=== PATIENT | male | born 1940 | race African-American/Black ===

== ENCOUNTER 2020-03-10 05:10 | Inpatient (IN) | payer MEDICARE, OTHER ==
[2020-03-10] VITALS (15 sets, daily range): BP systolic 96–161; BP diastolic 67–95
[~2020-03-10] VITALS: Ht 177.8 cm; Wt 61.7 kg
--- NOTE | 2020-03-10 05:25 | Emergency Room Report ---
History of Present Illness General Chief Complaint: Dyspnea/Respdistress Source: Patient, Medical Record, EMS (Raimundo Jimenez MD) Present Illness HPI This is an 79-year-old male from senior care. He has a history of high blood pressure COPD. He presents with respiratory distress and shortness of breath. Onset today. He was positive for COVID on March 05, 2020. Symptoms worsened tonight. He said he could not breathe. Per EMS, he was 90% on room air. They put him on oxygen and brought him here. Patient has no fever chills but no nausea no vomiting. Cough is not productive in nature. No chest pain. 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 ASSISTANT: Yes COVID-19 Screening: Positive COVID-19 COVID-19 Testing Source: snf (Raimundo Jimenez MD) Patient History Past Medical History: see triage record, old chart reviewed, HTN, COPD, pneumonia, CVA/TIA Past Surgical History: other Pertinent Family History: none Social History: Denies: smoking Immunizations: other Reviewed Nursing Documentation: PMH: Agreed; PSxH: Agreed (Raimundo Jimenez MD) Review of Systems Eye: Denies: eye pain, blurred vision ENT: Denies: ear pain, nose congestion, throat swelling Respiratory: Reports: cough, shortness of breath Cardiovascular: Denies: chest pain, palpitations Gastrointestinal: Denies: abdominal pain, diarrhea, nausea, vomiting Musculoskeletal: Denies: back pain, joint pain Skin: Denies: rash Neurological: Denies: headache, numbness Endocrine: Denies: increased thirst, increased urine Hematologic/Lymphatic: Denies: easy bruising All Other Systems: negative except mentioned in HPI (Raimundo Jimenez MD) Physical Exam Vital Signs Date Time Temp Pulse Resp B/P (MAP) Pulse Ox O2 Delivery O2 Flow Rate FiO2 03/10/20 05:07 97.0 88 22 143/95 (111) 99 Non-Rebreather Vitals with hypoxia Sp02 EP Interpretation: reviewed, abnormal General Appearance: alert, mild distress, Chronically Ill Head: normocephalic, atraumatic Eyes: bilateral eye PERRL, bilateral eye EOMI ENT: hearing grossly normal, normal pharynx Neck: full range of motion, supple, no meningismus Respiratory: chest non-tender, respiratory distress, decreased breath sounds, rhonchi Cardiovascular #1: regular rate, rhythm, no murmur Gastrointestinal: normal bowel sounds, non tender, no mass, no organomegaly, no bruit, non-distended Musculoskeletal: back normal, normal range of motion Neurologic: alert, grossly normal Psychiatric: mood/affect normal Skin: no rash Lymphatic: normal inspection (Raimundo Jimenez MD) Procedures Critical Care Time Critical Care Time Critical care is mandated in this patient who presented with respiratory failure from covered pneumonia. Patient require my urgent intervention to attenuate the risks of the metabolic collapse which may lead to cardiovascular collapse and . Critical care time is 35 minutes excluding any reportable procedure. Critical care time included evaluation, multiple reevaluation, looking at old charts, interpreting laboratory and diagnostic data, discussing case with patient and family and consultants, and charting. (Raimundo Jimenez MD) Medical Decision Making Diagnostic Impression: Primary Impression: Pneumonia due to COVID-19 virus Additional Impression: Respiratory failure with hypoxia Qualified Codes: J96.21 - Acute and chronic respiratory failure with hypoxia ER Course Patient presents with respiratory distress. He is positive for COVID on March 05. He is currently on azithromycin at the senior care. I gave him Lovenox and steroid here also. Patient will be admitted for further work-up. Prognosis poor because of his age and multiple medical problems. Patient will be admitted under service of Dr. Saul. (Raimundo Jimenez MD) ER Course Patient was endorsed to me by Dr. Jimenez. Patient was noted to have COVID pneumonia as well as chronic respiratory failure. Continue to be somewhat tachypneic and despite this his CO2 was somewhat elevated. Coronavirus testing was positive and patient was in a negative pressure room he was started on BiPAP. Dr. Torres Saul was contacted for inpatient management Labs Test 03/10/20 05:45 03/10/20 06:50 White Blood Count 4.1 K/UL (4.8-10.8) Red Blood Count 4.21 M/UL (4.70-6.10) Hemoglobin 12.2 G/DL (14.2-18.0) Hematocrit 37.5 % (42.0-52.0) Mean Corpuscular Volume 89 FL (80-99) Mean Corpuscular Hemoglobin 29.0 PG (27.0-31.0) Mean Corpuscular Hemoglobin Concent 32.6 G/DL (32.0-36.0) Red Cell Distribution Width 12.9 % (11.6-14.8) Platelet Count 140 K/UL (150-450) Mean Platelet Volume 4.9 FL (6.5-10.1) Neutrophils (%) (Auto) 60.1 % (45.0-75.0) Lymphocytes (%) (Auto) 26.1 % (20.0-45.0) Monocytes (%) (Auto) 11.9 % (1.0-10.0) Eosinophils (%) (Auto) 0.5 % (0.0-3.0) Basophils (%) (Auto) 1.4 % (0.0-2.0) Prothrombin Time 11.3 SEC (9.30-11.50) Prothromb Time International Ratio 1.0 (0.9-1.1) Activated Partial Thromboplast Time 22 SEC (23-33) D-Dimer 0.37 mg/L FEU (0.00-0.49) Sodium Level 139 MMOL/L (136-145) Potassium Level 4.1 MMOL/L (3.5-5.1) Chloride Level 100 MMOL/L (98-107) Carbon Dioxide Level 32 MMOL/L (21-32) Anion Gap 7 mmol/L (5-15) Blood Urea Nitrogen 19 mg/dL (7-18) Creatinine 0.9 MG/DL (0.55-1.30) Estimat Glomerular Filtration Rate > 60 mL/min (>60) Glucose Level 120 MG/DL (74-106) Lactic Acid Level 1.30 mmol/L (0.4-2.0) Calcium Level 8.8 MG/DL (8.5-10.1) Ferritin 335 NG/ML (8-388) Total Bilirubin 0.4 MG/DL (0.2-1.0) Aspartate Amino Transf (AST/SGOT) 47 U/L (15-37) Alanine Aminotransferase (ALT/SGPT) 30 U/L (12-78) Alkaline Phosphatase 66 U/L (46-116) Lactate Dehydrogenase 364 U/L (81-234) Total Creatine Kinase 274 U/L (26-308) Creatine Kinase MB 6.3 NG/ML (0.0-3.6) Creatine Kinase MB Relative Index 2.2 Troponin I 0.011 ng/mL (0.000-0.056) C-Reactive Protein, Quantitative 11.6 mg/dL (0.00-0.90) Pro-B-Type Natriuretic Peptide 61 pg/mL (0-125) Total Protein 7.3 G/DL (6.4-8.2) Albumin 3.0 G/DL (3.4-5.0) Globulin 4.3 g/dL Albumin/Globulin Ratio 0.7 (1.0-2.7) Lipase 111 U/L (73-393) Arterial Blood pH 7.303 (7.350-7.450) Arterial Blood Partial Pressure CO2 68.2 mmHg (35.0-45.0) Arterial Blood Partial Pressure O2 227.2 mmHg (75.0-100.0) Arterial Blood HCO3 33.0 mmol/L (22.0-26.0) Arterial Blood Oxygen Saturation 99.1 % (95-100) Arterial Blood Base Excess 4.9 (-2-2) Chadwick Test Positive (Ellis Prieto MD) EKG Diagnostic Results Rate: normal Rhythm: NSR ST Segments: other - NSST changes (Raimundo Jimenez MD) Rhythm Strip Diag. Results EP Interpretation: yes Rate: 100 Rhythm: NSR, no PVC's, no ectopy (Raimundo Jimenez MD) Last Vital Signs Date Time Temp Pulse Resp B/P (MAP) Pulse Ox O2 Delivery O2 Flow Rate FiO2 03/10/20 05:07 97.0 88 22 143/95 (111) 99 Non-Rebreather Status: improved (Raimundo Jimenez MD) Status: improved (Ellis Prieto MD) Disposition: ADMITTED INPATIENT Condition: Serious Raimundo Jimenez MD Mar 10, 2020 05:25 Ellis Prieto MD Mar 10, 2020 07:25
[2020-03-10] MEDS ORDERED: cefTRIAXone 1 GM in NS 55 ML IVPB ONE (05:30)
[2020-03-10] MEDS ORDERED: dexAMETHasone 10mg/ml Inj IV ONE (05:30)
[2020-03-10] MEDS ORDERED: Enoxaparin 100mg Inj SUBQ ONE (05:30)
[2020-03-10] MEDS ORDERED: Azithromycin 500 MG in NS 275 ML IV ONE (05:30)
[2020-03-10] MEDS ORDERED: MELATONIN3 MG ORAL (05:57)
[2020-03-10] MEDS ORDERED: PREDNISONE20 MG ORAL (05:57)
[2020-03-10] MEDS ORDERED: ELIQUIS2.5 MG PO (05:57)
[2020-03-10] MEDS ORDERED: DOCUSATE SODIU100 MG ORAL (05:57)
[2020-03-10] MEDS ORDERED: BISACODYL5 MG ORAL (05:57)
[2020-03-10] MEDS ORDERED: FAMOTIDINE20 MG ORAL (05:57)
[2020-03-10] MEDS ORDERED: ACETAMINOPHEN325 M1 ORAL (05:57)
[2020-03-10] MEDS ORDERED: FLOMAX0.4 MG ORAL (05:57)
[2020-03-10] MEDS ORDERED: BACLOFEN10 MG ORAL (05:57)
[2020-03-10] MEDS ORDERED: GABAPENTIN400 MG ORAL (05:57)
[2020-03-10 06:05] LABS: BASOPHILS % (AUTO) 1.4 % (0.0-2.0); EOSINOPHILS % (AUTO) 0.5 % (0.0-3.0); HEMATOCRIT 37.5 % (42.0-52.0); HEMOGLOBIN 12.2 G/DL (14.2-18.0); LYMPHOCYTES % (AUTO) 26.1 % (20.0-45.0); MEAN CORPUSCULAR VOLUME 89 FL (80-99); MONOCYTES % (AUTO) 11.9 % (1.0-10.0); NEUTROPHILS % (AUTO) 60.1 % (45.0-75.0); PLATELET COUNT 140 K/UL (150-450); RED BLOOD COUNT 4.21 M/UL (4.70-6.10); RED CELL DISTRIBUTION WIDTH 12.9 % (11.6-14.8); WHITE BLOOD COUNT 4.1 K/UL (4.8-10.8)
[2020-03-10 06:23] LABS: ANION GAP 7 mmol/L (5-15); BLOOD UREA NITROGEN 19 mg/dL (7-18); CALCIUM 8.8 MG/DL (8.5-10.1); CARBON DIOXIDE 32 MMOL/L (21-32); CHLORIDE 100 MMOL/L (98-107); CREATININE 0.9 MG/DL (0.55-1.30); POTASSIUM 4.1 MMOL/L (3.5-5.1); SODIUM 139 MMOL/L (136-145)
[2020-03-10 06:38] LABS: ALANINE AMINOTRANSFERASE 30 U/L (12-78); ALBUMIN/GLOBULIN RATIO 0.7 (1.0-2.7); ALKALINE PHOSPHATASE 66 U/L (46-116); ASPARTATE AMINO TRANSFERASE 47 U/L (15-37); BILIRUBIN,TOTAL 0.4 MG/DL (0.2-1.0); CKMB 6.3 NG/ML (0.0-3.6); CREATINE KINASE 274 U/L (26-308); FERRITIN 335 NG/ML (8-388); LACTATE DEHYDROGENASE 364 U/L (81-234)
[2020-03-10] MEDS ORDERED: Albuterol/Ipratropium 3ml neb HHN PRN (07:30)
[2020-03-10] MEDS ORDERED: Promethazine/Codeine 5ml UD ORAL PRN (07:30)
--- NOTE | 2020-03-10 09:56 | Diagnostic Imaging Report ---
Indication: Shortness of breath Technique: One view of the chest Comparison: none Findings: The lungs are hyperinflated. There is likely bullous change at the left lung base and possibly the right lung base. Lower lobe hyperinflation results in some volume loss of the right upper lobe. There may be infiltrate in the right upper lobe. The costophrenic angles are blunted. The heart size is normal. The aorta is tortuous and ectatic Impression: Possible right upper lobe infiltrate COPD changes Bilateral costophrenic angle blunting. Likely related to the hyperinflation but small effusions also possible.
--- NOTE | 2020-03-10 11:25 | Consultation ---
History of Present Illness General Date patient seen: Mar 10, 2020 Chief Complaint: Dyspnea/Respdistress Present Illness HPI 79-year-old male with history of high blood pressure, COPD, CVA intermediate resident presented to ER with CC of respiratory distress and shortness of sagrario th for one day. He said he could not breathe. Per EMS, he was 90% on room air. They put him on oxygen and brought him here. Patient has no fever chills but no nausea no vomiting. Cough is not productive in nature. Allergies: Coded Allergies: PENICILLINS (Verified Allergy, Unknown, 03/10/20) PHENYTOIN (Verified Allergy, Unknown, 03/10/20) Medication History Scheduled Baclofen* (Baclofen*), 5 MG ORAL THREE TIMES A DAY, (Reported) Bisacodyl* (Dulcolax*), 5 MG ORAL DAILY, (Reported) Docusate Sodium* (Docusate Sodium*), 200 MG ORAL DAILY, (Reported) Famotidine* (Pepcid 20mg tablet*), 40 MG ORAL DAILY, (Reported) Gabapentin* (Gabapentin*), 300 MG ORAL THREE TIMES A DAY, (Reported) Prednisone* (Prednisone*), 20 MG ORAL DAILY, (Reported) Tamsulosin HCl (Flomax), 0.4 MG ORAL DAILY, (Reported) Scheduled PRN Acetaminophen* (Acetaminophen 325MG Tablet*), 325 MG ORAL Q4H PRN for , (Reported) Melatonin (Melatonin), 3 MG ORAL BEDTIME PRN for Insomnia, (Reported) Miscellaneous Medications Apixaban (Eliquis), 2.5 MG PO, (Reported) Patient History Healthcare decision maker Resuscitation status Advanced Directive on File Past Medical/Surgical History Past Medical/Surgical History: (1) History of CVA (cerebrovascular accident) (2) COPD (chronic obstructive pulmonary disease) (3) HTN (hypertension) Review of Systems Respiratory: Reports: cough, shortness of breath All Other Systems: negative except mentioned in HPI Physical Exam General Appearance: WD/WN Lines, tubes and drains: peripheral HEENT: normocephalic, atraumatic Neck: non-tender, normal alignment Respiratory/Chest: chest wall non-tender, lungs clear Cardiovascular/Chest: normal peripheral pulses, normal rate Abdomen: normal bowel sounds, non tender Genitourinary/Rectal: normal genital exam Extremities: normal range of motion Skin Exam: normal pigmentation Neurologic: color consultant II-XII grossly normal Last 24 Hour Vital Signs Date Time Temp Pulse Resp B/P (MAP) Pulse Ox O2 Delivery O2 Flow Rate FiO2 03/10/20 09:17 88 22 125/77 100 Bi-pap 15.0 35 03/10/20 08:45 15.0 35 03/10/20 08:15 87 40 122/70 70 Venturi Mask 15.0 03/10/20 07:09 96 33 100 28 03/10/20 06:40 97.0 94 22 119/67 100 Non-Rebreather 15.0 03/10/20 05:59 97.0 102 22 143/95 99 Non-Rebreather 03/10/20 05:59 102 22 Non-Rebreather 15.0 03/10/20 05:07 97.0 88 22 143/95 (111) 99 Non-Rebreather Intake and Output 03/09/20 03/10/20 19:00 07:00 Intake Total 55 ml Balance 55 ml Intake IV Total 55 ml Laboratory Tests Test 03/10/20 05:45 03/10/20 06:50 White Blood Count 4.1 K/UL (4.8-10.8) L Red Blood Count 4.21 M/UL (4.70-6.10) L Hemoglobin 12.2 G/DL (14.2-18.0) L Hematocrit 37.5 % (42.0-52.0) L Mean Corpuscular Volume 89 FL (80-99) Mean Corpuscular Hemoglobin 29.0 PG (27.0-31.0) Mean Corpuscular Hemoglobin Concent 32.6 G/DL (32.0-36.0) Red Cell Distribution Width 12.9 % (11.6-14.8) Platelet Count 140 K/UL (150-450) L Mean Platelet Volume 4.9 FL (6.5-10.1) L Neutrophils (%) (Auto) 60.1 % (45.0-75.0) Lymphocytes (%) (Auto) 26.1 % (20.0-45.0) Monocytes (%) (Auto) 11.9 % (1.0-10.0) H Eosinophils (%) (Auto) 0.5 % (0.0-3.0) Basophils (%) (Auto) 1.4 % (0.0-2.0) Prothrombin Time 11.3 SEC (9.30-11.50) Prothromb Time International Ratio 1.0 (0.9-1.1) Activated Partial Thromboplast Time 22 SEC (23-33) L D-Dimer 0.37 mg/L FEU (0.00-0.49) Sodium Level 139 MMOL/L (136-145) Potassium Level 4.1 MMOL/L (3.5-5.1) Chloride Level 100 MMOL/L (98-107) Carbon Dioxide Level 32 MMOL/L (21-32) Anion Gap 7 mmol/L (5-15) Blood Urea Nitrogen 19 mg/dL (7-18) H Creatinine 0.9 MG/DL (0.55-1.30) Estimat Glomerular Filtration Rate > 60 mL/min (>60) Glucose Level 120 MG/DL (74-106) H Lactic Acid Level 1.30 mmol/L (0.4-2.0) Calcium Level 8.8 MG/DL (8.5-10.1) Ferritin 335 NG/ML (8-388) Total Bilirubin 0.4 MG/DL (0.2-1.0) Aspartate Amino Transf (AST/SGOT) 47 U/L (15-37) H Alanine Aminotransferase (ALT/SGPT) 30 U/L (12-78) Alkaline Phosphatase 66 U/L (46-116) Lactate Dehydrogenase 364 U/L (81-234) H Total Creatine Kinase 274 U/L (26-308) Creatine Kinase MB 6.3 NG/ML (0.0-3.6) H Creatine Kinase MB Relative Index 2.2 Troponin I 0.011 ng/mL (0.000-0.056) C-Reactive Protein, Quantitative 11.6 mg/dL (0.00-0.90) H Pro-B-Type Natriuretic Peptide 61 pg/mL (0-125) Total Protein 7.3 G/DL (6.4-8.2) Albumin 3.0 G/DL (3.4-5.0) L Globulin 4.3 g/dL Albumin/Globulin Ratio 0.7 (1.0-2.7) L Lipase 111 U/L (73-393) Arterial Blood pH 7.303 (7.350-7.450) Arterial Blood Partial Pressure CO2 68.2 mmHg (35.0-45.0) *H Arterial Blood Partial Pressure O2 227.2 mmHg (75.0-100.0) H Arterial Blood HCO3 33.0 mmol/L (22.0-26.0) H Arterial Blood Oxygen Saturation 99.1 % (95-100) Arterial Blood Base Excess 4.9 (-2-2) H Chadwick Test Positive Microbiology Date/Time Source Procedure Growth Status 03/10/20 06:10 Rectum Received 03/10/20 05:20 Nasopharynx SARS-CoV-2 RdRp Gene Assay - Final Complete Height (Feet): 5 Height (Inches): 10.00 Weight (Pounds): 220 Medications Current Medications Medications (Trade) Dose Ordered Sig/Armand Route PRN Reason Start Time Stop Time Status Last Admin Dose Admin Acetaminophen (Tylenol) 650 mg Q4H PRN ORAL FEVER 03/10/20 07:30 04/09/20 07:29 Albuterol/ Ipratropium (Albuterol/ Ipratropium) 3 ml EVERY 4 HOURS PRN HHN Shortness of Breath 03/10/20 07:30 03/15/20 07:29 03/10/20 08:46 Azithromycin 250 mg/Dextrose 275 ml @ 275 mls/hr Q24HRS IV 03/11/20 06:00 03/16/20 05:59 Ceftriaxone Sodium 1 gm/ Dextrose 55 ml @ 110 mls/hr Q24H IVPB 03/11/20 05:00 03/18/20 04:59 Dextrose (Dextrose 50%) 25 ml Q30M PRN IV Hypoglycemia 03/10/20 07:30 06/08/20 07:29 Dextrose (Dextrose 50%) 50 ml Q30M PRN IV Hypoglycemia 03/10/20 07:30 06/08/20 07:29 Gabapentin (Neurontin) 300 mg THREE TIMES A DAY ORAL 03/10/20 09:00 04/09/20 08:59 Heparin Sodium (Porcine) (Heparin 5000 units/ml) 5,000 units EVERY 12 HOURS SUBQ 03/10/20 21:00 04/24/20 20:59 Ondansetron HCl (Zofran) 4 mg Q6H PRN IVP Nausea & Vomiting 03/10/20 07:30 04/09/20 07:29 Polyethylene Glycol (Miralax) 17 gm DAILYPRN PRN ORAL Constipation 03/10/20 07:30 04/09/20 07:29 Promethazine HCl/ Codeine (Phenergan with Codeine) 5 ml EVERY 6 HOURS PRN ORAL cough 03/10/20 07:30 04/09/20 07:29 Assessment/Plan Problem List: (1) Pneumonia due to COVID-19 virus ICD Codes: U07.1 - COVID-19; J12.89 - Other viral pneumonia SNOMED: 421404027, 908920842 (2) COPD (chronic obstructive pulmonary disease) ICD Codes: J44.9 - Chronic obstructive pulmonary disease, unspecified SNOMED: 74033311 (3) HTN (hypertension) ICD Codes: I10 - Essential (primary) hypertension SNOMED: 33196322 (4) History of CVA (cerebrovascular accident) ICD Codes: Z86.73 - Personal history of transient ischemic attack (TIA), and cerebral infarction without residual deficits SNOMED: 652202402 Assessment/Plan: respiratory treatment titrate fio2 to sat of 92% check sputum iv abx Decadron respiratory isolation Sayra Fay MD Mar 10, 2020 11:25
[2020-03-10 11:59] LABS: APPEARANCE,URINE CLEAR; BILIRUBIN, URINE NEGATIVE (NEGATIVE); GLUCOSE, URINE (UA) NEGATIVE (NEGATIVE); KETONES,URINE 3+ (NEGATIVE); LEUKOCYTE ESTERASE ,URINE NEGATIVE (NEGATIVE); NITRITE,URINE NEGATIVE (NEGATIVE); PH,URINE 6.5 (4.5-8.0); PROTEIN,URINE 2+ (NEGATIVE); UROBILINOGEN,URINE 4 MG/DL (0.0-1.0)
[2020-03-10 12:02] LABS: COLOR,URINE YELLOW
--- NOTE | 2020-03-10 15:22 | Consultation ---
History of Present Illness General Date patient seen: Mar 10, 2020 Chief Complaint: Dyspnea/Respdistress Present Illness HPI 79 y/o M with hx of HTN, COPD, CVA/TIA, [place] resident presented to ED on 03/10/20 with 1 days of SOB and non productive cough. 90% at RA per EMS. Denied f/c, n/v, chest pain Allergies: Coded Allergies: PENICILLINS (Verified Allergy, Unknown, 03/10/20) PHENYTOIN (Verified Allergy, Unknown, 03/10/20) Medication History Scheduled Baclofen* (Baclofen*), 5 MG ORAL THREE TIMES A DAY, (Reported) Bisacodyl* (Dulcolax*), 5 MG ORAL DAILY, (Reported) Docusate Sodium* (Docusate Sodium*), 200 MG ORAL DAILY, (Reported) Famotidine* (Pepcid 20mg tablet*), 40 MG ORAL DAILY, (Reported) Gabapentin* (Gabapentin*), 300 MG ORAL THREE TIMES A DAY, (Reported) Prednisone* (Prednisone*), 20 MG ORAL DAILY, (Reported) Tamsulosin HCl (Flomax), 0.4 MG ORAL DAILY, (Reported) Scheduled PRN Acetaminophen* (Acetaminophen 325MG Tablet*), 325 MG ORAL Q4H PRN for , (Reported) Melatonin (Melatonin), 3 MG ORAL BEDTIME PRN for Insomnia, (Reported) Miscellaneous Medications Apixaban (Eliquis), 2.5 MG PO, (Reported) Patient History Healthcare decision maker Resuscitation status Advanced Directive on File Patient History Narrative Pmhx: as above Shx:Denies: smoking Fhx: non contributory Review of Systems All Other Systems: negative except mentioned in HPI ROS Narrative General Appearance: WD/WN Lines, tubes and drains: peripheral HEENT: normocephalic, atraumatic Neck: non-tender, normal alignment Respiratory/Chest: chest wall non-tender, lungs clear Cardiovascular/Chest: normal peripheral pulses, normal rate Abdomen: normal bowel sounds, non tender Extremities: normal range of motion Skin Exam: normal pigmentation Physical Exam Last 24 Hour Vital Signs Date Time Temp Pulse Resp B/P (MAP) Pulse Ox O2 Delivery O2 Flow Rate FiO2 03/10/20 11:27 97.6 81 22 136/82 98 Bi-pap 15.0 35 03/10/20 10:45 90 28 99 Bi-Pap 28 95 28 100 03/10/20 09:17 88 22 125/77 100 Bi-pap 15.0 35 03/10/20 08:45 15.0 35 03/10/20 08:15 87 40 122/70 70 Venturi Mask 15.0 03/10/20 07:09 96 33 100 28 03/10/20 06:40 97.0 94 22 119/67 100 Non-Rebreather 15.0 03/10/20 05:59 97.0 102 22 143/95 99 Non-Rebreather 03/10/20 05:59 102 22 Non-Rebreather 15.0 03/10/20 05:07 97.0 88 22 143/95 (111) 99 Non-Rebreather Intake and Output 03/09/20 03/10/20 19:00 07:00 Intake Total 55 ml Balance 55 ml Intake IV Total 55 ml Laboratory Tests Test 03/10/20 05:45 03/10/20 06:50 03/10/20 11:40 White Blood Count 4.1 K/UL (4.8-10.8) L Red Blood Count 4.21 M/UL (4.70-6.10) L Hemoglobin 12.2 G/DL (14.2-18.0) L Hematocrit 37.5 % (42.0-52.0) L Mean Corpuscular Volume 89 FL (80-99) Mean Corpuscular Hemoglobin 29.0 PG (27.0-31.0) Mean Corpuscular Hemoglobin Concent 32.6 G/DL (32.0-36.0) Red Cell Distribution Width 12.9 % (11.6-14.8) Platelet Count 140 K/UL (150-450) L Mean Platelet Volume 4.9 FL (6.5-10.1) L Neutrophils (%) (Auto) 60.1 % (45.0-75.0) Lymphocytes (%) (Auto) 26.1 % (20.0-45.0) Monocytes (%) (Auto) 11.9 % (1.0-10.0) H Eosinophils (%) (Auto) 0.5 % (0.0-3.0) Basophils (%) (Auto) 1.4 % (0.0-2.0) Prothrombin Time 11.3 SEC (9.30-11.50) Prothromb Time International Ratio 1.0 (0.9-1.1) Activated Partial Thromboplast Time 22 SEC (23-33) L D-Dimer 0.37 mg/L FEU (0.00-0.49) Sodium Level 139 MMOL/L (136-145) Potassium Level 4.1 MMOL/L (3.5-5.1) Chloride Level 100 MMOL/L (98-107) Carbon Dioxide Level 32 MMOL/L (21-32) Anion Gap 7 mmol/L (5-15) Blood Urea Nitrogen 19 mg/dL (7-18) H Creatinine 0.9 MG/DL (0.55-1.30) Estimat Glomerular Filtration Rate > 60 mL/min (>60) Glucose Level 120 MG/DL (74-106) H Lactic Acid Level 1.30 mmol/L (0.4-2.0) Calcium Level 8.8 MG/DL (8.5-10.1) Ferritin 335 NG/ML (8-388) Total Bilirubin 0.4 MG/DL (0.2-1.0) Aspartate Amino Transf (AST/SGOT) 47 U/L (15-37) H Alanine Aminotransferase (ALT/SGPT) 30 U/L (12-78) Alkaline Phosphatase 66 U/L (46-116) Lactate Dehydrogenase 364 U/L (81-234) H Total Creatine Kinase 274 U/L (26-308) Creatine Kinase MB 6.3 NG/ML (0.0-3.6) H Creatine Kinase MB Relative Index 2.2 Troponin I 0.011 ng/mL (0.000-0.056) C-Reactive Protein, Quantitative 11.6 mg/dL (0.00-0.90) H Pro-B-Type Natriuretic Peptide 61 pg/mL (0-125) Total Protein 7.3 G/DL (6.4-8.2) Albumin 3.0 G/DL (3.4-5.0) L Globulin 4.3 g/dL Albumin/Globulin Ratio 0.7 (1.0-2.7) L Lipase 111 U/L (73-393) Arterial Blood pH 7.303 (7.350-7.450) Arterial Blood Partial Pressure CO2 68.2 mmHg (35.0-45.0) *H Arterial Blood Partial Pressure O2 227.2 mmHg (75.0-100.0) H Arterial Blood HCO3 33.0 mmol/L (22.0-26.0) H Arterial Blood Oxygen Saturation 99.1 % (95-100) Arterial Blood Base Excess 4.9 (-2-2) H Chadwick Test Positive Urine Color Yellow Urine Appearance Clear Urine pH 6.5 (4.5-8.0) Urine Specific Elbert 1.005 (1.005-1.035) Urine Protein 2+ (NEGATIVE) H Urine Glucose (UA) Negative (NEGATIVE) Urine Ketones 3+ (NEGATIVE) H Urine Blood 4+ (NEGATIVE) H Urine Nitrite Negative (NEGATIVE) Urine Bilirubin Negative (NEGATIVE) Urine Urobilinogen 4 MG/DL (0.0-1.0) H Urine Leukocyte Esterase Negative (NEGATIVE) Urine RBC 2-4 /HPF (0 - 0) H Urine WBC 0 /HPF (0 - 0) Urine Squamous Epithelial Cells None /LPF (NONE/OCC) Urine Bacteria None /HPF (NONE) Microbiology Date/Time Source Procedure Growth Status 03/10/20 06:10 Rectum Received 03/10/20 05:20 Nasopharynx SARS-CoV-2 RdRp Gene Assay - Final Complete Height (Feet): 5 Height (Inches): 10.00 Weight (Pounds): 220 Medications Current Medications Medications (Trade) Dose Ordered Sig/Armand Route PRN Reason Start Time Stop Time Status Last Admin Dose Admin Acetaminophen (Tylenol) 650 mg Q4H PRN ORAL FEVER 03/10/20 07:30 04/09/20 07:29 Albuterol/ Ipratropium (Albuterol/ Ipratropium) 3 ml EVERY 4 HOURS PRN HHN Shortness of Breath 03/10/20 07:30 03/15/20 07:29 03/10/20 08:46 Azithromycin 250 mg/Dextrose 275 ml @ 275 mls/hr Q24HRS IV 03/11/20 06:00 03/16/20 05:59 Ceftriaxone Sodium 1 gm/ Dextrose 55 ml @ 110 mls/hr Q24H IVPB 03/11/20 05:00 03/18/20 04:59 Dextrose (Dextrose 50%) 25 ml Q30M PRN IV Hypoglycemia 03/10/20 07:30 06/08/20 07:29 Dextrose (Dextrose 50%) 50 ml Q30M PRN IV Hypoglycemia 03/10/20 07:30 06/08/20 07:29 Gabapentin (Neurontin) 300 mg THREE TIMES A DAY ORAL 03/10/20 09:00 04/09/20 08:59 Heparin Sodium (Porcine) (Heparin 5000 units/ml) 5,000 units EVERY 12 HOURS SUBQ 03/10/20 21:00 04/24/20 20:59 Ondansetron HCl (Zofran) 4 mg Q6H PRN IVP Nausea & Vomiting 03/10/20 07:30 04/09/20 07:29 Polyethylene Glycol (Miralax) 17 gm DAILYPRN PRN ORAL Constipation 03/10/20 07:30 04/09/20 07:29 Promethazine HCl/ Codeine (Phenergan with Codeine) 5 ml EVERY 6 HOURS PRN ORAL cough 03/10/20 07:30 04/09/20 07:29 Assessment/Plan Assessment/Plan: Abx: Ceftriaxone 03/10- Azithromycin 03/10- Assessment: COVID19 pneumonia Acute hypoxic/hypercapnic resp failure- sp VM> bipap -03/10 CXR: Possible right upper lobe infiltrate. COPD changes. Bilateral costophrenic angle blunting. Likely related to the hyperinflation but small effusions also possible. rapid COVID PCR + Afebrile Pancytopenia -u/a neg Mild AST elevation HTN COPD CVA/TIA [place] resident ([facility]) Plan: -Continue Ceftriaxone and Azithromycin #1/5 -Decadron #1/10 -Start Remdesivir- explained risks and benefits; patient agreed. -f/u cx -Monitor CBC/CMP, temperatures -COVID19 isolation Thank you for this consultation. Will continue to follow along with you. Discussed with Laurence Swartz M.D. Mar 10, 2020 15:22
--- NOTE | 2020-03-10 17:40 | Cardiology Report ---
APPROVED REPORT EKG Measurement Heart [id number] <Conclusion> Normal sinus rhythm Right atrial enlargement Left axis deviation Pulmonary disease pattern Septal infarct, age undetermined Abnormal ECG
[2020-03-10] MEDS: Heparin 5000 units/ml inj SUBQ SCH (21:08)
[2020-03-10] MEDS ORDERED: Remdesivir Fact Sheet MISC SCH (21:30)
[2020-03-10] MEDS ORDERED: Loading Dose:Remdesivir 200mg/NS 210ml IV SCH ×2 (22:00)
[2020-03-11] VITALS (14 sets, daily range): BP systolic 97–141; BP diastolic 68–97
[2020-03-11] MEDS: cefTRIAXone 1 GM in D5W 55 ML IVPB SCH (05:43)
[2020-03-11] MEDS ORDERED: Azithromycin 250 MG in D5W 275 ML IV SCH (06:00)
[2020-03-11 06:04] LABS: HEMATOCRIT 41.5 % (42.0-52.0); HEMOGLOBIN 13.5 G/DL (14.2-18.0); MEAN CORPUSCULAR VOLUME 89 FL (80-99); PLATELET COUNT 186 K/UL (150-450); RED BLOOD COUNT 4.66 M/UL (4.70-6.10); RED CELL DISTRIBUTION WIDTH 12.5 % (11.6-14.8); WHITE BLOOD COUNT 3.4 K/UL (4.8-10.8)
[2020-03-11 06:40] LABS: ALANINE AMINOTRANSFERASE 43 U/L (12-78); ALBUMIN 3.2 G/DL (3.4-5.0); ALBUMIN/GLOBULIN RATIO 0.9 (1.0-2.7); ALKALINE PHOSPHATASE 68 U/L (46-116); ANION GAP 8 mmol/L (5-15); ASPARTATE AMINO TRANSFERASE 74 U/L (15-37); BILIRUBIN,TOTAL 0.4 MG/DL (0.2-1.0); BLOOD UREA NITROGEN 19 mg/dL (7-18); CALCIUM 9.3 MG/DL (8.5-10.1); CARBON DIOXIDE 33 MMOL/L (21-32); CHLORIDE 100 MMOL/L (98-107); CREATININE 0.8 MG/DL (0.55-1.30); PHOSPHORUS 3.4 MG/DL (2.5-4.9); POTASSIUM 4.2 MMOL/L (3.5-5.1); SODIUM 141 MMOL/L (136-145)
--- NOTE | 2020-03-11 08:25 | Pulmonolgy Critical Care Note ---
Critical Care - Asmt/Plan Problems: (1) Respiratory failure with hypoxia (2) Pneumonia due to COVID-19 virus (3) COPD (chronic obstructive pulmonary disease) (4) Seizure disorder (5) Major depression (6) Hx of prostatic malignancy (7) HTN (hypertension) (8) History of CVA (cerebrovascular accident) Respiratory: monitor respiratory rate, adjust FIO2, CXR Cardiac: continue pressors, continue to monitor HR/BP, other - echo to assess right heart pressure, Renal: F/U I&O, keep IV fluid, check electrolytes Infectious Disease: check cultures, continue antibiotics Gastrointestinal: hold feedings Endocrine: monitor blood sugar Hematologic: monitor H/H, transfuse if hgb<8.5 Neurologic: PRN Ativan, keep patient comfortable Affect: PRN ativan Disposition: keep in ICU Notes Reviewed: unit control worker, cardio Discussed with: nurses, consultants, transplant case managerrecruiter account manager - Objective Last 24 Hour Vital Signs Date Time Temp Pulse Resp B/P (MAP) Pulse Ox O2 Delivery O2 Flow Rate FiO2 03/11/20 04:00 Bi-pap 03/11/20 04:00 15.0 35 03/11/20 04:00 80 27 102/72 (82) 95 03/11/20 03:30 77 33 98 70 03/11/20 03:15 81 03/11/20 03:00 79 29 141/76 (97) 100 03/11/20 02:00 77 23 111/77 (88) 100 03/11/20 01:00 78 31 127/92 (104) 99 03/11/20 00:00 97.7 81 26 119/69 (86) 100 03/11/20 00:00 15.0 35 03/11/20 00:00 Bi-pap 03/10/20 23:22 81 03/10/20 23:00 81 27 99 70 03/10/20 23:00 83 25 96/77 (83) 67 03/10/20 22:45 77 24 112/80 (91) 78 03/10/20 22:30 87 23 106/82 (90) 03/10/20 22:19 Bi-Pap 03/10/20 22:15 92 30 106/82 (90) 99 03/10/20 22:10 88 03/10/20 22:09 98.5 90 30 109/81 99 Bi-pap 03/10/20 22:02 97.8 87 27 138/80 (99) 85 03/10/20 21:00 97.8 90 33 110/86 99 Bi-pap 13.0 35 03/10/20 19:12 91 40 99 35 03/10/20 19:00 97.5 88 28 129/84 98 Bi-pap 15.0 28 03/10/20 17:30 88 27 152/76 98 Bi-pap 15.0 28 03/10/20 15:30 97.1 95 27 161/71 96 Bi-pap 15.0 28 03/10/20 14:44 92 27 98 28 03/10/20 13:30 98.0 86 22 149/79 95 Bi-pap 15.0 35 03/10/20 11:27 97.6 81 22 136/82 98 Bi-pap 15.0 35 03/10/20 10:45 90 28 99 Bi-Pap 28 95 28 100 03/10/20 09:17 88 22 125/77 100 Bi-pap 15.0 35 03/10/20 08:45 15.0 35 Status: awake Condition: critical, grave HEENT: atraumatic, normocephalic Neck: full ROM Lungs: rales, rhonchi Heart: HR/BP stable Abdomen: soft, non-tender Extremities: no C/C/E Decubiti: location Micro: Microbiology Date/Time Source Procedure Growth Status 03/10/20 06:10 Rectum Received 03/10/20 05:20 Nasopharynx SARS-CoV-2 RdRp Gene Assay - Final Complete Critical Care - Subjective Condition: critical EKG Rhythm: Sinus Rhythm FI02: 35 Vent Support Breath Rate: 14 Vent Support Mode: BiLevel Sputum Amount: None I&O: Intake and Output 03/10/20 03/11/20 19:00 07:00 Intake Total 275 ml 235 ml Output Total 300 ml Balance 275 ml -65 ml Intake IV Total 275 ml 235 ml Output Urine Total 300 ml # Bowel Movements 3 CXR: Laboratory Tests Test 03/10/20 11:40 03/11/20 05:24 Urine Color Yellow Urine Appearance Clear Urine pH 6.5 (4.5-8.0) Urine Specific [place] 1.005 (1.005-1.035) Urine Protein 2+ (NEGATIVE) H Urine Glucose (UA) Negative (NEGATIVE) Urine Ketones 3+ (NEGATIVE) H Urine Blood 4+ (NEGATIVE) H Urine Nitrite Negative (NEGATIVE) Urine Bilirubin Negative (NEGATIVE) Urine Urobilinogen 4 MG/DL (0.0-1.0) H Urine Leukocyte Esterase Negative (NEGATIVE) Urine RBC 2-4 /HPF (0 - 0) H Urine WBC 0 /HPF (0 - 0) Urine Squamous Epithelial Cells None /LPF (NONE/OCC) Urine Bacteria None /HPF (NONE) White Blood Count 3.4 K/UL (4.8-10.8) L Red Blood Count 4.66 M/UL (4.70-6.10) L Hemoglobin 13.5 G/DL (14.2-18.0) L Hematocrit 41.5 % (42.0-52.0) L Mean Corpuscular Volume 89 FL (80-99) Mean Corpuscular Hemoglobin 29.0 PG (27.0-31.0) Mean Corpuscular Hemoglobin Concent 32.6 G/DL (32.0-36.0) Red Cell Distribution Width 12.5 % (11.6-14.8) Platelet Count 186 K/UL (150-450) Mean Platelet Volume 6.6 FL (6.5-10.1) Neutrophils (%) (Auto) % (45.0-75.0) Lymphocytes (%) (Auto) % (20.0-45.0) Monocytes (%) (Auto) % (1.0-10.0) Eosinophils (%) (Auto) % (0.0-3.0) Basophils (%) (Auto) % (0.0-2.0) Neutrophils % (Manual) Pending Lymphocytes % (Manual) Pending Platelet Estimate Pending Platelet Morphology Pending Erythrocyte Sedimentation Rate 79 MM/HR (0-20) H Fibrinogen 680 mg/dL (200-400) H D-Dimer Pending Sodium Level 141 MMOL/L (136-145) Potassium Level 4.2 MMOL/L (3.5-5.1) Chloride Level 100 MMOL/L (98-107) Carbon Dioxide Level 33 MMOL/L (21-32) H Anion Gap 8 mmol/L (5-15) Blood Urea Nitrogen 19 mg/dL (7-18) H Creatinine 0.8 MG/DL (0.55-1.30) Estimat Glomerular Filtration Rate > 60 mL/min (>60) Glucose Level 94 MG/DL (74-106) Calcium Level 9.3 MG/DL (8.5-10.1) Phosphorus Level 3.4 MG/DL (2.5-4.9) Magnesium Level 2.2 MG/DL (1.8-2.4) Ferritin 425 NG/ML (8-388) H Total Bilirubin 0.4 MG/DL (0.2-1.0) Direct Bilirubin 0.1 MG/DL (0.0-0.3) Aspartate Amino Transf (AST/SGOT) 74 U/L (15-37) H Alanine Aminotransferase (ALT/SGPT) 43 U/L (12-78) Alkaline Phosphatase 68 U/L (46-116) Lactate Dehydrogenase 466 U/L (81-234) H C-Reactive Protein, Quantitative 7.7 mg/dL (0.00-0.90) H Total Protein 6.8 G/DL (6.4-8.2) Albumin 3.2 G/DL (3.4-5.0) L Globulin 3.6 g/dL Albumin/Globulin Ratio 0.9 (1.0-2.7) L Labs: Laboratory Tests Test 03/10/20 11:40 03/11/20 05:24 Urine Color Yellow Urine Appearance Clear Urine pH 6.5 (4.5-8.0) Urine Specific [place] 1.005 (1.005-1.035) Urine Protein 2+ (NEGATIVE) H Urine Glucose (UA) Negative (NEGATIVE) Urine Ketones 3+ (NEGATIVE) H Urine Blood 4+ (NEGATIVE) H Urine Nitrite Negative (NEGATIVE) Urine Bilirubin Negative (NEGATIVE) Urine Urobilinogen 4 MG/DL (0.0-1.0) H Urine Leukocyte Esterase Negative (NEGATIVE) Urine RBC 2-4 /HPF (0 - 0) H Urine WBC 0 /HPF (0 - 0) Urine Squamous Epithelial Cells None /LPF (NONE/OCC) Urine Bacteria None /HPF (NONE) White Blood Count 3.4 K/UL (4.8-10.8) L Red Blood Count 4.66 M/UL (4.70-6.10) L Hemoglobin 13.5 G/DL (14.2-18.0) L Hematocrit 41.5 % (42.0-52.0) L Mean Corpuscular Volume 89 FL (80-99) Mean Corpuscular Hemoglobin 29.0 PG (27.0-31.0) Mean Corpuscular Hemoglobin Concent 32.6 G/DL (32.0-36.0) Red Cell Distribution Width 12.5 % (11.6-14.8) Platelet Count 186 K/UL (150-450) Mean Platelet Volume 6.6 FL (6.5-10.1) Neutrophils (%) (Auto) % (45.0-75.0) Lymphocytes (%) (Auto) % (20.0-45.0) Monocytes (%) (Auto) % (1.0-10.0) Eosinophils (%) (Auto) % (0.0-3.0) Basophils (%) (Auto) % (0.0-2.0) Neutrophils % (Manual) Pending Lymphocytes % (Manual) Pending Platelet Estimate Pending Platelet Morphology Pending Erythrocyte Sedimentation Rate 79 MM/HR (0-20) H Fibrinogen 680 mg/dL (200-400) H D-Dimer Pending Sodium Level 141 MMOL/L (136-145) Potassium Level 4.2 MMOL/L (3.5-5.1) Chloride Level 100 MMOL/L (98-107) Carbon Dioxide Level 33 MMOL/L (21-32) H Anion Gap 8 mmol/L (5-15) Blood Urea Nitrogen 19 mg/dL (7-18) H Creatinine 0.8 MG/DL (0.55-1.30) Estimat Glomerular Filtration Rate > 60 mL/min (>60) Glucose Level 94 MG/DL (74-106) Calcium Level 9.3 MG/DL (8.5-10.1) Phosphorus Level 3.4 MG/DL (2.5-4.9) Magnesium Level 2.2 MG/DL (1.8-2.4) Ferritin 425 NG/ML (8-388) H Total Bilirubin 0.4 MG/DL (0.2-1.0) Direct Bilirubin 0.1 MG/DL (0.0-0.3) Aspartate Amino Transf (AST/SGOT) 74 U/L (15-37) H Alanine Aminotransferase (ALT/SGPT) 43 U/L (12-78) Alkaline Phosphatase 68 U/L (46-116) Lactate Dehydrogenase 466 U/L (81-234) H C-Reactive Protein, Quantitative 7.7 mg/dL (0.00-0.90) H Total Protein 6.8 G/DL (6.4-8.2) Albumin 3.2 G/DL (3.4-5.0) L Globulin 3.6 g/dL Albumin/Globulin Ratio 0.9 (1.0-2.7) L Sayra Fay MD Mar 11, 2020 08:25
[2020-03-11] MEDS: Azithromycin 250 MG in D5W 275 ML IV SCH ×2 (09:07→09:11)
--- NOTE | 2020-03-11 09:12 | Consultation ---
History of Present Illness General Chief Complaint: Dyspnea/Respdistress Present Illness HPI 79-year-old male with history of high blood pressure, COPD, CVA alf resident presented to ER with CC of respiratory distress and shortness of breath for one day. He said he could not breathe. Per EMS, he was 90% on room air. CXR showed right upper lobe infiltrate. Patient is currently on BiPAP in ICU Allergies: Coded Allergies: PENICILLINS (Verified Allergy, Unknown, 03/10/20) PHENYTOIN (Verified Allergy, Unknown, 03/10/20) Medication History Scheduled Baclofen* (Baclofen*), 5 MG ORAL THREE TIMES A DAY, (Reported) Bisacodyl* (Dulcolax*), 5 MG ORAL DAILY, (Reported) Docusate Sodium* (Docusate Sodium*), 200 MG ORAL DAILY, (Reported) Famotidine* (Pepcid 20mg tablet*), 40 MG ORAL DAILY, (Reported) Gabapentin* (Gabapentin*), 300 MG ORAL THREE TIMES A DAY, (Reported) Prednisone* (Prednisone*), 20 MG ORAL DAILY, (Reported) Tamsulosin HCl (Flomax), 0.4 MG ORAL DAILY, (Reported) Scheduled PRN Acetaminophen* (Acetaminophen 325MG Tablet*), 325 MG ORAL Q4H PRN for , (Reported) Melatonin (Melatonin), 3 MG ORAL BEDTIME PRN for Insomnia, (Reported) Miscellaneous Medications Apixaban (Eliquis), 2.5 MG PO, (Reported) Patient History Healthcare decision maker Resuscitation status Advanced Directive on File Review of Systems Constitutional: Reports: no symptoms Eye: Reports: no symptoms ENT: Reports: no symptoms Respiratory: Reports: shortness of breath Cardiovascular: Reports: no symptoms Gastrointestinal: Reports: no symptoms Genitourinary: Reports: no symptoms Musculoskeletal: Reports: no symptoms Skin: Reports: no symptoms Psychiatric: Reports: no symptoms Neurological: Reports: no symptoms Endocrine: Reports: no symptoms Hematologic/Lymphatic: Reports: no symptoms Physical Exam General Appearance: lethargic, mild distress Lines, tubes and drains: peripheral HEENT: normocephalic, atraumatic Neck: non-tender, normal alignment, supple, normal inspection Respiratory/Chest: chest wall non-tender, accessory muscle use, crackles/rales, rhonchi - bilaterally Cardiovascular/Chest: normal peripheral pulses, normal rate, regular rhythm Abdomen: normal bowel sounds, non tender, soft, no organomegaly Extremities: normal range of motion, non-tender Skin Exam: normal pigmentation, warm/dry, cyanotic Neurologic: remedial masseur II-XII grossly normal, no motor/sensory deficits Last 24 Hour Vital Signs Date Time Temp Pulse Resp B/P (MAP) Pulse Ox O2 Delivery O2 Flow Rate FiO2 03/11/20 04:00 Bi-pap 03/11/20 04:00 15.0 35 03/11/20 04:00 80 27 102/72 (82) 95 03/11/20 03:30 77 33 98 70 03/11/20 03:15 81 03/11/20 03:00 79 29 141/76 (97) 100 03/11/20 02:00 77 23 111/77 (88) 100 03/11/20 01:00 78 31 127/92 (104) 99 03/11/20 00:00 97.7 81 26 119/69 (86) 100 03/11/20 00:00 15.0 35 03/11/20 00:00 Bi-pap 03/10/20 23:22 81 03/10/20 23:00 81 27 99 70 03/10/20 23:00 83 25 96/77 (83) 67 03/10/20 22:45 77 24 112/80 (91) 78 03/10/20 22:30 87 23 106/82 (90) 03/10/20 22:19 Bi-Pap 03/10/20 22:15 92 30 106/82 (90) 99 03/10/20 22:10 88 03/10/20 22:09 98.5 90 30 109/81 99 Bi-pap 03/10/20 22:02 97.8 87 27 138/80 (99) 85 03/10/20 21:00 97.8 90 33 110/86 99 Bi-pap 13.0 35 03/10/20 19:12 91 40 99 35 03/10/20 19:00 97.5 88 28 129/84 98 Bi-pap 15.0 28 03/10/20 17:30 88 27 152/76 98 Bi-pap 15.0 28 03/10/20 15:30 97.1 95 27 161/71 96 Bi-pap 15.0 28 03/10/20 14:44 92 27 98 28 03/10/20 13:30 98.0 86 22 149/79 95 Bi-pap 15.0 35 03/10/20 11:27 97.6 81 22 136/82 98 Bi-pap 15.0 35 03/10/20 10:45 90 28 99 Bi-Pap 28 95 28 100 03/10/20 09:17 88 22 125/77 100 Bi-pap 15.0 35 Intake and Output 03/10/20 03/11/20 19:00 07:00 Intake Total 275 ml 235 ml Output Total 300 ml Balance 275 ml -65 ml Intake IV Total 275 ml 235 ml Output Urine Total 300 ml # Bowel Movements 3 Laboratory Tests Test 03/10/20 11:40 03/11/20 05:24 Urine Color Yellow Urine Appearance Clear Urine pH 6.5 (4.5-8.0) Urine Specific [place] 1.005 (1.005-1.035) Urine Protein 2+ (NEGATIVE) H Urine Glucose (UA) Negative (NEGATIVE) Urine Ketones 3+ (NEGATIVE) H Urine Blood 4+ (NEGATIVE) H Urine Nitrite Negative (NEGATIVE) Urine Bilirubin Negative (NEGATIVE) Urine Urobilinogen 4 MG/DL (0.0-1.0) H Urine Leukocyte Esterase Negative (NEGATIVE) Urine RBC 2-4 /HPF (0 - 0) H Urine WBC 0 /HPF (0 - 0) Urine Squamous Epithelial Cells None /LPF (NONE/OCC) Urine Bacteria None /HPF (NONE) White Blood Count 3.4 K/UL (4.8-10.8) L Red Blood Count 4.66 M/UL (4.70-6.10) L Hemoglobin 13.5 G/DL (14.2-18.0) L Hematocrit 41.5 % (42.0-52.0) L Mean Corpuscular Volume 89 FL (80-99) Mean Corpuscular Hemoglobin 29.0 PG (27.0-31.0) Mean Corpuscular Hemoglobin Concent 32.6 G/DL (32.0-36.0) Red Cell Distribution Width 12.5 % (11.6-14.8) Platelet Count 186 K/UL (150-450) Mean Platelet Volume 6.6 FL (6.5-10.1) Neutrophils (%) (Auto) % (45.0-75.0) Lymphocytes (%) (Auto) % (20.0-45.0) Monocytes (%) (Auto) % (1.0-10.0) Eosinophils (%) (Auto) % (0.0-3.0) Basophils (%) (Auto) % (0.0-2.0) Differential Total Cells Counted 100 Neutrophils % (Manual) 57 % (45-75) Lymphocytes % (Manual) 20 % (20-45) Monocytes % (Manual) 23 % (1-10) H Eosinophils % (Manual) 0 % (0-3) Basophils % (Manual) 0 % (0-2) Band Neutrophils 0 % (0-8) Platelet Estimate Adequate Platelet Morphology Normal Erythrocyte Sedimentation Rate 79 MM/HR (0-20) H Fibrinogen 680 mg/dL (200-400) H D-Dimer Pending Sodium Level 141 MMOL/L (136-145) Potassium Level 4.2 MMOL/L (3.5-5.1) Chloride Level 100 MMOL/L (98-107) Carbon Dioxide Level 33 MMOL/L (21-32) H Anion Gap 8 mmol/L (5-15) Blood Urea Nitrogen 19 mg/dL (7-18) H Creatinine 0.8 MG/DL (0.55-1.30) Estimat Glomerular Filtration Rate > 60 mL/min (>60) Glucose Level 94 MG/DL (74-106) Calcium Level 9.3 MG/DL (8.5-10.1) Phosphorus Level 3.4 MG/DL (2.5-4.9) Magnesium Level 2.2 MG/DL (1.8-2.4) Ferritin 425 NG/ML (8-388) H Total Bilirubin 0.4 MG/DL (0.2-1.0) Direct Bilirubin 0.1 MG/DL (0.0-0.3) Aspartate Amino Transf (AST/SGOT) 74 U/L (15-37) H Alanine Aminotransferase (ALT/SGPT) 43 U/L (12-78) Alkaline Phosphatase 68 U/L (46-116) Lactate Dehydrogenase 466 U/L (81-234) H C-Reactive Protein, Quantitative 7.7 mg/dL (0.00-0.90) H Total Protein 6.8 G/DL (6.4-8.2) Albumin 3.2 G/DL (3.4-5.0) L Globulin 3.6 g/dL Albumin/Globulin Ratio 0.9 (1.0-2.7) L Height (Feet): 5 Height (Inches): 10.00 Weight (Pounds): 143 Medications Current Medications Medications (Trade) Dose Ordered Sig/Armand Route PRN Reason Start Time Stop Time Status Last Admin Dose Admin Acetaminophen (Tylenol) 650 mg Q4H PRN ORAL FEVER 03/10/20 07:30 04/09/20 07:29 Albuterol/ Ipratropium (Albuterol/ Ipratropium) 3 ml EVERY 4 HOURS PRN HHN Shortness of Breath 03/10/20 07:30 03/15/20 07:29 03/10/20 08:46 Azithromycin 250 mg/Dextrose 275 ml @ 275 mls/hr Q24HRS IV 03/11/20 09:00 03/16/20 08:59 Ceftriaxone Sodium 1 gm/ Dextrose 55 ml @ 110 mls/hr Q24H IVPB 03/11/20 05:00 03/18/20 04:59 03/11/20 05:43 Dexamethasone (Decadron) 6 mg DAILY ORAL 03/11/20 09:00 03/20/20 09:01 Dextrose (Dextrose 50%) 25 ml Q30M PRN IV Hypoglycemia 03/10/20 07:30 06/08/20 07:29 Dextrose (Dextrose 50%) 50 ml Q30M PRN IV Hypoglycemia 03/10/20 07:30 06/08/20 07:29 Gabapentin (Neurontin) 300 mg THREE TIMES A DAY ORAL 03/10/20 09:00 04/09/20 08:59 Heparin Sodium (Porcine) (Heparin 5000 units/ml) 5,000 units EVERY 12 HOURS SUBQ 03/10/20 21:00 04/24/20 20:59 03/10/20 21:08 Ondansetron HCl (Zofran) 4 mg Q6H PRN IVP Nausea & Vomiting 03/10/20 07:30 04/09/20 07:29 Polyethylene Glycol (Miralax) 17 gm DAILYPRN PRN ORAL Constipation 03/10/20 07:30 04/09/20 07:29 Promethazine HCl/ Codeine (Phenergan with Codeine) 5 ml EVERY 6 HOURS PRN ORAL cough 03/10/20 07:30 04/09/20 07:29 Remdesivir 100 mg/ Sodium Chloride 250 ml @ 250 mls/hr Q24H IV 03/11/20 22:00 03/14/20 22:59 Assessment/Plan Assessment/Plan: ASSESSMENT: COVID 19 PNA Respiratory Failure Pancytopenia Hypertension COPD TIA/CVA Seizures PLAN: Continue pulmonary toilet/Bipap Serial CXR Remdesivir per ID Echocardiogram to evaluate LV function Hold blood pressure medications Lalo Lindsey MD Mar 11, 2020 09:12
[2020-03-11] MEDS: Heparin 5000 units/ml inj SUBQ SCH ×2 (09:15→21:50)
[2020-03-11] MEDS ORDERED: ACETAMINOPHEN325 M1 ORAL (14:16)
[2020-03-11] MEDS ORDERED: MULTIVITAMINS1 EA13 ORAL (15:03)
[2020-03-11] MEDS ORDERED: AZITHROMYCIN500 M1 IVPB (15:03)
[2020-03-11] MEDS ORDERED: LIDODERM700 M1 TOPIC (15:03)
[2020-03-11] MEDS ORDERED: ARTIFICIAL TEAR15 ML BOTH EYES (15:03)
[2020-03-11] MEDS ORDERED: DUONEB 0.5-3(2.53 ML HHN (15:03)
[2020-03-11] MEDS ORDERED: PERIDEX15 ML MM (15:04)
[2020-03-11] MEDS ORDERED: ACETAMINOPHEN-1 EAC1 ORAL (15:04)
[2020-03-11] MEDS ORDERED: NORCO 10-325 T1 EACH ORAL (15:04)
[2020-03-11] MEDS ORDERED: NARCAN4 MG NS (15:04)
--- NOTE | 2020-03-11 15:36 | Diagnostic Imaging Report ---
Indication: Dyspnea Technique: One view of the chest Comparison: 03/10/2020 Findings: Lungs are hyperinflated. Bilateral costophrenic angle blunting is likely related to such, although small effusions are also possible. Right upper lobe infiltrate and more equivocal hazy left upper lobe parenchymal disease appear slightly increased Impression: Suspect slight worsening of bilateral upper lobe right greater than left infiltrates, over one day
--- NOTE | 2020-03-11 17:33 | Infectious Diseases Prog Note ---
Assessment/Plan Assessment: COVID19 pneumonia Acute hypoxic/hypercapnic resp failure- sp VM> bipap -03/11 CXR: Suspect slight worsening of bilateral upper lobe right greater than left infiltrates, over one day -03/10 CXR: Possible right upper lobe infiltrate. COPD changes. Bilateral costophrenic angle blunting. Likely related to the hyperinflation but small effusions also possible. rapid COVID PCR + Afebrile Pancytopenia -u/a neg Mild AST elevation HTN COPD CVA/TIA PA resident ([facility]) Plan: -Continue Ceftriaxone and Azithromycin #2/ -Decadron #2/ -Continue Remdesivir #2/- explained risks and benefits; patient agreed. -f/u cx -Monitor CBC/CMP, temperatures -COVID19 isolation Thank you for this consultation. Will continue to follow along with you. Discussed with RN. Subjective Allergies: Coded Allergies: PENICILLINS (Verified Allergy, Unknown, 03/10/20) PHENYTOIN (Verified Allergy, Unknown, 03/10/20) Objective Last 24 Hour Vital Signs Date Time Temp Pulse Resp B/P (MAP) Pulse Ox O2 Delivery O2 Flow Rate FiO2 03/11/20 16:00 98.0 96 24 138/97 (111) 98 03/11/20 16:00 Bi-pap 03/11/20 16:00 96 03/11/20 16:00 15.0 35 03/11/20 14:45 100 41 98 50 03/11/20 12:00 85 36 137/96 (110) 98 03/11/20 12:00 100 03/11/20 12:00 Bi-pap 03/11/20 12:00 15.0 35 03/11/20 11:00 92 38 99 60 03/11/20 08:00 15.0 35 03/11/20 08:00 97.6 85 26 113/76 (88) 95 03/11/20 08:00 Bi-pap 03/11/20 08:00 88 03/11/20 06:45 83 44 100 70 03/11/20 04:00 Bi-pap 03/11/20 04:00 15.0 35 03/11/20 04:00 80 27 102/72 (82) 95 03/11/20 03:30 77 33 98 70 03/11/20 03:15 81 03/11/20 03:00 79 29 141/76 (97) 100 03/11/20 02:00 77 23 111/77 (88) 100 03/11/20 01:00 78 31 127/92 (104) 99 03/11/20 00:00 97.7 81 26 119/69 (86) 100 03/11/20 00:00 15.0 35 03/11/20 00:00 Bi-pap 03/10/20 23:22 81 03/10/20 23:00 81 27 99 70 03/10/20 23:00 83 25 96/77 (83) 67 03/10/20 22:45 77 24 112/80 (91) 78 03/10/20 22:30 87 23 106/82 (90) 03/10/20 22:19 Bi-Pap 03/10/20 22:15 92 30 106/82 (90) 99 03/10/20 22:10 88 03/10/20 22:09 98.5 90 30 109/81 99 Bi-pap 03/10/20 22:02 97.8 87 27 138/80 (99) 85 03/10/20 21:00 97.8 90 33 110/86 99 Bi-pap 13.0 35 03/10/20 19:12 91 40 99 35 03/10/20 19:00 97.5 88 28 129/84 98 Bi-pap 15.0 28 03/10/20 17:30 88 27 152/76 98 Bi-pap 15.0 28 Height (Feet): 5 Height (Inches): 10.00 Weight (Pounds): 143 General Appearance: WD/WN Lines, tubes and drains: peripheral HEENT: normocephalic, atraumatic Neck: non-tender, normal alignment Respiratory/Chest: chest wall non-tender, lungs clear Cardiovascular/Chest: normal peripheral pulses, normal rate Abdomen: normal bowel sounds, non tender Extremities: normal range of motion Skin Exam: normal pigmentation Microbiology Date/Time Source Procedure Growth Status 03/10/20 06:10 Rectum Received 03/10/20 05:20 Nasopharynx SARS-CoV-2 RdRp Gene Assay - Final Complete Laboratory Tests Test 03/11/20 05:24 White Blood Count 3.4 K/UL (4.8-10.8) L Red Blood Count 4.66 M/UL (4.70-6.10) L Hemoglobin 13.5 G/DL (14.2-18.0) L Hematocrit 41.5 % (42.0-52.0) L Mean Corpuscular Volume 89 FL (80-99) Mean Corpuscular Hemoglobin 29.0 PG (27.0-31.0) Mean Corpuscular Hemoglobin Concent 32.6 G/DL (32.0-36.0) Red Cell Distribution Width 12.5 % (11.6-14.8) Platelet Count 186 K/UL (150-450) Mean Platelet Volume 6.6 FL (6.5-10.1) Neutrophils (%) (Auto) % (45.0-75.0) Lymphocytes (%) (Auto) % (20.0-45.0) Monocytes (%) (Auto) % (1.0-10.0) Eosinophils (%) (Auto) % (0.0-3.0) Basophils (%) (Auto) % (0.0-2.0) Differential Total Cells Counted 100 Neutrophils % (Manual) 57 % (45-75) Lymphocytes % (Manual) 20 % (20-45) Monocytes % (Manual) 23 % (1-10) H Eosinophils % (Manual) 0 % (0-3) Basophils % (Manual) 0 % (0-2) Band Neutrophils 0 % (0-8) Platelet Estimate Adequate Platelet Morphology Normal Erythrocyte Sedimentation Rate 79 MM/HR (0-20) H Fibrinogen 680 mg/dL (200-400) H D-Dimer 0.19 mg/L FEU (0.00-0.49) Sodium Level 141 MMOL/L (136-145) Potassium Level 4.2 MMOL/L (3.5-5.1) Chloride Level 100 MMOL/L (98-107) Carbon Dioxide Level 33 MMOL/L (21-32) H Anion Gap 8 mmol/L (5-15) Blood Urea Nitrogen 19 mg/dL (7-18) H Creatinine 0.8 MG/DL (0.55-1.30) Estimat Glomerular Filtration Rate > 60 mL/min (>60) Glucose Level 94 MG/DL (74-106) Calcium Level 9.3 MG/DL (8.5-10.1) Phosphorus Level 3.4 MG/DL (2.5-4.9) Magnesium Level 2.2 MG/DL (1.8-2.4) Ferritin 425 NG/ML (8-388) H Total Bilirubin 0.4 MG/DL (0.2-1.0) Direct Bilirubin 0.1 MG/DL (0.0-0.3) Aspartate Amino Transf (AST/SGOT) 74 U/L (15-37) H Alanine Aminotransferase (ALT/SGPT) 43 U/L (12-78) Alkaline Phosphatase 68 U/L (46-116) Lactate Dehydrogenase 466 U/L (81-234) H C-Reactive Protein, Quantitative 7.7 mg/dL (0.00-0.90) H Total Protein 6.8 G/DL (6.4-8.2) Albumin 3.2 G/DL (3.4-5.0) L Globulin 3.6 g/dL Albumin/Globulin Ratio 0.9 (1.0-2.7) L Current Medications Medications (Trade) Dose Ordered Sig/Armand Route PRN Reason Start Time Stop Time Status Last Admin Dose Admin Acetaminophen (Tylenol) 650 mg Q4H PRN ORAL FEVER 03/10/20 07:30 04/09/20 07:29 Albuterol/ Ipratropium (Albuterol/ Ipratropium) 3 ml EVERY 4 HOURS PRN HHN Shortness of Breath 03/10/20 07:30 03/15/20 07:29 03/10/20 08:46 Azithromycin 250 mg/Dextrose 275 ml @ 275 mls/hr Q24HRS IV 03/11/20 09:00 03/16/20 08:59 03/11/20 09:11 Ceftriaxone Sodium 1 gm/ Dextrose 55 ml @ 110 mls/hr Q24H IVPB 03/11/20 05:00 03/18/20 04:59 03/11/20 05:43 Dexamethasone (Decadron) 6 mg DAILY ORAL 03/11/20 09:00 03/20/20 09:01 Dextrose (Dextrose 50%) 25 ml Q30M PRN IV Hypoglycemia 03/10/20 07:30 06/08/20 07:29 Dextrose (Dextrose 50%) 50 ml Q30M PRN IV Hypoglycemia 03/10/20 07:30 06/08/20 07:29 Gabapentin (Neurontin) 300 mg THREE TIMES A DAY ORAL 03/10/20 09:00 04/09/20 08:59 Heparin Sodium (Porcine) (Heparin 5000 units/ml) 5,000 units EVERY 12 HOURS SUBQ 03/10/20 21:00 04/24/20 20:59 03/11/20 09:15 Lorazepam (Ativan 2mg/ml 1ml) 1 mg Q4H PRN IV For Anxiety 03/11/20 16:30 03/18/20 16:29 Ondansetron HCl (Zofran) 4 mg Q6H PRN IVP Nausea & Vomiting 03/10/20 07:30 04/09/20 07:29 03/11/20 12:42 Polyethylene Glycol (Miralax) 17 gm DAILYPRN PRN ORAL Constipation 03/10/20 07:30 04/09/20 07:29 Remdesivir 100 mg/ Sodium Chloride 250 ml @ 250 mls/hr Q24H IV 03/11/20 22:00 03/14/20 22:59 Laurence Lackey M.D. Mar 11, 2020 17:33
--- NOTE | 2020-03-11 18:23 | History & Physical ---
History and Physical History & Physicial Dictated for Int Med-Dr Saul no. [id number]. ICU Pablo Hickman MD Mar 11, 2020 18:23
--- NOTE | 2020-03-11 19:00 | History and Physical Report ---
DATE OF ADMISSION: 03/10/2020 CHIEF COMPLAINT: The patient is an 79-year-old male who presents with a chief complaint of shortness of breath. HISTORY OF PRESENT ILLNESS: The patient is a resident of [facility]. According to staff at [facility], the patient tested COVID-19 positive on March 05, 2020. The patient was started on azithromycin. The patient began to experience increasing shortness of breath on March 10, 2020. The patient was transferred to [facility] for evaluation. The patient was found to have oxygen saturation of 90% on room air. The patient was admitted with COVID-19 positive, pneumonia, and hypoxia. REVIEW OF SYSTEMS: Unable to assess secondary to the patient's mental status. PAST MEDICAL HISTORY: Significant for: 1. Hypertension. 2. Congestive heart failure. 3. Chronic obstructive pulmonary disease. 4. History of prostate cancer. 5. Anemia. 6. Cerebrovascular disease, status post cerebrovascular accident. 7. Peripheral vascular disease. 8. Gastroesophageal reflux disease. 9. Major depression. 10. Seizure disorder. 11. COVID-19 positive, diagnosed on March 05, 2020. PAST SURGICAL HISTORY: The patient denies. CURRENT MEDICATIONS: 1. Tylenol 650 mg p.o. q.4h. p.r.n. 2. Apixaban 2.5 mg p.o. twice daily. 3. Azithromycin 500 mg p.o. daily. 4. Baclofen 5 mg p.o. q.12h. p.r.n. 5. Docusate 100 mg p.o. daily. 6. Famotidine 40 mg p.o. at bedtime. 7. Gabapentin 300 mg p.o. q.8h. 8. DuoNeb nebulized q.6h. p.r.n. 9. Melatonin 3 mg p.o. at bedtime. 10. Multivitamin 1 tablet p.o. daily. 11. Naloxone p.r.n. 12. [place] 10/325 mg 1 tablet p.o. q.4h. p.r.n. 13. Prednisone 20 mg p.o. daily. 14. Flomax 0.4 mg p.o. daily. 15. Tylenol with codeine 1 tablet p.o. q.6h. p.r.n. ALLERGIES: Penicillin and phenytoin. SOCIAL HISTORY: The patient is a . The patient denies tobacco or alcohol use. PHYSICAL EXAMINATION: VITAL SIGNS: Temperature 97.0, respirations 22, pulse 88, blood pressure 143/95, oxygen saturation 99% on 100% nonrebreather. GENERAL: The patient is a well-developed, well-nourished male, thin appearing, in no apparent distress. The patient is currently on BiPAP. HEENT: Eyes, pupils equal and responsive to light and accommodation. Extraocular movements are intact. NECK: Supple without lymphadenopathy. CHEST: Diffuse crackles on bilateral bases with expiratory wheezes, otherwise without rhonchi. CARDIOVASCULAR: Tachycardic, regular rhythm. S1-S2 are normal without murmurs, rubs, or gallops. ABDOMEN: Soft, nontender, and nondistended. Positive bowel sounds. No evidence of hepatosplenomegaly. Currently no rebound or guarding noted. EXTREMITIES: Negative for clubbing, cyanosis, or edema. RECTAL/GENITAL: Not performed. NEUROLOGIC: Cranial nerves II through XII are grossly intact without focal deficits. Motor strength is 5/5 bilaterally. A chest x-ray was reported as bilateral upper lobe infiltrates. LABORATORY STUDIES: WBC 4.1, hemoglobin 12.2, hematocrit 37.5, platelets 140,000. Sodium 139, potassium 4.1, chloride 100, CO2 32, BUN 19, creatinine 0.9, glucose 120. Troponin is 0.011. Total CK 274. LDH elevated at 364. Urinalysis showed 2+ protein, 3+ ketones, 4+ blood, 2-4 rbc's. ASSESSMENT: This is an 79-year-old male. 1. Respiratory failure. 2. COVID-19 positive. 3. Bilateral pneumonia. 4. Hypertension. 5. Congestive heart failure. 6. Chronic obstructive pulmonary disease. 7. History of prostate cancer. 8. Anemia. 9. Cerebrovascular disease, status post cerebrovascular accident. 10. Peripheral vascular disease. 11. Gastroesophageal reflux disease. 12. Major depression. 13. Seizure disorder. TREATMENT: 1. COVID-19 positive/pneumonia. An infectious disease consultation has been obtained with Dr. Lackey. A pulmonary consultation has been obtained with Dr. Sayra Fay. The patient is currently receiving Decadron. The patient has been started on ceftriaxone intravenously. The patient has also been started on remdesivir. We will follow recommendation of Pulmonary and Infectious Disease. 2. Congestive heart failure. Cardiology consultation has been obtained with . Follow recommendations of . 3. History of prostate cancer. 4. Chronic obstructive pulmonary disease. As above, a pulmonary consultation has been obtained with Dr. Sayra Fay. 5. Anemia. 6. Cerebrovascular disease, status post cerebrovascular accident. Continue apixaban as above. 7. Peripheral vascular disease. 8. Gastroesophageal reflux disease. The patient has been placed on Protonix. 9. Major depression. 10. Seizure disorder. Pablo Hickman M.D. DR: LOVELY JOB#: [id number] CC:
[2020-03-11] MEDS: LORazepam Inj 2mg/ml 1ml IV PRN (21:49)
[2020-03-11] MEDS: Maintenance Dose:Remdesivir 100mg/NS 230ml x 4 Doses IV SCH ×2 (21:54)
[2020-03-12] VITALS (12 sets, daily range): BP systolic 94–135; BP diastolic 57–89
[2020-03-12 05:40] LABS: HEMATOCRIT 40.4 % (42.0-52.0); MEAN CORPUSCULAR VOLUME 89 FL (80-99); PLATELET COUNT 206 K/UL (150-450); RED BLOOD COUNT 4.53 M/UL (4.70-6.10); RED CELL DISTRIBUTION WIDTH 12.9 % (11.6-14.8); WHITE BLOOD COUNT 2.9 K/UL (4.8-10.8)
[2020-03-12 06:01] LABS: ALANINE AMINOTRANSFERASE 46 U/L (12-78); ALBUMIN 2.9 G/DL (3.4-5.0); ALBUMIN/GLOBULIN RATIO 0.7 (1.0-2.7); ALKALINE PHOSPHATASE 65 U/L (46-116); ANION GAP 1 mmol/L (5-15); ASPARTATE AMINO TRANSFERASE 78 U/L (15-37); BILIRUBIN,DIRECT 0.1 MG/DL (0.0-0.3); BILIRUBIN,TOTAL 0.4 MG/DL (0.2-1.0); BLOOD UREA NITROGEN 23 mg/dL (7-18); CALCIUM 8.8 MG/DL (8.5-10.1); CARBON DIOXIDE 37 MMOL/L (21-32); CHLORIDE 102 MMOL/L (98-107); CREATININE 0.7 MG/DL (0.55-1.30); POTASSIUM 4.2 MMOL/L (3.5-5.1); SODIUM 140 MMOL/L (136-145)
[2020-03-12 06:02] LABS: PHOSPHORUS 3.2 MG/DL (2.5-4.9)
[2020-03-12] MEDS: cefTRIAXone 1 GM in D5W 55 ML IVPB SCH (06:04)
[2020-03-12] MEDS: Heparin 5000 units/ml inj SUBQ SCH ×2 (09:47→21:16)
--- NOTE | 2020-03-12 10:10 | Infectious Diseases Prog Note ---
Assessment/Plan Assessment: COVID19 pneumonia Acute hypoxic/hypercapnic resp failure- sp VM> bipap -03/11 CXR: Suspect slight worsening of bilateral upper lobe right greater than left infiltrates, over one day -03/10 CXR: Possible right upper lobe infiltrate. COPD changes. Bilateral costophrenic angle blunting. Likely related to the hyperinflation but small effusions also possible. rapid COVID PCR + Afebrile Pancytopenia -u/a neg Mild AST elevation HTN COPD CVA/[place]IA [place] ([facility]) Plan: -Continue Ceftriaxone and Azithromycin #/ -Decadron #/ -Continue Remdesivir #/- explained risks and benefits; patient agreed. -f/u cx -Monitor CBC/CMP, temperatures -COVID19 isolation Thank you for this consultation. Will continue to follow along with you. Discussed with RN. Subjective Allergies: Coded Allergies: PENICILLINS (Verified Allergy, Unknown, 03/10/20) PHENYTOIN (Verified Allergy, Unknown, 03/10/20) Afebrile Mild Leukopenia On BiPAP 50% O2 Objective Last 24 Hour Vital Signs Date Time Temp Pulse Resp B/P (MAP) Pulse Ox O2 Delivery O2 Flow Rate FiO2 03/12/20 08:00 Bi-pap 03/12/20 08:00 15.0 50 03/12/20 08:00 97.8 81 16 109/88 (95) 100 03/12/20 06:44 85 29 100 50 03/12/20 06:33 98.7 89 20 115/75 (88) 99 03/12/20 05:00 84 30 110/78 (89) 99 03/12/20 04:00 15.0 50 03/12/20 04:00 82 03/12/20 04:00 Bi-pap 03/12/20 04:00 98.8 86 32 111/79 (90) 99 03/12/20 03:48 89 31 109/75 (86) 99 03/12/20 03:30 82 33 100 50 03/12/20 03:00 83 28 94/73 (80) 100 03/12/20 02:00 85 27 101/76 (84) 100 03/12/20 01:00 88 32 106/79 (88) 99 03/12/20 00:00 15.0 50 03/12/20 00:00 Bi-pap 03/12/20 00:00 86 03/12/20 00:00 98.8 89 29 123/76 (92) 99 03/11/20 23:30 87 29 98 50 03/11/20 23:00 91 29 102/68 (79) 100 03/11/20 22:19 93 30 115/84 98 03/11/20 22:00 95 18 118/72 (87) 100 03/11/20 21:49 93 30 115/84 98 03/11/20 21:38 90 33 122/88 (99) 99 03/11/20 21:00 91 31 97/70 (79) 98 03/11/20 20:00 91 03/11/20 20:00 93 30 115/84 (94) 98 03/11/20 20:00 Bi-pap 03/11/20 20:00 15.0 35 03/11/20 19:30 92 39 98 50 03/11/20 19:00 98.4 93 36 112/72 (85) 98 03/11/20 16:00 98.0 96 24 138/97 (111) 98 03/11/20 16:00 Bi-pap 03/11/20 16:00 96 03/11/20 16:00 15.0 35 03/11/20 14:45 100 41 98 50 03/11/20 12:00 85 36 137/96 (110) 98 03/11/20 12:00 100 03/11/20 12:00 Bi-pap 03/11/20 12:00 15.0 35 03/11/20 11:00 92 38 99 60 Height (Feet): 5 Height (Inches): 10.00 Weight (Pounds): 143 GENERAL: BIPAP awake and talking HEENT: NCAT, MMM, EOMI LUNGS: Equal rise and fall of chest B/L ABDOMEN: Soft, nondistended EXTREMITIES: No cyanosis, clubbing, or edema. Microbiology Date/Time Source Procedure Growth Status 03/10/20 06:10 Rectum VRE Culture - Final NO VANCOMYCIN RESISTANT ENTEROCOCCUS ... Complete 03/10/20 06:10 Rectum - Final NO CARBAPENEM-RESISTANT ENTEROBACTERI... Complete 03/10/20 06:10 Nasal Nares MRSA Culture - Final NO METHICILLIN RESISTANT STAPH AUREUS... Complete 03/10/20 05:50 Blood Blood Culture - Preliminary NO GROWTH AFTER 24 HOURS Resulted 03/10/20 05:35 Blood Blood Culture - Preliminary NO GROWTH AFTER 24 HOURS Resulted 03/10/20 05:20 Nasopharynx SARS-CoV-2 RdRp Gene Assay - Final Complete Laboratory Tests Test 03/12/20 05:00 White Blood Count 2.9 K/UL (4.8-10.8) L Red Blood Count 4.53 M/UL (4.70-6.10) L Hemoglobin 13.0 G/DL (14.2-18.0) L Hematocrit 40.4 % (42.0-52.0) L Mean Corpuscular Volume 89 FL (80-99) Mean Corpuscular Hemoglobin 28.7 PG (27.0-31.0) Mean Corpuscular Hemoglobin Concent 32.1 G/DL (32.0-36.0) Red Cell Distribution Width 12.9 % (11.6-14.8) Platelet Count 206 K/UL (150-450) Mean Platelet Volume 5.7 FL (6.5-10.1) L Neutrophils (%) (Auto) % (45.0-75.0) Lymphocytes (%) (Auto) % (20.0-45.0) Monocytes (%) (Auto) % (1.0-10.0) Eosinophils (%) (Auto) % (0.0-3.0) Basophils (%) (Auto) % (0.0-2.0) Differential Total Cells Counted 100 Neutrophils % (Manual) 77 % (45-75) H Lymphocytes % (Manual) 14 % (20-45) L Monocytes % (Manual) 9 % (1-10) Eosinophils % (Manual) 0 % (0-3) Basophils % (Manual) 0 % (0-2) Band Neutrophils 0 % (0-8) Platelet Estimate Adequate Platelet Morphology Normal Red Blood Cell Morphology Normal Erythrocyte Sedimentation Rate 61 MM/HR (0-20) H Sodium Level 140 MMOL/L (136-145) Potassium Level 4.2 MMOL/L (3.5-5.1) Chloride Level 102 MMOL/L (98-107) Carbon Dioxide Level 37 MMOL/L (21-32) H Anion Gap 1 mmol/L (5-15) L Blood Urea Nitrogen 23 mg/dL (7-18) H Creatinine 0.7 MG/DL (0.55-1.30) Estimat Glomerular Filtration Rate > 60 mL/min (>60) Glucose Level 112 MG/DL (74-106) H Calcium Level 8.8 MG/DL (8.5-10.1) Phosphorus Level 3.2 MG/DL (2.5-4.9) Magnesium Level 2.2 MG/DL (1.8-2.4) Total Bilirubin 0.4 MG/DL (0.2-1.0) Direct Bilirubin 0.1 MG/DL (0.0-0.3) Aspartate Amino Transf (AST/SGOT) 78 U/L (15-37) H Alanine Aminotransferase (ALT/SGPT) 46 U/L (12-78) Alkaline Phosphatase 65 U/L (46-116) C-Reactive Protein, Quantitative 6.3 mg/dL (0.00-0.90) H Total Protein 7.3 G/DL (6.4-8.2) Albumin 2.9 G/DL (3.4-5.0) L Globulin 4.4 g/dL Albumin/Globulin Ratio 0.7 (1.0-2.7) L Current Medications Medications (Trade) Dose Ordered Sig/Armand Route PRN Reason Start Time Stop Time Status Last Admin Dose Admin Acetaminophen (Tylenol) 650 mg Q4H PRN ORAL FEVER 03/10/20 07:30 04/09/20 07:29 Albuterol/ Ipratropium (Combivent Respimat) 1 puff Q4H PRN INH Shortness of Breath 03/11/20 20:00 04/10/20 19:59 Azithromycin 250 mg/Dextrose 275 ml @ 275 mls/hr Q24HRS IV 03/11/20 09:00 03/16/20 08:59 03/11/20 09:11 Ceftriaxone Sodium 1 gm/ Dextrose 55 ml @ 110 mls/hr Q24H IVPB 03/11/20 05:00 03/18/20 04:59 03/12/20 06:04 Dexamethasone Sodium Phosphate (Decadron 4mg/ml vial) 6 mg DAILY IVP 03/11/20 17:30 03/20/20 18:00 03/12/20 09:45 Dextrose (Dextrose 50%) 25 ml Q30M PRN IV Hypoglycemia 03/10/20 07:30 06/08/20 07:29 Dextrose (Dextrose 50%) 50 ml Q30M PRN IV Hypoglycemia 03/10/20 07:30 06/08/20 07:29 Gabapentin (Neurontin) 300 mg THREE TIMES A DAY ORAL 03/10/20 09:00 04/09/20 08:59 03/12/20 09:44 Heparin Sodium (Porcine) (Heparin 5000 units/ml) 5,000 units EVERY 12 HOURS SUBQ 03/10/20 21:00 04/24/20 20:59 03/12/20 09:47 Lorazepam (Ativan 2mg/ml 1ml) 1 mg Q4H PRN IV For Anxiety 03/11/20 16:30 03/18/20 16:29 03/11/20 21:49 Ondansetron HCl (Zofran) 4 mg Q6H PRN IVP Nausea & Vomiting 03/10/20 07:30 04/09/20 07:29 03/11/20 12:42 Polyethylene Glycol (Miralax) 17 gm DAILYPRN PRN ORAL Constipation 03/10/20 07:30 04/09/20 07:29 Remdesivir 100 mg/ Sodium Chloride 250 ml @ 250 mls/hr Q24H IV 03/11/20 22:00 03/14/20 22:59 03/11/20 21:54 Lalo Hewitt MD Mar 12, 2020 10:10
--- NOTE | 2020-03-12 10:34 | Pulmonolgy Critical Care Note ---
Critical Care - Asmt/Plan Problems: (1) Respiratory failure with hypoxia (2) Pneumonia due to COVID-19 virus (3) COPD (chronic obstructive pulmonary disease) (4) Seizure disorder (5) Hx of prostatic malignancy (6) Major depression (7) HTN (hypertension) (8) History of CVA (cerebrovascular accident) Respiratory: monitor respiratory rate, adjust FIO2 Cardiac: continue pressors, stop pressors Renal: F/U I&O, keep IV fluid, check electrolytes Infectious Disease: check cultures Gastrointestinal: continue feedings/current rate Endocrine: monitor blood sugar Hematologic: monitor H/H, transfuse if hgb<8.5 Neurologic: PRN Ativan, keep patient comfortable Affect: PRN ativan Prophylaxis: Protonix Time Spent (Minutes): 40 Notes Reviewed: cardio, renal Discussed with: nurses, consultants, 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0 50 03/12/20 00:00 Bi-pap 03/12/20 00:00 86 03/12/20 00:00 98.8 89 29 123/76 (92) 99 03/11/20 23:30 87 29 98 50 03/11/20 23:00 91 29 102/68 (79) 100 03/11/20 22:19 93 30 115/84 98 03/11/20 22:00 95 18 118/72 (87) 100 03/11/20 21:49 93 30 115/84 98 03/11/20 21:38 90 33 122/88 (99) 99 03/11/20 21:00 91 31 97/70 (79) 98 03/11/20 20:00 91 03/11/20 20:00 93 30 115/84 (94) 98 03/11/20 20:00 Bi-pap 03/11/20 20:00 15.0 35 03/11/20 19:30 92 39 98 50 03/11/20 19:00 98.4 93 36 112/72 (85) 98 03/11/20 16:00 98.0 96 24 138/97 (111) 98 03/11/20 16:00 Bi-pap 03/11/20 16:00 96 03/11/20 16:00 15.0 35 03/11/20 14:45 100 41 98 50 03/11/20 12:00 85 36 137/96 (110) 98 03/11/20 12:00 100 03/11/20 12:00 Bi-pap 03/11/20 12:00 15.0 35 03/11/20 11:00 92 38 99 60 Status: awake Condition: critical HEENT: normocephalic Neck: full ROM Lungs: chest wall tender Heart: HR/BP stable Abdomen: soft, feeding tube Extremities: edema Micro: Microbiology Date/Time Source Procedure Growth Status 03/10/20 06:10 Rectum VRE Culture - Final NO VANCOMYCIN RESISTANT ENTEROCOCCUS ... Complete 03/10/20 06:10 Rectum - Final NO CARBAPENEM-RESISTANT ENTEROBACTERI... Complete 03/10/20 06:10 Nasal Nares MRSA Culture - Final NO METHICILLIN RESISTANT STAPH AUREUS... Complete 03/10/20 05:50 Blood Blood Culture - Preliminary NO GROWTH AFTER 24 HOURS Resulted 03/10/20 05:35 Blood Blood Culture - Preliminary NO GROWTH AFTER 24 HOURS Resulted 03/10/20 05:20 Nasopharynx SARS-CoV-2 RdRp Gene Assay - Final Complete Critical Care - Subjective ROS Limited/Unobtainable: Yes Condition: critical EKG Rhythm: Sinus Rhythm FI02: 50 Vent Support Breath Rate: 14 Vent Support Mode: BiLevel Sputum Amount: None I&O: Intake and Output 03/11/20 03/12/20 19:00 07:00 Intake Total 250 ml Output Total 400 ml 600 ml Balance -400 ml -350 ml Intake IV Total 250 ml Output Urine Total 400 ml 600 ml # Bowel Movements 3 3 CXR: RUL infiltrate the same Labs: Laboratory Tests Test 03/12/20 05:00 White Blood Count 2.9 K/UL (4.8-10.8) L Red Blood Count 4.53 M/UL (4.70-6.10) L Hemoglobin 13.0 G/DL (14.2-18.0) L Hematocrit 40.4 % (42.0-52.0) L Mean Corpuscular Volume 89 FL (80-99) Mean Corpuscular Hemoglobin 28.7 PG (27.0-31.0) Mean Corpuscular Hemoglobin Concent 32.1 G/DL (32.0-36.0) Red Cell Distribution Width 12.9 % (11.6-14.8) Platelet Count 206 K/UL (150-450) Mean Platelet Volume 5.7 FL (6.5-10.1) L Neutrophils (%) (Auto) % (45.0-75.0) Lymphocytes (%) (Auto) % (20.0-45.0) Monocytes (%) (Auto) % (1.0-10.0) Eosinophils (%) (Auto) % (0.0-3.0) Basophils (%) (Auto) % (0.0-2.0) Differential Total Cells Counted 100 Neutrophils % (Manual) 77 % (45-75) H Lymphocytes % (Manual) 14 % (20-45) L Monocytes % (Manual) 9 % (1-10) Eosinophils % (Manual) 0 % (0-3) Basophils % (Manual) 0 % (0-2) Band Neutrophils 0 % (0-8) Platelet Estimate Adequate Platelet Morphology Normal Red Blood Cell Morphology Normal Erythrocyte Sedimentation Rate 61 MM/HR (0-20) H Sodium Level 140 MMOL/L (136-145) Potassium Level 4.2 MMOL/L (3.5-5.1) Chloride Level 102 MMOL/L (98-107) Carbon Dioxide Level 37 MMOL/L (21-32) H Anion Gap 1 mmol/L (5-15) L Blood Urea Nitrogen 23 mg/dL (7-18) H Creatinine 0.7 MG/DL (0.55-1.30) Estimat Glomerular Filtration Rate > 60 mL/min (>60) Glucose Level 112 MG/DL (74-106) H Calcium Level 8.8 MG/DL (8.5-10.1) Phosphorus Level 3.2 MG/DL (2.5-4.9) Magnesium Level 2.2 MG/DL (1.8-2.4) Total Bilirubin 0.4 MG/DL (0.2-1.0) Direct Bilirubin 0.1 MG/DL (0.0-0.3) Aspartate Amino Transf (AST/SGOT) 78 U/L (15-37) H Alanine Aminotransferase (ALT/SGPT) 46 U/L (12-78) Alkaline Phosphatase 65 U/L (46-116) C-Reactive Protein, Quantitative 6.3 mg/dL (0.00-0.90) H Total Protein 7.3 G/DL (6.4-8.2) Albumin 2.9 G/DL (3.4-5.0) L Globulin 4.4 g/dL Albumin/Globulin Ratio 0.7 (1.0-2.7) L Sayra Fay MD Mar 12, 2020 10:33
--- NOTE | 2020-03-12 14:43 | Diagnostic Imaging Report ---
Indication: Dyspnea Technique: One view of the chest Comparison: 03/11/2020 Findings: Again demonstrated is consolidation in the right upper lobe, appearing unchanged. There appears to be improvement of previously demonstrated left upper lobe parenchymal disease. Lungs remain hyperinflated. The right costophrenic angle remains blunted. Impression: Improved now largely resolved left upper lobe parenchymal consolidation. Stable right upper lobe infiltrate
--- NOTE | 2020-03-12 17:24 | Internal Med Progress Note ---
Subjective Date of Service: Mar 12, 2020 Physician Name Pablo Hickman Attending Physician Torres Saul MD Current Medications Medications (Trade) Dose Ordered Sig/Armand Route PRN Reason Start Time Stop Time Status Last Admin Dose Admin Acetaminophen (Tylenol) 650 mg Q4H PRN ORAL FEVER 03/10/20 07:30 04/09/20 07:29 Albuterol/ Ipratropium (Combivent Respimat) 1 puff Q4H PRN INH Shortness of Breath 03/11/20 20:00 04/10/20 19:59 Azithromycin 250 mg/Dextrose 275 ml @ 275 mls/hr Q24HRS IV 03/11/20 09:00 03/16/20 08:59 03/11/20 09:11 Ceftriaxone Sodium 1 gm/ Dextrose 55 ml @ 110 mls/hr Q24H IVPB 03/11/20 05:00 03/18/20 04:59 03/12/20 06:04 Dexamethasone Sodium Phosphate (Decadron 4mg/ml vial) 6 mg DAILY IVP 03/11/20 17:30 03/20/20 18:00 03/12/20 09:45 Dextrose (Dextrose 50%) 25 ml Q30M PRN IV Hypoglycemia 03/10/20 07:30 06/08/20 07:29 Dextrose (Dextrose 50%) 50 ml Q30M PRN IV Hypoglycemia 03/10/20 07:30 06/08/20 07:29 Gabapentin (Neurontin) 300 mg THREE TIMES A DAY ORAL 03/10/20 09:00 04/09/20 08:59 03/12/20 09:44 Heparin Sodium (Porcine) (Heparin 5000 units/ml) 5,000 units EVERY 12 HOURS SUBQ 03/10/20 21:00 04/24/20 20:59 03/12/20 09:47 Lorazepam (Ativan 2mg/ml 1ml) 1 mg Q4H PRN IV For Anxiety 03/11/20 16:30 03/18/20 16:29 03/11/20 21:49 Ondansetron HCl (Zofran) 4 mg Q6H PRN IVP Nausea & Vomiting 03/10/20 07:30 04/09/20 07:29 03/11/20 12:42 Polyethylene Glycol (Miralax) 17 gm DAILYPRN PRN ORAL Constipation 03/10/20 07:30 04/09/20 07:29 Remdesivir 100 mg/ Sodium Chloride 250 ml @ 250 mls/hr Q24H IV 03/11/20 22:00 03/14/20 22:59 03/11/20 21:54 Allergies: Coded Allergies: PENICILLINS (Verified Allergy, Unknown, 03/10/20) PHENYTOIN (Verified Allergy, Unknown, 03/10/20) ROS Limited/Unobtainable: Yes Subjective 79 YO M admitted with shortness of breath. Now COVID 19 pneumonia. Cover for In Med-Dr Saul. Step down unit Objective Last Vital Signs Date Time Temp Pulse Resp B/P (MAP) Pulse Ox O2 Delivery O2 Flow Rate FiO2 03/12/20 16:00 Nasal Cannula 3.0 03/12/20 15:04 83 24 94 03/12/20 08:00 50 03/12/20 08:00 97.8 109/88 (95) Laboratory Tests Test 03/12/20 05:00 03/12/20 13:25 White Blood Count 2.9 K/UL (4.8-10.8) L Red Blood Count 4.53 M/UL (4.70-6.10) L Hemoglobin 13.0 G/DL (14.2-18.0) L Hematocrit 40.4 % (42.0-52.0) L Mean Corpuscular Volume 89 FL (80-99) Mean Corpuscular Hemoglobin 28.7 PG (27.0-31.0) Mean Corpuscular Hemoglobin Concent 32.1 G/DL (32.0-36.0) Red Cell Distribution Width 12.9 % (11.6-14.8) Platelet Count 206 K/UL (150-450) Mean Platelet Volume 5.7 FL (6.5-10.1) L Neutrophils (%) (Auto) % (45.0-75.0) Lymphocytes (%) (Auto) % (20.0-45.0) Monocytes (%) (Auto) % (1.0-10.0) Eosinophils (%) (Auto) % (0.0-3.0) Basophils (%) (Auto) % (0.0-2.0) Differential Total Cells Counted 100 Neutrophils % (Manual) 77 % (45-75) H Lymphocytes % (Manual) 14 % (20-45) L Monocytes % (Manual) 9 % (1-10) Eosinophils % (Manual) 0 % (0-3) Basophils % (Manual) 0 % (0-2) Band Neutrophils 0 % (0-8) Platelet Estimate Adequate Platelet Morphology Normal Red Blood Cell Morphology Normal Erythrocyte Sedimentation Rate 61 MM/HR (0-20) H Sodium Level 140 MMOL/L (136-145) Potassium Level 4.2 MMOL/L (3.5-5.1) Chloride Level 102 MMOL/L (98-107) Carbon Dioxide Level 37 MMOL/L (21-32) H Anion Gap 1 mmol/L (5-15) L Blood Urea Nitrogen 23 mg/dL (7-18) H Creatinine 0.7 MG/DL (0.55-1.30) Estimat Glomerular Filtration Rate > 60 mL/min (>60) Glucose Level 112 MG/DL (74-106) H Calcium Level 8.8 MG/DL (8.5-10.1) Phosphorus Level 3.2 MG/DL (2.5-4.9) Magnesium Level 2.2 MG/DL (1.8-2.4) Total Bilirubin 0.4 MG/DL (0.2-1.0) Direct Bilirubin 0.1 MG/DL (0.0-0.3) Aspartate Amino Transf (AST/SGOT) 78 U/L (15-37) H Alanine Aminotransferase (ALT/SGPT) 46 U/L (12-78) Alkaline Phosphatase 65 U/L (46-116) C-Reactive Protein, Quantitative 6.3 mg/dL (0.00-0.90) H Total Protein 7.3 G/DL (6.4-8.2) Albumin 2.9 G/DL (3.4-5.0) L Globulin 4.4 g/dL Albumin/Globulin Ratio 0.7 (1.0-2.7) L Arterial Blood pH 7.432 (7.350-7.450) Arterial Blood Partial Pressure CO2 56.2 mmHg (35.0-45.0) *H Arterial Blood Partial Pressure O2 59.8 mmHg (75.0-100.0) L Arterial Blood HCO3 30.2 mmol/L (22.0-26.0) H Arterial Blood Oxygen Saturation 98.6 % (95-100) Arterial Blood Base Excess 4.9 (-2-2) H Chadwick Test Positive Microbiology Date/Time Source Procedure Growth Status 03/10/20 06:10 Rectum VRE Culture - Final NO VANCOMYCIN RESISTANT ENTEROCOCCUS ... Complete 03/10/20 06:10 Rectum - Final NO CARBAPENEM-RESISTANT ENTEROBACTERI... Complete 03/10/20 06:10 Nasal Nares MRSA Culture - Final NO METHICILLIN RESISTANT STAPH AUREUS... Complete 03/10/20 05:50 Blood Blood Culture - Preliminary NO GROWTH AFTER 24 HOURS Resulted 03/10/20 05:35 Blood Blood Culture - Preliminary NO GROWTH AFTER 24 HOURS Resulted 03/10/20 05:20 Nasopharynx SARS-CoV-2 RdRp Gene Assay - Final Complete Intake and Output 03/11/20 03/12/20 19:00 07:00 Intake Total 250 ml Output Total 400 ml 600 ml Balance -400 ml -350 ml Intake IV Total 250 ml Output Urine Total 400 ml 600 ml # Bowel Movements 3 3 Objective PHYSICAL EXAMINATION: GENERAL: The patient is a well-developed, well-nourished male, thin appearing, in no apparent distress. HEENT: Eyes, pupils equal and responsive to light and accommodation. Extraocular movements are intact. NECK: Supple without lymphadenopathy. CHEST: BIPAP; Diffuse crackles on bilateral bases with expiratory wheezes, otherwise without rhonchi. CARDIOVASCULAR: Tachycardic, regular rhythm. S1-S2 are normal without murmurs, rubs, or gallops. ABDOMEN: Soft, nontender, and nondistended. Positive bowel sounds. No evidence of hepatosplenomegaly. Currently no rebound or guarding noted. EXTREMITIES: Negative for clubbing, cyanosis, or edema. RECTAL/GENITAL: Not performed. NEUROLOGIC: Cranial nerves II through XII are grossly intact without focal deficits. Motor strength is 5/5 bilaterally. Assessment/Plan Assessment/Plan ASSESSMENT: This is an 79-year-old male. 1. Respiratory failure. 2. COVID-19 positive. 3. Bilateral pneumonia. 4. Hypertension. 5. Congestive heart failure. 6. Chronic obstructive pulmonary disease. 7. History of prostate cancer. 8. Anemia. 9. Cerebrovascular disease, status post cerebrovascular accident. 10. Peripheral vascular disease. 11. Gastroesophageal reflux disease. 12. Major depression. 13. Seizure disorder. TREATMENT: 1. COVID-19 positive/pneumonia. An infectious disease consultation has been obtained with Dr. Lackey. A pulmonary consultation has been obtained with Dr. Sayra Fay. The patient is currently receiving Decadron. ABX=ceftriaxone and azithromycin. The patient has also been started on remdesivir. We will follow recommendation of Pulmonary and Infectious Disease. 2. Congestive heart failure. Cardiology consultation has been obtained with Dr. Chaudhry 3. History of prostate cancer. 4. Chronic obstructive pulmonary disease. As above, a pulmonary consultation has been obtained with Dr. Sayra Fay. 5. Anemia. 6. Cerebrovascular disease, status post cerebrovascular accident. Continue apixaban as above. 7. Peripheral vascular disease. 8. Gastroesophageal reflux disease. The patient has been placed on Protonix. 9. Major depression. 10. Seizure disorder. Pablo Hickman MD Mar 12, 2020 17:24
[2020-03-12] MEDS: Maintenance Dose:Remdesivir 100mg/NS 230ml x 4 Doses IV SCH ×2 (21:16)
[2020-03-13] VITALS: BP 104/86
[2020-03-13] MEDS: LORazepam Inj 2mg/ml 1ml IV PRN (03:33)
[2020-03-13 04:00] VITALS: BP 122/78
[2020-03-13] MEDS: cefTRIAXone 1 GM in D5W 55 ML IVPB SCH (04:26)
[2020-03-13 06:45] LABS: BASOPHILS % (AUTO) 2.1 % (0.0-2.0); HEMATOCRIT 48.7 % (42.0-52.0); HEMOGLOBIN 15.5 G/DL (14.2-18.0); LYMPHOCYTES % (AUTO) 11.4 % (20.0-45.0); MEAN CORPUSCULAR VOLUME 89 FL (80-99); MONOCYTES % (AUTO) 16.2 % (1.0-10.0); NEUTROPHILS % (AUTO) 70.3 % (45.0-75.0); PLATELET COUNT 259 K/UL (150-450); RED BLOOD COUNT 5.47 M/UL (4.70-6.10); RED CELL DISTRIBUTION WIDTH 12.5 % (11.6-14.8); WHITE BLOOD COUNT 5.3 K/UL (4.8-10.8)
[2020-03-13 07:05] LABS: ALANINE AMINOTRANSFERASE 54 U/L (12-78); ALBUMIN 3.3 G/DL (3.4-5.0); ALBUMIN/GLOBULIN RATIO 0.9 (1.0-2.7); ALKALINE PHOSPHATASE 69 U/L (46-116); ANION GAP 5 mmol/L (5-15); ASPARTATE AMINO TRANSFERASE 76 U/L (15-37); BILIRUBIN,DIRECT 0.1 MG/DL (0.0-0.3); BILIRUBIN,TOTAL 0.5 MG/DL (0.2-1.0); BLOOD UREA NITROGEN 25 mg/dL (7-18); CALCIUM 9.1 MG/DL (8.5-10.1); CARBON DIOXIDE 36 MMOL/L (21-32); CHLORIDE 102 MMOL/L (98-107); CREATININE 0.8 MG/DL (0.55-1.30); POTASSIUM 3.8 MMOL/L (3.5-5.1); SODIUM 143 MMOL/L (136-145)
[2020-03-13 07:16] LABS: PHOSPHORUS 2.1 MG/DL (2.5-4.9)
[2020-03-13 08:00] VITALS: BP 152/89
[2020-03-13] MEDS: Heparin 5000 units/ml inj SUBQ SCH ×2 (09:13→20:58)
[2020-03-13] MEDS: Azithromycin 250 MG in D5W 275 ML IV SCH (09:14)
--- NOTE | 2020-03-13 09:44 | Cardiology Report ---
APPROVED REPORT EXAM: Two-dimensional and M-mode echocardiogram with Doppler and color Doppler. INDICATION Left ventricular function M-Mode DIMENSIONS IVSd0.9 (0.7-1.1cm)Left Atrium (MM)3.3 (1.6-4.0cm) LVDd3.9 (3.5-5.6cm)Aortic Root2.6 (2.0-3.7cm) PWd1.0 (0.7-1.1cm)Aortic Cusp Exc.2.0 (1.5-2.0cm) IVSs1.4 cmEPSS1.0 (>1.0cm) LVDs2.5 (2.5-4.0cm) PWs1.3 cm <Conclusion> Technically difficult and limited study due to poor acoustic windows. All images obtained from subcostal view. Study quality precludes accurate assessment of regional wall motion. Normal left ventricular chamber size, systolic function and wall motion. Left ventricular ejection fraction estimated to be 60 %. No evidence of left ventricular hypertrophy. No evidence of pericardial effusion. All other cardiac chamber sizes are within normal limits. Mild focal aortic valve sclerosis with adequate cusp excursion. Thickened mitral valve leaflets with normal excursion. Mitral annulus and aortic root calcification. Pulmonic valve not visualized. Normal tricuspid valve structure. IVC dilated at 2.2 cm with physiological collapse. A color flow and spectral Doppler study was performed and revealed: No aortic regurgitation. No mitral regurgitation. Mitral diastolic velocities suggest mild left ventricular diastolic dysfunction (Grade I). No tricuspid regurgitation. No pulmonic regurgitation present.
--- NOTE | 2020-03-13 09:49 | Infectious Diseases Prog Note ---
Assessment/Plan Assessment: COVID19 pneumonia Acute hypoxic/hypercapnic resp failure- sp VM> bipap -03/11 CXR: Suspect slight worsening of bilateral upper lobe right greater than left infiltrates, over one day -03/10 CXR: Possible right upper lobe infiltrate. COPD changes. Bilateral costophrenic angle blunting. Likely related to the hyperinflation but small effusions also possible. rapid COVID PCR + Afebrile Pancytopenia -u/a neg Mild AST elevation HTN COPD CVA/[facility]) Plan: -Continue Ceftriaxone and Azithromycin #4/ -Decadron #/ -Continue Remdesivir #4/- explained risks and benefits; patient agreed. -f/u cx -Monitor CBC/CMP, temperatures -COVID19 isolation Thank you for this consultation. Will continue to follow along with you. Discussed with RN. Subjective Allergies: Coded Allergies: PENICILLINS (Verified Allergy, Unknown, 03/10/20) PHENYTOIN (Verified Allergy, Unknown, 03/10/20) Afebrile No Leukocytosis On NC 3L Objective Last 24 Hour Vital Signs Date Time Temp Pulse Resp B/P (MAP) Pulse Ox O2 Delivery O2 Flow Rate FiO2 03/13/20 08:00 98.2 76 20 152/89 (110) 94 03/13/20 05:55 80 30 98 50 03/13/20 04:03 72 22 122/78 93 03/13/20 04:00 97.8 85 22 122/78 (93) 95 03/13/20 04:00 93 03/13/20 03:33 88 22 140/88 94 03/13/20 00:00 84 03/13/20 00:00 97.9 74 22 104/86 (92) 96 03/13/20 00:00 Nasal Cannula 3.0 03/12/20 20:00 86 03/12/20 20:00 97.7 86 23 113/81 (92) 94 03/12/20 20:00 Nasal Cannula 3.0 03/12/20 19:30 78 98 32 03/12/20 16:00 88 03/12/20 16:00 Nasal Cannula 3.0 03/12/20 16:00 98.4 97 18 135/89 (104) 94 03/12/20 15:04 83 24 94 03/12/20 12:00 81 03/12/20 12:00 Nasal Cannula 3.0 03/12/20 12:00 98.1 75 19 105/57 (73) 100 03/12/20 10:55 85 25 91 Height (Feet): 5 Height (Inches): 10.00 Weight (Pounds): 143 GENERAL: On NC, awake and talking HEENT: NCAT, MMM, EOMI LUNGS: Equal rise and fall of chest B/L ABDOMEN: Soft, nondistended EXTREMITIES: No cyanosis, clubbing, or edema. Laboratory Tests Test 03/12/20 13:25 03/13/20 05:50 Arterial Blood pH 7.432 (7.350-7.450) Arterial Blood Partial Pressure CO2 56.2 mmHg (35.0-45.0) *H Arterial Blood Partial Pressure O2 59.8 mmHg (75.0-100.0) L Arterial Blood HCO3 30.2 mmol/L (22.0-26.0) H Arterial Blood Oxygen Saturation 98.6 % (95-100) Arterial Blood Base Excess 4.9 (-2-2) H Chadwick Test Positive White Blood Count 5.3 K/UL (4.8-10.8) # Red Blood Count 5.47 M/UL (4.70-6.10) Hemoglobin 15.5 G/DL (14.2-18.0) Hematocrit 48.7 % (42.0-52.0) Mean Corpuscular Volume 89 FL (80-99) Mean Corpuscular Hemoglobin 28.4 PG (27.0-31.0) Mean Corpuscular Hemoglobin Concent 31.9 G/DL (32.0-36.0) L Red Cell Distribution Width 12.5 % (11.6-14.8) Platelet Count 259 K/UL (150-450) Mean Platelet Volume 5.8 FL (6.5-10.1) L Neutrophils (%) (Auto) 70.3 % (45.0-75.0) Lymphocytes (%) (Auto) 11.4 % (20.0-45.0) L Monocytes (%) (Auto) 16.2 % (1.0-10.0) H Eosinophils (%) (Auto) 0.0 % (0.0-3.0) Basophils (%) (Auto) 2.1 % (0.0-2.0) H Erythrocyte Sedimentation Rate 47 MM/HR (0-20) H Sodium Level 143 MMOL/L (136-145) Potassium Level 3.8 MMOL/L (3.5-5.1) Chloride Level 102 MMOL/L (98-107) Carbon Dioxide Level 36 MMOL/L (21-32) H Anion Gap 5 mmol/L (5-15) Blood Urea Nitrogen 25 mg/dL (7-18) H Creatinine 0.8 MG/DL (0.55-1.30) Estimat Glomerular Filtration Rate > 60 mL/min (>60) Glucose Level 114 MG/DL (74-106) H Calcium Level 9.1 MG/DL (8.5-10.1) Phosphorus Level 2.1 MG/DL (2.5-4.9) L Magnesium Level 2.3 MG/DL (1.8-2.4) Total Bilirubin 0.5 MG/DL (0.2-1.0) Direct Bilirubin 0.1 MG/DL (0.0-0.3) Aspartate Amino Transf (AST/SGOT) 76 U/L (15-37) H Alanine Aminotransferase (ALT/SGPT) 54 U/L (12-78) Alkaline Phosphatase 69 U/L (46-116) C-Reactive Protein, Quantitative 4.4 mg/dL (0.00-0.90) H Total Protein 7.0 G/DL (6.4-8.2) Albumin 3.3 G/DL (3.4-5.0) L Globulin 3.7 g/dL Albumin/Globulin Ratio 0.9 (1.0-2.7) L Current Medications Medications (Trade) Dose Ordered Sig/Armand Route PRN Reason Start Time Stop Time Status Last Admin Dose Admin Acetaminophen (Tylenol) 650 mg Q4H PRN ORAL FEVER 03/10/20 07:30 04/09/20 07:29 Albuterol/ Ipratropium (Combivent Respimat) 1 puff Q4H PRN INH Shortness of Breath 03/11/20 20:00 04/10/20 19:59 03/12/20 18:27 Azithromycin 250 mg/Dextrose 275 ml @ 275 mls/hr Q24HRS IV 03/11/20 09:00 03/16/20 08:59 03/13/20 09:14 Ceftriaxone Sodium 1 gm/ Dextrose 55 ml @ 110 mls/hr Q24H IVPB 03/11/20 05:00 03/18/20 04:59 03/13/20 04:26 Dexamethasone Sodium Phosphate (Decadron 4mg/ml vial) 6 mg DAILY IVP 03/11/20 17:30 03/20/20 18:00 03/13/20 09:13 Dextrose (Dextrose 50%) 25 ml Q30M PRN IV Hypoglycemia 03/10/20 07:30 06/08/20 07:29 Dextrose (Dextrose 50%) 50 ml Q30M PRN IV Hypoglycemia 03/10/20 07:30 06/08/20 07:29 Gabapentin (Neurontin) 300 mg THREE TIMES A DAY ORAL 03/10/20 09:00 04/09/20 08:59 03/13/20 09:13 Heparin Sodium (Porcine) (Heparin 5000 units/ml) 5,000 units EVERY 12 HOURS SUBQ 03/10/20 21:00 04/24/20 20:59 03/13/20 09:13 Lorazepam (Ativan 2mg/ml 1ml) 1 mg Q4H PRN IV For Anxiety 03/11/20 16:30 03/18/20 16:29 03/13/20 03:33 Ondansetron HCl (Zofran) 4 mg Q6H PRN IVP Nausea & Vomiting 03/10/20 07:30 04/09/20 07:29 03/11/20 12:42 Polyethylene Glycol (Miralax) 17 gm DAILYPRN PRN ORAL Constipation 03/10/20 07:30 04/09/20 07:29 Remdesivir 100 mg/ Sodium Chloride 250 ml @ 250 mls/hr Q24H IV 03/11/20 22:00 03/14/20 22:59 03/12/20 21:16 Lalo Hewitt MD Mar 13, 2020 09:49
--- NOTE | 2020-03-13 11:13 | Pulmonology Progress Note ---
Subjective ROS Limited/Unobtainable: Yes Allergies: Coded Allergies: PENICILLINS (Verified Allergy, Unknown, 03/10/20) PHENYTOIN (Verified Allergy, Unknown, 03/10/20) Objective Last 24 Hour Vital Signs Date Time Temp Pulse Resp B/P (MAP) Pulse Ox O2 Delivery O2 Flow Rate FiO2 03/13/20 08:13 92 03/13/20 08:00 98.2 76 20 152/89 (110) 94 03/13/20 05:55 80 30 98 50 03/13/20 04:03 72 22 122/78 93 03/13/20 04:00 97.8 85 22 122/78 (93) 95 03/13/20 04:00 93 03/13/20 03:33 88 22 140/88 94 03/13/20 00:00 84 03/13/20 00:00 97.9 74 22 104/86 (92) 96 03/13/20 00:00 Nasal Cannula 3.0 03/12/20 20:00 86 03/12/20 20:00 97.7 86 23 113/81 (92) 94 03/12/20 20:00 Nasal Cannula 3.0 03/12/20 19:30 78 98 32 03/12/20 16:00 88 03/12/20 16:00 Nasal Cannula 3.0 03/12/20 16:00 98.4 97 18 135/89 (104) 94 03/12/20 15:04 83 24 94 03/12/20 12:00 81 03/12/20 12:00 Nasal Cannula 3.0 03/12/20 12:00 98.1 75 19 105/57 (73) 100 Intake and Output 03/12/20 03/13/20 18:59 06:59 Intake Total 305.0 ml Output Total 300 ml Balance 5.0 ml Intake IV Total 305.0 ml Output Urine Total 300 ml # Bowel Movements 2 General Appearance: WD/WN HEENT: normocephalic, atraumatic Respiratory: chest wall non-tender, lungs clear Cardiovascular: normal peripheral pulses, normal rate Abdomen: normal bowel sounds, soft, non tender Genitourinary: normal external genitalia Extremities: no cyanosis Skin: no rash 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 Musculoskeletal: normal muscle bulk Laboratory Tests 03/12/20 13:25: Arterial Blood pH 7.432, Arterial Blood Partial Pressure CO2 56.2*H, Arterial Blood Partial Pressure O2 59.8L, Arterial Blood HCO3 30.2H, Arterial Blood Oxygen Saturation 98.6, Arterial Blood Base Excess 4.9H, Chadwick Test Positive 03/13/20 05:50: White Blood Count 5.3#, Red Blood Count 5.47, Hemoglobin 15.5, Hematocrit 48.7, Mean Corpuscular Volume 89, Mean Corpuscular Hemoglobin 28.4, Mean Corpuscular Hemoglobin Concent 31.9L, Red Cell Distribution Width 12.5, Platelet Count 259, Mean Platelet Volume 5.8L, Neutrophils (%) (Auto) 70.3, Lymphocytes (%) (Auto) 11.4L, Monocytes (%) (Auto) 16.2H, Eosinophils (%) (Auto) 0.0, Basophils (%) (Auto) 2.1H, Erythrocyte Sedimentation Rate 47H, Sodium Level 143, Potassium Level 3.8, Chloride Level 102, Carbon Dioxide Level 36H, Anion Gap 5, Blood Urea Nitrogen 25H, Creatinine 0.8, Estimat Glomerular Filtration Rate > 60, Glucose Level 114H, Calcium Level 9.1, Phosphorus Level 2.1L, Magnesium Level 2.3, Total Bilirubin 0.5, Direct Bilirubin 0.1, Aspartate Amino Transf (AST/SGOT) 76H, Alanine Aminotransferase (ALT/SGPT) 54, Alkaline Phosphatase 69, C-Reactive Protein, Quantitative 4.4H, Total Protein 7.0, Albumin 3.3L, Globulin 3.7, Albumin/Globulin Ratio 0.9L Current Medications Medications (Trade) Dose Ordered Sig/Armand Route PRN Reason Start Time Stop Time Status Last Admin Dose Admin Acetaminophen (Tylenol) 650 mg Q4H PRN ORAL FEVER 03/10/20 07:30 04/09/20 07:29 Albuterol/ Ipratropium (Combivent Respimat) 1 puff Q4H PRN INH Shortness of Breath 03/11/20 20:00 04/10/20 19:59 03/12/20 18:27 Azithromycin 250 mg/Dextrose 275 ml @ 275 mls/hr Q24HRS IV 03/11/20 09:00 03/16/20 08:59 03/13/20 09:14 Ceftriaxone Sodium 1 gm/ Dextrose 55 ml @ 110 mls/hr Q24H IVPB 03/11/20 05:00 03/18/20 04:59 03/13/20 04:26 Dexamethasone Sodium Phosphate (Decadron 4mg/ml vial) 6 mg DAILY IVP 03/11/20 17:30 03/20/20 18:00 03/13/20 09:13 Dextrose (Dextrose 50%) 25 ml Q30M PRN IV Hypoglycemia 03/10/20 07:30 06/08/20 07:29 Dextrose (Dextrose 50%) 50 ml Q30M PRN IV Hypoglycemia 03/10/20 07:30 06/08/20 07:29 Gabapentin (Neurontin) 300 mg THREE TIMES A DAY ORAL 03/10/20 09:00 04/09/20 08:59 03/13/20 09:13 Heparin Sodium (Porcine) (Heparin 5000 units/ml) 5,000 units EVERY 12 HOURS SUBQ 03/10/20 21:00 04/24/20 20:59 03/13/20 09:13 Lorazepam (Ativan 2mg/ml 1ml) 1 mg Q4H PRN IV For Anxiety 03/11/20 16:30 03/18/20 16:29 03/13/20 03:33 Ondansetron HCl (Zofran) 4 mg Q6H PRN IVP Nausea & Vomiting 03/10/20 07:30 04/09/20 07:29 03/11/20 12:42 Polyethylene Glycol (Miralax) 17 gm DAILYPRN PRN ORAL Constipation 03/10/20 07:30 04/09/20 07:29 Remdesivir 100 mg/ Sodium Chloride 250 ml @ 250 mls/hr Q24H IV 03/11/20 22:00 03/14/20 22:59 03/12/20 21:16 Assessment/Plan Problems: (1) Pneumonia due to COVID-19 virus (2) COPD (chronic obstructive pulmonary disease) (3) HTN (hypertension) (4) History of CVA (cerebrovascular accident) Assessment/Plan on nasal cannula improving respiratory treatment titrate fio2 to sat of 92% check sputum iv abx Decadron respiratory isolation Sayra Fay MD Mar 13, 2020 11:13
[2020-03-13 11:45] VITALS: BP 146/71
[2020-03-13] MEDS: Miralax 17gm pkt ORAL PRN (14:54)
--- NOTE | 2020-03-13 15:18 | Internal Med Progress Note ---
Subjective Physician Name Torres Saul Attending Physician Torres Saul MD Current Medications Medications (Trade) Dose Ordered Sig/Armand Route PRN Reason Start Time Stop Time Status Last Admin Dose Admin Acetaminophen (Tylenol) 650 mg Q4H PRN ORAL FEVER 03/10/20 07:30 04/09/20 07:29 Albuterol/ Ipratropium (Combivent Respimat) 1 puff Q4H PRN INH Shortness of Breath 03/11/20 20:00 04/10/20 19:59 03/12/20 18:27 Azithromycin 250 mg/Dextrose 275 ml @ 275 mls/hr Q24HRS IV 03/11/20 09:00 03/16/20 08:59 03/13/20 09:14 Ceftriaxone Sodium 1 gm/ Dextrose 55 ml @ 110 mls/hr Q24H IVPB 03/11/20 05:00 03/18/20 04:59 03/13/20 04:26 Dexamethasone Sodium Phosphate (Decadron 4mg/ml vial) 6 mg DAILY IVP 03/11/20 17:30 03/20/20 18:00 03/13/20 09:13 Dextrose (Dextrose 50%) 25 ml Q30M PRN IV Hypoglycemia 03/10/20 07:30 06/08/20 07:29 Dextrose (Dextrose 50%) 50 ml Q30M PRN IV Hypoglycemia 03/10/20 07:30 06/08/20 07:29 Gabapentin (Neurontin) 300 mg THREE TIMES A DAY ORAL 03/10/20 09:00 04/09/20 08:59 03/13/20 12:01 Heparin Sodium (Porcine) (Heparin 5000 units/ml) 5,000 units EVERY 12 HOURS SUBQ 03/10/20 21:00 04/24/20 20:59 03/13/20 09:13 Lorazepam (Ativan 2mg/ml 1ml) 1 mg Q4H PRN IV For Anxiety 03/11/20 16:30 03/18/20 16:29 03/13/20 03:33 Ondansetron HCl (Zofran) 4 mg Q6H PRN IVP Nausea & Vomiting 03/10/20 07:30 04/09/20 07:29 03/11/20 12:42 Polyethylene Glycol (Miralax) 17 gm DAILYPRN PRN ORAL Constipation 03/10/20 07:30 04/09/20 07:29 03/13/20 14:54 Remdesivir 100 mg/ Sodium Chloride 250 ml @ 250 mls/hr Q24H IV 03/11/20 22:00 03/14/20 22:59 03/12/20 21:16 Allergies: Coded Allergies: PENICILLINS (Verified Allergy, Unknown, 03/10/20) PHENYTOIN (Verified Allergy, Unknown, 03/10/20) Subjective awake, responsive, oxygen via nasal cannula, refused BiPAP. Objective Last Vital Signs Date Time Temp Pulse Resp B/P (MAP) Pulse Ox O2 Delivery O2 Flow Rate FiO2 03/13/20 11:49 88 03/13/20 11:45 96.7 22 146/71 (96) 93 03/13/20 09:00 Nasal Cannula 3.0 03/13/20 05:55 50 Laboratory Tests Test 03/13/20 05:50 White Blood Count 5.3 K/UL (4.8-10.8) # Red Blood Count 5.47 M/UL (4.70-6.10) Hemoglobin 15.5 G/DL (14.2-18.0) Hematocrit 48.7 % (42.0-52.0) Mean Corpuscular Volume 89 FL (80-99) Mean Corpuscular Hemoglobin 28.4 PG (27.0-31.0) Mean Corpuscular Hemoglobin Concent 31.9 G/DL (32.0-36.0) L Red Cell Distribution Width 12.5 % (11.6-14.8) Platelet Count 259 K/UL (150-450) Mean Platelet Volume 5.8 FL (6.5-10.1) L Neutrophils (%) (Auto) 70.3 % (45.0-75.0) Lymphocytes (%) (Auto) 11.4 % (20.0-45.0) L Monocytes (%) (Auto) 16.2 % (1.0-10.0) H Eosinophils (%) (Auto) 0.0 % (0.0-3.0) Basophils (%) (Auto) 2.1 % (0.0-2.0) H Erythrocyte Sedimentation Rate 47 MM/HR (0-20) H Sodium Level 143 MMOL/L (136-145) Potassium Level 3.8 MMOL/L (3.5-5.1) Chloride Level 102 MMOL/L (98-107) Carbon Dioxide Level 36 MMOL/L (21-32) H Anion Gap 5 mmol/L (5-15) Blood Urea Nitrogen 25 mg/dL (7-18) H Creatinine 0.8 MG/DL (0.55-1.30) Estimat Glomerular Filtration Rate > 60 mL/min (>60) Glucose Level 114 MG/DL (74-106) H Calcium Level 9.1 MG/DL (8.5-10.1) Phosphorus Level 2.1 MG/DL (2.5-4.9) L Magnesium Level 2.3 MG/DL (1.8-2.4) Total Bilirubin 0.5 MG/DL (0.2-1.0) Direct Bilirubin 0.1 MG/DL (0.0-0.3) Aspartate Amino Transf (AST/SGOT) 76 U/L (15-37) H Alanine Aminotransferase (ALT/SGPT) 54 U/L (12-78) Alkaline Phosphatase 69 U/L (46-116) C-Reactive Protein, Quantitative 4.4 mg/dL (0.00-0.90) H Total Protein 7.0 G/DL (6.4-8.2) Albumin 3.3 G/DL (3.4-5.0) L Globulin 3.7 g/dL Albumin/Globulin Ratio 0.9 (1.0-2.7) L Intake and Output 03/12/20 03/13/20 19:00 07:00 Intake Total 305.0 ml Output Total 300 ml Balance 5.0 ml Intake IV Total 305.0 ml Output Urine Total 300 ml # Bowel Movements 2 Objective General: No acute distress, awake HEENT: NCAT, sclera anicteric, PERRL, EOMI. Neck: Supple, no significant jugular venous distention, Lungs: decreased at bases, no Wheeze or Rales. Heart: Regular rate and rhythm, normal S1/S2, no murmurs. Abdomen: soft, nontender, nondistended. Normoactive bowel sounds. Extremities: No Cyanosis , clubbing or edema. Neuro: Able to move all extremities Skin: warm, no rasht Assessment/Plan Assessment/Plan ASSESSMENT: This is an 79-year-old male. 1. acute hypoxemic/hypercapnic Respiratory failure. 2. COVID-19 pneumonia. 3. Bilateral pneumonia. 4. Hypertension. 5. Congestive heart failure. 6. Chronic obstructive pulmonary disease. 7. History of prostate cancer. 8. Anemia. 9. Cerebrovascular disease, status post cerebrovascular accident. 10. Peripheral vascular disease. 11. Gastroesophageal reflux disease. 12. Major depression. 13. Seizure disorder. 14. pancytopenia. TREATMENT: 1. COVID-19 positive/pneumonia. An infectious disease consultation has been obtained with Dr. Lackey. A pulmonary consultation has been obtained with Dr. Sayra Fay. The patient is currently receiving -Decadron IV Day 09/26. -ABX=ceftriaxone and azithromycin. -Remdesivir Day 09/21 2. Congestive heart failure. Cardiology consultation has been obtained with Dr. Chaudhry 3. History of prostate cancer. 4. Chronic obstructive pulmonary disease. As above, a pulmonary consultation has been obtained with Dr. Sayra Fay. 5. Anemia. 6. Cerebrovascular disease, status post cerebrovascular accident. Continue apixaban as above. 7. Peripheral vascular disease. 8. Gastroesophageal reflux disease. The patient has been placed on Protonix. 9. Major depression. 10. Seizure disorder. CODE STATUS: full code DVT prophylaxis: Heparin subcu. Torres Saul MD Mar 13, 2020 15:18
[2020-03-13 16:00] VITALS: BP 131/61
[2020-03-13 20:00] VITALS: BP 117/79
[2020-03-13] MEDS: Maintenance Dose:Remdesivir 100mg/NS 230ml x 4 Doses IV SCH ×2 (22:36)
[2020-03-14] VITALS: BP 135/96
[2020-03-14 04:00] VITALS: BP 150/73
[2020-03-14] MEDS: cefTRIAXone 1 GM in D5W 55 ML IVPB SCH (05:05)
--- NOTE | 2020-03-14 07:12 | Infectious Diseases Prog Note ---
Assessment/Plan Assessment: COVID19 pneumonia Acute hypoxic/hypercapnic resp failure- sp VM> bipap -03/11 CXR: Suspect slight worsening of bilateral upper lobe right greater than left infiltrates, over one day -03/10 CXR: Possible right upper lobe infiltrate. COPD changes. Bilateral costophrenic angle blunting. Likely related to the hyperinflation but small effusions also possible. rapid COVID PCR + Afebrile Pancytopenia -u/a neg Mild AST elevation HTN COPD CVA/TIA CT resident ([facility]) Plan: -Continue Ceftriaxone and Azithromycin #/ -Decadron #/ -Continue Remdesivir #/- explained risks and benefits; patient agreed. -f/u cx -Monitor CBC/CMP, temperatures -COVID19 isolation Thank you for this consultation. Will continue to follow along with you. Subjective Allergies: Coded Allergies: PENICILLINS (Verified Allergy, Unknown, 03/10/20) PHENYTOIN (Verified Allergy, Unknown, 03/10/20) AF 3L NC NAD Says he on O2 at home too Wants to go home, says breathing is better Objective Last 24 Hour Vital Signs Date Time Temp Pulse Resp B/P (MAP) Pulse Ox O2 Delivery O2 Flow Rate FiO2 03/14/20 04:00 96.8 75 20 150/73 (98) 100 03/14/20 04:00 79 03/14/20 00:00 96.3 86 27 135/96 (109) 93 03/14/20 00:00 84 03/13/20 21:00 Nasal Cannula 3.0 03/13/20 20:00 98.7 96 28 117/79 (92) 94 03/13/20 20:00 88 03/13/20 16:29 96 03/13/20 16:00 98.7 71 21 131/61 (84) 94 03/13/20 11:49 88 03/13/20 11:45 96.7 89 22 146/71 (96) 93 03/13/20 09:00 Nasal Cannula 3.0 03/13/20 08:13 92 03/13/20 08:00 98.2 76 20 152/89 (110) 94 Height (Feet): 5 Height (Inches): 10.00 Weight (Pounds): 143 Gen: NAD in bed HEENT: NCAT, EOMI, PERRL Pulm: BL chest rise Abd: Soft, NTND Ext: No c/c/e Neuro: Awake Current Medications Medications (Trade) Dose Ordered Sig/Armand Route PRN Reason Start Time Stop Time Status Last Admin Dose Admin Acetaminophen (Tylenol) 650 mg Q4H PRN ORAL FEVER 03/10/20 07:30 04/09/20 07:29 Albuterol/ Ipratropium (Combivent Respimat) 1 puff Q4H PRN INH Shortness of Breath 03/11/20 20:00 04/10/20 19:59 03/14/20 05:04 Azithromycin 250 mg/Dextrose 275 ml @ 275 mls/hr Q24HRS IV 03/11/20 09:00 03/16/20 08:59 03/13/20 09:14 Ceftriaxone Sodium 1 gm/ Dextrose 55 ml @ 110 mls/hr Q24H IVPB 03/11/20 05:00 03/18/20 04:59 03/14/20 05:05 Dexamethasone Sodium Phosphate (Decadron 4mg/ml vial) 6 mg DAILY IVP 03/11/20 17:30 03/20/20 18:00 03/13/20 09:13 Dextrose (Dextrose 50%) 25 ml Q30M PRN IV Hypoglycemia 03/10/20 07:30 06/08/20 07:29 Dextrose (Dextrose 50%) 50 ml Q30M PRN IV Hypoglycemia 03/10/20 07:30 06/08/20 07:29 Gabapentin (Neurontin) 300 mg THREE TIMES A DAY ORAL 03/10/20 09:00 04/09/20 08:59 03/13/20 17:25 Heparin Sodium (Porcine) (Heparin 5000 units/ml) 5,000 units EVERY 12 HOURS SUBQ 03/10/20 21:00 04/24/20 20:59 03/13/20 20:58 Lorazepam (Ativan 2mg/ml 1ml) 1 mg Q4H PRN IV For Anxiety 03/11/20 16:30 03/18/20 16:29 03/13/20 03:33 Ondansetron HCl (Zofran) 4 mg Q6H PRN IVP Nausea & Vomiting 03/10/20 07:30 04/09/20 07:29 03/11/20 12:42 Polyethylene Glycol (Miralax) 17 gm DAILYPRN PRN ORAL Constipation 03/10/20 07:30 04/09/20 07:29 03/13/20 14:54 Remdesivir 100 mg/ Sodium Chloride 250 ml @ 250 mls/hr Q24H IV 03/11/20 22:00 03/14/20 22:59 03/13/20 22:36 Jenni Rankin M.D. Mar 14, 2020 07:12
--- NOTE | 2020-03-14 07:58 | Pulmonology Progress Note ---
Subjective ROS Limited/Unobtainable: Yes Allergies: Coded Allergies: PENICILLINS (Verified Allergy, Unknown, 03/10/20) PHENYTOIN (Verified Allergy, Unknown, 03/10/20) Subjective afebrile, no leucocytosis on O2 3L via NC no signs of resp distress Objective Last 24 Hour Vital Signs Date Time Temp Pulse Resp B/P (MAP) Pulse Ox O2 Delivery O2 Flow Rate FiO2 03/14/20 04:00 96.8 75 20 150/73 (98) 100 03/14/20 04:00 79 03/14/20 00:00 96.3 86 27 135/96 (109) 93 03/14/20 00:00 84 03/13/20 21:00 Nasal Cannula 3.0 03/13/20 20:00 98.7 96 28 117/79 (92) 94 03/13/20 20:00 88 03/13/20 16:29 96 03/13/20 16:00 98.7 71 21 131/61 (84) 94 03/13/20 11:49 88 03/13/20 11:45 96.7 89 22 146/71 (96) 93 03/13/20 09:00 Nasal Cannula 3.0 03/13/20 08:13 92 03/13/20 08:00 98.2 76 20 152/89 (110) 94 Intake and Output 03/13/20 03/14/20 19:00 07:00 Intake Total 275 ml Balance 275 ml Intake IV Total 275 ml # Voids 4 General Appearance: WD/WN, other - elderly AA male bedridden in NAD HEENT: normocephalic, atraumatic Respiratory: chest wall non-tender, lungs clear Cardiovascular: normal peripheral pulses, normal rate - SR on tele Abdomen: normal bowel sounds, soft, non tender Genitourinary: normal external genitalia Extremities: no edema Skin: no rash Neurologic: abnormal gait, alert Musculoskeletal: atrophy - BLE Current Medications Medications (Trade) Dose Ordered Sig/Armand Route PRN Reason Start Time Stop Time Status Last Admin Dose Admin Acetaminophen (Tylenol) 650 mg Q4H PRN ORAL FEVER 03/10/20 07:30 04/09/20 07:29 Albuterol/ Ipratropium (Combivent Respimat) 1 puff Q4H PRN INH Shortness of Breath 03/11/20 20:00 04/10/20 19:59 03/14/20 05:04 Azithromycin 250 mg/Dextrose 275 ml @ 275 mls/hr Q24HRS IV 03/11/20 09:00 03/16/20 08:59 03/13/20 09:14 Ceftriaxone Sodium 1 gm/ Dextrose 55 ml @ 110 mls/hr Q24H IVPB 03/11/20 05:00 03/18/20 04:59 03/14/20 05:05 Dexamethasone Sodium Phosphate (Decadron 4mg/ml vial) 6 mg DAILY IVP 03/11/20 17:30 03/20/20 18:00 03/13/20 09:13 Dextrose (Dextrose 50%) 25 ml Q30M PRN IV Hypoglycemia 03/10/20 07:30 06/08/20 07:29 Dextrose (Dextrose 50%) 50 ml Q30M PRN IV Hypoglycemia 03/10/20 07:30 06/08/20 07:29 Gabapentin (Neurontin) 300 mg THREE TIMES A DAY ORAL 03/10/20 09:00 04/09/20 08:59 03/13/20 17:25 Heparin Sodium (Porcine) (Heparin 5000 units/ml) 5,000 units EVERY 12 HOURS SUBQ 03/10/20 21:00 04/24/20 20:59 03/13/20 20:58 Lorazepam (Ativan 2mg/ml 1ml) 1 mg Q4H PRN IV For Anxiety 03/11/20 16:30 03/18/20 16:29 03/13/20 03:33 Ondansetron HCl (Zofran) 4 mg Q6H PRN IVP Nausea & Vomiting 03/10/20 07:30 04/09/20 07:29 03/11/20 12:42 Polyethylene Glycol (Miralax) 17 gm DAILYPRN PRN ORAL Constipation 03/10/20 07:30 04/09/20 07:29 03/13/20 14:54 Remdesivir 100 mg/ Sodium Chloride 250 ml @ 250 mls/hr Q24H IV 03/11/20 22:00 03/14/20 22:59 03/13/20 22:36 Assessment/Plan Assessment/Plan ASSESSMENT COVID-19 pneumonia Acute hypoxemic hypercapnic respiratory failure secondary to COVID infection, requiring NRM and BiPAP-resolved COPD Hypertension History of CVA PLAN OF CARE tele isolation O2 titrate to keep sat above 92% MDI Combivent prn continue Remdesivir and steroid empiric abx for superimposed pneumonia fup CXR ->with improvement fup with inflammatory markers DVT prophylaxis BCX NGTD rapid COVID 19 03/10 + Echo with pEF supportive care case discussed and evaluated by supervising physician Prabha Dewitt NP Mar 14, 2020 07:58
[2020-03-14 08:00] VITALS: BP 121/90
[2020-03-14] MEDS: Heparin 5000 units/ml inj SUBQ SCH ×2 (08:40→21:06)
[2020-03-14] MEDS: Azithromycin 250 MG in D5W 275 ML IV SCH (08:53)
[2020-03-14 10:08] LABS: EOSINOPHILS % (AUTO) 0.3 % (0.0-3.0); HEMATOCRIT 42.9 % (42.0-52.0); HEMOGLOBIN 13.9 G/DL (14.2-18.0); LYMPHOCYTES % (AUTO) 12.1 % (20.0-45.0); MEAN CORPUSCULAR VOLUME 89 FL (80-99); MONOCYTES % (AUTO) 13.3 % (1.0-10.0); NEUTROPHILS % (AUTO) 73.3 % (45.0-75.0); PLATELET COUNT 267 K/UL (150-450); RED BLOOD COUNT 4.83 M/UL (4.70-6.10); RED CELL DISTRIBUTION WIDTH 12.6 % (11.6-14.8)
[2020-03-14 10:26] LABS: ALANINE AMINOTRANSFERASE 48 U/L (12-78); ALBUMIN 2.9 G/DL (3.4-5.0); ALBUMIN/GLOBULIN RATIO 0.9 (1.0-2.7); ALKALINE PHOSPHATASE 57 U/L (46-116); ANION GAP 0 mmol/L (5-15); ASPARTATE AMINO TRANSFERASE 49 U/L (15-37); BILIRUBIN,DIRECT < 0.1 MG/DL (0.0-0.3); BILIRUBIN,TOTAL 0.3 MG/DL (0.2-1.0); BLOOD UREA NITROGEN 24 mg/dL (7-18); CALCIUM 8.6 MG/DL (8.5-10.1); CARBON DIOXIDE 38 MMOL/L (21-32); CHLORIDE 103 MMOL/L (98-107); CREATININE 0.8 MG/DL (0.55-1.30); POTASSIUM 3.7 MMOL/L (3.5-5.1); SODIUM 141 MMOL/L (136-145)
--- NOTE | 2020-03-14 11:29 | Internal Med Progress Note ---
Subjective Date of Service: Mar 14, 2020 Physician Name Hickman,Pablo Attending Physician Torres Saul MD Current Medications Medications (Trade) Dose Ordered Sig/Armand Route PRN Reason Start Time Stop Time Status Last Admin Dose Admin Acetaminophen (Tylenol) 650 mg Q4H PRN ORAL FEVER 03/10/20 07:30 04/09/20 07:29 Albuterol/ Ipratropium (Combivent Respimat) 1 puff Q4H PRN INH Shortness of Breath 03/11/20 20:00 04/10/20 19:59 03/14/20 05:04 Azithromycin 250 mg/Dextrose 275 ml @ 275 mls/hr Q24HRS IV 03/11/20 09:00 03/16/20 08:59 03/14/20 08:53 Ceftriaxone Sodium 1 gm/ Dextrose 55 ml @ 110 mls/hr Q24H IVPB 03/11/20 05:00 03/18/20 04:59 03/14/20 05:05 Dexamethasone Sodium Phosphate (Decadron 4mg/ml vial) 6 mg DAILY IVP 03/11/20 17:30 03/20/20 18:00 03/14/20 08:39 Dextrose (Dextrose 50%) 25 ml Q30M PRN IV Hypoglycemia 03/10/20 07:30 06/08/20 07:29 Dextrose (Dextrose 50%) 50 ml Q30M PRN IV Hypoglycemia 03/10/20 07:30 06/08/20 07:29 Gabapentin (Neurontin) 300 mg THREE TIMES A DAY ORAL 03/10/20 09:00 04/09/20 08:59 03/14/20 08:37 Heparin Sodium (Porcine) (Heparin 5000 units/ml) 5,000 units EVERY 12 HOURS SUBQ 03/10/20 21:00 04/24/20 20:59 03/14/20 08:40 Lorazepam (Ativan 2mg/ml 1ml) 1 mg Q4H PRN IV For Anxiety 03/11/20 16:30 03/18/20 16:29 03/13/20 03:33 Ondansetron HCl (Zofran) 4 mg Q6H PRN IVP Nausea & Vomiting 03/10/20 07:30 04/09/20 07:29 03/11/20 12:42 Polyethylene Glycol (Miralax) 17 gm DAILYPRN PRN ORAL Constipation 03/10/20 07:30 04/09/20 07:29 03/13/20 14:54 Remdesivir 100 mg/ Sodium Chloride 250 ml @ 250 mls/hr Q24H IV 03/11/20 22:00 03/14/20 22:59 03/13/20 22:36 Allergies: Coded Allergies: PENICILLINS (Verified Allergy, Unknown, 03/10/20) PHENYTOIN (Verified Allergy, Unknown, 03/10/20) ROS Limited/Unobtainable: Yes Subjective 79 YO M admitted with shortness of breath. Now COVID 19 pneumonia. Cover for Int Med-Dr Saul. Objective Last Vital Signs Date Time Temp Pulse Resp B/P (MAP) Pulse Ox O2 Delivery O2 Flow Rate FiO2 03/14/20 09:00 Nasal Cannula 3.0 03/14/20 08:00 97.6 80 22 121/90 (100) 96 03/13/20 05:55 50 Laboratory Tests Test 03/14/20 09:50 White Blood Count 5.0 K/UL (4.8-10.8) Red Blood Count 4.83 M/UL (4.70-6.10) Hemoglobin 13.9 G/DL (14.2-18.0) L Hematocrit 42.9 % (42.0-52.0) Mean Corpuscular Volume 89 FL (80-99) Mean Corpuscular Hemoglobin 28.8 PG (27.0-31.0) Mean Corpuscular Hemoglobin Concent 32.5 G/DL (32.0-36.0) Red Cell Distribution Width 12.6 % (11.6-14.8) Platelet Count 267 K/UL (150-450) Mean Platelet Volume 5.2 FL (6.5-10.1) L Neutrophils (%) (Auto) 73.3 % (45.0-75.0) Lymphocytes (%) (Auto) 12.1 % (20.0-45.0) L Monocytes (%) (Auto) 13.3 % (1.0-10.0) H Eosinophils (%) (Auto) 0.3 % (0.0-3.0) Basophils (%) (Auto) 1.0 % (0.0-2.0) Sodium Level 141 MMOL/L (136-145) Potassium Level 3.7 MMOL/L (3.5-5.1) Chloride Level 103 MMOL/L (98-107) Carbon Dioxide Level 38 MMOL/L (21-32) H Anion Gap 0 mmol/L (5-15) L Blood Urea Nitrogen 24 mg/dL (7-18) H Creatinine 0.8 MG/DL (0.55-1.30) Estimat Glomerular Filtration Rate > 60 mL/min (>60) Glucose Level 194 MG/DL (74-106) H Calcium Level 8.6 MG/DL (8.5-10.1) Total Bilirubin 0.3 MG/DL (0.2-1.0) Direct Bilirubin < 0.1 MG/DL (0.0-0.3) Aspartate Amino Transf (AST/SGOT) 49 U/L (15-37) H Alanine Aminotransferase (ALT/SGPT) 48 U/L (12-78) Alkaline Phosphatase 57 U/L (46-116) Total Protein 6.0 G/DL (6.4-8.2) L Albumin 2.9 G/DL (3.4-5.0) L Globulin 3.1 g/dL Albumin/Globulin Ratio 0.9 (1.0-2.7) L Intake and Output 03/13/20 03/14/20 19:00 07:00 Intake Total 275 ml Balance 275 ml Intake IV Total 275 ml # Voids 4 Objective PHYSICAL EXAMINATION: GENERAL: The patient is a well-developed, well-nourished male, thin appearing, in no apparent distress. HEENT: Eyes, pupils equal and responsive to light and accommodation. Extraocular movements are intact. NECK: Supple without lymphadenopathy. CHEST: BIPAP; Diffuse crackles on bilateral bases with expiratory wheezes, otherwise without rhonchi. CARDIOVASCULAR: Tachycardic, regular rhythm. S1-S2 are normal without murmurs, rubs, or gallops. ABDOMEN: Soft, nontender, and nondistended. Positive bowel sounds. No evidence of hepatosplenomegaly. Currently no rebound or guarding noted. EXTREMITIES: Negative for clubbing, cyanosis, or edema. RECTAL/GENITAL: Not performed. NEUROLOGIC: Cranial nerves II through XII are grossly intact without focal deficits. Motor strength is 5/5 bilaterally. Assessment/Plan Assessment/Plan ASSESSMENT: This is an 79-year-old male. 1. Respiratory failure. 2. COVID-19 positive. 3. Bilateral pneumonia. 4. Hypertension. 5. Congestive heart failure. 6. Chronic obstructive pulmonary disease. 7. History of prostate cancer. 8. Anemia. 9. Cerebrovascular disease, status post cerebrovascular accident. 10. Peripheral vascular disease. 11. Gastroesophageal reflux disease. 12. Major depression. 13. Seizure disorder. TREATMENT: 1. COVID-19 positive/pneumonia. Infectious disease=Dr. Lackey. Pulmonary/critical care= Dr. Sayra Fay. The patient is currently receiving: -Decadron IV Day 10/26. -ABX=ceftriaxone and azithromycin. -Remdesivir Day 10/21 2. Congestive heart failure. Cardiology consultation has been obtained with Dr. Chaudhry 3. History of prostate cancer. 4. Chronic obstructive pulmonary disease. As above, a pulmonary consultation has been obtained with Dr. Sayra Fay. 5. Anemia. 6. Cerebrovascular disease, status post cerebrovascular accident. Continue apixaban as above. 7. Peripheral vascular disease. 8. Gastroesophageal reflux disease. The patient has been placed on Protonix. 9. Major depression. 10. Seizure disorder. 11. CODE STATUS: full code 12. DVT prophylaxis: Heparin subcu. Pablo Hickman MD Mar 14, 2020 11:29
[2020-03-14 12:00] VITALS: BP 120/88
[2020-03-14 16:00] VITALS: BP 110/65
[2020-03-14] MEDS ORDERED: NS 275ml ONE (18:44)
[2020-03-14 20:00] VITALS: BP 110/71
[2020-03-14] MEDS: Maintenance Dose:Remdesivir 100mg/NS 230ml x 4 Doses IV SCH ×2 (22:02)
[2020-03-15] VITALS: BP 123/80
[2020-03-15 04:00] VITALS: BP 111/67
[2020-03-15] MEDS: cefTRIAXone 1 GM in D5W 55 ML IVPB SCH (05:10)
[2020-03-15 07:13] LABS: EOSINOPHILS % (AUTO) 0.2 % (0.0-3.0); HEMOGLOBIN 13.9 G/DL (14.2-18.0); MEAN CORPUSCULAR VOLUME 89 FL (80-99); MONOCYTES % (AUTO) 14.3 % (1.0-10.0); NEUTROPHILS % (AUTO) 65.5 % (45.0-75.0); PLATELET COUNT 311 K/UL (150-450); RED BLOOD COUNT 4.83 M/UL (4.70-6.10); RED CELL DISTRIBUTION WIDTH 12.6 % (11.6-14.8); WHITE BLOOD COUNT 5.4 K/UL (4.8-10.8)
[2020-03-15 07:51] LABS: ANION GAP 6 mmol/L (5-15); BLOOD UREA NITROGEN 23 mg/dL (7-18); CALCIUM 8.7 MG/DL (8.5-10.1); CARBON DIOXIDE 36 MMOL/L (21-32); CHLORIDE 102 MMOL/L (98-107); CREATININE 0.8 MG/DL (0.55-1.30); FERRITIN 227 NG/ML (8-388); POTASSIUM 3.8 MMOL/L (3.5-5.1); SODIUM 144 MMOL/L (136-145)
[2020-03-15 08:00] VITALS: BP 100/76
[2020-03-15] MEDS: Azithromycin 250 MG in D5W 275 ML IV SCH (09:02)
[2020-03-15] MEDS: Heparin 5000 units/ml inj SUBQ SCH ×2 (09:03→20:50)
--- NOTE | 2020-03-15 11:07 | Pulmonology Progress Note ---
Subjective ROS Limited/Unobtainable: Yes Allergies: Coded Allergies: PENICILLINS (Verified Allergy, Unknown, 03/10/20) PHENYTOIN (Verified Allergy, Unknown, 03/10/20) Subjective afebrile, no leucocytosis on O2 3L via NC no signs of resp distress CRP down to normal this am Objective Last 24 Hour Vital Signs Date Time Temp Pulse Resp B/P (MAP) Pulse Ox O2 Delivery O2 Flow Rate FiO2 03/15/20 09:00 Nasal Cannula 4.0 03/15/20 08:12 98.1 03/15/20 08:00 98.1 90 20 100/76 (84) 96 03/15/20 08:00 73 03/15/20 04:00 97.9 72 22 111/67 (82) 98 03/15/20 04:00 73 03/15/20 00:00 97.9 76 24 123/80 (94) 96 03/15/20 00:00 69 03/14/20 21:00 Nasal Cannula 3.0 03/14/20 20:00 70 03/14/20 20:00 97.5 75 28 110/71 (84) 96 03/14/20 16:00 77 03/14/20 16:00 97.4 79 22 110/65 (80) 95 03/14/20 12:00 97.4 79 22 120/88 (99) 100 03/14/20 12:00 77 Intake and Output 03/14/20 03/15/20 19:00 07:00 Intake Total 800 ml Output Total 600 ml Balance 200 ml Intake Oral 800 ml Output Urine Total 600 ml # Voids 3 General Appearance: WD/WN, other - elderly AA male bedridden in NAD HEENT: normocephalic, atraumatic Respiratory: chest wall non-tender, lungs clear Cardiovascular: normal peripheral pulses, normal rate - SR on tele Abdomen: normal bowel sounds, soft, non tender Genitourinary: normal external genitalia Extremities: no edema Skin: no rash Neurologic: abnormal gait, alert Musculoskeletal: atrophy - BLE Laboratory Tests 03/15/20 06:01: White Blood Count 5.4, Red Blood Count 4.83, Hemoglobin 13.9L, Hematocrit 43.0, Mean Corpuscular Volume 89, Mean Corpuscular Hemoglobin 28.8, Mean Corpuscular Hemoglobin Concent 32.4, Red Cell Distribution Width 12.6, Platelet Count 311, Mean Platelet Volume 4.9L, Neutrophils (%) (Auto) 65.5, Lymphocytes (%) (Auto) 19.0L, Monocytes (%) (Auto) 14.3H, Eosinophils (%) (Auto) 0.2, Basophils (%) (Auto) 1.0, Sodium Level 144, Potassium Level 3.8, Chloride Level 102, Carbon Dioxide Level 36H, Anion Gap 6, Blood Urea Nitrogen 23H, Creatinine 0.8, Estimat Glomerular Filtration Rate > 60, Glucose Level 111H, Calcium Level 8.7, Ferritin 227, C-Reactive Protein, Quantitative 0.9 Current Medications Medications (Trade) Dose Ordered Sig/Ramand Route PRN Reason Start Time Stop Time Status Last Admin Dose Admin Acetaminophen (Tylenol) 650 mg Q4H PRN ORAL FEVER 03/10/20 07:30 04/09/20 07:29 03/15/20 07:42 Albuterol/ Ipratropium (Combivent Respimat) 1 puff Q4H PRN INH Shortness of Breath 03/11/20 20:00 04/10/20 19:59 03/14/20 05:04 Azithromycin 250 mg/Dextrose 275 ml @ 275 mls/hr Q24HRS IV 03/11/20 09:00 03/16/20 08:59 03/15/20 09:02 Ceftriaxone Sodium 1 gm/ Dextrose 55 ml @ 110 mls/hr Q24H IVPB 03/11/20 05:00 03/18/20 04:59 03/15/20 05:10 Dexamethasone Sodium Phosphate (Decadron 4mg/ml vial) 6 mg DAILY IVP 03/11/20 17:30 03/20/20 18:00 03/15/20 09:04 Dextrose (Dextrose 50%) 25 ml Q30M PRN IV Hypoglycemia 03/10/20 07:30 06/08/20 07:29 Dextrose (Dextrose 50%) 50 ml Q30M PRN IV Hypoglycemia 03/10/20 07:30 06/08/20 07:29 Gabapentin (Neurontin) 300 mg THREE TIMES A DAY ORAL 03/10/20 09:00 04/09/20 08:59 03/15/20 09:04 Heparin Sodium (Porcine) (Heparin 5000 units/ml) 5,000 units EVERY 12 HOURS SUBQ 03/10/20 21:00 04/24/20 20:59 03/15/20 09:03 Lorazepam (Ativan 2mg/ml 1ml) 1 mg Q4H PRN IV For Anxiety 03/11/20 16:30 03/18/20 16:29 03/13/20 03:33 Ondansetron HCl (Zofran) 4 mg Q6H PRN IVP Nausea & Vomiting 03/10/20 07:30 04/09/20 07:29 03/11/20 12:42 Polyethylene Glycol (Miralax) 17 gm DAILYPRN PRN ORAL Constipation 03/10/20 07:30 04/09/20 07:29 03/13/20 14:54 Assessment/Plan Assessment/Plan ASSESSMENT COVID-19 pneumonia Acute hypoxemic hypercapnic respiratory failure secondary to COVID infection, requiring NRM and BiPAP-resolved COPD Hypertension History of CVA PLAN OF CARE tele isolation O2 titrate to keep sat above 92% MDI Combivent prn continue steroid, Remdesivivr completed 03/14 empiric abx for superimposed pneumonia fup CXR ->with improvement get CXR in am fup with inflammatory markers, CRP down to normal this am DVT prophylaxis BCX NGTD rapid COVID 19 03/10 + Echo with pEF supportive care case discussed and evaluated by supervising physician Prabha Dewitt NP Mar 15, 2020 11:07
[2020-03-15 12:00] VITALS: BP 106/79
--- NOTE | 2020-03-15 12:46 | Internal Med Progress Note ---
Subjective Date of Service: Mar 15, 2020 Physician Name MarylouPablo Attending Physician Torres Saul MD Current Medications Medications (Trade) Dose Ordered Sig/Armand Route PRN Reason Start Time Stop Time Status Last Admin Dose Admin Acetaminophen (Tylenol) 650 mg Q4H PRN ORAL FEVER 03/10/20 07:30 04/09/20 07:29 03/15/20 07:42 Albuterol/ Ipratropium (Combivent Respimat) 1 puff Q4H PRN INH Shortness of Breath 03/11/20 20:00 04/10/20 19:59 03/14/20 05:04 Azithromycin 250 mg/Dextrose 275 ml @ 275 mls/hr Q24HRS IV 03/11/20 09:00 03/16/20 08:59 03/15/20 09:02 Ceftriaxone Sodium 1 gm/ Dextrose 55 ml @ 110 mls/hr Q24H IVPB 03/11/20 05:00 03/18/20 04:59 03/15/20 05:10 Dexamethasone Sodium Phosphate (Decadron 4mg/ml vial) 6 mg DAILY IVP 03/11/20 17:30 03/20/20 18:00 03/15/20 09:04 Dextrose (Dextrose 50%) 25 ml Q30M PRN IV Hypoglycemia 03/10/20 07:30 06/08/20 07:29 Dextrose (Dextrose 50%) 50 ml Q30M PRN IV Hypoglycemia 03/10/20 07:30 06/08/20 07:29 Gabapentin (Neurontin) 300 mg THREE TIMES A DAY ORAL 03/10/20 09:00 04/09/20 08:59 03/15/20 09:04 Heparin Sodium (Porcine) (Heparin 5000 units/ml) 5,000 units EVERY 12 HOURS SUBQ 03/10/20 21:00 04/24/20 20:59 03/15/20 09:03 Lorazepam (Ativan 2mg/ml 1ml) 1 mg Q4H PRN IV For Anxiety 03/11/20 16:30 03/18/20 16:29 03/13/20 03:33 Ondansetron HCl (Zofran) 4 mg Q6H PRN IVP Nausea & Vomiting 03/10/20 07:30 04/09/20 07:29 03/11/20 12:42 Polyethylene Glycol (Miralax) 17 gm DAILYPRN PRN ORAL Constipation 03/10/20 07:30 04/09/20 07:29 03/13/20 14:54 Allergies: Coded Allergies: PENICILLINS (Verified Allergy, Unknown, 03/10/20) PHENYTOIN (Verified Allergy, Unknown, 03/10/20) ROS Limited/Unobtainable: Yes Subjective 79 YO M admitted with shortness of breath. Now COVID 19 pneumonia. Cover for Int Med-Dr Saul. Objective Last Vital Signs Date Time Temp Pulse Resp B/P (MAP) Pulse Ox O2 Delivery O2 Flow Rate FiO2 03/15/20 09:00 Nasal Cannula 4.0 03/15/20 08:12 98.1 03/15/20 08:00 90 20 100/76 (84) 96 03/13/20 05:55 50 Laboratory Tests Test 03/15/20 06:01 White Blood Count 5.4 K/UL (4.8-10.8) Red Blood Count 4.83 M/UL (4.70-6.10) Hemoglobin 13.9 G/DL (14.2-18.0) L Hematocrit 43.0 % (42.0-52.0) Mean Corpuscular Volume 89 FL (80-99) Mean Corpuscular Hemoglobin 28.8 PG (27.0-31.0) Mean Corpuscular Hemoglobin Concent 32.4 G/DL (32.0-36.0) Red Cell Distribution Width 12.6 % (11.6-14.8) Platelet Count 311 K/UL (150-450) Mean Platelet Volume 4.9 FL (6.5-10.1) L Neutrophils (%) (Auto) 65.5 % (45.0-75.0) Lymphocytes (%) (Auto) 19.0 % (20.0-45.0) L Monocytes (%) (Auto) 14.3 % (1.0-10.0) H Eosinophils (%) (Auto) 0.2 % (0.0-3.0) Basophils (%) (Auto) 1.0 % (0.0-2.0) Sodium Level 144 MMOL/L (136-145) Potassium Level 3.8 MMOL/L (3.5-5.1) Chloride Level 102 MMOL/L (98-107) Carbon Dioxide Level 36 MMOL/L (21-32) H Anion Gap 6 mmol/L (5-15) Blood Urea Nitrogen 23 mg/dL (7-18) H Creatinine 0.8 MG/DL (0.55-1.30) Estimat Glomerular Filtration Rate > 60 mL/min (>60) Glucose Level 111 MG/DL (74-106) H Calcium Level 8.7 MG/DL (8.5-10.1) Ferritin 227 NG/ML (8-388) C-Reactive Protein, Quantitative 0.9 mg/dL (0.00-0.90) Intake and Output 03/14/20 03/15/20 19:00 07:00 Intake Total 800 ml Output Total 600 ml Balance 200 ml Intake Oral 800 ml Output Urine Total 600 ml # Voids 3 Objective PHYSICAL EXAMINATION: GENERAL: The patient is a well-developed, well-nourished male, thin appearing, in no apparent distress. HEENT: Eyes, pupils equal and responsive to light and accommodation. Extraocular movements are intact. NECK: Supple without lymphadenopathy. CHEST: BIPAP; Diffuse crackles on bilateral bases with expiratory wheezes, otherwise without rhonchi. CARDIOVASCULAR: Tachycardic, regular rhythm. S1-S2 are normal without murmurs, rubs, or gallops. ABDOMEN: Soft, nontender, and nondistended. Positive bowel sounds. No evidence of hepatosplenomegaly. Currently no rebound or guarding noted. EXTREMITIES: Negative for clubbing, cyanosis, or edema. RECTAL/GENITAL: Not performed. NEUROLOGIC: Cranial nerves II through XII are grossly intact without focal deficits. Motor strength is 5/5 bilaterally. Assessment/Plan Assessment/Plan ASSESSMENT: This is an 79-year-old male. 1. Respiratory failure. 2. COVID-19 positive. 3. Bilateral pneumonia. 4. Hypertension. 5. Congestive heart failure. 6. Chronic obstructive pulmonary disease. 7. History of prostate cancer. 8. Anemia. 9. Cerebrovascular disease, status post cerebrovascular accident. 10. Peripheral vascular disease. 11. Gastroesophageal reflux disease. 12. Major depression. 13. Seizure disorder. TREATMENT: 1. COVID-19 positive/pneumonia. Infectious disease=Dr. Lackey. Pulmonary/critical care= Dr. Sayra Fay. The patient is currently receiving: -Decadron IV Day 11/26. -ABX=ceftriaxone and azithromycin. -S/P Remdesivir 2. Congestive heart failure. Cardiology consultation has been obtained with Dr. Chaudhry 3. History of prostate cancer. 4. Chronic obstructive pulmonary disease. As above, a pulmonary consultation has been obtained with Dr. Sayra Fay. 5. Anemia. 6. Cerebrovascular disease, status post cerebrovascular accident. Continue apixaban as above. 7. Peripheral vascular disease. 8. Gastroesophageal reflux disease. The patient has been placed on Protonix. 9. Major depression. 10. Seizure disorder. 11. CODE STATUS: full code 12. DVT prophylaxis: Heparin subcu. Pablo Hickman MD Mar 15, 2020 12:46
[2020-03-15] MEDS: Miralax 17gm pkt ORAL PRN (13:12)
[2020-03-15 16:00] VITALS: BP 103/70
[2020-03-15 20:00] VITALS: BP 115/74
[2020-03-15] MEDS: LORazepam Inj 2mg/ml 1ml IV PRN (20:49)
[2020-03-15] MEDS ORDERED: NS 275ml ONE ×2 (21:19→21:22)
[2020-03-15] MEDS ORDERED: 1/2 NS 1000ml IV ONE (21:19)
[2020-03-15] MEDS ORDERED: Tubing IV Secondary IV ONE (21:19)
[2020-03-16] VITALS: BP 114/68
[2020-03-16 04:00] VITALS: BP 115/76
[2020-03-16] MEDS: cefTRIAXone 1 GM in D5W 55 ML IVPB SCH (05:00)
[2020-03-16] MEDS: LORazepam Inj 2mg/ml 1ml IV PRN ×2 (05:43→20:31)
[2020-03-16 07:26] LABS: BASOPHILS % (AUTO) 0.9 % (0.0-2.0); EOSINOPHILS % (AUTO) 0.3 % (0.0-3.0); HEMATOCRIT 43.1 % (42.0-52.0); HEMOGLOBIN 14.1 G/DL (14.2-18.0); LYMPHOCYTES % (AUTO) 14.2 % (20.0-45.0); MEAN CORPUSCULAR VOLUME 89 FL (80-99); MONOCYTES % (AUTO) 10.9 % (1.0-10.0); NEUTROPHILS % (AUTO) 73.7 % (45.0-75.0); PLATELET COUNT 331 K/UL (150-450); RED BLOOD COUNT 4.85 M/UL (4.70-6.10); RED CELL DISTRIBUTION WIDTH 12.5 % (11.6-14.8); WHITE BLOOD COUNT 7.6 K/UL (4.8-10.8)
[2020-03-16 07:29] LABS: ANION GAP 2 mmol/L (5-15); BLOOD UREA NITROGEN 22 mg/dL (7-18); CALCIUM 8.7 MG/DL (8.5-10.1); CARBON DIOXIDE 37 MMOL/L (21-32); CHLORIDE 104 MMOL/L (98-107); CREATININE 0.7 MG/DL (0.55-1.30); POTASSIUM 3.8 MMOL/L (3.5-5.1); SODIUM 143 MMOL/L (136-145)
[2020-03-16 08:00] VITALS: BP 131/61
[2020-03-16] MEDS: Heparin 5000 units/ml inj SUBQ SCH ×2 (09:09→20:12)
--- NOTE | 2020-03-16 09:52 | Infectious Diseases Prog Note ---
Assessment/Plan Assessment: COVID19 pneumonia Acute hypoxic/hypercapnic resp failure- sp VM> bipap -03/11 CXR: Suspect slight worsening of bilateral upper lobe right greater than left infiltrates, over one day -03/10 CXR: Possible right upper lobe infiltrate. COPD changes. Bilateral costophrenic angle blunting. Likely related to the hyperinflation but small effusions also possible. rapid COVID PCR + Afebrile Pancytopenia -u/a neg Mild AST elevation HTN COPD CVA/TIA [place] resident ([facility]) Plan: -Continue Ceftriaxone #7/7 -Decadron #7/10 - 03/14/20 SP Remdesivir #5 and Azithromycin #5 -Monitor CBC/CMP, temperatures -COVID19 isolation Thank you for this consultation. Will continue to follow along with you. Subjective Allergies: Coded Allergies: PENICILLINS (Verified Allergy, Unknown, 03/10/20) PHENYTOIN (Verified Allergy, Unknown, 03/10/20) Afebrile No Leukocytosis On NC 4L Objective Last 24 Hour Vital Signs Date Time Temp Pulse Resp B/P (MAP) Pulse Ox O2 Delivery O2 Flow Rate FiO2 03/16/20 08:00 85 03/16/20 08:00 97.8 61 19 131/61 (84) 97 03/16/20 06:22 79 20 140/76 96 03/16/20 05:43 85 20 145/75 96 03/16/20 04:00 78 03/16/20 04:00 98.2 75 20 115/76 (89) 99 03/16/20 00:00 73 03/16/20 00:00 97.7 75 20 114/68 (83) 99 03/15/20 21:19 73 20 115/74 98 03/15/20 21:00 Nasal Cannula 4.0 03/15/20 20:49 73 20 115/74 98 03/15/20 20:00 97.7 73 20 115/74 (88) 98 03/15/20 20:00 73 03/15/20 18:41 97.9 03/15/20 16:00 97.9 76 20 103/70 (81) 96 03/15/20 16:00 74 03/15/20 12:00 70 03/15/20 12:00 98.2 74 20 106/79 (88) 96 Height (Feet): 5 Height (Inches): 10.00 Weight (Pounds): 143 GENERAL: On NC 4L , awake and talking HEENT: NCAT, MMM, EOMI LUNGS: Equal rise and fall of chest B/L ABDOMEN: Soft, nondistended Laboratory Tests Test 03/16/20 06:40 White Blood Count 7.6 K/UL (4.8-10.8) Red Blood Count 4.85 M/UL (4.70-6.10) Hemoglobin 14.1 G/DL (14.2-18.0) L Hematocrit 43.1 % (42.0-52.0) Mean Corpuscular Volume 89 FL (80-99) Mean Corpuscular Hemoglobin 29.0 PG (27.0-31.0) Mean Corpuscular Hemoglobin Concent 32.7 G/DL (32.0-36.0) Red Cell Distribution Width 12.5 % (11.6-14.8) Platelet Count 331 K/UL (150-450) Mean Platelet Volume 5.0 FL (6.5-10.1) L Neutrophils (%) (Auto) 73.7 % (45.0-75.0) Lymphocytes (%) (Auto) 14.2 % (20.0-45.0) L Monocytes (%) (Auto) 10.9 % (1.0-10.0) H Eosinophils (%) (Auto) 0.3 % (0.0-3.0) Basophils (%) (Auto) 0.9 % (0.0-2.0) Sodium Level 143 MMOL/L (136-145) Potassium Level 3.8 MMOL/L (3.5-5.1) Chloride Level 104 MMOL/L (98-107) Carbon Dioxide Level 37 MMOL/L (21-32) H Anion Gap 2 mmol/L (5-15) L Blood Urea Nitrogen 22 mg/dL (7-18) H Creatinine 0.7 MG/DL (0.55-1.30) Estimat Glomerular Filtration Rate > 60 mL/min (>60) Glucose Level 108 MG/DL (74-106) H Calcium Level 8.7 MG/DL (8.5-10.1) Current Medications Medications (Trade) Dose Ordered Sig/Armand Route PRN Reason Start Time Stop Time Status Last Admin Dose Admin Acetaminophen (Tylenol) 650 mg Q4H PRN ORAL FEVER 03/10/20 07:30 04/09/20 07:29 03/15/20 18:18 Albuterol/ Ipratropium (Combivent Respimat) 1 puff Q4H PRN INH Shortness of Breath 03/11/20 20:00 04/10/20 19:59 03/14/20 05:04 Ceftriaxone Sodium 1 gm/ Dextrose 55 ml @ 110 mls/hr Q24H IVPB 03/11/20 05:00 03/18/20 04:59 03/16/20 05:00 Dexamethasone Sodium Phosphate (Decadron 4mg/ml vial) 6 mg DAILY IVP 03/11/20 17:30 03/20/20 18:00 03/16/20 08:56 Dextrose (Dextrose 50%) 25 ml Q30M PRN IV Hypoglycemia 03/10/20 07:30 06/08/20 07:29 Dextrose (Dextrose 50%) 50 ml Q30M PRN IV Hypoglycemia 03/10/20 07:30 06/08/20 07:29 Gabapentin (Neurontin) 300 mg THREE TIMES A DAY ORAL 03/10/20 09:00 04/09/20 08:59 03/16/20 08:56 Heparin Sodium (Porcine) (Heparin 5000 units/ml) 5,000 units EVERY 12 HOURS SUBQ 03/10/20 21:00 04/24/20 20:59 03/16/20 09:09 Lorazepam (Ativan 2mg/ml 1ml) 1 mg Q4H PRN IV For Anxiety 03/11/20 16:30 03/18/20 16:29 03/16/20 05:43 Ondansetron HCl (Zofran) 4 mg Q6H PRN IVP Nausea & Vomiting 03/10/20 07:30 04/09/20 07:29 03/11/20 12:42 Polyethylene Glycol (Miralax) 17 gm DAILYPRN PRN ORAL Constipation 03/10/20 07:30 04/09/20 07:29 03/15/20 13:12 Lalo Hewitt MD Mar 16, 2020 09:52
--- NOTE | 2020-03-16 11:06 | Pulmonology Progress Note ---
Subjective ROS Limited/Unobtainable: No Constitutional: Reports: no symptoms HEENT: Repors: no symptoms Allergies: Coded Allergies: PENICILLINS (Verified Allergy, Unknown, 03/10/20) PHENYTOIN (Verified Allergy, Unknown, 03/10/20) Objective Last 24 Hour Vital Signs Date Time Temp Pulse Resp B/P (MAP) Pulse Ox O2 Delivery O2 Flow Rate FiO2 03/16/20 09:00 Nasal Cannula 4.0 03/16/20 08:00 85 03/16/20 08:00 97.8 61 19 131/61 (84) 97 03/16/20 06:22 79 20 140/76 96 03/16/20 05:43 85 20 145/75 96 03/16/20 04:00 78 03/16/20 04:00 98.2 75 20 115/76 (89) 99 03/16/20 00:00 73 03/16/20 00:00 97.7 75 20 114/68 (83) 99 03/15/20 21:19 73 20 115/74 98 03/15/20 21:00 Nasal Cannula 4.0 03/15/20 20:49 73 20 115/74 98 03/15/20 20:00 97.7 73 20 115/74 (88) 98 03/15/20 20:00 73 03/15/20 18:41 97.9 03/15/20 16:00 97.9 76 20 103/70 (81) 96 03/15/20 16:00 74 03/15/20 12:00 70 03/15/20 12:00 98.2 74 20 106/79 (88) 96 Intake and Output 03/15/20 03/16/20 18:59 06:59 Intake Total 450 ml Output Total 600 ml 600 ml Balance -150 ml -600 ml Intake Oral 450 ml Output Urine Total 600 ml 600 ml General Appearance: WD/WN, other - elderly AA male bedridden in NAD HEENT: normocephalic, atraumatic Respiratory: chest wall non-tender, lungs clear Cardiovascular: normal peripheral pulses, normal rate - SR on tele Abdomen: normal bowel sounds, soft, non tender Genitourinary: normal external genitalia Extremities: no edema Skin: no rash Neurologic: abnormal gait, alert Musculoskeletal: atrophy - BLE Laboratory Tests 03/16/20 06:40: White Blood Count 7.6, Red Blood Count 4.85, Hemoglobin 14.1L, Hematocrit 43.1, Mean Corpuscular Volume 89, Mean Corpuscular Hemoglobin 29.0, Mean Corpuscular Hemoglobin Concent 32.7, Red Cell Distribution Width 12.5, Platelet Count 331, Mean Platelet Volume 5.0L, Neutrophils (%) (Auto) 73.7, Lymphocytes (%) (Auto) 14.2L, Monocytes (%) (Auto) 10.9H, Eosinophils (%) (Auto) 0.3, Basophils (%) (Auto) 0.9, Sodium Level 143, Potassium Level 3.8, Chloride Level 104, Carbon Dioxide Level 37H, Anion Gap 2L, Blood Urea Nitrogen 22H, Creatinine 0.7, Estimat Glomerular Filtration Rate > 60, Glucose Level 108H, Calcium Level 8.7 Current Medications Medications (Trade) Dose Ordered Sig/Armand Route PRN Reason Start Time Stop Time Status Last Admin Dose Admin Acetaminophen (Tylenol) 650 mg Q4H PRN ORAL FEVER 03/10/20 07:30 04/09/20 07:29 03/15/20 18:18 Albuterol/ Ipratropium (Combivent Respimat) 1 puff Q4H PRN INH Shortness of Breath 03/11/20 20:00 04/10/20 19:59 03/14/20 05:04 Ceftriaxone Sodium 1 gm/ Dextrose 55 ml @ 110 mls/hr Q24H IVPB 03/11/20 05:00 03/18/20 04:59 03/16/20 05:00 Dexamethasone Sodium Phosphate (Decadron 4mg/ml vial) 6 mg DAILY IVP 03/11/20 17:30 03/20/20 18:00 03/16/20 08:56 Dextrose (Dextrose 50%) 25 ml Q30M PRN IV Hypoglycemia 03/10/20 07:30 06/08/20 07:29 Dextrose (Dextrose 50%) 50 ml Q30M PRN IV Hypoglycemia 03/10/20 07:30 06/08/20 07:29 Gabapentin (Neurontin) 300 mg THREE TIMES A DAY ORAL 03/10/20 09:00 04/09/20 08:59 03/16/20 08:56 Heparin Sodium (Porcine) (Heparin 5000 units/ml) 5,000 units EVERY 12 HOURS SUBQ 03/10/20 21:00 11/6/20 20:59 03/16/20 09:09 Lorazepam (Ativan 2mg/ml 1ml) 1 mg Q4H PRN IV For Anxiety 03/11/20 16:30 03/18/20 16:29 03/16/20 05:43 Ondansetron HCl (Zofran) 4 mg Q6H PRN IVP Nausea & Vomiting 03/10/20 07:30 04/09/20 07:29 03/11/20 12:42 Polyethylene Glycol (Miralax) 17 gm DAILYPRN PRN ORAL Constipation 03/10/20 07:30 04/09/20 07:29 03/15/20 13:12 Assessment/Plan Problems: (1) Pneumonia due to COVID-19 virus (2) COPD (chronic obstructive pulmonary disease) (3) HTN (hypertension) (4) History of CVA (cerebrovascular accident) Assessment/Plan not eating well swallow study and calorie count on nasal cannula improving respiratory treatment titrate fio2 to sat of 92% check sputum iv abx Decadron respiratory isolation Sayra aFy MD Mar 16, 2020 11:06
[2020-03-16 12:00] VITALS: BP 113/74
[2020-03-16] MEDS ORDERED: Varibar Pudding 230ml MC PRN (14:00)
[2020-03-16] MEDS ORDERED: Varibar Nectar 240ml MC PRN (14:00)
[2020-03-16] MEDS ORDERED: Varibar Honey 250ml MC PRN (14:00)
[2020-03-16] MEDS ORDERED: Varibar Thin Liquid powder 148gm MC PRN (14:00)
--- NOTE | 2020-03-16 14:09 | Diagnostic Imaging Report ---
Indication: Shortness of breath Technique: One view of the chest Comparison: 03/12/2020 Findings: Right upper lobe infiltrate, bilateral hyperinflation, right costophrenic angle blunting is unchanged. The heart size is normal. Impression: Unchanged, over 4 days, findings as above.
[2020-03-16 16:00] VITALS: BP 112/74
--- NOTE | 2020-03-16 18:48 | Internal Med Progress Note ---
Subjective Date of Service: Mar 16, 2020 Physician Name MarylouPablo Attending Physician Torres Saul MD Current Medications Medications (Trade) Dose Ordered Sig/Armand Route PRN Reason Start Time Stop Time Status Last Admin Dose Admin Acetaminophen (Tylenol) 650 mg Q4H PRN ORAL FEVER 03/10/20 07:30 04/09/20 07:29 03/16/20 16:08 Albuterol/ Ipratropium (Combivent Respimat) 1 puff Q4H PRN INH Shortness of Breath 03/11/20 20:00 04/10/20 19:59 03/14/20 05:04 Barium Sulfate (Varibar Honey) 250 ml NOW PRN MC RAD 03/16/20 14:00 03/19/20 13:54 Barium Sulfate (Varibar Peever) 240 ml NOW PRN MC RAD 03/16/20 14:00 03/19/20 13:54 Barium Sulfate (Varibar Pudding) 230 ml NOW PRN MC RAD 03/16/20 14:00 03/19/20 13:54 Barium Sulfate (Varibar Thin Liquid powder) 148 gm NOW PRN MC RAD 03/16/20 14:00 03/19/20 13:54 Ceftriaxone Sodium 1 gm/ Dextrose 55 ml @ 110 mls/hr Q24H IVPB 03/11/20 05:00 03/18/20 04:59 03/16/20 05:00 Dexamethasone Sodium Phosphate (Decadron 4mg/ml vial) 6 mg DAILY IVP 03/11/20 17:30 03/20/20 18:00 03/16/20 08:56 Dextrose (Dextrose 50%) 25 ml Q30M PRN IV Hypoglycemia 03/10/20 07:30 06/08/20 07:29 Dextrose (Dextrose 50%) 50 ml Q30M PRN IV Hypoglycemia 03/10/20 07:30 06/08/20 07:29 Gabapentin (Neurontin) 300 mg THREE TIMES A DAY ORAL 03/10/20 09:00 04/09/20 08:59 03/16/20 18:02 Heparin Sodium (Porcine) (Heparin 5000 units/ml) 5,000 units EVERY 12 HOURS SUBQ 03/10/20 21:00 04/24/20 20:59 03/16/20 09:09 Lorazepam (Ativan 2mg/ml 1ml) 1 mg Q4H PRN IV For Anxiety 03/11/20 16:30 03/18/20 16:29 03/16/20 05:43 Ondansetron HCl (Zofran) 4 mg Q6H PRN IVP Nausea & Vomiting 03/10/20 07:30 04/09/20 07:29 03/11/20 12:42 Polyethylene Glycol (Miralax) 17 gm DAILYPRN PRN ORAL Constipation 03/10/20 07:30 04/09/20 07:29 03/15/20 13:12 Allergies: Coded Allergies: PENICILLINS (Verified Allergy, Unknown, 03/10/20) PHENYTOIN (Verified Allergy, Unknown, 03/10/20) ROS Limited/Unobtainable: Yes Subjective 79 YO M admitted with shortness of breath. Now COVID 19 pneumonia. Cover for Int Med-Dr Saul. Poor PO intake. Objective Last Vital Signs Date Time Temp Pulse Resp B/P (MAP) Pulse Ox O2 Delivery O2 Flow Rate FiO2 03/16/20 16:00 83 03/16/20 16:00 96.8 19 112/74 (87) 98 03/16/20 09:00 Nasal Cannula 4.0 03/13/20 05:55 50 Laboratory Tests Test 03/16/20 06:40 White Blood Count 7.6 K/UL (4.8-10.8) Red Blood Count 4.85 M/UL (4.70-6.10) Hemoglobin 14.1 G/DL (14.2-18.0) L Hematocrit 43.1 % (42.0-52.0) Mean Corpuscular Volume 89 FL (80-99) Mean Corpuscular Hemoglobin 29.0 PG (27.0-31.0) Mean Corpuscular Hemoglobin Concent 32.7 G/DL (32.0-36.0) Red Cell Distribution Width 12.5 % (11.6-14.8) Platelet Count 331 K/UL (150-450) Mean Platelet Volume 5.0 FL (6.5-10.1) L Neutrophils (%) (Auto) 73.7 % (45.0-75.0) Lymphocytes (%) (Auto) 14.2 % (20.0-45.0) L Monocytes (%) (Auto) 10.9 % (1.0-10.0) H Eosinophils (%) (Auto) 0.3 % (0.0-3.0) Basophils (%) (Auto) 0.9 % (0.0-2.0) Sodium Level 143 MMOL/L (136-145) Potassium Level 3.8 MMOL/L (3.5-5.1) Chloride Level 104 MMOL/L (98-107) Carbon Dioxide Level 37 MMOL/L (21-32) H Anion Gap 2 mmol/L (5-15) L Blood Urea Nitrogen 22 mg/dL (7-18) H Creatinine 0.7 MG/DL (0.55-1.30) Estimat Glomerular Filtration Rate > 60 mL/min (>60) Glucose Level 108 MG/DL (74-106) H Calcium Level 8.7 MG/DL (8.5-10.1) Intake and Output 03/15/20 03/16/20 19:00 07:00 Intake Total 450 ml Output Total 600 ml 600 ml Balance -150 ml -600 ml Intake Oral 450 ml Output Urine Total 600 ml 600 ml Objective PHYSICAL EXAMINATION: GENERAL: The patient is a well-developed, well-nourished male, thin appearing, in no apparent distress. HEENT: Eyes, pupils equal and responsive to light and accommodation. Extraocular movements are intact. NECK: Supple without lymphadenopathy. CHEST: BIPAP; Diffuse crackles on bilateral bases with expiratory wheezes, otherwise without rhonchi. CARDIOVASCULAR: Tachycardic, regular rhythm. S1-S2 are normal without murmurs, rubs, or gallops. ABDOMEN: Soft, nontender, and nondistended. Positive bowel sounds. No evidence of hepatosplenomegaly. Currently no rebound or guarding noted. EXTREMITIES: Negative for clubbing, cyanosis, or edema. RECTAL/GENITAL: Not performed. NEUROLOGIC: Cranial nerves II through XII are grossly intact without focal deficits. Motor strength is 5/5 bilaterally. Assessment/Plan Assessment/Plan ASSESSMENT: This is an 79-year-old male. 1. Respiratory failure. 2. COVID-19 positive. 3. Bilateral pneumonia. 4. Hypertension. 5. Congestive heart failure. 6. Chronic obstructive pulmonary disease. 7. History of prostate cancer. 8. Anemia. 9. Cerebrovascular disease, status post cerebrovascular accident. 10. Peripheral vascular disease. 11. Gastroesophageal reflux disease. 12. Major depression. 13. Seizure disorder. TREATMENT: 1. COVID-19 positive/pneumonia. Infectious disease=Dr. Lackey. Pulmonary/critical care= Dr. Sayra Fay. The patient is currently receiving: -Decadron IV Day 11/26. -ABX=ceftriaxone and azithromycin. -S/P Remdesivir 2. Congestive heart failure. Cardiology consultation has been obtained with Dr. Chaudhry 3. History of prostate cancer. 4. Chronic obstructive pulmonary disease. As above, a pulmonary consultation has been obtained with Dr. Sayra Fay. 5. Anemia. 6. Cerebrovascular disease, status post cerebrovascular accident. Continue apixaban as above. 7. Peripheral vascular disease. 8. Gastroesophageal reflux disease. The patient has been placed on Protonix. 9. Major depression. 10. Seizure disorder. 11. CODE STATUS: full code 12. DVT prophylaxis: Heparin subcu. 13. Await swallow eval and calorie count Pablo Hickman MD Mar 16, 2020 18:48
[2020-03-16 20:00] VITALS: BP 126/67
[2020-03-17] VITALS: BP 119/81
[2020-03-17 04:00] VITALS: BP 115/72
[2020-03-17] MEDS: cefTRIAXone 1 GM in D5W 55 ML IVPB SCH (05:54)
[2020-03-17 07:28] LABS: BASOPHILS % (AUTO) 0.8 % (0.0-2.0); EOSINOPHILS % (AUTO) 0.6 % (0.0-3.0); HEMATOCRIT 43.7 % (42.0-52.0); HEMOGLOBIN 14.2 G/DL (14.2-18.0); LYMPHOCYTES % (AUTO) 17.7 % (20.0-45.0); MEAN CORPUSCULAR VOLUME 88 FL (80-99); MONOCYTES % (AUTO) 11.5 % (1.0-10.0); NEUTROPHILS % (AUTO) 69.4 % (45.0-75.0); PLATELET COUNT 362 K/UL (150-450); RED BLOOD COUNT 4.95 M/UL (4.70-6.10); RED CELL DISTRIBUTION WIDTH 12.1 % (11.6-14.8); WHITE BLOOD COUNT 6.4 K/UL (4.8-10.8)
[2020-03-17 07:40] LABS: ALANINE AMINOTRANSFERASE 36 U/L (12-78); ALBUMIN/GLOBULIN RATIO 0.8 (1.0-2.7); ALKALINE PHOSPHATASE 61 U/L (46-116); ANION GAP 4 mmol/L (5-15); ASPARTATE AMINO TRANSFERASE 22 U/L (15-37); BILIRUBIN,TOTAL 0.5 MG/DL (0.2-1.0); BLOOD UREA NITROGEN 24 mg/dL (7-18); CALCIUM 8.8 MG/DL (8.5-10.1); CARBON DIOXIDE 36 MMOL/L (21-32); CHLORIDE 102 MMOL/L (98-107); CREATININE 0.5 MG/DL (0.55-1.30); PHOSPHORUS 2.4 MG/DL (2.5-4.9); POTASSIUM 3.8 MMOL/L (3.5-5.1); SODIUM 142 MMOL/L (136-145)
[2020-03-17 08:00] VITALS: BP 102/67
[2020-03-17] MEDS: Heparin 5000 units/ml inj SUBQ SCH ×2 (09:08→20:38)
--- NOTE | 2020-03-17 09:57 | Infectious Diseases Prog Note ---
Assessment/Plan Assessment: COVID19 pneumonia Acute hypoxic/hypercapnic resp failure- sp VM> bipap -03/11 CXR: Suspect slight worsening of bilateral upper lobe right greater than left infiltrates, over one day -03/10 CXR: Possible right upper lobe infiltrate. COPD changes. Bilateral costophrenic angle blunting. Likely related to the hyperinflation but small effusions also possible. rapid COVID PCR + Afebrile Pancytopenia -u/a neg Mild AST elevation HTN COPD CVA/TIA [place] resident ([facility]) Plan: -Decadron #8/10 - 03/16/20 SP Ceftriaxone #7 - 03/14/20 SP Remdesivir #5 and Azithromycin #5 -Monitor CBC/CMP, temperatures -COVID19 isolation Thank you for this consultation. Will continue to follow along with you. Subjective Allergies: Coded Allergies: PENICILLINS (Verified Allergy, Unknown, 03/10/20) PHENYTOIN (Verified Allergy, Unknown, 03/10/20) Afebrile No Leukocytosis On NC 4L MISTI Objective Last 24 Hour Vital Signs Date Time Temp Pulse Resp B/P (MAP) Pulse Ox O2 Delivery O2 Flow Rate FiO2 03/17/20 08:00 97.5 83 19 102/67 (79) 97 03/17/20 07:00 83 20 97 Nasal Cannula 4.0 36 03/17/20 07:00 97 Nasal Cannula 4.0 36 03/17/20 04:00 99.1 77 16 115/72 (86) 93 03/17/20 04:00 82 03/17/20 00:00 98.5 77 14 119/81 (94) 95 03/17/20 00:00 79 03/16/20 21:39 68 16 122/64 94 03/16/20 21:00 Nasal Cannula 4.0 03/16/20 20:31 86 18 126/67 95 03/16/20 20:01 95 Nasal Cannula 4.0 36 03/16/20 20:01 79 20 95 Nasal Cannula 4.0 36 03/16/20 20:00 83 03/16/20 20:00 96.7 68 18 126/67 (86) 95 03/16/20 16:00 83 03/16/20 16:00 96.8 72 19 112/74 (87) 98 03/16/20 12:00 86 03/16/20 12:00 98.7 64 20 113/74 (87) 100 Height (Feet): 5 Height (Inches): 10.00 Weight (Pounds): 143 GENERAL: On NC 4L HEENT: NCAT, MMM, EOMI LUNGS: Equal rise and fall of chest B/L ABDOMEN: Soft, nondistended Microbiology Date/Time Source Procedure Growth Status 03/16/20 07:20 Sputum Gram Stain - Final Resulted 03/16/20 07:20 Sputum Sputum Culture Pending Resulted Laboratory Tests Test 03/17/20 05:44 03/17/20 06:13 03/17/20 06:29 White Blood Count 6.4 K/UL (4.8-10.8) Red Blood Count 4.95 M/UL (4.70-6.10) Hemoglobin 14.2 G/DL (14.2-18.0) Hematocrit 43.7 % (42.0-52.0) Mean Corpuscular Volume 88 FL (80-99) Mean Corpuscular Hemoglobin 28.8 PG (27.0-31.0) Mean Corpuscular Hemoglobin Concent 32.6 G/DL (32.0-36.0) Red Cell Distribution Width 12.1 % (11.6-14.8) Platelet Count 362 K/UL (150-450) Mean Platelet Volume 5.2 FL (6.5-10.1) L Neutrophils (%) (Auto) 69.4 % (45.0-75.0) Lymphocytes (%) (Auto) 17.7 % (20.0-45.0) L Monocytes (%) (Auto) 11.5 % (1.0-10.0) H Eosinophils (%) (Auto) 0.6 % (0.0-3.0) Basophils (%) (Auto) 0.8 % (0.0-2.0) Erythrocyte Sedimentation Rate 33 MM/HR (0-20) H Sodium Level 142 MMOL/L (136-145) Potassium Level 3.8 MMOL/L (3.5-5.1) Chloride Level 102 MMOL/L (98-107) Carbon Dioxide Level 36 MMOL/L (21-32) H Anion Gap 4 mmol/L (5-15) L Blood Urea Nitrogen 24 mg/dL (7-18) H Creatinine 0.5 MG/DL (0.55-1.30) L Estimat Glomerular Filtration Rate > 60 mL/min (>60) Glucose Level 93 MG/DL (74-106) Calcium Level 8.8 MG/DL (8.5-10.1) Phosphorus Level 2.4 MG/DL (2.5-4.9) L Magnesium Level 2.3 MG/DL (1.8-2.4) Total Bilirubin 0.5 MG/DL (0.2-1.0) Aspartate Amino Transf (AST/SGOT) 22 U/L (15-37) Alanine Aminotransferase (ALT/SGPT) 36 U/L (12-78) Alkaline Phosphatase 61 U/L (46-116) C-Reactive Protein, Quantitative 1.4 mg/dL (0.00-0.90) H Total Protein 6.8 G/DL (6.4-8.2) Albumin 3.0 G/DL (3.4-5.0) L Globulin 3.8 g/dL Albumin/Globulin Ratio 0.8 (1.0-2.7) L POC Whole Blood Glucose 88 MG/DL (74-106) Pending Current Medications Medications (Trade) Dose Ordered Sig/Armand Route PRN Reason Start Time Stop Time Status Last Admin Dose Admin Acetaminophen (Tylenol) 650 mg Q4H PRN ORAL FEVER 03/10/20 07:30 04/09/20 07:29 03/17/20 01:07 Albuterol/ Ipratropium (Combivent Respimat) 1 puff Q4H PRN INH Shortness of Breath 03/11/20 20:00 04/10/20 19:59 03/14/20 05:04 Barium Sulfate (Varibar Honey) 250 ml NOW PRN RAD 03/16/20 14:00 03/19/20 13:54 Barium Sulfate (Varibar [place]) 240 ml NOW PRN RAD 03/16/20 14:00 03/19/20 13:54 Barium Sulfate (Varibar Pudding) 230 ml NOW PRN RAD 03/16/20 14:00 03/19/20 13:54 Barium Sulfate (Varibar Thin Liquid powder) 148 gm NOW PRN RAD 03/16/20 14:00 03/19/20 13:54 Ceftriaxone Sodium 1 gm/ Dextrose 55 ml @ 110 mls/hr Q24H IVPB 03/11/20 05:00 03/18/20 04:59 03/17/20 05:54 Dexamethasone Sodium Phosphate (Decadron 4mg/ml vial) 6 mg DAILY IVP 03/11/20 17:30 03/20/20 18:00 03/17/20 09:07 Dextrose (Dextrose 50%) 25 ml Q30M PRN IV Hypoglycemia 03/10/20 07:30 06/08/20 07:29 Dextrose (Dextrose 50%) 50 ml Q30M PRN IV Hypoglycemia 03/10/20 07:30 06/08/20 07:29 Gabapentin (Neurontin) 300 mg THREE TIMES A DAY ORAL 03/10/20 09:00 04/09/20 08:59 03/17/20 09:07 Heparin Sodium (Porcine) (Heparin 5000 units/ml) 5,000 units EVERY 12 HOURS SUBQ 03/10/20 21:00 04/24/20 20:59 03/17/20 09:08 Lorazepam (Ativan 2mg/ml 1ml) 1 mg Q4H PRN IV For Anxiety 03/11/20 16:30 03/18/20 16:29 03/16/20 20:31 Ondansetron HCl (Zofran) 4 mg Q6H PRN IVP Nausea & Vomiting 03/10/20 07:30 04/09/20 07:29 03/11/20 12:42 Polyethylene Glycol (Miralax) 17 gm DAILYPRN PRN ORAL Constipation 03/10/20 07:30 04/09/20 07:29 03/15/20 13:12 Lalo Hewitt MD Mar 17, 2020 09:57
--- NOTE | 2020-03-17 10:21 | Diagnostic Imaging Report ---
Indication: Reason For Exam: [id number] Technique: Single AP view of the chest. Comparison: Chest radiograph dated 03/08/2020 Findings: The cardiomediastinal silhouette is unchanged in appearance. Lungs are again noted be hyperinflated, with blunting of the costophrenic angles. Redemonstration of right upper lobe airspace opacity. No new airspace consolidation. No pneumothorax. IMPRESSION: No significant change from prior examination.
[2020-03-17 12:00] VITALS: BP 103/76
--- NOTE | 2020-03-17 13:00 | Pulmonology Progress Note ---
Subjective ROS Limited/Unobtainable: Yes Constitutional: Reports: no symptoms HEENT: Repors: no symptoms Allergies: Coded Allergies: PENICILLINS (Verified Allergy, Unknown, 03/10/20) PHENYTOIN (Verified Allergy, Unknown, 03/10/20) Objective Last 24 Hour Vital Signs Date Time Temp Pulse Resp B/P (MAP) Pulse Ox O2 Delivery O2 Flow Rate FiO2 03/17/20 12:00 98.1 67 18 103/76 (85) 97 03/17/20 09:00 Nasal Cannula 4.0 03/17/20 08:00 97.5 83 19 102/67 (79) 97 03/17/20 07:46 82 03/17/20 07:00 83 20 97 Nasal Cannula 4.0 36 03/17/20 07:00 97 Nasal Cannula 4.0 36 03/17/20 04:00 99.1 77 16 115/72 (86) 93 03/17/20 04:00 82 03/17/20 00:00 98.5 77 14 119/81 (94) 95 03/17/20 00:00 79 03/16/20 21:39 68 16 122/64 94 03/16/20 21:00 Nasal Cannula 4.0 03/16/20 20:31 86 18 126/67 95 03/16/20 20:01 95 Nasal Cannula 4.0 36 03/16/20 20:01 79 20 95 Nasal Cannula 4.0 36 03/16/20 20:00 83 03/16/20 20:00 96.7 68 18 126/67 (86) 95 03/16/20 16:00 83 03/16/20 16:00 96.8 72 19 112/74 (87) 98 Intake and Output 03/16/20 03/17/20 19:00 07:00 Intake Total 240 ml Balance 240 ml Intake Oral 240 ml # Voids 4 General Appearance: WD/WN, other - elderly AA male bedridden in NAD HEENT: normocephalic, atraumatic Respiratory: chest wall non-tender, lungs clear Cardiovascular: normal peripheral pulses, normal rate - SR on tele Abdomen: normal bowel sounds, soft, non tender Genitourinary: normal external genitalia Extremities: no edema Skin: no rash Neurologic: abnormal gait, alert Musculoskeletal: atrophy - BLE Microbiology Date/Time Source Procedure Growth Status 03/16/20 07:20 Sputum Gram Stain - Final Resulted 03/16/20 07:20 Sputum Sputum Culture Pending Resulted Laboratory Tests 03/17/20 05:44: White Blood Count 6.4, Red Blood Count 4.95, Hemoglobin 14.2, Hematocrit 43.7, Mean Corpuscular Volume 88, Mean Corpuscular Hemoglobin 28.8, Mean Corpuscular Hemoglobin Concent 32.6, Red Cell Distribution Width 12.1, Platelet Count 362, Mean Platelet Volume 5.2L, Neutrophils (%) (Auto) 69.4, Lymphocytes (%) (Auto) 17.7L, Monocytes (%) (Auto) 11.5H, Eosinophils (%) (Auto) 0.6, Basophils (%) (Auto) 0.8, Erythrocyte Sedimentation Rate 33H, Sodium Level 142, Potassium Level 3.8, Chloride Level 102, Carbon Dioxide Level 36H, Anion Gap 4L, Blood Urea Nitrogen 24H, Creatinine 0.5L, Estimat Glomerular Filtration Rate > 60, Glucose Level 93, Calcium Level 8.8, Phosphorus Level 2.4L, Magnesium Level 2.3, Total Bilirubin 0.5, Aspartate Amino Transf (AST/SGOT) 22, Alanine Aminotransferase (ALT/SGPT) 36, Alkaline Phosphatase 61, C-Reactive Protein, Quantitative 1.4H, Total Protein 6.8, Albumin 3.0L, Globulin 3.8, Albumin/Globulin Ratio 0.8L 03/17/20 06:13: POC Whole Blood Glucose 88 03/17/20 06:29: POC Whole Blood Glucose [Pending] Current Medications Medications (Trade) Dose Ordered Sig/Armand Route PRN Reason Start Time Stop Time Status Last Admin Dose Admin Acetaminophen (Tylenol) 650 mg Q4H PRN ORAL FEVER 03/10/20 07:30 04/09/20 07:29 03/17/20 01:07 Albuterol/ Ipratropium (Combivent Respimat) 1 puff Q4H PRN INH Shortness of Breath 03/11/20 20:00 04/10/20 19:59 03/14/20 05:04 Barium Sulfate (Varibar [place]) 250 ml NOW PRN MC RAD 03/16/20 14:00 03/19/20 13:54 Barium Sulfate (Varibar [place]) 240 ml NOW PRN MC RAD 03/16/20 14:00 03/19/20 13:54 Barium Sulfate (Varibar Pudding) 230 ml NOW PRN RAD 03/16/20 14:00 03/19/20 13:54 Barium Sulfate (Varibar Thin Liquid powder) 148 gm NOW PRN RAD 03/16/20 14:00 03/19/20 13:54 Dexamethasone Sodium Phosphate (Decadron 4mg/ml vial) 6 mg DAILY IVP 03/11/20 17:30 03/20/20 18:00 03/17/20 09:07 Dextrose (Dextrose 50%) 25 ml Q30M PRN IV Hypoglycemia 03/10/20 07:30 06/08/20 07:29 Dextrose (Dextrose 50%) 50 ml Q30M PRN IV Hypoglycemia 03/10/20 07:30 06/08/20 07:29 Gabapentin (Neurontin) 300 mg THREE TIMES A DAY ORAL 03/10/20 09:00 04/09/20 08:59 03/17/20 09:07 Heparin Sodium (Porcine) (Heparin 5000 units/ml) 5,000 units EVERY 12 HOURS SUBQ 03/10/20 21:00 04/24/20 20:59 03/17/20 09:08 Lorazepam (Ativan 2mg/ml 1ml) 1 mg Q4H PRN IV For Anxiety 03/11/20 16:30 03/18/20 16:29 03/16/20 20:31 Ondansetron HCl (Zofran) 4 mg Q6H PRN IVP Nausea & Vomiting 03/10/20 07:30 04/09/20 07:29 03/11/20 12:42 Polyethylene Glycol (Miralax) 17 gm DAILYPRN PRN ORAL Constipation 03/10/20 07:30 04/09/20 07:29 03/15/20 13:12 Assessment/Plan Problems: (1) Pneumonia due to COVID-19 virus (2) COPD (chronic obstructive pulmonary disease) (3) HTN (hypertension) (4) History of CVA (cerebrovascular accident) Assessment/Plan not eating well swallow study and calorie count on nasal cannula improving respiratory treatment titrate fio2 to sat of 92% check sputum Decadron respiratory isolation Sayra Fay MD Mar 17, 2020 13:00
[2020-03-17 16:00] VITALS: BP 110/77
--- NOTE | 2020-03-17 16:51 | Internal Med Progress Note ---
Subjective Date of Service: Mar 17, 2020 Physician Name Pablo Hickman Attending Physician Torres Saul MD Current Medications Medications (Trade) Dose Ordered Sig/Armand Route PRN Reason Start Time Stop Time Status Last Admin Dose Admin Acetaminophen (Tylenol) 650 mg Q4H PRN ORAL FEVER 03/10/20 07:30 04/09/20 07:29 03/17/20 01:07 Albuterol/ Ipratropium (Combivent Respimat) 1 puff Q4H PRN INH Shortness of Breath 03/11/20 20:00 04/10/20 19:59 03/14/20 05:04 Barium Sulfate (Varibar [place]) 250 ml NOW PRN MC RAD 03/16/20 14:00 03/19/20 13:54 Barium Sulfate (Varibar [place]) 240 ml NOW PRN MC RAD 03/16/20 14:00 03/19/20 13:54 Barium Sulfate (Varibar Pudding) 230 ml NOW PRN RAD 03/16/20 14:00 03/19/20 13:54 Barium Sulfate (Varibar Thin Liquid powder) 148 gm NOW PRN MC RAD 03/16/20 14:00 03/19/20 13:54 Dexamethasone Sodium Phosphate (Decadron 4mg/ml vial) 6 mg DAILY IVP 03/11/20 17:30 03/20/20 18:00 03/17/20 09:07 Dextrose (Dextrose 50%) 25 ml Q30M PRN IV Hypoglycemia 03/10/20 07:30 06/08/20 07:29 Dextrose (Dextrose 50%) 50 ml Q30M PRN IV Hypoglycemia 03/10/20 07:30 06/08/20 07:29 Gabapentin (Neurontin) 300 mg THREE TIMES A DAY ORAL 03/10/20 09:00 04/09/20 08:59 03/17/20 13:13 Heparin Sodium (Porcine) (Heparin 5000 units/ml) 5,000 units EVERY 12 HOURS SUBQ 03/10/20 21:00 04/24/20 20:59 03/17/20 09:08 Lorazepam (Ativan 2mg/ml 1ml) 1 mg Q4H PRN IV For Anxiety 03/11/20 16:30 03/18/20 16:29 03/16/20 20:31 Ondansetron HCl (Zofran) 4 mg Q6H PRN IVP Nausea & Vomiting 03/10/20 07:30 04/09/20 07:29 03/11/20 12:42 Polyethylene Glycol (Miralax) 17 gm DAILYPRN PRN ORAL Constipation 03/10/20 07:30 04/09/20 07:29 03/15/20 13:12 Allergies: Coded Allergies: PENICILLINS (Verified Allergy, Unknown, 03/10/20) PHENYTOIN (Verified Allergy, Unknown, 03/10/20) ROS Limited/Unobtainable: Yes Subjective 79 YO M admitted with shortness of breath. Now COVID 19 pneumonia. Cover for Int Med-Dr Saul. Poor PO intake. Objective Last Vital Signs Date Time Temp Pulse Resp B/P (MAP) Pulse Ox O2 Delivery O2 Flow Rate FiO2 03/17/20 12:00 98.1 67 18 103/76 (85) 97 03/17/20 09:00 Nasal Cannula 4.0 03/17/20 07:00 36 Laboratory Tests Test 03/17/20 05:44 03/17/20 06:13 03/17/20 06:29 White Blood Count 6.4 K/UL (4.8-10.8) Red Blood Count 4.95 M/UL (4.70-6.10) Hemoglobin 14.2 G/DL (14.2-18.0) Hematocrit 43.7 % (42.0-52.0) Mean Corpuscular Volume 88 FL (80-99) Mean Corpuscular Hemoglobin 28.8 PG (27.0-31.0) Mean Corpuscular Hemoglobin Concent 32.6 G/DL (32.0-36.0) Red Cell Distribution Width 12.1 % (11.6-14.8) Platelet Count 362 K/UL (150-450) Mean Platelet Volume 5.2 FL (6.5-10.1) L Neutrophils (%) (Auto) 69.4 % (45.0-75.0) Lymphocytes (%) (Auto) 17.7 % (20.0-45.0) L Monocytes (%) (Auto) 11.5 % (1.0-10.0) H Eosinophils (%) (Auto) 0.6 % (0.0-3.0) Basophils (%) (Auto) 0.8 % (0.0-2.0) Erythrocyte Sedimentation Rate 33 MM/HR (0-20) H Sodium Level 142 MMOL/L (136-145) Potassium Level 3.8 MMOL/L (3.5-5.1) Chloride Level 102 MMOL/L (98-107) Carbon Dioxide Level 36 MMOL/L (21-32) H Anion Gap 4 mmol/L (5-15) L Blood Urea Nitrogen 24 mg/dL (7-18) H Creatinine 0.5 MG/DL (0.55-1.30) L Estimat Glomerular Filtration Rate > 60 mL/min (>60) Glucose Level 93 MG/DL (74-106) Calcium Level 8.8 MG/DL (8.5-10.1) Phosphorus Level 2.4 MG/DL (2.5-4.9) L Magnesium Level 2.3 MG/DL (1.8-2.4) Total Bilirubin 0.5 MG/DL (0.2-1.0) Aspartate Amino Transf (AST/SGOT) 22 U/L (15-37) Alanine Aminotransferase (ALT/SGPT) 36 U/L (12-78) Alkaline Phosphatase 61 U/L (46-116) C-Reactive Protein, Quantitative 1.4 mg/dL (0.00-0.90) H Total Protein 6.8 G/DL (6.4-8.2) Albumin 3.0 G/DL (3.4-5.0) L Globulin 3.8 g/dL Albumin/Globulin Ratio 0.8 (1.0-2.7) L POC Whole Blood Glucose 88 MG/DL (74-106) Pending Microbiology Date/Time Source Procedure Growth Status 03/16/20 07:20 Sputum Gram Stain - Final Resulted 03/16/20 07:20 Sputum Sputum Culture Pending Resulted Intake and Output 03/16/20 03/17/20 19:00 07:00 Intake Total 240 ml Balance 240 ml Intake Oral 240 ml # Voids 4 Objective PHYSICAL EXAMINATION: GENERAL: The patient is a well-developed, well-nourished male, thin appearing, in no apparent distress. HEENT: Eyes, pupils equal and responsive to light and accommodation. Extraocular movements are intact. NECK: Supple without lymphadenopathy. CHEST: Nasal canula; Diffuse crackles on bilateral bases with expiratory wheezes, otherwise without rhonchi. CARDIOVASCULAR: Tachycardic, regular rhythm. S1-S2 are normal without murmurs, rubs, or gallops. ABDOMEN: Soft, nontender, and nondistended. Positive bowel sounds. No evidence of hepatosplenomegaly. Currently no rebound or guarding noted. EXTREMITIES: Negative for clubbing, cyanosis, or edema. RECTAL/GENITAL: Not performed. NEUROLOGIC: Cranial nerves II through XII are grossly intact without focal deficits. Motor strength is 5/5 bilaterally. Assessment/Plan Assessment/Plan ASSESSMENT: This is an 79-year-old male. 1. Respiratory failure. 2. COVID-19 positive. 3. Bilateral pneumonia. 4. Hypertension. 5. Congestive heart failure. 6. Chronic obstructive pulmonary disease. 7. History of prostate cancer. 8. Anemia. 9. Cerebrovascular disease, status post cerebrovascular accident. 10. Peripheral vascular disease. 11. Gastroesophageal reflux disease. 12. Major depression. 13. Seizure disorder. TREATMENT: 1. COVID-19 positive/pneumonia. Infectious disease=Dr. Lackey. Pulmonary/critical care= Dr. Sayra Fay. The patient is currently receiving: -Decadron IV Day 11/26. -ABX=S/P ceftriaxone and azithromycin. -S/P Remdesivir 2. Congestive heart failure. Cardiology consultation has been obtained with Dr. Chaudhry 3. History of prostate cancer. 4. Chronic obstructive pulmonary disease. As above, a pulmonary consultation has been obtained with Dr. Sayra Fay. 5. Anemia. 6. Cerebrovascular disease, status post cerebrovascular accident. Continue apixaban as above. 7. Peripheral vascular disease. 8. Gastroesophageal reflux disease. The patient has been placed on Protonix. 9. Major depression. 10. Seizure disorder. 11. CODE STATUS: full code 12. DVT prophylaxis: Heparin subcu. 13. Await swallow eval and calorie count Pablo Hickman MD Mar 17, 2020 16:51
[2020-03-17 20:00] VITALS: BP 108/78
[2020-03-18] VITALS: BP 134/78
[2020-03-18 04:00] VITALS: BP 104/67
[2020-03-18 08:00] VITALS: BP 119/55
--- NOTE | 2020-03-18 08:52 | Pulmonology Progress Note ---
Subjective ROS Limited/Unobtainable: Yes Constitutional: Reports: no symptoms HEENT: Repors: no symptoms Allergies: Coded Allergies: PENICILLINS (Verified Allergy, Unknown, 03/10/20) PHENYTOIN (Verified Allergy, Unknown, 03/10/20) Objective Last 24 Hour Vital Signs Date Time Temp Pulse Resp B/P (MAP) Pulse Ox O2 Delivery O2 Flow Rate FiO2 03/18/20 08:04 Nasal Cannula 4.0 03/18/20 08:00 72 03/18/20 08:00 96.3 79 18 119/55 (76) 100 03/18/20 04:00 75 03/18/20 04:00 97.7 74 18 104/67 (79) 98 03/18/20 00:00 76 03/18/20 00:00 97.0 75 16 134/78 (96) 99 03/17/20 21:00 Nasal Cannula 4.0 03/17/20 20:00 79 03/17/20 20:00 98.2 83 18 108/78 (88) 97 03/17/20 19:25 85 20 96 Nasal Cannula 4.0 36 03/17/20 19:25 96 Nasal Cannula 4.0 36 03/17/20 16:35 80 03/17/20 16:00 97.5 92 19 110/77 (88) 97 03/17/20 12:00 98.1 67 18 103/76 (85) 97 03/17/20 11:40 79 03/17/20 09:00 Nasal Cannula 4.0 Intake and Output 03/17/20 03/18/20 18:59 06:59 Intake Total 120 ml Output Total 1200 ml 200 ml Balance -1080 ml -200 ml Intake Oral 120 ml Output Urine Total 1200 ml 200 ml # Voids 3 3 General Appearance: WD/WN, other - elderly AA male bedridden in NAD HEENT: normocephalic, atraumatic Respiratory: chest wall non-tender, lungs clear Cardiovascular: normal peripheral pulses, normal rate - SR on tele Abdomen: normal bowel sounds, soft, non tender Genitourinary: normal external genitalia Extremities: no edema Skin: no rash Neurologic: abnormal gait, alert Musculoskeletal: atrophy - BLE Microbiology Date/Time Source Procedure Growth Status 03/16/20 07:20 Sputum Gram Stain - Final Resulted 03/16/20 07:20 Sputum Sputum Culture Pending Resulted Current Medications Medications (Trade) Dose Ordered Sig/Armand Route PRN Reason Start Time Stop Time Status Last Admin Dose Admin Acetaminophen (Tylenol) 650 mg Q4H PRN ORAL FEVER 03/10/20 07:30 04/09/20 07:29 03/17/20 01:07 Albuterol/ Ipratropium (Combivent Respimat) 1 puff Q4H PRN INH Shortness of Breath 03/11/20 20:00 04/10/20 19:59 03/14/20 05:04 Barium Sulfate (Varibar Honey) 250 ml NOW PRN RAD 03/16/20 14:00 03/19/20 13:54 Barium Sulfate (Varibar [place]) 240 ml NOW PRN RAD 03/16/20 14:00 03/19/20 13:54 Barium Sulfate (Varibar Pudding) 230 ml NOW PRN RAD 03/16/20 14:00 03/19/20 13:54 Barium Sulfate (Varibar Thin Liquid powder) 148 gm NOW PRN RAD 03/16/20 14:00 03/19/20 13:54 Dexamethasone Sodium Phosphate (Decadron 4mg/ml vial) 6 mg DAILY IVP 03/11/20 17:30 03/20/20 18:00 03/17/20 09:07 Dextrose (Dextrose 50%) 25 ml Q30M PRN IV Hypoglycemia 03/10/20 07:30 06/08/20 07:29 Dextrose (Dextrose 50%) 50 ml Q30M PRN IV Hypoglycemia 03/10/20 07:30 06/08/20 07:29 Gabapentin (Neurontin) 300 mg THREE TIMES A DAY ORAL 03/10/20 09:00 04/09/20 08:59 03/17/20 17:40 Heparin Sodium (Porcine) (Heparin 5000 units/ml) 5,000 units EVERY 12 HOURS SUBQ 03/10/20 21:00 04/24/20 20:59 03/17/20 20:38 Lorazepam (Ativan 2mg/ml 1ml) 1 mg Q4H PRN IV For Anxiety 03/11/20 16:30 03/18/20 16:29 03/16/20 20:31 Ondansetron HCl (Zofran) 4 mg Q6H PRN IVP Nausea & Vomiting 03/10/20 07:30 04/09/20 07:29 03/11/20 12:42 Polyethylene Glycol (Miralax) 17 gm DAILYPRN PRN ORAL Constipation 03/10/20 07:30 04/09/20 07:29 03/15/20 13:12 Assessment/Plan Problems: (1) Pneumonia due to COVID-19 virus (2) COPD (chronic obstructive pulmonary disease) (3) HTN (hypertension) (4) History of CVA (cerebrovascular accident) Assessment/Plan non-resolving RUL infiltrate on CXR will get CT chest to assess the findings not eating well swallow study and calorie count on nasal cannula improving respiratory treatment titrate fio2 to sat of 92% check sputum Decadron respiratory isolation Sayra Fay MD Mar 18, 2020 08:52
[2020-03-18] MEDS: Heparin 5000 units/ml inj SUBQ SCH ×2 (09:00→21:13)
--- NOTE | 2020-03-18 09:53 | Infectious Diseases Prog Note ---
Assessment/Plan Assessment: COVID19 pneumonia Acute hypoxic/hypercapnic resp failure- sp VM> bipap -03/11 CXR: Suspect slight worsening of bilateral upper lobe right greater than left infiltrates, over one day -03/10 CXR: Possible right upper lobe infiltrate. COPD changes. Bilateral costophrenic angle blunting. Likely related to the hyperinflation but small effusions also possible. rapid COVID PCR + Afebrile Pancytopenia -u/a neg Mild AST elevation HTN COPD CVA/TIA [place] resident ([facility]) Plan: -Decadron #9/10 - 03/16/20 SP Ceftriaxone #7 - 03/14/20 SP Remdesivir #5 and Azithromycin #5 -Monitor CBC/CMP, temperatures -COVID19 isolation Thank you for this consultation. Will continue to follow along with you. Subjective Allergies: Coded Allergies: PENICILLINS (Verified Allergy, Unknown, 03/10/20) PHENYTOIN (Verified Allergy, Unknown, 03/10/20) Afebrile No Leukocytosis Still on NC 4L per patient this is his baseline Objective Last 24 Hour Vital Signs Date Time Temp Pulse Resp B/P (MAP) Pulse Ox O2 Delivery O2 Flow Rate FiO2 03/18/20 09:28 96 Nasal Cannula 4.0 36 03/18/20 09:28 78 16 97 Nasal Cannula 4.0 36 03/18/20 08:04 Nasal Cannula 4.0 03/18/20 08:00 72 03/18/20 08:00 96.3 79 18 119/55 (76) 100 03/18/20 04:00 75 03/18/20 04:00 97.7 74 18 104/67 (79) 98 03/18/20 00:00 76 03/18/20 00:00 97.0 75 16 134/78 (96) 99 03/17/20 21:00 Nasal Cannula 4.0 03/17/20 20:00 79 03/17/20 20:00 98.2 83 18 108/78 (88) 97 03/17/20 19:25 85 20 96 Nasal Cannula 4.0 36 03/17/20 19:25 96 Nasal Cannula 4.0 36 03/17/20 16:35 80 03/17/20 16:00 97.5 92 19 110/77 (88) 97 03/17/20 12:00 98.1 67 18 103/76 (85) 97 03/17/20 11:40 79 Height (Feet): 5 Height (Inches): 10.00 Weight (Pounds): 143 GENERAL: On NC 4L NAD HEENT: NCAT, MMM, EOMI LUNGS: Equal rise and fall of chest B/L ABDOMEN: Soft, nondistended Microbiology Date/Time Source Procedure Growth Status 03/16/20 07:20 Sputum Gram Stain - Final Resulted 03/16/20 07:20 Sputum Sputum Culture Pending Resulted Current Medications Medications (Trade) Dose Ordered Sig/Armand Route PRN Reason Start Time Stop Time Status Last Admin Dose Admin Acetaminophen (Tylenol) 650 mg Q4H PRN ORAL FEVER 03/10/20 07:30 04/09/20 07:29 03/17/20 01:07 Albuterol/ Ipratropium (Combivent Respimat) 1 puff Q4H PRN INH Shortness of Breath 03/11/20 20:00 04/10/20 19:59 03/14/20 05:04 Barium Sulfate (Varibar Honey) 250 ml NOW PRN MC RAD 03/16/20 14:00 03/19/20 13:54 Barium Sulfate (Varibar Mackay) 240 ml NOW PRN MC RAD 03/16/20 14:00 03/19/20 13:54 Barium Sulfate (Varibar Pudding) 230 ml NOW PRN MC RAD 03/16/20 14:00 03/19/20 13:54 Barium Sulfate (Varibar Thin Liquid powder) 148 gm NOW PRN MC RAD 03/16/20 14:00 03/19/20 13:54 Dexamethasone Sodium Phosphate (Decadron 4mg/ml vial) 6 mg DAILY IVP 03/11/20 17:30 03/20/20 18:00 03/18/20 08:56 Dextrose (Dextrose 50%) 25 ml Q30M PRN IV Hypoglycemia 03/10/20 07:30 06/08/20 07:29 Dextrose (Dextrose 50%) 50 ml Q30M PRN IV Hypoglycemia 03/10/20 07:30 06/08/20 07:29 Gabapentin (Neurontin) 300 mg THREE TIMES A DAY ORAL 03/10/20 09:00 04/09/20 08:59 03/18/20 08:56 Heparin Sodium (Porcine) (Heparin 5000 units/ml) 5,000 units EVERY 12 HOURS SUBQ 03/10/20 21:00 04/24/20 20:59 03/18/20 09:00 Lorazepam (Ativan 2mg/ml 1ml) 1 mg Q4H PRN IV For Anxiety 03/11/20 16:30 03/18/20 16:29 03/16/20 20:31 Ondansetron HCl (Zofran) 4 mg Q6H PRN IVP Nausea & Vomiting 03/10/20 07:30 04/09/20 07:29 03/11/20 12:42 Polyethylene Glycol (Miralax) 17 gm DAILYPRN PRN ORAL Constipation 03/10/20 07:30 04/09/20 07:29 03/15/20 13:12 Lalo Hewitt MD Mar 18, 2020 09:52
[2020-03-18 12:00] VITALS: BP 99/68
--- NOTE | 2020-03-18 12:36 | Internal Med Progress Note ---
Subjective Date of Service: Mar 18, 2020 Physician Name Pablo Hickman Attending Physician Torres Saul MD Current Medications Medications (Trade) Dose Ordered Sig/Armand Route PRN Reason Start Time Stop Time Status Last Admin Dose Admin Acetaminophen (Tylenol) 650 mg Q4H PRN ORAL FEVER 03/10/20 07:30 04/09/20 07:29 03/17/20 01:07 Albuterol/ Ipratropium (Combivent Respimat) 1 puff Q4H PRN INH Shortness of Breath 03/11/20 20:00 04/10/20 19:59 03/14/20 05:04 Barium Sulfate (Varibar Honey) 250 ml NOW PRN MC RAD 03/16/20 14:00 03/19/20 13:54 Barium Sulfate (Varibar [place]) 240 ml NOW PRN RAD 03/16/20 14:00 03/19/20 13:54 Barium Sulfate (Varibar Pudding) 230 ml NOW PRN RAD 03/16/20 14:00 03/19/20 13:54 Barium Sulfate (Varibar Thin Liquid powder) 148 gm NOW PRN RAD 03/16/20 14:00 03/19/20 13:54 Dexamethasone Sodium Phosphate (Decadron 4mg/ml vial) 6 mg DAILY IVP 03/11/20 17:30 03/20/20 18:00 03/18/20 08:56 Dextrose (Dextrose 50%) 25 ml Q30M PRN IV Hypoglycemia 03/10/20 07:30 06/08/20 07:29 Dextrose (Dextrose 50%) 50 ml Q30M PRN IV Hypoglycemia 03/10/20 07:30 06/08/20 07:29 Gabapentin (Neurontin) 300 mg THREE TIMES A DAY ORAL 03/10/20 09:00 04/09/20 08:59 03/18/20 08:56 Heparin Sodium (Porcine) (Heparin 5000 units/ml) 5,000 units EVERY 12 HOURS SUBQ 03/10/20 21:00 04/24/20 20:59 03/18/20 09:00 Lorazepam (Ativan 2mg/ml 1ml) 1 mg Q4H PRN IV For Anxiety 03/11/20 16:30 03/18/20 16:29 03/16/20 20:31 Ondansetron HCl (Zofran) 4 mg Q6H PRN IVP Nausea & Vomiting 03/10/20 07:30 04/09/20 07:29 03/11/20 12:42 Polyethylene Glycol (Miralax) 17 gm DAILYPRN PRN ORAL Constipation 03/10/20 07:30 04/09/20 07:29 03/15/20 13:12 Allergies: Coded Allergies: PENICILLINS (Verified Allergy, Unknown, 03/10/20) PHENYTOIN (Verified Allergy, Unknown, 03/10/20) ROS Limited/Unobtainable: Yes Subjective 79 YO M admitted with shortness of breath. Now COVID 19 pneumonia. Cover for Int Med-Dr Saul. Poor PO intake. Objective Last Vital Signs Date Time Temp Pulse Resp B/P (MAP) Pulse Ox O2 Delivery O2 Flow Rate FiO2 03/18/20 09:28 96 Nasal Cannula 4.0 36 03/18/20 09:28 78 16 03/18/20 08:00 96.3 119/55 (76) Microbiology Date/Time Source Procedure Growth Status 03/16/20 07:20 Sputum Gram Stain - Final Resulted 03/16/20 07:20 Sputum Sputum Culture Pending Resulted Intake and Output 03/17/20 03/18/20 19:00 07:00 Intake Total 120 ml Output Total 1200 ml 200 ml Balance -1080 ml -200 ml Intake Oral 120 ml Output Urine Total 1200 ml 200 ml # Voids 3 3 Objective PHYSICAL EXAMINATION: GENERAL: The patient is a well-developed, well-nourished male, thin appearing, in no apparent distress. HEENT: Eyes, pupils equal and responsive to light and accommodation. Extraocular movements are intact. NECK: Supple without lymphadenopathy. CHEST: Nasal canula; Diffuse crackles on bilateral bases with expiratory wheezes, otherwise without rhonchi. CARDIOVASCULAR: Tachycardic, regular rhythm. S1-S2 are normal without murmurs, rubs, or gallops. ABDOMEN: Soft, nontender, and nondistended. Positive bowel sounds. No evidence of hepatosplenomegaly. Currently no rebound or guarding noted. EXTREMITIES: Negative for clubbing, cyanosis, or edema. RECTAL/GENITAL: Not performed. NEUROLOGIC: Cranial nerves II through XII are grossly intact without focal deficits. Motor strength is 5/5 bilaterally. Assessment/Plan Assessment/Plan ASSESSMENT: This is an 79-year-old male. 1. Respiratory failure. 2. COVID-19 positive. 3. Bilateral pneumonia. 4. Hypertension. 5. Congestive heart failure. 6. Chronic obstructive pulmonary disease. 7. History of prostate cancer. 8. Anemia. 9. Cerebrovascular disease, status post cerebrovascular accident. 10. Peripheral vascular disease. 11. Gastroesophageal reflux disease. 12. Major depression. 13. Seizure disorder. TREATMENT: 1. COVID-19 positive/pneumonia. Infectious disease=Dr. Lackey. Pulmonary/critical care= Dr. Sayra Fay. The patient is currently receiving: -Decadron IV -ABX=S/P ceftriaxone and azithromycin. -S/P Remdesivir 2. Congestive heart failure. Cardiology consultation has been obtained with Dr. Chaudhry 3. History of prostate cancer. 4. Chronic obstructive pulmonary disease. As above, a pulmonary consultation has been obtained with Dr. Sayra Fay. 5. Anemia. 6. Cerebrovascular disease, status post cerebrovascular accident. Continue apixaban as above. 7. Peripheral vascular disease. 8. Gastroesophageal reflux disease. The patient has been placed on Protonix. 9. Major depression. 10. Seizure disorder. 11. CODE STATUS: full code 12. DVT prophylaxis: Heparin subcu. 13. Await swallow eval and calorie count Pablo Hickman MD Mar 18, 2020 12:36
[2020-03-18 15:43] LABS: HEMATOCRIT 44.1 % (42.0-52.0); HEMOGLOBIN 13.8 G/DL (14.2-18.0); MEAN CORPUSCULAR VOLUME 94 FL (80-99); PLATELET COUNT 339 K/UL (150-450); RED BLOOD COUNT 4.72 M/UL (4.70-6.10); RED CELL DISTRIBUTION WIDTH 13.2 % (11.6-14.8); WHITE BLOOD COUNT 6.8 K/UL (4.8-10.8)
--- NOTE | 2020-03-18 15:45 | Diagnostic Imaging Report ---
Clinical Indication: Shortness of breath, chest pain, history of Covid pneumonia, history COPD Technique: IV administration nonionic contrast. Spiral acquisition obtained through the chest. Multiplanar reconstructions generated. Total dose length product 236 mGycm. CTDIvol(s) 6, 6, 72, 4 mGy. Dose reduction achieved using automated exposure control Comparison: none Findings: The upper lobes demonstrate centrilobular emphysema and peripheral interstitial emphysema and small bullae. There is some scarring in the right upper lobe. There is posterior left upper lobe volume loss. There is also some scarring in the left lingula. Scarring is also seen in the right lower lobe periphery. Panlobular emphysema is seen in the lower lobes at the lung bases. There is a 5 mm diameter slightly irregular subpleural nodule in the posterior right upper lobe, image 39 series 8. There is a round 4 mm noncalcified nodule in the right lower lobe, image 40 series 8. A peripheral bulla is seen in the right lower lobe. There is an irregular 9 mm opacity in the right costophrenic sulcus. A calcified 7 mm nodule is seen in the left lower lobe. This appears associated with an area of linear scarring. No definite infiltrates. No effusions. Included thyroid is unremarkable. No mediastinal or hilar mass or adenopathy. The heart size is normal. No pericardial effusion. No axillary or chest wall mass or adenopathy. There is mild bilateral gynecomastia. The included upper abdominal anatomy demonstrates cholelithiasis. There is a subcentimeter low-attenuation lesion at the tip of the right hepatic lobe. There is a subcentimeter low-attenuation in the upper pole of the spleen Impression: Evidence of bilateral emphysema and bullous changes, consistent with COPD . Multiple right lower lobe nodules. If there are significant risk for lung carcinoma, short interval 6-12 month follow-up is recommended. Areas of scarring, as described No definite acute infiltrate Evidence of old granulomatous disease on the left. Cholelithiasis Subcentimeter low-attenuation right hepatic and splenic lesions, too small to characterize Incidental finding mild bilateral gynecomastia The CT scanner at [facility] is accredited by the [employer] and the scans are performed using protocols designed to limit radiation exposure to as low as reasonably achievable to attain images of sufficient resolution adequate for diagnostic evaluation.
[2020-03-18 16:00] VITALS: BP 112/80
[2020-03-18 16:15] LABS: ANION GAP -3 mmol/L (5-15); BLOOD UREA NITROGEN 21 mg/dL (7-18); CALCIUM 9.1 MG/DL (8.5-10.1); CARBON DIOXIDE 38 MMOL/L (21-32); CHLORIDE 98 MMOL/L (98-107); CREATININE 0.7 MG/DL (0.55-1.30); POTASSIUM 4.1 MMOL/L (3.5-5.1); SODIUM 133 MMOL/L (136-145)
[2020-03-18 20:00] VITALS: BP 101/63
[2020-03-19] VITALS: BP_SYST 105; BP_SYST 133; BP_DIAS 60; BP_DIAS 76
[2020-03-19 04:00] VITALS: BP 113/73
[2020-03-19 07:19] LABS: BASOPHILS % (AUTO) 3.2 % (0.0-2.0); EOSINOPHILS % (AUTO) 0.3 % (0.0-3.0); HEMOGLOBIN 14.7 G/DL (14.2-18.0); MEAN CORPUSCULAR VOLUME 89 FL (80-99); MONOCYTES % (AUTO) 10.6 % (1.0-10.0); NEUTROPHILS % (AUTO) 72.9 % (45.0-75.0); PLATELET COUNT 303 K/UL (150-450); RED BLOOD COUNT 5.07 M/UL (4.70-6.10); RED CELL DISTRIBUTION WIDTH 12.4 % (11.6-14.8); WHITE BLOOD COUNT 7.6 K/UL (4.8-10.8)
[2020-03-19 07:31] LABS: ANION GAP 3 mmol/L (5-15); BLOOD UREA NITROGEN 21 mg/dL (7-18); CALCIUM 9.3 MG/DL (8.5-10.1); CARBON DIOXIDE 37 MMOL/L (21-32); CHLORIDE 100 MMOL/L (98-107); CREATININE 0.8 MG/DL (0.55-1.30); POTASSIUM 4.4 MMOL/L (3.5-5.1); SODIUM 140 MMOL/L (136-145)
[2020-03-19 08:00] VITALS: BP 115/69
[2020-03-19] MEDS: Heparin 5000 units/ml inj SUBQ SCH (09:19)
--- NOTE | 2020-03-19 09:48 | Infectious Diseases Prog Note ---
Assessment/Plan Assessment: COVID19 pneumonia Acute hypoxic/hypercapnic resp failure- sp VM> bipap -03/11 CXR: Suspect slight worsening of bilateral upper lobe right greater than left infiltrates, over one day -03/10 CXR: Possible right upper lobe infiltrate. COPD changes. Bilateral costophrenic angle blunting. Likely related to the hyperinflation but small effusions also possible. rapid COVID PCR + Afebrile Pancytopenia -u/a neg Mild AST elevation HTN COPD CVA/TIA [place] ([facility]) Plan: -Decadron #10/10 - 03/16/20 SP Ceftriaxone #7 - 03/14/20 SP Remdesivir #5 and Azithromycin #5 -Monitor CBC/CMP, temperatures -COVID19 isolation Thank you for this consultation. Will continue to follow along with you. Subjective Allergies: Coded Allergies: PENICILLINS (Verified Allergy, Unknown, 03/10/20) PHENYTOIN (Verified Allergy, Unknown, 03/10/20) Afebrile No Leukocytosis Still on NC 4L Objective Last 24 Hour Vital Signs Date Time Temp Pulse Resp B/P (MAP) Pulse Ox O2 Delivery O2 Flow Rate FiO2 03/19/20 08:00 97.1 69 20 115/69 (84) 99 03/19/20 04:00 76 03/19/20 04:00 98.8 76 18 113/73 (86) 96 03/19/20 00:00 79 03/19/20 00:00 98.7 76 18 105/60 (75) 98 03/18/20 21:00 Nasal Cannula 4.0 03/18/20 20:04 96 Nasal Cannula 4.0 36 03/18/20 20:03 80 18 96 Nasal Cannula 4.0 36 03/18/20 20:00 98.9 79 18 101/63 (76) 98 03/18/20 20:00 79 03/18/20 16:00 84 03/18/20 16:00 97.1 87 20 112/80 (91) 98 03/18/20 12:00 96.7 75 18 99/68 (78) 100 03/18/20 12:00 76 Height (Feet): 5 Height (Inches): 10.00 Weight (Pounds): 143 GENERAL: NAD HEENT: NCAT, MMM, EOMI LUNGS: Equal rise and fall of chest B/L ABDOMEN: Soft, nondistended Laboratory Tests Test 03/18/20 15:25 03/19/20 05:42 White Blood Count 6.8 K/UL (4.8-10.8) 7.6 K/UL (4.8-10.8) Red Blood Count 4.72 M/UL (4.70-6.10) 5.07 M/UL (4.70-6.10) Hemoglobin 13.8 G/DL (14.2-18.0) L 14.7 G/DL (14.2-18.0) Hematocrit 44.1 % (42.0-52.0) 45.0 % (42.0-52.0) Mean Corpuscular Volume 94 FL (80-99) 89 FL (80-99) Mean Corpuscular Hemoglobin 29.2 PG (27.0-31.0) 28.9 PG (27.0-31.0) Mean Corpuscular Hemoglobin Concent 31.2 G/DL (32.0-36.0) L 32.5 G/DL (32.0-36.0) Red Cell Distribution Width 13.2 % (11.6-14.8) 12.4 % (11.6-14.8) Platelet Count 339 K/UL (150-450) 303 K/UL (150-450) Mean Platelet Volume 5.5 FL (6.5-10.1) L 5.4 FL (6.5-10.1) L Neutrophils (%) (Auto) % (45.0-75.0) 72.9 % (45.0-75.0) Lymphocytes (%) (Auto) % (20.0-45.0) 13.0 % (20.0-45.0) L Monocytes (%) (Auto) % (1.0-10.0) 10.6 % (1.0-10.0) H Eosinophils (%) (Auto) % (0.0-3.0) 0.3 % (0.0-3.0) Basophils (%) (Auto) % (0.0-2.0) 3.2 % (0.0-2.0) H Differential Total Cells Counted 100 Neutrophils % (Manual) 86 % (45-75) H Lymphocytes % (Manual) 4 % (20-45) L Monocytes % (Manual) 10 % (1-10) Eosinophils % (Manual) 0 % (0-3) Basophils % (Manual) 0 % (0-2) Band Neutrophils 0 % (0-8) Platelet Estimate Adequate Platelet Morphology Normal Hypochromasia 1+ Sodium Level 133 MMOL/L (136-145) L 140 MMOL/L (136-145) Potassium Level 4.1 MMOL/L (3.5-5.1) 4.4 MMOL/L (3.5-5.1) Chloride Level 98 MMOL/L (98-107) 100 MMOL/L (98-107) Carbon Dioxide Level 38 MMOL/L (21-32) H 37 MMOL/L (21-32) H Anion Gap -3 mmol/L (5-15) L 3 mmol/L (5-15) L Blood Urea Nitrogen 21 mg/dL (7-18) H 21 mg/dL (7-18) H Creatinine 0.7 MG/DL (0.55-1.30) 0.8 MG/DL (0.55-1.30) Estimat Glomerular Filtration Rate > 60 mL/min (>60) > 60 mL/min (>60) Glucose Level 192 MG/DL (74-106) #H 95 MG/DL (74-106) Calcium Level 9.1 MG/DL (8.5-10.1) 9.3 MG/DL (8.5-10.1) Current Medications Medications (Trade) Dose Ordered Sig/Armand Route PRN Reason Start Time Stop Time Status Last Admin Dose Admin Acetaminophen (Tylenol) 650 mg Q4H PRN ORAL FEVER 03/10/20 07:30 04/09/20 07:29 03/19/20 02:24 Albuterol/ Ipratropium (Combivent Respimat) 1 puff Q4H PRN INH Shortness of Breath 03/11/20 20:00 04/10/20 19:59 03/14/20 05:04 Barium Sulfate (Varibar [place]) 250 ml NOW PRN RAD 03/16/20 14:00 03/19/20 13:54 Barium Sulfate (Varibar [place]) 240 ml NOW PRN RAD 03/16/20 14:00 03/19/20 13:54 Barium Sulfate (Varibar Pud[place]) 230 ml NOW PRN RAD 03/16/20 14:00 03/19/20 13:54 Barium Sulfate (Varibar Thin Liquid powder) 148 gm NOW PRN RAD 03/16/20 14:00 03/19/20 13:54 Dexamethasone Sodium Phosphate (Decadron 4mg/ml vial) 6 mg DAILY IVP 03/11/20 17:30 03/20/20 18:00 03/19/20 09:18 Dextrose (Dextrose 50%) 25 ml Q30M PRN IV Hypoglycemia 03/10/20 07:30 06/08/20 07:29 Dextrose (Dextrose 50%) 50 ml Q30M PRN IV Hypoglycemia 03/10/20 07:30 06/08/20 07:29 Gabapentin (Neurontin) 300 mg THREE TIMES A DAY ORAL 03/10/20 09:00 04/09/20 08:59 03/19/20 09:18 Heparin Sodium (Porcine) (Heparin 5000 units/ml) 5,000 units EVERY 12 HOURS SUBQ 03/10/20 21:00 04/24/20 20:59 03/19/20 09:19 Ondansetron HCl (Zofran) 4 mg Q6H PRN IVP Nausea & Vomiting 03/10/20 07:30 04/09/20 07:29 03/11/20 12:42 Polyethylene Glycol (Miralax) 17 gm DAILYPRN PRN ORAL Constipation 03/10/20 07:30 04/09/20 07:29 03/15/20 13:12 Temazepam (RestoriL) 7.5 mg HSPRN PRN ORAL Insomnia 03/18/20 20:15 03/25/20 20:14 03/18/20 21:12 Lalo Hewitt MD Mar 19, 2020 09:48
--- NOTE | 2020-03-19 10:51 | Pulmonology Progress Note ---
Subjective ROS Limited/Unobtainable: Yes Constitutional: Reports: no symptoms HEENT: Repors: no symptoms Allergies: Coded Allergies: PENICILLINS (Verified Allergy, Unknown, 03/10/20) PHENYTOIN (Verified Allergy, Unknown, 03/10/20) Objective Last 24 Hour Vital Signs Date Time Temp Pulse Resp B/P (MAP) Pulse Ox O2 Delivery O2 Flow Rate FiO2 03/19/20 08:00 97.1 69 20 115/69 (84) 99 03/19/20 07:55 77 03/19/20 04:00 76 03/19/20 04:00 98.8 76 18 113/73 (86) 96 03/19/20 00:00 79 03/19/20 00:00 98.7 76 18 105/60 (75) 98 03/18/20 21:00 Nasal Cannula 4.0 03/18/20 20:04 96 Nasal Cannula 4.0 36 03/18/20 20:03 80 18 96 Nasal Cannula 4.0 36 03/18/20 20:00 98.9 79 18 101/63 (76) 98 03/18/20 20:00 79 03/18/20 16:00 84 03/18/20 16:00 97.1 87 20 112/80 (91) 98 03/18/20 12:00 96.7 75 18 99/68 (78) 100 03/18/20 12:00 76 Intake and Output 03/18/20 03/19/20 19:00 07:00 Intake Total 470 ml Output Total 200 ml 0 ml Balance 270 ml 0 ml Intake Oral 470 ml Output Urine Total 200 ml 0 ml # Voids 1 # Bowel Movements 1 General Appearance: WD/WN, other - elderly AA male bedridden in NAD HEENT: normocephalic, atraumatic Respiratory: chest wall non-tender, lungs clear Cardiovascular: normal peripheral pulses, normal rate - SR on tele Abdomen: normal bowel sounds, soft, non tender Genitourinary: normal external genitalia Extremities: no edema Skin: no rash Neurologic: abnormal gait, alert Musculoskeletal: atrophy - BLE Laboratory Tests 03/18/20 15:25: White Blood Count 6.8, Red Blood Count 4.72, Hemoglobin 13.8L, Hematocrit 44.1, Mean Corpuscular Volume 94, Mean Corpuscular Hemoglobin 29.2, Mean Corpuscular Hemoglobin Concent 31.2L, Red Cell Distribution Width 13.2, Platelet Count 339, Mean Platelet Volume 5.5L, Neutrophils (%) (Auto) , Lymphocytes (%) (Auto) , Monocytes (%) (Auto) , Eosinophils (%) (Auto) , Basophils (%) (Auto) , Differential Total Cells Counted 100, Neutrophils % (Manual) 86H, Lymphocytes % (Manual) 4L, Monocytes % (Manual) 10, Eosinophils % (Manual) 0, Basophils % (Manual) 0, Band Neutrophils 0, Platelet Estimate Adequate, Platelet Morphology Normal, Hypochromasia 1+, Sodium Level 133L, Potassium Level 4.1, Chloride Level 98, Carbon Dioxide Level 38H, Anion Gap -3L, Blood Urea Nitrogen 21H, Creatinine 0.7, Estimat Glomerular Filtration Rate > 60, Glucose Level 192#H, Calcium Level 9.1 03/19/20 05:42: White Blood Count 7.6, Red Blood Count 5.07, Hemoglobin 14.7, Hematocrit 45.0, Mean Corpuscular Volume 89, Mean Corpuscular Hemoglobin 28.9, Mean Corpuscular Hemoglobin Concent 32.5, Red Cell Distribution Width 12.4, Platelet Count 303, Mean Platelet Volume 5.4L, Neutrophils (%) (Auto) 72.9, Lymphocytes (%) (Auto) 13.0L, Monocytes (%) (Auto) 10.6H, Eosinophils (%) (Auto) 0.3, Basophils (%) (Auto) 3.2H, Sodium Level 140, Potassium Level 4.4, Chloride Level 100, Carbon Dioxide Level 37H, Anion Gap 3L, Blood Urea Nitrogen 21H, Creatinine 0.8, Estimat Glomerular Filtration Rate > 60, Glucose Level 95, Calcium Level 9.3 Current Medications Medications (Trade) Dose Ordered Sig/[place] Route PRN Reason Start Time Stop Time Status Last Admin Dose Admin Acetaminophen (Tylenol) 650 mg Q4H PRN ORAL FEVER 03/10/20 07:30 04/09/20 07:29 03/19/20 02:24 Albuterol/ Ipratropium (Combivent Respimat) 1 puff Q4H PRN INH Shortness of Breath 03/11/20 20:00 04/10/20 19:59 03/14/20 05:04 Barium Sulfate (Varibar Honey) 250 ml NOW PRN MC RAD 03/16/20 14:00 03/19/20 13:54 Barium Sulfate (Varibar [place]) 240 ml NOW PRN RAD 03/16/20 14:00 03/19/20 13:54 Barium Sulfate (Varibar [place]ud[place]) 230 ml NOW PRN RAD 03/16/20 14:00 03/19/20 13:54 Barium Sulfate (Varibar Thin Liquid powder) 148 gm NOW PRN RAD 03/16/20 14:00 03/19/20 13:54 Dexamethasone Sodium Phosphate (Decadron 4mg/ml vial) 6 mg DAILY IVP 03/11/20 17:30 03/20/20 18:00 03/19/20 09:18 Dextrose (Dextrose 50%) 25 ml Q30M PRN IV Hypoglycemia 03/10/20 07:30 06/08/20 07:29 Dextrose (Dextrose 50%) 50 ml Q30M PRN IV Hypoglycemia 03/10/20 07:30 06/08/20 07:29 Gabapentin (Neurontin) 300 mg THREE TIMES A DAY ORAL 03/10/20 09:00 04/09/20 08:59 03/19/20 09:18 Heparin Sodium (Porcine) (Heparin 5000 units/ml) 5,000 units EVERY 12 HOURS SUBQ 03/10/20 21:00 04/24/20 20:59 03/19/20 09:19 Ondansetron HCl (Zofran) 4 mg Q6H PRN IVP Nausea & Vomiting 03/10/20 07:30 04/09/20 07:29 03/11/20 12:42 Polyethylene Glycol (Miralax) 17 gm DAILYPRN PRN ORAL Constipation 03/10/20 07:30 04/09/20 07:29 03/15/20 13:12 Temazepam (RestoriL) 7.5 mg HSPRN PRN ORAL Insomnia 03/18/20 20:15 03/25/20 20:14 03/18/20 21:12 Assessment/Plan Problems: (1) Pneumonia due to COVID-19 virus (2) Multiple pulmonary nodules (3) COPD (chronic obstructive pulmonary disease) (4) HTN (hypertension) (5) History of CVA (cerebrovascular accident) Assessment/Plan CT scan showed multiple right lower lobe infiltrate, Need repeat CT scan in 3-6 month on nasal cannula improving respiratory treatment titrate fio2 to sat of 92% check sputum respiratory isolation Sayra Fay MD Mar 19, 2020 10:51
[2020-03-19 12:00] VITALS: BP 94/59
[2020-03-19 16:00] VITALS: BP 101/63
--- NOTE | 2020-03-19 17:24 | Internal Med Progress Note ---
Subjective Date of Service: Mar 19, 2020 Physician Name Pablo Hickman Attending Physician Torres Saul MD Allergies: Coded Allergies: PENICILLINS (Verified Allergy, Unknown, 03/10/20) PHENYTOIN (Verified Allergy, Unknown, 03/10/20) ROS Limited/Unobtainable: Yes Subjective 79 YO M admitted with shortness of breath. Now COVID 19 pneumonia. Cover for Int Med-Dr Saul. Poor PO intake. Objective Last Vital Signs Date Time Temp Pulse Resp B/P (MAP) Pulse Ox O2 Delivery O2 Flow Rate FiO2 03/19/20 16:00 98.3 86 20 101/63 (76) 97 03/19/20 09:00 Nasal Cannula 4.0 03/19/20 07:00 36 Laboratory Tests Test 03/19/20 05:42 White Blood Count 7.6 K/UL (4.8-10.8) Red Blood Count 5.07 M/UL (4.70-6.10) Hemoglobin 14.7 G/DL (14.2-18.0) Hematocrit 45.0 % (42.0-52.0) Mean Corpuscular Volume 89 FL (80-99) Mean Corpuscular Hemoglobin 28.9 PG (27.0-31.0) Mean Corpuscular Hemoglobin Concent 32.5 G/DL (32.0-36.0) Red Cell Distribution Width 12.4 % (11.6-14.8) Platelet Count 303 K/UL (150-450) Mean Platelet Volume 5.4 FL (6.5-10.1) L Neutrophils (%) (Auto) 72.9 % (45.0-75.0) Lymphocytes (%) (Auto) 13.0 % (20.0-45.0) L Monocytes (%) (Auto) 10.6 % (1.0-10.0) H Eosinophils (%) (Auto) 0.3 % (0.0-3.0) Basophils (%) (Auto) 3.2 % (0.0-2.0) H Sodium Level 140 MMOL/L (136-145) Potassium Level 4.4 MMOL/L (3.5-5.1) Chloride Level 100 MMOL/L (98-107) Carbon Dioxide Level 37 MMOL/L (21-32) H Anion Gap 3 mmol/L (5-15) L Blood Urea Nitrogen 21 mg/dL (7-18) H Creatinine 0.8 MG/DL (0.55-1.30) Estimat Glomerular Filtration Rate > 60 mL/min (>60) Glucose Level 95 MG/DL (74-106) Calcium Level 9.3 MG/DL (8.5-10.1) Intake and Output 03/18/20 03/19/20 19:00 07:00 Intake Total 470 ml Output Total 200 ml 0 ml Balance 270 ml 0 ml Intake Oral 470 ml Output Urine Total 200 ml 0 ml # Voids 1 # Bowel Movements 1 Objective PHYSICAL EXAMINATION: GENERAL: The patient is a well-developed, well-nourished male, thin appearing, in no apparent distress. HEENT: Eyes, pupils equal and responsive to light and accommodation. Extraocular movements are intact. NECK: Supple without lymphadenopathy. CHEST: Nasal canula; Diffuse crackles on bilateral bases with expiratory wheezes, otherwise without rhonchi. CARDIOVASCULAR: Tachycardic, regular rhythm. S1-S2 are normal without murmurs, rubs, or gallops. ABDOMEN: Soft, nontender, and nondistended. Positive bowel sounds. No evidence of hepatosplenomegaly. Currently no rebound or guarding noted. EXTREMITIES: Negative for clubbing, cyanosis, or edema. RECTAL/GENITAL: Not performed. NEUROLOGIC: Cranial nerves II through XII are grossly intact without focal deficits. Motor strength is 5/5 bilaterally. Assessment/Plan Assessment/Plan ASSESSMENT: This is an 79-year-old male. 1. Respiratory failure. 2. COVID-19 positive. 3. Bilateral pneumonia. 4. Hypertension. 5. Congestive heart failure. 6. Chronic obstructive pulmonary disease. 7. History of prostate cancer. 8. Anemia. 9. Cerebrovascular disease, status post cerebrovascular accident. 10. Peripheral vascular disease. 11. Gastroesophageal reflux disease. 12. Major depression. 13. Seizure disorder. TREATMENT: 1. COVID-19 positive/pneumonia. Infectious disease=Dr. Lackey. Pulmonary/critical care= Dr. Sayra Fay. The patient is currently receiving: -Decadron IV -ABX=S/P ceftriaxone and azithromycin. -S/P Remdesivir 2. Congestive heart failure. Cardiology consultation has been obtained with Dr. Chaudhry 3. History of prostate cancer. 4. Chronic obstructive pulmonary disease. As above, a pulmonary consultation has been obtained with Dr. Sayra Fay. 5. Anemia. 6. Cerebrovascular disease, status post cerebrovascular accident. Continue apixaban as above. 7. Peripheral vascular disease. 8. Gastroesophageal reflux disease. The patient has been placed on Protonix. 9. Major depression. 10. Seizure disorder. 11. CODE STATUS: full code 12. DVT prophylaxis: Heparin subcu. 13. Discharge to [facility] today Pablo Hickman MD Mar 19, 2020 17:24
--- NOTE | 2020-03-20 11:58 | Discharge Summary ---
Discharge Summary Discharge Summary _ DATE OF ADMISSION: 03/10/2020 DATE OF DISCHARGE: 03/19/2020 DISCHARGED BY: Dr. Saul REASON FOR ADMISSION: 79 years old male, resident of half-way facility, with past medical history significant for hypertension, COPD, CVA, was sent for evaluation due to respiratory distress and shortness of breath for 1 day. Patient was tested positive for COVID-19 on March 05, 2020. Symptoms worsened over the last day. Patient reported that he was not able to breathe. Pulse oximetry was 90% on room air. Paramedics placed patient on the oxygen and brought him to ED for evaluation No fever or chills. No nausea and vomiting. Upon evaluation patient was hypoxic and required 100% nonrebreathing mask. Laboratory work-up revealed no leukocytosis , WBC 4.1 , hemoglobin 12.2 , hematocrit 37.5 , platelet count 140. D-dimer 0.37 ,ferritin 335, LDH 364 , CRP 11.6. Lactic acid 1.3. Stable electrolytes and renal parameters. Glucose 120. Troponin -0.011, pro BNP 61. Albumin 3.0 ABG revealed respiratory acidosis and hypoxia : pH 7.3 , PCO2 68 , O2 sat was 99% on 100% nonrebreather mask. Urinalysis revealed 2 protein, but no evidence of urinary tract infection. CXR demonstrated COPD changes , possible right upper lobe infiltrate. Bilateral costophrenic angle blunting , likely related to hyperinflation , but small effusion were also possible. Rapid COVID-19 in ED was positive. Patient was placed on the BiPAP. Patient received steroids, 1 L of fluids, Lovenox , empiric antibiotic and admitted for further management. CONSULTANTS: shank faker Dr. Lindsey pulmonary Dr. Fay ID specialist Dr. Hewitt [facility] COURSE: Patient admitted to telemetry floor to isolation room. Supplemental oxygen provided and titrated to keep pulse oximetry above 92%. Pulmonary toilet provided. Combivent via MDI provided as needed. Patient received steroids and remdesivivr along with empiric antibiotics . Patient was followed-up with chest x-ray. Inflammatory markers were followed -up to check for cytokine storm. Prior to discharge CRP down to normal. DVT prophylaxis provided. Blood cultures were negative. Echocardiogram revealed preserved ejection fraction. Patient was hypotensive , and antihypertensive were on hold. Patient undergone CT scan of the chest which revealed multiply right lower lobe nodules. Evidence of bilateral emphysema and bullous changes , consistent with a COPD. Patient will need to repeat CT scan in 3 to 6 months Seizure precaution maintained. No evidence of seizure activity while in the hospital. Bowel regimen instituted. Supportive care provided. As patient clinically improved , he was able to be weaned to oxygen via nasal cannula. Patient clinically stabilized and was ready for transfer to the skilled [facility] facility for continuation of care. FINAL DIAGNOSES: COVID-19 pneumonia Acute hypoxemic hypercapnic respiratory failure secondary to COVID infection ( requiring NRM and BiPAP)- resolved COPD Multiple pulmonary nodules Hypertension Cerebrovascular disease with history of CVA Seizure disorder Peripheral vascular disease History of prostate cancer GERD DISCHARGE MEDICATIONS: See Medication Reconciliation list. DISCHARGE INSTRUCTIONS: Patient was discharged to the half-way facility. Follow up with medical doctor at the facility. I have been assigned to dictate discharge summary for this account. Prabha Dewitt NP Mar 20, 2020 11:58
== END 2020-03-19 17:16 | DRG 177 ==
LOC: EDBD 05:10 → EMR 05:29 → ICU 05:32 → EDBEDREQ 05:54 → CMPBEDREQ 05:55 → EDBEDREQ 06:01 → UNDOADMIN 06:52 → 2E 06:52 → EDBEDREQTM 08:33 → EDBEDREQ 08:33 → EDBEDREQSVC 09:11 → EDBEDREQ 19:13 → 2W 03-12 06:01 → 2E 03-12 22:05
PROC: 5A09457 Assistance with Respiratory Ventilation, 24-96 Consecutive Hours, Continuous Positive Airway Pressure (ICD-10-PCS; principal; 2020-03-10)
DX: U07.1 COVID-19 (principal); J12.89 Other viral pneumonia; J96.02 Acute respiratory failure with hypercapnia; J96.01 Acute respiratory failure with hypoxia; D61.818 Other pancytopenia; Z85.46 Personal history of malignant neoplasm of prostate; I11.0 Hypertensive heart disease with heart failure; I50.9 Heart failure, unspecified; J44.9 Chronic obstructive pulmonary disease, unspecified; I73.9 Peripheral vascular disease, unspecified; K21.9 Gastro-esophageal reflux disease without esophagitis; F32.9 Major depressive disorder, single episode, unspecified; R91.8 Other nonspecific abnormal finding of lung field; Z86.73 Personal history of transient ischemic attack (TIA), and cerebral infarction without residual deficits; R56.9 Unspecified convulsions
CPT/HCPCS: 36415; 71045; 71260; 80048; 80053; 80069; 81003; 82248; 82550; 82553; 82728; 82803; 82962; 83605; 83615; 83690; 83735; 83880; 84100; 84484; 85007; 85025; 85379; 85384; 85610; 85651; 85730; 86140; 87040; 87070; 87081; 87205; 93005; 93306; 94640; 94660; 94664; 96365; 96368; 96372; 96375; 99285; J2405; J3490; J7030; J7620; U0002

== ENCOUNTER 2020-08-03 18:51 | Inpatient (IN) | payer MEDICARE, OTHER ==
[~2020-08-03] VITALS: Ht 185.4 cm; Wt 86.2 kg
[~2020-08-03 18:51] MED LIST: ACETAMINOPHEN-1 EAC1 ORAL; ACETAMINOPHEN325 M1 ORAL; ARTIFICIAL TEAR15 ML BOTH EYES; AZITHROMYCIN500 M1 IVPB; BACLOFEN10 MG ORAL; BISACODYL5 MG ORAL; DOCUSATE SODIU100 MG ORAL; DUONEB 0.5-3(2.53 ML HHN; ELIQUIS2.5 MG PO; FAMOTIDINE20 MG ORAL; FLOMAX0.4 MG ORAL; GABAPENTIN400 MG ORAL; LIDODERM700 M1 TOPIC; MELATONIN3 MG ORAL; MULTIVITAMINS1 EA13 ORAL; NARCAN4 MG NS; NORCO 10-325 T1 EACH ORAL; PERIDEX15 ML MM; PREDNISONE20 MG ORAL
[2020-08-03] MEDS ORDERED: Acetaminophen 650 MG SUPP RECTAL ONE (19:15)
[2020-08-03] MEDS ORDERED: Solu-MEDROL 125mg Inj IVP ONE (19:15)
[2020-08-03] MEDS: Albuterol/Ipratropium 3ml neb HHN SCH ×3 (19:27→19:48)
[2020-08-03 19:31] LABS: HEMOGLOBIN 11.9 G/DL (14.2-18.0); MEAN CORPUSCULAR VOLUME 92 FL (80-99); PLATELET COUNT 267 K/UL (150-450); RED BLOOD COUNT 4.34 M/UL (4.70-6.10); RED CELL DISTRIBUTION WIDTH 14.2 % (11.6-14.8); WHITE BLOOD COUNT 6.3 K/UL (4.8-10.8)
--- NOTE | 2020-08-03 19:35 | NUR ---
RESPIRATORY NOTE: Pt BIBA to ED c/o AMS & SOB. Pt placed on BiPAP 15/5, 100% w/ a Facial mask. Skin intact, no redness/breakdowns noted. Pt is awake/disoriented. B/S vinod. diminished, nonproductive cough. Pt is also getting breathing txs at this time. BiPAP plugged into red outlet, alarms on & audible. BVM at bedside. RN present at bedside. ABG to be drawn post tx. Will continue to monitor pt.
[2020-08-03 19:45] LABS: ANION GAP 4 mmol/L (5-15); BLOOD UREA NITROGEN 18 mg/dL (7-18); CALCIUM 9.2 MG/DL (8.5-10.1); CARBON DIOXIDE 36 MMOL/L (21-32); CHLORIDE 101 MMOL/L (98-107); POTASSIUM 4.4 MMOL/L (3.5-5.1); SODIUM 141 MMOL/L (136-145)
[2020-08-03 19:46] VITALS: BP 100/77
[2020-08-03 19:47] LABS: INR 1.1 (0.9-1.1)
--- NOTE | 2020-08-03 19:54 | NUR ---
ED Nurse Note: Pt sent in from halfway via EMS with low O2 sats/ SOB. Pt does not respond to verbal command and will answer, "No," when asked questions. Blood and urine sample sent to lab.
[2020-08-03 20:06] LABS: APPEARANCE,URINE SLIGHTLY CLOUDY; BILIRUBIN, URINE NEGATIVE (NEGATIVE); GLUCOSE, URINE (UA) NEGATIVE (NEGATIVE); KETONES,URINE NEGATIVE (NEGATIVE); LEUKOCYTE ESTERASE ,URINE 2+ (NEGATIVE); NITRITE,URINE NEGATIVE (NEGATIVE); PH,URINE 6 (4.5-8.0); PROTEIN,URINE 1+ (NEGATIVE); UROBILINOGEN,URINE 1 MG/DL (0.0-1.0)
[2020-08-03 20:16] LABS: ALANINE AMINOTRANSFERASE 34 U/L (12-78); ALBUMIN 3.4 G/DL (3.4-5.0); ALBUMIN/GLOBULIN RATIO 0.8 (1.0-2.7); ALKALINE PHOSPHATASE 68 U/L (46-116); ASPARTATE AMINO TRANSFERASE 22 U/L (15-37); BILIRUBIN,TOTAL 0.8 MG/DL (0.2-1.0); CKMB 1.4 NG/ML (0.0-3.6); CREATINE KINASE 72 U/L (26-308); FERRITIN 34 NG/ML (8-388); LACTATE DEHYDROGENASE 263 U/L (81-234)
[2020-08-03 20:16] LABS: COLOR,URINE YELLOW
--- NOTE | 2020-08-03 21:53 | Emergency Room Report ---
History of Present Illness General Chief Complaint: Altered Mental Status Source: Patient, EMS Present Illness HPI 79-year-old male presents for evaluation. Brought in by EMS from residential facility. Respiratory distress. Fever. Tachypneic and tachycardic. History of COPD. unable to provide any additional history at this time. Reported recently vaccinated for Covid. No other aggravating relieving factors. No other associated symptoms Allergies: Coded Allergies: PENICILLINS (Verified Allergy, Unknown, 03/10/20) PHENYTOIN (Verified Allergy, Unknown, 03/10/20) COVID-19 Screening Contact w/high risk pt: No Experienced COVID-19 symptoms?: Yes COVID-19 Testing performed SECURITY STRATEGIST: No COVID-19 Screening: Negative COVID-19 Patient History Past Medical History: HTN, COPD, seizures Pertinent Family History: none Social History: Denies: smoking, alcohol use, drug use Immunizations: UTD Reviewed Nursing Documentation: PMH: Agreed; PSxH: Agreed Nursing Documentation-PMH Hx Cardiac Problems: Yes Hx Hypertension: Yes Hx COPD: Yes - COPD, ARDS Hx Cancer: Yes Hx Gastrointestinal Problems: Yes Hx Neurological Problems: Yes Hx Seizures: Yes Hx Weakness: Yes Review of Systems All Other Systems: limited Physical Exam Vital Signs Date Time Temp Pulse Resp B/P (MAP) Pulse Ox O2 Delivery O2 Flow Rate FiO2 08/03/20 18:42 102.9 136 20 122/74 (90) 95 Nasal Cannula 2.0 08/03/20 19:28 100 100 Sp02 EP Interpretation: reviewed, normal General Appearance: alert, GCS 15, non-toxic, mild distress Head: normocephalic, atraumatic Eyes: bilateral eye normal inspection, bilateral eye PERRL ENT: hearing grossly normal, normal pharynx, no angioedema, normal voice Neck: full range of motion, supple/symm/no masses Respiratory: chest non-tender, accessory muscle use, speaking full sentences, wheezing Cardiovascular #1: no edema, tachycardia Cardiovascular #2: 2+ carotid (R), 2+ carotid (L), 2+ radial (R), 2+ radial (L), 2+ dorsalis pedis (R), 2+ dorsalis pedis (L) Gastrointestinal: normal bowel sounds, non tender, soft, non-distended, no guarding, no rebound Rectal: deferred Genitourinary: normal inspection, no CVA tenderness Musculoskeletal: back normal, normal range of motion, gait/station normal, non- tender Neurologic: other - nonverbal Psychiatric: other - nonverbal Reflexes: 3+ bicep (R), 3+ bicep (L), 3+ tricep (R), 3+ tricep (L), 3+ knee (R), 3+ knee (L) Skin: other - see nursing notes Lymphatic: no adenopathy Procedures Critical Care Time Critical Care Time i. I feel this is a highly complex case requiring extensive working including EKG/Rhythm strip, Xray/CT/US, Blood/urine lab work, repeat exams while in ED, and administration of strong opiates/narcotics for pain control, admission to hospital or close patient follow up. Total time: 60 min bedside evaluation and treatment excludes procedures (EKG). Reason for critical care: respiratory distress. Possible complications: hypotension, hypertension, WA, shock, arrhythmias, metabolic acidosis, end organ damage, respiratory failure. Interventions: Labs, EKG, chest x-ray, BiPAP, ABG, nebulizer treatments, IV fluids. Antibiotics. Course: Presenting with respiratory distress. Tachypneic. Wheezing. History of COPD. Started on BiPAP with nebulizer treatments. ABG shows no significant hypoxia or hypercapnia. Has UTI. Chest x-ray shows pneumonia. Respiratory status improving on BiPAP. Broad-spectrum antibiotics given. Consultations: nursing staff, EMS, family Performed by: Dr Parks Tolerated well condition = critical j. because of unstable vital signs this patient had a condition that could potentially threaten life or limb. I feel this is a critical patient who required my full attention while patient was considered critical. Total Critical Care Time excluding procedures was greater than 60 minutes Medical Decision Making Diagnostic Impression: Primary Impression: COPD (chronic obstructive pulmonary disease) Qualified Codes: J44.9 - Chronic obstructive pulmonary disease, unspecified Additional Impressions: Pneumonia Qualified Codes: J18.9 - Pneumonia, unspecified organism UTI (urinary tract infection) Qualified Codes: N39.0 - Urinary tract infection, site not specified ER Course Hospital Course 79-year-old male presents with shortness of breath. Differential diagnoses include: Pneumonia, CHF exacerbation, pneumothorax, fluid overload Clinical course Patient placed on stretcher. Patient started on BiPAP. After initial history and physical, I ordered nebulizer treatments. I ordered labs, IV fluids, EKG, chest x-ray, blood cultures, UA. Labs -no leukocytosis., hemoglobin/hematocrit stable, electrolytes okay, EKGtachycardia no acute ischemic changes interpreted by me CXR - R lower lobe infiltrate ABG shows no significant hypercapnia or hypoxia 30 cc/kg fluid bolus. Given broad-spectrum antibiotics. Respiratory status improving on BiPAP Case discussed with Dr. Saul and he agreed to the patient to his service for further care and support I feel this is a highly complex case requiring extensive working including EKG/Rhythm strip, Xray/CT/US, Blood/urine lab work, repeat exams while in ED, and administration of strong opiates/narcotics for pain control, admission to hospital or close patient follow up. Diagnosis - pneumonia COPD, UTI Patient admitted to SDU in critical condition Laboratory Tests Test 08/03/20 18:45 08/03/20 19:08 08/03/20 19:41 08/03/20 19:55 Lactic Acid Level 1.90 mmol/L (0.4-2.0) White Blood Count 6.3 K/UL (4.8-10.8) Red Blood Count 4.34 M/UL (4.70-6.10) L Hemoglobin 11.9 G/DL (14.2-18.0) L Hematocrit 40.0 % (42.0-52.0) L Mean Corpuscular Volume 92 FL (80-99) Mean Corpuscular Hemoglobin 27.4 PG (27.0-31.0) Mean Corpuscular Hemoglobin Concent 29.8 G/DL (32.0-36.0) L Red Cell Distribution Width 14.2 % (11.6-14.8) Platelet Count 267 K/UL (150-450) Mean Platelet Volume 5.7 FL (6.5-10.1) L Neutrophils (%) (Auto) % (45.0-75.0) Lymphocytes (%) (Auto) % (20.0-45.0) Monocytes (%) (Auto) % (1.0-10.0) Eosinophils (%) (Auto) % (0.0-3.0) Basophils (%) (Auto) % (0.0-2.0) Differential Total Cells Counted 100 Neutrophils % (Manual) 84 % (45-75) H Lymphocytes % (Manual) 15 % (20-45) L Monocytes % (Manual) 1 % (1-10) Eosinophils % (Manual) 0 % (0-3) Basophils % (Manual) 0 % (0-2) Band Neutrophils 0 % (0-8) Platelet Estimate Adequate Platelet Morphology Normal Red Blood Cell Morphology Normal Prothrombin Time 12.3 SEC (9.30-11.50) H Prothromb Time International Ratio 1.1 (0.9-1.1) Activated Partial Thromboplast Time 22 SEC (23-33) L D-Dimer 0.36 mg/L FEU (0.00-0.49) Sodium Level 141 MMOL/L (136-145) Potassium Level 4.4 MMOL/L (3.5-5.1) Chloride Level 101 MMOL/L (98-107) Carbon Dioxide Level 36 MMOL/L (21-32) H Anion Gap 4 mmol/L (5-15) L Blood Urea Nitrogen 18 mg/dL (7-18) Creatinine 1.0 MG/DL (0.55-1.30) Estimat Glomerular Filtration Rate > 60 mL/min (>60) Glucose Level 107 MG/DL (74-106) H Calcium Level 9.2 MG/DL (8.5-10.1) Ferritin 34 NG/ML (8-388) Total Bilirubin 0.8 MG/DL (0.2-1.0) Aspartate Amino Transf (AST/SGOT) 22 U/L (15-37) Alanine Aminotransferase (ALT/SGPT) 34 U/L (12-78) Alkaline Phosphatase 68 U/L (46-116) Lactate Dehydrogenase 263 U/L (81-234) H Total Creatine Kinase 72 U/L (26-308) Creatine Kinase MB 1.4 NG/ML (0.0-3.6) Creatine Kinase MB Relative Index 1.9 Troponin I 0.000 ng/mL (0.000-0.056) C-Reactive Protein, Quantitative 6.3 mg/dL (0.00-0.90) H Pro-B-Type Natriuretic Peptide 39 pg/mL (0-125) Total Protein 7.5 G/DL (6.4-8.2) Albumin 3.4 G/DL (3.4-5.0) Globulin 4.1 g/dL Albumin/Globulin Ratio 0.8 (1.0-2.7) L Lipase 73 U/L (73-393) Urine Color Yellow Urine Appearance Slightly cloudy Urine pH 6 (4.5-8.0) Urine Specific [place] 1.010 (1.005-1.035) Urine Protein 1+ (NEGATIVE) H Urine Glucose (UA) Negative (NEGATIVE) Urine Ketones Negative (NEGATIVE) Urine Blood 4+ (NEGATIVE) H Urine Nitrite Negative (NEGATIVE) Urine Bilirubin Negative (NEGATIVE) Urine Urobilinogen 1 MG/DL (0.0-1.0) H Urine Leukocyte Esterase 2+ (NEGATIVE) H Urine RBC 20-30 /HPF (0 - 0) H Urine WBC 15-20 /HPF (0 - 0) H Urine Squamous Epithelial Cells Few /LPF (NONE/OCC) Urine Bacteria Many /HPF (NONE) H Arterial Blood pH 7.398 (7.350-7.450) Arterial Blood Partial Pressure CO2 55.0 mmHg (35.0-45.0) H Arterial Blood Partial Pressure O2 106.8 mmHg (75.0-100.0) H Arterial Blood HCO3 33.2 mmol/L (22.0-26.0) H Arterial Blood Oxygen Saturation 97.7 % (95-100) Arterial Blood Base Excess 6.9 (-2-2) H Chadwick Test Positive EKG Diagnostic Results Troponin ordered: Yes Rate: tachycardiac Rhythm: NSR ST Segments: no acute changes ASA given to the pt in ED: No Rhythm Strip Diag. Results EP Interpretation: yes Rhythm: NSR, no PVC's, no ectopy Chest X-Ray Diagnostic Results Chest X-Ray Diagnostic Results : Chest X-Ray Ordered: Yes # of Views/Limited/Complete: 1 View Indication: Shortness of Breath EP Interpretation: Yes Interpretation: no effusion, no pneumothorax, other - R sided infiltrate Impression: Other - PNA Electronically Signed by: Electronically signed by Butch Parks MD Last Vital Signs Date Time Temp Pulse Resp B/P (MAP) Pulse Ox O2 Delivery O2 Flow Rate FiO2 08/03/20 20:28 50 08/03/20 19:50 130 38 100 Bi-Pap 08/03/20 19:46 103.0 100/77 08/03/20 18:42 2.0 Status: improved Disposition: ADMITTED INPATIENT Condition: Critical Referrals: NOT CHOSEN IPA/,REFERRING (PCP) Butch Parks MD Aug 03, 2020 21:53
[2020-08-03 22:20] VITALS: BP 101/60
--- NOTE | 2020-08-03 23:19 | NUR ---
ED Nurse Note: Pt is answering questions and is oriented to name. Pt is requesting to take bipap mask off, advised pt he is very sick and we cannot take mask off at this time.
[2020-08-03 23:20] VITALS: BP 109/71
--- NOTE | 2020-08-03 23:57 | NUR ---
ED Nurse Note: RT in room to see if pt can tolerate being off bipap.
--- NOTE | 2020-08-04 00:16 | NUR ---
ED Nurse Note: Pt reports he feels like he cannot breathe. Advised pt he is breathing, and he needs to try and relax. Sat pt's bed up higher. Pt's sats are 93% on a venturi mask. Adivsed pt he can go back on bipap if needed. Pt is aao x4.
[2020-08-04 00:18] VITALS: BP 117/84
[2020-08-04] MEDS ORDERED: LORazepam Inj 2mg/ml 1ml IV ONE (01:30)
--- NOTE | 2020-08-04 01:42 | NUR ---
ED Nurse Note: Pt is anxious and reports he needs more oxygen. Advised pt oxygen saturations are within normal limits. Pt repositioned in bed. Pt is AAO x4 at this time.
[2020-08-04 01:45] VITALS: BP 125/71
--- NOTE | 2020-08-04 02:30 | NUR ---
ED Nurse Note: Pt repositioned in bed. No new needs identified at this time.
--- NOTE | 2020-08-04 03:23 | NUR ---
ED Nurse Note: Pt is resting. Responds to verbal command. No new needs identified at this time.
--- NOTE | 2020-08-04 05:19 | NUR ---
ED Nurse Note: Pt woke up, reports he is cold and asked for something for his mouth. Provided warm blankets for pts and swabbed his mouth with lemon swab. No other needs identified at this time.
[2020-08-04 05:20] VITALS: BP 128/76
[2020-08-04] MEDS ORDERED: diclofenac (05:37)
--- NOTE | 2020-08-04 06:02 | NUR ---
ED Nurse Note: Pt reports he had a bowel movement. SNF swabs done and sent to lab, pt cleaned and bed changed.
--- NOTE | 2020-08-04 06:11 | NUR ---
TRANSFER TO FLOOR: Patient transferred to [facility] as ordered, per ED Provider. Report given to ION SMITH. Belongings sent to floor with pt. Belonging inventory filled out.
--- NOTE | 2020-08-04 06:30 | NUR ---
NURSE NOTES: Received received report and patient from Lianna Young. Pt alert x 3, oriented to name, follows commands, afebrile and tachypneic at 25 bpm. On venturi mask at 10 lpm. pt saturating at 92-93%. No other discomforts noted. With right Forearm 22g iv line intact, patent and asymptomatic. with Fc to urine bag draining mera yellow below bladder. Gown and linen were changed. VS WNL. Needs were attended. Patient is watching TV when this RN left. bed rails are up and wheels are locked. Call light within reach. Continue plan of care. Will endorse to AM nurse.
--- NOTE | 2020-08-04 07:05 | NUR ---
NURSE HAND-OFF REPORT: Important Events on Shift: transferred to SDU from ED Patient Status: stable but tachypneic Diet: Pending Orders: n Pending Results/Labs:n Pending MD notification:n Latest Vital Signs: Temperature 97.0 , Pulse 113 , B/P 138 /88 , Respiratory Rate 35 , O2 SAT 94 , Venturi Mask, O2 Flow Rate 10.0 . Vital Sign Comment: n EKG Rhythm: Sinus Tachycardia Rhythm change?: MD Notified?: - MD Response: Latest Castro Fall Score: 35 Fall Risk: Safety Measures: Call light , Bed Alarm , Side Rails , Bed position . Fall Precautions: Report given to ION Smalls. Pt asleep in bed. HOB elevated.
--- NOTE | 2020-08-04 07:20 | NUR ---
NURSE NOTES: Received report from ION SMITH. Patient in bed resting, no active s/s cardiac distress noted at this time, Patient SOB, tachypnea, O2 sat. 93% RR 26, patient using accessory muscle. Patient AOx3 forgetful. ST with HR 110s. Patient on Venturi mask 10L Fio2 40%. Butler catheter draining well to gravity at this time. IV on right FA 22G, asymptomatic, patent, intact. Awaiting for COVID swab result. Bed in lowest position, side rails upx3, call light within reach, bed alarm on, Will continue to monitor.
--- NOTE | 2020-08-04 07:54 | NUR ---
NURSE NOTES: Called Dr. Saul for admission order, awaiting for callback, will continue to follow up.
[2020-08-04] MEDS ORDERED: Albuterol/Ipratropium 3ml neb HHN PRN (09:00)
--- NOTE | 2020-08-04 09:30 | NUR ---
NURSE NOTES: Received admission order from Dr. Saul, order noted, entered, carried out.
[2020-08-04] MEDS: Eliquis 2.5mg tablet ORAL SCH ×2 (09:59→18:39)
--- NOTE | 2020-08-04 10:08 | Cardiac Electrophysiology PN ---
Subjective Subjective [id number] Objective Last 24 Hour Vital Signs Date Time Temp Pulse Resp B/P (MAP) Pulse Ox O2 Delivery O2 Flow Rate FiO2 08/04/20 09:33 Venturi Mask 10.0 08/04/20 06:13 97.0 113 35 138/88 94 Venturi Mask 10.0 40 08/04/20 05:20 96.6 106 27 128/76 96 Venturi Mask 08/04/20 02:07 85 32 115/65 96 08/04/20 01:45 98.6 109 32 125/71 95 Venturi Mask 10.0 45 08/04/20 01:37 109 37 125/71 96 08/04/20 00:18 98.6 109 28 117/84 93 Venturi Mask 10.0 45 08/03/20 23:59 95 10.0 45 08/03/20 23:20 98.6 109 21 109/71 97 Bi-pap 50 08/03/20 23:16 98.6 08/03/20 22:20 115 25 101/60 98 Bi-pap 50 08/03/20 20:28 50 08/03/20 19:50 130 38 100 Bi-Pap 100 08/03/20 19:46 103.0 130 30 100/77 100 Bi-pap 08/03/20 19:46 130 30 Bi-pap 08/03/20 19:40 132 41 100 Bi-Pap 100 08/03/20 19:28 133 37 100 Bi-Pap 100 133 37 100 100 08/03/20 18:42 102.9 136 20 122/74 (90) 95 Nasal Cannula 2.0 Intake and Output 08/03/20 08/04/20 19:00 07:00 Intake Total 3250 ml Output Total 400 ml Balance 2850 ml Intake IV Total 3250 ml Output Urine Total 400 ml Laboratory Tests Test 08/03/20 18:45 08/03/20 19:08 08/03/20 19:41 08/03/20 19:55 Lactic Acid Level 1.90 mmol/L (0.4-2.0) White Blood Count 6.3 K/UL (4.8-10.8) Red Blood Count 4.34 M/UL (4.70-6.10) L Hemoglobin 11.9 G/DL (14.2-18.0) L Hematocrit 40.0 % (42.0-52.0) L Mean Corpuscular Volume 92 FL (80-99) Mean Corpuscular Hemoglobin 27.4 PG (27.0-31.0) Mean Corpuscular Hemoglobin Concent 29.8 G/DL (32.0-36.0) L Red Cell Distribution Width 14.2 % (11.6-14.8) Platelet Count 267 K/UL (150-450) Mean Platelet Volume 5.7 FL (6.5-10.1) L Neutrophils (%) (Auto) % (45.0-75.0) Lymphocytes (%) (Auto) % (20.0-45.0) Monocytes (%) (Auto) % (1.0-10.0) Eosinophils (%) (Auto) % (0.0-3.0) Basophils (%) (Auto) % (0.0-2.0) Differential Total Cells Counted 100 Neutrophils % (Manual) 84 % (45-75) H Lymphocytes % (Manual) 15 % (20-45) L Monocytes % (Manual) 1 % (1-10) Eosinophils % (Manual) 0 % (0-3) Basophils % (Manual) 0 % (0-2) Band Neutrophils 0 % (0-8) Platelet Estimate Adequate Platelet Morphology Normal Red Blood Cell Morphology Normal Prothrombin Time 12.3 SEC (9.30-11.50) H Prothromb Time International Ratio 1.1 (0.9-1.1) Activated Partial Thromboplast Time 22 SEC (23-33) L D-Dimer 0.36 mg/L FEU (0.00-0.49) Sodium Level 141 MMOL/L (136-145) Potassium Level 4.4 MMOL/L (3.5-5.1) Chloride Level 101 MMOL/L (98-107) Carbon Dioxide Level 36 MMOL/L (21-32) H Anion Gap 4 mmol/L (5-15) L Blood Urea Nitrogen 18 mg/dL (7-18) Creatinine 1.0 MG/DL (0.55-1.30) Estimat Glomerular Filtration Rate > 60 mL/min (>60) Glucose Level 107 MG/DL (74-106) H Calcium Level 9.2 MG/DL (8.5-10.1) Ferritin 34 NG/ML (8-388) Total Bilirubin 0.8 MG/DL (0.2-1.0) Aspartate Amino Transf (AST/SGOT) 22 U/L (15-37) Alanine Aminotransferase (ALT/SGPT) 34 U/L (12-78) Alkaline Phosphatase 68 U/L (46-116) Lactate Dehydrogenase 263 U/L (81-234) H Total Creatine Kinase 72 U/L (26-308) Creatine Kinase MB 1.4 NG/ML (0.0-3.6) Creatine Kinase MB Relative Index 1.9 Troponin I 0.000 ng/mL (0.000-0.056) C-Reactive Protein, Quantitative 6.3 mg/dL (0.00-0.90) H Pro-B-Type Natriuretic Peptide 39 pg/mL (0-125) Total Protein 7.5 G/DL (6.4-8.2) Albumin 3.4 G/DL (3.4-5.0) Globulin 4.1 g/dL Albumin/Globulin Ratio 0.8 (1.0-2.7) L Lipase 73 U/L (73-393) Urine Color Yellow Urine Appearance Slightly cloudy Urine pH 6 (4.5-8.0) Urine Specific [place] 1.010 (1.005-1.035) Urine Protein 1+ (NEGATIVE) H Urine Glucose (UA) Negative (NEGATIVE) Urine Ketones Negative (NEGATIVE) Urine Blood 4+ (NEGATIVE) H Urine Nitrite Negative (NEGATIVE) Urine Bilirubin Negative (NEGATIVE) Urine Urobilinogen 1 MG/DL (0.0-1.0) H Urine Leukocyte Esterase 2+ (NEGATIVE) H Urine RBC 20-30 /HPF (0 - 0) H Urine WBC 15-20 /HPF (0 - 0) H Urine Squamous Epithelial Cells Few /LPF (NONE/OCC) Urine Bacteria Many /HPF (NONE) H Arterial Blood pH 7.398 (7.350-7.450) Arterial Blood Partial Pressure CO2 55.0 mmHg (35.0-45.0) H Arterial Blood Partial Pressure O2 106.8 mmHg (75.0-100.0) H Arterial Blood HCO3 33.2 mmol/L (22.0-26.0) H Arterial Blood Oxygen Saturation 97.7 % (95-100) Arterial Blood Base Excess 6.9 (-2-2) H Chadwick Test Positive Test 08/04/20 09:34 Troponin I Pending Microbiology Date/Time Source Procedure Growth Status 08/03/20 19:41 Urine,Clean Catch Urine Culture - Preliminary NO GROWTH Resulted Devyn Magdaleno MD Aug 04, 2020 10:08
--- NOTE | 2020-08-04 10:44 | Consultation ---
DATE OF CONSULTATION: 08/04/2020 CARDIOLOGY CONSULTATION CONSULTING PHYSICIAN: Devyn Magdaleno MD REFERRING PHYSICIAN: Torres Saul MD REASON FOR CONSULTATION: Tachycardia and shortness of breath. HISTORY OF PRESENT ILLNESS: The patient is an 79-year-old gentleman with history of hypertension, congestive heart failure as well as recent COVID in February 2020 who was brought in from assisted facility for respiratory distress, fever, and tachycardia. The patient also has history of COPD, was recently vaccinated for COVID. The patient was tachycardic, heart rate around 130s and currently on 10 liters Venturi mask. REVIEW OF SYSTEMS: Negative other than what was mentioned in history of present illness. PAST MEDICAL HISTORY: As mentioned above. FAMILY HISTORY: Noncontributory. SOCIAL HISTORY: [facility] resident. Does not smoke or drink alcohol. PHYSICAL EXAMINATION: VITAL SIGNS: Show blood pressure of 138/88, pulse 113, respirations 20, temperature 97. HEAD AND NECK: Showed no JVD. LUNGS: Coarse rhonchi. CARDIOVASCULAR: Regular S1 and S2 with no gallop. ABDOMEN: Soft. EXTREMITIES: No pitting edema. LABORATORY DATA: Labs show white count of 6.2, hemoglobin of 11.9, hematocrit 40, and platelet count is 267. Sodium 141, potassium 4.4, BUN of 18, creatinine of 1, and glucose of 107. First troponin is negative. Followup troponin is pending. ASSESSMENT AND PLAN: 1. Shortness of breath. The patient already on IV antibiotic as well as Venturi mask with 10 L oxygen. We will get an echocardiogram to evaluate for ejection fraction and wall motion abnormality. 2. Questionable congestive heart failure. BNP is only 39. 3. History of COVID pneumonia, status post vaccination for COVID. Currently on IV antibiotic for fever, shortness of breath, also on prednisone. 4. Questionable history of atrial fibrillation versus DVT. The patient is on Eliquis 2.5 mg b.i.d. the reason of which is not clear at this time. Thank you very much for allowing me to participate in the care of this patient. Please do not hesitate to contact me if you have any questions regarding my evaluation. The case was discussed with nurse. Sincerely, Devyn Magdaleno M.D. DR: Zi JOB#: [id number] CC:
--- NOTE | 2020-08-04 10:55 | NUR ---
RESPIRATORY NOTE: PT refused ABG at this time. PT claims that an ABG was already done for today but his last ABG was done 08/03/2020 @ 1955 while on BIPAP. PT is now on 10 Lpm venturi mask at 45% FiO2. His current saturation is 96%. He is breathing at an increased rate of 22-25 bpm and is breaths are shallow. PT is purse lip breathing. I explained to the patient that his Dr put in an order for an ABG to be done on venturi mask. Risk and benefits of having the ABG done were explained to PT multiple times but Patient continues to refuse. Will try at a later time. ION Truong aware.
--- NOTE | 2020-08-04 10:59 | NUR ---
NURSE NOTES: Patient refused ABG at this time, made aware MD would like to follow up, patient AOx3-4, refusing, Will monitor and will try again .
[2020-08-04] MEDS ORDERED: Albuterol/Ipratropium 3ml neb HHN SCH (11:00)
[2020-08-04] MEDS ORDERED: Vancomycin 1.25gm Premix q24h IVPB SCH (11:30)
--- NOTE | 2020-08-04 11:35 | NUR ---
CASE MANAGEMENT:REVIEW 79YR OLD MALE BIBA FROM [facility] CC: ALOC AND FEVER SI: COPD. PNA. UTI 103.0 136 30 109/71 95% ON 2L/NC PCO2+55.0 HC03+33.2 IS: PLACED O BIPAP THEN VENTURI MASK 10L/45% 1L NS BOLUS X2 IV SOLUMEDROL TYLENOL LA IV LEVAQUIN ALBUTEROL INH X3 :TO STEP DOWN UNIT DCP: FROM [facility]
[2020-08-04 12:00] VITALS: BP 140/88
--- NOTE | 2020-08-04 12:04 | Consultation ---
Consult Note Consult Note DATE OF CONSULTATION: 08/04/2020 CONSULTING PHYSICIAN: Micha Schneider MD. ATTENDING PHYSICIAN: Dr. Saul REASON FOR CONSULTATION: Hypoxic respiratory failure, history of COPD, pneumonia HISTORY OF PRESENT ILLNESS: This is an 79-year-old male with history of hypertension, COPD, and seizures, who was sent to ED from [facility] for evaluation of respiratory distress, fever, and tachypnea/tachycardia. Patient reports recently being vaccinated for COVID-19 at the facility. Patient reports history of COPD with use of oxygen at his residence. He is on 5 L of oxygen via nasal cannula constantly. Patient was noted to be tachypneic and wheezing in the ED. Patient was started on BiPAP with nebulizer treatments. ABG showed no significant hypoxia or hypercapnia. Patient was also found to have evidence for UTI. Chest x-ray showed right lower lobe infiltrate consistent with pneumonia. Patient was started on broad-spectrum antibiotics and was admitted to the hosp ital for further management. Patient is now seen in SDU. PAST MEDICAL HISTORY: COPD, hypertension, seizures MEDICATIONS: Acetaminophen, apixaban, baclofen, bisacodyl, artificial tears eyedrops, docusate, famotidine, gabapentin, [place], DuoNeb, Lidoderm patch, melatonin, multivitamin, Narcan, prednisone, tamsulosin ALLERGIES: Penicillins, phenytoin FAMILY HISTORY: Unknown PERSONAL/SOCIAL HISTORY: Resident of [facility] REVIEW OF SYSTEMS: Negative except mentioned in HPI PHYSICAL EXAMINATION: VITAL SIGNS: Blood pressure 138/88, heart rate 107, respiratory rate 25, weight 86 kg, height 185 cm. General: Patient laying in bed with mild respiratory distress, patient reports increased work of breathing compared to his baseline HEENT: Head exam reveals that the head is normocephalic, atraumatic without deformity or unusual swelling. Pupils are PERRLA. CHEST AND LUNGS: Accessory muscle use, coarse rhonchi CARDIOVASCULAR: Reveals normal S1, S2 without murmurs, rubs, or clicks. ABDOMEN: Soft with no tenderness or organomegaly. RECTAL: Deferred. MUSCULOSKELETAL: There is no tenderness to palpation. Range of motion is normal. NEUROLOGICAL: Alert and oriented x3 , nonfocal LABORATORY DATA: Laboratory testing shows WBC 4.34, hemoglobin 11.9, hematocrit 40.0. Chemistries show LDH 263, CRP 6.3, troponin 0 Urinalysis shows urine bacteria ABG shows normal pH despite hypercapnia D-dimer 0.36 Assessment/Plan 1. UTI -On empiric antibiotics -Follow-up UCx negative (08/03) 2. Pneumonia -On broad-spectrum antibiotics - CXR concerning for volume loss -> will order CT chest 3. COPD exacerbation -Continue breathing treatment -Continue supplemental oxygen and wean as tolerated -Currently on 10 L Venturi mask -Patient reports chronic use of oxygen 5L NC at his facility 4. Respiratory distress - Continue management as #3 - on steroid - Cardio ordered 2D Echo for questionable CHF 5. History of seizures -Risk of aspiration -Monitor for seizure activity 6. Elevated CRP -D-dimer wnl -His outpatient medications include Eliquis (hx of A fib?) - Continue Eliquis The care for this patient was discussed with my supervising physician. Time spent for this case was approximately 31 minutes. Edwin Beckham Aug 04, 2020 12:04
--- NOTE | 2020-08-04 12:52 | Infectious Diseases Prog Note ---
Assessment/Plan Assessment/Plan Full consult dictated: A) 1) pna, hypoxia, ? covid, ? hcap 2) uti 3) sepsis, fevers 4) pmh noted 5) allergies - pcn P) 1) vancomycin, cefepime and flagyl, patient given steroids 2) f/u on cultures, covid testing, labs, chest x-ray and CT chest 3) covid isolation 4) will f/u 5) thank you Subjective Allergies: Coded Allergies: PENICILLINS (Verified Allergy, Unknown, 03/10/20) PHENYTOIN (Verified Allergy, Unknown, 03/10/20) Objective Last 24 Hour Vital Signs Date Time Temp Pulse Resp B/P (MAP) Pulse Ox O2 Delivery O2 Flow Rate FiO2 08/04/20 12:24 106 08/04/20 09:33 Venturi Mask 10.0 08/04/20 08:51 107 25 95 Venturi Mask 10.0 45 08/04/20 08:51 95 Venturi Mask 10.0 45 08/04/20 06:13 97.0 113 35 138/88 94 Venturi Mask 10.0 40 08/04/20 05:20 96.6 106 27 128/76 96 Venturi Mask 08/04/20 02:07 85 32 115/65 96 08/04/20 01:45 98.6 109 32 125/71 95 Venturi Mask 10.0 45 08/04/20 01:37 109 37 125/71 96 08/04/20 00:18 98.6 109 28 117/84 93 Venturi Mask 10.0 45 08/03/20 23:59 95 10.0 45 08/03/20 23:20 98.6 109 21 109/71 97 Bi-pap 50 08/03/20 23:16 98.6 08/03/20 22:20 115 25 101/60 98 Bi-pap 50 08/03/20 20:28 50 08/03/20 19:50 130 38 100 Bi-Pap 100 08/03/20 19:46 103.0 130 30 100/77 100 Bi-pap 08/03/20 19:46 130 30 Bi-pap 08/03/20 19:40 132 41 100 Bi-Pap 100 08/03/20 19:28 133 37 100 Bi-Pap 100 133 37 100 100 08/03/20 18:42 102.9 136 20 122/74 (90) 95 Nasal Cannula 2.0 Height (Feet): 6 Height (Inches): 1.00 Weight (Pounds): 190 Microbiology Date/Time Source Procedure Growth Status 08/03/20 19:41 Urine,Clean Catch Urine Culture - Preliminary NO GROWTH Resulted Laboratory Tests Test 08/03/20 18:45 08/03/20 19:08 08/03/20 19:41 08/03/20 19:55 Lactic Acid Level 1.90 mmol/L (0.4-2.0) White Blood Count 6.3 K/UL (4.8-10.8) Red Blood Count 4.34 M/UL (4.70-6.10) L Hemoglobin 11.9 G/DL (14.2-18.0) L Hematocrit 40.0 % (42.0-52.0) L Mean Corpuscular Volume 92 FL (80-99) Mean Corpuscular Hemoglobin 27.4 PG (27.0-31.0) Mean Corpuscular Hemoglobin Concent 29.8 G/DL (32.0-36.0) L Red Cell Distribution Width 14.2 % (11.6-14.8) Platelet Count 267 K/UL (150-450) Mean Platelet Volume 5.7 FL (6.5-10.1) L Neutrophils (%) (Auto) % (45.0-75.0) Lymphocytes (%) (Auto) % (20.0-45.0) Monocytes (%) (Auto) % (1.0-10.0) Eosinophils (%) (Auto) % (0.0-3.0) Basophils (%) (Auto) % (0.0-2.0) Differential Total Cells Counted 100 Neutrophils % (Manual) 84 % (45-75) H Lymphocytes % (Manual) 15 % (20-45) L Monocytes % (Manual) 1 % (1-10) Eosinophils % (Manual) 0 % (0-3) Basophils % (Manual) 0 % (0-2) Band Neutrophils 0 % (0-8) Platelet Estimate Adequate Platelet Morphology Normal Red Blood Cell Morphology Normal Prothrombin Time 12.3 SEC (9.30-11.50) H Prothromb Time International Ratio 1.1 (0.9-1.1) Activated Partial Thromboplast Time 22 SEC (23-33) L D-Dimer 0.36 mg/L FEU (0.00-0.49) Sodium Level 141 MMOL/L (136-145) Potassium Level 4.4 MMOL/L (3.5-5.1) Chloride Level 101 MMOL/L (98-107) Carbon Dioxide Level 36 MMOL/L (21-32) H Anion Gap 4 mmol/L (5-15) L Blood Urea Nitrogen 18 mg/dL (7-18) Creatinine 1.0 MG/DL (0.55-1.30) Estimat Glomerular Filtration Rate > 60 mL/min (>60) Glucose Level 107 MG/DL (74-106) H Calcium Level 9.2 MG/DL (8.5-10.1) Ferritin 34 NG/ML (8-388) Total Bilirubin 0.8 MG/DL (0.2-1.0) Aspartate Amino Transf (AST/SGOT) 22 U/L (15-37) Alanine Aminotransferase (ALT/SGPT) 34 U/L (12-78) Alkaline Phosphatase 68 U/L (46-116) Lactate Dehydrogenase 263 U/L (81-234) H Total Creatine Kinase 72 U/L (26-308) Creatine Kinase MB 1.4 NG/ML (0.0-3.6) Creatine Kinase MB Relative Index 1.9 Troponin I 0.000 ng/mL (0.000-0.056) C-Reactive Protein, Quantitative 6.3 mg/dL (0.00-0.90) H Pro-B-Type Natriuretic Peptide 39 pg/mL (0-125) Total Protein 7.5 G/DL (6.4-8.2) Albumin 3.4 G/DL (3.4-5.0) Globulin 4.1 g/dL Albumin/Globulin Ratio 0.8 (1.0-2.7) L Lipase 73 U/L (73-393) Urine Color Yellow Urine Appearance Slightly cloudy Urine pH 6 (4.5-8.0) Urine Specific [place] 1.010 (1.005-1.035) Urine Protein 1+ (NEGATIVE) H Urine Glucose (UA) Negative (NEGATIVE) Urine Ketones Negative (NEGATIVE) Urine Blood 4+ (NEGATIVE) H Urine Nitrite Negative (NEGATIVE) Urine Bilirubin Negative (NEGATIVE) Urine Urobilinogen 1 MG/DL (0.0-1.0) H Urine Leukocyte Esterase 2+ (NEGATIVE) H Urine RBC 20-30 /HPF (0 - 0) H Urine WBC 15-20 /HPF (0 - 0) H Urine Squamous Epithelial Cells Few /LPF (NONE/OCC) Urine Bacteria Many /HPF (NONE) H Arterial Blood pH 7.398 (7.350-7.450) Arterial Blood Partial Pressure CO2 55.0 mmHg (35.0-45.0) H Arterial Blood Partial Pressure O2 106.8 mmHg (75.0-100.0) H Arterial Blood HCO3 33.2 mmol/L (22.0-26.0) H Arterial Blood Oxygen Saturation 97.7 % (95-100) Arterial Blood Base Excess 6.9 (-2-2) H Chadwick Test Positive Test 08/04/20 09:34 Troponin I 0.000 ng/mL (0.000-0.056) Current Medications Medications (Trade) Dose Ordered Sig/Armand Route PRN Reason Start Time Stop Time Status Last Admin Dose Admin Albuterol/ Ipratropium (Combivent Respimat) 1 puff Q4H PRN INH Shortness of Breath 08/04/20 10:00 09/03/20 09:59 Albuterol/ Ipratropium (Combivent Respimat) 1 puff Q8HR INH 08/04/20 09:30 09/03/20 09:29 08/04/20 11:09 Apixaban (Eliquis) 2.5 mg BID ORAL 08/04/20 09:30 11/02/20 09:29 08/04/20 09:59 Cefepime HCl 1 gm/ Dextrose 55 ml @ 110 mls/hr EVERY 12 HOURS IV 08/04/20 21:00 08/11/20 20:59 Gabapentin (Neurontin) 300 mg TID NG 08/05/20 09:00 09/04/20 08:59 Metronidazole 100 ml @ 100 mls/hr Q8HR IVPB 08/04/20 14:00 08/11/20 13:59 Prednisone (predniSONE) 20 mg DAILY ORAL 08/04/20 09:30 09/03/20 09:29 08/04/20 09:59 Vancomycin HCl (Vanco pharmacy to dose) 1 ea DAILY PRN MISC Per rx protocol 08/04/20 09:15 3/18/21 09:14 Vancomycin HCl 1 gm/Sodium Chloride 275 ml @ 183.708 mls/hr Q12HR IVPB 08/05/20 00:00 08/10/20 00:00 Kemar Nichole MD Aug 04, 2020 12:51
[2020-08-04 16:00] VITALS: BP 142/80
--- NOTE | 2020-08-04 16:00 | NUR ---
NURSE NOTES: Bhavani CHURCHILL made aware of patient refused ABG, per Bhavani CHURCHILL, abg tomorrow am. Order noted, entered, carried out.
--- NOTE | 2020-08-04 17:06 | Consultation ---
History of Present Illness General Date patient seen: Aug 04, 2020 Reason for Hospitalization: Altered Mental Status Present Illness HPI This is an 79 year old male presented to [facility] ED from care facility for evaluation of respiratory insufficiency, altered mental status, and noted to have abdominal distention. admitted for care and management. limited history and participate in exam given medical condition at this time. Chart and EMR reviewed. surgery called to evaluate abd distention given limited patient responsiveness. Allergies: Coded Allergies: PENICILLINS (Verified Allergy, Unknown, 03/10/20) PHENYTOIN (Verified Allergy, Unknown, 03/10/20) COVID-19 Screening Contact w/high risk pt: No Experienced COVID-19 symptoms?: Yes Coronavirus symptoms experienc: Shortness of Breath Medication History Scheduled Apixaban (Eliquis*), 2.5 MG PO Q12HR, (Reported) Baclofen* (Baclofen*), 5 MG ORAL Q12HR, (Reported) Bisacodyl* (Dulcolax*), 5 MG ORAL QHS, (Reported) Dextran 70/Hypromellose (Artificial Tears Eye Drops*), 1 DROP BOTH EYES Q8HR, (Reported) Docusate Sodium* (Docusate Sodium*), 100 MG ORAL DAILY, (Reported) Famotidine* (Pepcid 20mg tablet*), 40 MG ORAL DAILY, (Reported) Gabapentin* (Gabapentin*), 300 MG ORAL THREE TIMES A DAY, (Reported) Multivitamin with Minerals (Multivitamins with Minerals), 1 TAB ORAL DAILY, (Reported) [place]-3 Fatty Acids/Fish Oil* (Fish Oil 1,000 Mg Softgel*), 2 CAP ORAL DAILY, (Reported) Prednisone* (Prednisone*), 20 MG ORAL DAILY, (Reported) Tamsulosin HCl (Flomax), 0.4 MG ORAL DAILY, (Reported) Scheduled PRN Acetaminophen* (Acetaminophen 325MG Tablet*), 650 MG ORAL Q4H PRN for TEMP>100F, (Reported) Acetaminophen* (Acetaminophen 325MG Tablet*), 650 MG ORAL Q4H PRN for Mild Pain (Pain Scale 1-3), (Reported) Hydrocodone Bit/Acetaminophen 10-325* ([place] 10-325*), 1 TAB ORAL Q4H PRN for Severe Pain (Pain Scale 7-10), (Reported) Ipratropium/Albuterol Sulfate (DuoNeb 0.5-3(2.5)mg/3ml), 3 ML HHN Q4HR PRN for COPD, (Reported) Naloxone HCl (Narcan), 4 MG NS EVERY 2 MINUTES PRN for UNRESPONSIVE / RR<12, (Re ported) Miscellaneous Medications [ diclofenac], (Reported) Discontinued Medications Acetaminophen With Codeine (T#3) (Tylenol #3 Tab*), 1 TAB ORAL Q4H PRN for Moderate Pain (Pain Scale 4-6), (Reported) Discontinued Reason: Therapy completed Azithromycin (Azithromycin), 500 MG IVPB Q24H, (Reported) Discontinued Reason: Therapy completed Chlorhexidine Gluconate (Peridex), 15 ML MM BID, (Reported) Discontinued Reason: Therapy completed Lidocaine Patch* (Lidoderm Patch*), 1 PATCH TOPIC DAILY, (Reported) Discontinued Reason: Therapy completed Melatonin (Melatonin), 3 MG ORAL BEDTIME, (Reported) Discontinued Reason: Therapy completed Patient History Limited by: age, medical condition History Provided By: Medical Record, PMD Healthcare decision maker Resuscitation status Advanced Directive on File Past Medical/Surgical History Past Medical/Surgical History: (1) Multiple pulmonary nodules (2) UTI (urinary tract infection) (3) Pneumonia (4) Respiratory failure with hypoxia (5) Pneumonia due to COVID-19 virus (6) History of CVA (cerebrovascular accident) (7) COPD (chronic obstructive pulmonary disease) (8) HTN (hypertension) (9) Hx of prostatic malignancy (10) Major depression (11) Seizure disorder Review of Systems Review of Symptoms General ROS: no weight loss or fever Psychological ROS: no depression or mood changes, no memory loss Ophthalmic ROS: no visual changes or eye irritation ENT ROS: no nasal congestion, hearing loss, dizziness Allergy and Immunology ROS: no allergic symptoms or urticaria Hematological and Lymphatic ROS: no swollen glands, unusual bleeding or bruising Endocrine ROS: no polyuria, polydipsia, weight changes, temperature intolerance Respiratory ROS: no cough, shortness of breath, or wheezing Cardiovascular ROS: no chest pain or dyspnea on exertion Gastrointestinal ROS: denies abdominal pain, bright red blood in stool. Musculoskeletal ROS: no myalgias or arthralgias Neurological ROS: no TIA or stroke symptoms Dermatological ROS: no new or changing skin lesions, rashes or pruritis limited given medical condition Physical Exam Physical Exam Sp02 EP Interpretation: reviewed, normal General Appearance: alert, GCS 15, non-toxic, mild distress Head: normocephalic, atraumatic Eyes: bilateral eye normal inspection, bilateral eye PERRL ENT: hearing grossly normal, normal pharynx, no angioedema, normal voice Neck: full range of motion, supple/symm/no masses Respiratory: chest non-tender, accessory muscle use, speaking full sentences, wheezing Cardiovascular #1: no edema, tachycardia Cardiovascular #2: 2+ carotid (R), 2+ carotid (L), 2+ radial (R), 2+ radial (L), 2+ dorsalis pedis (R), 2+ dorsalis pedis (L) Gastrointestinal: normal bowel sounds, non tender, soft, non-distended, no guarding, no rebound Rectal: deferred Genitourinary: normal inspection, no CVA tenderness Musculoskeletal: back normal, normal range of motion, gait/station normal, non- tender Neurologic: other - nonverbal Psychiatric: other - nonverbal Reflexes: 3+ bicep (R), 3+ bicep (L), 3+ tricep (R), 3+ tricep (L), 3+ knee (R), 3+ knee (L) Skin: other - see nursing notes Lymphatic: no adenopathy Last 24 Hour Vital Signs Date Time Temp Pulse Resp B/P (MAP) Pulse Ox O2 Delivery O2 Flow Rate FiO2 08/04/20 16:00 Venturi Mask 08/04/20 12:24 106 08/04/20 12:00 10.0 40 08/04/20 12:00 106 08/04/20 12:00 97.7 89 22 140/88 (105) 90 08/04/20 12:00 Venturi Mask 08/04/20 09:33 Venturi Mask 10.0 08/04/20 08:51 107 25 95 Venturi Mask 10.0 45 08/04/20 08:51 95 Venturi Mask 10.0 45 08/04/20 06:13 97.0 113 35 138/88 94 Venturi Mask 10.0 40 08/04/20 05:20 96.6 106 27 128/76 96 Venturi Mask 08/04/20 02:07 85 32 115/65 96 08/04/20 01:45 98.6 109 32 125/71 95 Venturi Mask 10.0 45 08/04/20 01:37 109 37 125/71 96 08/04/20 00:18 98.6 109 28 117/84 93 Venturi Mask 10.0 45 08/03/20 23:59 95 10.0 45 08/03/20 23:20 98.6 109 21 109/71 97 Bi-pap 50 08/03/20 23:16 98.6 08/03/20 22:20 115 25 101/60 98 Bi-pap 50 08/03/20 20:28 50 08/03/20 19:50 130 38 100 Bi-Pap 100 08/03/20 19:46 103.0 130 30 100/77 100 Bi-pap 08/03/20 19:46 130 30 Bi-pap 08/03/20 19:40 132 41 100 Bi-Pap 100 08/03/20 19:28 133 37 100 Bi-Pap 100 133 37 100 100 08/03/20 18:42 102.9 136 20 122/74 (90) 95 Nasal Cannula 2.0 Intake and Output 08/03/20 08/04/20 19:00 07:00 Intake Total 3250 ml Output Total 400 ml Balance 2850 ml Intake IV Total 3250 ml Output Urine Total 400 ml Laboratory Tests Test 08/03/20 18:45 08/03/20 19:08 08/03/20 19:41 08/03/20 19:55 Lactic Acid Level 1.90 mmol/L (0.4-2.0) White Blood Count 6.3 K/UL (4.8-10.8) Red Blood Count 4.34 M/UL (4.70-6.10) L Hemoglobin 11.9 G/DL (14.2-18.0) L Hematocrit 40.0 % (42.0-52.0) L Mean Corpuscular Volume 92 FL (80-99) Mean Corpuscular Hemoglobin 27.4 PG (27.0-31.0) Mean Corpuscular Hemoglobin Concent 29.8 G/DL (32.0-36.0) L Red Cell Distribution Width 14.2 % (11.6-14.8) Platelet Count 267 K/UL (150-450) Mean Platelet Volume 5.7 FL (6.5-10.1) L Neutrophils (%) (Auto) % (45.0-75.0) Lymphocytes (%) (Auto) % (20.0-45.0) Monocytes (%) (Auto) % (1.0-10.0) Eosinophils (%) (Auto) % (0.0-3.0) Basophils (%) (Auto) % (0.0-2.0) Differential Total Cells Counted 100 Neutrophils % (Manual) 84 % (45-75) H Lymphocytes % (Manual) 15 % (20-45) L Monocytes % (Manual) 1 % (1-10) Eosinophils % (Manual) 0 % (0-3) Basophils % (Manual) 0 % (0-2) Band Neutrophils 0 % (0-8) Platelet Estimate Adequate Platelet Morphology Normal Red Blood Cell Morphology Normal Prothrombin Time 12.3 SEC (9.30-11.50) H Prothromb Time International Ratio 1.1 (0.9-1.1) Activated Partial Thromboplast Time 22 SEC (23-33) L D-Dimer 0.36 mg/L FEU (0.00-0.49) Sodium Level 141 MMOL/L (136-145) Potassium Level 4.4 MMOL/L (3.5-5.1) Chloride Level 101 MMOL/L (98-107) Carbon Dioxide Level 36 MMOL/L (21-32) H Anion Gap 4 mmol/L (5-15) L Blood Urea Nitrogen 18 mg/dL (7-18) Creatinine 1.0 MG/DL (0.55-1.30) Estimat Glomerular Filtration Rate > 60 mL/min (>60) Glucose Level 107 MG/DL (74-106) H Calcium Level 9.2 MG/DL (8.5-10.1) Ferritin 34 NG/ML (8-388) Total Bilirubin 0.8 MG/DL (0.2-1.0) Aspartate Amino Transf (AST/SGOT) 22 U/L (15-37) Alanine Aminotransferase (ALT/SGPT) 34 U/L (12-78) Alkaline Phosphatase 68 U/L (46-116) Lactate Dehydrogenase 263 U/L (81-234) H Total Creatine Kinase 72 U/L (26-308) Creatine Kinase MB 1.4 NG/ML (0.0-3.6) Creatine Kinase MB Relative Index 1.9 Troponin I 0.000 ng/mL (0.000-0.056) C-Reactive Protein, Quantitative 6.3 mg/dL (0.00-0.90) H Pro-B-Type Natriuretic Peptide 39 pg/mL (0-125) Total Protein 7.5 G/DL (6.4-8.2) Albumin 3.4 G/DL (3.4-5.0) Globulin 4.1 g/dL Albumin/Globulin Ratio 0.8 (1.0-2.7) L Lipase 73 U/L (73-393) Urine Color Yellow Urine Appearance Slightly cloudy Urine pH 6 (4.5-8.0) Urine Specific [place] 1.010 (1.005-1.035) Urine Protein 1+ (NEGATIVE) H Urine Glucose (UA) Negative (NEGATIVE) Urine Ketones Negative (NEGATIVE) Urine Blood 4+ (NEGATIVE) H Urine Nitrite Negative (NEGATIVE) Urine Bilirubin Negative (NEGATIVE) Urine Urobilinogen 1 MG/DL (0.0-1.0) H Urine Leukocyte Esterase 2+ (NEGATIVE) H Urine RBC 20-30 /HPF (0 - 0) H Urine WBC 15-20 /HPF (0 - 0) H Urine Squamous Epithelial Cells Few /LPF (NONE/OCC) Urine Bacteria Many /HPF (NONE) H Arterial Blood pH 7.398 (7.350-7.450) Arterial Blood Partial Pressure CO2 55.0 mmHg (35.0-45.0) H Arterial Blood Partial Pressure O2 106.8 mmHg (75.0-100.0) H Arterial Blood HCO3 33.2 mmol/L (22.0-26.0) H Arterial Blood Oxygen Saturation 97.7 % (95-100) Arterial Blood Base Excess 6.9 (-2-2) H Chadwick Test Positive Test 08/04/20 09:34 Troponin I 0.000 ng/mL (0.000-0.056) Microbiology Date/Time Source Procedure Growth Status 08/03/20 19:41 Urine,Clean Catch Urine Culture - Preliminary NO GROWTH Resulted Height (Feet): 6 Height (Inches): 1.00 Weight (Pounds): 190 Medications Current Medications Medications (Trade) Dose Ordered Sig/Armand Route PRN Reason Start Time Stop Time Status Last Admin Dose Admin Albuterol/ Ipratropium (Combivent Respimat) 1 puff Q4H PRN INH Shortness of Breath 08/04/20 10:00 3/18/21 09:59 Albuterol/ Ipratropium (Combivent Respimat) 1 puff Q8HR INH 08/04/20 09:30 09/03/20 09:29 08/04/20 15:22 Apixaban (Eliquis) 2.5 mg BID ORAL 08/04/20 09:30 11/02/20 09:29 08/04/20 09:59 Cefepime HCl 1 gm/ Dextrose 55 ml @ 110 mls/hr EVERY 12 HOURS IV 08/04/20 21:00 08/11/20 20:59 Gabapentin (Neurontin) 300 mg TID NG 08/05/20 09:00 09/04/20 08:59 Metronidazole 100 ml @ 100 mls/hr Q8HR IVPB 08/04/20 14:00 08/11/20 13:59 08/04/20 15:22 Prednisone (predniSONE) 20 mg DAILY ORAL 08/04/20 09:30 09/03/20 09:29 08/04/20 09:59 Vancomycin HCl (Vanco pharmacy to dose) 1 ea DAILY PRN MISC Per rx protocol 08/04/20 09:15 09/03/20 09:14 Vancomycin HCl 1 gm/Sodium Chloride 275 ml @ 183.708 mls/hr Q12HR IVPB 08/05/20 00:00 08/10/20 00:00 Assessment/Plan Problem List: (1) Abdominal distension Assessment & Plan: 79M abdominal distention, respiratory decline, altered mental status. on exam noted abd soft, mild distended, non tender. no n/v/f/c. unlikely aspiration. non tender one exam. pending urine and covid test. no a cute surgical intervention. hold on ct. kub ordered. will follow with exam and recs. keep npo for now. iv fluids. respiratory pulm support. will follow with recs thank you ICD Codes: R14.0 - Abdominal distension (gaseous) SNOMED: 06818025 (2) UTI (urinary tract infection) ICD Codes: N39.0 - Urinary tract infection, site not specified SNOMED: 87844553 Qualifiers: Qualified Codes: N39.0 - Urinary tract infection, site not specified (3) Pneumonia ICD Codes: J18.9 - Pneumonia, unspecified organism SNOMED: 379138019 Qualifiers: Qualified Codes: J18.9 - Pneumonia, unspecified organism (4) Multiple pulmonary nodules ICD Codes: R91.8 - Other nonspecific abnormal finding of lung field SNOMED: 289128565 (5) Respiratory failure with hypoxia ICD Codes: J96.91 - Respiratory failure, unspecified with hypoxia SNOMED: 36860014044159544, 461977429 (6) Pneumonia due to COVID-19 virus ICD Codes: U07.1 - COVID-19; J12.89 - Other viral pneumonia SNOMED: 808751439, 073605174 (7) History of CVA (cerebrovascular accident) ICD Codes: Z86.73 - Personal history of transient ischemic attack (TIA), and cerebral infarction without residual deficits SNOMED: 001307447 (8) COPD (chronic obstructive pulmonary disease) ICD Codes: J44.9 - Chronic obstructive pulmonary disease, unspecified SNOMED: 38079286 Qualifiers: Qualified Codes: J44.9 - Chronic obstructive pulmonary disease, unspecified (9) HTN (hypertension) ICD Codes: I10 - Essential (primary) hypertension SNOMED: 77178926 (10) Hx of prostatic malignancy ICD Codes: Z85.46 - Personal history of malignant neoplasm of prostate SNOMED: 805061609 (11) Major depression ICD Codes: F32.9 - Major depressive disorder, single episode, unspecified SNOMED: 257309721 (12) Seizure disorder ICD Codes: G40.909 - Epilepsy, unspecified, not intractable, without status epilepticus SNOMED: 617542116 Destin Brown Aug 04, 2020 17:06
--- NOTE | 2020-08-04 17:33 | NUR ---
NURSE NOTES: Per Bhavani CHURCHILL, can do CT chest at night or early in the morning, CT department made aware.
--- NOTE | 2020-08-04 17:43 | Cardiology Report ---
APPROVED REPORT EKG Measurement Heart [id number] <Conclusion> Sinus tachycardia with premature atrial complexes Right atrial enlargement Left axis deviation Pulmonary disease pattern Abnormal ECG
[2020-08-04] MEDS ORDERED: FISH OIL 1,0001 EAC1 ORAL (18:09)
--- NOTE | 2020-08-04 18:34 | History & Physical ---
History and Physical History & Physicial Dictated for Int Med-DR Saul no. [id number] Pablo Hickman MD Aug 04, 2020 18:34
--- NOTE | 2020-08-04 18:57 | Diagnostic Imaging Report ---
Indication: Shortness of breath Technique: One view of the chest Comparison: 03/17/2020 Findings: There is pleural fluid on the right, increased from the prior study. Interim development of right basilar infiltrate. Left lung and pleural space remain clear. Impression: Right pleural effusion and right basilar infiltrate
--- NOTE | 2020-08-04 19:00 | NUR ---
NURSE HAND-OFF REPORT: Important Events on Shift: Admitted to [facility] Patient Status: stable/guarded Diet: regular Pending Orders: na Pending Results/Labs:PUI, MRSA, CRE Pending MD notification:NA Latest Vital Signs: Temperature 97.1 , Pulse 106 , B/P 142 /80 , Respiratory Rate 20 , O2 SAT 98 , Venturi Mask, O2 Flow Rate 10.0 . Vital Sign Comment: stable EKG Rhythm: Sinus Tachycardia Rhythm change?: N MD Notified?: - MD Response: Latest Castro Fall Score: 50 Fall Risk: High Risk Safety Measures: Call light Within Reach, Bed Alarm Zone 2, Side Rails Side Rails x2, Bed position Low and Locked. Fall Precautions: Yellow Socks Yellow Gown Door Sign Patient Fall Education Report given to ION Mojica.
--- NOTE | 2020-08-04 19:45 | NUR ---
NURSE NOTES: Received report from RN. Patient found in room to be short of breath on venturi mask at 41%. Patient slow to respond. Patient put on 15L non-rebreather o2 sats increasing to 70%. Patient more awake. RT at bedside and patient was placed on bipap due to decreased 02 stats. the bipap was placed at 20/8 at 100% FIO2 patient saturation now 95%. Order was also placed for stat ABG. RN paged MD to make aware. RN will continue to monitor.
[2020-08-04 20:00] VITALS: BP 106/67
--- NOTE | 2020-08-04 20:36 | NUR ---
NURSE NOTES: RN paged Dr. Schneider in regards to patients ABG after bipap. Awaiting a callback
--- NOTE | 2020-08-04 20:59 | History and Physical Report ---
DATE OF ADMISSION: 08/03/[address] Saul. CHIEF COMPLAINT: The patient is an 79-year-old male who presents with a chief complaint of respiratory distress. HISTORY OF PRESENT ILLNESS: The patient is a resident of [facility]. According to staff at [facility], the patient began to experience shortness of breath yesterday, 08/03/2020. The patient presented to [facility]. The patient was found to be hypoxic. An x-ray revealed right lung opacity consistent with pneumonia. The patient is admitted with respiratory failure and right-sided pneumonia. REVIEW OF SYSTEMS: Unable to assess secondary to the patient's mental status. PAST MEDICAL HISTORY: Significant for: 1. Hypertension. 2. Congestive heart failure. 3. Chronic obstructive pulmonary disease. 4. History of prostate cancer. 5. Anemia. 6. Cerebrovascular disease, status post cerebrovascular accident. 7. Peripheral vascular disease. 8. Gastroesophageal reflux disease. 9. Major depression. 10. Seizure disorder. 11. History of COVID-19 positive, diagnosed on 03/05/2020. PAST SURGICAL HISTORY: The patient denies. CURRENT MEDICATIONS: 1. Tylenol 650 mg p.o. q.4h. p.r.n. 2. Eliquis 2.5 mg p.o. twice daily. 3. Baclofen 10 mg p.o. q.12h. 4. Docusate 100 mg p.o. daily. 5. Famotidine 40 mg p.o. daily. 6. Gabapentin 300 mg p.o. 3 times daily. 7. Everett 10/325 mg 1 tablet p.o. q.6h. p.r.n. 8. DuoNeb nebulized q.4h. p.r.n. 9. Multivitamin 1 tablet p.o. daily. 10. Montrose-3 fatty acid 1000 mg p.o. twice daily. 11. Prednisone 20 mg p.o. daily. 12. Tamsulosin 0.4 mg p.o. daily. ALLERGIES: Penicillin and phenytoin. SOCIAL HISTORY: The patient is a . The patient denies tobacco or alcohol use. PHYSICAL EXAMINATION: VITAL SIGNS: Temperature 102.9 degrees Fahrenheit, pulse 136, respiratory rate 20, blood pressure 122/74, pulse ox 95% on 2 liters nasal cannula. GENERAL: The patient is well-developed, well-nourished male, in moderate respiratory distress. HEENT: Eyes, pupils are equal and responsive to light and accommodation. Extraocular movements are intact. NECK: Supple. No lymphadenopathy. CHEST: Lungs are clear to auscultation bilaterally without wheezes or rales. CARDIOVASCULAR: Regular rhythm and rate. S1-S2 are normal without murmurs, rubs, or gallops. ABDOMEN: Soft, nontender, and nondistended. Positive bowel sounds. No evidence of hepatosplenomegaly. Currently, no rebound or guarding noted. EXTREMITIES: Negative for clubbing, cyanosis, or edema. RECTAL/GENITAL: Not performed. NEUROLOGIC: Cranial nerves II through XII are grossly intact without focal deficits. Motor strength is 5/5 bilaterally. Deep tendon reflexes are 2+ plantar. LABORATORY STUDIES: WBC 6.2, hemoglobin 11.9, hematocrit 40.0, platelets 267,000. Sodium 141, potassium 4.4, chloride 101, CO2 of 36. BUN 18, creatinine 1.0, glucose 107. Troponin 0.0. Chest x-ray revealed right-sided opacity consistent with right-sided pneumonia. ASSESSMENT: This is an 79-year-old male with. 1. Respiratory failure. 2. Right-sided pneumonia. 3. Hypertension. 4. Congestive heart failure. 5. Chronic obstructive pulmonary disease. 6. Anemia. 7. Cerebrovascular disease, status post cerebrovascular accident. 8. Peripheral vascular disease. 9. Gastroesophageal reflux disease. 10. Major depression. 11. Seizure disorder. 12. History of COVID-19 positive in February 2020. 13. Benign prostatic hypertrophy. TREATMENT: 1. Respiratory failure/right-sided pneumonia. A pulmonary consultation has been obtained with Dr. Micha Schneider. The patient has been placed empirically on vancomycin and cefepime. An Infectious Disease consultation has been obtained with . Follow recommendations of Infectious Disease and Pulmonary. 2. Hypertension. The patient is currently hypotensive. 3. Congestive heart failure. 4. Chronic obstructive pulmonary disease. Continue DuoNeb as above. 5. Anemia. 6. Cerebrovascular disease. 7. Peripheral vascular disease. 8. Gastroesophageal reflux disease. Continue famotidine as above. 9. Major depression. Seizure disorder. 10. COVID-19 positive, history in February 2020. 11. Benign prostatic hypertrophy. Continue Flomax as above. Pablo Hickman M.D. DR: ENIO JOB#: [id number] CC:
[2020-08-04] MEDS: Cefepime HCl 1 GM in D5W 55 ML IV SCH (21:00)
[2020-08-04] MEDS ORDERED: LORazepam Inj 2mg/ml 1ml IV PRN (21:30)
[2020-08-05] VITALS (54 sets, daily range): BP systolic 50–142; BP diastolic 41–101
[2020-08-05] MEDS: Vancomycin 1 GM in NS 275 ML IVPB SCH ×3 (00:16→20:35)
--- NOTE | 2020-08-05 00:50 | NUR ---
NURSE NOTES: Patient tolerating Bipap. Patient had to be restrained due to pulling off bipap mask and dropping sats into the 60s. Patient confused at time. This Rn reorients and explains the importance of the bipap. Patient reposition for comfort. RN will continue to monitor.
[2020-08-05 04:29] LABS: HEMATOCRIT 37.2 % (42.0-52.0); MEAN CORPUSCULAR VOLUME 92 FL (80-99); PLATELET COUNT 290 K/UL (150-450); RED BLOOD COUNT 4.02 M/UL (4.70-6.10); WHITE BLOOD COUNT 12.3 K/UL (4.8-10.8)
[2020-08-05 04:53] LABS: ANION GAP 6 mmol/L (5-15); BLOOD UREA NITROGEN 19 mg/dL (7-18); CALCIUM 9.5 MG/DL (8.5-10.1); CARBON DIOXIDE 34 MMOL/L (21-32); CHLORIDE 106 MMOL/L (98-107); CREATININE 0.9 MG/DL (0.55-1.30); PHOSPHORUS 2.4 MG/DL (2.5-4.9); POTASSIUM 3.7 MMOL/L (3.5-5.1); SODIUM 146 MMOL/L (136-145)
--- NOTE | 2020-08-05 07:08 | NUR ---
NURSE HAND-OFF REPORT: Important Events on Shift: Patient Status: Diet: Pending Orders: Pending Results/Labs: Pending MD notification: Latest Vital Signs: Temperature 98.0 , Pulse 105 , B/P 113 /85 , Respiratory Rate 40 , O2 SAT 98 , Venturi Mask, O2 Flow Rate 10.0 . Vital Sign Comment: EKG Rhythm: Sinus Tachycardia Rhythm change?: N MD Notified?: - MD Response: Latest Castro Fall Score: 50 Fall Risk: High Risk Safety Measures: Call light Within Reach, Bed Alarm Zone 2, Side Rails Side Rails x2, Bed position Low and Locked. Fall Precautions: Yellow Socks Yellow Gown Door Sign Patient Fall Education Report given to Darlene Sterling .
--- NOTE | 2020-08-05 07:30 | NUR ---
NURSE HAND-OFF REPORT: RECIEVED PT FROM RN MARCELLUS. PT LOOKS UNCOMFORTABLE ON BIPAP; O2 SATURATION 98%. RT SANDEEP CONTACTED; WILL REASSESS PT. Important Events on Shift: Patient Status: FULL CODE Diet: NPO Pending Orders: Pending Results/Labs: Pending MD notification: SHERRI Latest Vital Signs: Temperature 98.0 , Pulse 105 , B/P 113 /85 , Respiratory Rate 40 , O2 SAT 98 , Venturi Mask, O2 Flow Rate 10.0 . Vital Sign Comment: EKG Rhythm: Sinus Tachycardia Rhythm change?: N MD Notified?: - MD Response: Latest Castro Fall Score: 50 Fall Risk: High Risk Safety Measures: Call light Within Reach, Bed Alarm Zone 2, Side Rails Side Rails x2, Bed position Low and Locked. Fall Precautions: YES Yellow Socks Yellow Gown Door Sign Patient Fall Education .
--- NOTE | 2020-08-05 08:50 | NUR ---
RADIOLOGY DEPT., ABDOMEN X-RAY DONE.-P.DYE
[2020-08-05] MEDS: Cefepime HCl 1 GM in D5W 55 ML IV SCH (09:00)
[2020-08-05] MEDS: Eliquis 2.5mg tablet ORAL SCH (09:00)
[2020-08-05] MEDS: Gabapentin 300 MG/6 ML Soln NG SCH ×3 (09:00→18:00)
--- NOTE | 2020-08-05 09:45 | NUR ---
NURSE NOTES: DR. Schneider notified ABG today ,pco2-66.1 done by RT on BIPAP now 05/02 70% -per recommendation RT O2 saturation 99 %,received on 03/02 70%,patient tachypneic ,will continue to monitor
--- NOTE | 2020-08-05 10:30 | Cardiac Electrophysiology PN ---
Assessment/Plan Assessment/Plan 1. Shortness of breath. The patient already on IV antibiotic as well as BIPAP. Echocardiogram showed EF 50% 2. Questionable congestive heart failure. EF normal and BNP is only 39. 3. History of COVID pneumonia, status post vaccination for COVID. Currently on IV antibiotic and prednisone. 4. Questionable history of atrial fibrillation versus DVT. The patient is on Eliquis 2.5 mg b.i.d. Currently in SR Subjective Subjective On BIPAP 05/02 and in restraints. Confused in SR Objective Last 24 Hour Vital Signs Date Time Temp Pulse Resp B/P (MAP) Pulse Ox O2 Delivery O2 Flow Rate FiO2 08/05/20 08:00 107 08/05/20 08:00 70 08/05/20 08:00 Venturi Mask 08/05/20 08:00 97.9 107 14 120/82 (95) 97 08/05/20 04:00 98.0 40 113/85 (94) 98 08/05/20 04:00 Venturi Mask 08/05/20 04:00 70 08/05/20 04:00 105 08/05/20 03:30 104 36 98 70 08/05/20 00:00 98.3 32 118/81 (93) 98 08/05/20 00:00 70 08/05/20 00:00 Venturi Mask 08/05/20 00:00 108 08/04/20 23:01 109 42 99 70 08/04/20 20:30 113 43 96 70 08/04/20 20:00 97.7 32 106/67 (80) 94 08/04/20 20:00 Venturi Mask 08/04/20 20:00 117 08/04/20 20:00 Bi-Pap 08/04/20 20:00 70 08/04/20 16:00 97.1 98 20 142/80 (100) 98 08/04/20 16:00 10.0 40 08/04/20 16:00 106 08/04/20 16:00 Venturi Mask 08/04/20 12:24 106 08/04/20 12:00 10.0 40 08/04/20 12:00 106 08/04/20 12:00 97.7 89 22 140/88 (105) 90 08/04/20 12:00 Venturi Mask Intake and Output 08/04/20 08/05/20 19:00 07:00 Intake Total 430.000 ml Output Total 850 ml 500 ml Balance -420.000 ml -500 ml Intake Oral 80 ml IV Total 350.000 ml Output Urine Total 850 ml 500 ml # Bowel Movements 3 4 Laboratory Tests Test 08/04/20 20:05 08/05/20 03:25 08/05/20 07:59 Arterial Blood pH 7.288 (7.350-7.450) 7.309 (7.350-7.450) Arterial Blood Partial Pressure CO2 66.0 mmHg (35.0-45.0) *H 66.1 mmHg (35.0-45.0) *H Arterial Blood Partial Pressure O2 75.6 mmHg (75.0-100.0) 86.4 mmHg (75.0-100.0) Arterial Blood HCO3 30.9 mmol/L (22.0-26.0) H 32.5 mmol/L (22.0-26.0) H Arterial Blood Oxygen Saturation 92.9 % (95-100) L 95.1 % (95-100) Arterial Blood Base Excess 2.7 (-2-2) H 4.5 (-2-2) H Chadwick Test Positive Positive White Blood Count 12.3 K/UL (4.8-10.8) #H Red Blood Count 4.02 M/UL (4.70-6.10) L Hemoglobin 11.0 G/DL (14.2-18.0) L Hematocrit 37.2 % (42.0-52.0) L Mean Corpuscular Volume 92 FL (80-99) Mean Corpuscular Hemoglobin 27.4 PG (27.0-31.0) Mean Corpuscular Hemoglobin Concent 29.7 G/DL (32.0-36.0) L Red Cell Distribution Width 14.0 % (11.6-14.8) Platelet Count 290 K/UL (150-450) Mean Platelet Volume 6.2 FL (6.5-10.1) L Neutrophils (%) (Auto) % (45.0-75.0) Lymphocytes (%) (Auto) % (20.0-45.0) Monocytes (%) (Auto) % (1.0-10.0) Eosinophils (%) (Auto) % (0.0-3.0) Basophils (%) (Auto) % (0.0-2.0) Differential Total Cells Counted 100 Neutrophils % (Manual) 86 % (45-75) H Lymphocytes % (Manual) 6 % (20-45) L Monocytes % (Manual) 1 % (1-10) Eosinophils % (Manual) 0 % (0-3) Basophils % (Manual) 0 % (0-2) Band Neutrophils 7 % (0-8) Platelet Estimate Adequate Platelet Morphology Normal Hypochromasia 1+ Sodium Level 146 MMOL/L (136-145) H Potassium Level 3.7 MMOL/L (3.5-5.1) Chloride Level 106 MMOL/L (98-107) Carbon Dioxide Level 34 MMOL/L (21-32) H Anion Gap 6 mmol/L (5-15) Blood Urea Nitrogen 19 mg/dL (7-18) H Creatinine 0.9 MG/DL (0.55-1.30) Estimat Glomerular Filtration Rate > 60 mL/min (>60) Glucose Level 106 MG/DL (74-106) Calcium Level 9.5 MG/DL (8.5-10.1) Phosphorus Level 2.4 MG/DL (2.5-4.9) L Magnesium Level 2.3 MG/DL (1.8-2.4) Troponin I 0.016 ng/mL (0.000-0.056) Pro-B-Type Natriuretic Peptide 555 pg/mL (0-125) H Microbiology Date/Time Source Procedure Growth Status 08/03/20 19:41 Urine,Clean Catch Urine Culture - Preliminary NO GROWTH Resulted Objective HEAD AND NECK: no JVD. LUNGS: Coarse rhonchi. CARDIOVASCULAR: Regular S1 and S2 with no gallop. ABDOMEN: Soft. EXTREMITIES: No pitting edema. Devyn Magdaleno MD Aug 05, 2020 10:30
--- NOTE | 2020-08-05 10:43 | Pulmonology Progress Note ---
Subjective Interval Events: Tachypnic; labored breathing on BiPAP Constitutional: Reports: no symptoms HEENT: Repors: no symptoms Respiratory: Reports: shortness of breath Cardiovascular: Reports: no symptoms Gastrointestinal/Abdominal: Reports: no symptoms Genitourinary: Reports: no symptoms Neurologic: Reports: no symptoms Allergies: Coded Allergies: PENICILLINS (Verified Allergy, Unknown, 03/10/20) PHENYTOIN (Verified Allergy, Unknown, 03/10/20) Objective Last 24 Hour Vital Signs Date Time Temp Pulse Resp B/P (MAP) Pulse Ox O2 Delivery O2 Flow Rate FiO2 08/05/20 08:00 107 08/05/20 08:00 70 08/05/20 08:00 Venturi Mask 08/05/20 08:00 97.9 107 14 120/82 (95) 97 08/05/20 04:00 98.0 40 113/85 (94) 98 08/05/20 04:00 Venturi Mask 08/05/20 04:00 70 08/05/20 04:00 105 08/05/20 03:30 104 36 98 70 08/05/20 00:00 98.3 32 118/81 (93) 98 08/05/20 00:00 70 08/05/20 00:00 Venturi Mask 08/05/20 00:00 108 08/04/20 23:01 109 42 99 70 08/04/20 20:30 113 43 96 70 08/04/20 20:00 97.7 32 106/67 (80) 94 08/04/20 20:00 Venturi Mask 08/04/20 20:00 117 08/04/20 20:00 Bi-Pap 08/04/20 20:00 70 08/04/20 16:00 97.1 98 20 142/80 (100) 98 08/04/20 16:00 10.0 40 08/04/20 16:00 106 08/04/20 16:00 Venturi Mask 08/04/20 12:24 106 08/04/20 12:00 10.0 40 08/04/20 12:00 106 08/04/20 12:00 97.7 89 22 140/88 (105) 90 08/04/20 12:00 Venturi Mask Intake and Output 08/04/20 08/05/20 19:00 07:00 Intake Total 430.000 ml Output Total 850 ml 500 ml Balance -420.000 ml -500 ml Intake Oral 80 ml IV Total 350.000 ml Output Urine Total 850 ml 500 ml # Bowel Movements 3 4 General Appearance: no acute distress HEENT: normocephalic Respiratory: chest wall non-tender, lungs clear Cardiovascular: normal peripheral pulses, normal rate Abdomen: normal bowel sounds Extremities: no cyanosis Microbiology Date/Time Source Procedure Growth Status 08/03/20 19:41 Urine,Clean Catch Urine Culture - Preliminary NO GROWTH Resulted Laboratory Tests 08/04/20 20:05: Arterial Blood pH 7.288L, Arterial Blood Partial Pressure CO2 66.0*H, Arterial Blood Partial Pressure O2 75.6, Arterial Blood HCO3 30.9H, Arterial Blood Oxygen Saturation 92.9L, Arterial Blood Base Excess 2.7H, Chadwick Test Positive 08/05/20 03:25: White Blood Count 12.3#H, Red Blood Count 4.02L, Hemoglobin 11.0L, Hematocrit 37.2L, Mean Corpuscular Volume 92, Mean Corpuscular Hemoglobin 27.4, Mean Corpuscular Hemoglobin Concent 29.7L, Red Cell Distribution Width 14.0, Platelet Count 290, Mean Platelet Volume 6.2L, Neutrophils (%) (Auto) , Lymphocytes (%) (Auto) , Monocytes (%) (Auto) , Eosinophils (%) (Auto) , Basophils (%) (Auto) , Differential Total Cells Counted 100, Neutrophils % (Manual) 86H, Lymphocytes % (Manual) 6L, Monocytes % (Manual) 1, Eosinophils % (Manual) 0, Basophils % (Manual) 0, Band Neutrophils 7, Platelet Estimate Adequate, Platelet Morphology Normal, Hypochromasia 1+, Sodium Level 146H, Potassium Level 3.7, Chloride Level 106, Carbon Dioxide Level 34H, Anion Gap 6, Blood Urea Nitrogen 19H, Creatinine 0.9, Estimat Glomerular Filtration Rate > 60, Glucose Level 106, Calcium Level 9.5, Phosphorus Level 2.4L, Magnesium Level 2.3, Troponin I 0.016, Pro-B-Type Natriuretic Peptide 555H 08/05/20 07:59: Arterial Blood pH 7.309L, Arterial Blood Partial Pressure CO2 66.1*H, Arterial Blood Partial Pressure O2 86.4, Arterial Blood HCO3 32.5H, Arterial Blood Oxygen Saturation 95.1, Arterial Blood Base Excess 4.5H, Chadwick Test Positive Current Medications Medications (Trade) Dose Ordered Sig/Armand Route PRN Reason Start Time Stop Time Status Last Admin Dose Admin Albuterol/ Ipratropium (Combivent Respimat) 1 puff Q4H PRN INH Shortness of Breath 08/04/20 10:00 09/03/20 09:59 Albuterol/ Ipratropium (Combivent Respimat) 1 puff Q8HR INH 08/04/20 09:30 09/03/20 09:29 08/04/20 15:22 Apixaban (Eliquis) 2.5 mg BID ORAL 08/04/20 09:30 11/02/20 09:29 08/05/20 09:00 Cefepime HCl 1 gm/ Dextrose 55 ml @ 110 mls/hr EVERY 12 HOURS IV 08/04/20 21:00 08/11/20 20:59 08/05/20 09:00 Gabapentin (Neurontin) 300 mg TID NG 08/05/20 09:00 09/04/20 08:59 08/05/20 09:00 Lorazepam (Ativan 2mg/ml 1ml) 0.5 mg Q6H PRN IV For Anxiety 08/04/20 21:30 08/11/20 21:29 Metronidazole 100 ml @ 100 mls/hr Q8HR IVPB 08/04/20 14:00 08/11/20 13:59 08/05/20 06:12 Prednisone (predniSONE) 20 mg DAILY ORAL 08/04/20 09:30 09/03/20 09:29 08/05/20 09:00 Vancomycin HCl (Vanco pharmacy to dose) 1 ea DAILY PRN MISC Per rx protocol 08/04/20 09:15 09/03/20 09:14 Vancomycin HCl 1 gm/Sodium Chloride 275 ml @ 183.708 mls/hr Q12HR IVPB 08/05/20 00:00 08/10/20 00:00 08/05/20 09:00 Assessment/Plan Assessment/Plan 1. UTI -On empiric antibiotics -Follow-up UCx negative (08/03) 2. Pneumonia -On broad-spectrum antibiotics - CXR concerning for volume loss -> await CT chest 3. COPD exacerbation -Continue breathing treatment -Continue supplemental oxygen and wean as tolerated -Currently on 10 L Venturi mask; will initiate BiPAP -Patient reports chronic use of oxygen 5L NC at his facility 4. Respiratory distress - Continue management as #3 - on steroidd - Cardio ordered 2D Echo for questionable CHF 5. History of seizures -Risk of aspiration -Monitor for seizure activity 6. Elevated CRP -D-dimer wnl -His outpatient medications include Eliquis (hx of A fib?) - Continue Eliquis 7. Monitor carefully in ICU May need intubation Micha Schneider MD Aug 05, 2020 10:43
--- NOTE | 2020-08-05 10:45 | NUR ---
TRANSFER & HAND OFF NOTE: PT IS IN INCREASING RESPIRATORY DISTRESS; DISCUSSED WITH CHARGE NURSE JOHNSON AND RESPIRATORY THERAPIST SANDEEP. MD POLANCO CONTACTED. MD POLANCO RECOMMENDS PT BE INTUBATED. PT PLACED ON PORTABLE MONITOR AND TRANSFERRED TO ICU. REPORT GIVEN TO ION GAITAN. PT PLACED ON ICU MONITOR, REMAINS ON BIPAP. O2 SAT 98%, RT SANDEEP PREPARING FOR INTUBATION PER MD POLANCO
--- NOTE | 2020-08-05 10:50 | NUR ---
NURSE NOTES: Transferred from [facility]. Patient is bipap. O2 sat 98% on the monitor. Awaiting for intubation.
--- NOTE | 2020-08-05 11:09 | NUR ---
CASE MANAGEMENT:REVIEW 08/05/20 SI: PNA. COPD EXACERBATION. UTI 97.9 107 14 120/82 97% ON VENTURI MASK W/70% FIO2 WBC+12.3 PH-7.3 PCO2+66.1 HCO3+32.5 IS: IV VANCOMYCIN Q12 IV CEFEPIME Q12 IV FLAGYL Q8HRS IV SOLUMEDROL 40MG Q6HRS LOVENOX SQ Q12 DUONEB INH Q8HRS :NOW IN ICU DCP: FROM [facility]
--- NOTE | 2020-08-05 11:15 | NUR ---
NURSE NOTES: Patient is intubated 7.5/23cm at lip line. Ordered Xray. ABG at 1215. Will follow up.
[2020-08-05] MEDS ORDERED: Midazolam 2mg/2ml Inj IVP SCH ×2 (11:30→11:45)
--- NOTE | 2020-08-05 11:35 | Emergency Room Report ---
Physical Exam Called to intubate patient. Patient admitted with right lower lobe pneumonia. Patient on BiPAP but becoming unresponsive and needing more aggressive airway and respiratory management. Last 24 Hour Vital Signs Date Time Temp Pulse Resp B/P (MAP) Pulse Ox O2 Delivery O2 Flow Rate FiO2 08/05/20 08:00 107 08/05/20 08:00 70 08/05/20 08:00 Venturi Mask 08/05/20 08:00 97.9 107 14 120/82 (95) 97 08/05/20 04:00 98.0 40 113/85 (94) 98 08/05/20 04:00 Venturi Mask 08/05/20 04:00 70 08/05/20 04:00 105 08/05/20 03:30 104 36 98 70 08/05/20 00:00 98.3 32 118/81 (93) 98 08/05/20 00:00 70 08/05/20 00:00 Venturi Mask 08/05/20 00:00 108 08/04/20 23:01 109 42 99 70 08/04/20 20:30 113 43 96 70 08/04/20 20:00 97.7 32 106/67 (80) 94 08/04/20 20:00 Venturi Mask 08/04/20 20:00 117 08/04/20 20:00 Bi-Pap 08/04/20 20:00 70 08/04/20 16:00 97.1 98 20 142/80 (100) 98 08/04/20 16:00 10.0 40 08/04/20 16:00 106 08/04/20 16:00 Venturi Mask 08/04/20 12:24 106 08/04/20 12:00 10.0 40 08/04/20 12:00 106 08/04/20 12:00 97.7 89 22 140/88 (105) 90 08/04/20 12:00 Venturi Mask Sp02 EP Interpretation: reviewed, abnormal - As interpreted by me General Appearance: severe distress Eyes: bilateral eye abnormal EOM - eyes deviated to right ENT: moist mucus membranes Neck: supple Respiratory: other - Tachypnea for respiratory drive with decreased tidal volume Cardiovascular #1: tachycardia Gastrointestinal: normal inspection Musculoskeletal: other - Flaccid Neurologic: other - Unresponsive with abnormal gaze Psychiatric: other - Unresponsive Skin: no rash Intubation Intubation : Consent: Emergent Time of Intubation: 11:30 Intubation Method: orotracheal Tube Size (cm): 7.5 - 23 cm gums Medications: Etomidate, Versed Breath Sounds after Intubation: equal Intubation Complications: no complications Post Intubation Xray: Yes Attempts: One Patient Tolerated: Well Complications: None Medical Decision Making Diagnostic Impression: Primary Impression: Respiratory failure Qualified Codes: J96.01 - Acute respiratory failure with hypoxia; J96.02 - Acute respiratory failure with hypercapnia Additional Impression: Right lower lobe pneumonia Qualified Codes: J13 - Pneumonia due to Streptococcus pneumoniae ER Course Called to intubate patient. Patient with right lower lobe pneumonia. Patient on BiPAP. Patient has become unresponsive, hypoxemic and most likely hypercarbic. Patient demonstrates respiratory failure. Please see procedure note of intubation. Of note patient has a right gaze which was not present before. This may be metabolic but of concern. Chest x-ray post intubation with adequate endotracheal tube placement. Patient tolerated the procedure well. Patient is extremely ill at this time. Rhythm Strip Diag. Results EP Interpretation: yes Rhythm: no PVC's, no ectopy, other - Tachycardia Chest X-Ray Diagnostic Results Chest X-Ray Diagnostic Results : Chest X-Ray Ordered: Yes # of Views/Limited/Complete: 1 View Indication: Other EP Interpretation: Yes Interpretation: no pneumothorax, other - Right infiltrate with possible effusion and endotracheal tube 2 cm above the yashira Impression: Other Electronically Signed by: Electronically signed by Lalo Siddiqui MD Last Vital Signs Date Time Temp Pulse Resp B/P (MAP) Pulse Ox O2 Delivery O2 Flow Rate FiO2 08/05/20 08:00 107 08/05/20 08:00 70 08/05/20 08:00 Venturi Mask 08/05/20 08:00 97.9 14 120/82 (95) 97 08/04/20 16:00 10.0 Status: worsened Disposition: ADMITTED INPATIENT Condition: Critical Referrals: NOT CHOSEN IPA/,REFERRING (PCP) Lalo Siddiqui MD Aug 05, 2020 11:35
[2020-08-05] MEDS ORDERED: Etomidate 40mg/20ml Inj IV SCH (11:45)
--- NOTE | 2020-08-05 12:30 | NUR ---
NURSE NOTES: ASSUMED CARE OF PATIENT; REPORT RECEIVED FROM ION GAITAN
--- NOTE | 2020-08-05 12:31 | NUR ---
NURSE NOTES: Report given to ION Lantigua. Endorsed plan of care.
[2020-08-05] MEDS: Solu-MEDROL 40mg Inj IVP SCH ×3 (12:42→23:20)
--- NOTE | 2020-08-05 12:52 | Surgery Progress Note ---
Surgery Progress Note Subjective Additional Comments declined intubated in icu ill appearing leukocytosis kub done Objective Last 24 Hour Vital Signs Date Time Temp Pulse Resp B/P (MAP) Pulse Ox O2 Delivery O2 Flow Rate FiO2 08/05/20 08:00 107 08/05/20 08:00 70 08/05/20 08:00 Venturi Mask 08/05/20 08:00 97.9 107 14 120/82 (95) 97 08/05/20 04:00 98.0 40 113/85 (94) 98 08/05/20 04:00 Venturi Mask 08/05/20 04:00 70 08/05/20 04:00 105 08/05/20 03:30 104 36 98 70 08/05/20 00:00 98.3 32 118/81 (93) 98 08/05/20 00:00 70 08/05/20 00:00 Venturi Mask 08/05/20 00:00 108 08/04/20 23:01 109 42 99 70 08/04/20 20:30 113 43 96 70 08/04/20 20:00 97.7 32 106/67 (80) 94 08/04/20 20:00 Venturi Mask 08/04/20 20:00 117 08/04/20 20:00 Bi-Pap 08/04/20 20:00 70 08/04/20 16:00 97.1 98 20 142/80 (100) 98 08/04/20 16:00 10.0 40 08/04/20 16:00 106 08/04/20 16:00 Venturi Mask I&O Intake and Output 08/04/20 08/05/20 19:00 07:00 Intake Total 430.000 ml Output Total 850 ml 500 ml Balance -420.000 ml -500 ml Intake Oral 80 ml IV Total 350.000 ml Output Urine Total 850 ml 500 ml # Bowel Movements 3 4 Cardiovascular: RSR Respiratory: decreased breath sounds Abdomen: soft, distended, non-tender, decreased bowel sounds Extremities: no edema, no tenderness, no cyanosis Laboratory Tests Test 08/04/20 20:05 08/05/20 03:25 08/05/20 07:59 Arterial Blood pH 7.288 (7.350-7.450) 7.309 (7.350-7.450) Arterial Blood Partial Pressure CO2 66.0 mmHg (35.0-45.0) *H 66.1 mmHg (35.0-45.0) *H Arterial Blood Partial Pressure O2 75.6 mmHg (75.0-100.0) 86.4 mmHg (75.0-100.0) Arterial Blood HCO3 30.9 mmol/L (22.0-26.0) H 32.5 mmol/L (22.0-26.0) H Arterial Blood Oxygen Saturation 92.9 % (95-100) L 95.1 % (95-100) Arterial Blood Base Excess 2.7 (-2-2) H 4.5 (-2-2) H Chadwick Test Positive Positive White Blood Count 12.3 K/UL (4.8-10.8) #H Red Blood Count 4.02 M/UL (4.70-6.10) L Hemoglobin 11.0 G/DL (14.2-18.0) L Hematocrit 37.2 % (42.0-52.0) L Mean Corpuscular Volume 92 FL (80-99) Mean Corpuscular Hemoglobin 27.4 PG (27.0-31.0) Mean Corpuscular Hemoglobin Concent 29.7 G/DL (32.0-36.0) L Red Cell Distribution Width 14.0 % (11.6-14.8) Platelet Count 290 K/UL (150-450) Mean Platelet Volume 6.2 FL (6.5-10.1) L Neutrophils (%) (Auto) % (45.0-75.0) Lymphocytes (%) (Auto) % (20.0-45.0) Monocytes (%) (Auto) % (1.0-10.0) Eosinophils (%) (Auto) % (0.0-3.0) Basophils (%) (Auto) % (0.0-2.0) Differential Total Cells Counted 100 Neutrophils % (Manual) 86 % (45-75) H Lymphocytes % (Manual) 6 % (20-45) L Monocytes % (Manual) 1 % (1-10) Eosinophils % (Manual) 0 % (0-3) Basophils % (Manual) 0 % (0-2) Band Neutrophils 7 % (0-8) Platelet Estimate Adequate Platelet Morphology Normal Hypochromasia 1+ Sodium Level 146 MMOL/L (136-145) H Potassium Level 3.7 MMOL/L (3.5-5.1) Chloride Level 106 MMOL/L (98-107) Carbon Dioxide Level 34 MMOL/L (21-32) H Anion Gap 6 mmol/L (5-15) Blood Urea Nitrogen 19 mg/dL (7-18) H Creatinine 0.9 MG/DL (0.55-1.30) Estimat Glomerular Filtration Rate > 60 mL/min (>60) Glucose Level 106 MG/DL (74-106) Calcium Level 9.5 MG/DL (8.5-10.1) Phosphorus Level 2.4 MG/DL (2.5-4.9) L Magnesium Level 2.3 MG/DL (1.8-2.4) Troponin I 0.016 ng/mL (0.000-0.056) Pro-B-Type Natriuretic Peptide 555 pg/mL (0-125) H Plan Problems: (1) Abdominal distension Assessment & Plan: 79M abdominal distention, respiratory decline, altered mental status. on exam noted abd soft, mild distended, non tender. no n/v/f/c. unlikely aspiration. non tender one exam. pending urine and covid test. no acute surgical intervention. hold on ct. kub ordered. will follow with exam and recs. keep npo for now. iv fluids. respiratory pulm support. will follow with recs thank you decline since admission now intubated ng tube to suction no acute surgical intervention cont abx (2) UTI (urinary tract infection) (3) Pneumonia (4) Multiple pulmonary nodules (5) Respiratory failure with hypoxia (6) Pneumonia due to COVID-19 virus (7) History of CVA (cerebrovascular accident) (8) COPD (chronic obstructive pulmonary disease) (9) HTN (hypertension) (10) Hx of prostatic malignancy (11) Major depression (12) Seizure disorder Destin Brown Aug 05, 2020 12:52
--- NOTE | 2020-08-05 12:53 | Internal Med Progress Note ---
Subjective Date of Service: Aug 05, 2020 Physician Name Pablo Hickman Attending Physician Torres Saul MD Current Medications Medications (Trade) Dose Ordered Sig/Armand Route PRN Reason Start Time Stop Time Status Last Admin Dose Admin Albuterol/ Ipratropium (Combivent Respimat) 1 puff Q4H PRN INH Shortness of Breath 08/04/20 10:00 09/03/20 09:59 Albuterol/ Ipratropium (Combivent Respimat) 1 puff Q8HR INH 08/04/20 09:30 09/03/20 09:29 08/04/20 15:22 Cefepime HCl 1 gm/ Dextrose 55 ml @ 110 mls/hr EVERY 12 HOURS IV 08/04/20 21:00 08/11/20 20:59 08/05/20 09:00 Enoxaparin Sodium (Lovenox) 60 mg EVERY 12 HOURS SUBQ 08/05/20 21:00 11/03/20 20:59 Gabapentin (Neurontin) 300 mg TID NG 08/05/20 09:00 09/04/20 08:59 08/05/20 09:00 Lorazepam (Ativan 2mg/ml 1ml) 0.5 mg Q6H PRN IV For Anxiety 08/04/20 21:30 08/11/20 21:29 Methylprednisolone Sodium Succinate (Solu-MEDROL) 40 mg EVERY 6 HOURS IVP 08/05/20 12:00 11/03/20 11:59 08/05/20 12:42 Metronidazole 100 ml @ 100 mls/hr Q8HR IVPB 08/04/20 14:00 08/11/20 13:59 08/05/20 06:12 Vancomycin HCl (Vanco pharmacy to dose) 1 ea DAILY PRN MISC Per rx protocol 08/04/20 09:15 09/03/20 09:14 Vancomycin HCl 1 gm/Sodium Chloride 275 ml @ 183.708 mls/hr Q12HR IVPB 08/05/20 00:00 08/10/20 00:00 08/05/20 09:00 Allergies: Coded Allergies: PENICILLINS (Verified Allergy, Unknown, 03/10/20) PHENYTOIN (Verified Allergy, Unknown, 03/10/20) ROS Limited/Unobtainable: Yes Subjective 79 YO M admitted with respiratory distress. Now pneumonia. Cover for Int Med- Dr Saul. Transferred to ICU 08/05/20 after worsening respiratory failure requiring intubation Objective Last Vital Signs Date Time Temp Pulse Resp B/P (MAP) Pulse Ox O2 Delivery O2 Flow Rate FiO2 08/05/20 08:00 107 08/05/20 08:00 70 08/05/20 08:00 Venturi Mask 08/05/20 08:00 97.9 14 120/82 (95) 97 08/04/20 16:00 10.0 Laboratory Tests Test 08/04/20 20:05 08/05/20 03:25 08/05/20 07:59 Arterial Blood pH 7.288 (7.350-7.450) 7.309 (7.350-7.450) Arterial Blood Partial Pressure CO2 66.0 mmHg (35.0-45.0) *H 66.1 mmHg (35.0-45.0) *H Arterial Blood Partial Pressure O2 75.6 mmHg (75.0-100.0) 86.4 mmHg (75.0-100.0) Arterial Blood HCO3 30.9 mmol/L (22.0-26.0) H 32.5 mmol/L (22.0-26.0) H Arterial Blood Oxygen Saturation 92.9 % (95-100) L 95.1 % (95-100) Arterial Blood Base Excess 2.7 (-2-2) H 4.5 (-2-2) H Chadwick Test Positive Positive White Blood Count 12.3 K/UL (4.8-10.8) #H Red Blood Count 4.02 M/UL (4.70-6.10) L Hemoglobin 11.0 G/DL (14.2-18.0) L Hematocrit 37.2 % (42.0-52.0) L Mean Corpuscular Volume 92 FL (80-99) Mean Corpuscular Hemoglobin 27.4 PG (27.0-31.0) Mean Corpuscular Hemoglobin Concent 29.7 G/DL (32.0-36.0) L Red Cell Distribution Width 14.0 % (11.6-14.8) Platelet Count 290 K/UL (150-450) Mean Platelet Volume 6.2 FL (6.5-10.1) L Neutrophils (%) (Auto) % (45.0-75.0) Lymphocytes (%) (Auto) % (20.0-45.0) Monocytes (%) (Auto) % (1.0-10.0) Eosinophils (%) (Auto) % (0.0-3.0) Basophils (%) (Auto) % (0.0-2.0) Differential Total Cells Counted 100 Neutrophils % (Manual) 86 % (45-75) H Lymphocytes % (Manual) 6 % (20-45) L Monocytes % (Manual) 1 % (1-10) Eosinophils % (Manual) 0 % (0-3) Basophils % (Manual) 0 % (0-2) Band Neutrophils 7 % (0-8) Platelet Estimate Adequate Platelet Morphology Normal Hypochromasia 1+ Sodium Level 146 MMOL/L (136-145) H Potassium Level 3.7 MMOL/L (3.5-5.1) Chloride Level 106 MMOL/L (98-107) Carbon Dioxide Level 34 MMOL/L (21-32) H Anion Gap 6 mmol/L (5-15) Blood Urea Nitrogen 19 mg/dL (7-18) H Creatinine 0.9 MG/DL (0.55-1.30) Estimat Glomerular Filtration Rate > 60 mL/min (>60) Glucose Level 106 MG/DL (74-106) Calcium Level 9.5 MG/DL (8.5-10.1) Phosphorus Level 2.4 MG/DL (2.5-4.9) L Magnesium Level 2.3 MG/DL (1.8-2.4) Troponin I 0.016 ng/mL (0.000-0.056) Pro-B-Type Natriuretic Peptide 555 pg/mL (0-125) H Microbiology Date/Time Source Procedure Growth Status 08/04/20 05:50 Nasal Nares MRSA Culture - Final Staphylococcus Aureus - Mrsa Complete 08/03/20 19:41 Urine,Clean Catch Urine Culture - Final Mixed Gram Positive Organism Complete Intake and Output 08/04/20 08/05/20 19:00 07:00 Intake Total 430.000 ml Output Total 850 ml 500 ml Balance -420.000 ml -500 ml Intake Oral 80 ml IV Total 350.000 ml Output Urine Total 850 ml 500 ml # Bowel Movements 3 4 Objective PHYSICAL EXAMINATION: GENERAL: The patient is well-developed, well-nourished male, in moderate respiratory distress. HEENT: Eyes, pupils are equal and responsive to light and accommodation. Extraocular movements are intact. NECK: Supple. No lymphadenopathy. CHEST: Mech vent; Lungs are clear to auscultation bilaterally without wheezes or rales. CARDIOVASCULAR: Regular rhythm and rate. S1-S2 are normal without murmurs, rubs, or gallops. ABDOMEN: Soft, nontender, and nondistended. Positive bowel sounds. No evidence of hepatosplenomegaly. Currently, no rebound or guarding noted. EXTREMITIES: Negative for clubbing, cyanosis, or edema. RECTAL/GENITAL: Not performed. NEUROLOGIC: Cranial nerves II through XII are grossly intact without focal deficits. Motor strength is 5/5 bilaterally. Deep tendon reflexes are 2+ plantar. Assessment/Plan Assessment/Plan ASSESSMENT: This is an 79-year-old male with. 1. Respiratory failure-intubated 08/05/20; mech vent 2. Right-sided pneumonia. 3. Hypertension. 4. Congestive heart failure. 5. Chronic obstructive pulmonary disease. 6. Anemia. 7. Cerebrovascular disease, status post cerebrovascular accident. 8. Peripheral vascular disease. 9. Gastroesophageal reflux disease. 10. Major depression. 11. Seizure disorder. 12. History of COVID-19 positive in February 2020. 13. Benign prostatic hypertrophy. TREATMENT: 1. Respiratory failure/right-sided pneumonia. A pulmonary consultation has been obtained with Dr. Micha Schneider. The patient has been placed empirically on vancomycin and cefepime. An Infectious Disease consultation has been obtained with Dr. Urrutia. Follow recommendations of Infectious Disease and Pulmonary. 2. Hypertension. The patient is currently hypotensive. 3. Congestive heart failure. 4. Chronic obstructive pulmonary disease. Continue DuoNeb as above. 5. Anemia. 6. Cerebrovascular disease. 7. Peripheral vascular disease. 8. Gastroesophageal reflux disease. Continue famotidine as above. 9. Major depression. Seizure disorder. 10. COVID-19 positive, history in February 2020. 11. Benign prostatic hypertrophy. Continue Flomax as above. Pablo Hickman MD Aug 05, 2020 12:53
--- NOTE | 2020-08-05 14:21 | Diagnostic Imaging Report ---
Indication: Abdominal pain Technique: Supine view of the abdomen Comparison: none Findings: The rectum is considerably distended with stool. Considerable stool is also seen in the descending colon. The colon is diffusely gas filled, upper limits of normal in caliber. No significant small bowel gas demonstrated. No masses or unusual calcifications. The included lung bases demonstrate bilateral right greater than left pleural effusions. There is a Butler catheter Impression: Distended stool-filled rectum, fecal impaction possible Gas-filled upper limits of normal caliber colon, nonspecific Bilateral right greater than left pleural effusions
--- NOTE | 2020-08-05 15:20 | NUR ---
NURSE NOTES: LAB NOTIFIED PT BLOOD CULTURES POSITIVE FOR GRAM POSITIVE COCCYX IN CLUSTERS
[2020-08-05] MEDS ORDERED: Dyna-Hex 2% Top Sol 2oz TOPIC SCH (15:35)
[2020-08-05] MEDS ORDERED: Lidocaine 1% MPF 10mg/ml 5ml INJ PRN (15:45)
--- NOTE | 2020-08-05 16:07 | Diagnostic Imaging Report ---
Indication: Shortness of breath Technique: One view of the chest Comparison: 08/03/2020 Findings: Interim endotracheal intubation, endotracheal tube tip projecting approximately 2 cm above the yashira. Infiltrate and pleural fluid on the right are unchanged. Left lung is clear. Left costophrenic sulcus is cut off the exam. Impression: Satisfactory endotracheal intubation. Unchanged right basilar infiltrate and right pleural fluid
[2020-08-05] MEDS: fentaNYL 2500mcg/NS 250ml 250 ML IV SCH (16:20)
[2020-08-05] MEDS: Versed 100mg/NS 200ml 200 ML IV PRN (16:20)
--- NOTE | 2020-08-05 16:45 | NUR ---
NURSE NOTES: CENTRAL LINE PLACED 1645 BY MD BLAKE; RIGHT FEMORAL TLC. CL IS PATENT AND INTACT
--- NOTE | 2020-08-05 17:31 | Emergency Room Report ---
History of Present Illness General Chief Complaint: Altered Mental Status Source: Medical Record, PMD Present Illness Allergies: Coded Allergies: PENICILLINS (Verified Allergy, Unknown, 03/10/20) PHENYTOIN (Verified Allergy, Unknown, 03/10/20) COVID-19 Screening Contact w/high risk pt: No Experienced COVID-19 symptoms?: Yes COVID-19 Testing performed ELECTRICIAN UNDERGROUND: No COVID-19 Screening: Negative COVID-19 Nursing Documentation-PMH Past Medical History: No History, Except For Hx Cardiac Problems: Yes Hx Hypertension: Yes Hx COPD: Yes - COPD, ARDS Hx Cancer: Yes Hx Gastrointestinal Problems: Yes Hx Neurological Problems: Yes Hx Seizures: Yes Hx Weakness: Yes Physical Exam Vital Signs Date Time Temp Pulse Resp B/P (MAP) Pulse Ox O2 Delivery O2 Flow Rate FiO2 08/03/20 18:42 102.9 136 20 122/74 (90) 95 Nasal Cannula 2.0 08/03/20 19:28 100 100 Procedures Central Line Central Line : Consent: Emergent Central Line Lumen: triple Maximal Sterile Barrier Tech: yes cap, yes mask, yes sterile gown, yes sterile gloves, yes large sterile sheet, yes hand hygiene, yes chlorhexidine prep No Max Barrier Tech Because: emergency insertion Central Line Postion: femoral (R) US Guided Line?: Yes Vessel visualized with U/S: Right Internal Jugular Ultrasound Findings: Collapsible Vessel, Vessel Patent, Color flow present, Visualize vessel puncture Complications: none Central Line Post Position: sutured, good blood return, position confirmed w/ CXR Attempts: One Patient Tolerated: Well Complications: None Medical Decision Making Diagnostic Impression: Primary Impression: Respiratory failure Last Vital Signs Date Time Temp Pulse Resp B/P (MAP) Pulse Ox O2 Delivery O2 Flow Rate FiO2 08/05/20 16:35 24 141/103 Endotracheal Tube 08/05/20 16:20 10.0 60 08/05/20 16:00 115 96 08/05/20 08:00 97.9 Disposition: ADMITTED INPATIENT Condition: Critical Referrals: NOT CHOSEN IPA/,REFERRING (PCP) David Sarmiento M.D. Aug 05, 2020 17:31
[2020-08-05] MEDS: Norepinephrine 4mg/NS Premix 250 ML IV SCH ×3 (17:45→23:15)
--- NOTE | 2020-08-05 18:08 | Infectious Diseases Prog Note ---
Assessment/Plan Assessment/Plan Full consult dictated: A) 1) pna, hypoxia, ? covid, ? hcap/aspiration pna, vent, respiratory failure 2) uti 3) sepsis, fevers, leukocytosis, shock 4) pmh noted 5) allergies - pcn P) 1) vancomycin, cefepime and flagyl, patient given steroids 2) f/u on cultures, covid testing, labs, chest x-ray and CT chest 3) covid isolation 4) will f/u 5) icu care, vent Subjective Allergies: Coded Allergies: PENICILLINS (Verified Allergy, Unknown, 03/10/20) PHENYTOIN (Verified Allergy, Unknown, 03/10/20) Objective Last 24 Hour Vital Signs Date Time Temp Pulse Resp B/P (MAP) Pulse Ox O2 Delivery O2 Flow Rate FiO2 08/05/20 17:30 118 16 87 08/05/20 17:26 119 16 83/56 (65) 83 08/05/20 17:23 120 16 77/59 (65) 82 08/05/20 17:15 120 16 08/05/20 17:05 24 117/71 Endotracheal Tube 08/05/20 17:05 20 86/65 Endotracheal Tube 08/05/20 17:00 121 16 92/62 (72) 08/05/20 16:50 24 117/71 Endotracheal Tube 08/05/20 16:50 24 117/71 08/05/20 16:45 120 16 08/05/20 16:35 24 141/103 Endotracheal Tube 08/05/20 16:35 20 133/101 Mechanical Ventilator 08/05/20 16:30 120 30 08/05/20 16:20 19 131/78 Venturi Mask 10.0 60 08/05/20 16:20 27 131/78 08/05/20 16:15 117 32 97 08/05/20 16:00 Venturi Mask 08/05/20 16:00 115 19 131/78 (95) 96 08/05/20 16:00 107 08/05/20 16:00 115 19 131/78 (95) 96 08/05/20 15:18 117 16 60 08/05/20 15:00 124 31 117/71 (86) 89 08/05/20 15:00 115 35 133/101 (112) 93 08/05/20 15:00 115 35 133/101 (112) 93 08/05/20 14:25 124 31 117/71 (86) 89 08/05/20 14:25 124 31 117/71 (86) 89 08/05/20 14:00 116 5 86/65 (72) 96 08/05/20 14:00 116 5 86/65 (72) 96 08/05/20 13:00 111 16 93/72 (79) 96 08/05/20 13:00 111 16 93/72 (79) 96 08/05/20 13:00 111 16 93/72 (79) 96 08/05/20 12:07 105 19 96/69 (78) 08/05/20 12:07 105 19 96/69 (78) 08/05/20 12:07 105 19 96/69 (78) 08/05/20 12:00 107 16 81/55 (64) 97 08/05/20 12:00 Venturi Mask 08/05/20 12:00 107 16 81/55 (64) 97 08/05/20 12:00 107 16 81/55 (64) 97 08/05/20 12:00 107 08/05/20 11:26 114 16 60 08/05/20 11:00 109 37 119/76 (90) 97 08/05/20 11:00 109 37 119/76 (90) 97 08/05/20 10:53 106 42 122/76 (91) 99 08/05/20 10:42 127/83 (98) 08/05/20 08:00 107 08/05/20 08:00 70 08/05/20 08:00 Venturi Mask 08/05/20 08:00 97.9 107 14 120/82 (95) 97 08/05/20 07:45 98 Bi-Pap 08/05/20 07:38 107 41 98 70 08/05/20 04:00 98.0 40 113/85 (94) 98 08/05/20 04:00 Venturi Mask 08/05/20 04:00 70 08/05/20 04:00 105 08/05/20 03:30 104 36 98 70 08/05/20 00:00 98.3 32 118/81 (93) 98 08/05/20 00:00 70 08/05/20 00:00 Venturi Mask 08/05/20 00:00 108 08/04/20 23:01 109 42 99 70 08/04/20 20:30 113 43 96 70 08/04/20 20:00 97.7 32 106/67 (80) 94 08/04/20 20:00 Venturi Mask 08/04/20 20:00 117 08/04/20 20:00 Bi-Pap 08/04/20 20:00 70 Height (Feet): 6 Height (Inches): 1.00 Weight (Pounds): 190 Microbiology Date/Time Source Procedure Growth Status 08/04/20 05:50 Nasal Nares MRSA Culture - Final Staphylococcus Aureus - Mrsa Complete 08/03/20 19:41 Urine,Clean Catch Urine Culture - Final Mixed Gram Positive Organism Complete 08/03/20 19:08 Blood Blood Culture - Preliminary Resulted Laboratory Tests Test 08/04/20 20:05 08/05/20 03:25 08/05/20 07:59 08/05/20 15:05 Arterial Blood pH 7.288 (7.350-7.450) 7.309 (7.350-7.450) 7.417 (7.350-7.450) Arterial Blood Partial Pressure CO2 66.0 mmHg (35.0-45.0) *H 66.1 mmHg (35.0-45.0) *H 51.1 mmHg (35.0-45.0) H Arterial Blood Partial Pressure O2 75.6 mmHg (75.0-100.0) 86.4 mmHg (75.0-100.0) 60.9 mmHg (75.0-100.0) L Arterial Blood HCO3 30.9 mmol/L (22.0-26.0) H 32.5 mmol/L (22.0-26.0) H 32.2 mmol/L (22.0-26.0) H Arterial Blood Oxygen Saturation 92.9 % (95-100) L 95.1 % (95-100) 92.0 % (95-100) L Arterial Blood Base Excess 2.7 (-2-2) H 4.5 (-2-2) H 6.6 (-2-2) H Chadwick Test Positive Positive Positive White Blood Count 12.3 K/UL (4.8-10.8) #H Red Blood Count 4.02 M/UL (4.70-6.10) L Hemoglobin 11.0 G/DL (14.2-18.0) L Hematocrit 37.2 % (42.0-52.0) L Mean Corpuscular Volume 92 FL (80-99) Mean Corpuscular Hemoglobin 27.4 PG (27.0-31.0) Mean Corpuscular Hemoglobin Concent 29.7 G/DL (32.0-36.0) L Red Cell Distribution Width 14.0 % (11.6-14.8) Platelet Count 290 K/UL (150-450) Mean Platelet Volume 6.2 FL (6.5-10.1) L Neutrophils (%) (Auto) % (45.0-75.0) Lymphocytes (%) (Auto) % (20.0-45.0) Monocytes (%) (Auto) % (1.0-10.0) Eosinophils (%) (Auto) % (0.0-3.0) Basophils (%) (Auto) % (0.0-2.0) Differential Total Cells Counted 100 Neutrophils % (Manual) 86 % (45-75) H Lymphocytes % (Manual) 6 % (20-45) L Monocytes % (Manual) 1 % (1-10) Eosinophils % (Manual) 0 % (0-3) Basophils % (Manual) 0 % (0-2) Band Neutrophils 7 % (0-8) Platelet Estimate Adequate Platelet Morphology Normal Hypochromasia 1+ Sodium Level 146 MMOL/L (136-145) H Potassium Level 3.7 MMOL/L (3.5-5.1) Chloride Level 106 MMOL/L (98-107) Carbon Dioxide Level 34 MMOL/L (21-32) H Anion Gap 6 mmol/L (5-15) Blood Urea Nitrogen 19 mg/dL (7-18) H Creatinine 0.9 MG/DL (0.55-1.30) Estimat Glomerular Filtration Rate > 60 mL/min (>60) Glucose Level 106 MG/DL (74-106) Calcium Level 9.5 MG/DL (8.5-10.1) Phosphorus Level 2.4 MG/DL (2.5-4.9) L Magnesium Level 2.3 MG/DL (1.8-2.4) Troponin I 0.016 ng/mL (0.000-0.056) Pro-B-Type Natriuretic Peptide 555 pg/mL (0-125) H Current Medications Medications (Trade) Dose Ordered Sig/Armand Route PRN Reason Start Time Stop Time Status Last Admin Dose Admin Albuterol/ Ipratropium (Combivent Respimat) 1 puff Q4H PRN INH Shortness of Breath 08/04/20 10:00 09/03/20 09:59 Albuterol/ Ipratropium (Combivent Respimat) 1 puff Q8HR INH 08/04/20 09:30 09/03/20 09:29 08/04/20 15:22 Cefepime HCl 1 gm/ Dextrose 55 ml @ 110 mls/hr EVERY 12 HOURS IV 08/04/20 21:00 08/11/20 20:59 08/05/20 09:00 Chlorhexidine Gluconate (Maddie-Hex 2%) 1 applic STAT TOPIC 08/05/20 15:35 08/05/20 23:59 Enoxaparin Sodium (Lovenox) 60 mg EVERY 12 HOURS SUBQ 08/05/20 21:00 11/03/20 20:59 Fentanyl Citrate 250 ml @ 1 mls/hr Q24H IV 08/05/20 15:30 08/07/20 15:29 08/05/20 16:20 Gabapentin (Neurontin) 300 mg TID NG 08/05/20 09:00 09/04/20 08:59 08/05/20 09:00 Lidocaine (Xylocaine 1% MPF 5ml) 10 ml ONCE PRN INJ CENTRAL LINE INSERTION 08/05/20 15:45 08/05/20 23:59 Lorazepam (Ativan 2mg/ml 1ml) 0.5 mg Q6H PRN IV For Anxiety 08/04/20 21:30 08/11/20 21:29 Methylprednisolone Sodium Succinate (Solu-MEDROL) 40 mg EVERY 6 HOURS IVP 08/05/20 12:00 11/03/20 11:59 08/05/20 12:42 Metronidazole 100 ml @ 100 mls/hr Q8HR IVPB 08/04/20 14:00 08/11/20 13:59 08/05/20 06:12 Midazolam HCl 200 ml @ 0 mls/hr Q24H PRN IV To Patient Comfort 08/05/20 15:30 08/12/20 15:29 08/05/20 16:20 Norepinephrine Bitartrate 250 ml @ 0 mls/hr Q24H IV 08/05/20 17:45 08/08/20 17:32 Vancomycin HCl (Vanco pharmacy to dose) 1 ea DAILY PRN MISC Per rx protocol 08/04/20 09:15 09/03/20 09:14 Vancomycin HCl 1 gm/Sodium Chloride 275 ml @ 183.708 mls/hr Q12HR IVPB 08/05/20 00:00 08/10/20 00:00 08/05/20 09:00 Kemar Nichole MD Aug 05, 2020 18:08
--- NOTE | 2020-08-05 19:10 | NUR ---
NURSE NOTES: RN received report from Diana. Patient has Levophed infusing at 30mcg/hr to maintain bp. patient also has Versed and Fentanyl infusing for sedation. Patient sedated. Patient is on a mechanical ventilator with the setting of AC 16. Tidal Volume 500. PEEP 5 and FIO2 100%. Patient o2 saturation is 100%. Patient repositioned. RN will continue to monitor.
--- NOTE | 2020-08-05 20:29 | Consultation ---
DATE OF CONSULTATION: 08/05/2020 INFECTIOUS DISEASE CONSULTATION CONSULTING PHYSICIAN: Kemar Nichole MD ATTENDING PHYSICIAN: Torres Saul MD REFERRING PHYSICIAN: Torres Saul MD REASON FOR CONSULTATION: Sepsis shock, gram-positive bacteremia, leukocytosis, fevers, possible pneumonia, respiratory failure, sepsis. REASON FOR ADMISSION: Respiratory insufficiency, respiratory failure, and sepsis. HISTORY OF PRESENT ILLNESS: This is an 79-year-old male who presents to [facility] with respiratory insufficiency. Patient was febrile and tachycardic and had SIRS criteria and was septic. Patient was started on steroids and Vanco, cefepime, and Flagyl. Patient has urinary tract infection. Patient now is in respiratory failure on a vent and will require pressors in septic shock. Patient has a right infiltrate. Infectious Disease consultation requested for antibiotic management. Patient is continued on Vanco, cefepime, and Flagyl. He is allergic to penicillin. Blood cultures with gram-positive organisms. Patient colonized with MRSA. COVID testing is pending. Patient currently is in ICU on vent and requires pressors. Case discussed with ION. YARITZA was noted. Orders were noted. Notes were reviewed. Blood cultures, gram-positive, identification is pending. REVIEW OF SYSTEMS: CONSTITUTIONAL: Patient currently is on a vent. He is in respiratory failure. He will require pressors per nursing staff. He is in the ICU. He came in with fevers. HEAD AND NECK: Orally intubated. CARDIAC: He will get pressors. GASTROINTESTINAL: No nausea, vomiting, or diarrhea. GENITOURINARY: He does have a Butler. PULMONARY: He is on a vent. No significant secretions noted. SKIN: No rash. NEUROLOGIC: No seizures. Generalized fatigue, weakness. Sedated at this time. EXTREMITIES: Cannot be assess. Review of systems is otherwise limited in this patient, but he did come in with shortness of breath and now is in respiratory failure. PAST MEDICAL HISTORY: Patient has a past medical history of hypertension, CHF, COPD, prostate cancer, anemia, CVA, aspiration risk, peripheral vascular disease, GERD, depression, seizure disorder, and history of COVID diagnosed in the past 2019. ALLERGIES: He has allergies to penicillin and phenytoin, unclear what type of allergy is. SOCIAL HISTORY: Negative for smoking, alcohol, or drug abuse. FAMILY HISTORY: Noncontributory. Negative for tuberculosis exposure or cancer. MEDICATIONS: Upon reviewing the MAR, he is on following medications. He is on enoxaparin, norepinephrine, chlorhexidine, methylprednisolone, Vancomycin, cefepime, Flagyl, lorazepam, gabapentin, albuterol treatments. He will require pressors, I believe norepinephrine. Outside medications noted and reconciliated. He was on Tylenol, Eliquis, baclofen, docusate, famotidine, gabapentin, Saxon, DuoNeb, multivitamins, prednisone, and ivf. PHYSICAL EXAMINATION: VITAL SIGNS: Most recent temperature is 97.9, pulse rate 118, respiratory rate 16, saturation 87%, blood pressure 83/56. Patient required pressors. T-max 103. GENERAL: Patient is currently on a vent. He required pressors. HEAD AND NECK: He is orally intubated. Normocephalic. No icterus. HEART: Regular. No gallop or murmur. Tachycardic. ABDOMEN: Soft. Positive bowel sounds. LUNGS: Bilateral rhonchi and rales, mostly on the right. SKIN: No rash or dermatitis. MUSCULOSKELETAL: No effusions. Legs without cellulitis. PERIPHERAL VASCULAR: No gangrene or cyanosis. GENITOURINARY: He has a Butler. Urine is cloudy. LINE SITES: Without phlebitis. NEUROLOGIC: Generalized weakness. Sedated. He does have a new femoral line. LABORATORY DATA: Urinalysis had 15 to 20 white blood cells, many bacteria, positive leukocyte esterase. White count 12.3, hemoglobin 11.0. Creatinine 0.9, sodium 146. LFTs noted. COVID testing is pending. Cultures, MRSA screen is positive. Urine culture with mixed organisms and blood cultures had gram-positive cocci in clusters in both bottles. Followup cultures will be ordered. IMAGING STUDIES: Chest x-ray with right basilar infiltrate and right effusion is noted and reviewed. ASSESSMENT AND PLAN: 1. Patient has gram-positive bacteremia. Patient has sepsis shock. Patient has SIRS criteria, fevers, leukocytosis, tachycardia, low blood pressure consistent with septic shock. Patient could have an aspiration healthcare-acquired pneumonia. Patient has hypoxia, rule out COVID pneumonia. Patient does have history of COVID in the past; however, it has been over 3 months and it is unclear if he has new infection at this time. Patient is at high risk for aspiration healthcare-acquired pneumonia including MRSA pneumonia. He is colonized with MRSA. At this time, I agree with empiric antibiotics Vanco, cefepime, and Flagyl for MRSA gram-negative anaerobic coverage. Continue Vanco, cefepime, and Flagyl to cover pneumonia including aspiration and healthcare-acquired pneumonia especially with history of CVA and also possible community-acquired pneumonia. Check cultures including blood cultures, sputum culture F/u on urine culture. UA is positive, question of complicated UTI. Continue vent support and blood pressure support for sepsis shock and respiratory failure. Continue Vanco, cefepime, and Flagyl for pneumonia, UTI, sepsis shock, sepsis, fevers. Check cultures, laboratories, chest x-ray. Check identification of gram-positive organisms for the gram-positive bacteremia. Also check 2D echo if not ordered. 2. Await COVID testing. Patient is in COVID isolation with history of COVID in the past. 3. Patient is on steroids. 4. If patient has COVID infection or new COVID infection, patient is a poor candidate for remdesivir because of respiratory failure, mechanical ventilation. Probably not very beneficial action in a patient like this. 5. Vent care per Pulmonary Medicine. 6. Blood pressure support. 7. Hypertension. 8. CHF. 9. COPD. 10. Prostate cancer. 11. Anemia. 12. CVA. 13. Aspiration risk. 14. Peripheral vascular disease. 15. GERD. 16. Seizures. 17. Depression. 18. History of COVID infection in February 2020. 19. Continue treatment per primary consultants. 20. Orders were noted and entered. 21. Skin care protocol. 22. Allergies to penicillin and phenytoin. 23. Social history is negative. 24. Family history is noncontributory. 25. MAR is noted. 26. Case was discussed with RN. ADDENDUM: Patient has a new femoral line. He is colonized with MRSA. Kemar Nichole M.D. DR: MEGHAN JOB#: [id number] CC: TOBY
[2020-08-05] MEDS: Cefepime 2gm/D5W 110ml IV SCH ×2 (20:35)
[2020-08-05] MEDS: Enoxaparin 60mg Inj SUBQ SCH (20:36)
--- NOTE | 2020-08-05 21:45 | NUR ---
NURSE NOTES: Patient sedating, resting. Patient repositioned. Levofed titrated down to keep map above 50. Dr. Saul notified of low urine output and sinus tach on the monitor. Gave orders for NS bolus and to start maintenance after @75/hr. RN will continue to monitor.
--- NOTE | 2020-08-05 23:40 | NUR ---
NURSE NOTES: Patient resting. Patient repositioned. Vitals are stable at this time. RN able to titrate Levophed down and Fentanyl and Versed. RN will continue to monitor.
[2020-08-06] VITALS (76 sets, daily range): BP systolic 63–141; BP diastolic 39–83
--- NOTE | 2020-08-06 02:00 | NUR ---
NURSE NOTES: Patient vitals stable at this time. Patient sedated. patient repositioned. Butler draining. RN will continue to monitor.
--- NOTE | 2020-08-06 04:00 | NUR ---
NURSE NOTES: Patient vitals stable. Patient sedated and resting. Bath completed. Patient repositioned. Oral care Completed. RN will continue to monitor.
[2020-08-06 04:36] LABS: MEAN CORPUSCULAR VOLUME 92 FL (80-99); PLATELET COUNT 230 K/UL (150-450); RED BLOOD COUNT 3.25 M/UL (4.70-6.10); RED CELL DISTRIBUTION WIDTH 14.1 % (11.6-14.8); WHITE BLOOD COUNT 11.7 K/UL (4.8-10.8)
[2020-08-06 05:17] LABS: ALANINE AMINOTRANSFERASE 29 U/L (12-78); ALBUMIN 1.9 G/DL (3.4-5.0); ALBUMIN/GLOBULIN RATIO 0.5 (1.0-2.7); ALKALINE PHOSPHATASE 55 U/L (46-116); ANION GAP 6 mmol/L (5-15); ASPARTATE AMINO TRANSFERASE 31 U/L (15-37); BILIRUBIN,TOTAL 0.6 MG/DL (0.2-1.0); BLOOD UREA NITROGEN 20 mg/dL (7-18); CALCIUM 7.9 MG/DL (8.5-10.1); CARBON DIOXIDE 27 MMOL/L (21-32); CHLORIDE 114 MMOL/L (98-107); CREATININE 0.7 MG/DL (0.55-1.30); POTASSIUM 3.9 MMOL/L (3.5-5.1); SODIUM 147 MMOL/L (136-145)
[2020-08-06] MEDS: Solu-MEDROL 40mg Inj IVP SCH ×4 (05:51→23:25)
--- NOTE | 2020-08-06 06:15 | NUR ---
NURSE NOTES: Patient vitals stable. patient sedated. patient was repositioned for comfort. RN will continue to monitor.
[2020-08-06] MEDS: Versed 100mg/NS 200ml 200 ML IV PRN (07:26)
[2020-08-06] MEDS: Vancomycin 1 GM in NS 275 ML IVPB SCH (09:00)
[2020-08-06] MEDS: fentaNYL 2500mcg/NS 250ml 250 ML IV SCH (09:00)
--- NOTE | 2020-08-06 09:14 | NUR ---
RD ASSESSMENT & RECOMMENDATIONS SEE CARE ACTIVITY FOR COMPLETE ASSESSMENT DAILY ESTIMATED NEEDS: Needs based on Critical Care/ 75.7kg abw 22-28 kcals/kg 9229-0558 total kcals 1.2-2 g protein/kg 90-151 g total protein 25-30 mL/kg 7342-9423 total fluid mLs NUTRITION DIAGNOSIS: Swallowing difficulty R/T respiratory failure as evidenced by pt orally intubated, sedated, on pressor support, NPO at this time. CURRENT TF:NPO ENTERAL NUTRITION RECOMMENDATIONS: WHEN HEMODYNAMICALLY STABLE: Vital AF 1.2 @ goal of 60ml/hr x 24 hrs to provide 1440ml, 1728kcal, 108g prot, 1168ml free water * FEED WITH HEMODYNAMIC STABILITY -> Initiate Vital AF 1.2 @ 10ml/hr x 6hrs, advance 10ml q 6-8 hrs as tolerated to goal rate -> HOB over 30 degrees/ water flush 120ml q 4hrs without IVF WITHOUT HEMODYNAMIC STABILITY, rec trophic feeding of Vital AF @10ml/hr to maintain gut integrity (if able to keep HOB > 30 degrees ADDITIONAL RECOMMENDATIONS: 1) Calibrated bedscale wts 2) Monitor hemodynamic stability: NE @ 10mcg 3) Consider IV change to D5: Na trending up, to prevent hypoglycemia 4) Monitor lytes, replete as needed . .
[2020-08-06] MEDS: Gabapentin 300 MG/6 ML Soln NG SCH ×3 (09:40→17:39)
[2020-08-06] MEDS: Enoxaparin 60mg Inj SUBQ SCH ×2 (09:41→21:19)
[2020-08-06] MEDS: Cefepime 2gm/D5W 110ml IV SCH ×4 (09:41→21:18)
--- NOTE | 2020-08-06 10:23 | Cardiac Electrophysiology PN ---
Assessment/Plan Assessment/Plan 1. Respiratory failure. On the Vent and IV antibiotic. On 80% Fio2 Echocardiogram showed EF 50% 2. Questionable congestive heart failure. EF normal and BNP is only 39. 3. History of COVID pneumonia, status post vaccination for COVID. Currently on IV antibiotic and prednisone. 4. Questionable history of atrial fibrillation versus DVT. The patient is on Eliquis 2.5 mg b.i.d. Currently in SR Subjective Subjective Intubated yesterday and transferred to ICU on 80% Fio2 and PEEP 5 Off pressors and on NS 75cc/hr Objective Last 24 Hour Vital Signs Date Time Temp Pulse Resp B/P (MAP) Pulse Ox O2 Delivery O2 Flow Rate FiO2 08/06/20 10:00 77 16 124/74 (91) 97 08/06/20 09:45 78 16 121/74 (90) 97 08/06/20 09:30 78 16 119/73 (88) 97 08/06/20 09:15 79 16 121/74 (90) 97 08/06/20 09:00 16 121/67 08/06/20 09:00 79 16 120/67 (84) 97 08/06/20 08:15 73 16 126/79 (95) 100 08/06/20 08:00 100 08/06/20 08:00 78 08/06/20 08:00 76 16 128/74 (92) 100 08/06/20 07:45 80 16 117/73 (88) 100 08/06/20 07:30 75 16 129/71 (90) 100 08/06/20 07:26 12 109/62 Mechanical Ventilator 100 08/06/20 07:15 74 16 128/70 (89) 100 08/06/20 07:00 75 16 129/75 (93) 100 08/06/20 07:00 75 16 129/75 (93) 100 08/06/20 06:45 75 16 130/71 (90) 100 08/06/20 06:30 77 16 125/77 (93) 100 08/06/20 06:15 83 17 127/68 (87) 100 08/06/20 06:00 85 16 94/55 (68) 97 08/06/20 05:45 84 16 94/59 (71) 97 08/06/20 05:30 84 10 94/55 (68) 99 08/06/20 05:15 80 14 99/59 (72) 100 08/06/20 05:15 80 14 99/59 (72) 100 08/06/20 05:00 78 16 110/63 (79) 100 08/06/20 04:45 78 16 109/67 (81) 100 08/06/20 04:30 77 16 118/69 (85) 100 08/06/20 04:15 81 16 80/51 (61) 100 08/06/20 04:00 Mechanical Ventilator 08/06/20 04:00 100 08/06/20 04:00 86 16 102/63 (76) 100 08/06/20 04:00 86 16 102/63 (76) 100 08/06/20 04:00 78 08/06/20 03:45 86 16 103/65 (78) 100 08/06/20 03:30 91 16 91/62 (72) 97 08/06/20 03:27 89 16 60 08/06/20 03:15 82 16 99/67 (78) 100 08/06/20 03:15 82 16 99/67 (78) 100 08/06/20 03:00 80 16 128/72 (90) 100 08/06/20 02:45 82 14 119/70 (86) 100 08/06/20 02:30 84 16 115/66 (82) 100 08/06/20 02:15 84 16 110/64 (79) 100 08/06/20 02:00 82 16 109/68 (82) 100 08/06/20 01:45 82 16 109/65 (80) 100 08/06/20 01:45 82 16 109/65 (80) 100 08/06/20 01:30 81 16 131/70 (90) 100 08/06/20 01:15 81 16 127/77 (94) 100 08/06/20 01:00 80 21 128/74 (92) 100 08/06/20 00:45 90 26 84/48 (60) 100 08/06/20 00:30 84 24 123/67 (85) 100 08/06/20 00:15 89 9 115/65 (82) 100 08/06/20 00:00 92 10 141/77 (98) 100 08/06/20 00:00 88 08/06/20 00:00 92 10 141/77 (98) 100 08/06/20 00:00 100 08/06/20 00:00 Mechanical Ventilator 08/05/20 23:56 95 17 132/75 (94) 100 08/05/20 23:45 92 17 128/71 (90) 100 08/05/20 23:30 102 18 142/84 (103) 100 08/05/20 23:15 110 16 89/63 (72) 100 08/05/20 23:15 103/67 08/05/20 23:09 104 16 60 08/05/20 23:00 106 16 111/74 (86) 100 08/05/20 22:45 107 16 100 08/05/20 22:30 105 16 113/71 (85) 100 08/05/20 22:15 108 16 103/73 (83) 100 08/05/20 22:00 108 16 102/67 (79) 99 08/05/20 21:58 109 16 102/70 (81) 100 08/05/20 21:50 111 16 95/62 (73) 100 08/05/20 21:45 110 16 100 08/05/20 21:40 109 19 124/78 (93) 100 08/05/20 21:30 112 16 100 08/05/20 21:30 112 16 122/76 (91) 100 08/05/20 21:20 116 16 103/71 (82) 100 08/05/20 21:15 117 16 100 08/05/20 21:10 117 16 104/71 (82) 100 08/05/20 21:00 117 16 105/68 (80) 100 08/05/20 20:50 118 18 140/82 (101) 99 08/05/20 20:49 119 21 120/84 (96) 99 08/05/20 20:45 120 16 97 08/05/20 20:43 63/44 08/05/20 20:40 123 16 63/44 (50) 98 08/05/20 20:30 127 20 127/80 (96) 100 08/05/20 20:20 127 17 114/78 (90) 100 08/05/20 20:15 127 16 100 08/05/20 20:10 124 18 112/78 (89) 100 08/05/20 20:00 Mechanical Ventilator 08/05/20 20:00 100 08/05/20 20:00 130 08/05/20 20:00 128 16 107/80 (89) 100 08/05/20 19:50 128 16 111/77 (88) 99 08/05/20 19:45 128 11 99 08/05/20 19:40 130 16 99/71 (80) 99 08/05/20 19:30 128 12 96/73 (81) 98 08/05/20 19:23 128 16 60 08/05/20 19:20 127 20 96/70 (79) 98 08/05/20 19:15 130 16 97 08/05/20 19:10 128 14 103/72 (82) 97 08/05/20 19:00 129 13 95/77 (83) 97 08/05/20 18:50 130 13 97/75 (82) 97 08/05/20 18:45 130 6 97 08/05/20 18:37 127 12 110/79 (89) 97 08/05/20 18:35 124 9 104/72 (83) 96 08/05/20 18:30 122 5 82/66 (71) 96 08/05/20 18:21 117 18 81/56 (64) 95 08/05/20 18:15 113 18 95 08/05/20 18:13 112 22 71/53 (59) 96 08/05/20 18:11 113 21 69/44 (52) 97 08/05/20 18:05 114 18 122/101 (108) 94 08/05/20 18:00 113 16 50/41 (44) 95 08/05/20 17:45 115 16 93 08/05/20 17:45 68/40 08/05/20 17:33 119 16 68/49 (55) 88 08/05/20 17:30 118 16 87 08/05/20 17:30 118 16 87 08/05/20 17:26 119 16 83/56 (65) 83 08/05/20 17:26 119 16 83/56 (65) 83 08/05/20 17:23 120 16 77/59 (65) 82 08/05/20 17:23 120 16 77/59 (65) 82 08/05/20 17:15 120 16 08/05/20 17:15 120 16 08/05/20 17:05 24 117/71 Endotracheal Tube 08/05/20 17:05 20 86/65 Endotracheal Tube 08/05/20 17:00 121 16 92/62 (72) 08/05/20 17:00 121 16 92/62 (72) 08/05/20 16:50 24 117/71 Endotracheal Tube 08/05/20 16:50 24 117/71 08/05/20 16:45 120 16 08/05/20 16:35 24 141/103 Endotracheal Tube 08/05/20 16:35 20 133/101 Mechanical Ventilator 08/05/20 16:30 120 30 08/05/20 16:20 19 131/78 Venturi Mask 10.0 60 08/05/20 16:20 27 131/78 08/05/20 16:15 117 32 97 08/05/20 16:00 Venturi Mask 08/05/20 16:00 115 19 131/78 (95) 96 08/05/20 16:00 107 08/05/20 16:00 115 19 131/78 (95) 96 08/05/20 15:18 117 16 60 08/05/20 15:00 124 31 117/71 (86) 89 08/05/20 15:00 115 35 133/101 (112) 93 08/05/20 15:00 115 35 133/101 (112) 93 08/05/20 14:25 124 31 117/71 (86) 89 08/05/20 14:25 124 31 117/71 (86) 89 08/05/20 14:00 116 5 86/65 (72) 96 08/05/20 14:00 116 5 86/65 (72) 96 08/05/20 13:00 111 16 93/72 (79) 96 08/05/20 13:00 111 16 93/72 (79) 96 08/05/20 13:00 111 16 93/72 (79) 96 08/05/20 12:07 105 19 96/69 (78) 08/05/20 12:07 105 19 96/69 (78) 08/05/20 12:07 105 19 96/69 (78) 08/05/20 12:00 107 16 81/55 (64) 97 08/05/20 12:00 Venturi Mask 08/05/20 12:00 107 16 81/55 (64) 97 08/05/20 12:00 107 16 81/55 (64) 97 08/05/20 12:00 107 08/05/20 11:26 114 16 60 08/05/20 11:00 109 37 119/76 (90) 97 08/05/20 11:00 109 37 119/76 (90) 97 08/05/20 10:53 106 42 122/76 (91) 99 08/05/20 10:42 127/83 (98) Intake and Output 08/05/20 08/06/20 19:00 07:00 Intake Total 4106.70851 ml 1708.80475 ml Output Total 2080 ml 1160 ml Balance 2026.51932 ml 548.82287 ml Intake Oral 20 ml IV Total 4086.89932 ml 1708.11705 ml Output Urine Total 2080 ml 1160 ml # Bowel Movements 7 3 Laboratory Tests Test 08/05/20 15:05 08/06/20 03:15 08/06/20 08:17 Arterial Blood pH 7.417 (7.350-7.450) 7.294 (7.350-7.450) Arterial Blood Partial Pressure CO2 51.1 mmHg (35.0-45.0) H 56.8 mmHg (35.0-45.0) *H Arterial Blood Partial Pressure O2 60.9 mmHg (75.0-100.0) L 80.9 mmHg (75.0-100.0) Arterial Blood HCO3 32.2 mmol/L (22.0-26.0) H 26.9 mmol/L (22.0-26.0) H Arterial Blood Oxygen Saturation 92.0 % (95-100) L 94.4 % (95-100) L Arterial Blood Base Excess 6.6 (-2-2) H -0.2 (-2-2) Chadwick Test Positive Positive White Blood Count 11.7 K/UL (4.8-10.8) H Red Blood Count 3.25 M/UL (4.70-6.10) L Hemoglobin 9.0 G/DL (14.2-18.0) L Hematocrit 30.0 % (42.0-52.0) L Mean Corpuscular Volume 92 FL (80-99) Mean Corpuscular Hemoglobin 27.7 PG (27.0-31.0) Mean Corpuscular Hemoglobin Concent 30.0 G/DL (32.0-36.0) L Red Cell Distribution Width 14.1 % (11.6-14.8) Platelet Count 230 K/UL (150-450) Mean Platelet Volume 5.9 FL (6.5-10.1) L Neutrophils (%) (Auto) % (45.0-75.0) Lymphocytes (%) (Auto) % (20.0-45.0) Monocytes (%) (Auto) % (1.0-10.0) Eosinophils (%) (Auto) % (0.0-3.0) Basophils (%) (Auto) % (0.0-2.0) Differential Total Cells Counted 100 Neutrophils % (Manual) 92 % (45-75) H Lymphocytes % (Manual) 7 % (20-45) L Monocytes % (Manual) 0 % (1-10) L Eosinophils % (Manual) 0 % (0-3) Basophils % (Manual) 1 % (0-2) Band Neutrophils 0 % (0-8) Nucleated Red Blood Cells 1 /100 WBC Platelet Estimate Adequate Platelet Morphology Normal Hypochromasia 2+ Sodium Level 147 MMOL/L (136-145) H Potassium Level 3.9 MMOL/L (3.5-5.1) Chloride Level 114 MMOL/L (98-107) H Carbon Dioxide Level 27 MMOL/L (21-32) Anion Gap 6 mmol/L (5-15) Blood Urea Nitrogen 20 mg/dL (7-18) H Creatinine 0.7 MG/DL (0.55-1.30) Estimat Glomerular Filtration Rate > 60 mL/min (>60) Glucose Level 110 MG/DL (74-106) H Calcium Level 7.9 MG/DL (8.5-10.1) L Total Bilirubin 0.6 MG/DL (0.2-1.0) Aspartate Amino Transf (AST/SGOT) 31 U/L (15-37) Alanine Aminotransferase (ALT/SGPT) 29 U/L (12-78) Alkaline Phosphatase 55 U/L (46-116) Total Protein 5.5 G/DL (6.4-8.2) L Albumin 1.9 G/DL (3.4-5.0) L Globulin 3.6 g/dL Albumin/Globulin Ratio 0.5 (1.0-2.7) L Microbiology Date/Time Source Procedure Growth Status 08/04/20 05:50 Rectum - Final NO CARBAPENEM-RESISTANT ENTEROBACTERI... Complete 08/04/20 05:50 Rectum VRE Culture - Final NO VANCOMYCIN RESISTANT ENTEROCOCCUS ... Complete 08/04/20 05:50 Nasal Nares MRSA Culture - Final Staphylococcus Aureus - Mrsa Complete 08/03/20 19:41 Urine,Clean Catch Urine Culture - Final Mixed Gram Positive Organism Complete 08/03/20 19:08 Blood Blood Culture - Preliminary Staphylococcus Sp Coag Neg Resulted Objective HEAD AND NECK: Orally intubated LUNGS: Coarse rhonchi. CARDIOVASCULAR: Regular S1 and S2 with no gallop. ABDOMEN: Soft. EXTREMITIES: 1 plus pitting edema. Devyn Magdaleno MD Aug 06, 2020 10:23
--- NOTE | 2020-08-06 10:36 | Consultation ---
Consult Note Consult Note I am asked to evaluate the patient at the request of Dr. Saul for oliguria and fluid and electrolyte management Day 3 of patient's hospitalization here at [facility] Patient is in ICU. Patient is intubated on ventilator. Patient examined discussed with RN. Labs reviewed. PHYSICAL EXAMINATION: VITAL SIGNS: Show blood pressure of 138/88, pulse 113, respirations 20, temperature 97. HEAD AND NECK: Showed no JVD. LUNGS: Coarse rhonchi. CARDIOVASCULAR: Regular S1 and S2 with no gallop. ABDOMEN: Soft. EXTREMITIES: No pitting edema. LABORATORY DATA: Labs show white count of 6.2, hemoglobin of 11.9, hematocrit 40, and platelet count is 267. Sodium 141, potassium 4.4, BUN of 18, creatinine of 1, and glucose of 107. First troponin is negative. Followup troponin is pending. . Assessment/Plan Sepsis, respiratory failure Pneumonia and possible aspiration. Questionable COVID-19 infection UTI Abnormal electrolytes Questionable CHF Anemia Optimize pulmonary status Optimize cardiac status Monitor renal parameters, urine output, electrolytes Change IV to half-normal saline Anemia mansfield Insert NG tube and start feeding Per orders Aashish Burgess MD Aug 06, 2020 10:36
--- NOTE | 2020-08-06 10:43 | Pulmonology Progress Note ---
Subjective ROS Limited/Unobtainable: Yes Interval Events: Intubated 08/05/20 Constitutional: Reports: no symptoms HEENT: Repors: no symptoms Respiratory: Reports: shortness of breath Cardiovascular: Reports: no symptoms Gastrointestinal/Abdominal: Reports: no symptoms Genitourinary: Reports: no symptoms Neurologic: Reports: no symptoms Allergies: Coded Allergies: PENICILLINS (Verified Allergy, Unknown, 03/10/20) PHENYTOIN (Verified Allergy, Unknown, 03/10/20) Objective Last 24 Hour Vital Signs Date Time Temp Pulse Resp B/P (MAP) Pulse Ox O2 Delivery O2 Flow Rate FiO2 08/06/20 10:00 77 16 124/74 (91) 97 08/06/20 09:45 78 16 121/74 (90) 97 08/06/20 09:30 78 16 119/73 (88) 97 08/06/20 09:15 79 16 121/74 (90) 97 08/06/20 09:00 16 121/67 08/06/20 09:00 79 16 120/67 (84) 97 08/06/20 08:15 73 16 126/79 (95) 100 08/06/20 08:00 100 08/06/20 08:00 78 08/06/20 08:00 76 16 128/74 (92) 100 08/06/20 07:45 80 16 117/73 (88) 100 08/06/20 07:30 75 16 129/71 (90) 100 08/06/20 07:26 12 109/62 Mechanical Ventilator 100 08/06/20 07:15 74 16 128/70 (89) 100 08/06/20 07:00 75 16 129/75 (93) 100 08/06/20 07:00 75 16 129/75 (93) 100 08/06/20 06:45 75 16 130/71 (90) 100 08/06/20 06:30 77 16 125/77 (93) 100 08/06/20 06:15 83 17 127/68 (87) 100 08/06/20 06:00 85 16 94/55 (68) 97 08/06/20 05:45 84 16 94/59 (71) 97 08/06/20 05:30 84 10 94/55 (68) 99 08/06/20 05:15 80 14 99/59 (72) 100 08/06/20 05:15 80 14 99/59 (72) 100 08/06/20 05:00 78 16 110/63 (79) 100 08/06/20 04:45 78 16 109/67 (81) 100 08/06/20 04:30 77 16 118/69 (85) 100 08/06/20 04:15 81 16 80/51 (61) 100 08/06/20 04:00 Mechanical Ventilator 08/06/20 04:00 100 08/06/20 04:00 86 16 102/63 (76) 100 08/06/20 04:00 86 16 102/63 (76) 100 08/06/20 04:00 78 08/06/20 03:45 86 16 103/65 (78) 100 08/06/20 03:30 91 16 91/62 (72) 97 08/06/20 03:27 89 16 60 08/06/20 03:15 82 16 99/67 (78) 100 08/06/20 03:15 82 16 99/67 (78) 100 08/06/20 03:00 80 16 128/72 (90) 100 08/06/20 02:45 82 14 119/70 (86) 100 08/06/20 02:30 84 16 115/66 (82) 100 08/06/20 02:15 84 16 110/64 (79) 100 08/06/20 02:00 82 16 109/68 (82) 100 08/06/20 01:45 82 16 109/65 (80) 100 08/06/20 01:45 82 16 109/65 (80) 100 08/06/20 01:30 81 16 131/70 (90) 100 08/06/20 01:15 81 16 127/77 (94) 100 08/06/20 01:00 80 21 128/74 (92) 100 08/06/20 00:45 90 26 84/48 (60) 100 08/06/20 00:30 84 24 123/67 (85) 100 08/06/20 00:15 89 9 115/65 (82) 100 08/06/20 00:00 92 10 141/77 (98) 100 08/06/20 00:00 88 08/06/20 00:00 92 10 141/77 (98) 100 08/06/20 00:00 100 08/06/20 00:00 Mechanical Ventilator 08/05/20 23:56 95 17 132/75 (94) 100 08/05/20 23:45 92 17 128/71 (90) 100 08/05/20 23:30 102 18 142/84 (103) 100 08/05/20 23:15 110 16 89/63 (72) 100 08/05/20 23:15 103/67 08/05/20 23:09 104 16 60 08/05/20 23:00 106 16 111/74 (86) 100 08/05/20 22:45 107 16 100 08/05/20 22:30 105 16 113/71 (85) 100 08/05/20 22:15 108 16 103/73 (83) 100 08/05/20 22:00 108 16 102/67 (79) 99 08/05/20 21:58 109 16 102/70 (81) 100 08/05/20 21:50 111 16 95/62 (73) 100 08/05/20 21:45 110 16 100 08/05/20 21:40 109 19 124/78 (93) 100 08/05/20 21:30 112 16 100 08/05/20 21:30 112 16 122/76 (91) 100 08/05/20 21:20 116 16 103/71 (82) 100 08/05/20 21:15 117 16 100 08/05/20 21:10 117 16 104/71 (82) 100 08/05/20 21:00 117 16 105/68 (80) 100 08/05/20 20:50 118 18 140/82 (101) 99 08/05/20 20:49 119 21 120/84 (96) 99 08/05/20 20:45 120 16 97 08/05/20 20:43 63/44 08/05/20 20:40 123 16 63/44 (50) 98 08/05/20 20:30 127 20 127/80 (96) 100 08/05/20 20:20 127 17 114/78 (90) 100 08/05/20 20:15 127 16 100 08/05/20 20:10 124 18 112/78 (89) 100 08/05/20 20:00 Mechanical Ventilator 08/05/20 20:00 100 08/05/20 20:00 130 08/05/20 20:00 128 16 107/80 (89) 100 08/05/20 19:50 128 16 111/77 (88) 99 08/05/20 19:45 128 11 99 08/05/20 19:40 130 16 99/71 (80) 99 08/05/20 19:30 128 12 96/73 (81) 98 08/05/20 19:23 128 16 60 08/05/20 19:20 127 20 96/70 (79) 98 08/05/20 19:15 130 16 97 08/05/20 19:10 128 14 103/72 (82) 97 08/05/20 19:00 129 13 95/77 (83) 97 08/05/20 18:50 130 13 97/75 (82) 97 08/05/20 18:45 130 6 97 08/05/20 18:37 127 12 110/79 (89) 97 08/05/20 18:35 124 9 104/72 (83) 96 08/05/20 18:30 122 5 82/66 (71) 96 08/05/20 18:21 117 18 81/56 (64) 95 08/05/20 18:15 113 18 95 08/05/20 18:13 112 22 71/53 (59) 96 08/05/20 18:11 113 21 69/44 (52) 97 08/05/20 18:05 114 18 122/101 (108) 94 08/05/20 18:00 113 16 50/41 (44) 95 08/05/20 17:45 115 16 93 08/05/20 17:45 68/40 08/05/20 17:33 119 16 68/49 (55) 88 08/05/20 17:30 118 16 87 08/05/20 17:30 118 16 87 08/05/20 17:26 119 16 83/56 (65) 83 08/05/20 17:26 119 16 83/56 (65) 83 08/05/20 17:23 120 16 77/59 (65) 82 08/05/20 17:23 120 16 77/59 (65) 82 08/05/20 17:15 120 16 08/05/20 17:15 120 16 08/05/20 17:05 24 117/71 Endotracheal Tube 08/05/20 17:05 20 86/65 Endotracheal Tube 08/05/20 17:00 121 16 92/62 (72) 08/05/20 17:00 121 16 92/62 (72) 08/05/20 16:50 24 117/71 Endotracheal Tube 08/05/20 16:50 24 117/71 08/05/20 16:45 120 16 08/05/20 16:35 24 141/103 Endotracheal Tube 08/05/20 16:35 20 133/101 Mechanical Ventilator 08/05/20 16:30 120 30 08/05/20 16:20 19 131/78 Venturi Mask 10.0 60 08/05/20 16:20 27 131/78 08/05/20 16:15 117 32 97 08/05/20 16:00 Venturi Mask 08/05/20 16:00 115 19 131/78 (95) 96 08/05/20 16:00 107 08/05/20 16:00 115 19 131/78 (95) 96 08/05/20 15:18 117 16 60 08/05/20 15:00 124 31 117/71 (86) 89 08/05/20 15:00 115 35 133/101 (112) 93 08/05/20 15:00 115 35 133/101 (112) 93 08/05/20 14:25 124 31 117/71 (86) 89 08/05/20 14:25 124 31 117/71 (86) 89 08/05/20 14:00 116 5 86/65 (72) 96 08/05/20 14:00 116 5 86/65 (72) 96 08/05/20 13:00 111 16 93/72 (79) 96 08/05/20 13:00 111 16 93/72 (79) 96 08/05/20 13:00 111 16 93/72 (79) 96 08/05/20 12:07 105 19 96/69 (78) 08/05/20 12:07 105 19 96/69 (78) 08/05/20 12:07 105 19 96/69 (78) 08/05/20 12:00 107 16 81/55 (64) 97 08/05/20 12:00 Venturi Mask 08/05/20 12:00 107 16 81/55 (64) 97 08/05/20 12:00 107 16 81/55 (64) 97 08/05/20 12:00 107 08/05/20 11:26 114 16 60 08/05/20 11:00 109 37 119/76 (90) 97 08/05/20 11:00 109 37 119/76 (90) 97 08/05/20 10:53 106 42 122/76 (91) 99 Intake and Output 08/05/20 08/06/20 19:00 07:00 Intake Total 4106.33320 ml 1708.60972 ml Output Total 2080 ml 1160 ml Balance 2026.10430 ml 548.88138 ml Intake Oral 20 ml IV Total 4086.14908 ml 1708.92910 ml Output Urine Total 2080 ml 1160 ml # Bowel Movements 7 3 General Appearance: no acute distress HEENT: normocephalic Respiratory: chest wall non-tender, lungs clear Cardiovascular: normal peripheral pulses, normal rate Abdomen: normal bowel sounds Extremities: no cyanosis Microbiology Date/Time Source Procedure Growth Status 08/04/20 05:50 Rectum - Final NO CARBAPENEM-RESISTANT ENTEROBACTERI... Complete 08/04/20 05:50 Rectum VRE Culture - Final NO VANCOMYCIN RESISTANT ENTEROCOCCUS ... Complete 08/04/20 05:50 Nasal Nares MRSA Culture - Final Staphylococcus Aureus - Mrsa Complete 08/03/20 19:41 Urine,Clean Catch Urine Culture - Final Mixed Gram Positive Organism Complete 08/03/20 19:08 Blood Blood Culture - Preliminary Staphylococcus Sp Coag Neg Resulted Laboratory Tests 08/05/20 15:05: Arterial Blood pH 7.417, Arterial Blood Partial Pressure CO2 51.1H, Arterial Blood Partial Pressure O2 60.9L, Arterial Blood HCO3 32.2H, Arterial Blood Oxygen Saturation 92.0L, Arterial Blood Base Excess 6.6H, Chadwick Test Positive 08/06/20 03:15: White Blood Count 11.7H, Red Blood Count 3.25L, Hemoglobin 9.0L, Hematocrit 30.0L, Mean Corpuscular Volume 92, Mean Corpuscular Hemoglobin 27.7, Mean Corpuscular Hemoglobin Concent 30.0L, Red Cell Distribution Width 14.1, Platelet Count 230, Mean Platelet Volume 5.9L, Neutrophils (%) (Auto) , Lymphocytes (%) (Auto) , Monocytes (%) (Auto) , Eosinophils (%) (Auto) , Basophils (%) (Auto) , Differential Total Cells Counted 100, Neutrophils % (Manual) 92H, Lymphocytes % (Manual) 7L, Monocytes % (Manual) 0L, Eosinophils % (Manual) 0, Basophils % (Manual) 1, Band Neutrophils 0, Nucleated Red Blood Cells 1, Platelet Estimate Adequate, Platelet Morphology Normal, Hypochromasia 2+, Sodium Level 147H, Potassium Level 3.9, Chloride Level 114H, Carbon Dioxide Level 27, Anion Gap 6, Blood Urea Nitrogen 20H, Creatinine 0.7, Estimat Glomerular Filtration Rate > 60, Glucose Level 110H, Calcium Level 7.9L, Total Bilirubin 0.6, Aspartate Amino Transf (AST/SGOT) 31, Alanine Aminotransferase (ALT/SGPT) 29, Alkaline Phosphatase 55, Total Protein 5.5L, Albumin 1.9L, Globulin 3.6, Albumin/Globulin Ratio 0.5L 08/06/20 08:17: Arterial Blood pH 7.294L, Arterial Blood Partial Pressure CO2 56.8*H, Arterial Blood Partial Pressure O2 80.9, Arterial Blood HCO3 26.9H, Arterial Blood Oxygen Saturation 94.4L, Arterial Blood Base Excess -0.2, Chadwick Test Positive Current Medications Medications (Trade) Dose Ordered Sig/Armand Route PRN Reason Start Time Stop Time Status Last Admin Dose Admin Albuterol/ Ipratropium (Combivent Respimat) 1 puff Q4H PRN INH Shortness of Breath 08/04/20 10:00 09/03/20 09:59 Albuterol/ Ipratropium (Combivent Respimat) 1 puff Q8HR INH 08/04/20 09:30 09/03/20 09:29 08/05/20 14:00 Cefepime HCl 2 gm/ Dextrose 110 ml @ 220 mls/hr EVERY 12 HOURS IV 08/05/20 21:00 08/12/20 20:59 08/06/20 09:41 Dextrose/Sodium Chloride 1,000 ml @ 75 mls/hr [id number] IV 08/06/20 10:45 09/05/20 10:44 UNV Enoxaparin Sodium (Lovenox) 60 mg EVERY 12 HOURS SUBQ 08/05/20 21:00 11/03/20 20:59 08/06/20 09:41 Famotidine (Pepcid I.v.) 20 mg Q12HR IVP 08/06/20 10:45 09/05/20 10:44 UNV Fentanyl Citrate 250 ml @ 1 mls/hr Q24H IV 08/05/20 15:30 08/07/20 15:29 08/06/20 09:00 Gabapentin (Neurontin) 300 mg TID NG 08/05/20 09:00 09/04/20 08:59 08/06/20 09:40 Lorazepam (Ativan 2mg/ml 1ml) 0.5 mg Q6H PRN IV For Anxiety 08/04/20 21:30 08/11/20 21:29 Methylprednisolone Sodium Succinate (Solu-MEDROL) 40 mg EVERY 6 HOURS IVP 08/05/20 12:00 11/03/20 11:59 08/06/20 05:51 Metronidazole 100 ml @ 100 mls/hr Q8HR IVPB 08/04/20 14:00 08/11/20 13:59 08/06/20 05:52 Midazolam HCl 200 ml @ 0 mls/hr Q24H PRN IV To Patient Comfort 08/05/20 15:30 08/12/20 15:29 08/06/20 07:26 Norepinephrine Bitartrate 250 ml @ 0 mls/hr Q24H IV 08/05/20 17:45 08/08/20 17:32 08/05/20 23:15 Vancomycin HCl ([facility] pharmacy to dose) 1 ea DAILY PRN MISC Per rx protocol 08/04/20 09:15 09/03/20 09:14 Vancomycin HCl 1 gm/Sodium Chloride 275 ml @ 183.708 mls/hr Q12HR IVPB 08/05/20 00:00 08/10/20 00:00 08/05/20 20:35 Assessment/Plan Assessment/Plan 1. UTI -On empiric antibiotics -Follow-up UCx negative (08/03) 2. Pneumonia -On broad-spectrum antibiotics - CXR concerning for volume loss -> await CT chest 3. COPD exacerbation -Now intubated 4. Respiratory distress - Continue steroids 5. History of seizures -Risk of aspiration -Monitor for seizure activity 6. Elevated CRP -D-dimer wnl -His outpatient medications include Eliquis (hx of A fib?) - Continue Eliquis 7. Monitor carefully in ICU S/p intubation On Levophed Continue AC mode FiO2 90% PEEP 5 Micha Schneider MD Aug 06, 2020 10:43
--- NOTE | 2020-08-06 11:13 | Surgery Progress Note ---
Surgery Progress Note Subjective Additional Comments Declined intubated in ICU possible aspiration chest x-ray reviewed labs noted on ventilator support PEEP 5 FiO2 80% weaning. Sedated unresponsive at this time. Objective Last 24 Hour Vital Signs Date Time Temp Pulse Resp B/P (MAP) Pulse Ox O2 Delivery O2 Flow Rate FiO2 08/06/20 10:00 77 16 124/74 (91) 97 08/06/20 09:45 78 16 121/74 (90) 97 08/06/20 09:30 78 16 119/73 (88) 97 08/06/20 09:15 79 16 121/74 (90) 97 08/06/20 09:00 16 121/67 08/06/20 09:00 79 16 120/67 (84) 97 08/06/20 08:15 73 16 126/79 (95) 100 08/06/20 08:00 100 08/06/20 08:00 78 08/06/20 08:00 76 16 128/74 (92) 100 08/06/20 07:45 80 16 117/73 (88) 100 08/06/20 07:30 75 16 129/71 (90) 100 08/06/20 07:26 12 109/62 Mechanical Ventilator 100 08/06/20 07:26 75 16 80 08/06/20 07:15 74 16 128/70 (89) 100 08/06/20 07:00 75 16 129/75 (93) 100 08/06/20 07:00 75 16 129/75 (93) 100 08/06/20 06:45 75 16 130/71 (90) 100 08/06/20 06:30 77 16 125/77 (93) 100 08/06/20 06:15 83 17 127/68 (87) 100 08/06/20 06:00 85 16 94/55 (68) 97 08/06/20 05:45 84 16 94/59 (71) 97 08/06/20 05:30 84 10 94/55 (68) 99 08/06/20 05:15 80 14 99/59 (72) 100 08/06/20 05:15 80 14 99/59 (72) 100 08/06/20 05:00 78 16 110/63 (79) 100 08/06/20 04:45 78 16 109/67 (81) 100 08/06/20 04:30 77 16 118/69 (85) 100 08/06/20 04:15 81 16 80/51 (61) 100 08/06/20 04:00 Mechanical Ventilator 08/06/20 04:00 100 08/06/20 04:00 86 16 102/63 (76) 100 08/06/20 04:00 86 16 102/63 (76) 100 08/06/20 04:00 78 08/06/20 03:45 86 16 103/65 (78) 100 08/06/20 03:30 91 16 91/62 (72) 97 08/06/20 03:27 89 16 60 08/06/20 03:15 82 16 99/67 (78) 100 08/06/20 03:15 82 16 99/67 (78) 100 08/06/20 03:00 80 16 128/72 (90) 100 08/06/20 02:45 82 14 119/70 (86) 100 08/06/20 02:30 84 16 115/66 (82) 100 08/06/20 02:15 84 16 110/64 (79) 100 08/06/20 02:00 82 16 109/68 (82) 100 08/06/20 01:45 82 16 109/65 (80) 100 08/06/20 01:45 82 16 109/65 (80) 100 08/06/20 01:30 81 16 131/70 (90) 100 08/06/20 01:15 81 16 127/77 (94) 100 08/06/20 01:00 80 21 128/74 (92) 100 08/06/20 00:45 90 26 84/48 (60) 100 08/06/20 00:30 84 24 123/67 (85) 100 08/06/20 00:15 89 9 115/65 (82) 100 08/06/20 00:00 92 10 141/77 (98) 100 08/06/20 00:00 88 08/06/20 00:00 92 10 141/77 (98) 100 08/06/20 00:00 100 08/06/20 00:00 Mechanical Ventilator 08/05/20 23:56 95 17 132/75 (94) 100 08/05/20 23:45 92 17 128/71 (90) 100 08/05/20 23:30 102 18 142/84 (103) 100 08/05/20 23:15 110 16 89/63 (72) 100 08/05/20 23:15 103/67 08/05/20 23:09 104 16 60 08/05/20 23:00 106 16 111/74 (86) 100 08/05/20 22:45 107 16 100 08/05/20 22:30 105 16 113/71 (85) 100 08/05/20 22:15 108 16 103/73 (83) 100 08/05/20 22:00 108 16 102/67 (79) 99 08/05/20 21:58 109 16 102/70 (81) 100 08/05/20 21:50 111 16 95/62 (73) 100 08/05/20 21:45 110 16 100 08/05/20 21:40 109 19 124/78 (93) 100 08/05/20 21:30 112 16 100 08/05/20 21:30 112 16 122/76 (91) 100 08/05/20 21:20 116 16 103/71 (82) 100 08/05/20 21:15 117 16 100 08/05/20 21:10 117 16 104/71 (82) 100 08/05/20 21:00 117 16 105/68 (80) 100 08/05/20 20:50 118 18 140/82 (101) 99 08/05/20 20:49 119 21 120/84 (96) 99 08/05/20 20:45 120 16 97 08/05/20 20:43 63/44 08/05/20 20:40 123 16 63/44 (50) 98 08/05/20 20:30 127 20 127/80 (96) 100 08/05/20 20:20 127 17 114/78 (90) 100 08/05/20 20:15 127 16 100 08/05/20 20:10 124 18 112/78 (89) 100 08/05/20 20:00 Mechanical Ventilator 08/05/20 20:00 100 08/05/20 20:00 130 08/05/20 20:00 128 16 107/80 (89) 100 08/05/20 19:50 128 16 111/77 (88) 99 08/05/20 19:45 128 11 99 08/05/20 19:40 130 16 99/71 (80) 99 08/05/20 19:30 128 12 96/73 (81) 98 08/05/20 19:23 128 16 60 08/05/20 19:20 127 20 96/70 (79) 98 08/05/20 19:15 130 16 97 08/05/20 19:10 128 14 103/72 (82) 97 08/05/20 19:00 129 13 95/77 (83) 97 08/05/20 18:50 130 13 97/75 (82) 97 08/05/20 18:45 130 6 97 08/05/20 18:37 127 12 110/79 (89) 97 08/05/20 18:35 124 9 104/72 (83) 96 08/05/20 18:30 122 5 82/66 (71) 96 08/05/20 18:21 117 18 81/56 (64) 95 08/05/20 18:15 113 18 95 08/05/20 18:13 112 22 71/53 (59) 96 08/05/20 18:11 113 21 69/44 (52) 97 08/05/20 18:05 114 18 122/101 (108) 94 08/05/20 18:00 113 16 50/41 (44) 95 08/05/20 17:45 115 16 93 08/05/20 17:45 68/40 08/05/20 17:33 119 16 68/49 (55) 88 08/05/20 17:30 118 16 87 08/05/20 17:30 118 16 87 08/05/20 17:26 119 16 83/56 (65) 83 08/05/20 17:26 119 16 83/56 (65) 83 08/05/20 17:23 120 16 77/59 (65) 82 08/05/20 17:23 120 16 77/59 (65) 82 08/05/20 17:15 120 16 08/05/20 17:15 120 16 08/05/20 17:05 24 117/71 Endotracheal Tube 08/05/20 17:05 20 86/65 Endotracheal Tube 08/05/20 17:00 121 16 92/62 (72) 08/05/20 17:00 121 16 92/62 (72) 08/05/20 16:50 24 117/71 Endotracheal Tube 08/05/20 16:50 24 117/71 08/05/20 16:45 120 16 08/05/20 16:35 24 141/103 Endotracheal Tube 08/05/20 16:35 20 133/101 Mechanical Ventilator 08/05/20 16:30 120 30 08/05/20 16:20 19 131/78 Venturi Mask 10.0 60 08/05/20 16:20 27 131/78 08/05/20 16:15 117 32 97 08/05/20 16:00 Venturi Mask 08/05/20 16:00 115 19 131/78 (95) 96 08/05/20 16:00 107 08/05/20 16:00 115 19 131/78 (95) 96 08/05/20 15:18 117 16 60 08/05/20 15:00 124 31 117/71 (86) 89 08/05/20 15:00 115 35 133/101 (112) 93 08/05/20 15:00 115 35 133/101 (112) 93 08/05/20 14:25 124 31 117/71 (86) 89 08/05/20 14:25 124 31 117/71 (86) 89 08/05/20 14:00 116 5 86/65 (72) 96 08/05/20 14:00 116 5 86/65 (72) 96 08/05/20 13:00 111 16 93/72 (79) 96 08/05/20 13:00 111 16 93/72 (79) 96 08/05/20 13:00 111 16 93/72 (79) 96 08/05/20 12:07 105 19 96/69 (78) 08/05/20 12:07 105 19 96/69 (78) 08/05/20 12:07 105 19 96/69 (78) 08/05/20 12:00 107 16 81/55 (64) 97 08/05/20 12:00 Venturi Mask 08/05/20 12:00 107 16 81/55 (64) 97 08/05/20 12:00 107 16 81/55 (64) 97 08/05/20 12:00 107 08/05/20 11:26 114 16 60 I&O Intake and Output 08/05/20 08/06/20 19:00 07:00 Intake Total 4106.28799 ml 1708.59792 ml Output Total 2080 ml 1160 ml Balance 2026.53489 ml 548.31518 ml Intake Oral 20 ml IV Total 4086.76136 ml 1708.30774 ml Output Urine Total 2080 ml 1160 ml # Bowel Movements 7 3 Dressing: saturated Cardiovascular: RSR Respiratory: decreased breath sounds Abdomen: soft, distended, non-tender, decreased bowel sounds Extremities: edema, no tenderness, no cyanosis Laboratory Tests Test 08/05/20 15:05 08/06/20 03:15 08/06/20 08:17 Arterial Blood pH 7.417 (7.350-7.450) 7.294 (7.350-7.450) Arterial Blood Partial Pressure CO2 51.1 mmHg (35.0-45.0) H 56.8 mmHg (35.0-45.0) *H Arterial Blood Partial Pressure O2 60.9 mmHg (75.0-100.0) L 80.9 mmHg (75.0-100.0) Arterial Blood HCO3 32.2 mmol/L (22.0-26.0) H 26.9 mmol/L (22.0-26.0) H Arterial Blood Oxygen Saturation 92.0 % (95-100) L 94.4 % (95-100) L Arterial Blood Base Excess 6.6 (-2-2) H -0.2 (-2-2) Chadwick Test Positive Positive White Blood Count 11.7 K/UL (4.8-10.8) H Red Blood Count 3.25 M/UL (4.70-6.10) L Hemoglobin 9.0 G/DL (14.2-18.0) L Hematocrit 30.0 % (42.0-52.0) L Mean Corpuscular Volume 92 FL (80-99) Mean Corpuscular Hemoglobin 27.7 PG (27.0-31.0) Mean Corpuscular Hemoglobin Concent 30.0 G/DL (32.0-36.0) L Red Cell Distribution Width 14.1 % (11.6-14.8) Platelet Count 230 K/UL (150-450) Mean Platelet Volume 5.9 FL (6.5-10.1) L Neutrophils (%) (Auto) % (45.0-75.0) Lymphocytes (%) (Auto) % (20.0-45.0) Monocytes (%) (Auto) % (1.0-10.0) Eosinophils (%) (Auto) % (0.0-3.0) Basophils (%) (Auto) % (0.0-2.0) Differential Total Cells Counted 100 Neutrophils % (Manual) 92 % (45-75) H Lymphocytes % (Manual) 7 % (20-45) L Monocytes % (Manual) 0 % (1-10) L Eosinophils % (Manual) 0 % (0-3) Basophils % (Manual) 1 % (0-2) Band Neutrophils 0 % (0-8) Nucleated Red Blood Cells 1 /100 WBC Platelet Estimate Adequate Platelet Morphology Normal Hypochromasia 2+ Sodium Level 147 MMOL/L (136-145) H Potassium Level 3.9 MMOL/L (3.5-5.1) Chloride Level 114 MMOL/L (98-107) H Carbon Dioxide Level 27 MMOL/L (21-32) Anion Gap 6 mmol/L (5-15) Blood Urea Nitrogen 20 mg/dL (7-18) H Creatinine 0.7 MG/DL (0.55-1.30) Estimat Glomerular Filtration Rate > 60 mL/min (>60) Glucose Level 110 MG/DL (74-106) H Calcium Level 7.9 MG/DL (8.5-10.1) L Total Bilirubin 0.6 MG/DL (0.2-1.0) Aspartate Amino Transf (AST/SGOT) 31 U/L (15-37) Alanine Aminotransferase (ALT/SGPT) 29 U/L (12-78) Alkaline Phosphatase 55 U/L (46-116) Total Protein 5.5 G/DL (6.4-8.2) L Albumin 1.9 G/DL (3.4-5.0) L Globulin 3.6 g/dL Albumin/Globulin Ratio 0.5 (1.0-2.7) L Plan Problems: (1) Abdominal distension Assessment & Plan: 79M abdominal distention, respiratory decline, altered mental status. on exam noted abd soft, mild distended, non tender. no n/v/f/c. unlikely aspiration. non tender one exam. pending urine and covid test. no acute surgical intervention. hold on ct. kub ordered. will follow with exam and recs. keep npo for now. iv fluids. respiratory pulm support. will follow with recs thank you decline since admission now intubated ng tube to suction no acute surgical intervention cont abx kub noted wean vent enema when stable The rectum is considerably distended with stool. Considerable stool is also seen in the descending colon. The colon is diffusely gas filled, upper limits of normal in caliber. No significant small bowel gas demonstrated. No masses or unusual calcifications. The included lung bases demonstrate bilateral right greater than left pleural effusions. There is a Butler catheter Impression: Distended stool-filled rectum, fecal impaction possible Gas-filled upper limits of normal caliber colon, nonspecific Bilateral right greater than left pleural effusions (2) UTI (urinary tract infection) (3) Pneumonia (4) Multiple pulmonary nodules (5) Respiratory failure with hypoxia (6) Pneumonia due to COVID-19 virus (7) History of CVA (cerebrovascular accident) (8) COPD (chronic obstructive pulmonary disease) (9) HTN (hypertension) (10) Hx of prostatic malignancy (11) Major depression (12) Seizure disorder Destin Brown Aug 06, 2020 11:13
[2020-08-06] MEDS: D5 1/2NS 1,000 ML IV SCH (11:29)
--- NOTE | 2020-08-06 13:00 | Diagnostic Imaging Report ---
Indication: Abnormal chest sounds Technique: One view of the chest Comparison: 08/05/2020 Findings: Stable satisfactory the position of endotracheal tube. There is developing atelectasis in the right upper lung. There is persistent pleural fluid on the right and increasing parenchymal consolidation. Left lung pleural space remain clear. The heart size is normal Impression: Increasing right upper lobe atelectasis and right lung infiltrate. Unchanged right pleural effusion
--- NOTE | 2020-08-06 14:26 | Diagnostic Imaging Report ---
Clinical Indication: COPD, respiratory distress, fever, tachypnea/tachycardia Technique: Spiral acquisitions obtained through the chest. No IV contrast utilized, reason not stated. Multiplanar reconstructions generated. Total dose length product 380 mGycm. CTDIvol(s) 9.6 mGy. Dose reduction achieved using automated exposure control Comparison: 03/18/2020 contrast study Findings: There is extensive dense consolidation of the vast majority of the right lower lobe. There is also consolidation of a significant portion of the right upper lobe . There is some narrowing of the right bronchus intermedius. There is considerable volume loss of the right upper lobe, resulting in compensatory hyperinflation of the right middle lobe. The right middle lobe appears to be largely clear. The left lung demonstrates a few areas of atelectasis in the upper and lower lobes, and may some very focal consolidation in the posterior left upper lobe. The left lung is hyperinflated, particularly the lower lobe. There is a very small amount of pleural fluid on the right. Calcified granulomata are seen in the left lower lobe. A noncalcified nodule is seen in the right middle lobe, image 24 of series 5. This is not definitely evident previously. The heart size is normal. The right main pulmonary artery is dilated, measuring 33 mm diameter. The left main pulmonary artery is slightly less dilated. No mediastinal or hilar mass or adenopathy. Unremarkable thyroid. There is an endotracheal tube, position of which appears satisfactory about 4 cm above the yashira. No pericardial effusion. No axillary or chest wall mass or adenopathy. Included upper abdominal anatomy demonstrates gallstones. Impression: Dense consolidation, likely representing pneumonia, involving the vast majority the right lower lobe, as well as a significant portion of the right upper lobe. Considerable right upper lobe atelectatic changes. COPD changes A few areas of atelectasis and possibly some consolidation is seen in the left lung Small right pleural fluid Evidence of old granulomatous disease 3 mm mm noncalcified nodule in the right middle lobe, not definitely evident previously. Recommend short interval 6 to 12 month follow-up CT scan Dilated right main pulmonary artery, indicative of pulmonary arterial hypertension Satisfactory endotracheal intubation Cholelithiasis The CT scanner at [facility] is accredited by the [employer] and the scans are performed using protocols designed to limit radiation exposure to as low as reasonably achievable to attain images of sufficient resolution adequate for diagnostic evaluation.
--- NOTE | 2020-08-06 14:32 | Internal Med Progress Note ---
Subjective Physician Name Torres Saul Attending Physician Torres Saul MD Current Medications Medications (Trade) Dose Ordered Sig/Armand Route PRN Reason Start Time Stop Time Status Last Admin Dose Admin Albuterol/ Ipratropium (Combivent Respimat) 1 puff Q4H PRN INH Shortness of Breath 08/04/20 10:00 09/03/20 09:59 Albuterol/ Ipratropium (Combivent Respimat) 1 puff Q8HR INH 08/04/20 09:30 09/03/20 09:29 08/05/20 14:00 Cefepime HCl 2 gm/ Dextrose 110 ml @ 220 mls/hr EVERY 12 HOURS IV 08/05/20 21:00 08/12/20 20:59 08/06/20 09:41 Dextrose/Sodium Chloride 1,000 ml @ 75 mls/hr [id number] IV 08/06/20 11:00 09/05/20 10:59 08/06/20 11:29 Enoxaparin Sodium (Lovenox) 60 mg EVERY 12 HOURS SUBQ 08/05/20 21:00 11/03/20 20:59 08/06/20 09:41 Famotidine (Pepcid I.v.) 20 mg Q12HR IVP 08/06/20 11:00 09/05/20 10:59 08/06/20 11:29 Fentanyl Citrate 250 ml @ 1 mls/hr Q24H IV 08/05/20 15:30 08/07/20 15:29 08/06/20 09:00 Gabapentin (Neurontin) 300 mg TID NG 08/05/20 09:00 09/04/20 08:59 08/06/20 09:40 Lorazepam (Ativan 2mg/ml 1ml) 0.5 mg Q6H PRN IV For Anxiety 08/04/20 21:30 08/11/20 21:29 Methylprednisolone Sodium Succinate (Solu-MEDROL) 40 mg EVERY 6 HOURS IVP 08/05/20 12:00 11/03/20 11:59 08/06/20 12:21 Metronidazole 100 ml @ 100 mls/hr Q8HR IVPB 08/04/20 14:00 08/11/20 13:59 08/06/20 05:52 Midazolam HCl 200 ml @ 0 mls/hr Q24H PRN IV To Patient Comfort 08/05/20 15:30 08/12/20 15:29 08/06/20 07:26 Norepinephrine Bitartrate 250 ml @ 0 mls/hr Q24H IV 08/05/20 17:45 08/08/20 17:32 08/05/20 23:15 Vancomycin HCl (Vanco pharmacy to dose) 1 ea DAILY PRN MISC Per rx protocol 08/04/20 09:15 09/03/20 09:14 Vancomycin HCl 1 gm/Sodium Chloride 275 ml @ 183.708 mls/hr Q12HR IVPB 08/05/20 00:00 08/10/20 00:00 08/06/20 09:00 Allergies: Coded Allergies: PENICILLINS (Verified Allergy, Unknown, 03/10/20) PHENYTOIN (Verified Allergy, Unknown, 03/10/20) Subjective In ICU, Intubated, in respiratory and droplet isolation room, remain on ventilation, sedated, WBC: 11.7, hemoglobin: 9.0. Objective Last Vital Signs Date Time Temp Pulse Resp B/P (MAP) Pulse Ox O2 Delivery O2 Flow Rate FiO2 08/06/20 13:45 104 26 91/74 (80) 92 08/06/20 12:00 100 08/06/20 07:26 Mechanical Ventilator 08/05/20 16:20 10.0 08/05/20 08:00 97.9 Laboratory Tests Test 08/05/20 15:05 08/06/20 03:15 08/06/20 08:17 Arterial Blood pH 7.417 (7.350-7.450) 7.294 (7.350-7.450) Arterial Blood Partial Pressure CO2 51.1 mmHg (35.0-45.0) H 56.8 mmHg (35.0-45.0) *H Arterial Blood Partial Pressure O2 60.9 mmHg (75.0-100.0) L 80.9 mmHg (75.0-100.0) Arterial Blood HCO3 32.2 mmol/L (22.0-26.0) H 26.9 mmol/L (22.0-26.0) H Arterial Blood Oxygen Saturation 92.0 % (95-100) L 94.4 % (95-100) L Arterial Blood Base Excess 6.6 (-2-2) H -0.2 (-2-2) Chadwick Test Positive Positive White Blood Count 11.7 K/UL (4.8-10.8) H Red Blood Count 3.25 M/UL (4.70-6.10) L Hemoglobin 9.0 G/DL (14.2-18.0) L Hematocrit 30.0 % (42.0-52.0) L Mean Corpuscular Volume 92 FL (80-99) Mean Corpuscular Hemoglobin 27.7 PG (27.0-31.0) Mean Corpuscular Hemoglobin Concent 30.0 G/DL (32.0-36.0) L Red Cell Distribution Width 14.1 % (11.6-14.8) Platelet Count 230 K/UL (150-450) Mean Platelet Volume 5.9 FL (6.5-10.1) L Neutrophils (%) (Auto) % (45.0-75.0) Lymphocytes (%) (Auto) % (20.0-45.0) Monocytes (%) (Auto) % (1.0-10.0) Eosinophils (%) (Auto) % (0.0-3.0) Basophils (%) (Auto) % (0.0-2.0) Differential Total Cells Counted 100 Neutrophils % (Manual) 92 % (45-75) H Lymphocytes % (Manual) 7 % (20-45) L Monocytes % (Manual) 0 % (1-10) L Eosinophils % (Manual) 0 % (0-3) Basophils % (Manual) 1 % (0-2) Band Neutrophils 0 % (0-8) Nucleated Red Blood Cells 1 /100 WBC Platelet Estimate Adequate Platelet Morphology Normal Hypochromasia 2+ Sodium Level 147 MMOL/L (136-145) H Potassium Level 3.9 MMOL/L (3.5-5.1) Chloride Level 114 MMOL/L (98-107) H Carbon Dioxide Level 27 MMOL/L (21-32) Anion Gap 6 mmol/L (5-15) Blood Urea Nitrogen 20 mg/dL (7-18) H Creatinine 0.7 MG/DL (0.55-1.30) Estimat Glomerular Filtration Rate > 60 mL/min (>60) Glucose Level 110 MG/DL (74-106) H Calcium Level 7.9 MG/DL (8.5-10.1) L Total Bilirubin 0.6 MG/DL (0.2-1.0) Aspartate Amino Transf (AST/SGOT) 31 U/L (15-37) Alanine Aminotransferase (ALT/SGPT) 29 U/L (12-78) Alkaline Phosphatase 55 U/L (46-116) Total Protein 5.5 G/DL (6.4-8.2) L Albumin 1.9 G/DL (3.4-5.0) L Globulin 3.6 g/dL Albumin/Globulin Ratio 0.5 (1.0-2.7) L Microbiology Date/Time Source Procedure Growth Status 08/04/20 05:50 Rectum - Final NO CARBAPENEM-RESISTANT ENTEROBACTERI... Complete 08/04/20 05:50 Rectum VRE Culture - Final NO VANCOMYCIN RESISTANT ENTEROCOCCUS ... Complete 08/04/20 05:50 Nasal Nares MRSA Culture - Final Staphylococcus Aureus - Mrsa Complete 08/03/20 19:41 Urine,Clean Catch Urine Culture - Final Mixed Gram Positive Organism Complete 08/03/20 19:08 Blood Blood Culture - Preliminary Staphylococcus Sp Coag Neg Resulted Intake and Output 08/05/20 08/06/20 19:00 07:00 Intake Total 4106.74602 ml 1708.01592 ml Output Total 2080 ml 1160 ml Balance 2026.39507 ml 548.53995 ml Intake Oral 20 ml IV Total 4086.00429 ml 1708.63336 ml Output Urine Total 2080 ml 1160 ml # Bowel Movements 7 3 Objective GENERAL: The patient is well-developed, well-nourished male, intubated, sedated. HEENT: pupil equal reactive to the light, ET tube in the mouth. NECK: Supple. No JVD. CHEST: mechanical breath sounds, decreased air in the bases, no wheezes. CARDIOVASCULAR: Regular rhythm and rate. S1-S2 are normal without murmurs, ABDOMEN: Soft, nontender, and nondistended. Positive bowel sounds. EXTREMITIES: Negative for clubbing, cyanosis, or edema. RECTAL/GENITAL: Not performed. NEUROLOGIC: limited secondary to patient's status, patient is intubated and sedated, moving extremities spontaneously. Assessment/Plan Assessment/Plan ASSESSMENT: This is an 79-year-old male with. 1. Acute Hypoxemic Respiratory failure-intubated 08/05/20 2. Right-sided pneumonia. 3. Hypertension. 4. Congestive heart failure. 5. Chronic obstructive pulmonary disease. 6. Anemia. 7. Cerebrovascular disease, status post cerebrovascular accident. 8. Peripheral vascular disease. 9. Gastroesophageal reflux disease. 10. Major depression. 11. Seizure disorder. 12. History of COVID-19 positive in February 2020. 13. Benign prostatic hypertrophy. TREATMENT: 1. Acute hypoxemic Respiratory failure/right-sided pneumonia. A pulmonary consultation has been obtained with Dr. Micha Schneider. 2. Hypertension. 3. Congestive heart failure. 4. Chronic obstructive pulmonary disease. Continue DuoNeb as above. 5. Anemia. 6. Cerebrovascular disease. 7. Peripheral vascular disease. 8. Gastroesophageal reflux disease. Continue famotidine as above. 9. Major depression. Seizure disorder. 10. COVID-19 positive, history in February 2020. 11. Benign prostatic hypertrophy. Continue Flomax as above. Follow-up with laboratory and cultures. Antibiotics: Vancomycin IV, cefepime IV, Flagyl IV, Penicillin allergy DVT treatment: Lovenox 60 mg subcu twice a day Solu-Medrol 40 mg IV every 6 CODE STATUS: Full code. follow-up with COVID-19 PCR test. Torres Saul MD Aug 06, 2020 14:32
[2020-08-06] MEDS: Norepinephrine 4mg/NS Premix 250 ML IV SCH (18:00)
--- NOTE | 2020-08-06 19:15 | NUR ---
NURSE NOTES: Received report from Grzegorz LEMON. patient in bed sedated -2 RASS score. Orally intubated fi02 80%. HOB elevated. Right Femoral TLC intact infusing Fentanyl 60mcg/hr, Versed 5mg/hr, D5 1/2 NS at 75cc/hr BP 86/56 Titrated Levophed to 10mcg/min. Temp 99.1 axillary. Butler intact draining. Patient PUI, airborne precaution maintained and observed. bed alarm on. bed lock and in low position. will continue plan of care.
--- NOTE | 2020-08-06 21:15 | NUR ---
NURSE NOTES: Patient in bed sedated -2 RASS score. Right Femoral TLC intact infusing Fentanyl 60mcg/hr, Versed 5mg/hr, D5 1/2 NS at 75cc/hr BP 118/69 Levophed to 10mcg/min. Turned and repositioned patient in bed. Butler intact draining. Patient PUI, airborne precaution maintained and observed. bed alarm on. bed lock and in low position. will continue plan of care.
[2020-08-06] MEDS: Vancomycin 1gm/D5W 275ml IVPB SCH ×2 (21:19)
[2020-08-06] MEDS ORDERED: Dyna-Hex 2% Top Sol 2oz TOPIC SCH (21:30)
[2020-08-07] VITALS (50 sets, daily range): BP systolic 78–156; BP diastolic 54–88
--- NOTE | 2020-08-07 | NUR ---
NURSE NOTES: Inserted OGt. Ordered stat KUB.
[2020-08-07] MEDS: D5 1/2NS 1,000 ML IV SCH ×3 (00:12→19:41)
[2020-08-07] MEDS: Norepinephrine 4mg/NS Premix 250 ML IV SCH ×2 (00:32→14:00)
--- NOTE | 2020-08-07 02:00 | NUR ---
NURSE NOTES: Bed bath given tolerated well.
[2020-08-07] MEDS: Versed 100mg/NS 200ml 200 ML IV PRN ×2 (02:59→22:51)
--- NOTE | 2020-08-07 04:00 | NUR ---
NURSE NOTES: Patient in bed sedated -2 RASS score. Right Femoral TLC intact infusing Fentanyl 60mcg/hr, Versed 5mg/hr, D5 1/2 NS at 75cc/hr BP 108/71 Levophed to 8mcg/min. Turned and repositioned patient in bed. Butler intact draining. Patient PUI, airborne precaution maintained and observed. bed alarm on. bed lock and in low position. will continue plan of care.
--- NOTE | 2020-08-07 04:59 | Diagnostic Imaging Report ---
EXAM: XR Abdomen, 2 Views CLINICAL HISTORY: LINE TECHNIQUE: Frontal view of the abdomen/pelvis with upright view of the abdomen. COMPARISON: No relevant prior studies available. FINDINGS: 2 views of the abdomen only show portions of the left side. The distal end of an enteric tube tip overlies region of the gastric antrum. The bowel gas pattern is unremarkable as seen. No dilation. There is hyperaeration of the visualized left lung. IMPRESSION: Limited study. Enteric tube in appropriate position.
[2020-08-07] MEDS: Solu-MEDROL 40mg Inj IVP SCH ×4 (05:10→22:57)
[2020-08-07 05:29] LABS: HEMATOCRIT 28.9 % (42.0-52.0); HEMOGLOBIN 8.7 G/DL (14.2-18.0); MEAN CORPUSCULAR VOLUME 90 FL (80-99); PLATELET COUNT 232 K/UL (150-450); WHITE BLOOD COUNT 9.9 K/UL (4.8-10.8)
[2020-08-07] MEDS ORDERED: Vancomycin 1gm vial IVPB ONE (05:34)
[2020-08-07] MEDS: Vancomycin 1gm/D5W 275ml IVPB SCH ×6 (05:56→21:00)
--- NOTE | 2020-08-07 06:00 | NUR ---
NURSE NOTES: KUB done impression enteric tube in appropriate position. OGT intact no residual, Started feeding Of Glucerna 1.5 at 10cc/hr goal 30cc/hr. HOB elevated. oral care provided. Patient sedated Rass score -2. frequent visual checks continued. will continue plan of care.
[2020-08-07 06:02] LABS: ALANINE AMINOTRANSFERASE 26 U/L (12-78); ALBUMIN 1.8 G/DL (3.4-5.0); ALBUMIN/GLOBULIN RATIO 0.5 (1.0-2.7); ALKALINE PHOSPHATASE 56 U/L (46-116); ANION GAP 6 mmol/L (5-15); ASPARTATE AMINO TRANSFERASE 25 U/L (15-37); BILIRUBIN,TOTAL 0.5 MG/DL (0.2-1.0); BLOOD UREA NITROGEN 17 mg/dL (7-18); CALCIUM 7.8 MG/DL (8.5-10.1); CARBON DIOXIDE 29 MMOL/L (21-32); CHLORIDE 111 MMOL/L (98-107); CHOLESTEROL 93 MG/DL (< 200); CREATININE 0.7 MG/DL (0.55-1.30); FERRITIN 177 NG/ML (8-388); GAMMA GLUTAMYL TRANSPEPTIDASE 27 U/L (5-85); HDL CHOLESTEROL 30 MG/DL (40-60); PHOSPHORUS 1.4 MG/DL (2.5-4.9); POTASSIUM 3.5 MMOL/L (3.5-5.1); SODIUM 146 MMOL/L (136-145); TRIGLYCERIDES 80 MG/DL (30-150)
[2020-08-07 06:28] LABS: % IRON SATURATION 9 % (15-50); IRON 19 ug/dL (50-175); TOTAL IRON BINDING CAPACITY 207 ug/dL (250-450)
--- NOTE | 2020-08-07 07:08 | NUR ---
NURSE HAND-OFF REPORT: Latest Vital Signs: Temperature 97.7 , Pulse 74 , B/P 75779 , Respiratory Rate 16 , O2 SAT 97 , Mechanical Ventilator, O2 Flow Rate . Vital Sign Comment: EKG Rhythm: Sinus Rhythm Rhythm change?: N MD Notified?: - MD Response: Latest Castro Fall Score: 50 Fall Risk: High Risk Safety Measures: Call light Within Reach, Bed Alarm Zone 2, Side Rails Side Rails x2, Bed position Low and Locked. Fall Precautions: Yellow Socks Yellow Gown Door Sign Patient Fall Education Report given to Grzegorz LEMON. titrated Levophed to 6mcg Bp 140/88 .
--- NOTE | 2020-08-07 07:15 | NUR ---
RESPIRATORY NOTE: PT received on mechanical ventilation with current settings: AC/VC 16, 500,80%, +5. Airway is secure and patent. Vent circuit is secure and out of the way. Alarms are on and audible. No s/s of respiratory distress noted at this time. Will continue to closely monitor. Combivent was non-admitted by Grzegorz LEMON due to the need to disconnect the PT's circuit in order to administer. PT is PUI. RN will notify MD and see if medication can be d/c or changed.
--- NOTE | 2020-08-07 08:34 | Nephrology Progress Note ---
Assessment/Plan Problem List: (1) Oliguria (2) Electrolyte imbalance (3) Pneumonia (4) Respiratory failure with hypoxia (5) Pneumonia due to COVID-19 virus (6) Seizure disorder (7) Anemia Assessment Sepsis, respiratory failure Pneumonia and possible aspiration. Questionable COVID-19 infection UTI Abnormal electrolytes Questionable CHF Anemia Plan August 07: Labs reviewed. K Phos IV given. Patient intubated. Full code. FiO2 60%. Medication list reviewed. Continue per consultants. Previously: Optimize pulmonary status Optimize cardiac status Monitor renal parameters, urine output, electrolytes Change IV to half-normal saline Anemia mansfield Insert NG tube and start feeding Per orders Subjective ROS Limited/Unobtainable: Yes Objective Objective Last 24 Hour Vital Signs Date Time Temp Pulse Resp B/P (MAP) Pulse Ox O2 Delivery O2 Flow Rate FiO2 08/07/20 07:00 16 140/80 Mechanical Ventilator 80 08/07/20 07:00 16 140/80 Mechanical Ventilator 80 08/07/20 07:00 71 16 140/88 (105) 98 08/07/20 06:00 78 16 123/81 (95) 97 08/07/20 06:00 16 123/81 Mechanical Ventilator 80 08/07/20 06:00 16 123/81 Mechanical Ventilator 80 08/07/20 05:00 76 16 112/74 (87) 95 08/07/20 05:00 16 118/80 Mechanical Ventilator 80 08/07/20 05:00 16 118/80 Mechanical Ventilator 80 08/07/20 04:15 80 15 108/71 (83) 94 08/07/20 04:00 80 08/07/20 04:00 16 108/71 Mechanical Ventilator 80 08/07/20 04:00 16 108/71 Mechanical Ventilator 80 08/07/20 04:00 98.9 78 16 115/79 (91) 95 08/07/20 04:00 Mechanical Ventilator 08/07/20 04:00 79 08/07/20 03:45 78 16 113/77 (89) 99 08/07/20 03:30 79 16 111/77 (88) 99 08/07/20 03:15 85 16 80 08/07/20 03:00 16 124/82 Mechanical Ventilator 80 08/07/20 03:00 16 124/82 Mechanical Ventilator 80 08/07/20 03:00 73 16 126/79 (95) 100 08/07/20 02:59 16 140/79 Mechanical Ventilator 10.0 80 08/07/20 02:58 16 140/79 Mechanical Ventilator 80 08/07/20 02:30 72 16 128/77 (94) 100 08/07/20 02:00 76 16 117/70 (86) 100 08/07/20 02:00 16 132/79 Mechanical Ventilator 80 08/07/20 02:00 16 132/79 Mechanical Ventilator 80 08/07/20 01:15 77 16 140/79 (99) 100 08/07/20 01:00 83 16 131/81 (98) 99 08/07/20 01:00 16 130/60 Mechanical Ventilator 80 08/07/20 01:00 16 130/60 Mechanical Ventilator 80 08/07/20 00:45 84 18 114/70 (85) 97 08/07/20 00:32 116/70 08/07/20 00:30 83 9 116/75 (89) 99 08/07/20 00:15 88 15 114/73 (87) 98 08/07/20 00:00 87 08/07/20 00:00 Mechanical Ventilator 08/07/20 00:00 80 08/07/20 00:00 99.0 91 16 121/70 (87) 99 08/07/20 00:00 16 120/70 Mechanical Ventilator 80 08/07/20 00:00 16 121/70 Mechanical Ventilator 80 08/06/20 23:20 85 16 80 08/06/20 23:00 86 16 106/74 (85) 96 08/06/20 23:00 16 106/74 Mechanical Ventilator 80 08/06/20 23:00 16 106/74 Mechanical Ventilator 80 08/06/20 22:00 87 16 129/71 (90) 94 08/06/20 22:00 16 120/72 Mechanical Ventilator 80 08/06/20 22:00 16 120/72 Mechanical Ventilator 80 08/06/20 21:00 87 16 109/75 (86) 100 08/06/20 21:00 16 115/76 Mechanical Ventilator 80 08/06/20 21:00 16 115/76 Mechanical Ventilator 80 08/06/20 20:30 87 16 117/73 (88) 94 08/06/20 20:15 89 16 110/70 (83) 93 08/06/20 20:00 95 2/18/21 20:00 80 08/06/20 20:00 Mechanical Ventilator 08/06/20 20:00 16 110/70 Mechanical Ventilator 80 08/06/20 20:00 16 110/70 Mechanical Ventilator 80 08/06/20 20:00 99.1 89 16 102/68 (79) 94 08/06/20 19:45 90 16 103/62 (76) 97 08/06/20 19:30 92 16 107/61 (76) 100 08/06/20 19:24 95 16 105/62 (76) 98 08/06/20 19:20 101 16 80 08/06/20 19:15 101 15 86/56 (66) 96 08/06/20 19:00 22 86/56 Mechanical Ventilator 80 08/06/20 19:00 16 86/56 Mechanical Ventilator 80 08/06/20 19:00 101 16 91/63 (72) 91 08/06/20 18:00 63/40 08/06/20 18:00 106 20 110/77 (88) 93 08/06/20 17:30 106 20 110/77 (88) 93 08/06/20 17:15 106 22 123/78 (93) 91 08/06/20 17:00 111 23 116/79 (91) 93 08/06/20 16:45 110 23 113/78 (90) 90 08/06/20 16:30 112 19 126/74 (91) 90 08/06/20 16:15 109 28 119/71 (87) 89 08/06/20 16:00 100 08/06/20 16:00 106 27 102/73 (83) 89 08/06/20 16:00 107 08/06/20 15:36 108 16 80 08/06/20 15:15 108 27 103/73 (83) 87 08/06/20 15:00 108 31 106/83 (91) 92 08/06/20 14:45 106 29 101/67 (78) 90 08/06/20 14:30 105 29 104/70 (81) 94 08/06/20 14:15 109 19 82/63 (69) 96 08/06/20 14:00 106 16 97/58 (71) 96 08/06/20 13:45 104 26 91/74 (80) 92 21 13:45 104 26 91/74 (80) 92 2/18/21 13:30 102 16 92/61 (71) 93 2/18/21 13:30 102 16 92/61 (71) 93 218/21 13:15 102 16 91/59 (70) 93 218/21 13:15 102 16 91/59 (70) 93 218/21 13:00 105 15 95/59 (71) 90 218/21 13:00 105 15 95/59 (71) 90 21 12:45 100 22 99/71 (80) 93 21 12:37 102 22 109/67 (81) 90 08/06/20 12:30 98 24 89 08/06/20 12:15 95 16 93 08/06/20 12:15 95 16 93 08/06/20 12:00 87 16 98 08/06/20 12:00 87 16 98 08/06/20 12:00 87 16 105/83 (90) 98 08/06/20 12:00 100 08/06/20 12:00 95 08/06/20 11:25 77 16 80 08/06/20 11:15 67 16 135/74 (94) 99 21 11:15 67 16 135/74 (94) 99 08/06/21 11:15 67 16 135/74 (94) 99 18/21 11:15 67 16 135/74 (94) 99 18/21 11:00 92 16 78/53 (61) 98 21 11:00 92 16 78/53 (61) 98 21 11:00 92 16 78/53 (61) 98 1821 11:00 92 16 78/53 (61) 98 18/21 10:45 89 16 79/47 (58) 97 21 10:45 89 16 79/47 (58) 97 08/06/20 10:45 89 16 79/47 (58) 97 08/06/20 10:30 88 16 71/50 (57) 96 18/21 10:30 88 16 71/50 (57) 96 21 10:30 88 16 71/50 (57) 96 21 10:15 81 16 63/39 (47) 92 2/18/21 10:15 81 16 63/39 (47) 92 08/06/20 10:15 81 16 63/39 (47) 92 08/06/20 10:00 77 16 124/74 (91) 97 08/06/20 10:00 77 16 124/74 (91) 97 08/06/20 10:00 77 16 124/74 (91) 97 08/06/20 10:00 77 16 124/74 (91) 97 08/06/20 09:45 78 16 121/74 (90) 97 08/06/20 09:30 78 16 119/73 (88) 97 08/06/20 09:15 79 16 121/74 (90) 97 08/06/20 09:00 16 121/67 08/06/20 09:00 79 16 120/67 (84) 97 Intake and Output 08/06/20 08/07/20 19:00 07:00 Intake Total 337.5 ml 2450.333 ml Output Total 1200 ml 590 ml Balance -862.5 ml 1860.333 ml Free Water 50 ml IV Total 337.5 ml 2380.333 ml Tube Feeding 20 ml Output Urine Total 1200 ml 590 ml Current Medications Medications (Trade) Dose Ordered Sig/Armand Route PRN Reason Start Time Stop Time Status Last Admin Dose Admin Albuterol/ Ipratropium (Combivent Respimat) 1 puff Q4H PRN INH Shortness of Breath 08/04/20 10:00 09/03/20 09:59 Albuterol/ Ipratropium (Combivent Respimat) 1 puff Q8HR INH 08/04/20 09:30 09/03/20 09:29 08/06/20 14:00 Cefepime HCl 2 gm/ Dextrose 110 ml @ 220 mls/hr EVERY 12 HOURS IV 08/05/20 21:00 08/12/20 20:59 08/07/20 09:00 Chlorhexidine Gluconate (Maddie-Hex 2%) 1 applic DAILY@2000 TOPIC 08/07/20 20:00 11/05/20 19:59 Dextrose/Sodium Chloride 1,000 ml @ 75 mls/hr [id number] IV 08/06/20 11:00 09/05/20 10:59 08/07/20 00:12 Enoxaparin Sodium (Lovenox) 60 mg EVERY 12 HOURS SUBQ 08/05/20 21:00 11/03/20 20:59 08/07/20 09:00 Famotidine (Pepcid I.v.) 20 mg Q12HR IVP 08/06/20 11:00 09/05/20 10:59 08/07/20 09:00 Fentanyl Citrate 250 ml @ 1 mls/hr Q24H IV 08/05/20 15:30 08/07/20 15:29 08/06/20 09:00 Gabapentin (Neurontin) 300 mg TID NG 08/05/20 09:00 09/04/20 08:59 08/07/20 09:00 Lorazepam (Ativan 2mg/ml 1ml) 0.5 mg Q6H PRN IV For Anxiety 08/04/20 21:30 08/11/20 21:29 Methylprednisolone Sodium Succinate (Solu-MEDROL) 40 mg EVERY 6 HOURS IVP 08/05/20 12:00 11/03/20 11:59 08/07/20 05:10 Metronidazole 100 ml @ 100 mls/hr Q8HR IVPB 08/04/20 14:00 08/11/20 13:59 08/07/20 05:10 Midazolam HCl 200 ml @ 0 mls/hr Q24H PRN IV To Patient Comfort 08/05/20 15:30 08/12/20 15:29 08/07/20 02:59 Norepinephrine Bitartrate 250 ml @ 0 mls/hr Q24H IV 08/05/20 17:45 08/08/20 17:32 08/07/20 00:32 Potassium Phosphate 250 ml @ 62.5 mls/hr Q4H IVPB 08/07/20 09:30 08/07/20 17:29 08/07/20 09:30 Vancomycin HCl (Vanco pharmacy to dose) 1 ea DAILY PRN MISC Per rx protocol 08/04/20 09:15 09/03/20 09:14 Vancomycin HCl 1 gm/Dextrose 275 ml @ 183.708 mls/hr Q8H IVPB 08/06/20 21:00 08/11/20 20:59 08/07/20 05:56 Laboratory Tests 08/06/20 15:25: Vancomycin Level Trough 6.1 08/07/20 04:25: White Blood Count 9.9, Red Blood Count 3.20L, Hemoglobin 8.7L, Hematocrit 28.9L, Mean Corpuscular Volume 90, Mean Corpuscular Hemoglobin 27.3, Mean Corpuscular Hemoglobin Concent 30.2L, Red Cell Distribution Width 14.0, Platelet Count 232, Mean Platelet Volume 5.5L, Neutrophils (%) (Auto) , Lymphocytes (%) (Auto) , Monocytes (%) (Auto) , Eosinophils (%) (Auto) , Basophils (%) (Auto) , Differential Total Cells Counted 100, Neutrophils % (Manual) 89H, Lymphocytes % (Manual) 1L, Monocytes % (Manual) 4, Eosinophils % (Manual) 0, Basophils % (Manual) 0, Band Neutrophils 6, Platelet Estimate Adequate, Platelet Morphology Normal, Hypochromasia 1+, Anisocytosis 1+, Sodium Level 146H, Potassium Level 3.5, Chloride Level 111H, Carbon Dioxide Level 29, Anion Gap 6, Blood Urea Nitrogen 17, Creatinine 0.7, Estimat Glomerular Filtration Rate > 60, Glucose Level 178H, Hemoglobin A1c 6.1H, Uric Acid 4.0, Calcium Level 7.8L, Phosphorus Level 1.4L, Magnesium Level 2.0, Iron Level 19L, Total Iron Binding Capacity 207L, Percent Iron Saturation 9L, Unsaturated Iron Binding 188, Ferritin 177, Total Bilirubin 0.5, Gamma Glutamyl Transpeptidase 27, Aspartate Amino Transf (AST/SGOT) 25, Alanine Aminotransferase (ALT/SGPT) 26, Alkaline Phosphatase 56, C-Reactive Protein, Quantitative 30.6H, Pro-B-Type Natriuretic Peptide 213H, Total Protein 5.6L, Albumin 1.8L, Globulin 3.8, Albumin/Globulin Ratio 0.5L, Triglycerides Level 80, Cholesterol Level 93, LDL Cholesterol 42, HDL Cholesterol 30L, Cholesterol/HDL Ratio 3.1L, Vitamin B12 Level 907, Vitamin D 25-Hydroxy [Pending], 25-Hydroxy Vitamin D2 [Pending], 25-Hydroxy Vitamin D3 [Pe nding], Folate 16.1, Thyroid Stimulating Hormone (TSH) 0.605 Height (Feet): 6 Height (Inches): 1.00 Weight (Pounds): 190 General Appearance: no apparent distress EENT: other - Intubated on ventilator Cardiovascular: normal rate Respiratory/Chest: decreased breath sounds Abdomen: distended Aashish Burgess MDb 19, 2021 08:34
[2020-08-07] MEDS: Cefepime 2gm/D5W 110ml IV SCH ×4 (09:00→21:15)
[2020-08-07] MEDS: Enoxaparin 60mg Inj SUBQ SCH ×2 (09:00→20:42)
[2020-08-07] MEDS: Gabapentin 300 MG/6 ML Soln NG SCH ×3 (09:00→18:18)
--- NOTE | 2020-08-07 09:04 | NUR ---
RESPIRATORY NOTE: FIO2 decreased form 80 to 70%. Pt tolerating well. ALL VS are WNL. Grzegorz LEMON. notified. Will continue to monitor.
[2020-08-07] MEDS: Potassium Phosphate 15mm/250ml 250 ML IVPB SCH ×2 (09:30→13:30)
--- NOTE | 2020-08-07 10:27 | Pulmonology Progress Note ---
Subjective ROS Limited/Unobtainable: Yes Interval Events: Intubated 08/05/20 Constitutional: Reports: no symptoms HEENT: Repors: no symptoms Respiratory: Reports: shortness of breath Cardiovascular: Reports: no symptoms Gastrointestinal/Abdominal: Reports: no symptoms Genitourinary: Reports: no symptoms Neurologic: Reports: no symptoms Allergies: Coded Allergies: PENICILLINS (Verified Allergy, Unknown, 03/10/20) PHENYTOIN (Verified Allergy, Unknown, 03/10/20) Objective Last 24 Hour Vital Signs Date Time Temp Pulse Resp B/P (MAP) Pulse Ox O2 Delivery O2 Flow Rate FiO2 08/07/20 08:00 79 08/07/20 08:00 Mechanical Ventilator 08/07/20 08:00 80 08/07/20 08:00 71 16 140/88 (105) 98 08/07/20 07:00 16 140/80 Mechanical Ventilator 80 08/07/20 07:00 16 140/80 Mechanical Ventilator 80 08/07/20 07:00 71 16 140/88 (105) 98 08/07/20 06:00 78 16 123/81 (95) 97 08/07/20 06:00 16 123/81 Mechanical Ventilator 80 08/07/20 06:00 16 123/81 Mechanical Ventilator 80 08/07/20 05:00 76 16 112/74 (87) 95 08/07/20 05:00 16 118/80 Mechanical Ventilator 80 08/07/20 05:00 16 118/80 Mechanical Ventilator 80 08/07/20 04:15 80 15 108/71 (83) 94 08/07/20 04:00 80 08/07/20 04:00 16 108/71 Mechanical Ventilator 80 08/07/20 04:00 16 108/71 Mechanical Ventilator 80 08/07/20 04:00 98.9 78 16 115/79 (91) 95 08/07/20 04:00 Mechanical Ventilator 08/07/20 04:00 79 08/07/20 03:45 78 16 113/77 (89) 99 08/07/20 03:30 79 16 111/77 (88) 99 08/07/20 03:15 85 16 80 08/07/20 03:00 16 124/82 Mechanical Ventilator 80 08/07/20 03:00 16 124/82 Mechanical Ventilator 80 08/07/20 03:00 73 16 126/79 (95) 100 08/07/20 02:59 16 140/79 Mechanical Ventilator 10.0 80 08/07/20 02:58 16 140/79 Mechanical Ventilator 80 08/07/20 02:30 72 16 128/77 (94) 100 08/07/20 02:00 76 16 117/70 (86) 100 08/07/20 02:00 16 132/79 Mechanical Ventilator 80 08/07/20 02:00 16 132/79 Mechanical Ventilator 80 08/07/20 01:15 77 16 140/79 (99) 100 08/07/20 01:00 83 16 131/81 (98) 99 08/07/20 01:00 16 130/60 Mechanical Ventilator 80 08/07/20 01:00 16 130/60 Mechanical Ventilator 80 08/07/20 00:45 84 18 114/70 (85) 97 08/07/20 00:32 116/70 08/07/20 00:30 83 9 116/75 (89) 99 08/07/20 00:15 88 15 114/73 (87) 98 08/07/20 00:00 87 08/07/20 00:00 Mechanical Ventilator 08/07/20 00:00 80 08/07/20 00:00 99.0 91 16 121/70 (87) 99 08/07/20 00:00 16 120/70 Mechanical Ventilator 80 08/07/20 00:00 16 121/70 Mechanical Ventilator 80 08/06/20 23:20 85 16 80 08/06/20 23:00 86 16 106/74 (85) 96 08/06/20 23:00 16 106/74 Mechanical Ventilator 80 08/06/20 23:00 16 106/74 Mechanical Ventilator 80 08/06/20 22:00 87 16 129/71 (90) 94 08/06/20 22:00 16 120/72 Mechanical Ventilator 80 08/06/20 22:00 16 120/72 Mechanical Ventilator 80 08/06/20 21:00 87 16 109/75 (86) 100 08/06/20 21:00 16 115/76 Mechanical Ventilator 80 08/06/20 21:00 16 115/76 Mechanical Ventilator 80 08/06/20 20:30 87 16 117/73 (88) 94 08/06/20 20:15 89 16 110/70 (83) 93 08/06/20 20:00 95 2/18/21 20:00 80 08/06/20 20:00 Mechanical Ventilator 08/06/20 20:00 16 110/70 Mechanical Ventilator 80 21 20:00 16 110/70 Mechanical Ventilator 80 08/06/20 20:00 99.1 89 16 102/68 (79) 94 08/06/20 19:45 90 16 103/62 (76) 97 1821 19:30 92 16 107/61 (76) 100 21 19:24 95 16 105/62 (76) 98 1821 19:20 101 16 80 08/06/20 19:15 101 15 86/56 (66) 96 08/06/20 19:00 22 86/56 Mechanical Ventilator 80 08/06/20 19:00 16 86/56 Mechanical Ventilator 80 08/06/20 19:00 101 16 91/63 (72) 91 08/06/20 18:00 63/40 08/06/20 18:00 106 20 110/77 (88) 93 08/06/20 17:30 106 20 110/77 (88) 93 08/06/20 17:15 106 22 123/78 (93) 91 08/06/20 17:00 111 23 116/79 (91) 93 08/06/20 16:45 110 23 113/78 (90) 90 08/06/20 16:30 112 19 126/74 (91) 90 08/06/20 16:15 109 28 119/71 (87) 89 21 16:00 100 08/06/20 16:00 106 27 102/73 (83) 89 21 16:00 107 08/06/20 15:36 108 16 80 1821 15:15 108 27 103/73 (83) 87 21 15:00 108 31 106/83 (91) 92 08/06/20 14:45 106 29 101/67 (78) 90 21 14:30 105 29 104/70 (81) 94 21 14:15 109 19 82/63 (69) 96 08/06/20 14:00 106 16 97/58 (71) 96 08/06/20 13:45 104 26 91/74 (80) 92 21 13:45 104 26 91/74 (80) 92 2/18/21 13:30 102 16 92/61 (71) 93 21 13:30 102 16 92/61 (71) 93 21 13:15 102 16 91/59 (70) 93 08/06/20 13:15 102 16 91/59 (70) 93 08/06/20 13:00 105 15 95/59 (71) 90 08/06/20 13:00 105 15 95/59 (71) 90 08/06/20 12:45 100 22 99/71 (80) 93 08/06/20 12:37 102 22 109/67 (81) 90 08/06/20 12:30 98 24 89 08/06/20 12:15 95 16 93 08/06/20 12:15 95 16 93 08/06/20 12:00 87 16 98 08/06/20 12:00 87 16 98 08/06/20 12:00 87 16 105/83 (90) 98 08/06/20 12:00 100 08/06/20 12:00 95 08/06/20 11:25 77 16 80 08/06/20 11:15 67 16 135/74 (94) 99 08/06/20 11:15 67 16 135/74 (94) 99 08/06/20 11:15 67 16 135/74 (94) 99 08/06/20 11:15 67 16 135/74 (94) 99 08/06/20 11:00 92 16 78/53 (61) 98 08/06/20 11:00 92 16 78/53 (61) 98 08/06/20 11:00 92 16 78/53 (61) 98 08/06/20 11:00 92 16 78/53 (61) 98 08/06/20 10:45 89 16 79/47 (58) 97 08/06/20 10:45 89 16 79/47 (58) 97 08/06/20 10:45 89 16 79/47 (58) 97 08/06/20 10:30 88 16 71/50 (57) 96 08/06/20 10:30 88 16 71/50 (57) 96 08/06/20 10:30 88 16 71/50 (57) 96 Intake and Output 08/06/20 08/07/20 19:00 07:00 Intake Total 337.5 ml 2450.333 ml Output Total 1200 ml 590 ml Balance -862.5 ml 1860.333 ml Free Water 50 ml IV Total 337.5 ml 2380.333 ml Tube Feeding 20 ml Output Urine Total 1200 ml 590 ml General Appearance: no acute distress HEENT: normocephalic Respiratory: chest wall non-tender, lungs clear Cardiovascular: normal peripheral pulses, normal rate Abdomen: normal bowel sounds Extremities: no cyanosis Laboratory Tests 08/06/20 15:25: Vancomycin Level Trough 6.1 08/07/20 04:25: White Blood Count 9.9, Red Blood Count 3.20L, Hemoglobin 8.7L, Hematocrit 28.9L, Mean Corpuscular Volume 90, Mean Corpuscular Hemoglobin 27.3, Mean Corpuscular Hemoglobin Concent 30.2L, Red Cell Distribution Width 14.0, Platelet Count 232, Mean Platelet Volume 5.5L, Neutrophils (%) (Auto) , Lymphocytes (%) (Auto) , Monocytes (%) (Auto) , Eosinophils (%) (Auto) , Basophils (%) (Auto) , Dif ferential Total Cells Counted 100, Neutrophils % (Manual) 89H, Lymphocytes % (Manual) 1L, Monocytes % (Manual) 4, Eosinophils % (Manual) 0, Basophils % (Manual) 0, Band Neutrophils 6, Platelet Estimate Adequate, Platelet Morphology Normal, Hypochromasia 1+, Anisocytosis 1+, Sodium Level 146H, Potassium Level 3.5, Chloride Level 111H, Carbon Dioxide Level 29, Anion Gap 6, Blood Urea Nitrogen 17, Creatinine 0.7, Estimat Glomerular Filtration Rate > 60, Glucose Level 178H, Hemoglobin A1c 6.1H, Uric Acid 4.0, Calcium Level 7.8L, Phosphorus Level 1.4L, Magnesium Level 2.0, Iron Level 19L, Total Iron Binding Capacity 207L, Percent Iron Saturation 9L, Unsaturated Iron Binding 188, Ferritin 177, Total Bilirubin 0.5, Gamma Glutamyl Transpeptidase 27, Aspartate Amino Transf (AST/SGOT) 25, Alanine Aminotransferase (ALT/SGPT) 26, Alkaline Phosphatase 56, C-Reactive Protein, Quantitative 30.6H, Pro-B-Type Natriuretic Peptide 213H, Total Protein 5.6L, Albumin 1.8L, Globulin 3.8, Albumin/Globulin Ratio 0.5L, Triglycerides Level 80, Cholesterol Level 93, LDL Cholesterol 42, HDL Cholesterol 30L, Cholesterol/HDL Ratio 3.1L, Vitamin B12 Level 907, Vitamin D 2 5-Hydroxy [Pending], 25-Hydroxy Vitamin D2 [Pending], 25-Hydroxy Vitamin D3 [Pending], Folate 16.1, Thyroid Stimulating Hormone (TSH) 0.605 Current Medications Medications (Trade) Dose Ordered Sig/Armand Route PRN Reason Start Time Stop Time Status Last Admin Dose Admin Albuterol/ Ipratropium (Combivent Respimat) 1 puff Q4H PRN INH Shortness of Breath 08/04/20 10:00 09/03/20 09:59 Albuterol/ Ipratropium (Combivent Respimat) 1 puff Q8HR INH 08/04/20 09:30 09/03/20 09:29 08/06/20 14:00 Cefepime HCl 2 gm/ Dextrose 110 ml @ 220 mls/hr EVERY 12 HOURS IV 08/05/20 21:00 08/12/20 20:59 08/07/20 09:00 Chlorhexidine Gluconate (Maddie-Hex 2%) 1 applic DAILY@2000 TOPIC 08/07/20 20:00 11/05/20 19:59 Dextrose/Sodium Chloride 1,000 ml @ 75 mls/hr [id number] IV 08/06/20 11:00 09/05/20 10:59 08/07/20 00:12 Enoxaparin Sodium (Lovenox) 60 mg EVERY 12 HOURS SUBQ 08/05/20 21:00 11/03/20 20:59 08/07/20 09:00 Famotidine (Pepcid I.v.) 20 mg Q12HR IVP 08/06/20 11:00 09/05/20 10:59 08/07/20 09:00 Fentanyl Citrate 250 ml @ 1 mls/hr Q24H IV 08/05/20 15:30 08/07/20 15:29 08/06/20 09:00 Gabapentin (Neurontin) 300 mg TID NG 08/05/20 09:00 09/04/20 08:59 08/07/20 09:00 Lorazepam (Ativan 2mg/ml 1ml) 0.5 mg Q6H PRN IV For Anxiety 08/04/20 21:30 08/11/20 21:29 Methylprednisolone Sodium Succinate (Solu-MEDROL) 40 mg EVERY 6 HOURS IVP 08/05/20 12:00 11/03/20 11:59 08/07/20 05:10 Metronidazole 100 ml @ 100 mls/hr Q8HR IVPB 08/04/20 14:00 08/11/20 13:59 08/07/20 05:10 Midazolam HCl 200 ml @ 0 mls/hr Q24H PRN IV To Patient Comfort 08/05/20 15:30 08/12/20 15:29 08/07/20 02:59 Norepinephrine Bitartrate 250 ml @ 0 mls/hr Q24H IV 08/05/20 17:45 08/08/20 17:32 08/07/20 00:32 Potassium Phosphate 250 ml @ 62.5 mls/hr Q4H IVPB 08/07/20 09:30 08/07/20 17:29 Vancomycin HCl (PCT [facility] pharmacy to dose) 1 ea DAILY PRN MISC Per rx protocol 08/04/20 09:15 09/03/20 09:14 Vancomycin HCl 1 gm/Dextrose 275 ml @ 183.708 mls/hr Q8H IVPB 08/06/20 21:00 08/11/20 20:59 08/07/20 05:56 Assessment/Plan Assessment/Plan 1. UTI -On empiric antibiotics -Follow-up UCx negative (08/03) 2. Pneumonia -On broad-spectrum antibiotics - CXR concerning for volume loss -> await CT chest 3. COPD exacerbation -Now intubated 4. Respiratory distress - Continue steroids 5. History of seizures -Risk of aspiration -Monitor for seizure activity 6. Elevated CRP -D-dimer wnl -His outpatient medications include Eliquis (hx of A fib?) - Continue Eliquis 7. Monitor carefully in ICU S/p intubation On Levophed Continue AC mode FiO2 90->80% PEEP 5 Micha Schneider MD Aug 07, 2020 10:27
--- NOTE | 2020-08-07 11:18 | NUR ---
RESPIRATORY NOTE: FIO2 decreased form 70 to 76%. Pt tolerating well. ALL VS are WNL. Grzegorz LEMON. notified. Will continue to monitor.
--- NOTE | 2020-08-07 12:46 | Surgery Progress Note ---
Surgery Progress Note Subjective Additional Comments ill appearing on support no n/v tolerating tf lab snoted exam stable Objective Last 24 Hour Vital Signs Date Time Temp Pulse Resp B/P (MAP) Pulse Ox O2 Delivery O2 Flow Rate FiO2 08/07/20 11:18 77 16 60 08/07/20 11:00 76 16 99/61 (74) 99 08/07/20 10:51 68 16 122/79 (93) 100 08/07/20 10:45 60 16 100 08/07/20 10:43 59 16 156/77 (103) 99 08/07/20 10:34 78 16 85/58 (67) 98 08/07/20 10:30 78 16 78/54 (62) 98 08/07/20 10:15 79 16 96 08/07/20 10:15 79 16 96 08/07/20 10:00 65 16 134/74 (94) 99 08/07/20 10:00 65 16 134/74 (94) 99 08/07/20 09:45 74 16 99 08/07/20 09:30 65 16 139/78 (98) 100 08/07/20 09:15 72 16 99 08/07/20 09:10 72 16 70 08/07/20 09:00 71 16 112/78 (89) 98 08/07/20 08:45 71 16 98 08/07/20 08:30 72 16 127/82 (97) 98 08/07/20 08:00 79 08/07/20 08:00 Mechanical Ventilator 08/07/20 08:00 80 08/07/20 08:00 71 16 140/88 (105) 98 08/07/20 07:15 70 16 80 08/07/20 07:00 16 140/80 Mechanical Ventilator 80 08/07/20 07:00 16 140/80 Mechanical Ventilator 80 08/07/20 07:00 71 16 140/88 (105) 98 08/07/20 06:00 78 16 123/81 (95) 97 08/07/20 06:00 16 123/81 Mechanical Ventilator 80 08/07/20 06:00 16 123/81 Mechanical Ventilator 80 08/07/20 05:00 76 16 112/74 (87) 95 08/07/20 05:00 16 118/80 Mechanical Ventilator 80 08/07/20 05:00 16 118/80 Mechanical Ventilator 80 08/07/20 04:15 80 15 108/71 (83) 94 08/07/20 04:00 80 08/07/20 04:00 16 108/71 Mechanical Ventilator 80 08/07/20 04:00 16 108/71 Mechanical Ventilator 80 08/07/20 04:00 98.9 78 16 115/79 (91) 95 08/07/20 04:00 Mechanical Ventilator 08/07/20 04:00 79 08/07/20 03:45 78 16 113/77 (89) 99 08/07/20 03:30 79 16 111/77 (88) 99 08/07/20 03:15 85 16 80 08/07/20 03:00 16 124/82 Mechanical Ventilator 80 08/07/20 03:00 16 124/82 Mechanical Ventilator 80 08/07/20 03:00 73 16 126/79 (95) 100 08/07/20 02:59 16 140/79 Mechanical Ventilator 10.0 80 08/07/20 02:58 16 140/79 Mechanical Ventilator 80 08/07/20 02:30 72 16 128/77 (94) 100 08/07/20 02:00 76 16 117/70 (86) 100 08/07/20 02:00 16 132/79 Mechanical Ventilator 80 08/07/20 02:00 16 132/79 Mechanical Ventilator 80 08/07/20 01:15 77 16 140/79 (99) 100 08/07/20 01:00 83 16 131/81 (98) 99 08/07/20 01:00 16 130/60 Mechanical Ventilator 80 08/07/20 01:00 16 130/60 Mechanical Ventilator 80 08/07/20 00:45 84 18 114/70 (85) 97 08/07/20 00:32 116/70 08/07/20 00:30 83 9 116/75 (89) 99 08/07/20 00:15 88 15 114/73 (87) 98 08/07/20 00:00 87 08/07/20 00:00 Mechanical Ventilator 08/07/20 00:00 80 08/07/20 00:00 99.0 91 16 121/70 (87) 99 08/07/20 00:00 16 120/70 Mechanical Ventilator 80 08/07/20 00:00 16 121/70 Mechanical Ventilator 80 08/06/20 23:20 85 16 80 08/06/20 23:00 86 16 106/74 (85) 96 08/06/20 23:00 16 106/74 Mechanical Ventilator 80 08/06/20 23:00 16 106/74 Mechanical Ventilator 80 08/06/20 22:00 87 16 129/71 (90) 94 21 22:00 16 120/72 Mechanical Ventilator 80 08/06/20 22:00 16 120/72 Mechanical Ventilator 80 08/06/20 21:00 87 16 109/75 (86) 100 08/06/20 21:00 16 115/76 Mechanical Ventilator 80 08/06/20 21:00 16 115/76 Mechanical Ventilator 80 08/06/20 20:30 87 16 117/73 (88) 94 08/06/20 20:15 89 16 110/70 (83) 93 08/06/20 20:00 95 08/06/20 20:00 80 08/06/20 20:00 Mechanical Ventilator 08/06/20 20:00 16 110/70 Mechanical Ventilator 80 08/06/20 20:00 16 110/70 Mechanical Ventilator 80 08/06/20 20:00 99.1 89 16 102/68 (79) 94 08/06/20 19:45 90 16 103/62 (76) 97 18 19:30 92 16 107/61 (76) 100 18 19:24 95 16 105/62 (76) 98 18 19:20 101 16 80 08/06/20 19:15 101 15 86/56 (66) 96 08/06/20 19:00 22 86/56 Mechanical Ventilator 80 08/06/20 19:00 16 86/56 Mechanical Ventilator 80 08/06/20 19:00 101 16 91/63 (72) 91 08/06/20 18:00 63/40 21 18:00 106 20 110/77 (88) 93 1821 17:30 106 20 110/77 (88) 93 18/21 17:15 106 22 123/78 (93) 91 18/21 17:00 111 23 116/79 (91) 93 21 16:45 110 23 113/78 (90) 90 08/06/20 16:30 112 19 126/74 (91) 90 21 16:15 109 28 119/71 (87) 89 08/06/20 16:00 100 08/06/20 16:00 106 27 102/73 (83) 89 08/06/20 16:00 107 08/06/20 15:36 108 16 80 08/06/20 15:15 108 27 103/73 (83) 87 08/06/20 15:00 108 31 106/83 (91) 92 08/06/20 14:45 106 29 101/67 (78) 90 08/06/20 14:30 105 29 104/70 (81) 94 08/06/20 14:15 109 19 82/63 (69) 96 08/06/20 14:00 106 16 97/58 (71) 96 08/06/20 13:45 104 26 91/74 (80) 92 08/06/20 13:45 104 26 91/74 (80) 92 08/06/20 13:30 102 16 92/61 (71) 93 08/06/20 13:30 102 16 92/61 (71) 93 08/06/20 13:15 102 16 91/59 (70) 93 08/06/20 13:15 102 16 91/59 (70) 93 08/06/20 13:00 105 15 95/59 (71) 90 08/06/20 13:00 105 15 95/59 (71) 90 I&O Intake and Output 08/06/20 08/07/20 19:00 07:00 Intake Total 337.5 ml 2450.333 ml Output Total 1200 ml 590 ml Balance -862.5 ml 1860.333 ml Free Water 50 ml IV Total 337.5 ml 2380.333 ml Tube Feeding 20 ml Output Urine Total 1200 ml 590 ml Dressing: saturated Cardiovascular: RSR Respiratory: decreased breath sounds Abdomen: soft, non-tender, present bowel sounds, non-distended Extremities: no tenderness, no cyanosis Laboratory Tests Test 08/06/20 15:25 08/07/20 04:25 Vancomycin Level Trough 6.1 ug/mL (5.0-12.0) White Blood Count 9.9 K/UL (4.8-10.8) Red Blood Count 3.20 M/UL (4.70-6.10) L Hemoglobin 8.7 G/DL (14.2-18.0) L Hematocrit 28.9 % (42.0-52.0) L Mean Corpuscular Volume 90 FL (80-99) Mean Corpuscular Hemoglobin 27.3 PG (27.0-31.0) Mean Corpuscular Hemoglobin Concent 30.2 G/DL (32.0-36.0) L Red Cell Distribution Width 14.0 % (11.6-14.8) Platelet Count 232 K/UL (150-450) Mean Platelet Volume 5.5 FL (6.5-10.1) L Neutrophils (%) (Auto) % (45.0-75.0) Lymphocytes (%) (Auto) % (20.0-45.0) Monocytes (%) (Auto) % (1.0-10.0) Eosinophils (%) (Auto) % (0.0-3.0) Basophils (%) (Auto) % (0.0-2.0) Differential Total Cells Counted 100 Neutrophils % (Manual) 89 % (45-75) H Lymphocytes % (Manual) 1 % (20-45) L Monocytes % (Manual) 4 % (1-10) Eosinophils % (Manual) 0 % (0-3) Basophils % (Manual) 0 % (0-2) Band Neutrophils 6 % (0-8) Platelet Estimate Adequate Platelet Morphology Normal Hypochromasia 1+ Anisocytosis 1+ Sodium Level 146 MMOL/L (136-145) H Potassium Level 3.5 MMOL/L (3.5-5.1) Chloride Level 111 MMOL/L (98-107) H Carbon Dioxide Level 29 MMOL/L (21-32) Anion Gap 6 mmol/L (5-15) Blood Urea Nitrogen 17 mg/dL (7-18) Creatinine 0.7 MG/DL (0.55-1.30) Estimat Glomerular Filtration Rate > 60 mL/min (>60) Glucose Level 178 MG/DL (74-106) H Hemoglobin A1c 6.1 % (4.3-6.0) H Uric Acid 4.0 MG/DL (2.6-7.2) Calcium Level 7.8 MG/DL (8.5-10.1) L Phosphorus Level 1.4 MG/DL (2.5-4.9) L Magnesium Level 2.0 MG/DL (1.8-2.4) Iron Level 19 ug/dL (50-175) L Total Iron Binding Capacity 207 ug/dL (250-450) L Percent Iron Saturation 9 % (15-50) L Unsaturated Iron Binding 188 ug/dL (112-346) Ferritin 177 NG/ML (8-388) Total Bilirubin 0.5 MG/DL (0.2-1.0) Gamma Glutamyl Transpeptidase 27 U/L (5-85) Aspartate Amino Transf (AST/SGOT) 25 U/L (15-37) Alanine Aminotransferase (ALT/SGPT) 26 U/L (12-78) Alkaline Phosphatase 56 U/L (46-116) C-Reactive Protein, Quantitative 30.6 mg/dL (0.00-0.90) H Pro-B-Type Natriuretic Peptide 213 pg/mL (0-125) H Total Protein 5.6 G/DL (6.4-8.2) L Albumin 1.8 G/DL (3.4-5.0) L Globulin 3.8 g/dL Albumin/Globulin Ratio 0.5 (1.0-2.7) L Triglycerides Level 80 MG/DL (30-150) Cholesterol Level 93 MG/DL (< 200) LDL Cholesterol 42 mg/dL (<100) HDL Cholesterol 30 MG/DL (40-60) L Cholesterol/HDL Ratio 3.1 (3.3-4.4) L Vitamin B12 Level 907 PG/ML (193-986) Vitamin D 25-Hydroxy Pending 25-Hydroxy Vitamin D2 Pending 25-Hydroxy Vitamin D3 Pending Folate 16.1 NG/ML (8.6-58.9) Thyroid Stimulating Hormone (TSH) 0.605 uiU/mL (0.358-3.740) Plan Problems: (1) Abdominal distension Assessment & Plan: 79M abdominal distention, respiratory decline, altered mental status. on exam noted abd soft, mild distended, non tender. no n/v/f/c. unlikely aspiration. non tender one exam. pending urine and covid test. no acute surgical intervention. hold on ct. kub ordered. will follow with exam and recs. keep npo for now. iv fluids. respiratory pulm support. will follow with recs thank you decline since admission now intubated ng tube to suction no acute surgical intervention cont abx kub noted wean vent enema when stable The rectum is considerably distended with stool. Considerable stool is also seen in the descending colon. The colon is diffusely gas filled, upper limits of normal in caliber. No significant small bowel gas demonstrated. No masses or unusual calcifications. The included lung bases demonstrate bilateral right greater than left pleural effusions. There is a Butler catheter Impression: Distended stool-filled rectum, fecal impaction possible Gas-filled upper limits of normal caliber colon, nonspecific Bilateral right greater than left pleural effusions (2) UTI (urinary tract infection) (3) Pneumonia (4) Multiple pulmonary nodules (5) Respiratory failure with hypoxia (6) Pneumonia due to COVID-19 virus (7) History of CVA (cerebrovascular accident) (8) COPD (chronic obstructive pulmonary disease) (9) HTN (hypertension) (10) Hx of prostatic malignancy (11) Major depression (12) Seizure disorder Destin Brown Aug 07, 2020 12:46
--- NOTE | 2020-08-07 13:52 | Cardiac Electrophysiology PN ---
Assessment/Plan Assessment/Plan 1. Respiratory failure. On the Vent and IV antibiotic. On 60% Fio2 Echocardiogram showed EF 50% 2. Questionable congestive heart failure. EF normal and BNP is only 39. 3. History of COVID pneumonia, status post vaccination for COVID. Currently on IV antibiotic and prednisone. 4. Questionable history of atrial fibrillation versus DVT. The patient is on Eliquis 2.5 mg b.i.d. Currently in SR Subjective Subjective Intubated and transferred to ICU on 80% Fio2 and PEEP 5 On Levo 4 mcg Fio2 decreased to 60% today Objective Last 24 Hour Vital Signs Date Time Temp Pulse Resp B/P (MAP) Pulse Ox O2 Delivery O2 Flow Rate FiO2 08/07/20 13:45 79 16 96 08/07/20 13:30 79 16 98/64 (75) 96 08/07/20 13:15 77 16 96 08/07/20 13:00 76 16 99/63 (75) 98 08/07/20 12:45 74 16 98 08/07/20 12:30 74 16 108/71 (83) 97 08/07/20 12:15 78 16 98 08/07/20 12:00 78 16 91/54 (66) 97 08/07/20 12:00 Mechanical Ventilator 08/07/20 11:45 77 16 97 08/07/20 11:30 75 16 101/65 (77) 98 08/07/20 11:18 77 16 60 08/07/20 11:15 77 16 99 08/07/20 11:00 76 16 99/61 (74) 99 08/07/20 11:00 76 16 99/61 (74) 99 08/07/20 10:51 68 16 122/79 (93) 100 08/07/20 10:45 60 16 100 08/07/20 10:43 59 16 156/77 (103) 99 08/07/20 10:34 78 16 85/58 (67) 98 08/07/20 10:30 78 16 78/54 (62) 98 08/07/20 10:15 79 16 96 08/07/20 10:15 79 16 96 08/07/20 10:00 65 16 134/74 (94) 99 08/07/20 10:00 65 16 134/74 (94) 99 08/07/20 09:45 74 16 99 08/07/20 09:30 65 16 139/78 (98) 100 08/07/20 09:15 72 16 99 08/07/20 09:10 72 16 70 08/07/20 09:00 71 16 112/78 (89) 98 08/07/20 08:45 71 16 98 08/07/20 08:30 72 16 127/82 (97) 98 08/07/20 08:00 79 08/07/20 08:00 Mechanical Ventilator 08/07/20 08:00 80 08/07/20 08:00 71 16 140/88 (105) 98 08/07/20 07:15 70 16 80 08/07/20 07:00 16 140/80 Mechanical Ventilator 80 08/07/20 07:00 16 140/80 Mechanical Ventilator 80 08/07/20 07:00 71 16 140/88 (105) 98 08/07/20 06:00 78 16 123/81 (95) 97 08/07/20 06:00 16 123/81 Mechanical Ventilator 80 08/07/20 06:00 16 123/81 Mechanical Ventilator 80 08/07/20 05:00 76 16 112/74 (87) 95 08/07/20 05:00 16 118/80 Mechanical Ventilator 80 08/07/20 05:00 16 118/80 Mechanical Ventilator 80 08/07/20 04:15 80 15 108/71 (83) 94 08/07/20 04:00 80 08/07/20 04:00 16 108/71 Mechanical Ventilator 80 08/07/20 04:00 16 108/71 Mechanical Ventilator 80 08/07/20 04:00 98.9 78 16 115/79 (91) 95 08/07/20 04:00 Mechanical Ventilator 08/07/20 04:00 79 08/07/20 03:45 78 16 113/77 (89) 99 08/07/20 03:30 79 16 111/77 (88) 99 08/07/20 03:15 85 16 80 08/07/20 03:00 16 124/82 Mechanical Ventilator 80 08/07/20 03:00 16 124/82 Mechanical Ventilator 80 08/07/20 03:00 73 16 126/79 (95) 100 08/07/20 02:59 16 140/79 Mechanical Ventilator 10.0 80 08/07/20 02:58 16 140/79 Mechanical Ventilator 80 08/07/20 02:30 72 16 128/77 (94) 100 08/07/20 02:00 76 16 117/70 (86) 100 08/07/20 02:00 16 132/79 Mechanical Ventilator 80 08/07/20 02:00 16 132/79 Mechanical Ventilator 80 08/07/20 01:15 77 16 140/79 (99) 100 08/07/20 01:00 83 16 131/81 (98) 99 08/07/20 01:00 16 130/60 Mechanical Ventilator 80 08/07/20 01:00 16 130/60 Mechanical Ventilator 80 08/07/20 00:45 84 18 114/70 (85) 97 08/07/20 00:32 116/70 08/07/20 00:30 83 9 116/75 (89) 99 08/07/20 00:15 88 15 114/73 (87) 98 08/07/20 00:00 87 08/07/20 00:00 Mechanical Ventilator 08/07/20 00:00 80 08/07/20 00:00 99.0 91 16 121/70 (87) 99 08/07/20 00:00 16 120/70 Mechanical Ventilator 80 08/07/20 00:00 16 121/70 Mechanical Ventilator 80 08/06/20 23:20 85 16 80 08/06/20 23:00 86 16 106/74 (85) 96 08/06/20 23:00 16 106/74 Mechanical Ventilator 80 08/06/20 23:00 16 106/74 Mechanical Ventilator 80 08/06/20 22:00 87 16 129/71 (90) 94 08/06/20 22:00 16 120/72 Mechanical Ventilator 80 08/06/20 22:00 16 120/72 Mechanical Ventilator 80 08/06/20 21:00 87 16 109/75 (86) 100 08/06/20 21:00 16 115/76 Mechanical Ventilator 80 08/06/20 21:00 16 115/76 Mechanical Ventilator 80 08/06/20 20:30 87 16 117/73 (88) 94 08/06/20 20:15 89 16 110/70 (83) 93 08/06/20 20:00 95 08/06/20 20:00 80 08/06/20 20:00 Mechanical Ventilator 08/06/20 20:00 16 110/70 Mechanical Ventilator 80 2/18/21 20:00 16 110/70 Mechanical Ventilator 80 08/06/20 20:00 99.1 89 16 102/68 (79) 94 08/06/20 19:45 90 16 103/62 (76) 97 08/06/20 19:30 92 16 107/61 (76) 100 08/06/20 19:24 95 16 105/62 (76) 98 08/06/20 19:20 101 16 80 08/06/20 19:15 101 15 86/56 (66) 96 08/06/20 19:00 22 86/56 Mechanical Ventilator 80 08/06/20 19:00 16 86/56 Mechanical Ventilator 80 08/06/20 19:00 101 16 91/63 (72) 91 08/06/20 18:00 63/40 08/06/20 18:00 106 20 110/77 (88) 93 08/06/20 17:30 106 20 110/77 (88) 93 08/06/20 17:15 106 22 123/78 (93) 91 08/06/20 17:00 111 23 116/79 (91) 93 08/06/20 16:45 110 23 113/78 (90) 90 08/06/20 16:30 112 19 126/74 (91) 90 08/06/20 16:15 109 28 119/71 (87) 89 08/06/20 16:00 100 08/06/20 16:00 106 27 102/73 (83) 89 08/06/20 16:00 107 08/06/20 15:36 108 16 80 08/06/20 15:15 108 27 103/73 (83) 87 08/06/20 15:00 108 31 106/83 (91) 92 08/06/20 14:45 106 29 101/67 (78) 90 08/06/20 14:30 105 29 104/70 (81) 94 08/06/20 14:15 109 19 82/63 (69) 96 08/06/20 14:00 106 16 97/58 (71) 96 Intake and Output 08/06/20 08/07/20 19:00 07:00 Intake Total 337.5 ml 2450.333 ml Output Total 1200 ml 590 ml Balance -862.5 ml 1860.333 ml Free Water 50 ml IV Total 337.5 ml 2380.333 ml Tube Feeding 20 ml Output Urine Total 1200 ml 590 ml Laboratory Tests Test 08/06/20 15:25 08/07/20 04:25 Vancomycin Level Trough 6.1 ug/mL (5.0-12.0) White Blood Count 9.9 K/UL (4.8-10.8) Red Blood Count 3.20 M/UL (4.70-6.10) L Hemoglobin 8.7 G/DL (14.2-18.0) L Hematocrit 28.9 % (42.0-52.0) L Mean Corpuscular Volume 90 FL (80-99) Mean Corpuscular Hemoglobin 27.3 PG (27.0-31.0) Mean Corpuscular Hemoglobin Concent 30.2 G/DL (32.0-36.0) L Red Cell Distribution Width 14.0 % (11.6-14.8) Platelet Count 232 K/UL (150-450) Mean Platelet Volume 5.5 FL (6.5-10.1) L Neutrophils (%) (Auto) % (45.0-75.0) Lymphocytes (%) (Auto) % (20.0-45.0) Monocytes (%) (Auto) % (1.0-10.0) Eosinophils (%) (Auto) % (0.0-3.0) Basophils (%) (Auto) % (0.0-2.0) Differential Total Cells Counted 100 Neutrophils % (Manual) 89 % (45-75) H Lymphocytes % (Manual) 1 % (20-45) L Monocytes % (Manual) 4 % (1-10) Eosinophils % (Manual) 0 % (0-3) Basophils % (Manual) 0 % (0-2) Band Neutrophils 6 % (0-8) Platelet Estimate Adequate Platelet Morphology Normal Hypochromasia 1+ Anisocytosis 1+ Sodium Level 146 MMOL/L (136-145) H Potassium Level 3.5 MMOL/L (3.5-5.1) Chloride Level 111 MMOL/L (98-107) H Carbon Dioxide Level 29 MMOL/L (21-32) Anion Gap 6 mmol/L (5-15) Blood Urea Nitrogen 17 mg/dL (7-18) Creatinine 0.7 MG/DL (0.55-1.30) Estimat Glomerular Filtration Rate > 60 mL/min (>60) Glucose Level 178 MG/DL (74-106) H Hemoglobin A1c 6.1 % (4.3-6.0) H Uric Acid 4.0 MG/DL (2.6-7.2) Calcium Level 7.8 MG/DL (8.5-10.1) L Phosphorus Level 1.4 MG/DL (2.5-4.9) L Magnesium Level 2.0 MG/DL (1.8-2.4) Iron Level 19 ug/dL (50-175) L Total Iron Binding Capacity 207 ug/dL (250-450) L Percent Iron Saturation 9 % (15-50) L Unsaturated Iron Binding 188 ug/dL (112-346) Ferritin 177 NG/ML (8-388) Total Bilirubin 0.5 MG/DL (0.2-1.0) Gamma Glutamyl Transpeptidase 27 U/L (5-85) Aspartate Amino Transf (AST/SGOT) 25 U/L (15-37) Alanine Aminotransferase (ALT/SGPT) 26 U/L (12-78) Alkaline Phosphatase 56 U/L (46-116) C-Reactive Protein, Quantitative 30.6 mg/dL (0.00-0.90) H Pro-B-Type Natriuretic Peptide 213 pg/mL (0-125) H Total Protein 5.6 G/DL (6.4-8.2) L Albumin 1.8 G/DL (3.4-5.0) L Globulin 3.8 g/dL Albumin/Globulin Ratio 0.5 (1.0-2.7) L Triglycerides Level 80 MG/DL (30-150) Cholesterol Level 93 MG/DL (< 200) LDL Cholesterol 42 mg/dL (<100) HDL Cholesterol 30 MG/DL (40-60) L Cholesterol/HDL Ratio 3.1 (3.3-4.4) L Vitamin B12 Level 907 PG/ML (193-986) Vitamin D 25-Hydroxy Pending 25-Hydroxy Vitamin D2 Pending 25-Hydroxy Vitamin D3 Pending Folate 16.1 NG/ML (8.6-58.9) Thyroid Stimulating Hormone (TSH) 0.605 uiU/mL (0.358-3.740) Objective HEAD AND NECK: Orally intubated LUNGS: Coarse rhonchi. CARDIOVASCULAR: Regular S1 and S2 with no gallop. ABDOMEN: Soft. EXTREMITIES: 1 plus pitting edema. Devyn Magdaleno MD Aug 07, 2020 13:51
--- NOTE | 2020-08-07 14:26 | Infectious Diseases Prog Note ---
Assessment/Plan Assessment/Plan ASSESSMENT AND PLAN: 1. 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 contaminant vs bacteremia, uti, sepsis, shock, respiratory failure, vent sirs, leukocytosis, fevers mrsa colonization + femoral line covid isolation - await covid-19 testing - vancomycin, cefepime and flagyl - f/u on sputum culture, labs and chest x-ray - change femoral line to picc line - icu care, vent care, bp support, pressors - d/w RN - f/u on covid-19 testing 2. await COVID testing. Patient is in COVID isolation with history of COVID in the past. 3. Patient is on steroids. 4. If patient has COVID infection or new COVID infection, patient is a poor candidate for remdesivir because of respiratory failure, mechanical ventilation. Probably not very beneficial action in a patient like this. 5. Vent care per Pulmonary Medicine. 6. Blood pressure support. 7. Hypertension. 8. CHF. 9. COPD. 10. Prostate cancer. 11. Anemia. 12. CVA. 13. Aspiration risk. 14. Peripheral vascular disease. 15. GERD. 16. Seizures. 17. Depression. 18. History of COVID infection in February 2020. 19. Continue treatment per primary consultants. 20. Orders were noted and entered. 21. Skin care protocol. 22. Allergies to penicillin and phenytoin. 23. Social history is negative. 24. Family history is noncontributory. 25. MAR is noted. 26. Case was discussed with RN. Subjective Constitutional: Reports: fatigue, other - + vent and + 4 mcqs pressors; Denies: fever HEENT: Reports: congestion Respiratory: Reports: shortness of breath Cardiovascular: Reports: other - + pressors, monitor reviewed Gastrointestinal/Abdominal: Denies: nausea, vomiting, diarrhea Genitourinary: Reports: other - + bee Neurologic: Reports: other - sedated, weak, on vent Psychiatric: Reports: other - NA Skin: Denies: rash Hematologic: Denies: bleeding Musculoskeletal: Reports: other - NA Allergies: Coded Allergies: PENICILLINS (Verified Allergy, Unknown, 03/10/20) PHENYTOIN (Verified Allergy, Unknown, 03/10/20) Objective Last 24 Hour Vital Signs Date Time Temp Pulse Resp B/P (MAP) Pulse Ox O2 Delivery O2 Flow Rate FiO2 08/07/20 13:45 79 16 96 08/07/20 13:30 79 16 98/64 (75) 96 08/07/20 13:15 77 16 96 08/07/20 13:00 76 16 99/63 (75) 98 08/07/20 12:45 74 16 98 08/07/20 12:30 74 16 108/71 (83) 97 08/07/20 12:15 78 16 98 08/07/20 12:00 78 16 91/54 (66) 97 08/07/20 12:00 Mechanical Ventilator 08/07/20 11:45 77 16 97 08/07/20 11:30 75 16 101/65 (77) 98 08/07/20 11:18 77 16 60 08/07/20 11:15 77 16 99 08/07/20 11:00 76 16 99/61 (74) 99 08/07/20 11:00 76 16 99/61 (74) 99 08/07/20 10:51 68 16 122/79 (93) 100 08/07/20 10:45 60 16 100 08/07/20 10:43 59 16 156/77 (103) 99 08/07/20 10:34 78 16 85/58 (67) 98 08/07/20 10:30 78 16 78/54 (62) 98 08/07/20 10:15 79 16 96 08/07/20 10:15 79 16 96 08/07/20 10:00 65 16 134/74 (94) 99 08/07/20 10:00 65 16 134/74 (94) 99 08/07/20 09:45 74 16 99 08/07/20 09:30 65 16 139/78 (98) 100 08/07/20 09:15 72 16 99 08/07/20 09:10 72 16 70 08/07/20 09:00 71 16 112/78 (89) 98 08/07/20 08:45 71 16 98 08/07/20 08:30 72 16 127/82 (97) 98 08/07/20 08:00 79 08/07/20 08:00 Mechanical Ventilator 08/07/20 08:00 80 08/07/20 08:00 71 16 140/88 (105) 98 08/07/20 07:15 70 16 80 08/07/20 07:00 16 140/80 Mechanical Ventilator 80 2/19/21 07:00 16 140/80 Mechanical Ventilator 80 08/07/20 07:00 71 16 140/88 (105) 98 08/07/20 06:00 78 16 123/81 (95) 97 08/07/20 06:00 16 123/81 Mechanical Ventilator 80 08/07/20 06:00 16 123/81 Mechanical Ventilator 80 08/07/20 05:00 76 16 112/74 (87) 95 08/07/20 05:00 16 118/80 Mechanical Ventilator 80 08/07/20 05:00 16 118/80 Mechanical Ventilator 80 08/07/20 04:15 80 15 108/71 (83) 94 08/07/20 04:00 80 08/07/20 04:00 16 108/71 Mechanical Ventilator 80 08/07/20 04:00 16 108/71 Mechanical Ventilator 80 08/07/20 04:00 98.9 78 16 115/79 (91) 95 08/07/20 04:00 Mechanical Ventilator 08/07/20 04:00 79 08/07/20 03:45 78 16 113/77 (89) 99 08/07/20 03:30 79 16 111/77 (88) 99 08/07/20 03:15 85 16 80 08/07/20 03:00 16 124/82 Mechanical Ventilator 80 08/07/20 03:00 16 124/82 Mechanical Ventilator 80 08/07/20 03:00 73 16 126/79 (95) 100 08/07/20 02:59 16 140/79 Mechanical Ventilator 10.0 80 08/07/20 02:58 16 140/79 Mechanical Ventilator 80 08/07/20 02:30 72 16 128/77 (94) 100 08/07/20 02:00 76 16 117/70 (86) 100 08/07/20 02:00 16 132/79 Mechanical Ventilator 80 08/07/20 02:00 16 132/79 Mechanical Ventilator 80 08/07/20 01:15 77 16 140/79 (99) 100 08/07/20 01:00 83 16 131/81 (98) 99 08/07/20 01:00 16 130/60 Mechanical Ventilator 80 08/07/20 01:00 16 130/60 Mechanical Ventilator 80 08/07/20 00:45 84 18 114/70 (85) 97 08/07/20 00:32 116/70 08/07/20 00:30 83 9 116/75 (89) 99 08/07/20 00:15 88 15 114/73 (87) 98 08/07/20 00:00 87 08/07/20 00:00 Mechanical Ventilator 08/07/20 00:00 80 08/07/20 00:00 99.0 91 16 121/70 (87) 99 08/07/20 00:00 16 120/70 Mechanical Ventilator 80 08/07/20 00:00 16 121/70 Mechanical Ventilator 80 08/06/20 23:20 85 16 80 08/06/20 23:00 86 16 106/74 (85) 96 08/06/20 23:00 16 106/74 Mechanical Ventilator 80 08/06/20 23:00 16 106/74 Mechanical Ventilator 80 08/06/20 22:00 87 16 129/71 (90) 94 08/06/20 22:00 16 120/72 Mechanical Ventilator 80 08/06/20 22:00 16 120/72 Mechanical Ventilator 80 08/06/20 21:00 87 16 109/75 (86) 100 08/06/20 21:00 16 115/76 Mechanical Ventilator 80 08/06/20 21:00 16 115/76 Mechanical Ventilator 80 08/06/20 20:30 87 16 117/73 (88) 94 08/06/20 20:15 89 16 110/70 (83) 93 08/06/20 20:00 95 08/06/20 20:00 80 08/06/20 20:00 Mechanical Ventilator 08/06/20 20:00 16 110/70 Mechanical Ventilator 80 08/06/20 20:00 16 110/70 Mechanical Ventilator 80 08/06/20 20:00 99.1 89 16 102/68 (79) 94 08/06/20 19:45 90 16 103/62 (76) 97 18 19:30 92 16 107/61 (76) 100 18 19:24 95 16 105/62 (76) 98 1821 19:20 101 16 80 1821 19:15 101 15 86/56 (66) 96 08/06/20 19:00 22 86/56 Mechanical Ventilator 80 08/06/20 19:00 16 86/56 Mechanical Ventilator 80 2/18/21 19:00 101 16 91/63 (72) 91 08/06/20 18:00 63/40 08/06/20 18:00 106 20 110/77 (88) 93 08/06/20 17:30 106 20 110/77 (88) 93 08/06/20 17:15 106 22 123/78 (93) 91 08/06/20 17:00 111 23 116/79 (91) 93 08/06/20 16:45 110 23 113/78 (90) 90 08/06/20 16:30 112 19 126/74 (91) 90 08/06/20 16:15 109 28 119/71 (87) 89 08/06/20 16:00 100 08/06/20 16:00 106 27 102/73 (83) 89 08/06/20 16:00 107 08/06/20 15:36 108 16 80 08/06/20 15:15 108 27 103/73 (83) 87 08/06/20 15:00 108 31 106/83 (91) 92 08/06/20 14:45 106 29 101/67 (78) 90 08/06/20 14:30 105 29 104/70 (81) 94 08/06/20 14:15 109 19 82/63 (69) 96 Height (Feet): 6 Height (Inches): 1.00 Weight (Pounds): 190 General Appearance: other - on vent and pressors, sedated HEENT: normocephalic, atraumatic, anicteric, mucous membranes moist, no JVD Respiratory/Chest: crackles/rales, rhonchi - bilaterally Cardiovascular: normal rate, regular rhythm, no gallop/murmur Abdomen: normal bowel sounds, soft, non tender, no organomegaly, non distended Genitourinary: other - + bee Extremities: no cyanosis Skin: no rash Neurologic/Psychiatric: other - sedated, weak and on vent Lymphatic: no neck adenopathy Musculoskeletal: no effusion CT Chest - Impression: Dense consolidation, likely representing pneumonia, involving the vast majority the right lower lobe, as well as a significant portion of the right upper lobe. Considerable right upper lobe atelectatic changes. COPD changes A few areas of atelectasis and possibly some consolidation is seen in the left lung Small right pleural fluid Evidence of old granulomatous disease 3 mm mm noncalcified nodule in the right middle lobe, not definitely evident previously. Recommend short interval 6 to 12 month follow-up CT scan Dilated right main pulmonary artery, indicative of pulmonary arterial hypertension Satisfactory endotracheal intubation Cholelithiasis Chest x-ray - 08/06/20 - Procedure: XRAY Chest 1v Indication: Abnormal chest sounds Technique: One view of the chest Comparison: 08/05/2020 Findings: Stable satisfactory the position of endotracheal tube. There is developing atelectasis in the right upper lung. There is persistent pleural fluid on the right and increasing parenchymal consolidation. Left lung pleural space remain clear. The heart size is normal Impression: Increasing right upper lobe atelectasis and right lung infiltrate. Unchanged right pleural effusion Laboratory Tests Test 08/06/20 15:25 08/07/20 04:25 Vancomycin Level Trough 6.1 ug/mL (5.0-12.0) White Blood Count 9.9 K/UL (4.8-10.8) Red Blood Count 3.20 M/UL (4.70-6.10) L Hemoglobin 8.7 G/DL (14.2-18.0) L Hematocrit 28.9 % (42.0-52.0) L Mean Corpuscular Volume 90 FL (80-99) Mean Corpuscular Hemoglobin 27.3 PG (27.0-31.0) Mean Corpuscular Hemoglobin Concent 30.2 G/DL (32.0-36.0) L Red Cell Distribution Width 14.0 % (11.6-14.8) Platelet Count 232 K/UL (150-450) Mean Platelet Volume 5.5 FL (6.5-10.1) L Neutrophils (%) (Auto) % (45.0-75.0) Lymphocytes (%) (Auto) % (20.0-45.0) Monocytes (%) (Auto) % (1.0-10.0) Eosinophils (%) (Auto) % (0.0-3.0) Basophils (%) (Auto) % (0.0-2.0) Differential Total Cells Counted 100 Neutrophils % (Manual) 89 % (45-75) H Lymphocytes % (Manual) 1 % (20-45) L Monocytes % (Manual) 4 % (1-10) Eosinophils % (Manual) 0 % (0-3) Basophils % (Manual) 0 % (0-2) Band Neutrophils 6 % (0-8) Platelet Estimate Adequate Platelet Morphology Normal Hypochromasia 1+ Anisocytosis 1+ Sodium Level 146 MMOL/L (136-145) H Potassium Level 3.5 MMOL/L (3.5-5.1) Chloride Level 111 MMOL/L (98-107) H Carbon Dioxide Level 29 MMOL/L (21-32) Anion Gap 6 mmol/L (5-15) Blood Urea Nitrogen 17 mg/dL (7-18) Creatinine 0.7 MG/DL (0.55-1.30) Estimat Glomerular Filtration Rate > 60 mL/min (>60) Glucose Level 178 MG/DL (74-106) H Hemoglobin A1c 6.1 % (4.3-6.0) H Uric Acid 4.0 MG/DL (2.6-7.2) Calcium Level 7.8 MG/DL (8.5-10.1) L Phosphorus Level 1.4 MG/DL (2.5-4.9) L Magnesium Level 2.0 MG/DL (1.8-2.4) Iron Level 19 ug/dL (50-175) L Total Iron Binding Capacity 207 ug/dL (250-450) L Percent Iron Saturation 9 % (15-50) L Unsaturated Iron Binding 188 ug/dL (112-346) Ferritin 177 NG/ML (8-388) Total Bilirubin 0.5 MG/DL (0.2-1.0) Gamma Glutamyl Transpeptidase 27 U/L (5-85) Aspartate Amino Transf (AST/SGOT) 25 U/L (15-37) Alanine Aminotransferase (ALT/SGPT) 26 U/L (12-78) Alkaline Phosphatase 56 U/L (46-116) C-Reactive Protein, Quantitative 30.6 mg/dL (0.00-0.90) H Pro-B-Type Natriuretic Peptide 213 pg/mL (0-125) H Total Protein 5.6 G/DL (6.4-8.2) L Albumin 1.8 G/DL (3.4-5.0) L Globulin 3.8 g/dL Albumin/Globulin Ratio 0.5 (1.0-2.7) L Triglycerides Level 80 MG/DL (30-150) Cholesterol Level 93 MG/DL (< 200) LDL Cholesterol 42 mg/dL (<100) HDL Cholesterol 30 MG/DL (40-60) L Cholesterol/HDL Ratio 3.1 (3.3-4.4) L Vitamin B12 Level 907 PG/ML (193-986) Vitamin D 25-Hydroxy Pending 25-Hydroxy Vitamin D2 Pending 25-Hydroxy Vitamin D3 Pending Folate 16.1 NG/ML (8.6-58.9) Thyroid Stimulating Hormone (TSH) 0.605 uiU/mL (0.358-3.740) Current Medications Medications (Trade) Dose Ordered Sig/Armand Route PRN Reason Start Time Stop Time Status Last Admin Dose Admin Albuterol/ Ipratropium (Combivent Respimat) 1 puff Q4H PRN INH Shortness of Breath 08/04/20 10:00 09/03/20 09:59 Albuterol/ Ipratropium (Combivent Respimat) 1 puff Q8HR INH 08/04/20 09:30 09/03/20 09:29 08/06/20 14:00 Cefepime HCl 2 gm/ Dextrose 110 ml @ 220 mls/hr EVERY 12 HOURS IV 08/05/20 21:00 08/12/20 20:59 08/07/20 09:00 Chlorhexidine Gluconate (Maddie-Hex 2%) 1 applic DAILY@2000 TOPIC 08/07/20 20:00 11/05/20 19:59 Dextrose/Sodium Chloride 1,000 ml @ 75 mls/hr [id number] IV 08/06/20 11:00 09/05/20 10:59 08/07/20 00:12 Enoxaparin Sodium (Lovenox) 60 mg EVERY 12 HOURS SUBQ 08/05/20 21:00 11/03/20 20:59 08/07/20 09:00 Famotidine (Pepcid I.v.) 20 mg Q12HR IVP 08/06/20 11:00 09/05/20 10:59 08/07/20 09:00 Fentanyl Citrate 250 ml @ 1 mls/hr Q24H IV 08/05/20 15:30 08/07/20 15:29 08/06/20 09:00 Gabapentin (Neurontin) 300 mg TID NG 08/05/20 09:00 09/04/20 08:59 08/07/20 09:00 Lorazepam (Ativan 2mg/ml 1ml) 0.5 mg Q6H PRN IV For Anxiety 08/04/20 21:30 08/11/20 21:29 Methylprednisolone Sodium Succinate (Solu-MEDROL) 40 mg EVERY 6 HOURS IVP 08/05/20 12:00 11/03/20 11:59 08/07/20 05:10 Metronidazole 100 ml @ 100 mls/hr Q8HR IVPB 08/04/20 14:00 08/11/20 13:59 08/07/20 05:10 Midazolam HCl 200 ml @ 0 mls/hr Q24H PRN IV To Patient Comfort 08/05/20 15:30 08/12/20 15:29 08/07/20 02:59 Norepinephrine Bitartrate 250 ml @ 0 mls/hr Q24H IV 08/05/20 17:45 08/08/20 17:32 08/07/20 00:32 Potassium Phosphate 250 ml @ 62.5 mls/hr Q4H IVPB 08/07/20 09:30 08/07/20 17:29 08/07/20 09:30 Vancomycin HCl ([facility]anco pharmacy to dose) 1 ea DAILY PRN MISC Per rx protocol 08/04/20 09:15 09/03/20 09:14 Vancomycin HCl 1 gm/Dextrose 275 ml @ 183.708 mls/hr Q8H IVPB 08/06/20 21:00 08/11/20 20:59 08/07/20 05:56 Kemar Nichole MD Aug 07, 2020 14:26
[2020-08-07] MEDS ORDERED: Lidocaine 1% Plain 30 ml INJ PRN (14:30)
[2020-08-07] MEDS ORDERED: Heparin1,000 units/500ml Premix(Conc:2 units/ml) IV PRN (14:30)
--- NOTE | 2020-08-07 14:39 | NUR ---
[employer] NOTE SW spoke w/ Ros from [facility] [phone], confirmed that pt is self-responsible, and did not have a decision maker. Pt has a girlfriend who was receiving information on pt's tx/care, but she was not involved in decision making. Per Ros, there was no POA document. SW spoke w/ pt's primary emergency contact, Jeffry Ceja [phone], and confirmed that Mr. Ceja is aware that he is listed as the primary emergency contact. However, Mr. Teran was unsure if pt has POA document. There is a copy of POLST-full code signed by pt.
--- NOTE | 2020-08-07 15:35 | NUR ---
CASE MANAGEMENT:REVIEW 08/07/20 SI: PNA. COPD EXACERBATION. UTI. INTUBATED 98.9 78 16 91/54 97% ON VENT SUPPORT W/60% FIO2 H/H-8.7/28.9 IS: IV K-PHOS Q4HRS X2 BAGS FENTANYL GTT LEVOPHED GTT VERSED GTT IV VANCOMYCIN Q12 IV CEFEPIME Q12 IV FLAGYL Q8HRS IV SOLUMEDROL 40MG Q6HRS LOVENOX SQ Q12 DUONEB INH Q8HRS :NOW IN ICU DCP: FROM [facility]
[2020-08-07] MEDS ORDERED: Tubing IV Secondary IV ONE (16:18)
--- NOTE | 2020-08-07 16:56 | Internal Med Progress Note ---
Subjective Physician Name Torres Saul Attending Physician Torres Saul MD Current Medications Medications (Trade) Dose Ordered Sig/Armand Route PRN Reason Start Time Stop Time Status Last Admin Dose Admin Albuterol/ Ipratropium (Combivent Respimat) 1 puff Q4H PRN INH Shortness of Breath 08/04/20 10:00 09/03/20 09:59 Albuterol/ Ipratropium (Combivent Respimat) 1 puff Q8HR INH 08/04/20 09:30 09/03/20 09:29 08/06/20 14:00 Cefepime HCl 2 gm/ Dextrose 110 ml @ 220 mls/hr EVERY 12 HOURS IV 08/05/20 21:00 08/12/20 20:59 08/07/20 09:00 Chlorhexidine Gluconate (Maddie-Hex 2%) 1 applic DAILY@2000 TOPIC 08/07/20 20:00 11/05/20 19:59 Dextrose/Sodium Chloride 1,000 ml @ 75 mls/hr [id number] IV 08/06/20 11:00 09/05/20 10:59 08/07/20 13:40 Enoxaparin Sodium (Lovenox) 60 mg EVERY 12 HOURS SUBQ 08/05/20 21:00 11/03/20 20:59 08/07/20 09:00 Famotidine (Pepcid I.v.) 20 mg Q12HR IVP 08/06/20 11:00 09/05/20 10:59 08/07/20 09:00 Fentanyl Citrate 250 ml @ 1 mls/hr Q24H IV 08/05/20 15:30 08/08/20 05:59 08/06/20 09:00 Fentanyl Citrate 1000 mcg/Sodium Chloride 120 ml @ 1.2 mls/hr Q24H IV 08/08/20 06:00 08/15/20 05:59 Gabapentin (Neurontin) 300 mg TID NG 08/05/20 09:00 09/04/20 08:59 08/07/20 13:00 Heparin Sodium/ Sodium Chloride (Heparin 1000 units/500ml Premix) 1,000 unit ONCE PRN IV picc line placement 08/07/20 14:30 08/09/20 14:29 Lidocaine HCl (Xylocaine 1% 30ml) 30 ml ONCE PRN INJ picc line placement 08/07/20 14:30 08/09/20 14:29 Lorazepam (Ativan 2mg/ml 1ml) 0.5 mg Q6H PRN IV For Anxiety 08/04/20 21:30 08/11/20 21:29 Methylprednisolone Sodium Succinate (Solu-MEDROL) 40 mg EVERY 6 HOURS IVP 08/05/20 12:00 11/03/20 11:59 08/07/20 12:00 Metronidazole 100 ml @ 100 mls/hr Q8HR IVPB 08/04/20 14:00 08/11/20 13:59 08/07/20 14:00 Midazolam HCl 200 ml @ 0 mls/hr Q24H PRN IV To Patient Comfort 08/05/20 15:30 08/12/20 15:29 08/07/20 02:59 Norepinephrine Bitartrate 250 ml @ 0 mls/hr Q24H IV 08/05/20 17:45 08/08/20 17:32 08/07/20 00:32 Potassium Phosphate 250 ml @ 62.5 mls/hr Q4H IVPB 08/07/20 09:30 08/07/20 17:29 08/07/20 13:30 Vancomycin HCl (ISIS sentronicso pharmacy to dose) 1 ea DAILY PRN MISC Per rx protocol 08/04/20 09:15 09/03/20 09:14 Vancomycin HCl 1 gm/Dextrose 275 ml @ 183.708 mls/hr Q8H IVPB 08/06/20 21:00 08/11/20 20:59 08/07/20 13:00 Allergies: Coded Allergies: PENICILLINS (Verified Allergy, Unknown, 03/10/20) PHENYTOIN (Verified Allergy, Unknown, 03/10/20) Subjective In ICU, Intubated, in respiratory and droplet isolation room, remain on ventilation, sedated, WBC: 9.9, hemoglobin: 8.7. Objective Last Vital Signs Date Time Temp Pulse Resp B/P (MAP) Pulse Ox O2 Delivery O2 Flow Rate FiO2 08/07/20 16:15 80 21 95 08/07/20 16:00 99/67 (78) 08/07/20 16:00 Mechanical Ventilator 08/07/20 16:00 60 08/07/20 04:00 98.9 08/07/20 02:59 10.0 Laboratory Tests Test 08/07/20 04:25 White Blood Count 9.9 K/UL (4.8-10.8) Red Blood Count 3.20 M/UL (4.70-6.10) L Hemoglobin 8.7 G/DL (14.2-18.0) L Hematocrit 28.9 % (42.0-52.0) L Mean Corpuscular Volume 90 FL (80-99) Mean Corpuscular Hemoglobin 27.3 PG (27.0-31.0) Mean Corpuscular Hemoglobin Concent 30.2 G/DL (32.0-36.0) L Red Cell Distribution Width 14.0 % (11.6-14.8) Platelet Count 232 K/UL (150-450) Mean Platelet Volume 5.5 FL (6.5-10.1) L Neutrophils (%) (Auto) % (45.0-75.0) Lymphocytes (%) (Auto) % (20.0-45.0) Monocytes (%) (Auto) % (1.0-10.0) Eosinophils (%) (Auto) % (0.0-3.0) Basophils (%) (Auto) % (0.0-2.0) Differential Total Cells Counted 100 Neutrophils % (Manual) 89 % (45-75) H Lymphocytes % (Manual) 1 % (20-45) L Monocytes % (Manual) 4 % (1-10) Eosinophils % (Manual) 0 % (0-3) Basophils % (Manual) 0 % (0-2) Band Neutrophils 6 % (0-8) Platelet Estimate Adequate Platelet Morphology Normal Hypochromasia 1+ Anisocytosis 1+ Sodium Level 146 MMOL/L (136-145) H Potassium Level 3.5 MMOL/L (3.5-5.1) Chloride Level 111 MMOL/L (98-107) H Carbon Dioxide Level 29 MMOL/L (21-32) Anion Gap 6 mmol/L (5-15) Blood Urea Nitrogen 17 mg/dL (7-18) Creatinine 0.7 MG/DL (0.55-1.30) Estimat Glomerular Filtration Rate > 60 mL/min (>60) Glucose Level 178 MG/DL (74-106) H Hemoglobin A1c 6.1 % (4.3-6.0) H Uric Acid 4.0 MG/DL (2.6-7.2) Calcium Level 7.8 MG/DL (8.5-10.1) L Phosphorus Level 1.4 MG/DL (2.5-4.9) L Magnesium Level 2.0 MG/DL (1.8-2.4) Iron Level 19 ug/dL (50-175) L Total Iron Binding Capacity 207 ug/dL (250-450) L Percent Iron Saturation 9 % (15-50) L Unsaturated Iron Binding 188 ug/dL (112-346) Ferritin 177 NG/ML (8-388) Total Bilirubin 0.5 MG/DL (0.2-1.0) Gamma Glutamyl Transpeptidase 27 U/L (5-85) Aspartate Amino Transf (AST/SGOT) 25 U/L (15-37) Alanine Aminotransferase (ALT/SGPT) 26 U/L (12-78) Alkaline Phosphatase 56 U/L (46-116) C-Reactive Protein, Quantitative 30.6 mg/dL (0.00-0.90) H Pro-B-Type Natriuretic Peptide 213 pg/mL (0-125) H Total Protein 5.6 G/DL (6.4-8.2) L Albumin 1.8 G/DL (3.4-5.0) L Globulin 3.8 g/dL Albumin/Globulin Ratio 0.5 (1.0-2.7) L Triglycerides Level 80 MG/DL (30-150) Cholesterol Level 93 MG/DL (< 200) LDL Cholesterol 42 mg/dL (<100) HDL Cholesterol 30 MG/DL (40-60) L Cholesterol/HDL Ratio 3.1 (3.3-4.4) L Vitamin B12 Level 907 PG/ML (193-986) Vitamin D 25-Hydroxy Pending 25-Hydroxy Vitamin D2 Pending 25-Hydroxy Vitamin D3 Pending Folate 16.1 NG/ML (8.6-58.9) Thyroid Stimulating Hormone (TSH) 0.605 uiU/mL (0.358-3.740) Intake and Output 08/06/20 08/07/20 19:00 07:00 Intake Total 337.5 ml 2450.333 ml Output Total 1200 ml 590 ml Balance -862.5 ml 1860.333 ml Free Water 50 ml IV Total 337.5 ml 2380.333 ml Tube Feeding 20 ml Output Urine Total 1200 ml 590 ml Objective GENERAL: The patient is well-developed, well-nourished male, intubated, sedated. HEENT: pupil equal reactive to the light, ET tube in the mouth. NECK: Supple. No JVD. CHEST: mechanical breath sounds, decreased air in the bases, no wheezes. CARDIOVASCULAR: Regular rhythm and rate. S1-S2 are normal without murmurs, ABDOMEN: Soft, nontender, and nondistended. Positive bowel sounds. EXTREMITIES: Negative for clubbing, cyanosis, or edema. RECTAL/GENITAL: Not performed. NEUROLOGIC: limited secondary to patient's status, patient is intubated and sedated, moving extremities spontaneously. Assessment/Plan Assessment/Plan ASSESSMENT: This is an 79-year-old male with. 1. Acute Hypoxemic Respiratory failure-intubated 08/05/20 2. Right-sided pneumonia. 3. Hypertension. 4. Congestive heart failure. 5. Chronic obstructive pulmonary disease. 6. Anemia. 7. Cerebrovascular disease, status post cerebrovascular accident. 8. Peripheral vascular disease. 9. Gastroesophageal reflux disease. 10. Major depression. 11. Seizure disorder. 12. History of COVID-19 positive in February 2020. 13. Benign prostatic hypertrophy. TREATMENT: 1. Acute hypoxemic Respiratory failure/right-sided pneumonia. A pulmonary consultation has been obtained with Dr. Micha Schneider. 2. Hypertension. 3. Congestive heart failure. 4. Chronic obstructive pulmonary disease. Continue DuoNeb as above. 5. Anemia. 6. Cerebrovascular disease. 7. Peripheral vascular disease. 8. Gastroesophageal reflux disease. Continue famotidine as above. 9. Major depression. Seizure disorder. 10. COVID-19 positive, history in February 2020. 11. Benign prostatic hypertrophy. Continue Flomax as above. Follow-up with laboratory and cultures. Antibiotics: Vancomycin IV, cefepime IV, Flagyl IV, Penicillin allergy DVT treatment: Lovenox 60 mg subcu twice a day Solu-Medrol 40 mg IV every 6 CODE STATUS: Full code. follow-up with COVID-19 PCR test try to wean off ventilation.. Torres Saul MD Aug 07, 2020 16:56
--- NOTE | 2020-08-07 19:30 | NUR ---
NURSE NOTES: Received report from Grzegorz LEMON. patient in bed sedated -2 RASS score. Orally intubated fi02 50%. HOB elevated. Right Femoral TLC intact infusing Fentanyl 60mcg/hr, Versed 5mg/hr, D5 1/2 NS at 75cc/hr BP 106/72, Levophed to 2mcg/min. . Butler intact draining. OGT intact Running Glucerna 1.5 at 30cc/hr tolerated well. bed alarm on. bed lock and in low position. will continue plan of care.
[2020-08-07] MEDS ORDERED: Dyna-Hex 2% Top Sol 2oz TOPIC SCH (20:00)
[2020-08-07] MEDS: Dyna-Hex 2% Top Sol 2oz TOPIC SCH (20:42)
--- NOTE | 2020-08-07 21:00 | NUR ---
NURSE NOTES: held vancomycin ATB previous nurse gave Vancomycin dose at 1900 too close for the next dose. left message to pipeline. charge nurse aware.
--- NOTE | 2020-08-07 21:30 | NUR ---
NURSE NOTES: Patient in bed sedated -2 RASS score. Right Femoral TLC intact infusing Fentanyl 60mcg/hr, Versed 5mg/hr, D5 1/2 NS at 75cc/hr Levophed to 2mcg/min. Turned and repositioned patient in bed. Butler intact draining. OGt intact. bed alarm on. bed lock and in low position. will continue plan of care.
--- NOTE | 2020-08-07 23:30 | NUR ---
NURSE NOTES: Patient in bed sedated -2 RASS score. Right Femoral TLC intact infusing Fentanyl 60mcg/hr, Versed 5mg/hr, D5 1/2 NS at 75cc/hr BP 118/69 Levophed to 10mcg/min. no s/s of acute distress noted. no fever. Turned and repositioned patient in bed. Butler intact draining. bed alarm on. bed lock and in low position. will continue plan of care.
[2020-08-08] VITALS (39 sets, daily range): BP systolic 91–129; BP diastolic 62–84
--- NOTE | 2020-08-08 01:00 | NUR ---
NURSE NOTES: Bed bath given tolerated well.
[2020-08-08] MEDS: Vancomycin 1gm/D5W 275ml IVPB SCH ×4 (03:00→11:31)
--- NOTE | 2020-08-08 04:00 | NUR ---
NURSE NOTES: Spoke with Gennaro Ornelas pharmacist regarding Vancomycin Atb, vanco through will retime at 1000.
[2020-08-08] MEDS ORDERED: fentaNYL Citrate 1,000 MCG in NS 100 ML IV SCH (06:00)
[2020-08-08] MEDS: Solu-MEDROL 40mg Inj IVP SCH ×4 (06:02→23:22)
--- NOTE | 2020-08-08 07:05 | NUR ---
RESPIRATORY NOTE: Received pt on AC 16-500ml-50%FiO2- peep of 5. Pt is intubated with ETT 7.5@23cm lip line, secured by anchor fast. Pt is sedated, resting in the bed, no respiratory distress noted . Suctioned moderate amt of thin yellow secretions that look like a color of tube feeding. Inform ION Yanez and she said that the pt has been having that color secretions prior to admission and it's not from the tube feeding. Alarms are on and audible, vent circuits are patent and out of the way. Will continue to monitor patient.
--- NOTE | 2020-08-08 07:05 | NUR ---
RESPIRATORY NOTE: Combivent was non-admitted due to the need to disconnect the pt's circuit in order to administer, there's no adaptor to connect to the vent. Pt is PUI. RN Nicole aware. Awaiting for MD's order.
--- NOTE | 2020-08-08 07:15 | NUR ---
NURSE HAND-OFF REPORT: Latest Vital Signs: Temperature 98.7 , Pulse 81 , B/P 124 /76 , Respiratory Rate 25 , O2 SAT 97 , Mechanical Ventilator, O2 Flow Rate . Vital Sign Comment: EKG Rhythm: NSR Rhythm change?: N MD Notified?: - MD Response: Latest Castro Fall Score: 50 Fall Risk: High Risk Safety Measures: Call light Within Reach, Bed Alarm Zone 2, Side Rails Side Rails x2, Bed position Low and Locked. Fall Precautions: Yellow Socks Yellow Gown Door Sign Patient Fall Education Report given to Nicole LEMON.
[2020-08-08 07:26] LABS: HEMATOCRIT 30.9 % (42.0-52.0); HEMOGLOBIN 9.1 G/DL (14.2-18.0); MEAN CORPUSCULAR VOLUME 91 FL (80-99); PLATELET COUNT 226 K/UL (150-450); RED BLOOD COUNT 3.39 M/UL (4.70-6.10); RED CELL DISTRIBUTION WIDTH 13.8 % (11.6-14.8); WHITE BLOOD COUNT 9.7 K/UL (4.8-10.8)
[2020-08-08 07:27] LABS: PHOSPHORUS 1.8 MG/DL (2.5-4.9)
[2020-08-08 07:30] LABS: ALANINE AMINOTRANSFERASE 29 U/L (12-78); ALBUMIN 1.9 G/DL (3.4-5.0); ALBUMIN/GLOBULIN RATIO 0.5 (1.0-2.7); ALKALINE PHOSPHATASE 58 U/L (46-116); ANION GAP 6 mmol/L (5-15); ASPARTATE AMINO TRANSFERASE 21 U/L (15-37); BILIRUBIN,TOTAL 0.3 MG/DL (0.2-1.0); BLOOD UREA NITROGEN 20 mg/dL (7-18); CALCIUM 8.4 MG/DL (8.5-10.1); CARBON DIOXIDE 30 MMOL/L (21-32); CHLORIDE 111 MMOL/L (98-107); CREATININE 0.7 MG/DL (0.55-1.30); POTASSIUM 4.2 MMOL/L (3.5-5.1); SODIUM 147 MMOL/L (136-145)
[2020-08-08] MEDS: fentaNYL 2500mcg/NS 250ml 250 ML IV SCH (09:29)
[2020-08-08] MEDS: Gabapentin 300 MG/6 ML Soln NG SCH ×3 (09:30→22:51)
[2020-08-08] MEDS: Enoxaparin 60mg Inj SUBQ SCH ×2 (09:30→20:20)
[2020-08-08] MEDS: Cefepime 2gm/D5W 110ml IV SCH ×4 (10:00→20:18)
[2020-08-08] MEDS: D5 1/2NS 1,000 ML IV SCH (10:07)
--- NOTE | 2020-08-08 10:30 | Surgery Progress Note ---
Surgery Progress Note Subjective Additional Comments no acute events ill appearing on support labs noted weaning Objective Last 24 Hour Vital Signs Date Time Temp Pulse Resp B/P (MAP) Pulse Ox O2 Delivery O2 Flow Rate FiO2 08/08/20 09:00 76 16 109/73 (85) 97 08/08/20 08:00 Mechanical Ventilator 08/08/20 08:00 50 08/08/20 08:00 99.0 80 20 119/79 (92) 95 08/08/20 07:46 80 08/08/20 07:30 81 25 124/76 (92) 97 08/08/20 07:05 83 16 50 08/08/20 07:00 84 23 120/75 (90) 97 08/08/20 07:00 16 120/75 Mechanical Ventilator 50 08/08/20 07:00 16 120/75 Mechanical Ventilator 50 08/08/20 06:30 88 21 129/84 (99) 97 08/08/20 06:02 16 99/66 Mechanical Ventilator 10.0 50 08/08/20 06:00 16 122/83 Mechanical Ventilator 50 08/08/20 06:00 16 122/83 Mechanical Ventilator 50 08/08/20 06:00 82 17 122/83 (96) 97 08/08/20 05:00 16 99/66 Mechanical Ventilator 50 08/08/20 05:00 16 99/66 Mechanical Ventilator 50 08/08/20 05:00 76 16 99/66 (77) 97 08/08/20 04:30 81 19 115/81 (92) 96 08/08/20 04:00 50 08/08/20 04:00 16 102/70 Mechanical Ventilator 50 08/08/20 04:00 16 102/72 Mechanical Ventilator 50 08/08/20 04:00 98.7 73 16 102/70 (81) 100 08/08/20 04:00 Mechanical Ventilator 08/08/20 04:00 84 08/08/20 03:57 76 16 50 21 03:30 76 16 98/69 (79) 97 08/08/20 03:00 76 16 103/66 (78) 96 08/08/20 03:00 16 98/69 Mechanical Ventilator 50 08/08/20 03:00 16 98/69 Mechanical Ventilator 50 08/08/20 02:30 78 16 101/71 (81) 96 08/08/20 02:00 79 16 99/67 (78) 96 08/08/20 02:00 16 101/71 Mechanical Ventilator 50 08/08/20 01:30 79 17 91/68 (76) 96 08/08/20 01:00 16 91/68 Mechanical Ventilator 50 08/08/20 01:00 16 91/68 Mechanical Ventilator 50 08/08/20 01:00 81 16 98/66 (77) 96 08/08/20 00:00 84 08/08/20 00:00 16 96/64 Mechanical Ventilator 50 08/08/20 00:00 16 96/64 Mechanical Ventilator 50 08/08/20 00:00 50 08/08/20 00:00 Mechanical Ventilator 08/08/20 00:00 98.0 85 16 103/69 (80) 95 08/07/20 23:30 86 17 101/69 (80) 95 08/07/20 23:03 89 16 50 08/07/20 23:00 90 23 101/72 (82) 94 08/07/20 23:00 16 101/69 Mechanical Ventilator 50 08/07/20 22:51 23 100/71 Mechanical Ventilator 10.0 50 08/07/20 22:30 89 23 100/71 (81) 95 08/07/20 22:00 92 20 105/71 (82) 98 08/07/20 21:30 90 21 109/69 (82) 95 08/07/20 21:00 90 23 108/77 (87) 95 08/07/20 20:30 96 28 114/73 (87) 98 08/07/20 20:00 82 08/07/20 20:00 Mechanical Ventilator 08/07/20 20:00 50 08/07/20 20:00 16 113/73 Mechanical Ventilator 50 08/07/20 20:00 22 113/73 Mechanical Ventilator 50 08/07/20 20:00 98.8 91 22 113/73 (86) 95 08/07/20 19:30 87 27 106/72 (83) 96 08/07/20 19:00 89 16 100/68 (79) 96 08/07/20 19:00 16 106/72 Mechanical Ventilator 80 08/07/20 19:00 16 106/72 Mechanical Ventilator 80 08/07/20 18:38 88 16 50 08/07/20 18:15 89 18 97 08/07/20 18:09 96 25 121/78 (92) 94 08/07/20 18:00 83 20 125/66 (85) 95 08/07/20 17:45 80 30 95 08/07/20 17:30 83 26 108/59 (75) 95 08/07/20 17:15 81 19 95 08/07/20 17:00 80 24 106/63 (77) 95 08/07/20 16:15 80 21 95 08/07/20 16:00 81 23 99/67 (78) 95 08/07/20 16:00 Mechanical Ventilator 08/07/20 16:00 80 08/07/20 16:00 60 08/07/20 15:45 80 19 95 08/07/20 15:30 79 16 103/66 (78) 97 08/07/20 15:22 80 16 50 08/07/20 15:15 79 16 97 08/07/20 15:00 79 16 100/68 (79) 97 08/07/20 15:00 79 16 100/68 (79) 97 08/07/20 14:45 78 16 96 08/07/20 14:30 78 16 106/66 (79) 96 08/07/20 14:15 79 16 97 08/07/20 14:00 77 16 102/63 (76) 98 08/07/20 14:00 99/63 08/07/20 13:45 79 16 96 08/07/20 13:30 79 16 98/64 (75) 96 08/07/20 13:15 77 16 96 08/07/20 13:00 76 16 99/63 (75) 98 08/07/20 12:45 74 16 98 08/07/20 12:30 74 16 108/71 (83) 97 08/07/20 12:15 78 16 98 08/07/20 12:00 80 08/07/20 12:00 78 16 91/54 (66) 97 08/07/20 12:00 Mechanical Ventilator 08/07/20 12:00 60 08/07/20 11:45 77 16 97 08/07/20 11:30 75 16 101/65 (77) 98 08/07/20 11:18 77 16 60 08/07/20 11:15 77 16 99 08/07/20 11:00 76 16 99/61 (74) 99 08/07/20 11:00 76 16 99/61 (74) 99 08/07/20 10:51 68 16 122/79 (93) 100 08/07/20 10:45 60 16 100 08/07/20 10:43 59 16 156/77 (103) 99 08/07/20 10:34 78 16 85/58 (67) 98 08/07/20 10:30 78 16 78/54 (62) 98 I&O Intake and Output 08/07/20 08/08/20 19:00 07:00 Intake Total 2020.708 ml 2291.300 ml Output Total 1010 ml 375 ml Balance 1010.708 ml 1916.300 ml Free Water 100 ml IV Total 1880.708 ml 1871.300 ml Tube Feeding 140 ml 320 ml Output Urine Total 1010 ml 375 ml Dressing: saturated Cardiovascular: RSR Respiratory: decreased breath sounds Abdomen: soft, non-tender, present bowel sounds, non-distended Extremities: no tenderness, no cyanosis Laboratory Tests Test 08/08/20 06:20 08/08/20 10:10 White Blood Count 9.7 K/UL (4.8-10.8) Red Blood Count 3.39 M/UL (4.70-6.10) L Hemoglobin 9.1 G/DL (14.2-18.0) L Hematocrit 30.9 % (42.0-52.0) L Mean Corpuscular Volume 91 FL (80-99) Mean Corpuscular Hemoglobin 26.8 PG (27.0-31.0) L Mean Corpuscular Hemoglobin Concent 29.5 G/DL (32.0-36.0) L Red Cell Distribution Width 13.8 % (11.6-14.8) Platelet Count 226 K/UL (150-450) Mean Platelet Volume 6.5 FL (6.5-10.1) Neutrophils (%) (Auto) % (45.0-75.0) Lymphocytes (%) (Auto) % (20.0-45.0) Monocytes (%) (Auto) % (1.0-10.0) Eosinophils (%) (Auto) % (0.0-3.0) Basophils (%) (Auto) % (0.0-2.0) Differential Total Cells Counted 100 Neutrophils % (Manual) 85 % (45-75) H Lymphocytes % (Manual) 8 % (20-45) L Monocytes % (Manual) 7 % (1-10) Eosinophils % (Manual) 0 % (0-3) Basophils % (Manual) 0 % (0-2) Band Neutrophils 0 % (0-8) Platelet Estimate Adequate Platelet Morphology Normal Hypochromasia 1+ Sodium Level 147 MMOL/L (136-145) H Potassium Level 4.2 MMOL/L (3.5-5.1) Chloride Level 111 MMOL/L (98-107) H Carbon Dioxide Level 30 MMOL/L (21-32) Anion Gap 6 mmol/L (5-15) Blood Urea Nitrogen 20 mg/dL (7-18) H Creatinine 0.7 MG/DL (0.55-1.30) Estimat Glomerular Filtration Rate > 60 mL/min (>60) Glucose Level 175 MG/DL (74-106) H Calcium Level 8.4 MG/DL (8.5-10.1) L Phosphorus Level 1.8 MG/DL (2.5-4.9) L Magnesium Level 2.3 MG/DL (1.8-2.4) Total Bilirubin 0.3 MG/DL (0.2-1.0) Aspartate Amino Transf (AST/SGOT) 21 U/L (15-37) Alanine Aminotransferase (ALT/SGPT) 29 U/L (12-78) Alkaline Phosphatase 58 U/L (46-116) C-Reactive Protein, Quantitative 15.6 mg/dL (0.00-0.90) H Pro-B-Type Natriuretic Peptide 256 pg/mL (0-125) H Total Protein 6.1 G/DL (6.4-8.2) L Albumin 1.9 G/DL (3.4-5.0) L Globulin 4.2 g/dL Albumin/Globulin Ratio 0.5 (1.0-2.7) L Vancomycin Level Trough Pending Plan Problems: (1) Abdominal distension Assessment & Plan: 79M abdominal distention, respiratory decline, altered mental status. on exam noted abd soft, mild distended, non tender. no n/v/f/c. unlikely aspiration. non tender one exam. pending urine and covid test. no acute surgical intervention. hold on ct. kub ordered. will follow with exam and recs. keep npo for now. iv fluids. respiratory pulm support. will follow with recs thank you decline since admission now intubated ng tube to suction no acute surgical intervention cont abx kub noted wean vent enema when stable The rectum is considerably distended with stool. Considerable stool is also seen in the descending colon. The colon is diffusely gas filled, upper limits of normal in caliber. No significant small bowel gas demonstrated. No masses or unusual calcifications. The included lung bases demonstrate bilateral right greater than left pleural effusions. There is a Butler catheter Impression: Distended stool-filled rectum, fecal impaction possible Gas-filled upper limits of normal caliber colon, nonspecific Bilateral right greater than left pleural effusions (2) UTI (urinary tract infection) (3) Pneumonia (4) Multiple pulmonary nodules (5) Respiratory failure with hypoxia (6) Pneumonia due to COVID-19 virus (7) History of CVA (cerebrovascular accident) (8) COPD (chronic obstructive pulmonary disease) (9) HTN (hypertension) (10) Hx of prostatic malignancy (11) Major depression (12) Seizure disorder Destin Brown Aug 08, 2020 10:30
--- NOTE | 2020-08-08 11:57 | Nephrology Progress Note ---
Assessment/Plan Problem List: (1) Oliguria (2) Electrolyte imbalance (3) Pneumonia (4) Respiratory failure with hypoxia (5) Pneumonia due to COVID-19 virus (6) Seizure disorder (7) Anemia Assessment Sepsis, respiratory failure Pneumonia and possible aspiration. Questionable COVID-19 infection UTI Abnormal electrolytes Questionable CHF Anemia Plan August 08: Labs reviewed. Renal parameters stable. Abnormal electrolytes addressed. Remains full code. FiO2 50%. Continue per consultants. Discussed with RN. August 07: Labs reviewed. K Phos IV given. Patient intubated. Full code. FiO2 60%. Medication list reviewed. Continue per consultants. Previously: Optimize pulmonary status Optimize cardiac status Monitor renal parameters, urine output, electrolytes Change IV to half-normal saline Anemia mansfield Insert NG tube and start feeding Per orders Subjective ROS Limited/Unobtainable: Yes Objective Objective Last 24 Hour Vital Signs Date Time Temp Pulse Resp B/P (MAP) Pulse Ox O2 Delivery O2 Flow Rate FiO2 08/08/20 11:00 78 16 108/68 (81) 97 08/08/20 10:42 81 16 50 08/08/20 10:30 83 15 102/69 (80) 97 08/08/20 10:00 78 16 109/71 (84) 97 08/08/20 09:00 76 16 109/73 (85) 97 08/08/20 08:00 Mechanical Ventilator 08/08/20 08:00 50 08/08/20 08:00 99.0 80 20 119/79 (92) 95 08/08/20 07:46 80 08/08/20 07:30 81 25 124/76 (92) 97 08/08/20 07:05 83 16 50 08/08/20 07:00 84 23 120/75 (90) 97 08/08/20 07:00 16 120/75 Mechanical Ventilator 50 08/08/20 07:00 16 120/75 Mechanical Ventilator 50 08/08/20 06:30 88 21 129/84 (99) 97 08/08/20 06:02 16 99/66 Mechanical Ventilator 10.0 50 08/08/20 06:00 16 122/83 Mechanical Ventilator 50 08/08/20 06:00 16 122/83 Mechanical Ventilator 50 08/08/20 06:00 82 17 122/83 (96) 97 08/08/20 05:00 16 99/66 Mechanical Ventilator 50 08/08/20 05:00 16 99/66 Mechanical Ventilator 50 08/08/20 05:00 76 16 99/66 (77) 97 08/08/20 04:30 81 19 115/81 (92) 96 08/08/20 04:00 50 08/08/20 04:00 16 102/70 Mechanical Ventilator 50 08/08/20 04:00 16 102/72 Mechanical Ventilator 50 08/08/20 04:00 98.7 73 16 102/70 (81) 100 08/08/20 04:00 Mechanical Ventilator 08/08/20 04:00 84 08/08/20 03:57 76 16 50 08/08/20 03:30 76 16 98/69 (79) 97 08/08/20 03:00 76 16 103/66 (78) 96 08/08/20 03:00 16 98/69 Mechanical Ventilator 50 08/08/20 03:00 16 98/69 Mechanical Ventilator 50 08/08/20 02:30 78 16 101/71 (81) 96 08/08/20 02:00 79 16 99/67 (78) 96 08/08/20 02:00 16 101/71 Mechanical Ventilator 50 08/08/20 01:30 79 17 91/68 (76) 96 08/08/20 01:00 16 91/68 Mechanical Ventilator 50 08/08/20 01:00 16 91/68 Mechanical Ventilator 50 08/08/20 01:00 81 16 98/66 (77) 96 08/08/20 00:00 84 08/08/20 00:00 16 96/64 Mechanical Ventilator 50 08/08/20 00:00 16 96/64 Mechanical Ventilator 50 08/08/20 00:00 50 08/08/20 00:00 Mechanical Ventilator 08/08/20 00:00 98.0 85 16 103/69 (80) 95 08/07/20 23:30 86 17 101/69 (80) 95 08/07/20 23:03 89 16 50 08/07/20 23:00 90 23 101/72 (82) 94 21 23:00 16 101/69 Mechanical Ventilator 50 08/07/20 22:51 23 100/71 Mechanical Ventilator 10.0 50 08/07/20 22:30 89 23 100/71 (81) 95 08/07/20 22:00 92 20 105/71 (82) 98 2/19/21 21:30 90 21 109/69 (82) 95 08/07/20 21:00 90 23 108/77 (87) 95 08/07/20 20:30 96 28 114/73 (87) 98 08/07/20 20:00 82 08/07/20 20:00 Mechanical Ventilator 08/07/20 20:00 50 08/07/20 20:00 16 113/73 Mechanical Ventilator 50 08/07/20 20:00 22 113/73 Mechanical Ventilator 50 08/07/20 20:00 98.8 91 22 113/73 (86) 95 08/07/20 19:30 87 27 106/72 (83) 96 08/07/20 19:00 89 16 100/68 (79) 96 08/07/20 19:00 16 106/72 Mechanical Ventilator 80 08/07/20 19:00 16 106/72 Mechanical Ventilator 80 08/07/20 18:38 88 16 50 08/07/20 18:15 89 18 97 08/07/20 18:09 96 25 121/78 (92) 94 08/07/20 18:00 83 20 125/66 (85) 95 08/07/20 17:45 80 30 95 08/07/20 17:30 83 26 108/59 (75) 95 08/07/20 17:15 81 19 95 08/07/20 17:00 80 24 106/63 (77) 95 08/07/20 16:15 80 21 95 08/07/20 16:00 81 23 99/67 (78) 95 08/07/20 16:00 Mechanical Ventilator 08/07/20 16:00 80 08/07/20 16:00 60 08/07/20 15:45 80 19 95 08/07/20 15:30 79 16 103/66 (78) 97 21 15:22 80 16 50 08/07/20 15:15 79 16 97 08/07/20 15:00 79 16 100/68 (79) 97 21 15:00 79 16 100/68 (79) 97 08/07/20 14:45 78 16 96 08/07/20 14:30 78 16 106/66 (79) 96 08/07/20 14:15 79 16 97 08/07/20 14:00 77 16 102/63 (76) 98 2/19/21 14:00 99/63 08/07/20 13:45 79 16 96 08/07/20 13:30 79 16 98/64 (75) 96 08/07/20 13:15 77 16 96 08/07/20 13:00 76 16 99/63 (75) 98 08/07/20 12:45 74 16 98 08/07/20 12:30 74 16 108/71 (83) 97 08/07/20 12:15 78 16 98 08/07/20 12:00 80 08/07/20 12:00 78 16 91/54 (66) 97 08/07/20 12:00 Mechanical Ventilator 08/07/20 12:00 60 Intake and Output 08/07/20 08/08/20 19:00 07:00 Intake Total 2020.708 ml 2291.300 ml Output Total 1010 ml 375 ml Balance 1010.708 ml 1916.300 ml Free Water 100 ml IV Total 1880.708 ml 1871.300 ml Tube Feeding 140 ml 320 ml Output Urine Total 1010 ml 375 ml Laboratory Tests 08/08/20 06:20: White Blood Count 9.7, Red Blood Count 3.39L, Hemoglobin 9.1L, Hematocrit 30.9L, Mean Corpuscular Volume 91, Mean Corpuscular Hemoglobin 26.8L, Mean Corpuscular Hemoglobin Concent 29.5L, Red Cell Distribution Width 13.8, Platelet Count 226, Mean Platelet Volume 6.5, Neutrophils (%) (Auto) , Lymphocytes (%) (Auto) , Monocytes (%) (Auto) , Eosinophils (%) (Auto) , Basophils (%) (Auto) , Differential Total Cells Counted 100, Neutrophils % (Manual) 85H, Lymphocytes % (Manual) 8L, Monocytes % (Manual) 7, Eosinophils % (Manual) 0, Basophils % (Manual) 0, Band Neutrophils 0, Platelet Estimate Adequate, Platelet Morphology Normal, Hypochromasia 1+, Sodium Level 147H, Potassium Level 4.2, Chloride Level 111H, Carbon Dioxide Level 30, Anion Gap 6, Blood Urea Nitrogen 20H, Creatinine 0.7, Estimat Glomerular Filtration Rate > 60, Glucose Level 175H, Calcium Level 8.4L, Phosphorus Level 1.8L, Magnesium Level 2.3, Total Bilirubin 0.3, Aspartate Amino Transf (AST/SGOT) 21, Alanine Aminotransferase (ALT/SGPT) 29, Alkaline Phosphatase 58, C-Reactive Protein, Quantitative 15.6H, Pro-B-Type Natriuretic Peptide 256H, Total Protein 6.1L, Albumin 1.9L, Globulin 4.2, Albumin/Globulin Ratio 0.5L 08/08/20 10:10: Vancomycin Level Trough 12.4H 08/08/20 10:29: Arterial Blood pH 7.394, Arterial Blood Partial Pressure CO2 51.8H, Arterial Blood Partial Pressure O2 76.3, Arterial Blood HCO3 30.9H, Arterial Blood Oxygen Saturation 94.7L, Arterial Blood Base Excess 5.2H, Chadwick Test Positive Height (Feet): 6 Height (Inches): 1.00 Weight (Pounds): 190 General Appearance: no apparent distress EENT: other - Intubated on ventilator Cardiovascular: normal rate Respiratory/Chest: decreased breath sounds Abdomen: distended Aashish Burgess MD Aug 08, 2020 11:57
[2020-08-08] MEDS ORDERED: Sodium Phosphate 30 MM in NS 275 ML IVPB ONE (12:00)
--- NOTE | 2020-08-08 12:00 | Pulmonology Progress Note ---
Subjective ROS Limited/Unobtainable: Yes Interval Events: Intubated 08/05/20 Constitutional: Reports: fatigue, other - + vent and + 4 mcqs pressors; Denies: fever HEENT: Repors: no symptoms Respiratory: Reports: shortness of breath Cardiovascular: Reports: no symptoms Gastrointestinal/Abdominal: Denies: nausea, vomiting, diarrhea Genitourinary: Reports: no symptoms Neurologic: Reports: no symptoms Psychiatric: Reports: other - NA Skin: Denies: rash Musculoskeletal: Reports: other - NA Allergies: Coded Allergies: PENICILLINS (Verified Allergy, Unknown, 03/10/20) PHENYTOIN (Verified Allergy, Unknown, 03/10/20) Objective Last 24 Hour Vital Signs Date Time Temp Pulse Resp B/P (MAP) Pulse Ox O2 Delivery O2 Flow Rate FiO2 08/08/20 11:00 78 16 108/68 (81) 97 08/08/20 10:42 81 16 50 08/08/20 10:30 83 15 102/69 (80) 97 08/08/20 10:00 78 16 109/71 (84) 97 08/08/20 09:00 76 16 109/73 (85) 97 08/08/20 08:00 Mechanical Ventilator 08/08/20 08:00 50 08/08/20 08:00 99.0 80 20 119/79 (92) 95 08/08/20 07:46 80 08/08/20 07:30 81 25 124/76 (92) 97 08/08/20 07:05 83 16 50 08/08/20 07:00 84 23 120/75 (90) 97 08/08/20 07:00 16 120/75 Mechanical Ventilator 50 08/08/20 07:00 16 120/75 Mechanical Ventilator 50 08/08/20 06:30 88 21 129/84 (99) 97 08/08/20 06:02 16 99/66 Mechanical Ventilator 10.0 50 08/08/20 06:00 16 122/83 Mechanical Ventilator 50 08/08/20 06:00 16 122/83 Mechanical Ventilator 50 08/08/20 06:00 82 17 122/83 (96) 97 08/08/20 05:00 16 99/66 Mechanical Ventilator 50 08/08/20 05:00 16 99/66 Mechanical Ventilator 50 08/08/20 05:00 76 16 99/66 (77) 97 08/08/20 04:30 81 19 115/81 (92) 96 08/08/20 04:00 50 08/08/20 04:00 16 102/70 Mechanical Ventilator 50 08/08/20 04:00 16 102/72 Mechanical Ventilator 50 08/08/20 04:00 98.7 73 16 102/70 (81) 100 08/08/20 04:00 Mechanical Ventilator 08/08/20 04:00 84 08/08/20 03:57 76 16 50 08/08/20 03:30 76 16 98/69 (79) 97 08/08/20 03:00 76 16 103/66 (78) 96 08/08/20 03:00 16 98/69 Mechanical Ventilator 50 08/08/20 03:00 16 98/69 Mechanical Ventilator 50 08/08/20 02:30 78 16 101/71 (81) 96 08/08/20 02:00 79 16 99/67 (78) 96 08/08/20 02:00 16 101/71 Mechanical Ventilator 50 08/08/20 01:30 79 17 91/68 (76) 96 08/08/20 01:00 16 91/68 Mechanical Ventilator 50 08/08/20 01:00 16 91/68 Mechanical Ventilator 50 08/08/20 01:00 81 16 98/66 (77) 96 08/08/20 00:00 84 08/08/20 00:00 16 96/64 Mechanical Ventilator 50 08/08/20 00:00 16 96/64 Mechanical Ventilator 50 08/08/20 00:00 50 08/08/20 00:00 Mechanical Ventilator 08/08/20 00:00 98.0 85 16 103/69 (80) 95 08/07/20 23:30 86 17 101/69 (80) 95 08/07/20 23:03 89 16 50 08/07/20 23:00 90 23 101/72 (82) 94 08/07/20 23:00 16 101/69 Mechanical Ventilator 50 08/07/20 22:51 23 100/71 Mechanical Ventilator 10.0 50 21 22:30 89 23 100/71 (81) 95 08/07/20 22:00 92 20 105/71 (82) 98 08/07/20 21:30 90 21 109/69 (82) 95 08/07/20 21:00 90 23 108/77 (87) 95 08/07/20 20:30 96 28 114/73 (87) 98 08/07/20 20:00 82 08/07/20 20:00 Mechanical Ventilator 08/07/20 20:00 50 08/07/20 20:00 16 113/73 Mechanical Ventilator 50 08/07/20 20:00 22 113/73 Mechanical Ventilator 50 08/07/20 20:00 98.8 91 22 113/73 (86) 95 08/07/20 19:30 87 27 106/72 (83) 96 08/07/20 19:00 89 16 100/68 (79) 96 08/07/20 19:00 16 106/72 Mechanical Ventilator 80 08/07/20 19:00 16 106/72 Mechanical Ventilator 80 08/07/20 18:38 88 16 50 08/07/20 18:15 89 18 97 08/07/20 18:09 96 25 121/78 (92) 94 08/07/20 18:00 83 20 125/66 (85) 95 08/07/20 17:45 80 30 95 08/07/20 17:30 83 26 108/59 (75) 95 08/07/20 17:15 81 19 95 08/07/20 17:00 80 24 106/63 (77) 95 08/07/20 16:15 80 21 95 08/07/20 16:00 81 23 99/67 (78) 95 08/07/20 16:00 Mechanical Ventilator 08/07/20 16:00 80 08/07/20 16:00 60 08/07/20 15:45 80 19 95 08/07/20 15:30 79 16 103/66 (78) 97 08/07/20 15:22 80 16 50 08/07/20 15:15 79 16 97 08/07/20 15:00 79 16 100/68 (79) 97 08/07/20 15:00 79 16 100/68 (79) 97 08/07/20 14:45 78 16 96 08/07/20 14:30 78 16 106/66 (79) 96 08/07/20 14:15 79 16 97 08/07/20 14:00 77 16 102/63 (76) 98 08/07/20 14:00 99/63 08/07/20 13:45 79 16 96 08/07/20 13:30 79 16 98/64 (75) 96 08/07/20 13:15 77 16 96 08/07/20 13:00 76 16 99/63 (75) 98 08/07/20 12:45 74 16 98 08/07/20 12:30 74 16 108/71 (83) 97 08/07/20 12:15 78 16 98 08/07/20 12:00 80 08/07/20 12:00 78 16 91/54 (66) 97 08/07/20 12:00 Mechanical Ventilator 08/07/20 12:00 60 Intake and Output 08/07/20 08/08/20 19:00 07:00 Intake Total 2020.708 ml 2291.300 ml Output Total 1010 ml 375 ml Balance 1010.708 ml 1916.300 ml Free Water 100 ml IV Total 1880.708 ml 1871.300 ml Tube Feeding 140 ml 320 ml Output Urine Total 1010 ml 375 ml General Appearance: no acute distress HEENT: normocephalic Respiratory: chest wall non-tender, lungs clear Cardiovascular: normal peripheral pulses, normal rate Abdomen: normal bowel sounds Extremities: no cyanosis Microbiology Date/Time Source Procedure Growth Status 08/07/20 04:00 Sputum Gram Stain - Final Resulted 08/07/20 04:00 Sputum Sputum Culture - Preliminary NO GROWTH Resulted 08/06/20 03:20 Blood Blood Culture - Preliminary NO GROWTH AFTER 24 HOURS Resulted 08/06/20 03:15 Blood Blood Culture - Preliminary NO GROWTH AFTER 24 HOURS Resulted 08/05/20 14:06 Nasopharynx Coronavirus COVID-19 PCR ([facility]) - Final Complete Laboratory Tests 08/08/20 06:20: White Blood Count 9.7, Red Blood Count 3.39L, Hemoglobin 9.1L, Hematocrit 30.9L, Mean Corpuscular Volume 91, Mean Corpuscular Hemoglobin 26.8L, Mean Corpuscular Hemoglobin Concent 29.5L, Red Cell Distribution Width 13.8, Platelet Count 226, Mean Platelet Volume 6.5, Neutrophils (%) (Auto) , Lymphocytes (%) (Auto) , Monocytes (%) (Auto) , Eosinophils (%) (Auto) , Basophils (%) (Auto) , Differential Total Cells Counted 100, Neutrophils % (Manual) 85H, Lymphocytes % (Manual) 8L, Monocytes % (Manual) 7, Eosinophils % (Manual) 0, Basophils % (Manual) 0, Band Neutrophils 0, Platelet Estimate Adequate, Platelet Morphology Normal, Hypochromasia 1+, Sodium Level 147H, Potassium Level 4.2, Chloride Level 111H, Carbon Dioxide Level 30, Anion Gap 6, Blood Urea Nitrogen 20H, Creatinine 0.7, Estimat Glomerular Filtration Rate > 60, Glucose Level 175H, Calcium Level 8.4L, Phosphorus Level 1.8L, Magnesium Level 2.3, Total Bilirubin 0.3, Aspartate Amino Transf (AST/SGOT) 21, Alanine Aminotransferase (ALT/SGPT) 29, Alkaline Phosphatase 58, C-Reactive Protein, Quantitative 15.6H, Pro-B-Type Natriuretic Peptide 256H, Total Protein 6.1L, Albumin 1.9L, Globulin 4.2, Albumin/Globulin Ratio 0.5L 08/08/20 10:10: Vancomycin Level Trough 12.4H 08/08/20 10:29: Arterial Blood pH 7.394, Arterial Blood Partial Pressure CO2 51.8H, Arterial Blood Partial Pressure O2 76.3, Arterial Blood HCO3 30.9H, Arterial Blood Oxygen Saturation 94.7L, Arterial Blood Base Excess 5.2H, Chadwick Test Positive Current Medications Medications (Trade) Dose Ordered Sig/Armand Route PRN Reason Start Time Stop Time Status Last Admin Dose Admin Albuterol/ Ipratropium (Combivent Respimat) 1 puff Q4H PRN INH Shortness of Breath 08/04/20 10:00 09/03/20 09:59 Albuterol/ Ipratropium (Combivent Respimat) 1 puff Q8HR INH 08/04/20 09:30 09/03/20 09:29 08/06/20 14:00 Cefepime HCl 2 gm/ Dextrose 110 ml @ 220 mls/hr EVERY 12 HOURS IV 08/05/20 21:00 08/12/20 20:59 08/08/20 10:00 Chlorhexidine Gluconate (Maddie-Hex 2%) 1 applic DAILY@2000 TOPIC 08/07/20 20:00 11/05/20 19:59 08/07/20 20:42 Dextrose/Sodium Chloride 1,000 ml @ 75 mls/hr [id number] IV 08/06/20 11:00 09/05/20 10:59 08/08/20 10:07 Enoxaparin Sodium (Lovenox) 60 mg EVERY 12 HOURS SUBQ 08/05/20 21:00 11/03/20 20:59 08/08/20 09:30 Famotidine (Pepcid I.v.) 20 mg Q12HR IVP 08/06/20 11:00 09/05/20 10:59 08/08/20 09:30 Fentanyl Citrate 1000 mcg/Sodium Chloride 100 ml @ 1 mls/hr Q24H IV 08/08/20 16:00 08/10/20 15:59 Fentanyl Citrate 1000 mcg/Sodium Chloride 120 ml @ 1.2 mls/hr Q24H IV 08/08/20 06:00 08/08/20 15:59 08/08/20 06:02 Gabapentin (Neurontin) 300 mg TID NG 08/05/20 09:00 09/04/20 08:59 08/08/20 09:30 Heparin Sodium/ Sodium Chloride (Heparin 1000 units/500ml Premix) 1,000 unit ONCE PRN IV picc line placement 08/07/20 14:30 08/09/20 14:29 Lidocaine HCl (Xylocaine 1% 30ml) 30 ml ONCE PRN INJ picc line placement 08/07/20 14:30 08/09/20 14:29 Lorazepam (Ativan 2mg/ml 1ml) 0.5 mg Q6H PRN IV For Anxiety 08/04/20 21:30 08/11/20 21:29 Methylprednisolone Sodium Succinate (Solu-MEDROL) 40 mg EVERY 6 HOURS IVP 08/05/20 12:00 11/03/20 11:59 08/08/20 06:02 Metronidazole 100 ml @ 100 mls/hr Q8HR IVPB 08/04/20 14:00 08/11/20 13:59 08/08/20 06:02 Midazolam HCl 200 ml @ 0 mls/hr Q24H PRN IV To Patient Comfort 08/05/20 15:30 08/12/20 15:29 08/07/20 22:51 Norepinephrine Bitartrate 250 ml @ 0 mls/hr Q24H IV 08/05/20 17:45 08/08/20 17:32 08/07/20 14:00 Sodium Phosphate 30 mm/Sodium Chloride 285 ml @ 47.5 mls/hr ONCE ONCE IVPB 08/08/20 12:00 08/08/20 17:59 Vancomycin HCl 250 ml @ 166.667 mls/hr Q8HR@0400,1200,2000 IVPB 08/08/20 20:00 08/13/20 19:59 Vancomycin HCl ([facility] pharmacy to dose) 1 ea DAILY PRN MISC Per rx protocol 08/04/20 09:15 09/03/20 09:14 Vancomycin HCl 1 gm/Dextrose 275 ml @ 183.708 mls/hr Q8H IVPB 08/06/20 21:00 08/08/20 14:00 08/08/20 11:31 Assessment/Plan Assessment/Plan 1. UTI -On empiric antibiotics -Follow-up UCx negative (08/03) 2. Pneumonia -On broad-spectrum antibiotics - CXR concerning for volume loss -> await CT chest 3. COPD exacerbation -Now intubated 4. Respiratory distress - Continue steroids 5. History of seizures -Risk of aspiration -Monitor for seizure activity 6. Elevated CRP -D-dimer wnl -His outpatient medications include Eliquis (hx of A fib?) - Continue Eliquis 7. Monitor carefully in ICU S/p intubation On Levophed; low dose; will attempt to dc Continue AC mode; will begin weaning FiO2 90->80 ->40% PEEP 5 Micha Schneider MD Aug 08, 2020 12:00
--- NOTE | 2020-08-08 13:20 | NUR ---
RESPIRATORY NOTE: Received weaning order per dr. Schneider. Unable to wean pt at this time due to sedation. ION Rivera aware, and will slower sedation medicine today. Will continue to monitor and start weaning pt per weaning order.
[2020-08-08] MEDS ORDERED: Acetaminophen 650mg/20.3ml NG PRN (14:00)
--- NOTE | 2020-08-08 14:34 | NUR ---
NURSE NOTES: Dr. Magdaleno at bedside.
--- NOTE | 2020-08-08 16:53 | Cardiac Electrophysiology PN ---
Assessment/Plan Assessment/Plan 1. Respiratory failure. On the Vent and IV antibiotic. On 50% Fio2 Echocardiogram showed EF 50% 2. Questionable congestive heart failure. EF normal and BNP is only 39. 3. History of COVID pneumonia, status post vaccination for COVID. Currently on IV antibiotic and prednisone. 4. Questionable history of atrial fibrillation versus DVT. The patient is on Eliquis 2.5 mg b.i.d. Currently in SR 5. Full Code Subjective Subjective In ICU on 50% Fio2 and PEEP 5 On Levo 2 mcg Objective Last 24 Hour Vital Signs Date Time Temp Pulse Resp B/P (MAP) Pulse Ox O2 Delivery O2 Flow Rate FiO2 08/08/20 16:30 73 16 97/68 (78) 100 08/08/20 16:15 74 16 103/69 (80) 100 08/08/20 16:00 Mechanical Ventilator 08/08/20 16:00 98.7 72 16 102/67 (79) 100 08/08/20 16:00 50 08/08/20 16:00 72 08/08/20 15:45 73 16 101/65 (77) 100 08/08/20 15:30 73 16 100/62 (75) 100 08/08/20 15:15 69 16 129/69 (89) 97 08/08/20 15:14 68 16 50 08/08/20 15:00 70 16 117/73 (88) 97 08/08/20 15:00 16 117/73 Mechanical Ventilator 50 08/08/20 15:00 16 117/73 Mechanical Ventilator 50 08/08/20 14:45 70 16 111/71 (84) 96 08/08/20 14:45 16 111/71 Non-Rebreather 50 08/08/20 14:45 16 111/71 Mechanical Ventilator 50 08/08/20 14:30 70 16 115/69 (84) 97 08/08/20 14:00 16 118/79 Mechanical Ventilator 50 08/08/20 14:00 16 118/79 Mechanical Ventilator 50 08/08/20 14:00 71 16 118/79 (92) 97 08/08/20 13:00 72 16 104/72 (83) 97 08/08/20 13:00 16 104/72 Mechanical Ventilator 50 08/08/20 13:00 16 104/72 Mechanical Ventilator 50 08/08/20 12:00 98.5 74 16 103/69 (80) 97 220/21 12:00 50 220/21 12:00 Mechanical Ventilator 220/21 12:00 16 103/69 Mechanical Ventilator 50 2/21 12:00 16 103/69 Mechanical Ventilator 50 220/21 11:39 78 2/20/21 11:00 78 16 108/68 (81) 97 220/21 11:00 16 108/68 Mechanical Ventilator 50 2/21 11:00 16 108/68 Mechanical Ventilator 50 2/21 10:42 81 16 50 2/20/21 10:30 83 15 102/69 (80) 97 20/21 10:00 16 109/71 Mechanical Ventilator 50 08/08/20 10:00 16 109/71 Mechanical Ventilator 50 2/21 10:00 78 16 109/71 (84) 97 08/08/ 09:00 16 109/73 Mechanical Ventilator 50 2/21 09:00 16 109/73 Mechanical Ventilator 50 08/08/ 09:00 76 16 109/73 (85) 97 08/08/20 08:00 Mechanical Ventilator 2/21 08:00 50 2/21 08:00 20 119/79 Mechanical Ventilator 50 2/21 08:00 20 119/79 Mechanical Ventilator 50 2/ 08:00 99.0 80 20 119/79 (92) 95 220/21 07:46 80 2/20/21 07:30 81 25 124/76 (92) 97 220/21 07:05 83 16 50 220/21 07:00 84 23 120/75 (90) 97 2/21 07:00 16 120/75 Mechanical Ventilator 50 220/21 07:00 16 120/75 Mechanical Ventilator 50 220/21 06:30 88 21 129/84 (99) 97 220/21 06:02 16 99/66 Mechanical Ventilator 10.0 50 220/21 06:00 16 122/83 Mechanical Ventilator 50 220/21 06:00 16 122/83 Mechanical Ventilator 50 220/21 06:00 82 17 122/83 (96) 97 20/21 05:00 16 99/66 Mechanical Ventilator 50 2/21 05:00 16 99/66 Mechanical Ventilator 50 2/21 05:00 76 16 99/66 (77) 97 08/08/20 04:30 81 19 115/81 (92) 96 08/08/20 04:00 50 08/08/20 04:00 16 102/70 Mechanical Ventilator 50 08/08/20 04:00 16 102/72 Mechanical Ventilator 50 08/08/20 04:00 98.7 73 16 102/70 (81) 100 08/08/20 04:00 Mechanical Ventilator 08/08/20 04:00 84 08/08/20 03:57 76 16 50 08/08/20 03:30 76 16 98/69 (79) 97 08/08/20 03:00 76 16 103/66 (78) 96 08/08/20 03:00 16 98/69 Mechanical Ventilator 50 08/08/20 03:00 16 98/69 Mechanical Ventilator 50 08/08/20 02:30 78 16 101/71 (81) 96 08/08/20 02:00 79 16 99/67 (78) 96 08/08/20 02:00 16 101/71 Mechanical Ventilator 50 08/08/20 01:30 79 17 91/68 (76) 96 08/08/20 01:00 16 91/68 Mechanical Ventilator 50 08/08/20 01:00 16 91/68 Mechanical Ventilator 50 08/08/20 01:00 81 16 98/66 (77) 96 08/08/20 00:00 84 08/08/20 00:00 16 96/64 Mechanical Ventilator 50 08/08/20 00:00 16 96/64 Mechanical Ventilator 50 08/08/20 00:00 50 08/08/20 00:00 Mechanical Ventilator 08/08/20 00:00 98.0 85 16 103/69 (80) 95 08/07/20 23:30 86 17 101/69 (80) 95 08/07/20 23:03 89 16 50 08/07/20 23:00 90 23 101/72 (82) 94 08/07/20 23:00 16 101/69 Mechanical Ventilator 50 08/07/20 22:51 23 100/71 Mechanical Ventilator 10.0 50 08/07/20 22:30 89 23 100/71 (81) 95 08/07/20 22:00 92 20 105/71 (82) 98 08/07/20 21:30 90 21 109/69 (82) 95 08/07/20 21:00 90 23 108/77 (87) 95 08/07/20 20:30 96 28 114/73 (87) 98 08/07/20 20:00 82 08/07/20 20:00 Mechanical Ventilator 08/07/20 20:00 50 08/07/20 20:00 16 113/73 Mechanical Ventilator 50 08/07/20 20:00 22 113/73 Mechanical Ventilator 50 08/07/20 20:00 98.8 91 22 113/73 (86) 95 08/07/20 19:30 87 27 106/72 (83) 96 08/07/20 19:00 89 16 100/68 (79) 96 08/07/20 19:00 16 106/72 Mechanical Ventilator 80 08/07/20 19:00 16 106/72 Mechanical Ventilator 80 08/07/20 18:38 88 16 50 08/07/20 18:15 89 18 97 08/07/20 18:09 96 25 121/78 (92) 94 08/07/20 18:00 83 20 125/66 (85) 95 08/07/20 17:45 80 30 95 08/07/20 17:30 83 26 108/59 (75) 95 08/07/20 17:15 81 19 95 08/07/20 17:00 80 24 106/63 (77) 95 Intake and Output 08/07/20 08/08/20 19:00 07:00 Intake Total 2020.708 ml 2291.300 ml Output Total 1010 ml 375 ml Balance 1010.708 ml 1916.300 ml Free Water 100 ml IV Total 1880.708 ml 1871.300 ml Tube Feeding 140 ml 320 ml Output Urine Total 1010 ml 375 ml Laboratory Tests Test 08/08/20 06:20 08/08/20 10:10 08/08/20 10:29 White Blood Count 9.7 K/UL (4.8-10.8) Red Blood Count 3.39 M/UL (4.70-6.10) L Hemoglobin 9.1 G/DL (14.2-18.0) L Hematocrit 30.9 % (42.0-52.0) L Mean Corpuscular Volume 91 FL (80-99) Mean Corpuscular Hemoglobin 26.8 PG (27.0-31.0) L Mean Corpuscular Hemoglobin Concent 29.5 G/DL (32.0-36.0) L Red Cell Distribution Width 13.8 % (11.6-14.8) Platelet Count 226 K/UL (150-450) Mean Platelet Volume 6.5 FL (6.5-10.1) Neutrophils (%) (Auto) % (45.0-75.0) Lymphocytes (%) (Auto) % (20.0-45.0) Monocytes (%) (Auto) % (1.0-10.0) Eosinophils (%) (Auto) % (0.0-3.0) Basophils (%) (Auto) % (0.0-2.0) Differential Total Cells Counted 100 Neutrophils % (Manual) 85 % (45-75) H Lymphocytes % (Manual) 8 % (20-45) L Monocytes % (Manual) 7 % (1-10) Eosinophils % (Manual) 0 % (0-3) Basophils % (Manual) 0 % (0-2) Band Neutrophils 0 % (0-8) Platelet Estimate Adequate Platelet Morphology Normal Hypochromasia 1+ Sodium Level 147 MMOL/L (136-145) H Potassium Level 4.2 MMOL/L (3.5-5.1) Chloride Level 111 MMOL/L (98-107) H Carbon Dioxide Level 30 MMOL/L (21-32) Anion Gap 6 mmol/L (5-15) Blood Urea Nitrogen 20 mg/dL (7-18) H Creatinine 0.7 MG/DL (0.55-1.30) Estimat Glomerular Filtration Rate > 60 mL/min (>60) Glucose Level 175 MG/DL (74-106) H Calcium Level 8.4 MG/DL (8.5-10.1) L Phosphorus Level 1.8 MG/DL (2.5-4.9) L Magnesium Level 2.3 MG/DL (1.8-2.4) Total Bilirubin 0.3 MG/DL (0.2-1.0) Aspartate Amino Transf (AST/SGOT) 21 U/L (15-37) Alanine Aminotransferase (ALT/SGPT) 29 U/L (12-78) Alkaline Phosphatase 58 U/L (46-116) C-Reactive Protein, Quantitative 15.6 mg/dL (0.00-0.90) H Pro-B-Type Natriuretic Peptide 256 pg/mL (0-125) H Total Protein 6.1 G/DL (6.4-8.2) L Albumin 1.9 G/DL (3.4-5.0) L Globulin 4.2 g/dL Albumin/Globulin Ratio 0.5 (1.0-2.7) L Vancomycin Level Trough 12.4 ug/mL (5.0-12.0) H Arterial Blood pH 7.394 (7.350-7.450) Arterial Blood Partial Pressure CO2 51.8 mmHg (35.0-45.0) H Arterial Blood Partial Pressure O2 76.3 mmHg (75.0-100.0) Arterial Blood HCO3 30.9 mmol/L (22.0-26.0) H Arterial Blood Oxygen Saturation 94.7 % (95-100) L Arterial Blood Base Excess 5.2 (-2-2) H Chadwick Test Positive Microbiology Date/Time Source Procedure Growth Status 08/07/20 04:00 Sputum Gram Stain - Final Resulted 08/07/20 04:00 Sputum Sputum Culture - Preliminary NO GROWTH Resulted 08/06/20 03:20 Blood Blood Culture - Preliminary NO GROWTH AFTER 24 HOURS Resulted 08/06/20 03:15 Blood Blood Culture - Preliminary NO GROWTH AFTER 24 HOURS Resulted Objective HEAD AND NECK: Orally intubated LUNGS: Coarse rhonchi. CARDIOVASCULAR: Regular S1 and S2 with no gallop. ABDOMEN: Soft. EXTREMITIES: 1 plus pitting edema. Devyn Magdaleno MD Aug 08, 2020 16:53
--- NOTE | 2020-08-08 17:56 | Internal Med Progress Note ---
Subjective Date of Service: Aug 08, 2020 Physician Name Pablo Hickman Attending Physician Torres Saul MD Current Medications Medications (Trade) Dose Ordered Sig/Armand Route PRN Reason Start Time Stop Time Status Last Admin Dose Admin Acetaminophen (Tylenol) 650 mg Q6H PRN NG Mild Pain (Pain Scale 1-3) 08/08/20 14:00 09/07/20 13:59 Acetaminophen (Tylenol) 650 mg Q6H PRN NG Temp >100.5 08/08/20 14:00 09/07/20 13:59 Albuterol/ Ipratropium (Combivent Respimat) 1 puff Q4H PRN INH Shortness of Breath 08/04/20 10:00 09/03/20 09:59 Albuterol/ Ipratropium (Combivent Respimat) 1 puff Q8HR INH 08/04/20 09:30 09/03/20 09:29 08/06/20 14:00 Cefepime HCl 2 gm/ Dextrose 110 ml @ 220 mls/hr EVERY 12 HOURS IV 08/05/20 21:00 08/12/20 20:59 08/08/20 10:00 Chlorhexidine Gluconate (Maddie-Hex 2%) 1 applic DAILY@2000 TOPIC 08/07/20 20:00 11/05/20 19:59 08/07/20 20:42 Dextrose/Sodium Chloride 1,000 ml @ 75 mls/hr [id number] IV 08/06/20 11:00 09/05/20 10:59 08/08/20 10:07 Enoxaparin Sodium (Lovenox) 60 mg EVERY 12 HOURS SUBQ 08/05/20 21:00 11/03/20 20:59 08/08/20 09:30 Famotidine (Pepcid I.v.) 20 mg Q12HR IVP 08/06/20 11:00 09/05/20 10:59 08/08/20 09:30 Fentanyl Citrate 1000 mcg/Sodium Chloride 100 ml @ 1 mls/hr Q24H IV 08/08/20 16:00 08/10/20 15:59 Gabapentin (Neurontin) 300 mg EVERY 8 HOURS NG 08/08/20 22:00 09/04/20 08:59 Heparin Sodium/ Sodium Chloride (Heparin 1000 units/500ml Premix) 1,000 unit ONCE PRN IV picc line placement 08/07/20 14:30 08/09/20 14:29 Lidocaine HCl (Xylocaine 1% 30ml) 30 ml ONCE PRN INJ picc line placement 08/07/20 14:30 08/09/20 14:29 Lorazepam (Ativan 2mg/ml 1ml) 0.5 mg Q6H PRN IV For Anxiety 08/04/20 21:30 08/11/20 21:29 Methylprednisolone Sodium Succinate (Solu-MEDROL) 40 mg EVERY 6 HOURS IVP 08/05/20 12:00 11/03/20 11:59 08/08/20 17:30 Metronidazole 100 ml @ 100 mls/hr Q8HR IVPB 08/04/20 14:00 08/11/20 13:59 08/08/20 14:19 Midazolam HCl 200 ml @ 0 mls/hr Q24H PRN IV To Patient Comfort 08/05/20 15:30 08/12/20 15:29 08/07/20 22:51 Sodium Phosphate 30 mm/Sodium Chloride 285 ml @ 47.5 mls/hr ONCE ONCE IVPB 08/08/20 12:00 08/08/20 17:59 08/08/20 14:06 Vancomycin HCl 250 ml @ 166.667 mls/hr Q8HR@0400,1200,2000 IVPB 08/08/20 20:00 08/13/20 19:59 Vancomycin HCl ([facility] pharmacy to dose) 1 ea DAILY PRN MISC Per rx protocol 08/04/20 09:15 09/03/20 09:14 Allergies: Coded Allergies: PENICILLINS (Verified Allergy, Unknown, 03/10/20) PHENYTOIN (Verified Allergy, Unknown, 03/10/20) ROS Limited/Unobtainable: Yes Subjective 79 YO M admitted with respiratory distress. Now pneumonia. Cover for Int Med- Dr Saul. ICU. Intubated and sedated Objective Last Vital Signs Date Time Temp Pulse Resp B/P (MAP) Pulse Ox O2 Delivery O2 Flow Rate FiO2 08/08/20 17:00 73 16 103/70 (81) 100 08/08/20 16:00 Mechanical Ventilator 08/08/20 16:00 98.7 08/08/20 16:00 50 08/08/20 06:02 10.0 Laboratory Tests Test 08/08/20 06:20 08/08/20 10:10 08/08/20 10:29 White Blood Count 9.7 K/UL (4.8-10.8) Red Blood Count 3.39 M/UL (4.70-6.10) L Hemoglobin 9.1 G/DL (14.2-18.0) L Hematocrit 30.9 % (42.0-52.0) L Mean Corpuscular Volume 91 FL (80-99) Mean Corpuscular Hemoglobin 26.8 PG (27.0-31.0) L Mean Corpuscular Hemoglobin Concent 29.5 G/DL (32.0-36.0) L Red Cell Distribution Width 13.8 % (11.6-14.8) Platelet Count 226 K/UL (150-450) Mean Platelet Volume 6.5 FL (6.5-10.1) Neutrophils (%) (Auto) % (45.0-75.0) Lymphocytes (%) (Auto) % (20.0-45.0) Monocytes (%) (Auto) % (1.0-10.0) Eosinophils (%) (Auto) % (0.0-3.0) Basophils (%) (Auto) % (0.0-2.0) Differential Total Cells Counted 100 Neutrophils % (Manual) 85 % (45-75) H Lymphocytes % (Manual) 8 % (20-45) L Monocytes % (Manual) 7 % (1-10) Eosinophils % (Manual) 0 % (0-3) Basophils % (Manual) 0 % (0-2) Band Neutrophils 0 % (0-8) Platelet Estimate Adequate Platelet Morphology Normal Hypochromasia 1+ Sodium Level 147 MMOL/L (136-145) H Potassium Level 4.2 MMOL/L (3.5-5.1) Chloride Level 111 MMOL/L (98-107) H Carbon Dioxide Level 30 MMOL/L (21-32) Anion Gap 6 mmol/L (5-15) Blood Urea Nitrogen 20 mg/dL (7-18) H Creatinine 0.7 MG/DL (0.55-1.30) Estimat Glomerular Filtration Rate > 60 mL/min (>60) Glucose Level 175 MG/DL (74-106) H Calcium Level 8.4 MG/DL (8.5-10.1) L Phosphorus Level 1.8 MG/DL (2.5-4.9) L Magnesium Level 2.3 MG/DL (1.8-2.4) Total Bilirubin 0.3 MG/DL (0.2-1.0) Aspartate Amino Transf (AST/SGOT) 21 U/L (15-37) Alanine Aminotransferase (ALT/SGPT) 29 U/L (12-78) Alkaline Phosphatase 58 U/L (46-116) C-Reactive Protein, Quantitative 15.6 mg/dL (0.00-0.90) H Pro-B-Type Natriuretic Peptide 256 pg/mL (0-125) H Total Protein 6.1 G/DL (6.4-8.2) L Albumin 1.9 G/DL (3.4-5.0) L Globulin 4.2 g/dL Albumin/Globulin Ratio 0.5 (1.0-2.7) L Vancomycin Level Trough 12.4 ug/mL (5.0-12.0) H Arterial Blood pH 7.394 (7.350-7.450) Arterial Blood Partial Pressure CO2 51.8 mmHg (35.0-45.0) H Arterial Blood Partial Pressure O2 76.3 mmHg (75.0-100.0) Arterial Blood HCO3 30.9 mmol/L (22.0-26.0) H Arterial Blood Oxygen Saturation 94.7 % (95-100) L Arterial Blood Base Excess 5.2 (-2-2) H Chadwick Test Positive Microbiology Date/Time Source Procedure Growth Status 08/07/20 04:00 Sputum Gram Stain - Final Resulted 08/07/20 04:00 Sputum Sputum Culture - Preliminary NO GROWTH Resulted 08/06/20 03:20 Blood Blood Culture - Preliminary NO GROWTH AFTER 24 HOURS Resulted 08/06/20 03:15 Blood Blood Culture - Preliminary NO GROWTH AFTER 24 HOURS Resulted Intake and Output 08/07/20 08/08/20 19:00 07:00 Intake Total 2020.708 ml 2291.300 ml Output Total 1010 ml 375 ml Balance 1010.708 ml 1916.300 ml Free Water 100 ml IV Total 1880.708 ml 1871.300 ml Tube Feeding 140 ml 320 ml Output Urine Total 1010 ml 375 ml Objective PHYSICAL EXAMINATION: GENERAL: The patient is well-developed, well-nourished male, in moderate respiratory distress. HEENT: Eyes, pupils are equal and responsive to light and accommodation. Extraocular movements are intact. NECK: Supple. No lymphadenopathy. CHEST: Mech vent; Lungs are clear to auscultation bilaterally without wheezes or rales. CARDIOVASCULAR: Regular rhythm and rate. S1-S2 are normal without murmurs, rubs, or gallops. ABDOMEN: Soft, nontender, and nondistended. Positive bowel sounds. No evidence of hepatosplenomegaly. Currently, no rebound or guarding noted. EXTREMITIES: Negative for clubbing, cyanosis, or edema. RECTAL/GENITAL: Not performed. NEUROLOGIC: Cranial nerves II through XII are grossly intact without focal deficits. Motor strength is 5/5 bilaterally. Deep tendon reflexes are 2+ plantar. Assessment/Plan Assessment/Plan ASSESSMENT: This is an 79-year-old male with. 1. Respiratory failure-intubated 08/05/20; mech vent 2. Right-sided pneumonia. 3. Hypertension. 4. Congestive heart failure. 5. Chronic obstructive pulmonary disease. 6. Anemia. 7. Cerebrovascular disease, status post cerebrovascular accident. 8. Peripheral vascular disease. 9. Gastroesophageal reflux disease. 10. Major depression. 11. Seizure disorder. 12. History of COVID-19 positive in February 2020. 13. Benign prostatic hypertrophy. TREATMENT: 1. Respiratory failure/right-sided pneumonia pulmonary consultation= Dr. Micha Schneider. ABX= vancomycin and cefepime. Infectious Disease= Dr. Urrutia. Follow recommendations of Infectious Disease and Pulmonary. 2. Hypertension. The patient is currently hypotensive. 3. Congestive heart failure. 4. Chronic obstructive pulmonary disease. Continue DuoNeb as above. 5. Anemia. 6. Cerebrovascular disease. 7. Peripheral vascular disease. 8. Gastroesophageal reflux disease. Continue famotidine as above. 9. Major depression. Seizure disorder. 10. COVID-19 positive, history in February 2020. 11. Benign prostatic hypertrophy. Continue Flomax as above. Pablo Hickman MD Aug 08, 2020 17:56
[2020-08-08] MEDS: Versed 100mg/NS 200ml 200 ML IV PRN (18:59)
--- NOTE | 2020-08-08 19:30 | NUR ---
NURSE NOTES: Pt report received from Nicole Urrutia RN. pt condition remains unchanged. pt is sedated neuro roa, no acute neuro abnormalities noted. pt is on gambling monitor showing NSR, 100s HR. pt is oral intubated/ vented, sating 99% O2, no acute resp distress noted. pt bed is low, locked, armed, call light within reach, will follow plan of care.
[2020-08-08] MEDS: Vancomycin 1.25gm/250ml Premix IVPB SCH (20:18)
[2020-08-08] MEDS: Dyna-Hex 2% Top Sol 2oz TOPIC SCH (20:19)
--- NOTE | 2020-08-08 21:15 | NUR ---
NURSE NOTES: pts 9PM meds passed. vital signs stable.
--- NOTE | 2020-08-08 23:40 | NUR ---
NURSE NOTES: pt sedated per doctor order/ protocol. vital signs stable.
[2020-08-09] VITALS (56 sets, daily range): BP systolic 95–154; BP diastolic 64–101
--- NOTE | 2020-08-09 01:20 | NUR ---
NURSE NOTES: pt turned cleaned and repositioned. vital signs stable.
--- NOTE | 2020-08-09 03:50 | NUR ---
NURSE NOTES: IV Drips running per doctor order/ protocol. no change in condition. pt remains sedated. vital signs stable.
[2020-08-09] MEDS: Vancomycin 1.25gm/250ml Premix IVPB SCH ×3 (04:28→20:29)
--- NOTE | 2020-08-09 05:40 | NUR ---
NURSE NOTES: AM meds passed. vital signs stable. no change in condition.
[2020-08-09] MEDS: D5 1/2NS 1,000 ML IV SCH ×2 (05:47→20:32)
[2020-08-09] MEDS: Solu-MEDROL 40mg Inj IVP SCH ×4 (05:50→23:35)
[2020-08-09] MEDS: Gabapentin 300 MG/6 ML Soln NG SCH ×3 (05:50→21:51)
--- NOTE | 2020-08-09 07:18 | NUR ---
NURSE HAND-OFF REPORT: Latest Vital Signs: Temperature 98.3 , Pulse 72 , B/P 105 /74 , Respiratory Rate 16 , O2 SAT 100 , Mechanical Ventilator, O2 Flow Rate . Vital Sign Comment: [stable] EKG Rhythm: Sinus Rhythm Rhythm change?: N MD Notified?: - MD Response: Latest Castro Fall Score: 50 Fall Risk: High Risk Safety Measures: Call light Within Reach, Bed Alarm Zone 2, Side Rails Side Rails x2, Bed position Low and Locked. Fall Precautions: Yellow Socks Yellow Gown Door Sign Patient Fall Education Report given to [Grzegorz Bird RN].
[2020-08-09 08:08] LABS: BASOPHILS % (AUTO) 0.8 % (0.0-2.0); HEMATOCRIT 28.6 % (42.0-52.0); HEMOGLOBIN 8.6 G/DL (14.2-18.0); LYMPHOCYTES % (AUTO) 13.1 % (20.0-45.0); MEAN CORPUSCULAR VOLUME 90 FL (80-99); MONOCYTES % (AUTO) 8.3 % (1.0-10.0); NEUTROPHILS % (AUTO) 77.8 % (45.0-75.0); PLATELET COUNT 186 K/UL (150-450); RED BLOOD COUNT 3.19 M/UL (4.70-6.10); RED CELL DISTRIBUTION WIDTH 13.9 % (11.6-14.8); WHITE BLOOD COUNT 5.1 K/UL (4.8-10.8)
--- NOTE | 2020-08-09 08:20 | Pulmonology Progress Note ---
Subjective ROS Limited/Unobtainable: Yes Interval Events: Intubated 08/05/20 Constitutional: Reports: fatigue, other - + vent and + 4 mcqs pressors; Denies: fever HEENT: Repors: no symptoms Respiratory: Reports: shortness of breath Cardiovascular: Reports: no symptoms Gastrointestinal/Abdominal: Denies: nausea, vomiting, diarrhea Genitourinary: Reports: no symptoms Neurologic: Reports: no symptoms Psychiatric: Reports: other - NA Skin: Denies: rash Musculoskeletal: Reports: other - NA Allergies: Coded Allergies: PENICILLINS (Verified Allergy, Unknown, 03/10/20) PHENYTOIN (Verified Allergy, Unknown, 03/10/20) Objective Last 24 Hour Vital Signs Date Time Temp Pulse Resp B/P (MAP) Pulse Ox O2 Delivery O2 Flow Rate FiO2 08/09/20 08:00 40 08/09/20 08:00 85 27 144/77 (99) 100 08/09/20 08:00 Mechanical Ventilator 08/09/20 07:45 74 16 109/71 (84) 100 08/09/20 07:30 72 16 109/65 (80) 100 08/09/20 07:15 71 16 104/64 (77) 100 08/09/20 07:05 72 16 40 08/09/20 07:00 70 15 105/72 (83) 100 08/09/20 07:00 70 15 105/72 (83) 100 08/09/20 07:00 20 105/74 Mechanical Ventilator 40 08/09/20 07:00 20 105/72 Mechanical Ventilator 40 08/09/20 06:30 86 20 08/09/20 06:00 20 121/83 Mechanical Ventilator 40 08/09/20 06:00 19 121/83 Mechanical Ventilator 40 08/09/20 06:00 72 16 95/68 (77) 100 08/09/20 05:00 71 16 99/70 (80) 100 08/09/20 05:00 20 113/70 Mechanical Ventilator 40 08/09/20 05:00 20 133/70 Mechanical Ventilator 40 08/09/20 04:00 50 08/09/20 04:00 20 113/74 Non-Rebreather 40 08/09/20 04:00 20 113/74 Mechanical Ventilator 40 08/09/20 04:00 Mechanical Ventilator 08/09/20 04:00 98.3 74 16 133/72 (92) 98 08/09/20 04:00 71 08/09/20 03:00 71 16 95/68 (77) 100 08/09/20 03:00 19 124/86 Mechanical Ventilator 40 08/09/20 03:00 20 140/81 Mechanical Ventilator 40 08/09/20 02:00 19 134/85 Mechanical Ventilator 40 08/09/20 02:00 20 133/76 40 08/09/20 02:00 71 16 103/65 (78) 100 08/09/20 01:09 72 16 40 08/09/20 01:00 20 118/74 Mechanical Ventilator 40 08/09/20 01:00 19 110/80 Mechanical Ventilator 40 08/09/20 01:00 71 16 107/67 (80) 100 08/09/20 00:00 73 08/09/20 00:00 Mechanical Ventilator 08/09/20 00:00 50 08/09/20 00:00 20 109/80 Mechanical Ventilator 40 08/09/20 00:00 19 123/75 Mechanical Ventilator 40 08/09/20 00:00 98.5 73 16 102/67 (79) 100 08/08/20 23:00 76 17 111/70 (84) 100 08/08/20 23:00 19 135/72 Mechanical Ventilator 40 08/08/20 23:00 20 122/79 Mechanical Ventilator 40 08/08/20 22:00 75 16 106/68 (81) 100 08/08/20 22:00 18 122/81 40 08/08/20 22:00 19 117/80 Endotracheal Tube 40 08/08/20 21:00 78 18 96/70 (79) 100 08/08/20 21:00 20 146/73 Endotracheal Tube 40 08/08/20 21:00 20 117/70 Endotracheal Tube 40 08/08/20 21:00 50 08/08/20 20:00 79 08/08/20 20:00 98.6 74 16 116/70 (85) 100 08/08/20 20:00 19 130/86 Endotracheal Tube 40 08/08/20 20:00 19 138/67 Endotracheal Tube 40 08/08/20 20:00 Mechanical Ventilator 08/08/20 20:00 50 08/08/20 19:10 72 16 40 08/08/20 19:00 72 16 103/71 (82) 100 2/20/21 19:00 16 112/71 Mechanical Ventilator 50 2/21 19:00 18 124/73 40 220/21 18:59 16 112/71 Mechanical Ventilator 50 2/21 18:00 72 16 101/68 (79) 100 2/20/21 18:00 74 16 106/71 (83) 100 220/21 18:00 16 101/68 Mechanical Ventilator 50 08/08/21 18:00 16 101/68 Mechanical Ventilator 50 21 17:30 74 16 108/68 (81) 100 2/21 17:00 73 16 103/70 (81) 100 08/08/21 17:00 16 103/70 Mechanical Ventilator 50 08/08/20 17:00 16 103/70 Mechanical Ventilator 50 21 16:30 73 16 97/68 (78) 100 08/08/20 16:15 74 16 103/69 (80) 100 08/08/ 16:00 Mechanical Ventilator 08/08/20 16:00 98.7 72 16 102/67 (79) 100 08/08/20 16:00 50 21 16:00 16 102/67 Mechanical Ventilator 50 08/08/20 16:00 16 102/67 Mechanical Ventilator 50 21 16:00 72 08/08/ 15:45 16 101/65 Mechanical Ventilator 50 08/08/20 15:45 73 16 101/65 (77) 100 08/08/ 15:30 73 16 100/62 (75) 100 08/08/ 15:15 69 16 129/69 (89) 97 08/08/21 15:14 68 16 50 08/08/21 15:00 70 16 117/73 (88) 97 20/21 15:00 16 117/73 Mechanical Ventilator 50 08/08/21 15:00 16 117/73 Mechanical Ventilator 50 08/08/21 14:45 70 16 111/71 (84) 96 08/08/21 14:45 16 111/71 Non-Rebreather 50 21 14:45 16 111/71 Mechanical Ventilator 50 08/08/21 14:30 70 16 115/69 (84) 97 08/08/21 14:00 16 118/79 Mechanical Ventilator 50 21 14:00 16 118/79 Mechanical Ventilator 50 08/08/20 14:00 71 16 118/79 (92) 97 08/08/20 13:00 72 16 104/72 (83) 97 08/08/20 13:00 16 104/72 Mechanical Ventilator 50 08/08/20 13:00 16 104/72 Mechanical Ventilator 50 08/08/20 12:00 98.5 74 16 103/69 (80) 97 08/08/20 12:00 50 08/08/20 12:00 Mechanical Ventilator 08/08/20 12:00 16 103/69 Mechanical Ventilator 50 08/08/20 12:00 16 103/69 Mechanical Ventilator 50 08/08/20 11:39 78 08/08/20 11:00 78 16 108/68 (81) 97 08/08/20 11:00 16 108/68 Mechanical Ventilator 50 08/08/20 11:00 16 108/68 Mechanical Ventilator 50 08/08/20 10:42 81 16 50 08/08/20 10:30 83 15 102/69 (80) 97 08/08/20 10:00 16 109/71 Mechanical Ventilator 50 08/08/20 10:00 16 109/71 Mechanical Ventilator 50 08/08/20 10:00 78 16 109/71 (84) 97 08/08/20 09:00 16 109/73 Mechanical Ventilator 50 08/08/20 09:00 16 109/73 Mechanical Ventilator 50 08/08/20 09:00 76 16 109/73 (85) 97 Intake and Output 08/08/20 08/09/20 19:00 07:00 Intake Total 2083.600 ml 1874.500 ml Output Total 510 ml 540 ml Balance 1573.600 ml 1334.500 ml IV Total 1723.600 ml 1514.500 ml Tube Feeding 360 ml 360 ml Output Urine Total 510 ml 540 ml General Appearance: no acute distress HEENT: normocephalic Respiratory: chest wall non-tender, lungs clear Cardiovascular: normal peripheral pulses, normal rate Abdomen: normal bowel sounds Extremities: no cyanosis Microbiology Date/Time Source Procedure Growth Status 08/07/20 04:00 Sputum Gram Stain - Final Resulted 08/07/20 04:00 Sputum Sputum Culture - Preliminary NO GROWTH AFTER 24 HOURS Resulted Laboratory Tests 08/08/20 10:10: Vancomycin Level Trough 12.4H 08/08/20 10:29: Arterial Blood pH 7.394, Arterial Blood Partial Pressure CO2 51.8H, Arterial Blood Partial Pressure O2 76.3, Arterial Blood HCO3 30.9H, Arterial Blood Oxygen Saturation 94.7L, Arterial Blood Base Excess 5.2H, Chadwick Test Positive 08/09/20 06:55: White Blood Count 5.1, Red Blood Count 3.19L, Hemoglobin 8.6L, Hematocrit 28.6L, Mean Corpuscular Volume 90, Mean Corpuscular Hemoglobin 27.1, Mean Corpuscular Hemoglobin Concent 30.2L, Red Cell Distribution Width 13.9, Platelet Count 186, Mean Platelet Volume 6.7, Neutrophils (%) (Auto) 77.8H, Lymphocytes (%) (Auto) 13.1L, Monocytes (%) (Auto) 8.3, Eosinophils (%) (Auto) 0.0, Basophils (%) (Auto) 0.8, Sodium Level [Pending], Potassium Level [Pending], Chloride Level [Pending], Carbon Dioxide Level [Pending], Blood Urea Nitrogen [Pending], Creatinine [Pending], Estimat Glomerular Filtration Rate [Pending], Glucose Level [Pending], Calcium Level [Pending] Current Medications Medications (Trade) Dose Ordered Sig/Armand Route PRN Reason Start Time Stop Time Status Last Admin Dose Admin Acetaminophen (Tylenol) 650 mg Q6H PRN NG Mild Pain (Pain Scale 1-3) 08/08/20 14:00 09/07/20 13:59 Acetaminophen (Tylenol) 650 mg Q6H PRN NG Temp >100.5 08/08/20 14:00 09/07/20 13:59 Albuterol/ Ipratropium (Combivent Respimat) 1 puff Q4H PRN INH Shortness of Breath 08/04/20 10:00 09/03/20 09:59 Albuterol/ Ipratropium (Combivent Respimat) 1 puff Q8HR INH 08/04/20 09:30 09/03/20 09:29 08/06/20 14:00 Cefepime HCl 2 gm/ Dextrose 110 ml @ 220 mls/hr EVERY 12 HOURS IV 08/05/20 21:00 08/12/20 20:59 08/08/20 20:18 Chlorhexidine Gluconate (Maddie-Hex 2%) 1 applic DAILY@2000 TOPIC 08/07/20 20:00 11/05/20 19:59 08/08/20 20:19 Dextrose/Sodium Chloride 1,000 ml @ 75 mls/hr [id number] IV 08/06/20 11:00 09/05/20 10:59 08/09/20 05:47 Enoxaparin Sodium (Lovenox) 60 mg EVERY 12 HOURS SUBQ 08/05/20 21:00 11/03/20 20:59 08/08/20 20:20 Famotidine (Pepcid I.v.) 20 mg Q12HR IVP 08/06/20 11:00 09/05/20 10:59 08/08/20 20:19 Fentanyl Citrate 1000 mcg/Sodium Chloride 100 ml @ 1 mls/hr Q24H IV 08/08/20 16:00 08/10/20 15:59 08/08/20 19:00 Gabapentin (Neurontin) 300 mg EVERY 8 HOURS NG 08/08/20 22:00 09/04/20 08:59 08/09/20 05:50 Heparin Sodium/ Sodium Chloride (Heparin 1000 units/500ml Premix) 1,000 unit ONCE PRN IV picc line placement 08/07/20 14:30 08/09/20 14:29 Lidocaine HCl (Xylocaine 1% 30ml) 30 ml ONCE PRN INJ picc line placement 08/07/20 14:30 08/09/20 14:29 Lorazepam (Ativan 2mg/ml 1ml) 0.5 mg Q6H PRN IV For Anxiety 08/04/20 21:30 08/11/20 21:29 Methylprednisolone Sodium Succinate (Solu-MEDROL) 40 mg EVERY 6 HOURS IVP 08/05/20 12:00 11/03/20 11:59 08/09/20 05:50 Metronidazole 100 ml @ 100 mls/hr Q8HR IVPB 08/04/20 14:00 08/11/20 13:59 08/09/20 05:50 Midazolam HCl 200 ml @ 0 mls/hr Q24H PRN IV To Patient Comfort 08/05/20 15:30 08/12/20 15:29 08/08/20 18:59 Vancomycin HCl 250 ml @ 166.667 mls/hr Q8HR@0400,1200,2000 IVPB 08/08/20 20:00 08/13/20 19:59 08/09/20 04:28 Vancomycin HCl ([facility] pharmacy to dose) 1 ea DAILY PRN MISC Per rx protocol 08/04/20 09:15 09/03/20 09:14 Assessment/Plan Assessment/Plan 1. UTI -On empiric antibiotics -Follow-up UCx negative (08/03) 2. Pneumonia -On broad-spectrum antibiotics - CXR concerning for volume loss -> await CT chest 3. COPD exacerbation -Now intubated 4. Respiratory distress - Continue steroids 5. History of seizures -Risk of aspiration -Monitor for seizure activity 6. Elevated CRP -D-dimer wnl -His outpatient medications include Eliquis (hx of A fib?) - Continue Eliquis 7. Monitor carefully in ICU S/p intubation On Levophed; low dose; will attempt to dc Continue AC mode; will begin weaning FiO2 90->80 ->40% PEEP 5 Micha Schneider MD Aug 09, 2020 08:20
[2020-08-09 08:27] LABS: ANION GAP 5 mmol/L (5-15); BLOOD UREA NITROGEN 20 mg/dL (7-18); CALCIUM 8.3 MG/DL (8.5-10.1); CARBON DIOXIDE 31 MMOL/L (21-32); CHLORIDE 109 MMOL/L (98-107); CREATININE 0.8 MG/DL (0.55-1.30); POTASSIUM 3.9 MMOL/L (3.5-5.1); SODIUM 145 MMOL/L (136-145)
[2020-08-09] MEDS: Cefepime 2gm/D5W 110ml IV SCH ×4 (09:00→21:00)
[2020-08-09] MEDS: Enoxaparin 60mg Inj SUBQ SCH ×2 (09:00→20:32)
--- NOTE | 2020-08-09 09:40 | Diagnostic Imaging Report ---
EXAM: XR Chest, 1 View CLINICAL HISTORY: INFECT TECHNIQUE: Frontal view of the chest. COMPARISON: Chest radiograph August 06, 2020. FINDINGS/IMPRESSION: Stable endotracheal tube. Opacity within the right lower lung field consistent with infiltrate, which is mild improving. Mild-moderate pleural effusion which is mildly worsening. No pneumothorax. The heart size is within normal limit. Calcified, tortuous aorta.
--- NOTE | 2020-08-09 10:26 | NUR ---
RD ASSESSMENT & RECOMMENDATIONS SEE CARE ACTIVITY FOR COMPLETE ASSESSMENT DAILY ESTIMATED NEEDS: Needs based on Critical Care/ 75.7kg abw 22-28 kcals/kg 8419-6589 total kcals 1.2-2 g protein/kg 90-151 g total protein 25-30 mL/kg 0885-8220 total fluid mLs NUTRITION DIAGNOSIS: Swallowing difficulty R/T respiratory failure as evidenced by pt orally intubated, sedated, now off pressor support, now on OGT feeds. CURRENT TF:Now Glucerna 1.5 goal of 30ml/hr ENTERAL NUTRITION RECOMMENDATIONS: WHEN HEMODYNAMICALLY STABLE: Vital AF 1.2 @ goal of 60ml/hr x 24 hrs to provide 1440ml, 1728kcal, 108g prot, 1168ml free water * FEED WITH HEMODYNAMIC STABILITY -> Initiate Vital AF 1.2 @ 10ml/hr x 6hrs, advance 10ml q 6-8 hrs as tolerated to goal rate -> HOB over 30 degrees/ water flush 120ml q 4hrs without IVF WITHOUT HEMODYNAMIC STABILITY, rec trophic feeding of Vital AF @10ml/hr to maintain gut integrity (if able to keep HOB > 30 degrees) ADDITIONAL RECOMMENDATIONS: 1) Calibrated bedscale wts 2) Monitor hemodynamic stability: NE @ 10mcg 3) Consider IV change to D5: Na trending up, to prevent hypoglycemia 4) Monitor lytes, replete as needed 5) rec niss coverage for improved glycemic control .
--- NOTE | 2020-08-09 12:59 | Nephrology Progress Note ---
Assessment/Plan Problem List: (1) Oliguria (2) Electrolyte imbalance (3) Pneumonia (4) Respiratory failure with hypoxia (5) Pneumonia due to COVID-19 virus (6) Seizure disorder (7) Anemia Assessment Sepsis, respiratory failure Pneumonia and possible aspiration. Questionable COVID-19 infection UTI Abnormal electrolytes Questionable CHF Anemia Plan August 09: Full code. Intubated on ventilator. FiO2 40%. Labs reviewed. Stable from renal standpoint of view. August 08: Labs reviewed. Renal parameters stable. Abnormal electrolytes addressed. Remains full code. FiO2 50%. Continue per consultants. Discussed with RN. August 07: Labs reviewed. K Phos IV given. Patient intubated. Full code. FiO2 60%. Medication list reviewed. Continue per consultants. Previously: Optimize pulmonary status Optimize cardiac status Monitor renal parameters, urine output, electrolytes Change IV to half-normal saline Anemia mansfield Insert NG tube and start feeding Per orders Subjective ROS Limited/Unobtainable: Yes Objective Objective Last 24 Hour Vital Signs Date Time Temp Pulse Resp B/P (MAP) Pulse Ox O2 Delivery O2 Flow Rate FiO2 08/09/20 11:00 97 26 136/97 (110) 100 08/09/20 10:45 99 25 136/97 (110) 100 08/09/20 10:34 97 19 40 08/09/20 10:30 97 20 141/90 (107) 100 08/09/20 10:15 99 24 140/88 (105) 100 08/09/20 10:00 97 25 145/85 (105) 100 08/09/20 10:00 97 25 100 08/09/20 09:45 97 27 146/89 (108) 100 08/09/20 09:30 96 24 129/88 (102) 100 08/09/20 09:28 97 22 100 Mechanical Ventilator 40 08/09/20 09:23 101 26 40 08/09/20 09:15 100 30 143/86 (105) 100 08/09/20 09:10 40 08/09/20 09:00 91 33 144/83 (103) 100 08/09/20 08:35 100 08/09/20 08:30 40 08/09/20 08:30 85 16 40 40 08/09/20 08:00 40 08/09/20 08:00 85 27 144/77 (99) 100 08/09/20 08:00 83 08/09/20 08:00 Mechanical Ventilator 08/09/20 07:45 74 16 109/71 (84) 100 08/09/20 07:30 72 16 109/65 (80) 100 08/09/20 07:15 71 16 104/64 (77) 100 08/09/20 07:05 72 16 40 08/09/20 07:00 70 15 105/72 (83) 100 08/09/20 07:00 70 15 105/72 (83) 100 08/09/20 07:00 20 105/74 Mechanical Ventilator 40 08/09/20 07:00 20 105/72 Mechanical Ventilator 40 08/09/20 06:30 86 20 08/09/20 06:00 20 121/83 Mechanical Ventilator 40 08/09/20 06:00 19 121/83 Mechanical Ventilator 40 08/09/20 06:00 72 16 95/68 (77) 100 08/09/20 05:00 71 16 99/70 (80) 100 08/09/20 05:00 20 113/70 Mechanical Ventilator 40 08/09/20 05:00 20 133/70 Mechanical Ventilator 40 08/09/20 04:00 50 08/09/20 04:00 20 113/74 Non-Rebreather 40 08/09/20 04:00 20 113/74 Mechanical Ventilator 40 08/09/20 04:00 Mechanical Ventilator 08/09/20 04:00 98.3 74 16 133/72 (92) 98 08/09/20 04:00 71 08/09/20 03:00 71 16 95/68 (77) 100 08/09/20 03:00 19 124/86 Mechanical Ventilator 40 08/09/20 03:00 20 140/81 Mechanical Ventilator 40 08/09/20 02:00 19 134/85 Mechanical Ventilator 40 08/09/20 02:00 20 133/76 40 08/09/20 02:00 71 16 103/65 (78) 100 08/09/20 01:09 72 16 40 08/09/20 01:00 20 118/74 Mechanical Ventilator 40 08/09/20 01:00 19 110/80 Mechanical Ventilator 40 08/09/20 01:00 71 16 107/67 (80) 100 08/09/20 00:00 73 08/09/20 00:00 Mechanical Ventilator 08/09/20 00:00 50 08/09/20 00:00 20 109/80 Mechanical Ventilator 40 08/09/20 00:00 19 123/75 Mechanical Ventilator 40 08/09/20 00:00 98.5 73 16 102/67 (79) 100 08/08/20 23:00 76 17 111/70 (84) 100 08/08/20 23:00 19 135/72 Mechanical Ventilator 40 08/08/20 23:00 20 122/79 Mechanical Ventilator 40 08/08/20 22:00 75 16 106/68 (81) 100 08/08/20 22:00 18 122/81 40 08/08/20 22:00 19 117/80 Endotracheal Tube 40 08/08/20 21:00 78 18 96/70 (79) 100 08/08/20 21:00 20 146/73 Endotracheal Tube 40 08/08/20 21:00 20 117/70 Endotracheal Tube 40 08/08/20 21:00 50 08/08/20 20:00 79 08/08/20 20:00 98.6 74 16 116/70 (85) 100 08/08/20 20:00 19 130/86 Endotracheal Tube 40 08/08/20 20:00 19 138/67 Endotracheal Tube 40 08/08/20 20:00 Mechanical Ventilator 08/08/20 20:00 50 08/08/20 19:10 72 16 40 08/08/20 19:00 72 16 103/71 (82) 100 08/08/20 19:00 16 112/71 Mechanical Ventilator 50 08/08/20 19:00 18 124/73 40 08/08/20 18:59 16 112/71 Mechanical Ventilator 50 08/08/20 18:00 72 16 101/68 (79) 100 08/08/20 18:00 74 16 106/71 (83) 100 08/08/20 18:00 16 101/68 Mechanical Ventilator 50 08/08/20 18:00 16 101/68 Mechanical Ventilator 50 08/08/20 17:30 74 16 108/68 (81) 100 08/08/20 17:00 73 16 103/70 (81) 100 08/08/20 17:00 16 103/70 Mechanical Ventilator 50 08/08/20 17:00 16 103/70 Mechanical Ventilator 50 08/08/20 16:30 73 16 97/68 (78) 100 2/20/21 16:15 74 16 103/69 (80) 100 08/08/20 16:00 Mechanical Ventilator 08/08/20 16:00 98.7 72 16 102/67 (79) 100 08/08/20 16:00 50 08/08/20 16:00 16 102/67 Mechanical Ventilator 50 08/08/20 16:00 16 102/67 Mechanical Ventilator 50 08/08/20 16:00 72 08/08/20 15:45 16 101/65 Mechanical Ventilator 50 08/08/20 15:45 73 16 101/65 (77) 100 08/08/20 15:30 73 16 100/62 (75) 100 08/08/20 15:15 69 16 129/69 (89) 97 08/08/20 15:14 68 16 50 08/08/20 15:00 70 16 117/73 (88) 97 08/08/20 15:00 16 117/73 Mechanical Ventilator 50 08/08/20 15:00 16 117/73 Mechanical Ventilator 50 08/08/20 14:45 70 16 111/71 (84) 96 08/08/20 14:45 16 111/71 Non-Rebreather 50 08/08/20 14:45 16 111/71 Mechanical Ventilator 50 08/08/20 14:30 70 16 115/69 (84) 97 08/08/20 14:00 16 118/79 Mechanical Ventilator 50 08/08/20 14:00 16 118/79 Mechanical Ventilator 50 08/08/20 14:00 71 16 118/79 (92) 97 08/08/20 13:00 72 16 104/72 (83) 97 08/08/20 13:00 16 104/72 Mechanical Ventilator 50 08/08/20 13:00 16 104/72 Mechanical Ventilator 50 Intake and Output 08/08/20 08/09/20 19:00 07:00 Intake Total 2083.600 ml 1874.500 ml Output Total 510 ml 540 ml Balance 1573.600 ml 1334.500 ml IV Total 1723.600 ml 1514.500 ml Tube Feeding 360 ml 360 ml Output Urine Total 510 ml 540 ml Current Medications Medications (Trade) Dose Ordered Sig/Armand Route PRN Reason Start Time Stop Time Status Last Admin Dose Admin Acetaminophen (Tylenol) 650 mg Q6H PRN NG Mild Pain (Pain Scale 1-3) 08/08/20 14:00 09/07/20 13:59 Acetaminophen (Tylenol) 650 mg Q6H PRN NG Temp >100.5 08/08/20 14:00 09/07/20 13:59 Albuterol/ Ipratropium (Combivent Respimat) 1 puff Q4H PRN INH Shortness of Breath 08/04/20 10:00 09/03/20 09:59 Albuterol/ Ipratropium (Combivent Respimat) 1 puff Q8HR INH 08/04/20 09:30 09/03/20 09:29 08/06/20 14:00 Cefepime HCl 2 gm/ Dextrose 110 ml @ 220 mls/hr EVERY 12 HOURS IV 08/05/20 21:00 08/12/20 20:59 08/09/20 09:00 Chlorhexidine Gluconate (Maddie-Hex 2%) 1 applic DAILY@2000 TOPIC 08/07/20 20:00 11/05/20 19:59 08/08/20 20:19 Dextrose/Sodium Chloride 1,000 ml @ 75 mls/hr [id number] IV 08/06/20 11:00 09/05/20 10:59 08/09/20 05:47 Enoxaparin Sodium (Lovenox) 60 mg EVERY 12 HOURS SUBQ 08/05/20 21:00 11/03/20 20:59 08/09/20 09:00 Famotidine (Pepcid I.v.) 20 mg Q12HR IVP 08/06/20 11:00 09/05/20 10:59 08/09/20 09:00 Fentanyl Citrate 1000 mcg/Sodium Chloride 100 ml @ 1 mls/hr Q24H IV 08/08/20 16:00 08/10/20 15:59 08/08/20 19:00 Gabapentin (Neurontin) 300 mg EVERY 8 HOURS NG 08/08/20 22:00 09/04/20 08:59 08/09/20 05:50 Heparin Sodium/ Sodium Chloride (Heparin 1000 units/500ml Premix) 1,000 unit ONCE PRN IV picc line placement 08/07/20 14:30 08/09/20 14:29 Lidocaine HCl (Xylocaine 1% 30ml) 30 ml ONCE PRN INJ picc line placement 08/07/20 14:30 08/09/20 14:29 Lorazepam (Ativan 2mg/ml 1ml) 0.5 mg Q6H PRN IV For Anxiety 08/04/20 21:30 08/11/20 21:29 Methylprednisolone Sodium Succinate (Solu-MEDROL) 40 mg EVERY 6 HOURS IVP 08/05/20 12:00 11/03/20 11:59 08/09/20 05:50 Metronidazole 100 ml @ 100 mls/hr Q8HR IVPB 08/04/20 14:00 08/11/20 13:59 08/09/20 05:50 Midazolam HCl 200 ml @ 0 mls/hr Q24H PRN IV To Patient Comfort 08/05/20 15:30 08/12/20 15:29 08/08/20 18:59 Vancomycin HCl 250 ml @ 166.667 mls/hr Q8HR@0400,1200,2000 IVPB 08/08/20 20:00 08/13/20 19:59 08/09/20 04:28 Vancomycin HCl ([facility] pharmacy to dose) 1 ea DAILY PRN MISC Per rx protocol 08/04/20 09:15 09/03/20 09:14 Laboratory Tests 08/09/20 06:55: White Blood Count 5.1, Red Blood Count 3.19L, Hemoglobin 8.6L, Hematocrit 28.6L, Mean Corpuscular Volume 90, Mean Corpuscular Hemoglobin 27.1, Mean Corpuscular Hemoglobin Concent 30.2L, Red Cell Distribution Width 13.9, Platelet Count 186, Mean Platelet Volume 6.7, Neutrophils (%) (Auto) 77.8H, Lymphocytes (%) (Auto) 13.1L, Monocytes (%) (Auto) 8.3, Eosinophils (%) (Auto) 0.0, Basophils (%) (Auto) 0.8, Sodium Level 145, Potassium Level 3.9, Chloride Level 109H, Carbon Dioxide Level 31, Anion Gap 5, Blood Urea Nitrogen 20H, Creatinine 0.8, Estimat Glomerular Filtration Rate > 60, Glucose Level 155H, Calcium Level 8.3L 08/09/20 09:30: Arterial Blood pH 7.450, Arterial Blood Partial Pressure CO2 44.0, Arterial Blood Partial Pressure O2 67.4L, Arterial Blood HCO3 29.9H, Arterial Blood Oxygen Saturation 92.5L, Arterial Blood Base Excess 5.3H, Chadwick Test Positive 08/09/20 10:50: Vancomycin Level Trough 13.5H Height (Feet): 6 Height (Inches): 1.00 Weight (Pounds): 190 General Appearance: no apparent distress EENT: other - Intubated on ventilator Cardiovascular: tachycardia Respiratory/Chest: decreased breath sounds Abdomen: distended Aashish Burgess MD Aug 09, 2020 12:59
--- NOTE | 2020-08-09 13:12 | Surgery Progress Note ---
Surgery Progress Note Subjective Additional Comments no acute events Objective Last 24 Hour Vital Signs Date Time Temp Pulse Resp B/P (MAP) Pulse Ox O2 Delivery O2 Flow Rate FiO2 08/09/20 11:00 97 26 136/97 (110) 100 08/09/20 10:45 99 25 136/97 (110) 100 08/09/20 10:34 97 19 40 08/09/20 10:30 97 20 141/90 (107) 100 08/09/20 10:15 99 24 140/88 (105) 100 08/09/20 10:00 97 25 145/85 (105) 100 08/09/20 10:00 97 25 100 08/09/20 09:45 97 27 146/89 (108) 100 08/09/20 09:30 96 24 129/88 (102) 100 08/09/20 09:28 97 22 100 Mechanical Ventilator 40 08/09/20 09:23 101 26 40 08/09/20 09:15 100 30 143/86 (105) 100 08/09/20 09:10 40 08/09/20 09:00 91 33 144/83 (103) 100 08/09/20 08:35 100 08/09/20 08:30 40 08/09/20 08:30 85 16 40 40 08/09/20 08:00 40 08/09/20 08:00 85 27 144/77 (99) 100 08/09/20 08:00 83 08/09/20 08:00 Mechanical Ventilator 08/09/20 07:45 74 16 109/71 (84) 100 08/09/20 07:30 72 16 109/65 (80) 100 08/09/20 07:15 71 16 104/64 (77) 100 08/09/20 07:05 72 16 40 08/09/20 07:00 70 15 105/72 (83) 100 08/09/20 07:00 70 15 105/72 (83) 100 08/09/20 07:00 20 105/74 Mechanical Ventilator 40 08/09/20 07:00 20 105/72 Mechanical Ventilator 40 08/09/20 06:30 86 20 08/09/20 06:00 20 121/83 Mechanical Ventilator 40 08/09/20 06:00 19 121/83 Mechanical Ventilator 40 08/09/20 06:00 72 16 95/68 (77) 100 08/09/20 05:00 71 16 99/70 (80) 100 08/09/20 05:00 20 113/70 Mechanical Ventilator 40 08/09/20 05:00 20 133/70 Mechanical Ventilator 40 08/09/20 04:00 50 08/09/20 04:00 20 113/74 Non-Rebreather 40 08/09/20 04:00 20 113/74 Mechanical Ventilator 40 08/09/20 04:00 Mechanical Ventilator 08/09/20 04:00 98.3 74 16 133/72 (92) 98 08/09/20 04:00 71 08/09/20 03:00 71 16 95/68 (77) 100 08/09/20 03:00 19 124/86 Mechanical Ventilator 40 08/09/20 03:00 20 140/81 Mechanical Ventilator 40 08/09/20 02:00 19 134/85 Mechanical Ventilator 40 08/09/20 02:00 20 133/76 40 08/09/20 02:00 71 16 103/65 (78) 100 08/09/20 01:09 72 16 40 08/09/20 01:00 20 118/74 Mechanical Ventilator 40 08/09/20 01:00 19 110/80 Mechanical Ventilator 40 08/09/20 01:00 71 16 107/67 (80) 100 08/09/20 00:00 73 08/09/20 00:00 Mechanical Ventilator 08/09/20 00:00 50 08/09/20 00:00 20 109/80 Mechanical Ventilator 40 08/09/20 00:00 19 123/75 Mechanical Ventilator 40 08/09/20 00:00 98.5 73 16 102/67 (79) 100 08/08/20 23:00 76 17 111/70 (84) 100 08/08/20 23:00 19 135/72 Mechanical Ventilator 40 08/08/20 23:00 20 122/79 Mechanical Ventilator 40 08/08/20 22:00 75 16 106/68 (81) 100 08/08/20 22:00 18 122/81 40 08/08/20 22:00 19 117/80 Endotracheal Tube 40 08/08/20 21:00 78 18 96/70 (79) 100 08/08/20 21:00 20 146/73 Endotracheal Tube 40 08/08/20 21:00 20 117/70 Endotracheal Tube 40 2/20/21 21:00 50 22021 20:00 79 2/20/21 20:00 98.6 74 16 116/70 (85) 100 220 20:00 19 130/86 Endotracheal Tube 40 08/08/20 20:00 19 138/67 Endotracheal Tube 40 21 20:00 Mechanical Ventilator 08/08/20 20:00 50 220/ 19:10 72 16 40 220 19:00 72 16 103/71 (82) 100 08/08/20 19:00 16 112/71 Mechanical Ventilator 50 08/08/20 19:00 18 124/73 40 220 18:59 16 112/71 Mechanical Ventilator 50 08/08/20 18:00 72 16 101/68 (79) 100 08/08/20 18:00 74 16 106/71 (83) 100 08/08/20 18:00 16 101/68 Mechanical Ventilator 50 08/08/20 18:00 16 101/68 Mechanical Ventilator 50 08/08/20 17:30 74 16 108/68 (81) 100 08/08/20 17:00 73 16 103/70 (81) 100 08/08/20 17:00 16 103/70 Mechanical Ventilator 50 08/08/20 17:00 16 103/70 Mechanical Ventilator 50 08/08/20 16:30 73 16 97/68 (78) 100 08/08/20 16:15 74 16 103/69 (80) 100 08/08/20 16:00 Mechanical Ventilator 08/08/20 16:00 98.7 72 16 102/67 (79) 100 08/08/20 16:00 50 08/08/20 16:00 16 102/67 Mechanical Ventilator 50 21 16:00 16 102/67 Mechanical Ventilator 50 21 16:00 72 2/20/21 15:45 16 101/65 Mechanical Ventilator 50 21 15:45 73 16 101/65 (77) 100 220/21 15:30 73 16 100/62 (75) 100 220/21 15:15 69 16 129/69 (89) 97 2/20/21 15:14 68 16 50 2/20/21 15:00 70 16 117/73 (88) 97 220/21 15:00 16 117/73 Mechanical Ventilator 50 221 15:00 16 117/73 Mechanical Ventilator 50 08/08/20 14:45 70 16 111/71 (84) 96 08/08/20 14:45 16 111/71 Non-Rebreather 50 08/08/20 14:45 16 111/71 Mechanical Ventilator 50 08/08/20 14:30 70 16 115/69 (84) 97 08/08/20 14:00 16 118/79 Mechanical Ventilator 50 08/08/20 14:00 16 118/79 Mechanical Ventilator 50 08/08/20 14:00 71 16 118/79 (92) 97 I&O Intake and Output 08/08/20 08/09/20 19:00 07:00 Intake Total 2083.600 ml 1874.500 ml Output Total 510 ml 540 ml Balance 1573.600 ml 1334.500 ml IV Total 1723.600 ml 1514.500 ml Tube Feeding 360 ml 360 ml Output Urine Total 510 ml 540 ml Cardiovascular: RSR Respiratory: decreased breath sounds Abdomen: soft, distended, non-tender, non-distended, decreased bowel sounds Extremities: no edema, no tenderness, no cyanosis Laboratory Tests Test 08/09/20 06:55 08/09/20 09:30 08/09/20 10:50 White Blood Count 5.1 K/UL (4.8-10.8) Red Blood Count 3.19 M/UL (4.70-6.10) L Hemoglobin 8.6 G/DL (14.2-18.0) L Hematocrit 28.6 % (42.0-52.0) L Mean Corpuscular Volume 90 FL (80-99) Mean Corpuscular Hemoglobin 27.1 PG (27.0-31.0) Mean Corpuscular Hemoglobin Concent 30.2 G/DL (32.0-36.0) L Red Cell Distribution Width 13.9 % (11.6-14.8) Platelet Count 186 K/UL (150-450) Mean Platelet Volume 6.7 FL (6.5-10.1) Neutrophils (%) (Auto) 77.8 % (45.0-75.0) H Lymphocytes (%) (Auto) 13.1 % (20.0-45.0) L Monocytes (%) (Auto) 8.3 % (1.0-10.0) Eosinophils (%) (Auto) 0.0 % (0.0-3.0) Basophils (%) (Auto) 0.8 % (0.0-2.0) Sodium Level 145 MMOL/L (136-145) Potassium Level 3.9 MMOL/L (3.5-5.1) Chloride Level 109 MMOL/L (98-107) H Carbon Dioxide Level 31 MMOL/L (21-32) Anion Gap 5 mmol/L (5-15) Blood Urea Nitrogen 20 mg/dL (7-18) H Creatinine 0.8 MG/DL (0.55-1.30) Estimat Glomerular Filtration Rate > 60 mL/min (>60) Glucose Level 155 MG/DL (74-106) H Calcium Level 8.3 MG/DL (8.5-10.1) L Arterial Blood pH 7.450 (7.350-7.450) Arterial Blood Partial Pressure CO2 44.0 mmHg (35.0-45.0) Arterial Blood Partial Pressure O2 67.4 mmHg (75.0-100.0) L Arterial Blood HCO3 29.9 mmol/L (22.0-26.0) H Arterial Blood Oxygen Saturation 92.5 % (95-100) L Arterial Blood Base Excess 5.3 (-2-2) H Chadwick Test Positive Vancomycin Level Trough 13.5 ug/mL (5.0-12.0) H Plan Problems: (1) Abdominal distension Assessment & Plan: 79M abdominal distention, respiratory decline, altered mental status. on exam noted abd soft, mild distended, non tender. no n/v/f/c. unlikely aspiration. non tender one exam. pending urine and covid test. no acute surgical intervention. hold on ct. kub ordered. will follow with exam and recs. keep npo for now. iv fluids. respiratory pulm support. will follow with recs thank you decline since admission now intubated ng tube to suction no acute surgical intervention cont abx kub noted wean vent enema when stable The rectum is considerably distended with stool. Considerable stool is also seen in the descending colon. The colon is diffusely gas filled, upper limits of normal in caliber. No significant small bowel gas demonstrated. No masses or unusual calcifications. The included lung bases demonstrate bilateral right greater than left pleural effusions. There is a Butler catheter Impression: Distended stool-filled rectum, fecal impaction possible Gas-filled upper limits of normal caliber colon, nonspecific Bilateral right greater than left pleural effusions (2) UTI (urinary tract infection) (3) Pneumonia (4) Multiple pulmonary nodules (5) Respiratory failure with hypoxia (6) Pneumonia due to COVID-19 virus (7) History of CVA (cerebrovascular accident) (8) COPD (chronic obstructive pulmonary disease) (9) HTN (hypertension) (10) Hx of prostatic malignancy (11) Major depression (12) Seizure disorder Destin Brown Aug 09, 2020 13:12
--- NOTE | 2020-08-09 14:14 | Diagnostic Imaging Report ---
EXAM: XR Abdomen, 1 view CLINICAL HISTORY: TUBE PLCMT TECHNIQUE: Frontal view of the upper abdomen. COMPARISON: Abdominal x-ray dated 08/06/20 FINDINGS: Lower thorax: Blunting of the costophrenic angles may be related to pleural thickening versus small pleural effusions. Intraperitoneal space: No free air. Gastrointestinal tract: Moderate gaseous distention of stomach and bowel loops. Bones/joints: Unremarkable. Tubes, lines and devices: NG tube tip in the distal stomach. IMPRESSION: 1. NG tube tip in the distal stomach. 2. Moderate gaseous distention of stomach and bowel loops. 3. Blunting of the costophrenic angles may be related to pleural thickening versus small pleural effusions.
--- NOTE | 2020-08-09 14:55 | Internal Med Progress Note ---
Subjective Date of Service: Aug 09, 2020 Physician Name Pablo Hickman Attending Physician Torres Saul MD Current Medications Medications (Trade) Dose Ordered Sig/Armand Route PRN Reason Start Time Stop Time Status Last Admin Dose Admin Acetaminophen (Tylenol) 650 mg Q6H PRN NG Mild Pain (Pain Scale 1-3) 08/08/20 14:00 09/07/20 13:59 Acetaminophen (Tylenol) 650 mg Q6H PRN NG Temp >100.5 08/08/20 14:00 09/07/20 13:59 Albuterol/ Ipratropium (Combivent Respimat) 1 puff Q4H PRN INH Shortness of Breath 08/04/20 10:00 09/03/20 09:59 Albuterol/ Ipratropium (Combivent Respimat) 1 puff Q8HR INH 08/04/20 09:30 09/03/20 09:29 08/06/20 14:00 Cefepime HCl 2 gm/ Dextrose 110 ml @ 220 mls/hr EVERY 12 HOURS IV 08/05/20 21:00 08/12/20 20:59 08/09/20 09:00 Chlorhexidine Gluconate (Maddie-Hex 2%) 1 applic DAILY@2000 TOPIC 08/07/20 20:00 11/05/20 19:59 08/08/20 20:19 Dextrose/Sodium Chloride 1,000 ml @ 75 mls/hr [id number] IV 08/06/20 11:00 09/05/20 10:59 08/09/20 05:47 Enoxaparin Sodium (Lovenox) 60 mg EVERY 12 HOURS SUBQ 08/05/20 21:00 11/03/20 20:59 08/09/20 09:00 Famotidine (Pepcid I.v.) 20 mg Q12HR IVP 08/06/20 11:00 09/05/20 10:59 08/09/20 09:00 Fentanyl Citrate 1000 mcg/Sodium Chloride 100 ml @ 1 mls/hr Q24H IV 08/08/20 16:00 08/10/20 15:59 08/08/20 19:00 Gabapentin (Neurontin) 300 mg EVERY 8 HOURS NG 08/08/20 22:00 09/04/20 08:59 08/09/20 05:50 Lorazepam (Ativan 2mg/ml 1ml) 0.5 mg Q6H PRN IV For Anxiety 08/04/20 21:30 08/11/20 21:29 Methylprednisolone Sodium Succinate (Solu-MEDROL) 40 mg EVERY 6 HOURS IVP 08/05/20 12:00 11/03/20 11:59 08/09/20 05:50 Metronidazole 100 ml @ 100 mls/hr Q8HR IVPB 08/04/20 14:00 08/11/20 13:59 08/09/20 05:50 Midazolam HCl 200 ml @ 0 mls/hr Q24H PRN IV To Patient Comfort 08/05/20 15:30 08/12/20 15:29 08/08/20 18:59 Vancomycin HCl 250 ml @ 166.667 mls/hr Q8HR@0400,1200,2000 IVPB 08/08/20 20:00 08/13/20 19:59 08/09/20 04:28 Vancomycin HCl ([facility] pharmacy to dose) 1 ea DAILY PRN MISC Per rx protocol 08/04/20 09:15 09/03/20 09:14 Allergies: Coded Allergies: PENICILLINS (Verified Allergy, Unknown, 03/10/20) PHENYTOIN (Verified Allergy, Unknown, 03/10/20) ROS Limited/Unobtainable: Yes Subjective 79 YO M admitted with respiratory distress. Now pneumonia. Cover for [facility] Med- Dr Saul. ICU. Intubated and sedated Objective Last Vital Signs Date Time Temp Pulse Resp B/P (MAP) Pulse Ox O2 Delivery O2 Flow Rate FiO2 08/09/20 13:45 99 16 121/91 (101) 100 08/09/20 12:00 Mechanical Ventilator 08/09/20 10:34 40 08/09/20 04:00 98.3 08/08/20 06:02 10.0 Laboratory Tests Test 08/09/20 06:55 08/09/20 09:30 08/09/20 10:50 White Blood Count 5.1 K/UL (4.8-10.8) Red Blood Count 3.19 M/UL (4.70-6.10) L Hemoglobin 8.6 G/DL (14.2-18.0) L Hematocrit 28.6 % (42.0-52.0) L Mean Corpuscular Volume 90 FL (80-99) Mean Corpuscular Hemoglobin 27.1 PG (27.0-31.0) Mean Corpuscular Hemoglobin Concent 30.2 G/DL (32.0-36.0) L Red Cell Distribution Width 13.9 % (11.6-14.8) Platelet Count 186 K/UL (150-450) Mean Platelet Volume 6.7 FL (6.5-10.1) Neutrophils (%) (Auto) 77.8 % (45.0-75.0) H Lymphocytes (%) (Auto) 13.1 % (20.0-45.0) L Monocytes (%) (Auto) 8.3 % (1.0-10.0) Eosinophils (%) (Auto) 0.0 % (0.0-3.0) Basophils (%) (Auto) 0.8 % (0.0-2.0) Sodium Level 145 MMOL/L (136-145) Potassium Level 3.9 MMOL/L (3.5-5.1) Chloride Level 109 MMOL/L (98-107) H Carbon Dioxide Level 31 MMOL/L (21-32) Anion Gap 5 mmol/L (5-15) Blood Urea Nitrogen 20 mg/dL (7-18) H Creatinine 0.8 MG/DL (0.55-1.30) Estimat Glomerular Filtration Rate > 60 mL/min (>60) Glucose Level 155 MG/DL (74-106) H Calcium Level 8.3 MG/DL (8.5-10.1) L Arterial Blood pH 7.450 (7.350-7.450) Arterial Blood Partial Pressure CO2 44.0 mmHg (35.0-45.0) Arterial Blood Partial Pressure O2 67.4 mmHg (75.0-100.0) L Arterial Blood HCO3 29.9 mmol/L (22.0-26.0) H Arterial Blood Oxygen Saturation 92.5 % (95-100) L Arterial Blood Base Excess 5.3 (-2-2) H Chadwick Test Positive Vancomycin Level Trough 13.5 ug/mL (5.0-12.0) H Microbiology Date/Time Source Procedure Growth Status 08/07/20 04:00 Sputum Gram Stain - Final Resulted 08/07/20 04:00 Sputum Sputum Culture - Preliminary NO GROWTH AFTER 24 HOURS Resulted Intake and Output 08/08/20 08/09/20 19:00 07:00 Intake Total 2083.600 ml 1874.500 ml Output Total 510 ml 540 ml Balance 1573.600 ml 1334.500 ml IV Total 1723.600 ml 1514.500 ml Tube Feeding 360 ml 360 ml Output Urine Total 510 ml 540 ml Objective PHYSICAL EXAMINATION: GENERAL: The patient is well-developed, well-nourished male, in moderate respiratory distress. HEENT: Eyes, pupils are equal and responsive to light and accommodation. Extraocular movements are intact. NECK: Supple. No lymphadenopathy. CHEST: Mech vent; Lungs are clear to auscultation bilaterally without wheezes or rales. CARDIOVASCULAR: Regular rhythm and rate. S1-S2 are normal without murmurs, rubs, or gallops. ABDOMEN: Soft, nontender, and nondistended. Positive bowel sounds. No evidence of hepatosplenomegaly. Currently, no rebound or guarding noted. EXTREMITIES: Negative for clubbing, cyanosis, or edema. RECTAL/GENITAL: Not performed. NEUROLOGIC: Cranial nerves II through XII are grossly intact without focal deficits. Motor strength is 5/5 bilaterally. Deep tendon reflexes are 2+ plantar. Assessment/Plan Assessment/Plan ASSESSMENT: This is an 79-year-old male with. 1. Respiratory failure-intubated 08/05/20; mech vent 2. Right-sided pneumonia. 3. Hypertension. 4. Congestive heart failure. 5. Chronic obstructive pulmonary disease. 6. Anemia. 7. Cerebrovascular disease, status post cerebrovascular accident. 8. Peripheral vascular disease. 9. Gastroesophageal reflux disease. 10. Major depression. 11. Seizure disorder. 12. History of COVID-19 positive in February 2020. 13. Benign prostatic hypertrophy. TREATMENT: 1. Respiratory failure/right-sided pneumonia pulmonary consultation= Dr. Micha Schneider. ABX= vancomycin, flagyl and cefepime. Infectious Disease= Dr. Urrutia. Follow recommendations of Infectious Disease and Pulmonary. 2. Hypertension. The patient is currently hypotensive. 3. Congestive heart failure. 4. Chronic obstructive pulmonary disease. Continue DuoNeb as above. 5. Anemia. 6. Cerebrovascular disease. 7. Peripheral vascular disease. 8. Gastroesophageal reflux disease. Continue famotidine as above. 9. Major depression. Seizure disorder. 10. COVID-19 positive, history in February 2020. 11. Benign prostatic hypertrophy. Continue Flomax as above. Pablo Hickman MD Aug 09, 2020 14:55
--- NOTE | 2020-08-09 19:30 | Infectious Diseases Prog Note ---
Assessment/Plan Assessment/Plan ASSESSMENT AND PLAN: 1. 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 contaminant vs bacteremia, uti, sepsis, shock, respiratory failure, vent sirs, leukocytosis, fevers mrsa colonization + femoral line - to be changed to picc line covid-19 testing negative - vancomycin, cefepime and flagyl - day # 5 abx - f/u on labs and chest x-ray - icu care, vent care, bp support - d/w RN - of pressors 2. await COVID testing. Patient is in COVID isolation with history of COVID in the past. 3. Patient is on steroids. 4. If patient has COVID infection or new COVID infection, patient is a poor candidate for remdesivir because of respiratory failure, mechanical ventilation. Probably not very beneficial action in a patient like this. 5. Vent care per Pulmonary Medicine. 6. Blood pressure support. 7. Hypertension. 8. CHF. 9. COPD. 10. Prostate cancer. 11. Anemia. 12. CVA. 13. Aspiration risk. 14. Peripheral vascular disease. 15. GERD. 16. Seizures. 17. Depression. 18. History of COVID infection in February 2020. 19. Continue treatment per primary consultants. 20. Orders were noted and entered. 21. Skin care protocol. 22. Allergies to penicillin and phenytoin. 23. Social history is negative. 24. Family history is noncontributory. 25. MAR is noted. 26. Case was discussed with RN. Subjective Constitutional: Reports: fatigue, other - on vent, no pressors ; Denies: fever HEENT: Reports: congestion Respiratory: Reports: shortness of breath Cardiovascular: Denies: chest pain Gastrointestinal/Abdominal: Denies: nausea, vomiting, diarrhea Genitourinary: Reports: other - + bee Neurologic: Reports: weakness, other - sedated, on vent Psychiatric: Reports: other - NA Skin: Denies: rash Hematologic: Denies: bleeding Musculoskeletal: Reports: other - NA Allergies: Coded Allergies: PENICILLINS (Verified Allergy, Unknown, 03/10/20) PHENYTOIN (Verified Allergy, Unknown, 03/10/20) Objective Last 24 Hour Vital Signs Date Time Temp Pulse Resp B/P (MAP) Pulse Ox O2 Delivery O2 Flow Rate FiO2 08/09/20 18:45 94 16 133/83 (100) 100 08/09/20 18:30 94 16 123/79 (94) 100 08/09/20 18:15 94 16 120/72 (88) 100 08/09/20 18:00 100 17 131/82 (98) 100 08/09/20 17:59 100 29 135/89 (104) 100 08/09/20 17:45 125/86 (99) 100 08/09/20 17:30 91 16 127/80 (96) 100 08/09/20 17:15 94 21 129/83 (98) 100 08/09/20 17:00 100 30 154/86 (108) 100 08/09/20 16:45 96 18 131/90 (104) 100 08/09/20 16:30 97 30 133/81 (98) 100 08/09/20 16:15 104 29 135/91 (106) 100 08/09/20 16:00 96 08/09/20 16:00 Mechanical Ventilator 08/09/20 16:00 40 08/09/20 16:00 94 16 129/81 (97) 100 08/09/20 15:15 101 34 148/89 (108) 100 08/09/20 15:00 97 31 136/98 (111) 100 08/09/20 14:56 95 16 40 08/09/20 14:45 98 33 136/90 (105) 100 08/09/20 14:30 101 32 141/87 (105) 100 08/09/20 14:15 99 31 138/84 (102) 100 08/09/20 14:00 100 31 134/81 (98) 100 08/09/20 13:45 99 16 121/91 (101) 100 08/09/20 13:30 95 29 139/88 (105) 100 08/09/20 13:15 94 28 138/84 (102) 100 08/09/20 13:00 100 22 128/77 (94) 100 08/09/20 12:45 102 37 135/96 (109) 100 08/09/20 12:30 95 34 149/101 (117) 100 08/09/20 12:15 96 35 134/84 (101) 100 08/09/20 12:00 94 31 136/89 (105) 100 08/09/20 12:00 71 08/09/20 12:00 Mechanical Ventilator 08/09/20 11:00 97 26 136/97 (110) 100 08/09/20 10:45 99 25 136/97 (110) 100 08/09/20 10:34 97 19 40 08/09/20 10:30 97 20 141/90 (107) 100 08/09/20 10:15 99 24 140/88 (105) 100 08/09/20 10:00 97 25 145/85 (105) 100 08/09/20 10:00 97 25 100 08/09/20 09:45 97 27 146/89 (108) 100 08/09/20 09:30 96 24 129/88 (102) 100 08/09/20 09:28 97 22 100 Mechanical Ventilator 40 08/09/20 09:23 101 26 40 08/09/20 09:15 100 30 143/86 (105) 100 08/09/20 09:10 40 08/09/20 09:00 91 33 144/83 (103) 100 08/09/20 08:35 100 08/09/20 08:30 40 08/09/20 08:30 85 16 40 40 08/09/20 08:00 40 08/09/20 08:00 85 27 144/77 (99) 100 08/09/20 08:00 83 08/09/20 08:00 Mechanical Ventilator 08/09/20 07:45 74 16 109/71 (84) 100 08/09/20 07:30 72 16 109/65 (80) 100 08/09/20 07:15 71 16 104/64 (77) 100 08/09/20 07:05 72 16 40 08/09/20 07:00 70 15 105/72 (83) 100 08/09/20 07:00 70 15 105/72 (83) 100 08/09/20 07:00 20 105/74 Mechanical Ventilator 40 08/09/20 07:00 20 105/72 Mechanical Ventilator 40 08/09/20 06:30 86 20 08/09/20 06:00 20 121/83 Mechanical Ventilator 40 08/09/20 06:00 19 121/83 Mechanical Ventilator 40 08/09/20 06:00 72 16 95/68 (77) 100 08/09/20 05:00 71 16 99/70 (80) 100 08/09/20 05:00 20 113/70 Mechanical Ventilator 40 08/09/20 05:00 20 133/70 Mechanical Ventilator 40 08/09/20 04:00 50 08/09/20 04:00 20 113/74 Non-Rebreather 40 08/09/20 04:00 20 113/74 Mechanical Ventilator 40 08/09/20 04:00 Mechanical Ventilator 08/09/20 04:00 98.3 74 16 133/72 (92) 98 08/09/20 04:00 71 08/09/20 03:00 71 16 95/68 (77) 100 08/09/20 03:00 19 124/86 Mechanical Ventilator 40 08/09/20 03:00 20 140/81 Mechanical Ventilator 40 08/09/20 02:00 19 134/85 Mechanical Ventilator 40 08/09/20 02:00 20 133/76 40 08/09/20 02:00 71 16 103/65 (78) 100 08/09/20 01:09 72 16 40 08/09/20 01:00 20 118/74 Mechanical Ventilator 40 08/09/20 01:00 19 110/80 Mechanical Ventilator 40 08/09/20 01:00 71 16 107/67 (80) 100 08/09/20 00:00 73 08/09/20 00:00 Mechanical Ventilator 08/09/20 00:00 50 08/09/20 00:00 20 109/80 Mechanical Ventilator 40 08/09/20 00:00 19 123/75 Mechanical Ventilator 40 08/09/20 00:00 98.5 73 16 102/67 (79) 100 08/08/20 23:00 76 17 111/70 (84) 100 08/08/20 23:00 19 135/72 Mechanical Ventilator 40 08/08/20 23:00 20 122/79 Mechanical Ventilator 40 08/08/20 22:00 75 16 106/68 (81) 100 08/08/20 22:00 18 122/81 40 08/08/20 22:00 19 117/80 Endotracheal Tube 40 08/08/20 21:00 78 18 96/70 (79) 100 08/08/20 21:00 20 146/73 Endotracheal Tube 40 08/08/20 21:00 20 117/70 Endotracheal Tube 40 08/08/20 21:00 50 08/08/20 20:00 79 08/08/20 20:00 98.6 74 16 116/70 (85) 100 08/08/20 20:00 19 130/86 Endotracheal Tube 40 08/08/20 20:00 19 138/67 Endotracheal Tube 40 08/08/20 20:00 Mechanical Ventilator 08/08/20 20:00 50 Height (Feet): 6 Height (Inches): 1.00 Weight (Pounds): 190 General Appearance: other - on vent, no pressors, fio2-40% HEENT: normocephalic, other - oral - intubated Respiratory/Chest: crackles/rales, rhonchi - bilaterally Cardiovascular: normal rate, regular rhythm, regularly irregular, no JVD Abdomen: normal bowel sounds, soft, non tender, no organomegaly, non distended Genitourinary: other - + bee Extremities: no cyanosis Skin: no rash Neurologic/Psychiatric: other - sedated, on vent Lymphatic: no neck adenopathy Musculoskeletal: no effusion CT Chest - Impression: Dense consolidation, likely representing pneumonia, involving the va st majority the right lower lobe, as well as a significant portion of the right upper lobe. Considerable right upper lobe atelectatic changes. COPD changes A few areas of atelectasis and possibly some consolidation is seen in the left lung Small right pleural fluid Evidence of old granulomatous disease 3 mm mm noncalcified nodule in the right middle lobe, not definitely evident previously. Recommend short interval 6 to 12 month follow-up CT scan Dilated right main pulmonary artery, indicative of pulmonary arterial hypertension Satisfactory endotracheal intubation Cholelithiasis Chest x-ray - 08/06/20 - Procedure: XRAY Chest 1v Indication: Abnormal chest sounds Technique: One view of the chest Comparison: 08/05/2020 Findings: Stable satisfactory the position of endotracheal tube. There is developing atelectasis in the right upper lung. There is persistent pleural fluid on the right and increasing parenchymal consolidation. Left lung pleural space remain clear. The heart size is normal Impression: Increasing right upper lobe atelectasis and right lung infiltrate. Unchanged right pleural effusion Chest x-ray - 08/09/20 Procedure: XRAY Chest 1v EXAM: XR Chest, 1 View CLINICAL HISTORY: INFECT TECHNIQUE: Frontal view of the chest. COMPARISON: Chest radiograph August 06, 2020. FINDINGS/IMPRESSION: Stable endotracheal tube. Opacity within the right lower lung field consistent with infiltrate, which is mild improving. Mild-moderate pleural effusion which is mildly worsening. No pneumothorax. The heart size is within normal limit. Calcified, tortuous aorta. Microbiology Date/Time Source Procedure Growth Status 08/07/20 04:00 Sputum Gram Stain - Final Resulted 08/07/20 04:00 Sputum Sputum Culture - Preliminary NO GROWTH AFTER 24 HOURS Resulted Laboratory Tests Test 08/09/20 06:55 08/09/20 09:30 08/09/20 10:50 White Blood Count 5.1 K/UL (4.8-10.8) Red Blood Count 3.19 M/UL (4.70-6.10) L Hemoglobin 8.6 G/DL (14.2-18.0) L Hematocrit 28.6 % (42.0-52.0) L Mean Corpuscular Volume 90 FL (80-99) Mean Corpuscular Hemoglobin 27.1 PG (27.0-31.0) Mean Corpuscular Hemoglobin Concent 30.2 G/DL (32.0-36.0) L Red Cell Distribution Width 13.9 % (11.6-14.8) Platelet Count 186 K/UL (150-450) Mean Platelet Volume 6.7 FL (6.5-10.1) Neutrophils (%) (Auto) 77.8 % (45.0-75.0) H Lymphocytes (%) (Auto) 13.1 % (20.0-45.0) L Monocytes (%) (Auto) 8.3 % (1.0-10.0) Eosinophils (%) (Auto) 0.0 % (0.0-3.0) Basophils (%) (Auto) 0.8 % (0.0-2.0) Sodium Level 145 MMOL/L (136-145) Potassium Level 3.9 MMOL/L (3.5-5.1) Chloride Level 109 MMOL/L (98-107) H Carbon Dioxide Level 31 MMOL/L (21-32) Anion Gap 5 mmol/L (5-15) Blood Urea Nitrogen 20 mg/dL (7-18) H Creatinine 0.8 MG/DL (0.55-1.30) Estimat Glomerular Filtration Rate > 60 mL/min (>60) Glucose Level 155 MG/DL (74-106) H Calcium Level 8.3 MG/DL (8.5-10.1) L Arterial Blood pH 7.450 (7.350-7.450) Arterial Blood Partial Pressure CO2 44.0 mmHg (35.0-45.0) Arterial Blood Partial Pressure O2 67.4 mmHg (75.0-100.0) L Arterial Blood HCO3 29.9 mmol/L (22.0-26.0) H Arterial Blood Oxygen Saturation 92.5 % (95-100) L Arterial Blood Base Excess 5.3 (-2-2) H Chadwick Test Positive Vancomycin Level Trough 13.5 ug/mL (5.0-12.0) H Current Medications Medications (Trade) Dose Ordered Sig/Armand Route PRN Reason Start Time Stop Time Status Last Admin Dose Admin Acetaminophen (Tylenol) 650 mg Q6H PRN NG Mild Pain (Pain Scale 1-3) 08/08/20 14:00 09/07/20 13:59 Acetaminophen (Tylenol) 650 mg Q6H PRN NG Temp >100.5 08/08/20 14:00 09/07/20 13:59 Albuterol/ Ipratropium (Combivent Respimat) 1 puff Q4H PRN INH Shortness of Breath 08/04/20 10:00 09/03/20 09:59 Albuterol/ Ipratropium (Combivent Respimat) 1 puff Q8HR INH 08/04/20 09:30 09/03/20 09:29 08/06/20 14:00 Cefepime HCl 2 gm/ Dextrose 110 ml @ 220 mls/hr EVERY 12 HOURS IV 08/05/20 21:00 08/12/20 20:59 08/09/20 09:00 Chlorhexidine Gluconate (Maddie-Hex 2%) 1 applic DAILY@2000 TOPIC 08/07/20 20:00 11/05/20 19:59 08/08/20 20:19 Dextrose/Sodium Chloride 1,000 ml @ 75 mls/hr [id number] IV 08/06/20 11:00 09/05/20 10:59 08/09/20 05:47 Enoxaparin Sodium (Lovenox) 60 mg EVERY 12 HOURS SUBQ 08/05/20 21:00 11/03/20 20:59 08/09/20 09:00 Famotidine (Pepcid I.v.) 20 mg Q12HR IVP 08/06/20 11:00 09/05/20 10:59 08/09/20 09:00 Fentanyl Citrate 1000 mcg/Sodium Chloride 100 ml @ 1 mls/hr Q24H IV 08/08/20 16:00 08/10/20 15:59 08/08/20 19:00 Gabapentin (Neurontin) 300 mg EVERY 8 HOURS NG 08/08/20 22:00 09/04/20 08:59 08/09/20 14:00 Lorazepam (Ativan 2mg/ml 1ml) 0.5 mg Q6H PRN IV For Anxiety 08/04/20 21:30 08/11/20 21:29 Methylprednisolone Sodium Succinate (Solu-MEDROL) 40 mg EVERY 6 HOURS IVP 08/05/20 12:00 11/03/20 11:59 08/09/20 18:00 Metronidazole 100 ml @ 100 mls/hr Q8HR IVPB 08/04/20 14:00 08/11/20 13:59 08/09/20 14:00 Midazolam HCl 200 ml @ 0 mls/hr Q24H PRN IV To Patient Comfort 08/05/20 15:30 08/12/20 15:29 08/08/20 18:59 Vancomycin HCl 250 ml @ 166.667 mls/hr Q8HR@0400,1200,2000 IVPB 08/08/20 20:00 08/13/20 19:59 08/09/20 12:00 Vancomycin HCl ([facility] pharmacy to dose) 1 ea DAILY PRN MISC Per rx protocol 08/04/20 09:15 09/03/20 09:14 Kemar Nichole MD Aug 09, 2020 19:30
--- NOTE | 2020-08-09 20:00 | NUR ---
NURSE NOTES:received patient, ventilated via ett, 7.5, 23 cm at the lip, settings, ac16, vt 500, fio2 40%, peep 5, sat, 99%, secretions thick and abundant requiring frequent suctioning. Tolerating ogt feeding, glucerna 1.5 at 30, no residual. bee in place, output adequate, smear of bm only noted when patient repositioned and chg bath applied.Right femoral tlc inplace, white port appears to be blocked and other ports sluggish, flushed with saline.versed drip at 3mg/hr and fentanyl at 100mcg/hr.
[2020-08-09] MEDS: Dyna-Hex 2% Top Sol 2oz TOPIC SCH (20:29)
[2020-08-09] MEDS: Acetaminophen 650mg/20.3ml NG PRN (20:31)
--- NOTE | 2020-08-09 21:00 | NUR ---
NURSE NOTES:Versed discontinued at this time fentanyl at 100 mcg.hr, appears mildy uncomfortable so tylenol given.
--- NOTE | 2020-08-09 22:00 | NUR ---
NURSE NOTES: noted to be more responsive, opens eyes and moving arms,suctioned x1
[2020-08-10] VITALS (65 sets, daily range): BP systolic 71–191; BP diastolic 48–97
--- NOTE | 2020-08-10 | NUR ---
NURSE NOTES ventilator settings remain unchanged, afebrile, bs 167. repositioned.
--- NOTE | 2020-08-10 02:00 | NUR ---
NURSE NOTES:tolerating ventilator, no distress, vs stable, pt calm with minimal arm movement
--- NOTE | 2020-08-10 04:00 | NUR ---
NURSE NOTES:fentanyl decreased to 50mcg/hr to prepare for weaning
[2020-08-10] MEDS: Vancomycin 1.25gm/250ml Premix IVPB SCH ×3 (05:10→20:05)
[2020-08-10] MEDS: Gabapentin 300 MG/6 ML Soln NG SCH ×4 (05:45→22:36)
[2020-08-10] MEDS: Solu-MEDROL 40mg Inj IVP SCH ×3 (05:45→18:00)
--- NOTE | 2020-08-10 06:00 | NUR ---
NURSE NOTES:patient more awake, vs stable, tolerating vent, for abg picc line and cxr today
[2020-08-10 06:25] LABS: HEMATOCRIT 30.6 % (42.0-52.0); HEMOGLOBIN 9.4 G/DL (14.2-18.0); MEAN CORPUSCULAR VOLUME 89 FL (80-99); PLATELET COUNT 237 K/UL (150-450); RED BLOOD COUNT 3.43 M/UL (4.70-6.10); RED CELL DISTRIBUTION WIDTH 14.2 % (11.6-14.8); WHITE BLOOD COUNT 11.8 K/UL (4.8-10.8)
[2020-08-10 07:09] LABS: ALANINE AMINOTRANSFERASE 41 U/L (12-78); ALBUMIN/GLOBULIN RATIO 0.5 (1.0-2.7); ALKALINE PHOSPHATASE 59 U/L (46-116); ANION GAP 4 mmol/L (5-15); ASPARTATE AMINO TRANSFERASE 50 U/L (15-37); BILIRUBIN,TOTAL 0.4 MG/DL (0.2-1.0); BLOOD UREA NITROGEN 18 mg/dL (7-18); CALCIUM 8.2 MG/DL (8.5-10.1); CARBON DIOXIDE 32 MMOL/L (21-32); CHLORIDE 107 MMOL/L (98-107); CREATININE 0.7 MG/DL (0.55-1.30); PHOSPHORUS 2.2 MG/DL (2.5-4.9); POTASSIUM 3.7 MMOL/L (3.5-5.1); SODIUM 143 MMOL/L (136-145)
--- NOTE | 2020-08-10 07:09 | NUR ---
NURSE HAND-OFF REPORT: Latest Vital Signs: Temperature 96.8 , Pulse 84 , B/P 145 /81 , Respiratory Rate 24 , O2 SAT 100 , Mechanical Ventilator, O2 Flow Rate . Vital Sign Comment: EKG Rhythm: Sinus Rhythm Rhythm change?: N MD Notified?: -n MD Response: Latest Castro Fall Score: 50 Fall Risk: High Risk Safety Measures: Call light Within Reach, Bed Alarm Zone 2, Side Rails Side Rails x2, Bed position Low and Locked. Fall Precautions: Yellow Socks Yellow Gown Door Sign Patient Fall Education Report given to Lianna Lantigua.
[2020-08-10] MEDS: D5 1/2NS 1,000 ML IV SCH (08:20)
--- NOTE | 2020-08-10 08:51 | Nephrology Progress Note ---
Assessment/Plan Problem List: (1) Oliguria (2) Electrolyte imbalance (3) Pneumonia (4) Respiratory failure with hypoxia (5) Pneumonia due to COVID-19 virus (6) Seizure disorder (7) Anemia Assessment Sepsis, respiratory failure Pneumonia and possible aspiration. Questionable COVID-19 infection UTI Abnormal electrolytes Questionable CHF Anemia Plan August 10: Status quo. Intubated on ventilator. FiO2 remains 40%. Renal parameters stable. Continue per current management. Potassium and phosphorus supplement given August 09: Full code. Intubated on ventilator. FiO2 40%. Labs reviewed. Stable from renal standpoint of view. August 08: Labs reviewed. Renal parameters stable. Abnormal electrolytes addressed. Remains full code. FiO2 50%. Continue per consultants. Discussed with RN. August 07: Labs reviewed. K Phos IV given. Patient intubated. Full code. FiO2 60%. Medication list reviewed. Continue per consultants. Previously: Optimize pulmonary status Optimize cardiac status Monitor renal parameters, urine output, electrolytes Change IV to half-normal saline Anemia mansfield Insert NG tube and start feeding Per orders Subjective ROS Limited/Unobtainable: Yes Objective Objective Last 24 Hour Vital Signs Date Time Temp Pulse Resp B/P (MAP) Pulse Ox O2 Delivery O2 Flow Rate FiO2 08/10/20 07:15 81 27 112/73 (86) 100 08/10/20 07:00 80 16 112/73 (86) 100 08/10/20 07:00 82 24 117/70 (86) 100 08/10/20 06:45 78 17 120/80 (93) 100 08/10/20 06:30 80 20 127/81 (96) 100 08/10/20 06:23 83 20 08/10/20 06:15 84 24 145/81 (102) 100 08/10/20 06:15 84 24 145/81 (102) 100 08/10/20 06:00 86 28 114/87 (96) 100 08/10/20 06:00 17 127/81 Mechanical Ventilator 40 08/10/20 06:00 86 28 114/87 (96) 100 08/10/20 05:00 32 124/81 Mechanical Ventilator 40 08/10/20 05:00 87 26 140/84 (102) 100 08/10/20 04:49 88 18 40 08/10/20 04:00 87 08/10/20 04:00 40 08/10/20 04:00 28 132/85 Mechanical Ventilator 40 08/10/20 04:00 Mechanical Ventilator 08/10/20 04:00 96.8 84 23 141/92 (108) 100 08/10/20 03:30 83 20 146/80 (102) 100 08/10/20 03:09 26 143/77 Mechanical Ventilator 40 08/10/20 03:01 84 19 40 08/10/20 03:00 81 29 143/77 (99) 100 08/10/20 02:30 79 21 139/77 (97) 100 08/10/20 02:00 17 122/74 Mechanical Ventilator 40 08/10/20 02:00 75 18 144/75 (98) 100 08/10/20 01:30 73 16 119/73 (88) 100 08/10/20 01:17 92 16 40 08/10/20 01:00 16 119/74 Endotracheal Tube 40 08/10/20 01:00 78 16 123/79 (94) 100 08/10/20 00:30 81 23 126/84 (98) 100 08/10/20 00:00 98.6 80 23 108/70 (83) 100 08/10/20 00:00 Mechanical Ventilator 08/10/20 00:00 40 08/10/20 00:00 31 131/76 Endotracheal Tube 40 08/10/20 00:00 87 08/09/20 23:30 90 18 117/73 (88) 100 08/09/20 23:25 93 17 40 08/09/20 23:00 85 31 116/76 (89) 100 08/09/20 23:00 31 116/75 Mechanical Ventilator 40 08/09/20 22:00 95 31 137/87 (104) 100 08/09/20 21:49 33 136/81 Endotracheal Tube 40 08/09/20 21:02 97 18 40 08/09/20 21:01 99.4 08/09/20 21:00 33 139/83 Mechanical Ventilator 40 08/09/20 21:00 100 35 135/83 (100) 100 08/09/20 20:32 33 139/83 Mechanical Ventilator 40 08/09/20 20:30 86 16 116/74 (88) 100 08/09/20 20:29 31 189/87 Endotracheal Tube 40 08/09/20 20:00 Mechanical Ventilator 08/09/20 20:00 40 08/09/20 20:00 92 08/09/20 20:00 99.4 91 16 128/78 (95) 100 08/09/20 19:44 95 17 40 08/09/20 19:30 99 38 139/78 (98) 100 08/09/20 19:00 91 16 121/81 (94) 100 08/09/20 18:45 94 16 133/83 (100) 100 08/09/20 18:30 94 16 123/79 (94) 100 08/09/20 18:15 94 16 120/72 (88) 100 08/09/20 18:00 100 17 131/82 (98) 100 08/09/20 17:59 100 29 135/89 (104) 100 08/09/20 17:45 125/86 (99) 100 08/09/20 17:30 91 16 127/80 (96) 100 08/09/20 17:15 94 21 129/83 (98) 100 08/09/20 17:00 100 30 154/86 (108) 100 08/09/20 16:45 96 18 131/90 (104) 100 08/09/20 16:30 97 30 133/81 (98) 100 08/09/20 16:15 104 29 135/91 (106) 100 08/09/20 16:00 96 08/09/20 16:00 Mechanical Ventilator 08/09/20 16:00 40 08/09/20 16:00 94 16 129/81 (97) 100 08/09/20 15:15 101 34 148/89 (108) 100 08/09/20 15:00 97 31 136/98 (111) 100 08/09/20 14:56 95 16 40 08/09/20 14:45 98 33 136/90 (105) 100 08/09/20 14:30 101 32 141/87 (105) 100 08/09/20 14:15 99 31 138/84 (102) 100 08/09/20 14:00 100 31 134/81 (98) 100 08/09/20 13:45 99 16 121/91 (101) 100 08/09/20 13:30 95 29 139/88 (105) 100 08/09/20 13:15 94 28 138/84 (102) 100 08/09/20 13:00 100 22 128/77 (94) 100 08/09/20 12:45 102 37 135/96 (109) 100 08/09/20 12:30 95 34 149/101 (117) 100 08/09/20 12:15 96 35 134/84 (101) 100 08/09/20 12:00 94 31 136/89 (105) 100 08/09/20 12:00 71 08/09/20 12:00 Mechanical Ventilator 08/09/20 11:00 97 26 136/97 (110) 100 08/09/20 10:45 99 25 136/97 (110) 100 08/09/20 10:34 97 19 40 08/09/20 10:30 97 20 141/90 (107) 100 08/09/20 10:15 99 24 140/88 (105) 100 08/09/20 10:00 97 25 145/85 (105) 100 08/09/20 10:00 97 25 100 08/09/20 09:45 97 27 146/89 (108) 100 08/09/20 09:30 96 24 129/88 (102) 100 08/09/20 09:28 97 22 100 Mechanical Ventilator 40 08/09/20 09:23 101 26 40 08/09/20 09:15 100 30 143/86 (105) 100 08/09/20 09:10 40 08/09/20 09:00 91 33 144/83 (103) 100 Intake and Output 08/09/20 08/10/20 19:00 07:00 Intake Total 1555 ml 1726 ml Output Total 645 ml 1000 ml Balance 910 ml 726 ml Free Water 400 ml IV Total 1195 ml 1056 ml Tube Feeding 360 ml 270 ml Output Urine Total 645 ml 1000 ml Current Medications Medications (Trade) Dose Ordered Sig/Armand Route PRN Reason Start Time Stop Time Status Last Admin Dose Admin Acetaminophen (Tylenol) 650 mg Q6H PRN NG Mild Pain (Pain Scale 1-3) 08/08/20 14:00 09/07/20 13:59 08/09/20 20:31 Acetaminophen (Tylenol) 650 mg Q6H PRN NG Temp >100.5 08/08/20 14:00 09/07/20 13:59 Albuterol/ Ipratropium (Combivent Respimat) 1 puff Q4H PRN INH Shortness of Breath 08/04/20 10:00 09/03/20 09:59 Albuterol/ Ipratropium (Combivent Respimat) 1 puff Q8HR INH 08/04/20 09:30 09/03/20 09:29 08/06/20 14:00 Cefepime HCl 2 gm/ Dextrose 110 ml @ 220 mls/hr EVERY 12 HOURS IV 08/05/20 21:00 08/12/20 20:59 08/09/20 21:00 Chlorhexidine Gluconate (Maddie-Hex 2%) 1 applic DAILY@2000 TOPIC 08/07/20 20:00 11/05/20 19:59 08/09/20 20:29 Dextrose/Sodium Chloride 1,000 ml @ 75 mls/hr [id number] IV 08/06/20 11:00 09/05/20 10:59 08/09/20 20:32 Enoxaparin Sodium (Lovenox) 60 mg EVERY 12 HOURS SUBQ 08/05/20 21:00 11/03/20 20:59 08/09/20 20:32 Famotidine (Pepcid I.v.) 20 mg Q12HR IVP 08/06/20 11:00 09/05/20 10:59 08/09/20 20:29 Fentanyl Citrate 1000 mcg/Sodium Chloride 100 ml @ 1 mls/hr Q24H IV 08/08/20 16:00 08/10/20 15:59 08/10/20 03:09 Gabapentin (Neurontin) 300 mg EVERY 8 HOURS NG 08/08/20 22:00 09/04/20 08:59 08/10/20 05:45 Lorazepam (Ativan 2mg/ml 1ml) 0.5 mg Q6H PRN IV For Anxiety 08/04/20 21:30 08/11/20 21:29 Methylprednisolone Sodium Succinate (Solu-MEDROL) 40 mg EVERY 6 HOURS IVP 08/05/20 12:00 11/03/20 11:59 08/10/20 05:45 Metronidazole 100 ml @ 100 mls/hr Q8HR IVPB 08/09/20 22:00 08/16/20 21:59 08/10/20 05:45 Midazolam HCl 200 ml @ 0 mls/hr Q24H PRN IV To Patient Comfort 08/05/20 15:30 08/12/20 15:29 08/08/20 18:59 Potassium Phosphate 20 mm/ Sodium Chloride 281.6667 ml @ 46.944 m... ONCE ONCE IV 08/10/20 09:00 08/10/20 14:59 Vancomycin HCl 250 ml @ 166.667 mls/hr Q8HR@0400,1200,2000 IVPB 08/08/20 20:00 08/13/20 19:59 08/10/20 05:10 Vancomycin HCl ([facility] pharmacy to dose) 1 ea DAILY PRN MISC Per rx protocol 08/04/20 09:15 09/03/20 09:14 Laboratory Tests 08/09/20 09:30: Arterial Blood pH 7.450, Arterial Blood Partial Pressure CO2 44.0, Arterial Blood Partial Pressure O2 67.4L, Arterial Blood HCO3 29.9H, Arterial Blood Oxygen Saturation 92.5L, Arterial Blood Base Excess 5.3H, Chadwick Test Positive 08/09/20 10:50: Vancomycin Level Trough 13.5H 08/10/20 06:02: White Blood Count 11.8#H, Red Blood Count 3.43L, Hemoglobin 9.4L, Hematocrit 30.6L, Mean Corpuscular Volume 89, Mean Corpuscular Hemoglobin 27.4, Mean Corpuscular Hemoglobin Concent 30.7L, Red Cell Distribution Width 14.2, Platelet Count 237, Mean Platelet Volume 7.0, Neutrophils (%) (Auto) , Lymphocytes (%) (Auto) , Monocytes (%) (Auto) , Eosinophils (%) (Auto) , Basophils (%) (Auto) , Differential Total Cells Counted 100, Neutrophils % (Manual) 84H, Lymphocytes % (Manual) 6L, Monocytes % (Manual) 4, Myelocytes % 2H, Band Neutrophils 4, Platelet Estimate [Pending], Platelet Morphology [Pending], Polychromasia 1+, Hypochromasia 1+, Anisocytosis 1+, Schistocytes Occasional, Sodium Level 143, Potassium Level 3.7, Chloride Level 107, Carbon Dioxide Level 32, Anion Gap 4L, Blood Urea Nitrogen 18, Creatinine 0.7, Estimat Glomerular Filtration Rate > 60, Glucose Level 170H, Calcium Level 8.2L, Phosphorus Level 2.2L, Magnesium Level 2.3, Total Bilirubin 0.4, Aspartate Amino Transf (AST/SGOT) 50H, Alanine Aminotransferase (ALT/SGPT) 41, Alkaline Phosphatase 59, C-Reactive Protein, Quantitative 5.4H, Pro-B-Type Natriuretic Peptide 530H, Total Protein 6.0L, Albumin 2.0L, Globulin 4.0, Albumin/Globulin Ratio 0.5L Height (Feet): 6 Height (Inches): 1.00 Weight (Pounds): 190 General Appearance: no apparent distress EENT: other Cardiovascular: normal rate, arrhythmia Respiratory/Chest: decreased breath sounds Abdomen: distended Aashish Burgess MD Aug 10, 2020 08:51
[2020-08-10] MEDS: Cefepime 2gm/D5W 110ml IV SCH ×4 (09:00→21:51)
[2020-08-10] MEDS ORDERED: Potassium Phosphate 20 MM in NS 275 ML IV ONE (09:00)
[2020-08-10] MEDS: Enoxaparin 60mg Inj SUBQ SCH ×2 (09:02→20:29)
[2020-08-10] MEDS ORDERED: Heparin1,000 units/500ml Premix(Conc:2 units/ml) IV PRN (09:15)
[2020-08-10] MEDS ORDERED: Lidocaine 1% Plain 30 ml INJ PRN (09:15)
--- NOTE | 2020-08-10 10:24 | Pulmonology Progress Note ---
Subjective ROS Limited/Unobtainable: Yes Interval Events: Intubated 08/05/20 Constitutional: Reports: fatigue, other - on vent, no pressors ; Denies: fever HEENT: Repors: no symptoms Respiratory: Reports: shortness of breath Cardiovascular: Reports: no symptoms Gastrointestinal/Abdominal: Denies: nausea, vomiting, diarrhea Genitourinary: Reports: no symptoms Neurologic: Reports: no symptoms Psychiatric: Reports: other - NA Skin: Denies: rash Musculoskeletal: Reports: other - NA Allergies: Coded Allergies: PENICILLINS (Verified Allergy, Unknown, 03/10/20) PHENYTOIN (Verified Allergy, Unknown, 03/10/20) Objective Last 24 Hour Vital Signs Date Time Temp Pulse Resp B/P (MAP) Pulse Ox O2 Delivery O2 Flow Rate FiO2 08/10/20 10:00 83 26 123/73 (90) 100 08/10/20 09:45 82 23 121/75 (90) 100 08/10/20 09:30 79 29 123/79 (94) 100 08/10/20 09:15 82 26 127/82 (97) 100 08/10/20 09:00 79 27 121/72 (88) 100 08/10/20 08:45 82 24 122/74 (90) 100 08/10/20 08:30 77 17 114/67 (83) 100 08/10/20 08:15 81 18 113/71 (85) 100 08/10/20 08:00 71 08/10/20 08:00 Mechanical Ventilator 08/10/20 08:00 40 08/10/20 08:00 83 22 125/64 (84) 100 08/10/20 07:45 77 16 113/72 (86) 100 08/10/20 07:39 79 18 40 08/10/20 07:30 84 23 128/68 (88) 100 08/10/20 07:15 81 27 112/73 (86) 100 08/10/20 07:15 81 27 112/73 (86) 100 08/10/20 07:00 80 16 112/73 (86) 100 08/10/20 07:00 82 24 117/70 (86) 100 08/10/20 07:00 82 24 117/70 (86) 100 08/10/20 06:45 78 17 120/80 (93) 100 08/10/20 06:30 80 20 127/81 (96) 100 08/10/20 06:23 83 20 08/10/20 06:15 84 24 145/81 (102) 100 08/10/20 06:15 84 24 145/81 (102) 100 08/10/20 06:00 86 28 114/87 (96) 100 08/10/20 06:00 17 127/81 Mechanical Ventilator 40 08/10/20 06:00 86 28 114/87 (96) 100 08/10/20 05:00 32 124/81 Mechanical Ventilator 40 08/10/20 05:00 87 26 140/84 (102) 100 08/10/20 04:49 88 18 40 08/10/20 04:00 87 08/10/20 04:00 40 08/10/20 04:00 28 132/85 Mechanical Ventilator 40 08/10/20 04:00 Mechanical Ventilator 08/10/20 04:00 96.8 84 23 141/92 (108) 100 08/10/20 03:30 83 20 146/80 (102) 100 08/10/20 03:09 26 143/77 Mechanical Ventilator 40 08/10/20 03:01 84 19 40 08/10/20 03:00 81 29 143/77 (99) 100 08/10/20 02:30 79 21 139/77 (97) 100 08/10/20 02:00 17 122/74 Mechanical Ventilator 40 08/10/20 02:00 75 18 144/75 (98) 100 08/10/20 01:30 73 16 119/73 (88) 100 08/10/20 01:17 92 16 40 08/10/20 01:00 16 119/74 Endotracheal Tube 40 08/10/20 01:00 78 16 123/79 (94) 100 08/10/20 00:30 81 23 126/84 (98) 100 08/10/20 00:00 98.6 80 23 108/70 (83) 100 08/10/20 00:00 Mechanical Ventilator 08/10/20 00:00 40 08/10/20 00:00 31 131/76 Endotracheal Tube 40 08/10/20 00:00 87 08/09/20 23:30 90 18 117/73 (88) 100 08/09/20 23:25 93 17 40 08/09/20 23:00 85 31 116/76 (89) 100 08/09/20 23:00 31 116/75 Mechanical Ventilator 40 08/09/20 22:00 95 31 137/87 (104) 100 08/09/20 21:49 33 136/81 Endotracheal Tube 40 08/09/20 21:02 97 18 40 08/09/20 21:01 99.4 08/09/20 21:00 33 139/83 Mechanical Ventilator 40 08/09/20 21:00 100 35 135/83 (100) 100 08/09/20 20:32 33 139/83 Mechanical Ventilator 40 08/09/20 20:30 86 16 116/74 (88) 100 08/09/20 20:29 31 189/87 Endotracheal Tube 40 08/09/20 20:00 Mechanical Ventilator 08/09/20 20:00 40 08/09/20 20:00 92 08/09/20 20:00 99.4 91 16 128/78 (95) 100 08/09/20 19:44 95 17 40 08/09/20 19:30 99 38 139/78 (98) 100 08/09/20 19:00 91 16 121/81 (94) 100 08/09/20 18:45 94 16 133/83 (100) 100 08/09/20 18:30 94 16 123/79 (94) 100 08/09/20 18:15 94 16 120/72 (88) 100 08/09/20 18:00 100 17 131/82 (98) 100 08/09/20 17:59 100 29 135/89 (104) 100 08/09/20 17:45 125/86 (99) 100 08/09/20 17:30 91 16 127/80 (96) 100 08/09/20 17:15 94 21 129/83 (98) 100 08/09/20 17:00 100 30 154/86 (108) 100 08/09/20 16:45 96 18 131/90 (104) 100 08/09/20 16:30 97 30 133/81 (98) 100 08/09/20 16:15 104 29 135/91 (106) 100 08/09/20 16:00 96 08/09/20 16:00 Mechanical Ventilator 08/09/20 16:00 40 08/09/20 16:00 94 16 129/81 (97) 100 08/09/20 15:15 101 34 148/89 (108) 100 08/09/20 15:00 97 31 136/98 (111) 100 08/09/20 14:56 95 16 40 08/09/20 14:45 98 33 136/90 (105) 100 08/09/20 14:30 101 32 141/87 (105) 100 08/09/20 14:15 99 31 138/84 (102) 100 08/09/20 14:00 100 31 134/81 (98) 100 08/09/20 13:45 99 16 121/91 (101) 100 08/09/20 13:30 95 29 139/88 (105) 100 08/09/20 13:15 94 28 138/84 (102) 100 08/09/20 13:00 100 22 128/77 (94) 100 08/09/20 12:45 102 37 135/96 (109) 100 08/09/20 12:30 95 34 149/101 (117) 100 08/09/20 12:15 96 35 134/84 (101) 100 08/09/20 12:00 94 31 136/89 (105) 100 08/09/20 12:00 71 08/09/20 12:00 Mechanical Ventilator 08/09/20 11:00 97 26 136/97 (110) 100 08/09/20 10:45 99 25 136/97 (110) 100 08/09/20 10:34 97 19 40 08/09/20 10:30 97 20 141/90 (107) 100 Intake and Output 08/09/20 08/10/20 19:00 07:00 Intake Total 1555 ml 1726 ml Output Total 645 ml 1000 ml Balance 910 ml 726 ml Free Water 400 ml IV Total 1195 ml 1056 ml Tube Feeding 360 ml 270 ml Output Urine Total 645 ml 1000 ml General Appearance: no acute distress HEENT: normocephalic Respiratory: chest wall non-tender, lungs clear Cardiovascular: normal peripheral pulses, normal rate Abdomen: normal bowel sounds Extremities: no cyanosis Laboratory Tests 08/09/20 10:50: Vancomycin Level Trough 13.5H 08/10/20 06:02: White Blood Count 11.8#H, Red Blood Count 3.43L, Hemoglobin 9.4L, Hematocrit 30.6L, Mean Corpuscular Volume 89, Mean Corpuscular Hemoglobin 27.4, Mean Corpuscular Hemoglobin Concent 30.7L, Red Cell Distribution Width 14.2, Platelet Count 237, Mean Platelet Volume 7.0, Neutrophils (%) (Auto) , Lymphocytes (%) (Auto) , Monocytes (%) (Auto) , Eosinophils (%) (Auto) , Basophils (%) (Auto) , Differential Total Cells Counted 100, Neutrophils % (Manual) 84H, Lymphocytes % (Manual) 6L, Monocytes % (Manual) 4, Eosinophils % (Manual) 0, Basophils % (Manual) 0, Myelocytes % 2H, Band Neutrophils 4, Platelet Estimate Adequate, Platelet Morphology Normal, Polychromasia 1+, Hypochromasia 1+, Anisocytosis 1+, Schistocytes Occasional, Sodium Level 143, Potassium Level 3.7, Chloride Level 107, Carbon Dioxide Level 32, Anion Gap 4L, Blood Urea Nitrogen 18, Creatinine 0.7, Estimat Glomerular Filtration Rate > 60, Glucose Level 170H, Calcium Level 8.2L, Phosphorus Level 2.2L, Magnesium Level 2.3, Total Bilirubin 0.4, Aspartate Amino Transf (AST/SGOT) 50H, Alanine Aminotransferase (ALT/SGPT) 41, Alkaline Phosphatase 59, C-Reactive Protein, Quantitative 5.4H, Pro-B-Type Natriuretic Peptide 530H, Total Protein 6.0L, Albumin 2.0L, Globulin 4.0, Albumin/Globulin Ratio 0.5L 08/10/20 09:22: Arterial Blood pH 7.439, Arterial Blood Partial Pressure CO2 49.5H, Arterial Blood Partial Pressure O2 66.4L, Arterial Blood HCO3 32.8H, Arterial Blood Oxygen Saturation 92.6L, Arterial Blood Base Excess 7.6H, Chadwick Test Positive Current Medications Medications (Trade) Dose Ordered Sig/Armand Route PRN Reason Start Time Stop Time Status Last Admin Dose Admin Acetaminophen (Tylenol) 650 mg Q6H PRN NG Mild Pain (Pain Scale 1-3) 08/08/20 14:00 09/07/20 13:59 08/09/20 20:31 Acetaminophen (Tylenol) 650 mg Q6H PRN NG Temp >100.5 08/08/20 14:00 09/07/20 13:59 Albuterol/ Ipratropium (Combivent Respimat) 1 puff Q4H PRN INH Shortness of Breath 08/04/20 10:00 3/18/21 09:59 Albuterol/ Ipratropium (Combivent Respimat) 1 puff Q8HR INH 08/04/20 09:30 09/03/20 09:29 08/06/20 14:00 Cefepime HCl 2 gm/ Dextrose 110 ml @ 220 mls/hr EVERY 12 HOURS IV 08/05/20 21:00 08/12/20 20:59 08/10/20 09:00 Chlorhexidine Gluconate (Maddie-Hex 2%) 1 applic DAILY@2000 TOPIC 08/07/20 20:00 11/05/20 19:59 08/09/20 20:29 Dextrose/Sodium Chloride 1,000 ml @ 75 mls/hr [id number] IV 08/06/20 11:00 09/05/20 10:59 08/10/20 08:20 Enoxaparin Sodium (Lovenox) 60 mg EVERY 12 HOURS SUBQ 08/05/20 21:00 11/03/20 20:59 08/10/20 09:02 Famotidine (Pepcid I.v.) 20 mg Q12HR IVP 08/06/20 11:00 09/05/20 10:59 08/10/20 09:00 Fentanyl Citrate 1000 mcg/Sodium Chloride 100 ml @ 1 mls/hr Q24H IV 08/08/20 16:00 08/10/20 15:59 08/10/20 03:09 Gabapentin (Neurontin) 300 mg EVERY 8 HOURS NG 08/08/20 22:00 09/04/20 08:59 08/10/20 05:45 Heparin Sodium/ Sodium Chloride (Heparin 1000 units/500ml Premix) 1,000 unit ONCE PRN IV radiology procedure 08/10/20 09:15 08/12/20 09:14 Lidocaine HCl (Xylocaine 1% 30ml) 30 ml ONCE PRN INJ radiology procedure 08/10/20 09:15 08/12/20 09:14 Lorazepam (Ativan 2mg/ml 1ml) 0.5 mg Q6H PRN IV For Anxiety 08/04/20 21:30 08/11/20 21:29 Methylprednisolone Sodium Succinate (Solu-MEDROL) 40 mg EVERY 6 HOURS IVP 08/05/20 12:00 11/03/20 11:59 08/10/20 05:45 Metronidazole 100 ml @ 100 mls/hr Q8HR IVPB 08/09/20 22:00 08/16/20 21:59 08/10/20 05:45 Midazolam HCl 200 ml @ 0 mls/hr Q24H PRN IV To Patient Comfort 08/05/20 15:30 08/12/20 15:29 08/08/20 18:59 Potassium Phosphate 20 mm/ Sodium Chloride 281.6667 ml @ 46.944 m... ONCE ONCE IV 08/10/20 09:00 08/10/20 14:59 08/10/20 09:06 Vancomycin HCl 250 ml @ 166.667 mls/hr Q8HR@0400,1200,2000 IVPB 08/08/20 20:00 08/13/20 19:59 08/10/20 05:10 Vancomycin HCl ([facility] pharmacy to dose) 1 ea DAILY PRN MISC Per rx protocol 08/04/20 09:15 09/03/20 09:14 Assessment/Plan Assessment/Plan 1. UTI -On empiric antibiotics -Follow-up UCx negative (08/03) 2. Pneumonia -On broad-spectrum antibiotics - CXR concerning for volume loss; reviewed chest CT - CT chest shows dense RUL and RML consolidation - High suspicion for RBI narrowing ? need to rule out endobronchial obstruction 3. COPD exacerbation -Now intubated 4. Respiratory distress - Continue steroids 5. History of seizures -Risk of aspiration -Monitor for seizure activity 6. Elevated CRP -D-dimer wnl -His outpatient medications include Eliquis (hx of A fib?) - Continue Eliquis 7. Monitor carefully in ICU S/p intubation On Levophed; low dose; will attempt to dc Continue AC mode; will continue weaning FiO2 90->80 ->40% PEEP 5 Micha Schneider MD Aug 10, 2020 10:24
--- NOTE | 2020-08-10 11:29 | Surgery Progress Note ---
Surgery Progress Note Subjective Additional Comments Patient seen exam bedside. From central line not functioning well and also needs to be replaced. Plan PICC today. Unfortunately patient cannot consent and no family available or next of kin. Given patient's condition critically ill in intensive care unit on support requiring venous access for medications fluids and care plan a PICC line indicated and recommended. Discussed with the medical teams as well and will plan for PICC line placement today as medically necessary. Radiology to proceed Objective Last 24 Hour Vital Signs Date Time Temp Pulse Resp B/P (MAP) Pulse Ox O2 Delivery O2 Flow Rate FiO2 08/10/20 10:00 83 26 123/73 (90) 100 08/10/20 09:45 82 23 121/75 (90) 100 08/10/20 09:30 79 29 123/79 (94) 100 08/10/20 09:15 82 26 127/82 (97) 100 08/10/20 09:00 79 27 121/72 (88) 100 08/10/20 08:45 82 24 122/74 (90) 100 08/10/20 08:30 77 17 114/67 (83) 100 08/10/20 08:15 81 18 113/71 (85) 100 08/10/20 08:00 71 08/10/20 08:00 Mechanical Ventilator 08/10/20 08:00 40 08/10/20 08:00 83 22 125/64 (84) 100 08/10/20 07:45 77 16 113/72 (86) 100 08/10/20 07:39 79 18 40 08/10/20 07:30 84 23 128/68 (88) 100 08/10/20 07:15 81 27 112/73 (86) 100 08/10/20 07:15 81 27 112/73 (86) 100 08/10/20 07:00 80 16 112/73 (86) 100 08/10/20 07:00 82 24 117/70 (86) 100 08/10/20 07:00 82 24 117/70 (86) 100 08/10/20 06:45 78 17 120/80 (93) 100 08/10/20 06:30 80 20 127/81 (96) 100 08/10/20 06:23 83 20 08/10/20 06:15 84 24 145/81 (102) 100 08/10/20 06:15 84 24 145/81 (102) 100 08/10/20 06:00 86 28 114/87 (96) 100 08/10/20 06:00 17 127/81 Mechanical Ventilator 40 08/10/20 06:00 86 28 114/87 (96) 100 08/10/20 05:00 32 124/81 Mechanical Ventilator 40 08/10/20 05:00 87 26 140/84 (102) 100 08/10/20 04:49 88 18 40 08/10/20 04:00 87 08/10/20 04:00 40 08/10/20 04:00 28 132/85 Mechanical Ventilator 40 08/10/20 04:00 Mechanical Ventilator 08/10/20 04:00 96.8 84 23 141/92 (108) 100 08/10/20 03:30 83 20 146/80 (102) 100 08/10/20 03:09 26 143/77 Mechanical Ventilator 40 08/10/20 03:01 84 19 40 08/10/20 03:00 81 29 143/77 (99) 100 08/10/20 02:30 79 21 139/77 (97) 100 08/10/20 02:00 17 122/74 Mechanical Ventilator 40 08/10/20 02:00 75 18 144/75 (98) 100 08/10/20 01:30 73 16 119/73 (88) 100 08/10/20 01:17 92 16 40 08/10/20 01:00 16 119/74 Endotracheal Tube 40 08/10/20 01:00 78 16 123/79 (94) 100 08/10/20 00:30 81 23 126/84 (98) 100 08/10/20 00:00 98.6 80 23 108/70 (83) 100 08/10/20 00:00 Mechanical Ventilator 08/10/20 00:00 40 08/10/20 00:00 31 131/76 Endotracheal Tube 40 08/10/20 00:00 87 08/09/20 23:30 90 18 117/73 (88) 100 08/09/20 23:25 93 17 40 08/09/20 23:00 85 31 116/76 (89) 100 08/09/20 23:00 31 116/75 Mechanical Ventilator 40 08/09/20 22:00 95 31 137/87 (104) 100 08/09/20 21:49 33 136/81 Endotracheal Tube 40 08/09/20 21:02 97 18 40 08/09/20 21:01 99.4 08/09/20 21:00 33 139/83 Mechanical Ventilator 40 08/09/20 21:00 100 35 135/83 (100) 100 08/09/20 20:32 33 139/83 Mechanical Ventilator 40 08/09/20 20:30 86 16 116/74 (88) 100 08/09/20 20:29 31 189/87 Endotracheal Tube 40 08/09/20 20:00 Mechanical Ventilator 08/09/20 20:00 40 08/09/20 20:00 92 08/09/20 20:00 99.4 91 16 128/78 (95) 100 08/09/20 19:44 95 17 40 08/09/20 19:30 99 38 139/78 (98) 100 08/09/20 19:00 91 16 121/81 (94) 100 08/09/20 18:45 94 16 133/83 (100) 100 08/09/20 18:30 94 16 123/79 (94) 100 08/09/20 18:15 94 16 120/72 (88) 100 08/09/20 18:00 100 17 131/82 (98) 100 08/09/20 17:59 100 29 135/89 (104) 100 08/09/20 17:45 125/86 (99) 100 08/09/20 17:30 91 16 127/80 (96) 100 08/09/20 17:15 94 21 129/83 (98) 100 08/09/20 17:00 100 30 154/86 (108) 100 08/09/20 16:45 96 18 131/90 (104) 100 08/09/20 16:30 97 30 133/81 (98) 100 08/09/20 16:15 104 29 135/91 (106) 100 08/09/20 16:00 96 08/09/20 16:00 Mechanical Ventilator 08/09/20 16:00 40 08/09/20 16:00 94 16 129/81 (97) 100 08/09/20 15:15 101 34 148/89 (108) 100 08/09/20 15:00 97 31 136/98 (111) 100 08/09/20 14:56 95 16 40 08/09/20 14:45 98 33 136/90 (105) 100 08/09/20 14:30 101 32 141/87 (105) 100 08/09/20 14:15 99 31 138/84 (102) 100 08/09/20 14:00 100 31 134/81 (98) 100 08/09/20 13:45 99 16 121/91 (101) 100 08/09/20 13:30 95 29 139/88 (105) 100 08/09/20 13:15 94 28 138/84 (102) 100 08/09/20 13:00 100 22 128/77 (94) 100 08/09/20 12:45 102 37 135/96 (109) 100 08/09/20 12:30 95 34 149/101 (117) 100 08/09/20 12:15 96 35 134/84 (101) 100 08/09/20 12:00 94 31 136/89 (105) 100 08/09/20 12:00 71 08/09/20 12:00 Mechanical Ventilator I&O Intake and Output 08/09/20 08/10/20 19:00 07:00 Intake Total 1555 ml 1726 ml Output Total 645 ml 1000 ml Balance 910 ml 726 ml Free Water 400 ml IV Total 1195 ml 1056 ml Tube Feeding 360 ml 270 ml Output Urine Total 645 ml 1000 ml Dressing: dry Wound: clean Cardiovascular: RSR Respiratory: clear, decreased breath sounds Abdomen: soft, non-tender, present bowel sounds, non-distended Extremities: edema, no tenderness, no cyanosis, other Laboratory Tests Test 08/10/20 06:02 08/10/20 09:22 White Blood Count 11.8 K/UL (4.8-10.8) #H Red Blood Count 3.43 M/UL (4.70-6.10) L Hemoglobin 9.4 G/DL (14.2-18.0) L Hematocrit 30.6 % (42.0-52.0) L Mean Corpuscular Volume 89 FL (80-99) Mean Corpuscular Hemoglobin 27.4 PG (27.0-31.0) Mean Corpuscular Hemoglobin Concent 30.7 G/DL (32.0-36.0) L Red Cell Distribution Width 14.2 % (11.6-14.8) Platelet Count 237 K/UL (150-450) Mean Platelet Volume 7.0 FL (6.5-10.1) Neutrophils (%) (Auto) % (45.0-75.0) Lymphocytes (%) (Auto) % (20.0-45.0) Monocytes (%) (Auto) % (1.0-10.0) Eosinophils (%) (Auto) % (0.0-3.0) Basophils (%) (Auto) % (0.0-2.0) Differential Total Cells Counted 100 Neutrophils % (Manual) 84 % (45-75) H Lymphocytes % (Manual) 6 % (20-45) L Monocytes % (Manual) 4 % (1-10) Eosinophils % (Manual) 0 % (0-3) Basophils % (Manual) 0 % (0-2) Myelocytes % 2 % (0-0) H Band Neutrophils 4 % (0-8) Platelet Estimate Adequate Platelet Morphology Normal Polychromasia 1+ Hypochromasia 1+ Anisocytosis 1+ Schistocytes Occasional Sodium Level 143 MMOL/L (136-145) Potassium Level 3.7 MMOL/L (3.5-5.1) Chloride Level 107 MMOL/L (98-107) Carbon Dioxide Level 32 MMOL/L (21-32) Anion Gap 4 mmol/L (5-15) L Blood Urea Nitrogen 18 mg/dL (7-18) Creatinine 0.7 MG/DL (0.55-1.30) Estimat Glomerular Filtration Rate > 60 mL/min (>60) Glucose Level 170 MG/DL (74-106) H Calcium Level 8.2 MG/DL (8.5-10.1) L Phosphorus Level 2.2 MG/DL (2.5-4.9) L Magnesium Level 2.3 MG/DL (1.8-2.4) Total Bilirubin 0.4 MG/DL (0.2-1.0) Aspartate Amino Transf (AST/SGOT) 50 U/L (15-37) H Alanine Aminotransferase (ALT/SGPT) 41 U/L (12-78) Alkaline Phosphatase 59 U/L (46-116) C-Reactive Protein, Quantitative 5.4 mg/dL (0.00-0.90) H Pro-B-Type Natriuretic Peptide 530 pg/mL (0-125) H Total Protein 6.0 G/DL (6.4-8.2) L Albumin 2.0 G/DL (3.4-5.0) L Globulin 4.0 g/dL Albumin/Globulin Ratio 0.5 (1.0-2.7) L Arterial Blood pH 7.439 (7.350-7.450) Arterial Blood Partial Pressure CO2 49.5 mmHg (35.0-45.0) H Arterial Blood Partial Pressure O2 66.4 mmHg (75.0-100.0) L Arterial Blood HCO3 32.8 mmol/L (22.0-26.0) H Arterial Blood Oxygen Saturation 92.6 % (95-100) L Arterial Blood Base Excess 7.6 (-2-2) H Chadwick Test Positive Plan Problems: (1) Abdominal distension Assessment & Plan: 79M abdominal distention, respiratory decline, altered mental status. on exam noted abd soft, mild distended, non tender. no n/v/f/c. unlikely aspiration. non tender one exam. pending urine and covid test. no acute surgical intervention. hold on ct. kub ordered. will follow with exam and recs. keep npo for now. iv fluids. respiratory pulm support. will follow with recs thank you decline since admission now intubated ng tube to suction no acute surgical intervention cont abx kub noted wean vent enema when stable The rectum is considerably distended with stool. Considerable stool is also seen in the descending colon. The colon is diffusely gas filled, upper limits of normal in caliber. No significant small bowel gas demonstrated. No masses or unusual calcifications. The included lung bases demonstrate bilateral right greater than left pleural effusions. There is a Butler catheter Impression: Distended stool-filled rectum, fecal impaction possible Gas-filled upper limits of normal caliber colon, nonspecific Bilateral right greater than left pleural effusions (2) UTI (urinary tract infection) (3) Pneumonia (4) Multiple pulmonary nodules (5) Respiratory failure with hypoxia (6) Pneumonia due to COVID-19 virus (7) History of CVA (cerebrovascular accident) (8) COPD (chronic obstructive pulmonary disease) (9) HTN (hypertension) (10) Hx of prostatic malignancy (11) Major depression (12) Seizure disorder Destin Brown Aug 10, 2020 11:29
--- NOTE | 2020-08-10 13:58 | NUR ---
[employer] SI: RESP FAILURE VENT SUPPORT,SEPSIS T. 96.8 HR 87 RR 26 B/P 141/92 AC 16 TV 500 FIO2 40% PEEP 5 WBC 11.8 IS: K-PHOS IV FLAGYL IV VANCO IV FENTANYL IV IVF D5NS @ 50ML/HR VERSED GTT SOLU MEDROL IV ICU STATUS
[2020-08-10] MEDS ORDERED: D5 1/2NS 1000ml IV ONE (14:03)
[2020-08-10] MEDS ORDERED: NS 275ml ONE (14:03)
--- NOTE | 2020-08-10 14:10 | Cardiac Electrophysiology PN ---
Assessment/Plan Assessment/Plan 1. Respiratory failure. On the Vent and IV antibiotic. On 40% Fio2 Echocardiogram showed EF 50% 2. Questionable congestive heart failure. EF normal and BNP is only 39. 3. History of COVID pneumonia, status post vaccination for COVID. Currently on IV antibiotic and prednisone. Now off isolation 4. Questionable history of atrial fibrillation versus DVT. The patient is on Eliquis 2.5 mg b.i.d. Currently in SR 5. Full Code Subjective Subjective In ICU on 40% Fio2 and PEEP 5 Off Levo Objective Last 24 Hour Vital Signs Date Time Temp Pulse Resp B/P (MAP) Pulse Ox O2 Delivery O2 Flow Rate FiO2 08/10/20 14:00 85 23 126/77 (93) 100 08/10/20 14:00 79 16 123/79 (94) 100 08/10/20 13:45 82 16 99/58 (72) 100 08/10/20 13:30 84 16 96/65 (75) 100 08/10/20 13:15 85 20 118/72 (87) 100 08/10/20 13:00 82 28 119/77 (91) 100 08/10/20 12:45 85 23 126/77 (93) 100 08/10/20 12:30 87 19 125/84 (98) 100 08/10/20 12:15 89 22 141/97 (112) 100 08/10/20 12:00 88 24 134/84 (101) 100 08/10/20 12:00 Mechanical Ventilator 08/10/20 12:00 40 08/10/20 12:00 87 08/10/20 11:45 85 23 123/82 (96) 100 08/10/20 11:38 86 18 40 08/10/20 11:30 86 20 131/78 (95) 100 08/10/20 11:15 89 23 140/96 (111) 100 08/10/20 11:00 84 23 123/83 (96) 100 08/10/20 10:00 83 26 123/73 (90) 100 08/10/20 09:45 82 23 121/75 (90) 100 08/10/20 09:30 79 29 123/79 (94) 100 08/10/20 09:15 82 26 127/82 (97) 100 08/10/20 09:00 79 27 121/72 (88) 100 08/10/20 08:45 82 24 122/74 (90) 100 08/10/20 08:30 77 17 114/67 (83) 100 08/10/20 08:15 81 18 113/71 (85) 100 08/10/20 08:00 71 08/10/20 08:00 Mechanical Ventilator 08/10/20 08:00 40 08/10/20 08:00 83 22 125/64 (84) 100 08/10/20 07:45 77 16 113/72 (86) 100 08/10/20 07:39 79 18 40 08/10/20 07:30 84 23 128/68 (88) 100 08/10/20 07:15 81 27 112/73 (86) 100 08/10/20 07:15 81 27 112/73 (86) 100 08/10/20 07:00 80 16 112/73 (86) 100 08/10/20 07:00 82 24 117/70 (86) 100 08/10/20 07:00 82 24 117/70 (86) 100 08/10/20 06:45 78 17 120/80 (93) 100 08/10/20 06:30 80 20 127/81 (96) 100 08/10/20 06:23 83 20 08/10/20 06:15 84 24 145/81 (102) 100 08/10/20 06:15 84 24 145/81 (102) 100 08/10/20 06:00 86 28 114/87 (96) 100 08/10/20 06:00 17 127/81 Mechanical Ventilator 40 08/10/20 06:00 86 28 114/87 (96) 100 08/10/20 05:00 32 124/81 Mechanical Ventilator 40 08/10/20 05:00 87 26 140/84 (102) 100 08/10/20 04:49 88 18 40 08/10/20 04:00 87 08/10/20 04:00 40 08/10/20 04:00 28 132/85 Mechanical Ventilator 40 08/10/20 04:00 Mechanical Ventilator 08/10/20 04:00 96.8 84 23 141/92 (108) 100 08/10/20 03:30 83 20 146/80 (102) 100 08/10/20 03:09 26 143/77 Mechanical Ventilator 40 08/10/20 03:01 84 19 40 08/10/20 03:00 81 29 143/77 (99) 100 08/10/20 02:30 79 21 139/77 (97) 100 08/10/20 02:00 17 122/74 Mechanical Ventilator 40 08/10/20 02:00 75 18 144/75 (98) 100 08/10/20 01:30 73 16 119/73 (88) 100 08/10/20 01:17 92 16 40 08/10/20 01:00 16 119/74 Endotracheal Tube 40 08/10/20 01:00 78 16 123/79 (94) 100 08/10/20 00:30 81 23 126/84 (98) 100 08/10/20 00:00 98.6 80 23 108/70 (83) 100 08/10/20 00:00 Mechanical Ventilator 08/10/20 00:00 40 08/10/20 00:00 31 131/76 Endotracheal Tube 40 08/10/20 00:00 87 08/09/20 23:30 90 18 117/73 (88) 100 08/09/20 23:25 93 17 40 08/09/20 23:00 85 31 116/76 (89) 100 08/09/20 23:00 31 116/75 Mechanical Ventilator 40 08/09/20 22:00 95 31 137/87 (104) 100 08/09/20 21:49 33 136/81 Endotracheal Tube 40 08/09/20 21:02 97 18 40 08/09/20 21:01 99.4 08/09/20 21:00 33 139/83 Mechanical Ventilator 40 08/09/20 21:00 100 35 135/83 (100) 100 08/09/20 20:32 33 139/83 Mechanical Ventilator 40 08/09/20 20:30 86 16 116/74 (88) 100 08/09/20 20:29 31 189/87 Endotracheal Tube 40 08/09/20 20:00 Mechanical Ventilator 08/09/20 20:00 40 08/09/20 20:00 92 08/09/20 20:00 99.4 91 16 128/78 (95) 100 08/09/20 19:44 95 17 40 08/09/20 19:30 99 38 139/78 (98) 100 08/09/20 19:00 91 16 121/81 (94) 100 08/09/20 18:45 94 16 133/83 (100) 100 08/09/20 18:30 94 16 123/79 (94) 100 08/09/20 18:15 94 16 120/72 (88) 100 08/09/20 18:00 100 17 131/82 (98) 100 08/09/20 17:59 100 29 135/89 (104) 100 08/09/20 17:45 125/86 (99) 100 08/09/20 17:30 91 16 127/80 (96) 100 08/09/20 17:15 94 21 129/83 (98) 100 08/09/20 17:00 100 30 154/86 (108) 100 08/09/20 16:45 96 18 131/90 (104) 100 08/09/20 16:30 97 30 133/81 (98) 100 08/09/20 16:15 104 29 135/91 (106) 100 08/09/20 16:00 96 08/09/20 16:00 Mechanical Ventilator 08/09/20 16:00 40 08/09/20 16:00 94 16 129/81 (97) 100 08/09/20 15:15 101 34 148/89 (108) 100 08/09/20 15:00 97 31 136/98 (111) 100 08/09/20 14:56 95 16 40 08/09/20 14:45 98 33 136/90 (105) 100 08/09/20 14:30 101 32 141/87 (105) 100 08/09/20 14:15 99 31 138/84 (102) 100 Intake and Output 08/09/20 08/10/20 19:00 07:00 Intake Total 1555 ml 1726 ml Output Total 645 ml 1000 ml Balance 910 ml 726 ml Free Water 400 ml IV Total 1195 ml 1056 ml Tube Feeding 360 ml 270 ml Output Urine Total 645 ml 1000 ml Laboratory Tests Test 08/10/20 06:02 08/10/20 09:22 White Blood Count 11.8 K/UL (4.8-10.8) #H Red Blood Count 3.43 M/UL (4.70-6.10) L Hemoglobin 9.4 G/DL (14.2-18.0) L Hematocrit 30.6 % (42.0-52.0) L Mean Corpuscular Volume 89 FL (80-99) Mean Corpuscular Hemoglobin 27.4 PG (27.0-31.0) Mean Corpuscular Hemoglobin Concent 30.7 G/DL (32.0-36.0) L Red Cell Distribution Width 14.2 % (11.6-14.8) Platelet Count 237 K/UL (150-450) Mean Platelet Volume 7.0 FL (6.5-10.1) Neutrophils (%) (Auto) % (45.0-75.0) Lymphocytes (%) (Auto) % (20.0-45.0) Monocytes (%) (Auto) % (1.0-10.0) Eosinophils (%) (Auto) % (0.0-3.0) Basophils (%) (Auto) % (0.0-2.0) Differential Total Cells Counted 100 Neutrophils % (Manual) 84 % (45-75) H Lymphocytes % (Manual) 6 % (20-45) L Monocytes % (Manual) 4 % (1-10) Eosinophils % (Manual) 0 % (0-3) Basophils % (Manual) 0 % (0-2) Myelocytes % 2 % (0-0) H Band Neutrophils 4 % (0-8) Platelet Estimate Adequate Platelet Morphology Normal Polychromasia 1+ Hypochromasia 1+ Anisocytosis 1+ Schistocytes Occasional Sodium Level 143 MMOL/L (136-145) Potassium Level 3.7 MMOL/L (3.5-5.1) Chloride Level 107 MMOL/L (98-107) Carbon Dioxide Level 32 MMOL/L (21-32) Anion Gap 4 mmol/L (5-15) L Blood Urea Nitrogen 18 mg/dL (7-18) Creatinine 0.7 MG/DL (0.55-1.30) Estimat Glomerular Filtration Rate > 60 mL/min (>60) Glucose Level 170 MG/DL (74-106) H Calcium Level 8.2 MG/DL (8.5-10.1) L Phosphorus Level 2.2 MG/DL (2.5-4.9) L Magnesium Level 2.3 MG/DL (1.8-2.4) Total Bilirubin 0.4 MG/DL (0.2-1.0) Aspartate Amino Transf (AST/SGOT) 50 U/L (15-37) H Alanine Aminotransferase (ALT/SGPT) 41 U/L (12-78) Alkaline Phosphatase 59 U/L (46-116) C-Reactive Protein, Quantitative 5.4 mg/dL (0.00-0.90) H Pro-B-Type Natriuretic Peptide 530 pg/mL (0-125) H Total Protein 6.0 G/DL (6.4-8.2) L Albumin 2.0 G/DL (3.4-5.0) L Globulin 4.0 g/dL Albumin/Globulin Ratio 0.5 (1.0-2.7) L Arterial Blood pH 7.439 (7.350-7.450) Arterial Blood Partial Pressure CO2 49.5 mmHg (35.0-45.0) H Arterial Blood Partial Pressure O2 66.4 mmHg (75.0-100.0) L Arterial Blood HCO3 32.8 mmol/L (22.0-26.0) H Arterial Blood Oxygen Saturation 92.6 % (95-100) L Arterial Blood Base Excess 7.6 (-2-2) H Chadwick Test Positive Objective HEAD AND NECK: Orally intubated LUNGS: Coarse rhonchi. CARDIOVASCULAR: Regular S1 and S2 with no gallop. ABDOMEN: Soft. EXTREMITIES: 1 plus pitting edema. Devyn Magdaleno MD Aug 10, 2020 14:10
--- NOTE | 2020-08-10 15:20 | Pre-Procedure Note/Attestation ---
Pre-Procedure Note/Attestation Complete Prior to Procedure Planned Procedure: not applicable Procedure Narrative: picc insertion Indications for Procedure Pre-Operative Diagnosis: need iv access Attestation informed consent obtained by prior to the procedure, this was verified before starting the procedure. Valdo Xie M.D. Aug 10, 2020 15:20
--- NOTE | 2020-08-10 15:24 | Diagnostic Imaging Report ---
Indications: Needs long-term IV access Technique: Procedure performed at bedside. Procedural timeout performed. Ultrasound confirms patent compressible right brachial vein. Total sterile technique, including sterile probe cover and sterile gel, sterile gloves, hand hygiene, hat, mask,, sterile gown, large sterile drape, and preparation with 2% chlorhexidine utilized. Local anesthesia with 1% lidocaine. Under real-time ultrasound guidance, puncture right brachial vein using 21-gauge needle, passage 0.018 guidewire, exchange for 4.5 [place] peel-away sheath. 4French dual-lumen power PICC cut to 37 cm. It was inserted through the peel-away sheath. Peel-away sheath and guidewire removed. Catheter fixed to the skin. Both catheter ports aspirated and flushed. Patient tolerated procedure well, without immediate complication. Followup chest x-ray obtained, documents catheter tip position at the upper SVC Impression: Successful bedside placement of right arm PICC under sonographic guidance, as described above.
--- NOTE | 2020-08-10 15:26 | NUR ---
RADIOLOGY NOTE: RIGHT UPPER EXTREMITY PICC LINE PLACEMENT BY DR. COELHO AT 1425 HRS. FA
[2020-08-10] MEDS ORDERED: fentaNYL Citrate 1,000 MCG in NS 100 ML IV SCH (17:00)
--- NOTE | 2020-08-10 18:56 | Internal Med Progress Note ---
Subjective Date of Service: Aug 10, 2020 Physician Name Pablo Hickman Attending Physician Torres Saul MD Current Medications Medications (Trade) Dose Ordered Sig/Armand Route PRN Reason Start Time Stop Time Status Last Admin Dose Admin Acetaminophen (Tylenol) 650 mg Q6H PRN NG Mild Pain (Pain Scale 1-3) 08/08/20 14:00 09/07/20 13:59 08/09/20 20:31 Acetaminophen (Tylenol) 650 mg Q6H PRN NG Temp >100.5 08/08/20 14:00 09/07/20 13:59 Albuterol/ Ipratropium (Combivent Respimat) 1 puff Q4H PRN INH Shortness of Breath 08/04/20 10:00 09/03/20 09:59 Albuterol/ Ipratropium (Combivent Respimat) 1 puff Q8HR INH 08/04/20 09:30 09/03/20 09:29 08/06/20 14:00 Cefepime HCl 2 gm/ Dextrose 110 ml @ 220 mls/hr EVERY 12 HOURS IV 08/05/20 21:00 08/12/20 20:59 08/10/20 09:00 Chlorhexidine Gluconate (Maddie-Hex 2%) 1 applic DAILY@2000 TOPIC 08/07/20 20:00 11/05/20 19:59 08/09/20 20:29 Dextrose/Sodium Chloride 1,000 ml @ 75 mls/hr [id number] IV 08/06/20 11:00 09/05/20 10:59 08/10/20 08:20 Enoxaparin Sodium (Lovenox) 60 mg EVERY 12 HOURS SUBQ 08/05/20 21:00 11/03/20 20:59 08/10/20 09:02 Famotidine (Pepcid I.v.) 20 mg Q12HR IVP 08/06/20 11:00 09/05/20 10:59 08/10/20 09:00 Fentanyl Citrate 250 ml @ 0 mls/hr Q24H PRN IV . 08/10/20 23:00 08/12/20 22:59 Fentanyl Citrate 1000 mcg/Sodium Chloride 120 ml @ 12 mls/hr Q24H IV 08/10/20 17:00 08/10/20 23:59 08/10/20 16:45 Gabapentin (Neurontin) 300 mg EVERY 8 HOURS NG 08/08/20 22:00 09/04/20 08:59 08/10/20 14:00 Heparin Sodium/ Sodium Chloride (Heparin 1000 units/500ml Premix) 1,000 unit ONCE PRN IV radiology procedure 08/10/20 09:15 08/12/20 09:14 Lidocaine HCl (Xylocaine 1% 30ml) 30 ml ONCE PRN INJ radiology procedure 08/10/20 09:15 08/12/20 09:14 Lorazepam (Ativan 2mg/ml 1ml) 0.5 mg Q6H PRN IV For Anxiety 08/04/20 21:30 08/11/20 21:29 Methylprednisolone Sodium Succinate (Solu-MEDROL) 40 mg EVERY 6 HOURS IVP 08/05/20 12:00 11/03/20 11:59 08/10/20 12:00 Metronidazole 100 ml @ 100 mls/hr Q8HR IVPB 08/09/20 22:00 08/16/20 21:59 08/10/20 14:00 Midazolam HCl 200 ml @ 0 mls/hr Q24H PRN IV To Patient Comfort 08/05/20 15:30 08/12/20 15:29 08/08/20 18:59 Vancomycin HCl 250 ml @ 166.667 mls/hr Q8HR@0400,1200,2000 IVPB 08/08/20 20:00 08/13/20 19:59 08/10/20 12:00 Vancomycin HCl ([facility] pharmacy to dose) 1 ea DAILY PRN MISC Per rx protocol 08/04/20 09:15 09/03/20 09:14 Allergies: Coded Allergies: PENICILLINS (Verified Allergy, Unknown, 03/10/20) PHENYTOIN (Verified Allergy, Unknown, 03/10/20) ROS Limited/Unobtainable: Yes Subjective 79 YO M admitted with respiratory distress. Now pneumonia. Cover for Int Allen- Dr Saul. ICU. Intubated and sedated Objective Last Vital Signs Date Time Temp Pulse Resp B/P (MAP) Pulse Ox O2 Delivery O2 Flow Rate FiO2 08/10/20 16:45 16 96/54 35 08/10/20 16:15 85 100 08/10/20 16:00 Mechanical Ventilator 08/10/20 04:00 96.8 08/08/20 06:02 10.0 Laboratory Tests Test 08/10/20 06:02 08/10/20 09:22 White Blood Count 11.8 K/UL (4.8-10.8) #H Red Blood Count 3.43 M/UL (4.70-6.10) L Hemoglobin 9.4 G/DL (14.2-18.0) L Hematocrit 30.6 % (42.0-52.0) L Mean Corpuscular Volume 89 FL (80-99) Mean Corpuscular Hemoglobin 27.4 PG (27.0-31.0) Mean Corpuscular Hemoglobin Concent 30.7 G/DL (32.0-36.0) L Red Cell Distribution Width 14.2 % (11.6-14.8) Platelet Count 237 K/UL (150-450) Mean Platelet Volume 7.0 FL (6.5-10.1) Neutrophils (%) (Auto) % (45.0-75.0) Lymphocytes (%) (Auto) % (20.0-45.0) Monocytes (%) (Auto) % (1.0-10.0) Eosinophils (%) (Auto) % (0.0-3.0) Basophils (%) (Auto) % (0.0-2.0) Differential Total Cells Counted 100 Neutrophils % (Manual) 84 % (45-75) H Lymphocytes % (Manual) 6 % (20-45) L Monocytes % (Manual) 4 % (1-10) Eosinophils % (Manual) 0 % (0-3) Basophils % (Manual) 0 % (0-2) Myelocytes % 2 % (0-0) H Band Neutrophils 4 % (0-8) Platelet Estimate Adequate Platelet Morphology Normal Polychromasia 1+ Hypochromasia 1+ Anisocytosis 1+ Schistocytes Occasional Sodium Level 143 MMOL/L (136-145) Potassium Level 3.7 MMOL/L (3.5-5.1) Chloride Level 107 MMOL/L (98-107) Carbon Dioxide Level 32 MMOL/L (21-32) Anion Gap 4 mmol/L (5-15) L Blood Urea Nitrogen 18 mg/dL (7-18) Creatinine 0.7 MG/DL (0.55-1.30) Estimat Glomerular Filtration Rate > 60 mL/min (>60) Glucose Level 170 MG/DL (74-106) H Calcium Level 8.2 MG/DL (8.5-10.1) L Phosphorus Level 2.2 MG/DL (2.5-4.9) L Magnesium Level 2.3 MG/DL (1.8-2.4) Total Bilirubin 0.4 MG/DL (0.2-1.0) Aspartate Amino Transf (AST/SGOT) 50 U/L (15-37) H Alanine Aminotransferase (ALT/SGPT) 41 U/L (12-78) Alkaline Phosphatase 59 U/L (46-116) C-Reactive Protein, Quantitative 5.4 mg/dL (0.00-0.90) H Pro-B-Type Natriuretic Peptide 530 pg/mL (0-125) H Total Protein 6.0 G/DL (6.4-8.2) L Albumin 2.0 G/DL (3.4-5.0) L Globulin 4.0 g/dL Albumin/Globulin Ratio 0.5 (1.0-2.7) L Arterial Blood pH 7.439 (7.350-7.450) Arterial Blood Partial Pressure CO2 49.5 mmHg (35.0-45.0) H Arterial Blood Partial Pressure O2 66.4 mmHg (75.0-100.0) L Arterial Blood HCO3 32.8 mmol/L (22.0-26.0) H Arterial Blood Oxygen Saturation 92.6 % (95-100) L Arterial Blood Base Excess 7.6 (-2-2) H Chadwick Test Positive Intake and Output 08/09/20 08/10/20 19:00 07:00 Intake Total 1555 ml 1731 ml Output Total 645 ml 1000 ml Balance 910 ml 731 ml Free Water 400 ml IV Total 1195 ml 1061 ml Tube Feeding 360 ml 270 ml Output Urine Total 645 ml 1000 ml Objective PHYSICAL EXAMINATION: GENERAL: The patient is well-developed, well-nourished male, in moderate respiratory distress. HEENT: Eyes, pupils are equal and responsive to light and accommodation. Extraocular movements are intact. NECK: Supple. No lymphadenopathy. CHEST: Mech vent; Lungs are clear to auscultation bilaterally without wheezes or rales. CARDIOVASCULAR: Regular rhythm and rate. S1-S2 are normal without murmurs, rubs, or gallops. ABDOMEN: Soft, nontender, and nondistended. Positive bowel sounds. No evidence of hepatosplenomegaly. Currently, no rebound or guarding noted. EXTREMITIES: Negative for clubbing, cyanosis, or edema. RECTAL/GENITAL: Not performed. NEUROLOGIC: Cranial nerves II through XII are grossly intact without focal deficits. Motor strength is 5/5 bilaterally. Deep tendon reflexes are 2+ plantar. Assessment/Plan Assessment/Plan ASSESSMENT: This is an 79-year-old male with. 1. [facility] 2. Right-sided pneumonia. 3. Hypertension. 4. Congestive heart failure. 5. Chronic obstructive pulmonary disease. 6. Anemia. 7. Cerebrovascular disease, status post cerebrovascular accident. 8. Peripheral vascular disease. 9. Gastroesophageal reflux disease. 10. Major depression. 11. Seizure disorder. 12. History of COVID-19 positive in February 2020. 13. Benign prostatic hypertrophy. TREATMENT: 1. Respiratory failure/right-sided pneumonia pulmonary consultation= Dr. Micha Schneider. ABX= vancomycin, flagyl and cefepime. Infectious Disease= Dr. Urrutia. Follow recommendations of Infectious Disease and Pulmonary. 2. Hypertension. The patient is currently hypotensive. 3. Congestive heart failure. 4. Chronic obstructive pulmonary disease. Continue DuoNeb as above. 5. Anemia. 6. Cerebrovascular disease. 7. Peripheral vascular disease. 8. Gastroesophageal reflux disease. Continue famotidine as above. 9. Major depression. Seizure disorder. 10. COVID-19 positive, history in February 2020. 11. Benign prostatic hypertrophy. Continue Flomax as above. Pablo Hickman MD Aug 10, 2020 18:56
--- NOTE | 2020-08-10 19:37 | NUR ---
NURSING NOTE: PICC LINE ASSESSED, DOES NOT FLUSH, VULCAN CREWMEMBER AWARE, ENDORSED TO SOFTLINES SUPERVISOR RN. TLC FEMORAL LINE STILL IN USE.
--- NOTE | 2020-08-10 19:38 | NUR ---
NURSE NOTES: Received pt in bed, sedated, SHANNON-2, on vent via trach not showing any signs of distress at present settings. Glucerna 1. 2 running at 30cc/hr via OGT. Fentanyl infusing at 100 mcg/hr right femoral TLC. D51/2Ns and Kphos infusing via the right femoral TLC. DL PICC on LIBBY intact. Butler catheter in place draining mera colored urine. VSS and pt is SR on the monitor.
[2020-08-10] MEDS: Dyna-Hex 2% Top Sol 2oz TOPIC SCH (20:05)
--- NOTE | 2020-08-10 22:00 | NUR ---
pt condition remains unchanged. VSS
[2020-08-10] MEDS: fentaNYL 2500mcg/NS 250ml 250 ML IV PRN (23:36)
[2020-08-11] VITALS (66 sets, daily range): BP systolic 80–175; BP diastolic 49–103
--- NOTE | 2020-08-11 | NUR ---
NURSE NOTES: Pt stable with stable VS. Pt repositioned for comfort. Accucheck is 138. Pt remains SR on the monitor.
[2020-08-11] MEDS: Solu-MEDROL 40mg Inj IVP SCH ×4 (02:35→18:14)
--- NOTE | 2020-08-11 04:00 | NUR ---
NURSE NOTES: Pt stable with stable VS. Pt repositoned for comfort. AM Care given. Pt remains SR on the monitor.
[2020-08-11 04:24] LABS: HEMATOCRIT 30.7 % (42.0-52.0); HEMOGLOBIN 9.3 G/DL (14.2-18.0); MEAN CORPUSCULAR VOLUME 90 FL (80-99); PLATELET COUNT 240 K/UL (150-450); RED BLOOD COUNT 3.42 M/UL (4.70-6.10); RED CELL DISTRIBUTION WIDTH 14.5 % (11.6-14.8); WHITE BLOOD COUNT 12.7 K/UL (4.8-10.8)
[2020-08-11] MEDS: Vancomycin 1.25gm/250ml Premix IVPB SCH ×3 (04:49→20:52)
[2020-08-11 04:50] LABS: ANION GAP 3 mmol/L (5-15); BLOOD UREA NITROGEN 17 mg/dL (7-18); CALCIUM 8.2 MG/DL (8.5-10.1); CARBON DIOXIDE 32 MMOL/L (21-32); CHLORIDE 108 MMOL/L (98-107); CREATININE 0.7 MG/DL (0.55-1.30); POTASSIUM 4.1 MMOL/L (3.5-5.1); SODIUM 143 MMOL/L (136-145)
[2020-08-11] MEDS: Gabapentin 300 MG/6 ML Soln NG SCH ×3 (05:18→20:51)
[2020-08-11] MEDS: D5 1/2NS 1,000 ML IV SCH ×3 (05:30→20:01)
--- NOTE | 2020-08-11 06:00 | NUR ---
NURSE NOTES: Pt stable. NO signs of any distress noted. Pt remains sedated SHANNON-2. VSS
--- NOTE | 2020-08-11 07:30 | NUR ---
NURSE HAND-OFF REPORT: Latest Vital Signs: Temperature 99.0 , Pulse 79 , B/P 115 /67 , Respiratory Rate 21 , O2 SAT 100 , Mechanical Ventilator, O2 Flow Rate . Vital Sign Comment: EKG Rhythm: Sinus Rhythm Rhythm change?: N MD Notified?: - MD Response: Latest Castro Fall Score: 50 Fall Risk: High Risk Safety Measures: Call light Within Reach, Bed Alarm Zone 2, Side Rails Side Rails x2, Bed position Low and Locked. Fall Precautions: Yellow Socks Yellow Gown Door Sign Patient Fall Education Report given to ION De Paz.
--- NOTE | 2020-08-11 07:31 | NUR ---
NURSE NOTES: Received pt from ION Burdick. Pt sleeping at this time. Pt intubated and sedated. RASS -2. Pt easily aroused to voice and light touch. Pupils PERRLA and brisk. Pt moves all ext by command. Pt nods and shakes head to answer simple questions. NO restraint. Pt calm and cooperative. Pt tolerating ventilator setting of tidal volume 500, FiO2 40%, PEEP 5, and RR 16. Lung sound coarse in upper and diminished in bases. Pt has OGT that is patent and verified. Pt running tube feeding and tolerating with no residual noted. Pt has order for weaning trial. Will wean sedation as tolerated. Pt has right upper arm PICC line that is sluggish to flush/draw. PICC placed yesterday. Will follow up with radiology to re-evaluate prior to use. Right fem TLC remains in place with dressing dry and intact. Will remove when PICC line re-evaluated and re-verified by radiology. Will continue to monitor. Addendum: 08/11/20 at 1034 by Zandra Ruelas RN Lung sounds clear in upper and diminished in bases.
--- NOTE | 2020-08-11 08:30 | NUR ---
NURSE NOTES: RT reported that she attempted to wean the pt. He failed weaning trial due to high RR and high HR.
--- NOTE | 2020-08-11 08:42 | NUR ---
RADIOLOGY DEPT., CHEST X-RAY DONE.-P.DYE
[2020-08-11] MEDS: Cefepime 2gm/D5W 110ml IV SCH ×4 (08:59→20:51)
[2020-08-11] MEDS: Enoxaparin 60mg Inj SUBQ SCH ×2 (09:00→20:51)
--- NOTE | 2020-08-11 09:34 | Nephrology Progress Note ---
Assessment/Plan Problem List: (1) Oliguria (2) Electrolyte imbalance (3) Pneumonia (4) Respiratory failure with hypoxia (5) Pneumonia due to COVID-19 virus (6) Seizure disorder (7) Anemia Assessment Sepsis, respiratory failure Pneumonia and possible aspiration. Questionable COVID-19 infection UTI Abnormal electrolytes Questionable CHF Anemia Plan August 11: Intubated on ventilator. O2 40%. Full code. Medication list reviewed. Labs reviewed. Stable from renal standpoint of view. Continue per consultants. August 10: Status quo. Intubated on ventilator. FiO2 remains 40%. Renal parameters stable. Continue per current management. Potassium and phosphorus supplement given August 09: Full code. Intubated on ventilator. FiO2 40%. Labs reviewed. Stable from renal standpoint of view. August 08: Labs reviewed. Renal parameters stable. Abnormal electrolytes addressed. Remains full code. FiO2 50%. Continue per consultants. Discussed with RN. August 07: Labs reviewed. K Phos IV given. Patient intubated. Full code. FiO2 60%. Medication list reviewed. Continue per consultants. Previously: Optimize pulmonary status Optimize cardiac status Monitor renal parameters, urine output, electrolytes Change IV to half-normal saline Anemia mansfield Insert NG tube and start feeding Per orders Subjective ROS Limited/Unobtainable: Yes Objective Objective Last 24 Hour Vital Signs Date Time Temp Pulse Resp B/P (MAP) Pulse Ox O2 Delivery O2 Flow Rate FiO2 08/11/20 09:00 77 8 99/58 (72) 100 08/11/20 08:45 79 5 100/60 (73) 100 08/11/20 08:30 78 15 109/64 (79) 100 08/11/20 08:15 86 33 131/86 (101) 100 08/11/20 08:00 98.8 78 17 114/69 (84) 08/11/20 07:45 75 20 40 08/11/20 07:30 19 140/81 Mechanical Ventilator 40 08/11/20 07:00 79 21 115/67 (83) 100 08/11/20 07:00 21 115/67 40 08/11/20 07:00 20 134/77 Mechanical Ventilator 40 08/11/20 06:30 79 21 08/11/20 06:00 80 20 153/88 (109) 100 08/11/20 06:00 20 153/88 Mechanical Ventilator 40 08/11/20 05:00 17 126/76 Mechanical Ventilator 40 08/11/20 05:00 78 17 126/76 (93) 100 08/11/20 04:00 99.0 81 18 126/72 (90) 100 08/11/20 04:00 18 126/72 Mechanical Ventilator 40 08/11/20 04:00 84 08/11/20 04:00 Mechanical Ventilator 08/11/20 04:00 40 08/11/20 03:46 78 17 40 08/11/20 03:00 78 17 129/69 (89) 100 08/11/20 03:00 17 129/69 Mechanical Ventilator 40 08/11/20 02:00 26 138/77 Mechanical Ventilator 40 08/11/20 02:00 85 26 138/77 (97) 100 08/11/20 01:00 30 112/74 Mechanical Ventilator 40 08/11/20 01:00 80 30 112/74 (87) 100 08/11/20 00:00 Mechanical Ventilator 08/11/20 00:00 98.2 83 24 111/69 (83) 100 08/11/20 00:00 40 08/11/20 00:00 24 111/69 Mechanical Ventilator 40 08/11/20 00:00 83 08/10/20 23:45 82 18 40 08/10/20 23:36 28 109/70 Mechanical Ventilator 40 08/10/20 23:00 92 34 191/85 (120) 100 08/10/20 23:00 24 111/69 Mechanical Ventilator 40 08/10/20 22:00 81 18 110/71 (84) 100 08/10/20 22:00 24 154/85 Mechanical Ventilator 40 08/10/20 21:00 85 23 106/65 (79) 100 08/10/20 21:00 18 110/71 Mechanical Ventilator 40 08/10/20 20:00 Mechanical Ventilator 08/10/20 20:00 88 08/10/20 20:00 23 106/65 Mechanical Ventilator 40 08/10/20 20:00 98.3 87 21 127/78 (94) 100 08/10/20 20:00 40 08/10/20 19:13 89 19 40 08/10/20 19:04 89 20 135/72 (93) 100 08/10/20 19:00 21 127/78 Mechanical Ventilator 40 08/10/20 19:00 94 43 163/82 (109) 100 2/22/21 18:45 94 20 155/87 (109) 100 08/10/20 18:30 85 29 176/90 (118) 100 08/10/20 18:15 76 16 105/59 (74) 100 08/10/20 18:00 77 16 85/52 (63) 100 08/10/20 17:45 80 15 108/62 (77) 100 08/10/20 17:30 79 13 75/51 (59) 100 08/10/20 17:28 79 7 74/49 (57) 100 08/10/20 17:15 79 15 78/49 (59) 100 08/10/20 17:12 80 13 82/59 (67) 100 08/10/20 17:00 81 16 71/48 (56) 100 08/10/20 16:45 16 96/54 35 08/10/20 16:15 85 21 109/65 (80) 100 08/10/20 16:00 84 16 113/67 (82) 100 08/10/20 16:00 40 08/10/20 16:00 71 08/10/20 16:00 Mechanical Ventilator 08/10/20 15:57 85 19 40 08/10/20 15:45 85 24 112/70 (84) 100 08/10/20 15:30 86 22 137/71 (93) 100 08/10/20 15:15 87 19 99/60 (73) 100 08/10/20 15:00 91 22 124/77 (93) 100 08/10/20 15:00 91 22 124/77 (93) 100 08/10/20 14:45 88 19 143/95 (111) 100 08/10/20 14:45 88 19 143/95 (111) 100 08/10/20 14:30 88 24 149/85 (106) 100 08/10/20 14:30 88 24 149/85 (106) 100 08/10/20 14:15 86 20 130/85 (100) 100 08/10/20 14:15 86 20 130/85 (100) 100 08/10/20 14:00 85 23 126/77 (93) 100 08/10/20 14:00 79 16 123/79 (94) 100 08/10/20 14:00 79 16 123/79 (94) 100 08/10/20 14:00 79 16 123/79 (94) 100 08/10/20 13:45 82 16 99/58 (72) 100 08/10/20 13:30 84 16 96/65 (75) 100 08/10/20 13:15 85 20 118/72 (87) 100 08/10/20 13:00 82 28 119/77 (91) 100 08/10/20 12:45 85 23 126/77 (93) 100 08/10/20 12:30 87 19 125/84 (98) 100 08/10/20 12:15 89 22 141/97 (112) 100 08/10/20 12:00 88 24 134/84 (101) 100 08/10/20 12:00 Mechanical Ventilator 08/10/20 12:00 40 08/10/20 12:00 87 08/10/20 11:45 85 23 123/82 (96) 100 08/10/20 11:38 86 18 40 08/10/20 11:30 86 20 131/78 (95) 100 08/10/20 11:15 89 23 140/96 (111) 100 08/10/20 11:00 84 23 123/83 (96) 100 08/10/20 10:00 83 26 123/73 (90) 100 08/10/20 09:45 82 23 121/75 (90) 100 Intake and Output 08/10/20 08/11/20 19:00 07:00 Intake Total 1767 ml 2192.000 ml Output Total 1450 ml 1310 ml Balance 317 ml 882.000 ml IV Total 1467 ml 1832.000 ml Tube Feeding 300 ml 360 ml Output Urine Total 1450 ml 1310 ml Current Medications Medications (Trade) Dose Ordered Sig/Armand Route PRN Reason Start Time Stop Time Status Last Admin Dose Admin Acetaminophen (Tylenol) 650 mg Q6H PRN NG Mild Pain (Pain Scale 1-3) 08/08/20 14:00 09/07/20 13:59 08/09/20 20:31 Acetaminophen (Tylenol) 650 mg Q6H PRN NG Temp >100.5 08/08/20 14:00 09/07/20 13:59 Albuterol/ Ipratropium (Combivent Respimat) 1 puff Q4H PRN INH Shortness of Breath 08/04/20 10:00 3/18/21 09:59 Albuterol/ Ipratropium (Combivent Respimat) 1 puff Q8HR INH 08/04/20 09:30 09/03/20 09:29 08/06/20 14:00 Cefepime HCl 2 gm/ Dextrose 110 ml @ 220 mls/hr EVERY 12 HOURS IV 08/05/20 21:00 08/12/20 20:59 08/11/20 08:59 Chlorhexidine Gluconate (Maddie-Hex 2%) 1 applic DAILY@2000 TOPIC 08/07/20 20:00 11/05/20 19:59 08/10/20 20:05 Dextrose/Sodium Chloride 1,000 ml @ 75 mls/hr [id number] IV 08/06/20 11:00 09/05/20 10:59 08/11/20 05:30 Enoxaparin Sodium (Lovenox) 60 mg EVERY 12 HOURS SUBQ 08/05/20 21:00 11/03/20 20:59 08/11/20 09:00 Famotidine (Pepcid I.v.) 20 mg Q12HR IVP 08/06/20 11:00 09/05/20 10:59 08/11/20 09:00 Fentanyl Citrate 250 ml @ 0 mls/hr Q24H PRN IV . 08/10/20 23:00 08/12/20 22:59 08/10/20 23:36 Gabapentin (Neurontin) 300 mg EVERY 8 HOURS NG 08/08/20 22:00 09/04/20 08:59 08/11/20 05:18 Heparin Sodium/ Sodium Chloride (Heparin 1000 units/500ml Premix) 1,000 unit ONCE PRN IV radiology procedure 08/10/20 09:15 08/12/20 09:14 Lidocaine HCl (Xylocaine 1% 30ml) 30 ml ONCE PRN INJ radiology procedure 08/10/20 09:15 08/12/20 09:14 Lorazepam (Ativan 2mg/ml 1ml) 0.5 mg Q6H PRN IV For Anxiety 08/04/20 21:30 08/11/20 21:29 Methylprednisolone Sodium Succinate (Solu-MEDROL) 40 mg EVERY 6 HOURS IVP 08/05/20 12:00 11/03/20 11:59 08/11/20 06:16 Metronidazole 100 ml @ 100 mls/hr Q8HR IVPB 08/09/20 22:00 08/16/20 21:59 08/11/20 05:18 Midazolam HCl 200 ml @ 0 mls/hr Q24H PRN IV To Patient Comfort 08/05/20 15:30 08/12/20 15:29 08/08/20 18:59 Vancomycin HCl 250 ml @ 166.667 mls/hr Q8HR@0400,1200,2000 IVPB 08/08/20 20:00 08/13/20 19:59 08/11/20 04:49 Vancomycin HCl ([facility] pharmacy to dose) 1 ea DAILY PRN MISC Per rx protocol 08/04/20 09:15 09/03/20 09:14 Laboratory Tests 08/11/20 03:00: White Blood Count 12.7H, Red Blood Count 3.42L, Hemoglobin 9.3L, Hematocrit 30.7L, Mean Corpuscular Volume 90, Mean Corpuscular Hemoglobin 27.1, Mean Corpuscular Hemoglobin Concent 30.2L, Red Cell Distribution Width 14.5, Platelet Count 240, Mean Platelet Volume 6.9, Neutrophils (%) (Auto) , Lymphocytes (%) (Auto) , Monocytes (%) (Auto) , Eosinophils (%) (Auto) , Basophils (%) (Auto) , Differential Total Cells Counted 100, Neutrophils % (Manual) 86H, Lymphocytes % (Manual) 7L, Monocytes % (Manual) 6, Eosinophils % (Manual) 0, Basophils % (Manual) 0, Band Neutrophils 1, Platelet Estimate Adequate, Platelet Morphology Normal, Hypochromasia 1+, Anisocytosis 1+, Schistocytes Occasional, Sodium Level 143, Potassium Level 4.1, Chloride Level 108H, Carbon Dioxide Level 32, Anion Gap 3L, Blood Urea Nitrogen 17, Creatinine 0.7, Estimat Glomerular Filtration Rate > 60, Glucose Level 139H, Calcium Level 8.2L, Phosphorus Level 2.7, Vancomycin Level Trough 19.9H Height (Feet): 6 Height (Inches): 1.00 Weight (Pounds): 190 General Appearance: no apparent distress EENT: other - Intubated on mechanical ventilation Cardiovascular: normal rate Respiratory/Chest: decreased breath sounds Abdomen: distended Aashish Burgess MD Aug 11, 2020 09:34
--- NOTE | 2020-08-11 10:31 | NUR ---
NURSE NOTES: Bronchoscopy performed by Dr Schneider. Pt tolerated with mild discomfort. NO obstruction seen. Received order to wean pt from ventilator as tolerated. Sedation decreased at this time.
--- NOTE | 2020-08-11 11:45 | NUR ---
NURSE NOTES: Pt failed second weaning trial. Pt placed back on original ventilator setting. Pt tolerating that setting. RR and HR elevated at this time. Sedation increased for comfort.
--- NOTE | 2020-08-11 12:00 | NUR ---
NURSE NOTES: VS stable. No s/s of distress. Will continue to monitor.
--- NOTE | 2020-08-11 12:39 | Cardiac Electrophysiology PN ---
Assessment/Plan Assessment/Plan 1. Respiratory failure. On the Vent and IV antibiotic. On 40% Fio2 Echocardiogram showed EF 50% 2. Questionable congestive heart failure. EF normal and BNP is only 39. 3. History of COVID pneumonia, status post vaccination for COVID. Currently on IV antibiotic and prednisone. Now off isolation 4. Questionable history of atrial fibrillation versus DVT. The patient is on Eliquis 2.5 mg b.i.d. Currently in SR 5. Full Code Subjective Subjective In ICU on 40% Fio2 and PEEP 5. OGT in place,. In SR. Off restraints on fentanyl drip Off Levo Objective Last 24 Hour Vital Signs Date Time Temp Pulse Resp B/P (MAP) Pulse Ox O2 Delivery O2 Flow Rate FiO2 08/11/20 12:00 Mechanical Ventilator 08/11/20 12:00 40 08/11/20 12:00 17 119/73 Mechanical Ventilator 40 08/11/20 11:45 23 119/73 Mechanical Ventilator 40 08/11/20 11:15 87 20 130/81 (97) 100 08/11/20 11:00 31 111/71 Mechanical Ventilator 40 08/11/20 11:00 86 23 149/81 (103) 100 08/11/20 10:45 77 15 115/74 (88) 100 08/11/20 10:30 28 111/70 Mechanical Ventilator 40 08/11/20 10:30 88 26 131/76 (94) 100 08/11/20 10:15 77 17 111/68 (82) 100 08/11/20 10:00 31 111/71 Mechanical Ventilator 40 08/11/20 10:00 78 16 104/69 (81) 100 08/11/20 09:45 83 19 149/83 (105) 100 08/11/20 09:30 74 16 110/66 (81) 100 08/11/20 09:15 79 16 97/66 (76) 100 08/11/20 09:00 77 8 99/58 (72) 100 08/11/20 09:00 35 106/72 Mechanical Ventilator 40 08/11/20 08:45 79 5 100/60 (73) 100 08/11/20 08:30 78 15 109/64 (79) 100 08/11/20 08:15 86 33 131/86 (101) 100 08/11/20 08:00 Mechanical Ventilator 2/23/21 08:00 23 105/47 Mechanical Ventilator 40 08/11/20 08:00 40 08/11/20 08:00 98.8 78 17 114/69 (84) 08/11/20 08:00 82 08/11/20 07:45 75 20 40 08/11/20 07:30 19 140/81 Mechanical Ventilator 40 08/11/20 07:00 79 21 115/67 (83) 100 08/11/20 07:00 21 115/67 40 08/11/20 07:00 20 134/77 Mechanical Ventilator 40 08/11/20 06:30 79 21 08/11/20 06:00 80 20 153/88 (109) 100 08/11/20 06:00 20 153/88 Mechanical Ventilator 40 08/11/20 05:00 17 126/76 Mechanical Ventilator 40 08/11/20 05:00 78 17 126/76 (93) 100 08/11/20 04:00 99.0 81 18 126/72 (90) 100 08/11/20 04:00 18 126/72 Mechanical Ventilator 40 08/11/20 04:00 84 08/11/20 04:00 Mechanical Ventilator 08/11/20 04:00 40 08/11/20 03:46 78 17 40 08/11/20 03:00 78 17 129/69 (89) 100 08/11/20 03:00 17 129/69 Mechanical Ventilator 40 08/11/20 02:00 26 138/77 Mechanical Ventilator 40 08/11/20 02:00 85 26 138/77 (97) 100 08/11/20 01:00 30 112/74 Mechanical Ventilator 40 08/11/20 01:00 80 30 112/74 (87) 100 08/11/20 00:00 Mechanical Ventilator 08/11/20 00:00 98.2 83 24 111/69 (83) 100 08/11/20 00:00 40 08/11/20 00:00 24 111/69 Mechanical Ventilator 40 08/11/20 00:00 83 08/10/20 23:45 82 18 40 08/10/20 23:36 28 109/70 Mechanical Ventilator 40 08/10/20 23:00 92 34 191/85 (120) 100 08/10/20 23:00 24 111/69 Mechanical Ventilator 40 08/10/20 22:00 81 18 110/71 (84) 100 08/10/20 22:00 24 154/85 Mechanical Ventilator 40 08/10/20 21:00 85 23 106/65 (79) 100 08/10/20 21:00 18 110/71 Mechanical Ventilator 40 08/10/20 20:00 Mechanical Ventilator 08/10/20 20:00 88 08/10/20 20:00 23 106/65 Mechanical Ventilator 40 08/10/20 20:00 98.3 87 21 127/78 (94) 100 08/10/20 20:00 40 08/10/20 19:13 89 19 40 08/10/20 19:04 89 20 135/72 (93) 100 08/10/20 19:00 21 127/78 Mechanical Ventilator 40 08/10/20 19:00 94 43 163/82 (109) 100 08/10/20 18:45 94 20 155/87 (109) 100 08/10/20 18:30 85 29 176/90 (118) 100 08/10/20 18:15 76 16 105/59 (74) 100 08/10/20 18:00 77 16 85/52 (63) 100 08/10/20 17:45 80 15 108/62 (77) 100 08/10/20 17:30 79 13 75/51 (59) 100 08/10/20 17:28 79 7 74/49 (57) 100 08/10/20 17:15 79 15 78/49 (59) 100 08/10/20 17:12 80 13 82/59 (67) 100 08/10/20 17:00 81 16 71/48 (56) 100 08/10/20 16:45 16 96/54 35 08/10/20 16:15 85 21 109/65 (80) 100 08/10/20 16:00 84 16 113/67 (82) 100 08/10/20 16:00 40 08/10/20 16:00 71 08/10/20 16:00 Mechanical Ventilator 08/10/20 15:57 85 19 40 08/10/20 15:45 85 24 112/70 (84) 100 08/10/20 15:30 86 22 137/71 (93) 100 08/10/20 15:15 87 19 99/60 (73) 100 08/10/20 15:00 91 22 124/77 (93) 100 08/10/20 15:00 91 22 124/77 (93) 100 08/10/20 14:45 88 19 143/95 (111) 100 08/10/20 14:45 88 19 143/95 (111) 100 08/10/20 14:30 88 24 149/85 (106) 100 08/10/20 14:30 88 24 149/85 (106) 100 08/10/20 14:15 86 20 130/85 (100) 100 08/10/20 14:15 86 20 130/85 (100) 100 08/10/20 14:00 85 23 126/77 (93) 100 08/10/20 14:00 79 16 123/79 (94) 100 08/10/20 14:00 79 16 123/79 (94) 100 08/10/20 14:00 79 16 123/79 (94) 100 08/10/20 13:45 82 16 99/58 (72) 100 08/10/20 13:30 84 16 96/65 (75) 100 08/10/20 13:15 85 20 118/72 (87) 100 08/10/20 13:00 82 28 119/77 (91) 100 08/10/20 12:45 85 23 126/77 (93) 100 Intake and Output 08/10/20 08/11/20 19:00 07:00 Intake Total 1767 ml 2192.000 ml Output Total 1450 ml 1310 ml Balance 317 ml 882.000 ml IV Total 1467 ml 1832.000 ml Tube Feeding 300 ml 360 ml Output Urine Total 1450 ml 1310 ml Laboratory Tests Test 08/11/20 03:00 White Blood Count 12.7 K/UL (4.8-10.8) H Red Blood Count 3.42 M/UL (4.70-6.10) L Hemoglobin 9.3 G/DL (14.2-18.0) L Hematocrit 30.7 % (42.0-52.0) L Mean Corpuscular Volume 90 FL (80-99) Mean Corpuscular Hemoglobin 27.1 PG (27.0-31.0) Mean Corpuscular Hemoglobin Concent 30.2 G/DL (32.0-36.0) L Red Cell Distribution Width 14.5 % (11.6-14.8) Platelet Count 240 K/UL (150-450) Mean Platelet Volume 6.9 FL (6.5-10.1) Neutrophils (%) (Auto) % (45.0-75.0) Lymphocytes (%) (Auto) % (20.0-45.0) Monocytes (%) (Auto) % (1.0-10.0) Eosinophils (%) (Auto) % (0.0-3.0) Basophils (%) (Auto) % (0.0-2.0) Differential Total Cells Counted 100 Neutrophils % (Manual) 86 % (45-75) H Lymphocytes % (Manual) 7 % (20-45) L Monocytes % (Manual) 6 % (1-10) Eosinophils % (Manual) 0 % (0-3) Basophils % (Manual) 0 % (0-2) Band Neutrophils 1 % (0-8) Platelet Estimate Adequate Platelet Morphology Normal Hypochromasia 1+ Anisocytosis 1+ Schistocytes Occasional Sodium Level 143 MMOL/L (136-145) Potassium Level 4.1 MMOL/L (3.5-5.1) Chloride Level 108 MMOL/L (98-107) H Carbon Dioxide Level 32 MMOL/L (21-32) Anion Gap 3 mmol/L (5-15) L Blood Urea Nitrogen 17 mg/dL (7-18) Creatinine 0.7 MG/DL (0.55-1.30) Estimat Glomerular Filtration Rate > 60 mL/min (>60) Glucose Level 139 MG/DL (74-106) H Calcium Level 8.2 MG/DL (8.5-10.1) L Phosphorus Level 2.7 MG/DL (2.5-4.9) Vancomycin Level Trough 19.9 ug/mL (5.0-12.0) H Objective HEAD AND NECK: Orally intubated LUNGS: Coarse rhonchi. CARDIOVASCULAR: Regular S1 and S2 with no gallop. ABDOMEN: Soft. EXTREMITIES: 1 plus pitting edema. Devyn Magdaleno MD Aug 11, 2020 12:39
--- NOTE | 2020-08-11 13:25 | Pulmonology Progress Note ---
Subjective ROS Limited/Unobtainable: Yes Interval Events: Intubated 08/05/20 Constitutional: Reports: fatigue, other - on vent, no pressors ; Denies: fever HEENT: Repors: no symptoms Respiratory: Reports: shortness of breath Cardiovascular: Reports: no symptoms Gastrointestinal/Abdominal: Denies: nausea, vomiting, diarrhea Genitourinary: Reports: no symptoms Neurologic: Reports: no symptoms Psychiatric: Reports: other - NA Skin: Denies: rash Musculoskeletal: Reports: other - NA Allergies: Coded Allergies: PENICILLINS (Verified Allergy, Unknown, 03/10/20) PHENYTOIN (Verified Allergy, Unknown, 03/10/20) Objective Last 24 Hour Vital Signs Date Time Temp Pulse Resp B/P (MAP) Pulse Ox O2 Delivery O2 Flow Rate FiO2 08/11/20 12:30 78 20 128/73 (91) 100 08/11/20 12:15 81 20 121/78 (92) 100 08/11/20 12:00 Mechanical Ventilator 08/11/20 12:00 40 08/11/20 12:00 17 119/73 Mechanical Ventilator 40 08/11/20 12:00 98.6 83 17 119/73 (88) 100 08/11/20 11:45 23 119/73 Mechanical Ventilator 40 08/11/20 11:45 93 41 160/91 (114) 99 08/11/20 11:30 93 21 154/88 (110) 100 08/11/20 11:15 87 20 130/81 (97) 100 08/11/20 11:00 31 111/71 Mechanical Ventilator 40 08/11/20 11:00 86 23 149/81 (103) 100 08/11/20 10:45 77 15 115/74 (88) 100 08/11/20 10:30 28 111/70 Mechanical Ventilator 40 08/11/20 10:30 88 26 131/76 (94) 100 08/11/20 10:15 77 17 111/68 (82) 100 08/11/20 10:00 31 111/71 Mechanical Ventilator 40 08/11/20 10:00 78 16 104/69 (81) 100 08/11/20 09:45 83 19 149/83 (105) 100 08/11/20 09:30 74 16 110/66 (81) 100 08/11/20 09:15 79 16 97/66 (76) 100 08/11/20 09:00 77 8 99/58 (72) 100 08/11/20 09:00 35 106/72 Mechanical Ventilator 40 08/11/20 08:45 79 5 100/60 (73) 100 08/11/20 08:30 78 15 109/64 (79) 100 08/11/20 08:15 86 33 131/86 (101) 100 08/11/20 08:00 Mechanical Ventilator 08/11/20 08:00 23 105/47 Mechanical Ventilator 40 08/11/20 08:00 40 08/11/20 08:00 98.8 78 17 114/69 (84) 08/11/20 08:00 82 08/11/20 07:45 75 20 40 08/11/20 07:30 19 140/81 Mechanical Ventilator 40 08/11/20 07:00 79 21 115/67 (83) 100 08/11/20 07:00 21 115/67 40 08/11/20 07:00 20 134/77 Mechanical Ventilator 40 08/11/20 06:30 79 21 08/11/20 06:00 80 20 153/88 (109) 100 08/11/20 06:00 20 153/88 Mechanical Ventilator 40 08/11/20 05:00 17 126/76 Mechanical Ventilator 40 08/11/20 05:00 78 17 126/76 (93) 100 08/11/20 04:00 99.0 81 18 126/72 (90) 100 08/11/20 04:00 18 126/72 Mechanical Ventilator 40 08/11/20 04:00 84 08/11/20 04:00 Mechanical Ventilator 08/11/20 04:00 40 08/11/20 03:46 78 17 40 08/11/20 03:00 78 17 129/69 (89) 100 08/11/20 03:00 17 129/69 Mechanical Ventilator 40 08/11/20 02:00 26 138/77 Mechanical Ventilator 40 08/11/20 02:00 85 26 138/77 (97) 100 08/11/20 01:00 30 112/74 Mechanical Ventilator 40 08/11/20 01:00 80 30 112/74 (87) 100 08/11/20 00:00 Mechanical Ventilator 08/11/20 00:00 98.2 83 24 111/69 (83) 100 08/11/20 00:00 40 08/11/20 00:00 24 111/69 Mechanical Ventilator 40 08/11/20 00:00 83 08/10/20 23:45 82 18 40 08/10/20 23:36 28 109/70 Mechanical Ventilator 40 08/10/20 23:00 92 34 191/85 (120) 100 08/10/20 23:00 24 111/69 Mechanical Ventilator 40 08/10/20 22:00 81 18 110/71 (84) 100 08/10/20 22:00 24 154/85 Mechanical Ventilator 40 08/10/20 21:00 85 23 106/65 (79) 100 08/10/20 21:00 18 110/71 Mechanical Ventilator 40 08/10/20 20:00 Mechanical Ventilator 08/10/20 20:00 88 08/10/20 20:00 23 106/65 Mechanical Ventilator 40 08/10/20 20:00 98.3 87 21 127/78 (94) 100 08/10/20 20:00 40 08/10/20 19:13 89 19 40 08/10/20 19:04 89 20 135/72 (93) 100 08/10/20 19:00 21 127/78 Mechanical Ventilator 40 08/10/20 19:00 94 43 163/82 (109) 100 08/10/20 18:45 94 20 155/87 (109) 100 08/10/20 18:30 85 29 176/90 (118) 100 08/10/20 18:15 76 16 105/59 (74) 100 08/10/20 18:00 77 16 85/52 (63) 100 08/10/20 17:45 80 15 108/62 (77) 100 08/10/20 17:30 79 13 75/51 (59) 100 08/10/20 17:28 79 7 74/49 (57) 100 08/10/20 17:15 79 15 78/49 (59) 100 08/10/20 17:12 80 13 82/59 (67) 100 08/10/20 17:00 81 16 71/48 (56) 100 08/10/20 16:45 16 96/54 35 08/10/20 16:15 85 21 109/65 (80) 100 08/10/20 16:00 84 16 113/67 (82) 100 08/10/20 16:00 40 08/10/20 16:00 71 08/10/20 16:00 Mechanical Ventilator 08/10/20 15:57 85 19 40 08/10/20 15:45 85 24 112/70 (84) 100 08/10/20 15:30 86 22 137/71 (93) 100 08/10/20 15:15 87 19 99/60 (73) 100 08/10/20 15:00 91 22 124/77 (93) 100 08/10/20 15:00 91 22 124/77 (93) 100 08/10/20 14:45 88 19 143/95 (111) 100 08/10/20 14:45 88 19 143/95 (111) 100 08/10/20 14:30 88 24 149/85 (106) 100 08/10/20 14:30 88 24 149/85 (106) 100 08/10/20 14:15 86 20 130/85 (100) 100 08/10/20 14:15 86 20 130/85 (100) 100 08/10/20 14:00 85 23 126/77 (93) 100 08/10/20 14:00 79 16 123/79 (94) 100 08/10/20 14:00 79 16 123/79 (94) 100 08/10/20 14:00 79 16 123/79 (94) 100 08/10/20 13:45 82 16 99/58 (72) 100 08/10/20 13:30 84 16 96/65 (75) 100 Intake and Output 08/10/20 08/11/20 19:00 07:00 Intake Total 1767 ml 2192.000 ml Output Total 1450 ml 1310 ml Balance 317 ml 882.000 ml IV Total 1467 ml 1832.000 ml Tube Feeding 300 ml 360 ml Output Urine Total 1450 ml 1310 ml General Appearance: no acute distress HEENT: normocephalic Respiratory: chest wall non-tender, lungs clear Cardiovascular: normal peripheral pulses, normal rate Abdomen: normal bowel sounds Extremities: no cyanosis Laboratory Tests 08/11/20 03:00: White Blood Count 12.7H, Red Blood Count 3.42L, Hemoglobin 9.3L, Hematocrit 30.7L, Mean Corpuscular Volume 90, Mean Corpuscular Hemoglobin 27.1, Mean Corpuscular Hemoglobin Concent 30.2L, Red Cell Distribution Width 14.5, Platelet Count 240, Mean Platelet Volume 6.9, Neutrophils (%) (Auto) , Lymphocytes (%) (Auto) , Monocytes (%) (Auto) , Eosinophils (%) (Auto) , Basophils (%) (Auto) , Differential Total Cells Counted 100, Neutrophils % (Manual) 86H, Lymphocytes % (Manual) 7L, Monocytes % (Manual) 6, Eosinophils % (Manual) 0, Basophils % (Manual) 0, Band Neutrophils 1, Platelet Estimate Adequate, Platelet Morphology Normal, Hypochromasia 1+, Anisocytosis 1+, Schistocytes Occasional, Sodium Level 143, Potassium Level 4.1, Chloride Level 108H, Carbon Dioxide Level 32, Anion Gap 3L, Blood Urea Nitrogen 17, Creatinine 0.7, Estimat Glomerular Filtration Rate > 60, Glucose Level 139H, Calcium Level 8.2L, Phosphorus Level 2.7, Vancomycin Level Trough 19.9H Current Medications Medications (Trade) Dose Ordered Sig/Armand Route PRN Reason Start Time Stop Time Status Last Admin Dose Admin Acetaminophen (Tylenol) 650 mg Q6H PRN NG Mild Pain (Pain Scale 1-3) 08/08/20 14:00 09/07/20 13:59 08/09/20 20:31 Acetaminophen (Tylenol) 650 mg Q6H PRN NG Temp >100.5 08/08/20 14:00 09/07/20 13:59 Albuterol/ Ipratropium (Combivent Respimat) 1 puff Q4H PRN INH Shortness of Breath 08/04/20 10:00 09/03/20 09:59 Albuterol/ Ipratropium (Combivent Respimat) 1 puff Q8HR INH 08/04/20 09:30 09/03/20 09:29 08/06/20 14:00 Cefepime HCl 2 gm/ Dextrose 110 ml @ 220 mls/hr EVERY 12 HOURS IV 08/05/20 21:00 08/18/20 23:59 08/11/20 08:59 Chlorhexidine Gluconate (Maddie-Hex 2%) 1 applic DAILY@2000 TOPIC 08/07/20 20:00 11/05/20 19:59 08/10/20 20:05 Dextrose/Sodium Chloride 1,000 ml @ 75 mls/hr [id number] IV 08/06/20 11:00 09/05/20 10:59 08/11/20 10:19 Enoxaparin Sodium (Lovenox) 60 mg EVERY 12 HOURS SUBQ 08/05/20 21:00 11/03/20 20:59 08/11/20 09:00 Famotidine (Pepcid I.v.) 20 mg Q12HR IVP 08/06/20 11:00 09/05/20 10:59 08/11/20 09:00 Fentanyl Citrate 250 ml @ 0 mls/hr Q24H PRN IV . 08/10/20 23:00 08/12/20 22:59 08/10/20 23:36 Gabapentin (Neurontin) 300 mg EVERY 8 HOURS NG 08/08/20 22:00 09/04/20 08:59 08/11/20 05:18 Heparin Sodium/ Sodium Chloride (Heparin 1000 units/500ml Premix) 1,000 unit ONCE PRN IV radiology procedure 08/10/20 09:15 08/12/20 09:14 Lidocaine HCl (Xylocaine 1% 30ml) 30 ml ONCE PRN INJ radiology procedure 08/10/20 09:15 08/12/20 09:14 Lorazepam (Ativan 2mg/ml 1ml) 0.5 mg Q6H PRN IV For Anxiety 08/04/20 21:30 08/11/20 21:29 Methylprednisolone Sodium Succinate (Solu-MEDROL) 40 mg EVERY 6 HOURS IVP 08/05/20 12:00 11/03/20 11:59 08/11/20 12:19 Metronidazole 100 ml @ 100 mls/hr Q8HR IVPB 08/09/20 22:00 08/16/20 21:59 08/11/20 05:18 Midazolam HCl 200 ml @ 0 mls/hr Q24H PRN IV To Patient Comfort 08/05/20 15:30 08/12/20 15:29 08/08/20 18:59 Vancomycin HCl 250 ml @ 166.667 mls/hr Q8HR@0400,1200,2000 IVPB 08/08/20 20:00 08/16/20 23:59 08/11/20 12:20 Vancomycin HCl ([facility] pharmacy to dose) 1 ea DAILY PRN MISC Per rx protocol 08/04/20 09:15 09/03/20 09:14 Assessment/Plan Assessment/Plan 1. UTI -On empiric antibiotics -Follow-up UCx negative (08/03) 2. Pneumonia -On broad-spectrum antibiotics - CXR concerning for volume loss; reviewed chest CT - CT chest shows dense RUL and RML consolidation - High suspicion for RBI narrowing ? need to rule out endobronchial obstruction; will plan bronchoscopy today 3. COPD exacerbation -Now intubated 4. Respiratory distress - Continue steroids 5. History of seizures -Risk of aspiration -Monitor for seizure activity 6. Elevated CRP -D-dimer wnl -His outpatient medications include Eliquis (hx of A fib?) - Continue Eliquis 7. Monitor carefully in ICU S/p intubation On Levophed; low dose;now dc Continue AC mode; will continue weaning FiO2 90->80 ->40% PEEP 5 Micha Schneider MD Aug 11, 2020 13:25
--- NOTE | 2020-08-11 14:58 | Diagnostic Imaging Report ---
Procedure: XRAY Chest 1v Reason for study: Shortness of breath. Comparison films: 08/09/2020. FINDINGS: Endotracheal tube and NG tube remain in place. There is a portion of a right PICC line noted with the tip in the SVC. However the catheter appears to terminate approximately the right axilla and more proximal segment of the catheter is not visualized. In speaking with the nurse, there was some difficulty with the PICC line which is now not functional. Findings suspicious for possible broken catheter with only part of the catheter visualized. Alveolar infiltrate noted right lung base with bilateral small effusions. Cardiac and mediastinal silhouette are within normal limits. Tortuous aorta remains. IMPRESSION: No change in bibasilar infiltrate and small bilateral effusions. Endotracheal tube and NG tube remain in place. Right PICC line visualized but only a portion of the catheter is visualized with the tip in the SVC. The more proximal segment is not seen beyond the axillary region. In speaking with the patient's nurse, there is apparent difficulty with the PICC catheter which is nonfunctional. Suspect possible broken/discontiguous catheter and a central catheter fragment.
--- NOTE | 2020-08-11 15:00 | NUR ---
NURSE NOTES: Radiologist called and reported a possible fragmented PICC line. Notified Duane in radiology. He will come evaluate the line. Ordered repeat chest xray stat today now.
--- NOTE | 2020-08-11 16:00 | NUR ---
NURSE NOTES: Duane from radiology adjusted PICC line placement slightly. PICC line now flushes and draws blood more easily.
--- NOTE | 2020-08-11 16:46 | NUR ---
NURSE NOTES: Noted result of new repeat chest xray. PICC line in good position.
--- NOTE | 2020-08-11 16:50 | Diagnostic Imaging Report ---
Procedure: XRAY Chest 1v Reason for study: PICC line placement Comparison films: 08/11/2020. FINDINGS: Endotracheal tube and NG tube remain in place. The right PICC line is now better visualized with the tip in the SVC. The proximal segment is now included in the field and better visualized. Vascularity is normal. Bibasilar densities and small effusions are unchanged. Cardiac and mediastinal silhouette are within normal limits. CP angles are sharp. The bony thorax appear unremarkable. IMPRESSION: No change bibasilar densities and effusions. Right PICC line now better seen from the mid humeral level to the tip which is in the SVC.
--- NOTE | 2020-08-11 16:51 | Infectious Diseases Prog Note ---
Assessment/Plan Assessment/Plan ASSESSMENT AND PLAN: 1. 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 contaminant vs bacteremia, uti, sepsis, shock, respiratory failure, vent sirs, leukocytosis, fevers mrsa colonization + femoral line -now patient with picc line covid-19 testing negative - vancomycin, cefepime and flagyl - day # 7 abx - f/u on labs and chest x-ray - icu care, vent care, bp support - off pressors - d/w RN at length (primary and charge nurse) - of pressors - leukocytosis likely secondary to steroids - d/w pharmacy - clinically improved - cannot wean yet per RN 2. await COVID testing. Patient is in COVID isolation with history of COVID in the past. 3. Patient is on steroids. 4. If patient has COVID infection or new COVID infection, patient is a poor candidate for remdesivir because of respiratory failure, mechanical ventilation. Probably not very beneficial action in a patient like this. 5. Vent care per Pulmonary Medicine. 6. Blood pressure support. 7. Hypertension. 8. CHF. 9. COPD. 10. Prostate cancer. 11. Anemia. 12. CVA. 13. Aspiration risk. 14. Peripheral vascular disease. 15. GERD. 16. Seizures. 17. Depression. 18. History of COVID infection in February 2020. 19. Continue treatment per primary consultants. 20. Orders were noted and entered. 21. Skin care protocol. 22. Allergies to penicillin and phenytoin. 23. Social history is negative. 24. Family history is noncontributory. 25. MAR is noted. 26. Case was discussed with RN. Subjective Constitutional: Reports: fatigue, other - on vent but no pressors ; Denies: fever HEENT: Reports: congestion Respiratory: Reports: shortness of breath Cardiovascular: Denies: chest pain Gastrointestinal/Abdominal: Denies: nausea, vomiting, diarrhea Genitourinary: Reports: other - no bee Neurologic: Reports: weakness, other - on vent, opens eyes Psychiatric: Reports: other - NA Skin: Denies: rash Hematologic: Denies: bleeding Musculoskeletal: Reports: other - NA Allergies: Coded Allergies: PENICILLINS (Verified Allergy, Unknown, 03/10/20) PHENYTOIN (Verified Allergy, Unknown, 03/10/20) Objective Last 24 Hour Vital Signs Date Time Temp Pulse Resp B/P (MAP) Pulse Ox O2 Delivery O2 Flow Rate FiO2 08/11/20 12:30 78 20 128/73 (91) 100 08/11/20 12:15 81 20 121/78 (92) 100 08/11/20 12:00 Mechanical Ventilator 08/11/20 12:00 40 08/11/20 12:00 17 119/73 Mechanical Ventilator 40 08/11/20 12:00 98.6 83 17 119/73 (88) 100 08/11/20 11:45 23 119/73 Mechanical Ventilator 40 08/11/20 11:45 93 41 160/91 (114) 99 08/11/20 11:30 93 21 154/88 (110) 100 08/11/20 11:15 87 20 130/81 (97) 100 08/11/20 11:00 31 111/71 Mechanical Ventilator 40 08/11/20 11:00 86 23 149/81 (103) 100 08/11/20 10:45 77 15 115/74 (88) 100 08/11/20 10:30 28 111/70 Mechanical Ventilator 40 08/11/20 10:30 88 26 131/76 (94) 100 08/11/20 10:15 77 17 111/68 (82) 100 08/11/20 10:00 31 111/71 Mechanical Ventilator 40 08/11/20 10:00 78 16 104/69 (81) 100 08/11/20 09:45 83 19 149/83 (105) 100 08/11/20 09:30 74 16 110/66 (81) 100 08/11/20 09:15 79 16 97/66 (76) 100 08/11/20 09:00 77 8 99/58 (72) 100 08/11/20 09:00 35 106/72 Mechanical Ventilator 40 08/11/20 08:45 79 5 100/60 (73) 100 08/11/20 08:30 78 15 109/64 (79) 100 08/11/20 08:15 86 33 131/86 (101) 100 08/11/20 08:00 Mechanical Ventilator 08/11/20 08:00 23 105/47 Mechanical Ventilator 40 08/11/20 08:00 40 08/11/20 08:00 98.8 78 17 114/69 (84) 08/11/20 08:00 82 08/11/20 07:45 75 20 40 08/11/20 07:30 19 140/81 Mechanical Ventilator 40 08/11/20 07:00 79 21 115/67 (83) 100 08/11/20 07:00 21 115/67 40 08/11/20 07:00 20 134/77 Mechanical Ventilator 40 08/11/20 06:30 79 21 08/11/20 06:00 80 20 153/88 (109) 100 08/11/20 06:00 20 153/88 Mechanical Ventilator 40 08/11/20 05:00 17 126/76 Mechanical Ventilator 40 08/11/20 05:00 78 17 126/76 (93) 100 08/11/20 04:00 99.0 81 18 126/72 (90) 100 08/11/20 04:00 18 126/72 Mechanical Ventilator 40 08/11/20 04:00 84 08/11/20 04:00 Mechanical Ventilator 08/11/20 04:00 40 08/11/20 03:46 78 17 40 08/11/20 03:00 78 17 129/69 (89) 100 08/11/20 03:00 17 129/69 Mechanical Ventilator 40 08/11/20 02:00 26 138/77 Mechanical Ventilator 40 08/11/20 02:00 85 26 138/77 (97) 100 08/11/20 01:00 30 112/74 Mechanical Ventilator 40 08/11/20 01:00 80 30 112/74 (87) 100 08/11/20 00:00 Mechanical Ventilator 08/11/20 00:00 98.2 83 24 111/69 (83) 100 08/11/20 00:00 40 08/11/20 00:00 24 111/69 Mechanical Ventilator 40 08/11/20 00:00 83 08/10/20 23:45 82 18 40 08/10/20 23:36 28 109/70 Mechanical Ventilator 40 08/10/20 23:00 92 34 191/85 (120) 100 08/10/20 23:00 24 111/69 Mechanical Ventilator 40 08/10/20 22:00 81 18 110/71 (84) 100 08/10/20 22:00 24 154/85 Mechanical Ventilator 40 08/10/20 21:00 85 23 106/65 (79) 100 08/10/20 21:00 18 110/71 Mechanical Ventilator 40 08/10/20 20:00 Mechanical Ventilator 08/10/20 20:00 88 08/10/20 20:00 23 106/65 Mechanical Ventilator 40 08/10/20 20:00 98.3 87 21 127/78 (94) 100 08/10/20 20:00 40 08/10/20 19:13 89 19 40 08/10/20 19:04 89 20 135/72 (93) 100 08/10/20 19:00 21 127/78 Mechanical Ventilator 40 08/10/20 19:00 94 43 163/82 (109) 100 08/10/20 18:45 94 20 155/87 (109) 100 08/10/20 18:30 85 29 176/90 (118) 100 08/10/20 18:15 76 16 105/59 (74) 100 08/10/20 18:00 77 16 85/52 (63) 100 08/10/20 17:45 80 15 108/62 (77) 100 08/10/20 17:30 79 13 75/51 (59) 100 08/10/20 17:28 79 7 74/49 (57) 100 08/10/20 17:15 79 15 78/49 (59) 100 08/10/20 17:12 80 13 82/59 (67) 100 08/10/20 17:00 81 16 71/48 (56) 100 08/10/20 16:45 16 96/54 35 Height (Feet): 6 Height (Inches): 1.00 Weight (Pounds): 190 General Appearance: other - on vent, no pressors HEENT: normocephalic, atraumatic Respiratory/Chest: crackles/rales, rhonchi - bilaterally Cardiovascular: normal rate, regular rhythm, no gallop/murmur, no JVD Abdomen: normal bowel sounds, soft, non tender, no organomegaly, non distended Genitourinary: other - + bee - urine clear Extremities: no cyanosis Skin: no rash 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 Considerable right upper lobe atelectatic changes. COPD changes A few areas of atelectasis and possibly some consolidation is seen in the left lung Small right pleural fluid Evidence of old granulomatous disease 3 mm mm noncalcified nodule in the right middle lobe, not definitely evident previously. Recommend short interval 6 to 12 month follow-up CT scan Dilated right main pulmonary artery, indicative of pulmonary arterial hypertension Satisfactory endotracheal intubation Cholelithiasis Chest x-ray - 08/06/20 - Procedure: XRAY Chest 1v Indication: Abnormal chest sounds Technique: One view of the chest Comparison: 08/05/2020 Findings: Stable satisfactory the position of endotracheal tube. There is developing atelectasis in the right upper lung. There is persistent pleural fluid on the right and increasing parenchymal consolidation. Left lung pleural space remain clear. The heart size is normal Impression: Increasing right upper lobe atelectasis and right lung infiltrate. Unchanged right pleural effusion Chest x-ray - 08/09/20 Procedure: XRAY Chest 1v EXAM: XR Chest, 1 View CLINICAL HISTORY: INFECT TECHNIQUE: Frontal view of the chest. COMPARISON: Chest radiograph August 06, 2020. FINDINGS/IMPRESSION: Stable endotracheal tube. Opacity within the right lower lung field consistent with infiltrate, which is mild improving. Mild-moderate pleural effusion which is mildly worsening. No pneumothorax. The heart size is within normal limit. Calcified, tortuous aorta. Chest x-ray - 08/11/20 - IMPRESSION: No change in bibasilar infiltrate and small bilateral effusions. Endotracheal tube and NG tube remain in place. Microbiology Date/Time Source Procedure Growth Status 08/07/20 04:00 Sputum Gram Stain - Final Complete 08/07/20 04:00 Sputum Sputum Culture - Final NO GROWTH AFTER 48 HOURS Complete 08/06/20 03:20 Blood Blood Culture - Preliminary NO GROWTH AFTER 4 DAYS Resulted 08/04/20 05:50 Rectum - Final NO CARBAPENEM-RESISTANT ENTEROBACTERI... Complete 08/03/20 19:41 Urine,Clean Catch Urine Culture - Final Mixed Gram Positive Organism Complete Laboratory Tests Test 08/11/20 03:00 White Blood Count 12.7 K/UL (4.8-10.8) H Red Blood Count 3.42 M/UL (4.70-6.10) L Hemoglobin 9.3 G/DL (14.2-18.0) L Hematocrit 30.7 % (42.0-52.0) L Mean Corpuscular Volume 90 FL (80-99) Mean Corpuscular Hemoglobin 27.1 PG (27.0-31.0) Mean Corpuscular Hemoglobin Concent 30.2 G/DL (32.0-36.0) L Red Cell Distribution Width 14.5 % (11.6-14.8) Platelet Count 240 K/UL (150-450) Mean Platelet Volume 6.9 FL (6.5-10.1) Neutrophils (%) (Auto) % (45.0-75.0) Lymphocytes (%) (Auto) % (20.0-45.0) Monocytes (%) (Auto) % (1.0-10.0) Eosinophils (%) (Auto) % (0.0-3.0) Basophils (%) (Auto) % (0.0-2.0) Differential Total Cells Counted 100 Neutrophils % (Manual) 86 % (45-75) H Lymphocytes % (Manual) 7 % (20-45) L Monocytes % (Manual) 6 % (1-10) Eosinophils % (Manual) 0 % (0-3) Basophils % (Manual) 0 % (0-2) Band Neutrophils 1 % (0-8) Platelet Estimate Adequate Platelet Morphology Normal Hypochromasia 1+ Anisocytosis 1+ Schistocytes Occasional Sodium Level 143 MMOL/L (136-145) Potassium Level 4.1 MMOL/L (3.5-5.1) Chloride Level 108 MMOL/L (98-107) H Carbon Dioxide Level 32 MMOL/L (21-32) Anion Gap 3 mmol/L (5-15) L Blood Urea Nitrogen 17 mg/dL (7-18) Creatinine 0.7 MG/DL (0.55-1.30) Estimat Glomerular Filtration Rate > 60 mL/min (>60) Glucose Level 139 MG/DL (74-106) H Calcium Level 8.2 MG/DL (8.5-10.1) L Phosphorus Level 2.7 MG/DL (2.5-4.9) Vancomycin Level Trough 19.9 ug/mL (5.0-12.0) H Current Medications Medications (Trade) Dose Ordered Sig/Armand Route PRN Reason Start Time Stop Time Status Last Admin Dose Admin Acetaminophen (Tylenol) 650 mg Q6H PRN NG Mild Pain (Pain Scale 1-3) 08/08/20 14:00 09/07/20 13:59 08/09/20 20:31 Acetaminophen (Tylenol) 650 mg Q6H PRN NG Temp >100.5 08/08/20 14:00 09/07/20 13:59 Albuterol/ Ipratropium (Combivent Respimat) 1 puff Q4H PRN INH Shortness of Breath 08/04/20 10:00 09/03/20 09:59 Albuterol/ Ipratropium (Combivent Respimat) 1 puff Q8HR INH 08/04/20 09:30 09/03/20 09:29 08/06/20 14:00 Cefepime HCl 2 gm/ Dextrose 110 ml @ 220 mls/hr EVERY 12 HOURS IV 08/05/20 21:00 08/18/20 23:59 08/11/20 08:59 Chlorhexidine Gluconate (Maddie-Hex 2%) 1 applic DAILY@2000 TOPIC 08/07/20 20:00 11/05/20 19:59 08/10/20 20:05 Dextrose/Sodium Chloride 1,000 ml @ 75 mls/hr [id number] IV 08/06/20 11:00 09/05/20 10:59 08/11/20 10:19 Enoxaparin Sodium (Lovenox) 60 mg EVERY 12 HOURS SUBQ 08/05/20 21:00 11/03/20 20:59 08/11/20 09:00 Famotidine (Pepcid I.v.) 20 mg Q12HR IVP 08/06/20 11:00 09/05/20 10:59 08/11/20 09:00 Fentanyl Citrate 250 ml @ 0 mls/hr Q24H PRN IV . 08/10/20 23:00 08/12/20 22:59 08/10/20 23:36 Gabapentin (Neurontin) 300 mg EVERY 8 HOURS NG 08/08/20 22:00 09/04/20 08:59 08/11/20 15:36 Heparin Sodium/ Sodium Chloride (Heparin 1000 units/500ml Premix) 1,000 unit ONCE PRN IV radiology procedure 08/10/20 09:15 08/12/20 09:14 Lidocaine HCl (Xylocaine 1% 30ml) 30 ml ONCE PRN INJ radiology procedure 08/10/20 09:15 08/12/20 09:14 Lorazepam (Ativan 2mg/ml 1ml) 0.5 mg Q6H PRN IV For Anxiety 08/04/20 21:30 08/11/20 21:29 Methylprednisolone Sodium Succinate (Solu-MEDROL) 40 mg EVERY 6 HOURS IVP 08/05/20 12:00 11/03/20 11:59 08/11/20 12:19 Metronidazole 100 ml @ 100 mls/hr Q8HR IVPB 08/09/20 22:00 08/16/20 21:59 08/11/20 15:36 Midazolam HCl 200 ml @ 0 mls/hr Q24H PRN IV To Patient Comfort 08/05/20 15:30 08/12/20 15:29 08/08/20 18:59 Vancomycin HCl 250 ml @ 166.667 mls/hr Q8HR@0400,1200,2000 IVPB 08/08/20 20:00 08/16/20 23:59 08/11/20 12:20 Vancomycin HCl ([facility] pharmacy to dose) 1 ea DAILY PRN MISC Per rx protocol 08/04/20 09:15 09/03/20 09:14 Kemar Nichole MD Aug 11, 2020 16:51
--- NOTE | 2020-08-11 17:53 | Internal Med Progress Note ---
Subjective Date of Service: Aug 11, 2020 Physician Name Pablo Hickman Attending Physician Torres Saul MD Current Medications Medications (Trade) Dose Ordered Sig/Armand Route PRN Reason Start Time Stop Time Status Last Admin Dose Admin Acetaminophen (Tylenol) 650 mg Q6H PRN NG Mild Pain (Pain Scale 1-3) 08/08/20 14:00 09/07/20 13:59 08/09/20 20:31 Acetaminophen (Tylenol) 650 mg Q6H PRN NG Temp >100.5 08/08/20 14:00 09/07/20 13:59 Albuterol/ Ipratropium (Combivent Respimat) 1 puff Q4H PRN INH Shortness of Breath 08/04/20 10:00 09/03/20 09:59 Albuterol/ Ipratropium (Combivent Respimat) 1 puff Q8HR INH 08/04/20 09:30 09/03/20 09:29 08/06/20 14:00 Cefepime HCl 2 gm/ Dextrose 110 ml @ 220 mls/hr EVERY 12 HOURS IV 08/05/20 21:00 08/18/20 23:59 08/11/20 08:59 Chlorhexidine Gluconate (Maddie-Hex 2%) 1 applic DAILY@2000 TOPIC 08/07/20 20:00 11/05/20 19:59 08/10/20 20:05 Dextrose/Sodium Chloride 1,000 ml @ 75 mls/hr [id number] IV 08/06/20 11:00 09/05/20 10:59 08/11/20 10:19 Enoxaparin Sodium (Lovenox) 60 mg EVERY 12 HOURS SUBQ 08/05/20 21:00 11/03/20 20:59 08/11/20 09:00 Famotidine (Pepcid I.v.) 20 mg Q12HR IVP 08/06/20 11:00 09/05/20 10:59 08/11/20 09:00 Fentanyl Citrate 250 ml @ 0 mls/hr Q24H PRN IV . 08/10/20 23:00 08/12/20 22:59 08/10/20 23:36 Gabapentin (Neurontin) 300 mg EVERY 8 HOURS NG 08/08/20 22:00 09/04/20 08:59 08/11/20 15:36 Heparin Sodium/ Sodium Chloride (Heparin 1000 units/500ml Premix) 1,000 unit ONCE PRN IV radiology procedure 08/10/20 09:15 08/12/20 09:14 Lidocaine HCl (Xylocaine 1% 30ml) 30 ml ONCE PRN INJ radiology procedure 08/10/20 09:15 08/12/20 09:14 Lorazepam (Ativan 2mg/ml 1ml) 0.5 mg Q6H PRN IV For Anxiety 08/04/20 21:30 08/11/20 21:29 Methylprednisolone Sodium Succinate (Solu-MEDROL) 40 mg EVERY 6 HOURS IVP 08/05/20 12:00 11/03/20 11:59 08/11/20 12:19 Metronidazole 100 ml @ 100 mls/hr Q8HR IVPB 08/09/20 22:00 08/16/20 21:59 08/11/20 15:36 Midazolam HCl 200 ml @ 0 mls/hr Q24H PRN IV To Patient Comfort 08/05/20 15:30 08/12/20 15:29 08/08/20 18:59 Vancomycin HCl 250 ml @ 166.667 mls/hr Q8HR@0400,1200,2000 IVPB 08/08/20 20:00 08/16/20 23:59 08/11/20 12:20 Vancomycin HCl ([facility] pharmacy to dose) 1 ea DAILY PRN MISC Per rx protocol 08/04/20 09:15 09/03/20 09:14 Allergies: Coded Allergies: PENICILLINS (Verified Allergy, Unknown, 03/10/20) PHENYTOIN (Verified Allergy, Unknown, 03/10/20) ROS Limited/Unobtainable: Yes Subjective 79 YO M admitted with respiratory distress. Now pneumonia. Cover for Int Med- Dr Saul. ICU. Intubated and sedated Objective Last Vital Signs Date Time Temp Pulse Resp B/P (MAP) Pulse Ox O2 Delivery O2 Flow Rate FiO2 08/11/20 12:30 78 20 128/73 (91) 100 08/11/20 12:00 Mechanical Ventilator 08/11/20 12:00 40 08/11/20 12:00 98.6 08/08/20 06:02 10.0 Laboratory Tests Test 08/11/20 03:00 White Blood Count 12.7 K/UL (4.8-10.8) H Red Blood Count 3.42 M/UL (4.70-6.10) L Hemoglobin 9.3 G/DL (14.2-18.0) L Hematocrit 30.7 % (42.0-52.0) L Mean Corpuscular Volume 90 FL (80-99) Mean Corpuscular Hemoglobin 27.1 PG (27.0-31.0) Mean Corpuscular Hemoglobin Concent 30.2 G/DL (32.0-36.0) L Red Cell Distribution Width 14.5 % (11.6-14.8) Platelet Count 240 K/UL (150-450) Mean Platelet Volume 6.9 FL (6.5-10.1) Neutrophils (%) (Auto) % (45.0-75.0) Lymphocytes (%) (Auto) % (20.0-45.0) Monocytes (%) (Auto) % (1.0-10.0) Eosinophils (%) (Auto) % (0.0-3.0) Basophils (%) (Auto) % (0.0-2.0) Differential Total Cells Counted 100 Neutrophils % (Manual) 86 % (45-75) H Lymphocytes % (Manual) 7 % (20-45) L Monocytes % (Manual) 6 % (1-10) Eosinophils % (Manual) 0 % (0-3) Basophils % (Manual) 0 % (0-2) Band Neutrophils 1 % (0-8) Platelet Estimate Adequate Platelet Morphology Normal Hypochromasia 1+ Anisocytosis 1+ Schistocytes Occasional Sodium Level 143 MMOL/L (136-145) Potassium Level 4.1 MMOL/L (3.5-5.1) Chloride Level 108 MMOL/L (98-107) H Carbon Dioxide Level 32 MMOL/L (21-32) Anion Gap 3 mmol/L (5-15) L Blood Urea Nitrogen 17 mg/dL (7-18) Creatinine 0.7 MG/DL (0.55-1.30) Estimat Glomerular Filtration Rate > 60 mL/min (>60) Glucose Level 139 MG/DL (74-106) H Calcium Level 8.2 MG/DL (8.5-10.1) L Phosphorus Level 2.7 MG/DL (2.5-4.9) Vancomycin Level Trough 19.9 ug/mL (5.0-12.0) H Intake and Output 08/10/20 08/11/20 19:00 07:00 Intake Total 1767 ml 2192.000 ml Output Total 1450 ml 1310 ml Balance 317 ml 882.000 ml IV Total 1467 ml 1832.000 ml Tube Feeding 300 ml 360 ml Output Urine Total 1450 ml 1310 ml Objective PHYSICAL EXAMINATION: GENERAL: The patient is well-developed, well-nourished male, in moderate respiratory distress. HEENT: Eyes, pupils are equal and responsive to light and accommodation. Extraocular movements are intact. NECK: Supple. No lymphadenopathy. CHEST: Mech vent; Lungs are clear to auscultation bilaterally without wheezes or rales. CARDIOVASCULAR: Regular rhythm and rate. S1-S2 are normal without murmurs, rubs, or gallops. ABDOMEN: Soft, nontender, and nondistended. Positive bowel sounds. No evidence of hepatosplenomegaly. Currently, no rebound or guarding noted. EXTREMITIES: Negative for clubbing, cyanosis, or edema. RECTAL/GENITAL: Not performed. NEUROLOGIC: Cranial nerves II through XII are grossly intact without focal deficits. Motor strength is 5/5 bilaterally. Deep tendon reflexes are 2+ plantar. Assessment/Plan Assessment/Plan ASSESSMENT: This is an 79-year-old male with. 1. Respiratory failure-intubated 08/05/20; mech vent 2. Right-sided pneumonia. 3. Hypertension. 4. Congestive heart failure. 5. Chronic obstructive pulmonary disease. 6. Anemia. 7. Cerebrovascular disease, status post cerebrovascular accident. 8. Peripheral vascular disease. 9. Gastroesophageal reflux disease. 10. Major depression. 11. Seizure disorder. 12. History of COVID-19 positive in February 2020. 13. Benign prostatic hypertrophy. TREATMENT: 1. Respiratory failure/right-sided pneumonia pulmonary consultation= Dr. Micha Schneider. ABX= vancomycin, flagyl and cefepime. Infectious Disease= Dr. Urrutia. Follow recommendations of Infectious Disease and Pulmonary. 2. Hypertension. The patient is currently hypotensive. 3. Congestive heart failure. 4. Chronic obstructive pulmonary disease. Continue DuoNeb as above. 5. Anemia. 6. Cerebrovascular disease. 7. Peripheral vascular disease. 8. Gastroesophageal reflux disease. Continue famotidine as above. 9. Major depression. Seizure disorder. 10. COVID-19 positive, history in February 2020. 11. Benign prostatic hypertrophy. Continue Flomax as above. Pablo Hickman MD Aug 11, 2020 17:53
--- NOTE | 2020-08-11 19:28 | Surgery Progress Note ---
Surgery Progress Note Subjective Additional Comments ill appearing on support no n/v labs noted imaging reviewed Objective Last 24 Hour Vital Signs Date Time Temp Pulse Resp B/P (MAP) Pulse Ox O2 Delivery O2 Flow Rate FiO2 08/11/20 18:57 78 18 40 08/11/20 15:48 87 17 40 08/11/20 12:30 78 20 128/73 (91) 100 08/11/20 12:15 81 20 121/78 (92) 100 08/11/20 12:00 Mechanical Ventilator 08/11/20 12:00 40 08/11/20 12:00 17 119/73 Mechanical Ventilator 40 08/11/20 12:00 98.6 83 17 119/73 (88) 100 08/11/20 11:55 78 18 40 08/11/20 11:45 23 119/73 Mechanical Ventilator 40 08/11/20 11:45 93 41 160/91 (114) 99 08/11/20 11:30 93 21 154/88 (110) 100 08/11/20 11:15 87 20 130/81 (97) 100 08/11/20 11:00 31 111/71 Mechanical Ventilator 40 08/11/20 11:00 86 23 149/81 (103) 100 08/11/20 10:45 77 15 115/74 (88) 100 08/11/20 10:30 28 111/70 Mechanical Ventilator 40 08/11/20 10:30 88 26 131/76 (94) 100 08/11/20 10:15 77 17 111/68 (82) 100 08/11/20 10:00 31 111/71 Mechanical Ventilator 40 08/11/20 10:00 78 16 104/69 (81) 100 08/11/20 09:45 83 19 149/83 (105) 100 08/11/20 09:30 74 16 110/66 (81) 100 08/11/20 09:15 79 16 97/66 (76) 100 08/11/20 09:00 77 8 99/58 (72) 100 08/11/20 09:00 35 106/72 Mechanical Ventilator 40 08/11/20 08:45 79 5 100/60 (73) 100 08/11/20 08:30 78 15 109/64 (79) 100 08/11/20 08:15 86 33 131/86 (101) 100 08/11/20 08:00 Mechanical Ventilator 08/11/20 08:00 23 105/47 Mechanical Ventilator 40 08/11/20 08:00 40 08/11/20 08:00 98.8 78 17 114/69 (84) 08/11/20 08:00 82 08/11/20 07:45 75 20 40 08/11/20 07:30 19 140/81 Mechanical Ventilator 40 08/11/20 07:00 79 21 115/67 (83) 100 08/11/20 07:00 21 115/67 40 08/11/20 07:00 20 134/77 Mechanical Ventilator 40 08/11/20 06:30 79 21 08/11/20 06:00 80 20 153/88 (109) 100 08/11/20 06:00 20 153/88 Mechanical Ventilator 40 08/11/20 05:00 17 126/76 Mechanical Ventilator 40 08/11/20 05:00 78 17 126/76 (93) 100 08/11/20 04:00 99.0 81 18 126/72 (90) 100 08/11/20 04:00 18 126/72 Mechanical Ventilator 40 08/11/20 04:00 84 08/11/20 04:00 Mechanical Ventilator 08/11/20 04:00 40 08/11/20 03:46 78 17 40 08/11/20 03:00 78 17 129/69 (89) 100 08/11/20 03:00 17 129/69 Mechanical Ventilator 40 08/11/20 02:00 26 138/77 Mechanical Ventilator 40 08/11/20 02:00 85 26 138/77 (97) 100 08/11/20 01:00 30 112/74 Mechanical Ventilator 40 08/11/20 01:00 80 30 112/74 (87) 100 08/11/20 00:00 Mechanical Ventilator 08/11/20 00:00 98.2 83 24 111/69 (83) 100 08/11/20 00:00 40 08/11/20 00:00 24 111/69 Mechanical Ventilator 40 08/11/20 00:00 83 08/10/20 23:45 82 18 40 08/10/20 23:36 28 109/70 Mechanical Ventilator 40 08/10/20 23:00 92 34 191/85 (120) 100 08/10/20 23:00 24 111/69 Mechanical Ventilator 40 08/10/20 22:00 81 18 110/71 (84) 100 08/10/20 22:00 24 154/85 Mechanical Ventilator 40 08/10/20 21:00 85 23 106/65 (79) 100 08/10/20 21:00 18 110/71 Mechanical Ventilator 40 08/10/20 20:00 Mechanical Ventilator 08/10/20 20:00 88 08/10/20 20:00 23 106/65 Mechanical Ventilator 40 08/10/20 20:00 98.3 87 21 127/78 (94) 100 08/10/20 20:00 40 I&O Intake and Output 08/10/20 08/11/20 19:00 07:00 Intake Total 1767 ml 2192.000 ml Output Total 1450 ml 1310 ml Balance 317 ml 882.000 ml IV Total 1467 ml 1832.000 ml Tube Feeding 300 ml 360 ml Output Urine Total 1450 ml 1310 ml Dressing: saturated Cardiovascular: RSR Respiratory: decreased breath sounds Abdomen: soft, non-tender, present bowel sounds Extremities: no tenderness, no cyanosis Laboratory Tests Test 08/11/20 03:00 White Blood Count 12.7 K/UL (4.8-10.8) H Red Blood Count 3.42 M/UL (4.70-6.10) L Hemoglobin 9.3 G/DL (14.2-18.0) L Hematocrit 30.7 % (42.0-52.0) L Mean Corpuscular Volume 90 FL (80-99) Mean Corpuscular Hemoglobin 27.1 PG (27.0-31.0) Mean Corpuscular Hemoglobin Concent 30.2 G/DL (32.0-36.0) L Red Cell Distribution Width 14.5 % (11.6-14.8) Platelet Count 240 K/UL (150-450) Mean Platelet Volume 6.9 FL (6.5-10.1) Neutrophils (%) (Auto) % (45.0-75.0) Lymphocytes (%) (Auto) % (20.0-45.0) Monocytes (%) (Auto) % (1.0-10.0) Eosinophils (%) (Auto) % (0.0-3.0) Basophils (%) (Auto) % (0.0-2.0) Differential Total Cells Counted 100 Neutrophils % (Manual) 86 % (45-75) H Lymphocytes % (Manual) 7 % (20-45) L Monocytes % (Manual) 6 % (1-10) Eosinophils % (Manual) 0 % (0-3) Basophils % (Manual) 0 % (0-2) Band Neutrophils 1 % (0-8) Platelet Estimate Adequate Platelet Morphology Normal Hypochromasia 1+ Anisocytosis 1+ Schistocytes Occasional Sodium Level 143 MMOL/L (136-145) Potassium Level 4.1 MMOL/L (3.5-5.1) Chloride Level 108 MMOL/L (98-107) H Carbon Dioxide Level 32 MMOL/L (21-32) Anion Gap 3 mmol/L (5-15) L Blood Urea Nitrogen 17 mg/dL (7-18) Creatinine 0.7 MG/DL (0.55-1.30) Estimat Glomerular Filtration Rate > 60 mL/min (>60) Glucose Level 139 MG/DL (74-106) H Calcium Level 8.2 MG/DL (8.5-10.1) L Phosphorus Level 2.7 MG/DL (2.5-4.9) Vancomycin Level Trough 19.9 ug/mL (5.0-12.0) H Plan Problems: (1) Abdominal distension Assessment & Plan: 79M abdominal distention, respiratory decline, altered mental status. on exam noted abd soft, mild distended, non tender. no n/v/f/c. unlikely aspiration. non tender one exam. pending urine and covid test. no acute surgical intervention. hold on ct. kub ordered. will follow with exam and recs. keep npo for now. iv fluids. respiratory pulm support. will follow with recs thank you decline since admission now intubated ng tube to suction no acute surgical intervention cont abx kub noted wean vent enema when stable The rectum is considerably distended with stool. Considerable stool is also seen in the descending colon. The colon is diffusely gas filled, upper limits of normal in caliber. No significant small bowel gas demonstrated. No masses or unusual calcifications. The included lung bases demonstrate bilateral right greater than left pleural effusions. There is a Butler catheter Impression: Distended stool-filled rectum, fecal impaction possible Gas-filled upper limits of normal caliber colon, nonspecific Bilateral right greater than left pleural effusions (2) UTI (urinary tract infection) (3) Pneumonia (4) Multiple pulmonary nodules (5) Respiratory failure with hypoxia (6) Pneumonia due to COVID-19 virus (7) History of CVA (cerebrovascular accident) (8) COPD (chronic obstructive pulmonary disease) (9) HTN (hypertension) (10) Hx of prostatic malignancy (11) Major depression (12) Seizure disorder Destin Brown Aug 11, 2020 19:28
--- NOTE | 2020-08-11 19:30 | NUR ---
NURSE NOTES: received report from Zandra LEMON.
--- NOTE | 2020-08-11 20:00 | NUR ---
NURSE NOTES: patient in bed sedated rass score -2. orally intubated fi02 40% satting 100%. OGT intact with 5cc residual On Glucerna 1.5 at 30cc/hr. HOB elevated. Butler draining. Patient with Right Femoral TLC infusing Fentanyl at 100mcg/hr, D5 1/2 NS at 75cc/hr. LBIBY PICC line intact. bed alarm on. bed locked and in low position. will continue plan of care. Contact isolation maintained and observed.
[2020-08-11] MEDS: Dyna-Hex 2% Top Sol 2oz TOPIC SCH (20:52)
--- NOTE | 2020-08-11 20:59 | Procedure Note ---
DATE OF PROCEDURE: 08/08/2020 PROCEDURE: Bronchoscopy. INDICATION: Right bronchus intermedius narrowing. PROCEDURE: No family or conservator was available for consent. Discussed with medical surgical team on the case including Dr. Pablo Hickman, Dr. Brown who decided the patient would benefit from endoscopy to determine his prognosis. Using existing endotracheal tube, a bronchoscope was inserted down to the level of yashira. The patient had a 7.5 endotracheal tube making procedure difficult. A quick inspection was performed of the yashira was found to be sharp and adequate inspection was done of the left mainstem and right mainstem down to level of the RBI. No obvious endobronchial pathology was identified. No secretions were noted. Bronchoscopy procedure was completed. There were no complications. CONCLUSION: No endobronchial pathology identified. Micha Schneider M.D. DR: Erasmo JOB#: [id number] CC: TOBY
--- NOTE | 2020-08-11 22:00 | NUR ---
NURSE NOTES: Patient in bed resting. turned and repositioned in bed. oral care provided. no fever. no diarrhea. no s/s of hypo/hyperglycemia. will continue plan of care.
[2020-08-12] VITALS (47 sets, daily range): BP systolic 67–174; BP diastolic 48–119
--- NOTE | 2020-08-12 | NUR ---
NURSE NOTES: patient in bed sedated rass score -2. Continue on Fentanyl at 100mcg/hr D5 1/2 NS at 75cc/hr. no s/s of acute distress noted. comfort measure provided. no moaning no facial grimaces. call light within easy reach. will continue plan of care.
[2020-08-12] MEDS: Solu-MEDROL 40mg Inj IVP SCH ×4 (00:51→17:06)
[2020-08-12] MEDS: Norepinephrine 4mg/NS Premix 250 ML IV SCH (00:59)
--- NOTE | 2020-08-12 00:59 | NUR ---
NURSE NOTES: Patient BP 75/53 HR 74 started Levophed at 2mcg/min
[2020-08-12] MEDS: fentaNYL 2500mcg/NS 250ml 250 ML IV PRN (02:16)
--- NOTE | 2020-08-12 03:00 | NUR ---
NURSE NOTES: patient in bed sedated rass score -2. orally intubated fi02 40% satting 100%. OGT intact no residual On Glucerna 1.5 at 30cc/hr. HOB elevated. Butler draining. Patient with Right Femoral TLC infusing Fentanyl at 100mcg/hr, D5 1/2 NS at 75cc/hr, Levophed at 4mcg/min BP 132/74. LIBBY PICC line intact. bed alarm on. bed locked and in low position. will continue plan of care. Contact isolation maintained and observed.
[2020-08-12] MEDS: Vancomycin 1.25gm/250ml Premix IVPB SCH ×3 (04:26→20:10)
--- NOTE | 2020-08-12 05:00 | NUR ---
NURSE NOTES: Bed Bath given tolerated well.
[2020-08-12 05:35] LABS: HEMATOCRIT 31.1 % (42.0-52.0); HEMOGLOBIN 9.3 G/DL (14.2-18.0); MEAN CORPUSCULAR VOLUME 90 FL (80-99); PLATELET COUNT 323 K/UL (150-450); RED BLOOD COUNT 3.46 M/UL (4.70-6.10); RED CELL DISTRIBUTION WIDTH 14.5 % (11.6-14.8); WHITE BLOOD COUNT 17.5 K/UL (4.8-10.8)
[2020-08-12] MEDS: Gabapentin 300 MG/6 ML Soln NG SCH ×3 (05:43→22:21)
[2020-08-12 06:16] LABS: ALANINE AMINOTRANSFERASE 40 U/L (12-78); ALBUMIN/GLOBULIN RATIO 0.5 (1.0-2.7); ALKALINE PHOSPHATASE 60 U/L (46-116); ANION GAP 9 mmol/L (5-15); ASPARTATE AMINO TRANSFERASE 31 U/L (15-37); BILIRUBIN,TOTAL 0.4 MG/DL (0.2-1.0); BLOOD UREA NITROGEN 18 mg/dL (7-18); CALCIUM 8.1 MG/DL (8.5-10.1); CARBON DIOXIDE 28 MMOL/L (21-32); CHLORIDE 103 MMOL/L (98-107); CREATININE 0.7 MG/DL (0.55-1.30); POTASSIUM 3.9 MMOL/L (3.5-5.1); SODIUM 140 MMOL/L (136-145)
--- NOTE | 2020-08-12 07:30 | NUR ---
NURSE HAND-OFF REPORT: Latest Vital Signs: Temperature 98.0 , Pulse 69 , B/P 125 /73 , Respiratory Rate 20 , O2 SAT 99 , Mechanical Ventilator, O2 Flow Rate . Vital Sign Comment: EKG Rhythm: Sinus Rhythm Rhythm change?: N MD Notified?: - MD Response: Latest Castro Fall Score: 50 Fall Risk: High Risk Safety Measures: Call light Within Reach, Bed Alarm Zone 2, Side Rails Side Rails x2, Bed position Low and Locked. Fall Precautions: Yellow Socks Yellow Gown Door Sign Patient Fall Education Report given to Kavitha LEMON.
--- NOTE | 2020-08-12 07:31 | NUR ---
NURSE NOTES: Pt received from ION Cohen. Pt is sedated, opens eyes to voice and makes eye contact for approx 5 sec, RASS noted -2; gag reflex intact, pt withdraws to pain, bilat pupils equal and round 3mm with sluggish rxn to light. Pt is SR to patient monitor with 2+ radial and dorsalis pedis pulses. 2+ pitting edema noted to BUE. Pt is orally intubated with a 7.5 ETT noted 23 cm at the lip with the following settings: AC 16 TV 500 FiO2 40 % Peep 5. lung robles noted diminished upon auscultation. Pt has an OGT running Glucerna 1.5 at 30 cc/hr. Abdomen is round, soft, and non-tender w/ active bowel sounds to all quadrants. F/C noted draining yellow, clear urine. Skin is intact. Pt has a LIBBY PICC running fentanyl gtt at 100 mcg/hr and lD5 1/2 NS at 75 cc/hr, and a R Fem TLC running levophed gtt at 4 mcg/min. Bed in lowest position, alarm on, side rails up x 2 and padded per seizure precaution, call light within reach. Will continue to monitor. Addendum: 08/12/20 at 1439 by Kavitha Liu RN Amendment: 1+ pitting edema noted to BUE.
--- NOTE | 2020-08-12 08:00 | NUR ---
NURSE NOTES: Pt repositioned. PO care provided and pt endotracheally suctioned. Afebrile. Failed SBT (CPAP PS 8) - within 3 minutes, pt became tachypneic (RR 30s) with RSBI in 120s per Raheel RT. Pt placed back on AC mode with previous settings. No distress noted.
--- NOTE | 2020-08-12 08:32 | NUR ---
RD ASSESSMENT & RECOMMENDATIONS SEE CARE ACTIVITY FOR COMPLETE ASSESSMENT DAILY ESTIMATED NEEDS: Needs based on Critical Care/ 75.7kg abw 22-28 kcals/kg 9155-4311 total kcals 1.2-2 g protein/kg 90-151 g total protein 25-30 mL/kg 3003-6103 total fluid mLs NUTRITION DIAGNOSIS: Swallowing difficulty R/T respiratory failure as evidenced by pt orally intubated, sedated, now off pressor support, now on OGT feeds. CURRENT TF:Now Glucerna 1.5 goal of 30ml/hr ENTERAL NUTRITION RECOMMENDATIONS: WHEN HEMODYNAMICALLY STABLE: Vital AF 1.2 @ goal of 60ml/hr x 24 hrs to provide 1440ml, 1728kcal, 108g prot, 1168ml free water * FEED WITH HEMODYNAMIC STABILITY -> Initiate Vital AF 1.2 @ 10ml/hr x 6hrs, advance 10ml q 6-8 hrs as tolerated to goal rate -> HOB over 30 degrees/ water flush 120ml q 4hrs without IVF WITHOUT HEMODYNAMIC STABILITY, rec trophic feeding of Vital AF @10ml/hr to maintain gut integrity if able to keep HOB > 30 degrees ADDITIONAL RECOMMENDATIONS: 1) Calibrated bedscale wts 2) Monitor hemodynamic stability: NE @4mcg 3) Consider IV change to D5: Na trending up, to prevent hypoglycemia 4) Monitor lytes, replete as needed 5) rec niss coverage for improved glycemic control .
[2020-08-12] MEDS: Cefepime 2gm/D5W 110ml IV SCH ×4 (08:59→20:09)
[2020-08-12] MEDS ORDERED: Albuterol/Ipratropium 3ml neb HHN PRN (09:00)
--- NOTE | 2020-08-12 09:00 | NUR ---
NURSE NOTES: Pt seen by Dr Brown.
[2020-08-12] MEDS: Enoxaparin 60mg Inj SUBQ SCH ×2 (09:10→20:11)
--- NOTE | 2020-08-12 10:00 | NUR ---
NURSE NOTES: Pt repositioned. No distress noted.
--- NOTE | 2020-08-12 10:20 | NUR ---
NURSE NOTES: Pt seen by Dr Burgess - all labs reviewed.
--- NOTE | 2020-08-12 10:46 | NUR ---
NURSE NOTES: Pt seen by Dr Schneider.
[2020-08-12] MEDS: Albuterol/Ipratropium 3ml neb HHN SCH ×3 (10:53→23:00)
--- NOTE | 2020-08-12 11:05 | Pulmonology Progress Note ---
Subjective ROS Limited/Unobtainable: Yes Interval Events: Intubated 08/05/20 Constitutional: Reports: fatigue, other - on vent but no pressors ; Denies: fever HEENT: Repors: no symptoms Respiratory: Reports: shortness of breath Cardiovascular: Reports: no symptoms Gastrointestinal/Abdominal: Denies: nausea, vomiting, diarrhea Genitourinary: Reports: no symptoms Neurologic: Reports: no symptoms Psychiatric: Reports: other - NA Skin: Denies: rash Musculoskeletal: Reports: other - NA Allergies: Coded Allergies: PENICILLINS (Verified Allergy, Unknown, 03/10/20) PHENYTOIN (Verified Allergy, Unknown, 03/10/20) Objective Last 24 Hour Vital Signs Date Time Temp Pulse Resp B/P (MAP) Pulse Ox O2 Delivery O2 Flow Rate FiO2 08/12/20 10:00 78 20 137/108 (118) 84 08/12/20 09:00 60 16 111/61 (78) 100 08/12/20 08:00 98.3 60 16 105/64 (78) 100 08/12/20 08:00 64 08/12/20 08:00 40 08/12/20 07:30 69 20 125/73 (90) 99 08/12/20 07:25 76 18 40 08/12/20 07:15 63 16 101/66 (78) 100 08/12/20 07:07 58 16 101/62 (75) 100 08/12/20 07:00 66 16 84/59 (67) 100 08/12/20 07:00 22 101/62 Mechanical Ventilator 40 08/12/20 06:45 66 16 92/59 (70) 100 08/12/20 06:30 65 21 08/12/20 06:30 67 16 101/62 (75) 100 08/12/20 06:15 66 2 108/63 (78) 100 08/12/20 06:00 22 128/81 Mechanical Ventilator 40 08/12/20 06:00 78 23 128/81 (97) 100 08/12/20 05:21 82 19 40 08/12/20 05:00 80 25 174/119 (137) 99 08/12/20 05:00 24 100/67 Mechanical Ventilator 40 08/12/20 04:45 75 21 117/78 (91) 100 08/12/20 04:30 73 17 127/76 (93) 100 08/12/20 04:15 73 27 134/74 (94) 100 08/12/20 04:00 74 08/12/20 04:00 27 125/75 Mechanical Ventilator 40 08/12/20 04:00 98.0 74 19 125/75 (92) 100 08/12/20 04:00 40 08/12/20 04:00 Mechanical Ventilator 08/12/20 03:45 77 17 112/70 (84) 100 08/12/20 03:41 75 16 40 08/12/20 03:30 90 25 144/82 (102) 100 08/12/20 03:15 75 22 150/93 (112) 98 08/12/20 03:00 70 19 132/74 (93) 100 08/12/20 03:00 22 132/74 Mechanical Ventilator 40 08/12/20 02:45 73 18 121/76 (91) 100 08/12/20 02:30 70 16 113/64 (80) 100 08/12/20 02:16 17 75/53 Mechanical Ventilator 10.0 40 08/12/20 02:15 71 15 110/63 (79) 100 08/12/20 02:00 16 110/63 Mechanical Ventilator 40 08/12/20 02:00 67 16 111/72 (85) 100 08/12/20 01:45 65 17 117/75 (89) 100 08/12/20 01:35 73 17 40 08/12/20 01:30 68 17 124/77 (93) 100 08/12/20 01:15 71 17 131/76 (94) 100 08/12/20 01:00 70 20 114/72 (86) 100 08/12/20 01:00 16 131/76 Mechanical Ventilator 40 08/12/20 00:59 75/53 08/12/20 00:45 68 16 93/65 (74) 100 08/12/20 00:30 66 22 130/70 (90) 98 08/12/20 00:19 75 16 67/48 (54) 100 08/12/20 00:16 73 16 72/50 (57) 100 08/12/20 00:15 74 16 75/53 (60) 100 08/12/20 00:00 40 08/12/20 00:00 74 08/12/20 00:00 98.5 75 16 95/55 (68) 100 08/12/20 00:00 Mechanical Ventilator 08/12/20 00:00 16 75/53 Mechanical Ventilator 40 08/11/20 23:45 76 16 112/67 (82) 100 08/11/20 23:43 79 17 107/65 (79) 100 08/11/20 23:35 78 16 80/49 (59) 100 08/11/20 23:30 77 16 84/53 (63) 100 08/11/20 23:15 77 16 91/57 (68) 100 08/11/20 23:07 73 16 40 08/11/20 23:00 16 91/57 Mechanical Ventilator 40 08/11/20 23:00 75 18 105/69 (81) 99 08/11/20 22:45 75 16 96/64 (75) 100 08/11/20 22:30 77 16 108/71 (83) 98 08/11/20 22:15 78 17 113/75 (88) 99 08/11/20 22:00 82 18 112/67 (82) 100 08/11/20 22:00 16 113/75 Mechanical Ventilator 40 08/11/20 21:29 85 18 40 08/11/20 21:00 82 22 150/86 (107) 100 08/11/20 21:00 18 142/85 Mechanical Ventilator 40 08/11/20 20:30 78 18 132/66 (88) 100 08/11/20 20:00 Mechanical Ventilator 08/11/20 20:00 18 133/74 Mechanical Ventilator 40 08/11/20 20:00 78 08/11/20 20:00 98.8 74 17 116/76 (89) 100 08/11/20 20:00 40 08/11/20 19:00 81 16 113/75 (88) 100 08/11/20 19:00 16 113/75 Mechanical Ventilator 40 08/11/20 18:57 78 18 40 08/11/20 18:45 72 16 170/103 (125) 100 08/11/20 18:30 78 19 130/77 (94) 100 08/11/20 18:15 76 16 99/68 (78) 100 08/11/20 18:00 16 99/68 Mechanical Ventilator 40 08/11/20 18:00 77 16 103/65 (78) 100 08/11/20 17:45 76 16 101/66 (78) 100 08/11/20 17:30 79 26 103/72 (82) 100 08/11/20 17:15 80 21 119/72 (88) 100 08/11/20 17:00 20 119/80 Mechanical Ventilator 40 08/11/20 17:00 80 19 119/80 (93) 100 08/11/20 16:45 78 21 175/101 (125) 100 08/11/20 16:30 80 19 135/89 (104) 100 08/11/20 16:15 81 17 137/84 (101) 100 08/11/20 16:00 79 08/11/20 16:00 98.4 79 17 113/98 (103) 100 08/11/20 16:00 40 08/11/20 16:00 Mechanical Ventilator 08/11/20 16:00 19 137/84 Mechanical Ventilator 40 08/11/20 15:48 87 17 40 08/11/20 15:45 77 17 140/84 (102) 100 08/11/20 15:30 79 17 131/72 (91) 100 08/11/20 15:15 83 19 156/85 (108) 100 08/11/20 15:00 18 165/79 Mechanical Ventilator 40 08/11/20 15:00 78 23 165/79 (107) 99 08/11/20 14:45 73 16 95/59 (71) 100 08/11/20 14:30 73 16 103/62 (76) 100 08/11/20 14:15 73 16 104/67 (79) 100 08/11/20 14:00 19 104/67 Mechanical Ventilator 40 08/11/20 14:00 73 16 122/72 (89) 100 08/11/20 13:45 79 18 125/73 (90) 100 08/11/20 13:30 76 16 110/69 (83) 100 08/11/20 13:15 80 17 108/70 (83) 100 08/11/20 13:00 16 108/70 Mechanical Ventilator 40 08/11/20 13:00 78 16 119/67 (84) 100 08/11/20 12:45 79 18 115/79 (91) 100 08/11/20 12:30 78 20 128/73 (91) 100 08/11/20 12:15 81 20 121/78 (92) 100 08/11/20 12:00 Mechanical Ventilator 08/11/20 12:00 40 08/11/20 12:00 76 08/11/20 12:00 17 119/73 Mechanical Ventilator 40 08/11/20 12:00 98.6 83 17 119/73 (88) 100 08/11/20 11:55 78 18 40 08/11/20 11:45 23 119/73 Mechanical Ventilator 40 08/11/20 11:45 93 41 160/91 (114) 99 08/11/20 11:30 93 21 154/88 (110) 100 08/11/20 11:15 87 20 130/81 (97) 100 Intake and Output 08/11/20 08/12/20 19:00 07:00 Intake Total 1573.75 ml 2462.925 ml Output Total 1375 ml 1265 ml Balance 198.75 ml 1197.925 ml Free Water 160 ml IV Total 1213.75 ml 1882.925 ml Tube Feeding 360 ml 360 ml Other 60 ml Output Urine Total 1375 ml 1265 ml General Appearance: no acute distress HEENT: normocephalic Respiratory: chest wall non-tender, lungs clear Cardiovascular: normal peripheral pulses, normal rate Abdomen: normal bowel sounds Extremities: no cyanosis Laboratory Tests 08/12/20 04:00: White Blood Count 17.5H, Red Blood Count 3.46L, Hemoglobin 9.3L, Hematocrit 31.1L, Mean Corpuscular Volume 90, Mean Corpuscular Hemoglobin 26.9L, Mean Corpuscular Hemoglobin Concent 30.0L, Red Cell Distribution Width 14.5, Platelet Count 323, Mean Platelet Volume 6.2L, Neutrophils (%) (Auto) , Lymphocytes (%) (Auto) , Monocytes (%) (Auto) , Eosinophils (%) (Auto) , Basophils (%) (Auto) , Differential Total Cells Counted 100, Neutrophils % (Manual) 95H, Lymphocytes % (Manual) 2L, Monocytes % (Manual) 3, Eosinophils % (Manual) 0, Basophils % (Manual) 0, Band Neutrophils 0, Platelet Estimate Adequate, Platelet Morphology Normal, Hypochromasia 1+, Sodium Level 140, Potassium Level 3.9, Chloride Level 103, Carbon Dioxide Level 28, Anion Gap 9, Blood Urea Nitrogen 18, Creatinine 0.7, Estimat Glomerular Filtration Rate > 60, Glucose Level 149H, Calcium Level 8.1L, Phosphorus Level 3.0, Magnesium Level 2.2, Total Bilirubin 0.4, Aspartate Amino Transf (AST/SGOT) 31, Alanine Aminotransferase (ALT/SGPT) 40, Alkaline Phosphatase 60, C-Reactive Protein, Quantitative 3.0H, Pro-B-Type Natriuretic Peptide 360H, Total Protein 5.9L, Albumin 2.0L, Globulin 3.9, Albumin/Globulin Ratio 0.5L Current Medications Medications (Trade) Dose Ordered Sig/Armand Route PRN Reason Start Time Stop Time Status Last Admin Dose Admin Acetaminophen (Tylenol) 650 mg Q6H PRN NG Mild Pain (Pain Scale 1-3) 08/08/20 14:00 09/07/20 13:59 08/09/20 20:31 Acetaminophen (Tylenol) 650 mg Q6H PRN NG Temp >100.5 08/08/20 14:00 09/07/20 13:59 Albuterol/ Ipratropium (Albuterol/ Ipratropium) 3 ml Q4H PRN HHN Shortness of Breath 08/12/20 09:00 08/17/20 08:59 Albuterol/ Ipratropium (Albuterol/ Ipratropium) 3 ml Q8HRT HHN 08/12/20 09:00 08/17/20 08:59 08/12/20 10:53 Cefepime HCl 2 gm/ Dextrose 110 ml @ 220 mls/hr EVERY 12 HOURS IV 08/05/20 21:00 08/18/20 23:59 08/12/20 08:59 Chlorhexidine Gluconate (Maddie-Hex 2%) 1 applic DAILY@2000 TOPIC 08/07/20 20:00 11/05/20 19:59 08/11/20 20:52 Dextrose/Sodium Chloride 1,000 ml @ 75 mls/hr [id number] IV 08/06/20 11:00 09/05/20 10:59 08/11/20 20:01 Enoxaparin Sodium (Lovenox) 60 mg EVERY 12 HOURS SUBQ 08/05/20 21:00 11/03/20 20:59 08/12/20 09:10 Famotidine (Pepcid I.v.) 20 mg Q12HR IVP 08/06/20 11:00 09/05/20 10:59 08/12/20 08:59 Fentanyl Citrate 250 ml @ 0 mls/hr Q24H PRN IV . 08/10/20 23:00 08/12/20 22:59 08/12/20 02:16 Gabapentin (Neurontin) 300 mg EVERY 8 HOURS NG 08/08/20 22:00 09/04/20 08:59 08/12/20 05:43 Methylprednisolone Sodium Succinate (Solu-MEDROL) 40 mg EVERY 6 HOURS IVP 08/05/20 12:00 11/03/20 11:59 08/12/20 05:43 Metronidazole 100 ml @ 100 mls/hr Q8HR IVPB 08/09/20 22:00 08/16/20 21:59 08/12/20 05:44 Midazolam HCl 200 ml @ 0 mls/hr Q24H PRN IV To Patient Comfort 08/05/20 15:30 08/12/20 15:29 08/08/20 18:59 Norepinephrine Bitartrate 250 ml @ 0 mls/hr Q24H IV 08/12/20 00:30 08/15/20 00:21 08/12/20 00:59 Polyethylene Glycol (Miralax) 17 gm BEDTIME ORAL 08/12/20 21:00 09/11/20 20:59 Vancomycin HCl 250 ml @ 166.667 mls/hr Q8HR@0400,1200,2000 IVPB 08/08/20 20:00 08/16/20 23:59 08/12/20 04:26 Vancomycin HCl ([facility] pharmacy to dose) 1 ea DAILY PRN MISC Per rx protocol 08/04/20 09:15 09/03/20 09:14 Assessment/Plan Assessment/Plan 1. UTI -On empiric antibiotics -Follow-up UCx negative (08/03) 2. Pneumonia -On broad-spectrum antibiotics - CXR concerning for volume loss; reviewed chest CT - CT chest shows dense RUL and RML consolidation - High suspicion for RBI narrowing ; no obvious endobronchial narrowing noted on bronchoscopy 3. COPD exacerbation -Now intubated 4. Respiratory distress - Continue steroids 5. History of seizures -Risk of aspiration -Monitor for seizure activity 6. Elevated CRP -D-dimer wnl -His outpatient medications include Eliquis (hx of A fib?) - Continue Eliquis 7. Monitor carefully in ICU S/p intubation On Levophed; low dose;n Continue AC mode; will continue weaning FiO2 90->80 ->40% PEEP 5 Micha Schneider MD Aug 12, 2020 11:05
--- NOTE | 2020-08-12 11:36 | NUR ---
NURSE NOTES: Pt seen by by Dr Magdaleno - discussed pt noted today with brief episodes of bradycardia (HR in the 50s for 3-5 sec). No new orders received.
--- NOTE | 2020-08-12 11:57 | Internal Med Progress Note ---
Subjective Date of Service: Aug 12, 2020 Physician Name Pablo Hickman Attending Physician Torres Saul MD Current Medications Medications (Trade) Dose Ordered Sig/Armand Route PRN Reason Start Time Stop Time Status Last Admin Dose Admin Acetaminophen (Tylenol) 650 mg Q6H PRN NG Mild Pain (Pain Scale 1-3) 08/08/20 14:00 09/07/20 13:59 08/09/20 20:31 Acetaminophen (Tylenol) 650 mg Q6H PRN NG Temp >100.5 08/08/20 14:00 09/07/20 13:59 Albuterol/ Ipratropium (Albuterol/ Ipratropium) 3 ml Q4H PRN HHN Shortness of Breath 08/12/20 09:00 08/17/20 08:59 Albuterol/ Ipratropium (Albuterol/ Ipratropium) 3 ml Q8HRT HHN 08/12/20 09:00 08/17/20 08:59 08/12/20 10:53 Cefepime HCl 2 gm/ Dextrose 110 ml @ 220 mls/hr EVERY 12 HOURS IV 08/05/20 21:00 08/18/20 23:59 08/12/20 08:59 Chlorhexidine Gluconate (Maddie-Hex 2%) 1 applic DAILY@2000 TOPIC 08/07/20 20:00 11/05/20 19:59 08/11/20 20:52 Dextrose/Sodium Chloride 1,000 ml @ 75 mls/hr [id number] IV 08/06/20 11:00 09/05/20 10:59 08/11/20 20:01 Docusate Sodium (Colace) 100 mg TWICE A DAY NG 08/12/20 18:00 09/11/20 17:59 UNV Enoxaparin Sodium (Lovenox) 60 mg EVERY 12 HOURS SUBQ 08/05/20 21:00 11/03/20 20:59 08/12/20 09:10 Famotidine (Pepcid I.v.) 20 mg Q12HR IVP 08/06/20 11:00 09/05/20 10:59 08/12/20 08:59 Fentanyl Citrate 250 ml @ 0 mls/hr Q24H PRN IV . 08/10/20 23:00 08/12/20 22:59 08/12/20 02:16 Gabapentin (Neurontin) 300 mg EVERY 8 HOURS NG 08/08/20 22:00 09/04/20 08:59 08/12/20 05:43 Methylprednisolone Sodium Succinate (Solu-MEDROL) 40 mg EVERY 6 HOURS IVP 08/05/20 12:00 11/03/20 11:59 08/12/20 05:43 Metronidazole 100 ml @ 100 mls/hr Q8HR IVPB 08/09/20 22:00 08/16/20 21:59 08/12/20 05:44 Midazolam HCl 200 ml @ 0 mls/hr Q24H PRN IV To Patient Comfort 08/05/20 15:30 08/12/20 15:29 08/08/20 18:59 Norepinephrine Bitartrate 250 ml @ 0 mls/hr Q24H IV 08/12/20 00:30 08/15/20 00:21 08/12/20 00:59 Polyethylene Glycol (Miralax) 17 gm BEDTIME ORAL 08/12/20 21:00 09/11/20 20:59 Vancomycin HCl 250 ml @ 166.667 mls/hr Q8HR@0400,1200,2000 IVPB 08/08/20 20:00 08/16/20 23:59 08/12/20 04:26 Vancomycin HCl ([facility] pharmacy to dose) 1 ea DAILY PRN MISC Per rx protocol 08/04/20 09:15 09/03/20 09:14 Allergies: Coded Allergies: PENICILLINS (Verified Allergy, Unknown, 03/10/20) PHENYTOIN (Verified Allergy, Unknown, 03/10/20) ROS Limited/Unobtainable: Yes Subjective 79 YO M admitted with respiratory distress. Now pneumonia. Cover for Int Med- Dr Saul. ICU. Intubated and sedated Objective Last Vital Signs Date Time Temp Pulse Resp B/P (MAP) Pulse Ox O2 Delivery O2 Flow Rate FiO2 08/12/20 11:00 63 16 122/68 (86) 100 08/12/20 10:55 Mechanical Ventilator 40 08/12/20 08:00 98.3 08/12/20 02:16 10.0 Laboratory Tests Test 08/12/20 04:00 White Blood Count 17.5 K/UL (4.8-10.8) H Red Blood Count 3.46 M/UL (4.70-6.10) L Hemoglobin 9.3 G/DL (14.2-18.0) L Hematocrit 31.1 % (42.0-52.0) L Mean Corpuscular Volume 90 FL (80-99) Mean Corpuscular Hemoglobin 26.9 PG (27.0-31.0) L Mean Corpuscular Hemoglobin Concent 30.0 G/DL (32.0-36.0) L Red Cell Distribution Width 14.5 % (11.6-14.8) Platelet Count 323 K/UL (150-450) Mean Platelet Volume 6.2 FL (6.5-10.1) L Neutrophils (%) (Auto) % (45.0-75.0) Lymphocytes (%) (Auto) % (20.0-45.0) Monocytes (%) (Auto) % (1.0-10.0) Eosinophils (%) (Auto) % (0.0-3.0) Basophils (%) (Auto) % (0.0-2.0) Differential Total Cells Counted 100 Neutrophils % (Manual) 95 % (45-75) H Lymphocytes % (Manual) 2 % (20-45) L Monocytes % (Manual) 3 % (1-10) Eosinophils % (Manual) 0 % (0-3) Basophils % (Manual) 0 % (0-2) Band Neutrophils 0 % (0-8) Platelet Estimate Adequate Platelet Morphology Normal Hypochromasia 1+ Sodium Level 140 MMOL/L (136-145) Potassium Level 3.9 MMOL/L (3.5-5.1) Chloride Level 103 MMOL/L (98-107) Carbon Dioxide Level 28 MMOL/L (21-32) Anion Gap 9 mmol/L (5-15) Blood Urea Nitrogen 18 mg/dL (7-18) Creatinine 0.7 MG/DL (0.55-1.30) Estimat Glomerular Filtration Rate > 60 mL/min (>60) Glucose Level 149 MG/DL (74-106) H Calcium Level 8.1 MG/DL (8.5-10.1) L Phosphorus Level 3.0 MG/DL (2.5-4.9) Magnesium Level 2.2 MG/DL (1.8-2.4) Total Bilirubin 0.4 MG/DL (0.2-1.0) Aspartate Amino Transf (AST/SGOT) 31 U/L (15-37) Alanine Aminotransferase (ALT/SGPT) 40 U/L (12-78) Alkaline Phosphatase 60 U/L (46-116) C-Reactive Protein, Quantitative 3.0 mg/dL (0.00-0.90) H Pro-B-Type Natriuretic Peptide 360 pg/mL (0-125) H Total Protein 5.9 G/DL (6.4-8.2) L Albumin 2.0 G/DL (3.4-5.0) L Globulin 3.9 g/dL Albumin/Globulin Ratio 0.5 (1.0-2.7) L Intake and Output 08/11/20 08/12/20 19:00 07:00 Intake Total 1573.75 ml 2462.925 ml Output Total 1375 ml 1265 ml Balance 198.75 ml 1197.925 ml Free Water 160 ml IV Total 1213.75 ml 1882.925 ml Tube Feeding 360 ml 360 ml Other 60 ml Output Urine Total 1375 ml 1265 ml Objective PHYSICAL EXAMINATION: GENERAL: The patient is well-developed, well-nourished male, in moderate respiratory distress. HEENT: Eyes, pupils are equal and responsive to light and accommodation. Extraocular movements are intact. NECK: Supple. No lymphadenopathy. CHEST: Mech vent; Lungs are clear to auscultation bilaterally without wheezes or rales. CARDIOVASCULAR: Regular rhythm and rate. S1-S2 are normal without murmurs, rubs, or gallops. ABDOMEN: Soft, nontender, and nondistended. Positive bowel sounds. No evidence of hepatosplenomegaly. Currently, no rebound or guarding noted. EXTREMITIES: Negative for clubbing, cyanosis, or edema. RECTAL/GENITAL: Not performed. NEUROLOGIC: Cranial nerves II through XII are grossly intact without focal deficits. Motor strength is 5/5 bilaterally. Deep tendon reflexes are 2+ plantar. Assessment/Plan Assessment/Plan ASSESSMENT: This is an 79-year-old male with. 1. Respiratory failure-intubated 08/05/20; mech vent 2. Right-sided pneumonia. 3. Hypertension. 4. Congestive heart failure. 5. Chronic obstructive pulmonary disease. 6. Anemia. 7. Cerebrovascular disease, status post cerebrovascular accident. 8. Peripheral vascular disease. 9. Gastroesophageal reflux disease. 10. Major depression. 11. Seizure disorder. 12. History of COVID-19 positive in February 2020. 13. Benign prostatic hypertrophy. TREATMENT: 1. Respiratory failure/right-sided pneumonia pulmonary consultation= Dr. Micha Schneider. ABX= vancomycin, flagyl and cefepime. Infectious Disease= Dr. Urrutia. Follow recommendations of Infectious Disease and Pulmonary. 2. Hypertension. The patient is currently hypotensive. 3. Congestive heart failure. 4. Chronic obstructive pulmonary disease. Continue DuoNeb as above. 5. Anemia. 6. Cerebrovascular disease. 7. Peripheral vascular disease. 8. Gastroesophageal reflux disease. Continue famotidine as above. 9. Major depression. Seizure disorder. 10. COVID-19 positive, history in February 2020. 11. Benign prostatic hypertrophy. Continue Flomax as above. Pablo Hickman MD Aug 12, 2020 11:57
--- NOTE | 2020-08-12 12:00 | NUR ---
NURSE NOTES: Pt repositioned. Afebrile. No distress noted.
--- NOTE | 2020-08-12 12:08 | Nephrology Progress Note ---
Assessment/Plan Problem List: (1) Oliguria (2) Electrolyte imbalance (3) Pneumonia (4) Respiratory failure with hypoxia (5) Pneumonia due to COVID-19 virus (6) Seizure disorder (7) Anemia Assessment Sepsis, respiratory failure Pneumonia and possible aspiration. Questionable COVID-19 infection UTI Abnormal electrolytes Questionable CHF Anemia Plan August 12: Intubated on ventilator. FiO2 40% unchanged. Full code. Labs reviewed. Renal parameters stable. Continue per consultants. August 11: Intubated on ventilator. O2 40%. Full code. Medication list reviewed. Labs reviewed. Stable from renal standpoint of view. Continue per consultants. August 10: Status quo. Intubated on ventilator. FiO2 remains 40%. Renal parameters stable. Continue per current management. Potassium and phosphorus supplement given August 09: Full code. Intubated on ventilator. FiO2 40%. Labs reviewed. Stable from renal standpoint of view. August 08: Labs reviewed. Renal parameters stable. Abnormal electrolytes addressed. Remains full code. FiO2 50%. Continue per consultants. Discussed with RN. August 07: Labs reviewed. K Phos IV given. Patient intubated. Full code. FiO2 60%. Medication list reviewed. Continue per consultants. Previously: Optimize pulmonary status Optimize cardiac status Monitor renal parameters, urine output, electrolytes Change IV to half-normal saline Anemia mansfield Insert NG tube and start feeding Per orders Subjective ROS Limited/Unobtainable: Yes Objective Objective Last 24 Hour Vital Signs Date Time Temp Pulse Resp B/P (MAP) Pulse Ox O2 Delivery O2 Flow Rate FiO2 08/12/20 11:00 63 16 122/68 (86) 100 08/12/20 10:55 80 16 99 Mechanical Ventilator 40 82 16 08/12/20 10:00 78 20 137/108 (118) 84 08/12/20 09:00 60 16 111/61 (78) 100 08/12/20 08:00 98.3 60 16 105/64 (78) 100 08/12/20 08:00 64 08/12/20 08:00 40 08/12/20 08:00 Mechanical Ventilator 08/12/20 07:30 69 20 125/73 (90) 99 08/12/20 07:25 76 18 40 08/12/20 07:15 63 16 101/66 (78) 100 08/12/20 07:07 58 16 101/62 (75) 100 08/12/20 07:00 66 16 84/59 (67) 100 08/12/20 07:00 22 101/62 Mechanical Ventilator 40 08/12/20 06:45 66 16 92/59 (70) 100 08/12/20 06:30 65 21 08/12/20 06:30 67 16 101/62 (75) 100 08/12/20 06:15 66 2 108/63 (78) 100 08/12/20 06:00 22 128/81 Mechanical Ventilator 40 08/12/20 06:00 78 23 128/81 (97) 100 08/12/20 05:21 82 19 40 08/12/20 05:00 80 25 174/119 (137) 99 08/12/20 05:00 24 100/67 Mechanical Ventilator 40 08/12/20 04:45 75 21 117/78 (91) 100 08/12/20 04:30 73 17 127/76 (93) 100 08/12/20 04:15 73 27 134/74 (94) 100 08/12/20 04:00 74 08/12/20 04:00 27 125/75 Mechanical Ventilator 40 08/12/20 04:00 98.0 74 19 125/75 (92) 100 08/12/20 04:00 40 08/12/20 04:00 Mechanical Ventilator 08/12/20 03:45 77 17 112/70 (84) 100 08/12/20 03:41 75 16 40 08/12/20 03:30 90 25 144/82 (102) 100 08/12/20 03:15 75 22 150/93 (112) 98 08/12/20 03:00 70 19 132/74 (93) 100 08/12/20 03:00 22 132/74 Mechanical Ventilator 40 08/12/20 02:45 73 18 121/76 (91) 100 08/12/20 02:30 70 16 113/64 (80) 100 08/12/20 02:16 17 75/53 Mechanical Ventilator 10.0 40 08/12/20 02:15 71 15 110/63 (79) 100 08/12/20 02:00 16 110/63 Mechanical Ventilator 40 08/12/20 02:00 67 16 111/72 (85) 100 08/12/20 01:45 65 17 117/75 (89) 100 08/12/20 01:35 73 17 40 08/12/20 01:30 68 17 124/77 (93) 100 08/12/20 01:15 71 17 131/76 (94) 100 08/12/20 01:00 70 20 114/72 (86) 100 08/12/20 01:00 16 131/76 Mechanical Ventilator 40 08/12/20 00:59 75/53 08/12/20 00:45 68 16 93/65 (74) 100 08/12/20 00:30 66 22 130/70 (90) 98 08/12/20 00:19 75 16 67/48 (54) 100 08/12/20 00:16 73 16 72/50 (57) 100 08/12/20 00:15 74 16 75/53 (60) 100 08/12/20 00:00 40 08/12/20 00:00 74 08/12/20 00:00 98.5 75 16 95/55 (68) 100 08/12/20 00:00 Mechanical Ventilator 08/12/20 00:00 16 75/53 Mechanical Ventilator 40 08/11/20 23:45 76 16 112/67 (82) 100 08/11/20 23:43 79 17 107/65 (79) 100 08/11/20 23:35 78 16 80/49 (59) 100 08/11/20 23:30 77 16 84/53 (63) 100 08/11/20 23:15 77 16 91/57 (68) 100 08/11/20 23:07 73 16 40 08/11/20 23:00 16 91/57 Mechanical Ventilator 40 08/11/20 23:00 75 18 105/69 (81) 99 08/11/20 22:45 75 16 96/64 (75) 100 08/11/20 22:30 77 16 108/71 (83) 98 08/11/20 22:15 78 17 113/75 (88) 99 08/11/20 22:00 82 18 112/67 (82) 100 08/11/20 22:00 16 113/75 Mechanical Ventilator 40 08/11/20 21:29 85 18 40 08/11/20 21:00 82 22 150/86 (107) 100 08/11/20 21:00 18 142/85 Mechanical Ventilator 40 08/11/20 20:30 78 18 132/66 (88) 100 08/11/20 20:00 Mechanical Ventilator 08/11/20 20:00 18 133/74 Mechanical Ventilator 40 08/11/20 20:00 78 08/11/20 20:00 98.8 74 17 116/76 (89) 100 08/11/20 20:00 40 08/11/20 19:00 81 16 113/75 (88) 100 08/11/20 19:00 16 113/75 Mechanical Ventilator 40 08/11/20 18:57 78 18 40 08/11/20 18:45 72 16 170/103 (125) 100 08/11/20 18:30 78 19 130/77 (94) 100 08/11/20 18:15 76 16 99/68 (78) 100 08/11/20 18:00 16 99/68 Mechanical Ventilator 40 08/11/20 18:00 77 16 103/65 (78) 100 08/11/20 17:45 76 16 101/66 (78) 100 08/11/20 17:30 79 26 103/72 (82) 100 08/11/20 17:15 80 21 119/72 (88) 100 08/11/20 17:00 20 119/80 Mechanical Ventilator 40 08/11/20 17:00 80 19 119/80 (93) 100 08/11/20 16:45 78 21 175/101 (125) 100 08/11/20 16:30 80 19 135/89 (104) 100 08/11/20 16:15 81 17 137/84 (101) 100 08/11/20 16:00 79 08/11/20 16:00 98.4 79 17 113/98 (103) 100 08/11/20 16:00 40 08/11/20 16:00 Mechanical Ventilator 08/11/20 16:00 19 137/84 Mechanical Ventilator 40 08/11/20 15:48 87 17 40 08/11/20 15:45 77 17 140/84 (102) 100 08/11/20 15:30 79 17 131/72 (91) 100 08/11/20 15:15 83 19 156/85 (108) 100 08/11/20 15:00 18 165/79 Mechanical Ventilator 40 08/11/20 15:00 78 23 165/79 (107) 99 08/11/20 14:45 73 16 95/59 (71) 100 08/11/20 14:30 73 16 103/62 (76) 100 08/11/20 14:15 73 16 104/67 (79) 100 08/11/20 14:00 19 104/67 Mechanical Ventilator 40 08/11/20 14:00 73 16 122/72 (89) 100 08/11/20 13:45 79 18 125/73 (90) 100 08/11/20 13:30 76 16 110/69 (83) 100 08/11/20 13:15 80 17 108/70 (83) 100 08/11/20 13:00 16 108/70 Mechanical Ventilator 40 08/11/20 13:00 78 16 119/67 (84) 100 08/11/20 12:45 79 18 115/79 (91) 100 08/11/20 12:30 78 20 128/73 (91) 100 08/11/20 12:15 81 20 121/78 (92) 100 Intake and Output 08/11/20 08/12/20 19:00 07:00 Intake Total 1573.75 ml 2462.925 ml Output Total 1375 ml 1265 ml Balance 198.75 ml 1197.925 ml Free Water 160 ml IV Total 1213.75 ml 1882.925 ml Tube Feeding 360 ml 360 ml Other 60 ml Output Urine Total 1375 ml 1265 ml Current Medications Medications (Trade) Dose Ordered Sig/Armand Route PRN Reason Start Time Stop Time Status Last Admin Dose Admin Acetaminophen (Tylenol) 650 mg Q6H PRN NG Mild Pain (Pain Scale 1-3) 08/08/20 14:00 09/07/20 13:59 08/09/20 20:31 Acetaminophen (Tylenol) 650 mg Q6H PRN NG Temp >100.5 08/08/20 14:00 09/07/20 13:59 Albuterol/ Ipratropium (Albuterol/ Ipratropium) 3 ml Q4H PRN HHN Shortness of Breath 08/12/20 09:00 08/17/20 08:59 Albuterol/ Ipratropium (Albuterol/ Ipratropium) 3 ml Q8HRT HHN 08/12/20 09:00 08/17/20 08:59 08/12/20 10:53 Cefepime HCl 2 gm/ Dextrose 110 ml @ 220 mls/hr EVERY 12 HOURS IV 08/05/20 21:00 08/18/20 23:59 08/12/20 08:59 Chlorhexidine Gluconate (Maddie-Hex 2%) 1 applic DAILY@2000 TOPIC 08/07/20 20:00 11/05/20 19:59 08/11/20 20:52 Dextrose/Sodium Chloride 1,000 ml @ 75 mls/hr [id number] IV 08/06/20 11:00 09/05/20 10:59 08/11/20 20:01 Docusate Sodium (Colace) 100 mg TWICE A DAY NG 08/12/20 18:00 09/11/20 17:59 Enoxaparin Sodium (Lovenox) 60 mg EVERY 12 HOURS SUBQ 08/05/20 21:00 11/03/20 20:59 08/12/20 09:10 Famotidine (Pepcid I.v.) 20 mg Q12HR IVP 08/06/20 11:00 09/05/20 10:59 08/12/20 08:59 Fentanyl Citrate 250 ml @ 0 mls/hr Q24H PRN IV . 08/10/20 23:00 08/13/20 04:00 08/12/20 02:16 Fentanyl Citrate 250 ml @ 0 mls/hr Q24H PRN IV . 08/13/20 04:00 08/15/20 03:59 Gabapentin (Neurontin) 300 mg EVERY 8 HOURS NG 08/08/20 22:00 09/04/20 08:59 08/12/20 05:43 Methylprednisolone Sodium Succinate (Solu-MEDROL) 40 mg EVERY 6 HOURS IVP 08/05/20 12:00 11/03/20 11:59 08/12/20 05:43 Metronidazole 100 ml @ 100 mls/hr Q8HR IVPB 08/09/20 22:00 08/16/20 21:59 08/12/20 05:44 Midazolam HCl 200 ml @ 0 mls/hr Q24H PRN IV To Patient Comfort 08/05/20 15:30 08/12/20 15:29 08/08/20 18:59 Norepinephrine Bitartrate 250 ml @ 0 mls/hr Q24H IV 08/12/20 00:30 08/15/20 00:21 08/12/20 00:59 Polyethylene Glycol (Miralax) 17 gm BEDTIME ORAL 08/12/20 21:00 09/11/20 20:59 Vancomycin HCl 250 ml @ 166.667 mls/hr Q8HR@0400,1200,2000 IVPB 08/08/20 20:00 08/16/20 23:59 08/12/20 04:26 Vancomycin HCl ([facility] pharmacy to dose) 1 ea DAILY PRN MISC Per rx protocol 08/04/20 09:15 09/03/20 09:14 Laboratory Tests 08/12/20 04:00: White Blood Count 17.5H, Red Blood Count 3.46L, Hemoglobin 9.3L, Hematocrit 31.1L, Mean Corpuscular Volume 90, Mean Corpuscular Hemoglobin 26.9L, Mean Corpuscular Hemoglobin Concent 30.0L, Red Cell Distribution Width 14.5, Platelet Count 323, Mean Platelet Volume 6.2L, Neutrophils (%) (Auto) , Lymphocytes (%) (Auto) , Monocytes (%) (Auto) , Eosinophils (%) (Auto) , Basophils (%) (Auto) , Differential Total Cells Counted 100, Neutrophils % (Manual) 95H, Lymphocytes % (Manual) 2L, Monocytes % (Manual) 3, Eosinophils % (Manual) 0, Basophils % (Manual) 0, Band Neutrophils 0, Platelet Estimate Adequate, Platelet Morphology Normal, Hypochromasia 1+, Sodium Level 140, Potassium Level 3.9, Chloride Level 103, Carbon Dioxide Level 28, Anion Gap 9, Blood Urea Nitrogen 18, Creatinine 0.7, Estimat Glomerular Filtration Rate > 60, Glucose Level 149H, Calcium Level 8.1L, Phosphorus Level 3.0, Magnesium Level 2.2, Total Bilirubin 0.4, Aspartate Amino Transf (AST/SGOT) 31, Alanine Aminotransferase (ALT/SGPT) 40, Alkaline Phosphatase 60, C-Reactive Protein, Quantitative 3.0H, Pro-B-Type Natriuretic Peptide 360H, Total Protein 5.9L, Albumin 2.0L, Globulin 3.9, Albumin/Globulin Ratio 0.5L Height (Feet): 6 Height (Inches): 1.00 Weight (Pounds): 190 General Appearance: no apparent distress Cardiovascular: normal rate Respiratory/Chest: decreased breath sounds Abdomen: distended Aashish Burgess MD Aug 12, 2020 12:08
--- NOTE | 2020-08-12 12:25 | Cardiac Electrophysiology PN ---
Assessment/Plan Assessment/Plan 1. Respiratory failure. On the Vent and IV antibiotic. On 40% Fio2 Echocardiogram showed EF 50% 2. Questionable congestive heart failure. EF normal and BNP is only 39. 3. Septic shock on Levo 4 mcg and ivf 75cc/hr 4. History of COVID pneumonia, status post vaccination for COVID. Currently on IV antibiotic and prednisone. Now off isolation 5. Questionable history of atrial fibrillation versus DVT. The patient is on Eliquis 2.5 mg b.i.d. Currently in SR 6. Full Code Subjective Subjective In ICU on 40% Fio2 and PEEP 5. OGT in place In SR. Off restraints on fentanyl drip On Levo 4 Mcg Objective Last 24 Hour Vital Signs Date Time Temp Pulse Resp B/P (MAP) Pulse Ox O2 Delivery O2 Flow Rate FiO2 08/12/20 12:00 Mechanical Ventilator 08/12/20 11:00 63 16 122/68 (86) 100 08/12/20 10:55 80 16 99 Mechanical Ventilator 40 82 16 08/12/20 10:00 78 20 137/108 (118) 84 08/12/20 09:00 60 16 111/61 (78) 100 08/12/20 08:00 98.3 60 16 105/64 (78) 100 08/12/20 08:00 64 08/12/20 08:00 40 08/12/20 08:00 Mechanical Ventilator 08/12/20 07:30 69 20 125/73 (90) 99 08/12/20 07:25 76 18 40 08/12/20 07:15 63 16 101/66 (78) 100 08/12/20 07:07 58 16 101/62 (75) 100 08/12/20 07:00 66 16 84/59 (67) 100 08/12/20 07:00 22 101/62 Mechanical Ventilator 40 08/12/20 06:45 66 16 92/59 (70) 100 08/12/20 06:30 65 21 08/12/20 06:30 67 16 101/62 (75) 100 08/12/20 06:15 66 2 108/63 (78) 100 08/12/20 06:00 22 128/81 Mechanical Ventilator 40 08/12/20 06:00 78 23 128/81 (97) 100 08/12/20 05:21 82 19 40 08/12/20 05:00 80 25 174/119 (137) 99 08/12/20 05:00 24 100/67 Mechanical Ventilator 40 08/12/20 04:45 75 21 117/78 (91) 100 08/12/20 04:30 73 17 127/76 (93) 100 08/12/20 04:15 73 27 134/74 (94) 100 08/12/20 04:00 74 08/12/20 04:00 27 125/75 Mechanical Ventilator 40 08/12/20 04:00 98.0 74 19 125/75 (92) 100 08/12/20 04:00 40 08/12/20 04:00 Mechanical Ventilator 08/12/20 03:45 77 17 112/70 (84) 100 08/12/20 03:41 75 16 40 08/12/20 03:30 90 25 144/82 (102) 100 08/12/20 03:15 75 22 150/93 (112) 98 08/12/20 03:00 70 19 132/74 (93) 100 08/12/20 03:00 22 132/74 Mechanical Ventilator 40 08/12/20 02:45 73 18 121/76 (91) 100 08/12/20 02:30 70 16 113/64 (80) 100 08/12/20 02:16 17 75/53 Mechanical Ventilator 10.0 40 08/12/20 02:15 71 15 110/63 (79) 100 08/12/20 02:00 16 110/63 Mechanical Ventilator 40 08/12/20 02:00 67 16 111/72 (85) 100 08/12/20 01:45 65 17 117/75 (89) 100 08/12/20 01:35 73 17 40 08/12/20 01:30 68 17 124/77 (93) 100 08/12/20 01:15 71 17 131/76 (94) 100 08/12/20 01:00 70 20 114/72 (86) 100 08/12/20 01:00 16 131/76 Mechanical Ventilator 40 08/12/20 00:59 75/53 08/12/20 00:45 68 16 93/65 (74) 100 08/12/20 00:30 66 22 130/70 (90) 98 08/12/20 00:19 75 16 67/48 (54) 100 08/12/20 00:16 73 16 72/50 (57) 100 08/12/20 00:15 74 16 75/53 (60) 100 08/12/20 00:00 40 08/12/20 00:00 74 08/12/20 00:00 98.5 75 16 95/55 (68) 100 08/12/20 00:00 Mechanical Ventilator 08/12/20 00:00 16 75/53 Mechanical Ventilator 40 08/11/20 23:45 76 16 112/67 (82) 100 08/11/20 23:43 79 17 107/65 (79) 100 08/11/20 23:35 78 16 80/49 (59) 100 08/11/20 23:30 77 16 84/53 (63) 100 08/11/20 23:15 77 16 91/57 (68) 100 08/11/20 23:07 73 16 40 08/11/20 23:00 16 91/57 Mechanical Ventilator 40 08/11/20 23:00 75 18 105/69 (81) 99 08/11/20 22:45 75 16 96/64 (75) 100 08/11/20 22:30 77 16 108/71 (83) 98 08/11/20 22:15 78 17 113/75 (88) 99 08/11/20 22:00 82 18 112/67 (82) 100 08/11/20 22:00 16 113/75 Mechanical Ventilator 40 08/11/20 21:29 85 18 40 08/11/20 21:00 82 22 150/86 (107) 100 08/11/20 21:00 18 142/85 Mechanical Ventilator 40 08/11/20 20:30 78 18 132/66 (88) 100 08/11/20 20:00 Mechanical Ventilator 08/11/20 20:00 18 133/74 Mechanical Ventilator 40 08/11/20 20:00 78 08/11/20 20:00 98.8 74 17 116/76 (89) 100 08/11/20 20:00 40 08/11/20 19:00 81 16 113/75 (88) 100 08/11/20 19:00 16 113/75 Mechanical Ventilator 40 08/11/20 18:57 78 18 40 08/11/20 18:45 72 16 170/103 (125) 100 08/11/20 18:30 78 19 130/77 (94) 100 08/11/20 18:15 76 16 99/68 (78) 100 08/11/20 18:00 16 99/68 Mechanical Ventilator 40 08/11/20 18:00 77 16 103/65 (78) 100 08/11/20 17:45 76 16 101/66 (78) 100 08/11/20 17:30 79 26 103/72 (82) 100 08/11/20 17:15 80 21 119/72 (88) 100 08/11/20 17:00 20 119/80 Mechanical Ventilator 40 08/11/20 17:00 80 19 119/80 (93) 100 08/11/20 16:45 78 21 175/101 (125) 100 08/11/20 16:30 80 19 135/89 (104) 100 08/11/20 16:15 81 17 137/84 (101) 100 08/11/20 16:00 79 08/11/20 16:00 98.4 79 17 113/98 (103) 100 08/11/20 16:00 40 08/11/20 16:00 Mechanical Ventilator 08/11/20 16:00 19 137/84 Mechanical Ventilator 40 08/11/20 15:48 87 17 40 08/11/20 15:45 77 17 140/84 (102) 100 08/11/20 15:30 79 17 131/72 (91) 100 08/11/20 15:15 83 19 156/85 (108) 100 08/11/20 15:00 18 165/79 Mechanical Ventilator 40 08/11/20 15:00 78 23 165/79 (107) 99 08/11/20 14:45 73 16 95/59 (71) 100 08/11/20 14:30 73 16 103/62 (76) 100 08/11/20 14:15 73 16 104/67 (79) 100 08/11/20 14:00 19 104/67 Mechanical Ventilator 40 08/11/20 14:00 73 16 122/72 (89) 100 08/11/20 13:45 79 18 125/73 (90) 100 08/11/20 13:30 76 16 110/69 (83) 100 08/11/20 13:15 80 17 108/70 (83) 100 08/11/20 13:00 16 108/70 Mechanical Ventilator 40 08/11/20 13:00 78 16 119/67 (84) 100 08/11/20 12:45 79 18 115/79 (91) 100 08/11/20 12:30 78 20 128/73 (91) 100 Intake and Output 08/11/20 08/12/20 19:00 07:00 Intake Total 1573.75 ml 2462.925 ml Output Total 1375 ml 1265 ml Balance 198.75 ml 1197.925 ml Free Water 160 ml IV Total 1213.75 ml 1882.925 ml Tube Feeding 360 ml 360 ml Other 60 ml Output Urine Total 1375 ml 1265 ml Laboratory Tests Test 08/12/20 04:00 White Blood Count 17.5 K/UL (4.8-10.8) H Red Blood Count 3.46 M/UL (4.70-6.10) L Hemoglobin 9.3 G/DL (14.2-18.0) L Hematocrit 31.1 % (42.0-52.0) L Mean Corpuscular Volume 90 FL (80-99) Mean Corpuscular Hemoglobin 26.9 PG (27.0-31.0) L Mean Corpuscular Hemoglobin Concent 30.0 G/DL (32.0-36.0) L Red Cell Distribution Width 14.5 % (11.6-14.8) Platelet Count 323 K/UL (150-450) Mean Platelet Volume 6.2 FL (6.5-10.1) L Neutrophils (%) (Auto) % (45.0-75.0) Lymphocytes (%) (Auto) % (20.0-45.0) Monocytes (%) (Auto) % (1.0-10.0) Eosinophils (%) (Auto) % (0.0-3.0) Basophils (%) (Auto) % (0.0-2.0) Differential Total Cells Counted 100 Neutrophils % (Manual) 95 % (45-75) H Lymphocytes % (Manual) 2 % (20-45) L Monocytes % (Manual) 3 % (1-10) Eosinophils % (Manual) 0 % (0-3) Basophils % (Manual) 0 % (0-2) Band Neutrophils 0 % (0-8) Platelet Estimate Adequate Platelet Morphology Normal Hypochromasia 1+ Sodium Level 140 MMOL/L (136-145) Potassium Level 3.9 MMOL/L (3.5-5.1) Chloride Level 103 MMOL/L (98-107) Carbon Dioxide Level 28 MMOL/L (21-32) Anion Gap 9 mmol/L (5-15) Blood Urea Nitrogen 18 mg/dL (7-18) Creatinine 0.7 MG/DL (0.55-1.30) Estimat Glomerular Filtration Rate > 60 mL/min (>60) Glucose Level 149 MG/DL (74-106) H Calcium Level 8.1 MG/DL (8.5-10.1) L Phosphorus Level 3.0 MG/DL (2.5-4.9) Magnesium Level 2.2 MG/DL (1.8-2.4) Total Bilirubin 0.4 MG/DL (0.2-1.0) Aspartate Amino Transf (AST/SGOT) 31 U/L (15-37) Alanine Aminotransferase (ALT/SGPT) 40 U/L (12-78) Alkaline Phosphatase 60 U/L (46-116) C-Reactive Protein, Quantitative 3.0 mg/dL (0.00-0.90) H Pro-B-Type Natriuretic Peptide 360 pg/mL (0-125) H Total Protein 5.9 G/DL (6.4-8.2) L Albumin 2.0 G/DL (3.4-5.0) L Globulin 3.9 g/dL Albumin/Globulin Ratio 0.5 (1.0-2.7) L Objective HEAD AND NECK: Orally intubated LUNGS: Coarse rhonchi. CARDIOVASCULAR: Regular S1 and S2 with no gallop. ABDOMEN: Soft. EXTREMITIES: 1 plus pitting edema. Devyn Magdaleno MD Aug 12, 2020 12:25
[2020-08-12] MEDS: D5 1/2NS 1,000 ML IV SCH (13:00)
--- NOTE | 2020-08-12 13:21 | Surgery Progress Note ---
Surgery Progress Note Subjective Additional Comments ill appearing on support weaning Objective Last 24 Hour Vital Signs Date Time Temp Pulse Resp B/P (MAP) Pulse Ox O2 Delivery O2 Flow Rate FiO2 08/12/20 13:00 74 22 116/68 (84) 100 08/12/20 12:00 Mechanical Ventilator 08/12/20 12:00 40 08/12/20 12:00 66 08/12/20 12:00 98.6 68 13 121/64 (83) 100 08/12/20 11:00 63 16 122/68 (86) 100 08/12/20 10:55 80 16 99 Mechanical Ventilator 40 82 16 08/12/20 10:00 78 20 137/108 (118) 84 08/12/20 09:00 60 16 111/61 (78) 100 08/12/20 08:00 98.3 60 16 105/64 (78) 100 08/12/20 08:00 64 08/12/20 08:00 40 08/12/20 08:00 Mechanical Ventilator 08/12/20 07:30 69 20 125/73 (90) 99 08/12/20 07:25 76 18 40 08/12/20 07:15 63 16 101/66 (78) 100 08/12/20 07:07 58 16 101/62 (75) 100 08/12/20 07:00 66 16 84/59 (67) 100 08/12/20 07:00 22 101/62 Mechanical Ventilator 40 08/12/20 06:45 66 16 92/59 (70) 100 08/12/20 06:30 65 21 08/12/20 06:30 67 16 101/62 (75) 100 08/12/20 06:15 66 2 108/63 (78) 100 08/12/20 06:00 22 128/81 Mechanical Ventilator 40 08/12/20 06:00 78 23 128/81 (97) 100 08/12/20 05:21 82 19 40 08/12/20 05:00 80 25 174/119 (137) 99 08/12/20 05:00 24 100/67 Mechanical Ventilator 40 08/12/20 04:45 75 21 117/78 (91) 100 08/12/20 04:30 73 17 127/76 (93) 100 08/12/20 04:15 73 27 134/74 (94) 100 08/12/20 04:00 74 08/12/20 04:00 27 125/75 Mechanical Ventilator 40 08/12/20 04:00 98.0 74 19 125/75 (92) 100 08/12/20 04:00 40 08/12/20 04:00 Mechanical Ventilator 08/12/20 03:45 77 17 112/70 (84) 100 08/12/20 03:41 75 16 40 08/12/20 03:30 90 25 144/82 (102) 100 08/12/20 03:15 75 22 150/93 (112) 98 08/12/20 03:00 70 19 132/74 (93) 100 08/12/20 03:00 22 132/74 Mechanical Ventilator 40 08/12/20 02:45 73 18 121/76 (91) 100 08/12/20 02:30 70 16 113/64 (80) 100 08/12/20 02:16 17 75/53 Mechanical Ventilator 10.0 40 08/12/20 02:15 71 15 110/63 (79) 100 08/12/20 02:00 16 110/63 Mechanical Ventilator 40 08/12/20 02:00 67 16 111/72 (85) 100 08/12/20 01:45 65 17 117/75 (89) 100 08/12/20 01:35 73 17 40 08/12/20 01:30 68 17 124/77 (93) 100 08/12/20 01:15 71 17 131/76 (94) 100 08/12/20 01:00 70 20 114/72 (86) 100 08/12/20 01:00 16 131/76 Mechanical Ventilator 40 08/12/20 00:59 75/53 08/12/20 00:45 68 16 93/65 (74) 100 08/12/20 00:30 66 22 130/70 (90) 98 08/12/20 00:19 75 16 67/48 (54) 100 08/12/20 00:16 73 16 72/50 (57) 100 08/12/20 00:15 74 16 75/53 (60) 100 08/12/20 00:00 40 08/12/20 00:00 74 08/12/20 00:00 98.5 75 16 95/55 (68) 100 08/12/20 00:00 Mechanical Ventilator 08/12/20 00:00 16 75/53 Mechanical Ventilator 40 08/11/20 23:45 76 16 112/67 (82) 100 08/11/20 23:43 79 17 107/65 (79) 100 08/11/20 23:35 78 16 80/49 (59) 100 08/11/20 23:30 77 16 84/53 (63) 100 08/11/20 23:15 77 16 91/57 (68) 100 08/11/20 23:07 73 16 40 08/11/20 23:00 16 91/57 Mechanical Ventilator 40 08/11/20 23:00 75 18 105/69 (81) 99 08/11/20 22:45 75 16 96/64 (75) 100 08/11/20 22:30 77 16 108/71 (83) 98 08/11/20 22:15 78 17 113/75 (88) 99 08/11/20 22:00 82 18 112/67 (82) 100 08/11/20 22:00 16 113/75 Mechanical Ventilator 40 08/11/20 21:29 85 18 40 08/11/20 21:00 82 22 150/86 (107) 100 08/11/20 21:00 18 142/85 Mechanical Ventilator 40 08/11/20 20:30 78 18 132/66 (88) 100 08/11/20 20:00 Mechanical Ventilator 08/11/20 20:00 18 133/74 Mechanical Ventilator 40 08/11/20 20:00 78 08/11/20 20:00 98.8 74 17 116/76 (89) 100 08/11/20 20:00 40 08/11/20 19:00 81 16 113/75 (88) 100 08/11/20 19:00 16 113/75 Mechanical Ventilator 40 08/11/20 18:57 78 18 40 08/11/20 18:45 72 16 170/103 (125) 100 08/11/20 18:30 78 19 130/77 (94) 100 08/11/20 18:15 76 16 99/68 (78) 100 08/11/20 18:00 16 99/68 Mechanical Ventilator 40 08/11/20 18:00 77 16 103/65 (78) 100 08/11/20 17:45 76 16 101/66 (78) 100 08/11/20 17:30 79 26 103/72 (82) 100 08/11/20 17:15 80 21 119/72 (88) 100 08/11/20 17:00 20 119/80 Mechanical Ventilator 40 08/11/20 17:00 80 19 119/80 (93) 100 08/11/20 16:45 78 21 175/101 (125) 100 08/11/20 16:30 80 19 135/89 (104) 100 08/11/20 16:15 81 17 137/84 (101) 100 08/11/20 16:00 79 08/11/20 16:00 98.4 79 17 113/98 (103) 100 08/11/20 16:00 40 08/11/20 16:00 Mechanical Ventilator 08/11/20 16:00 19 137/84 Mechanical Ventilator 40 08/11/20 15:48 87 17 40 08/11/20 15:45 77 17 140/84 (102) 100 08/11/20 15:30 79 17 131/72 (91) 100 08/11/20 15:15 83 19 156/85 (108) 100 08/11/20 15:00 18 165/79 Mechanical Ventilator 40 08/11/20 15:00 78 23 165/79 (107) 99 08/11/20 14:45 73 16 95/59 (71) 100 08/11/20 14:30 73 16 103/62 (76) 100 08/11/20 14:15 73 16 104/67 (79) 100 08/11/20 14:00 19 104/67 Mechanical Ventilator 40 08/11/20 14:00 73 16 122/72 (89) 100 08/11/20 13:45 79 18 125/73 (90) 100 08/11/20 13:30 76 16 110/69 (83) 100 I&O Intake and Output 08/11/20 08/12/20 19:00 07:00 Intake Total 1573.75 ml 2462.925 ml Output Total 1375 ml 1265 ml Balance 198.75 ml 1197.925 ml Free Water 160 ml IV Total 1213.75 ml 1882.925 ml Tube Feeding 360 ml 360 ml Other 60 ml Output Urine Total 1375 ml 1265 ml Dressing: saturated Cardiovascular: RSR Respiratory: decreased breath sounds Abdomen: distended, non-tender, decreased bowel sounds Extremities: no edema, no tenderness, no cyanosis Laboratory Tests Test 08/12/20 04:00 White Blood Count 17.5 K/UL (4.8-10.8) H Red Blood Count 3.46 M/UL (4.70-6.10) L Hemoglobin 9.3 G/DL (14.2-18.0) L Hematocrit 31.1 % (42.0-52.0) L Mean Corpuscular Volume 90 FL (80-99) Mean Corpuscular Hemoglobin 26.9 PG (27.0-31.0) L Mean Corpuscular Hemoglobin Concent 30.0 G/DL (32.0-36.0) L Red Cell Distribution Width 14.5 % (11.6-14.8) Platelet Count 323 K/UL (150-450) Mean Platelet Volume 6.2 FL (6.5-10.1) L Neutrophils (%) (Auto) % (45.0-75.0) Lymphocytes (%) (Auto) % (20.0-45.0) Monocytes (%) (Auto) % (1.0-10.0) Eosinophils (%) (Auto) % (0.0-3.0) Basophils (%) (Auto) % (0.0-2.0) Differential Total Cells Counted 100 Neutrophils % (Manual) 95 % (45-75) H Lymphocytes % (Manual) 2 % (20-45) L Monocytes % (Manual) 3 % (1-10) Eosinophils % (Manual) 0 % (0-3) Basophils % (Manual) 0 % (0-2) Band Neutrophils 0 % (0-8) Platelet Estimate Adequate Platelet Morphology Normal Hypochromasia 1+ Sodium Level 140 MMOL/L (136-145) Potassium Level 3.9 MMOL/L (3.5-5.1) Chloride Level 103 MMOL/L (98-107) Carbon Dioxide Level 28 MMOL/L (21-32) Anion Gap 9 mmol/L (5-15) Blood Urea Nitrogen 18 mg/dL (7-18) Creatinine 0.7 MG/DL (0.55-1.30) Estimat Glomerular Filtration Rate > 60 mL/min (>60) Glucose Level 149 MG/DL (74-106) H Calcium Level 8.1 MG/DL (8.5-10.1) L Phosphorus Level 3.0 MG/DL (2.5-4.9) Magnesium Level 2.2 MG/DL (1.8-2.4) Total Bilirubin 0.4 MG/DL (0.2-1.0) Aspartate Amino Transf (AST/SGOT) 31 U/L (15-37) Alanine Aminotransferase (ALT/SGPT) 40 U/L (12-78) Alkaline Phosphatase 60 U/L (46-116) C-Reactive Protein, Quantitative 3.0 mg/dL (0.00-0.90) H Pro-B-Type Natriuretic Peptide 360 pg/mL (0-125) H Total Protein 5.9 G/DL (6.4-8.2) L Albumin 2.0 G/DL (3.4-5.0) L Globulin 3.9 g/dL Albumin/Globulin Ratio 0.5 (1.0-2.7) L Plan Problems: (1) Abdominal distension Assessment & Plan: 79M abdominal distention, respiratory decline, altered mental status. on exam noted abd soft, mild distended, non tender. no n/v/f/c. unlikely aspiration. non tender one exam. pending urine and covid test. no acute surgical intervention. hold on ct. kub ordered. will follow with exam and recs. keep npo for now. iv fluids. respiratory pulm support. will follow with recs thank you decline since admission now intubated ng tube to suction no acute surgical intervention cont abx kub noted wean vent enema when stable The rectum is considerably distended with stool. Considerable stool is also seen in the descending colon. The colon is diffusely gas filled, upper limits of normal in caliber. No significant small bowel gas demonstrated. No masses or unusual calcifications. The included lung bases demonstrate bilateral right greater than left pleural effusions. There is a Butler catheter Impression: Distended stool-filled rectum, fecal impaction possible Gas-filled upper limits of normal caliber colon, nonspecific Bilateral right greater than left pleural effusions (2) UTI (urinary tract infection) (3) Pneumonia (4) Multiple pulmonary nodules (5) Respiratory failure with hypoxia (6) Pneumonia due to COVID-19 virus (7) History of CVA (cerebrovascular accident) (8) COPD (chronic obstructive pulmonary disease) (9) HTN (hypertension) (10) Hx of prostatic malignancy (11) Major depression (12) Seizure disorder Destin Brown 24, 2021 13:21
--- NOTE | 2020-08-12 14:00 | NUR ---
NURSE NOTES: Pt repositioned. No distress noted.
--- NOTE | 2020-08-12 16:00 | NUR ---
NURSE NOTES: Pt repositioned and cleaned. Afebrile. PO care provided. No distress noted.
[2020-08-12] MEDS: Docusate 100mg/10ml Liq NG SCH (17:06)
[2020-08-12] MEDS ORDERED: Tubing IV Secondary IV ONE (17:58)
[2020-08-12] MEDS ORDERED: NS 275ml ONE (17:58)
[2020-08-12] MEDS ORDERED: D5 1/2NS 1000ml IV ONE (17:58)
--- NOTE | 2020-08-12 18:00 | NUR ---
NURSE NOTES: Pt repositioned and cleaned. No distress noted.
--- NOTE | 2020-08-12 19:30 | NUR ---
NURSE NOTES: Received report from Kavitha LEMON.
--- NOTE | 2020-08-12 19:34 | NUR ---
NURSE HAND-OFF REPORT: Latest Vital Signs: Temperature 98.5 , Pulse 87 , B/P 147 /96 , Respiratory Rate 28 , O2 SAT 98 , Mechanical Ventilator, FiO2 40 %. Vital Sign Comment: stable EKG Rhythm: Sinus Rhythm Rhythm change?: N MD Notified?: n/a MD Response: n/a Latest Castro Fall Score: 50 Fall Risk: High Risk Safety Measures: Call light Within Reach, Bed Alarm Zone 2, Side Rails Side Rails x2, Bed position Low and Locked. Fall Precautions: Yellow Socks Yellow Gown Door Sign Patient Fall Education Report given to ION Cohen.
--- NOTE | 2020-08-12 20:00 | NUR ---
NURSE NOTES: Patient in bed sedated rass score -2. Patient orally intubated fi02 40% satting 100%. OGT intact no residual On Glucerna 1.5 at 30cc/hr. HOB elevated. Butler draining. Patient with Right Femoral TLC infusing Fentanyl at 100mcg/hr, D5 1/2 NS at 75cc/hr. LIBBY PICC line intact. bed alarm on. bed locked and in low position. will continue plan of care. Contact isolation maintained and observed.
[2020-08-12] MEDS: Dyna-Hex 2% Top Sol 2oz TOPIC SCH (20:09)
[2020-08-12] MEDS: Miralax 17gm pkt ORAL SCH (20:10)
--- NOTE | 2020-08-12 22:00 | NUR ---
NURSE NOTES: Repositioned patient in bed. oral care provided. no s/s of acute distress noted.
[2020-08-13] VITALS (40 sets, daily range): BP systolic 92–154; BP diastolic 58–100
--- NOTE | 2020-08-13 | NUR ---
NURSE NOTES: Patient in bed sleeping comfortably. sedated. no s/s of acute distress noted. no fever. call light within easy reach. will continue plan of care.
[2020-08-13] MEDS: Solu-MEDROL 40mg Inj IVP SCH ×4 (00:22→17:02)
[2020-08-13] MEDS: Norepinephrine 4mg/NS Premix 250 ML IV SCH (00:30)
[2020-08-13] MEDS: D5 1/2NS 1,000 ML IV SCH ×2 (00:31→13:29)
--- NOTE | 2020-08-13 02:00 | NUR ---
NURSE NOTES: Patient in bed sleeping comfortably. sedated. no s/s of acute distress noted. no fever. call light within easy reach. will continue plan of care.
[2020-08-13] MEDS: Vancomycin 1.25gm/250ml Premix IVPB SCH ×3 (03:14→20:01)
[2020-08-13] MEDS: fentaNYL 2500mcg/NS 250ml 250 ML IV PRN (03:15)
--- NOTE | 2020-08-13 06:00 | NUR ---
NURSE NOTES: Bed bath given tolerated well.
[2020-08-13] MEDS: Gabapentin 300 MG/6 ML Soln NG SCH ×3 (06:12→22:44)
[2020-08-13 06:24] LABS: HEMATOCRIT 28.7 % (42.0-52.0); HEMOGLOBIN 8.8 G/DL (14.2-18.0); MEAN CORPUSCULAR VOLUME 88 FL (80-99); PLATELET COUNT 285 K/UL (150-450); RED BLOOD COUNT 3.25 M/UL (4.70-6.10); RED CELL DISTRIBUTION WIDTH 13.8 % (11.6-14.8); WHITE BLOOD COUNT 17.7 K/UL (4.8-10.8)
[2020-08-13 06:31] LABS: ANION GAP 2 mmol/L (5-15); BLOOD UREA NITROGEN 17 mg/dL (7-18); CALCIUM 8.6 MG/DL (8.5-10.1); CARBON DIOXIDE 34 MMOL/L (21-32); CHLORIDE 102 MMOL/L (98-107); CREATININE 0.7 MG/DL (0.55-1.30); POTASSIUM 3.8 MMOL/L (3.5-5.1); SODIUM 138 MMOL/L (136-145)
[2020-08-13] MEDS: Albuterol/Ipratropium 3ml neb HHN SCH ×3 (07:20→22:45)
--- NOTE | 2020-08-13 07:30 | NUR ---
NURSE HAND-OFF REPORT: Latest Vital Signs: Temperature 98.5 , Pulse 74 , B/P 92 /65 , Respiratory Rate 20 , O2 SAT 99 , Mechanical Ventilator, O2 Flow Rate 10.0 . Vital Sign Comment: EKG Rhythm: Sinus Rhythm Rhythm change?: N MD Notified?: - MD Response: Latest Castro Fall Score: 50 Fall Risk: High Risk Safety Measures: Call light Within Reach, Bed Alarm Zone 2, Side Rails Side Rails x2, Bed position Low and Locked. Fall Precautions: Yellow Socks Yellow Gown Door Sign Patient Fall Education Report given to Nicole LEMON.
--- NOTE | 2020-08-13 07:31 | NUR ---
NURSE NOTES: Received report from Vicki Trujillo RN. Patient in bed, lightly sedated RASS -2. Patient orally intubated fi02 40% satting 100%. OGT intact no residual On Glucerna 1.5 at 30cc/hr. HOB elevated. Butler draining. Patient with Right Femoral TLC infusing Fentanyl at 100mcg/hr, D5 1/2 NS at 75cc/hr. LIBBY PICC line intact. bed alarm on. bed locked and in low position. Will continue plan of care. Contact isolation maintained and observed.
--- NOTE | 2020-08-13 07:32 | NUR ---
NURSE NOTES: Held fentanyl drip for weaning protocol.
[2020-08-13] MEDS: Cefepime 2gm/D5W 110ml IV SCH ×4 (09:02→20:02)
[2020-08-13] MEDS: Enoxaparin 60mg Inj SUBQ SCH ×2 (09:03→20:03)
[2020-08-13] MEDS: Docusate 100mg/10ml Liq NG SCH ×2 (09:04→20:06)
--- NOTE | 2020-08-13 09:28 | NUR ---
RADIOLOGY DEPT., CHEST X-RAY DONE.-P.DYE
--- NOTE | 2020-08-13 10:00 | NUR ---
RESPIRATORY NOTE: @[address] Schneider to trim ET tube 2cms. Carried out and tolerated well. Airway is secure and patent. 23cm @ the lip. Will continue to monitor. Nicole DSOUZA aware. @1020 placed on CPAP 5 PS 8 per weaning order and did not tolerate well. RSBI 135; RR 35-45. Patient placed back on AC mode @1026 and is stable with no signs of respiratory distress or sob noted. Will continue to monitor. Nicole Dsouza aware.
--- NOTE | 2020-08-13 10:03 | Pulmonology Progress Note ---
Subjective ROS Limited/Unobtainable: Yes Interval Events: Intubated 08/05/20 Constitutional: Reports: fatigue, other - on vent but no pressors ; Denies: fever HEENT: Repors: no symptoms Respiratory: Reports: shortness of breath Cardiovascular: Reports: no symptoms Gastrointestinal/Abdominal: Denies: nausea, vomiting, diarrhea Genitourinary: Reports: no symptoms Neurologic: Reports: no symptoms Psychiatric: Reports: other - NA Skin: Denies: rash Musculoskeletal: Reports: other - NA Allergies: Coded Allergies: PENICILLINS (Verified Allergy, Unknown, 03/10/20) PHENYTOIN (Verified Allergy, Unknown, 03/10/20) Objective Last 24 Hour Vital Signs Date Time Temp Pulse Resp B/P (MAP) Pulse Ox O2 Delivery O2 Flow Rate FiO2 08/13/20 09:30 81 24 109/80 (90) 98 08/13/20 09:00 78 22 131/83 (99) 98 08/13/20 08:30 76 19 133/69 (90) 99 08/13/20 08:00 Mechanical Ventilator 08/13/20 08:00 40 08/13/20 08:00 98.0 83 26 148/75 (99) 94 08/13/20 07:40 65 08/13/20 07:30 65 18 108/73 (85) 99 08/13/20 07:20 74 20 99 40 74 24 08/13/20 07:00 75 19 92/65 (74) 99 08/13/20 07:00 20 105/56 Mechanical Ventilator 40 08/13/20 06:30 70 21 08/13/20 06:00 22 126/73 Mechanical Ventilator 40 08/13/20 06:00 76 13 115/59 (77) 08/13/20 05:00 22 126/73 Mechanical Ventilator 40 08/13/20 05:00 77 22 111/67 (82) 96 08/13/20 04:48 75 17 40 08/13/20 04:30 80 24 130/75 (93) 96 08/13/20 04:00 79 08/13/20 04:00 84 24 142/84 (103) 95 08/13/20 04:00 Mechanical Ventilator 08/13/20 04:00 23 130/75 Mechanical Ventilator 40 08/13/20 04:00 40 08/13/20 03:25 75 21 40 08/13/20 03:15 19 128/81 Mechanical Ventilator 10.0 40 08/13/20 03:14 20 116/67 Mechanical Ventilator 40 08/13/20 03:00 77 19 128/81 (97) 97 08/13/20 03:00 21 116/67 Mechanical Ventilator 40 08/13/20 02:00 81 24 116/76 (89) 97 08/13/20 02:00 20 107/74 Mechanical Ventilator 40 08/13/20 01:07 79 17 40 08/13/20 01:00 78 19 103/58 (73) 97 08/13/20 01:00 18 97/64 Mechanical Ventilator 40 08/13/20 00:30 101/58 08/13/20 00:00 86 08/13/20 00:00 40 08/13/20 00:00 Mechanical Ventilator 08/13/20 00:00 18 101/58 Mechanical Ventilator 40 08/13/20 00:00 82 08/13/20 00:00 98.5 80 15 101/58 (72) 97 08/12/20 23:00 18 101/54 Mechanical Ventilator 40 08/12/20 23:00 81 16 101/54 (70) 99 08/12/20 22:54 76 21 100 Mechanical Ventilator 40 79 22 08/12/20 22:00 81 19 112/57 (75) 97 08/12/20 22:00 17 97/65 Mechanical Ventilator 40 08/12/20 21:09 86 22 40 08/12/20 21:00 18 121/57 Mechanical Ventilator 40 08/12/20 21:00 81 14 115/66 (82) 97 08/12/20 20:00 21 117/65 Mechanical Ventilator 40 08/12/20 20:00 Mechanical Ventilator 08/12/20 20:00 40 08/12/20 20:00 98.7 83 20 117/65 (82) 96 08/12/20 19:07 87 28 40 08/12/20 19:00 27 147/96 Mechanical Ventilator 40 08/12/20 19:00 89 27 147/96 (113) 98 08/12/20 18:00 78 19 119/65 (83) 98 08/12/20 18:00 19 119/65 Mechanical Ventilator 40 08/12/20 17:00 77 22 130/67 (88) 99 08/12/20 17:00 22 130/67 Mechanical Ventilator 40 08/12/20 16:00 98.5 73 21 115/63 (80) 99 08/12/20 16:00 21 115/63 Mechanical Ventilator 40 08/12/20 16:00 Mechanical Ventilator 08/12/20 16:00 40 08/12/20 16:00 72 08/12/20 15:00 70 18 107/61 (76) 100 08/12/20 15:00 18 107/61 Mechanical Ventilator 40 08/12/20 14:50 78 20 99 Mechanical Ventilator 40 78 18 08/12/20 14:00 16 119/72 Mechanical Ventilator 40 08/12/20 14:00 72 21 114/66 (82) 99 08/12/20 13:00 16 129/68 Mechanical Ventilator 40 08/12/20 13:00 74 22 116/68 (84) 100 08/12/20 12:00 Mechanical Ventilator 08/12/20 12:00 18 127/61 Mechanical Ventilator 40 08/12/20 12:00 40 08/12/20 12:00 66 08/12/20 12:00 98.6 68 13 121/64 (83) 100 08/12/20 11:00 63 16 122/68 (86) 100 08/12/20 11:00 17 120/62 Mechanical Ventilator 40 08/12/20 10:55 80 16 99 Mechanical Ventilator 40 82 16 Intake and Output 08/12/20 08/13/20 19:00 07:00 Intake Total 1895.000 ml 2519.700 ml Output Total 2200 ml 1850 ml Balance -305.000 ml 669.700 ml Free Water 70 ml 150 ml IV Total 1465.000 ml 1829.700 ml Tube Feeding 360 ml 360 ml Other 180 ml Output Urine Total 2200 ml 1850 ml General Appearance: no acute distress HEENT: normocephalic Respiratory: chest wall non-tender, lungs clear Cardiovascular: normal peripheral pulses, normal rate Abdomen: normal bowel sounds Extremities: no cyanosis Laboratory Tests 08/13/20 05:10: White Blood Count 17.7H, Red Blood Count 3.25L, Hemoglobin 8.8L, Hematocrit 28.7L, Mean Corpuscular Volume 88, Mean Corpuscular Hemoglobin 27.1, Mean Corpuscular Hemoglobin Concent 30.7L, Red Cell Distribution Width 13.8, Platelet Count 285, Mean Platelet Volume 6.9, Neutrophils (%) (Auto) , Lymphocytes (%) (Auto) , Monocytes (%) (Auto) , Eosinophils (%) (Auto) , Basophils (%) (Auto) , Differential Total Cells Counted 100, Neutrophils % (Manual) 91H, Lymphocytes % (Manual) 5L, Monocytes % (Manual) 4, Eosinophils % (Manual) 0, Basophils % (Manual) 0, Band Neutrophils 0, Platelet Estimate Adequate, Platelet Morphology Normal, Hypochromasia 1+, Sodium Level 138, Potassium Level 3.8, Chloride Level 102, Carbon Dioxide Level 34H, Anion Gap 2L, Blood Urea Nitrogen 17, Creatinine 0.7, Estimat Glomerular Filtration Rate > 60, Glucose Level 140H, Calcium Level 8.6 Current Medications Medications (Trade) Dose Ordered Sig/Armand Route PRN Reason Start Time Stop Time Status Last Admin Dose Admin Acetaminophen (Tylenol) 650 mg Q6H PRN NG Mild Pain (Pain Scale 1-3) 08/08/20 14:00 09/07/20 13:59 08/09/20 20:31 Acetaminophen (Tylenol) 650 mg Q6H PRN NG Temp >100.5 08/08/20 14:00 09/07/20 13:59 Albuterol/ Ipratropium (Albuterol/ Ipratropium) 3 ml Q4H PRN HHN Shortness of Breath 08/12/20 09:00 08/17/20 08:59 Albuterol/ Ipratropium (Albuterol/ Ipratropium) 3 ml Q8HRT HHN 08/12/20 09:00 08/17/20 08:59 08/13/20 07:20 Cefepime HCl 2 gm/ Dextrose 110 ml @ 220 mls/hr EVERY 12 HOURS IV 08/05/20 21:00 08/18/20 23:59 08/13/20 09:02 Chlorhexidine Gluconate (Maddie-Hex 2%) 1 applic DAILY@2000 TOPIC 08/07/20 20:00 11/05/20 19:59 08/12/20 20:09 Dextrose/Sodium Chloride 1,000 ml @ 75 mls/hr [id number] IV 08/06/20 11:00 09/05/20 10:59 08/13/20 00:31 Docusate Sodium (Colace) 100 mg TWICE A DAY NG 08/12/20 18:00 09/11/20 17:59 08/13/20 09:04 Enoxaparin Sodium (Lovenox) 60 mg EVERY 12 HOURS SUBQ 08/05/20 21:00 11/03/20 20:59 08/13/20 09:03 Famotidine (Pepcid I.v.) 20 mg Q12HR IVP 08/06/20 11:00 09/05/20 10:59 08/13/20 09:04 Fentanyl Citrate 250 ml @ 0 mls/hr Q24H PRN IV . 08/13/20 04:00 08/15/20 03:59 08/13/20 03:15 Gabapentin (Neurontin) 300 mg EVERY 8 HOURS NG 08/08/20 22:00 09/04/20 08:59 08/13/20 06:12 Methylprednisolone Sodium Succinate (Solu-MEDROL) 40 mg EVERY 6 HOURS IVP 08/05/20 12:00 11/03/20 11:59 08/13/20 06:12 Metronidazole 100 ml @ 100 mls/hr Q8HR IVPB 08/09/20 22:00 08/16/20 21:59 08/13/20 06:12 Norepinephrine Bitartrate 250 ml @ 0 mls/hr Q24H IV 08/12/20 00:30 08/15/20 00:21 08/12/20 00:59 Polyethylene Glycol (Miralax) 17 gm BEDTIME ORAL 08/12/20 21:00 09/11/20 20:59 08/12/20 20:10 Vancomycin HCl 250 ml @ 166.667 mls/hr Q8HR@0400,1200,2000 IVPB 08/08/20 20:00 08/16/20 23:59 08/13/20 03:14 Vancomycin HCl ([facility]anco pharmacy to dose) 1 ea DAILY PRN MISC Per rx protocol 08/04/20 09:15 09/03/20 09:14 Assessment/Plan Assessment/Plan 1. UTI -On empiric antibiotics -Follow-up UCx negative (08/03) 2. Pneumonia -On broad-spectrum antibiotics - CXR concerning for volume loss; reviewed chest CT - CT chest shows dense RUL and RML consolidation - High suspicion for RBI narrowing ; no obvious endobronchial narrowing noted on bronchoscopy 3. COPD exacerbation -Now intubated 4. Respiratory distress - Continue steroids 5. History of seizures -Risk of aspiration -Monitor for seizure activity 6. Elevated CRP -D-dimer wnl -His outpatient medications include Eliquis (hx of A fib?) - Continue Eliquis 7. Monitor carefully in ICU S/p intubation On Levophed; low dose;n Continue AC mode; will continue weaning FiO2 90->80 ->40% PEEP 5 Micha Schneider MD Aug 13, 2020 10:03
--- NOTE | 2020-08-13 10:26 | Nephrology Progress Note ---
Assessment/Plan Problem List: (1) Oliguria (2) Electrolyte imbalance (3) Pneumonia (4) Respiratory failure with hypoxia (5) Pneumonia due to COVID-19 virus (6) Seizure disorder (7) Anemia Assessment Sepsis, respiratory failure Pneumonia and possible aspiration. Questionable COVID-19 infection UTI Abnormal electrolytes Questionable CHF Anemia Plan August 13: Status quo. Remains full code, intubated, on FiO2 of 40%. Labs reviewed. Renal parameters stable. Continue per consultants. August 12: Intubated on ventilator. FiO2 40% unchanged. Full code. Labs reviewed. Renal parameters stable. Continue per consultants. August 11: Intubated on ventilator. O2 40%. Full code. Medication list reviewed. Labs reviewed. Stable from renal standpoint of view. Continue per consultants. August 10: Status quo. Intubated on ventilator. FiO2 remains 40%. Renal parameters stable. Continue per current management. Potassium and phosphorus supplement given August 09: Full code. Intubated on ventilator. FiO2 40%. Labs reviewed. Stable from renal standpoint of view. August 08: Labs reviewed. Renal parameters stable. Abnormal electrolytes addressed. Remains full code. FiO2 50%. Continue per consultants. Discussed with RN. August 07: Labs reviewed. K Phos IV given. Patient intubated. Full code. FiO2 60%. Medication list reviewed. Continue per consultants. Previously: Optimize pulmonary status Optimize cardiac status Monitor renal parameters, urine output, electrolytes Change IV to half-normal saline Anemia mansfield Insert NG tube and start feeding Per orders Subjective ROS Limited/Unobtainable: Yes Objective Objective Last 24 Hour Vital Signs Date Time Temp Pulse Resp B/P (MAP) Pulse Ox O2 Delivery O2 Flow Rate FiO2 08/13/20 09:30 81 24 109/80 (90) 98 08/13/20 09:00 78 22 131/83 (99) 98 08/13/20 08:30 76 19 133/69 (90) 99 08/13/20 08:00 Mechanical Ventilator 08/13/20 08:00 40 08/13/20 08:00 98.0 83 26 148/75 (99) 94 08/13/20 07:40 65 08/13/20 07:30 65 18 108/73 (85) 99 08/13/20 07:20 74 20 99 40 74 24 08/13/20 07:00 75 19 92/65 (74) 99 08/13/20 07:00 20 105/56 Mechanical Ventilator 40 08/13/20 06:30 70 21 08/13/20 06:00 22 126/73 Mechanical Ventilator 40 08/13/20 06:00 76 13 115/59 (77) 08/13/20 05:00 22 126/73 Mechanical Ventilator 40 08/13/20 05:00 77 22 111/67 (82) 96 08/13/20 04:48 75 17 40 08/13/20 04:30 80 24 130/75 (93) 96 08/13/20 04:00 79 08/13/20 04:00 84 24 142/84 (103) 95 08/13/20 04:00 Mechanical Ventilator 08/13/20 04:00 23 130/75 Mechanical Ventilator 40 08/13/20 04:00 40 08/13/20 03:25 75 21 40 08/13/20 03:15 19 128/81 Mechanical Ventilator 10.0 40 08/13/20 03:14 20 116/67 Mechanical Ventilator 40 08/13/20 03:00 77 19 128/81 (97) 97 08/13/20 03:00 21 116/67 Mechanical Ventilator 40 08/13/20 02:00 81 24 116/76 (89) 97 08/13/20 02:00 20 107/74 Mechanical Ventilator 40 08/13/20 01:07 79 17 40 08/13/20 01:00 78 19 103/58 (73) 97 08/13/20 01:00 18 97/64 Mechanical Ventilator 40 08/13/20 00:30 101/58 08/13/20 00:00 86 08/13/20 00:00 40 08/13/20 00:00 Mechanical Ventilator 08/13/20 00:00 18 101/58 Mechanical Ventilator 40 08/13/20 00:00 82 08/13/20 00:00 98.5 80 15 101/58 (72) 97 08/12/20 23:00 18 101/54 Mechanical Ventilator 40 08/12/20 23:00 81 16 101/54 (70) 99 08/12/20 22:54 76 21 100 Mechanical Ventilator 40 79 22 08/12/20 22:00 81 19 112/57 (75) 97 08/12/20 22:00 17 97/65 Mechanical Ventilator 40 08/12/20 21:09 86 22 40 2/24/21 21:00 18 121/57 Mechanical Ventilator 40 08/12/20 21:00 81 14 115/66 (82) 97 08/12/20 20:00 21 117/65 Mechanical Ventilator 40 08/12/20 20:00 Mechanical Ventilator 08/12/20 20:00 40 08/12/20 20:00 98.7 83 20 117/65 (82) 96 08/12/20 19:07 87 28 40 08/12/20 19:00 27 147/96 Mechanical Ventilator 40 08/12/20 19:00 89 27 147/96 (113) 98 08/12/20 18:00 78 19 119/65 (83) 98 08/12/20 18:00 19 119/65 Mechanical Ventilator 40 08/12/20 17:00 77 22 130/67 (88) 99 08/12/20 17:00 22 130/67 Mechanical Ventilator 40 08/12/20 16:00 98.5 73 21 115/63 (80) 99 08/12/20 16:00 21 115/63 Mechanical Ventilator 40 08/12/20 16:00 Mechanical Ventilator 08/12/20 16:00 40 08/12/20 16:00 72 08/12/20 15:00 70 18 107/61 (76) 100 08/12/20 15:00 18 107/61 Mechanical Ventilator 40 08/12/20 14:50 78 20 99 Mechanical Ventilator 40 78 18 08/12/20 14:00 16 119/72 Mechanical Ventilator 40 08/12/20 14:00 72 21 114/66 (82) 99 08/12/20 13:00 16 129/68 Mechanical Ventilator 40 08/12/20 13:00 74 22 116/68 (84) 100 08/12/20 12:00 Mechanical Ventilator 08/12/20 12:00 18 127/61 Mechanical Ventilator 40 08/12/20 12:00 40 08/12/20 12:00 66 08/12/20 12:00 98.6 68 13 121/64 (83) 100 08/12/20 11:00 63 16 122/68 (86) 100 08/12/20 11:00 17 120/62 Mechanical Ventilator 40 08/12/20 10:55 80 16 99 Mechanical Ventilator 40 82 16 l Intake and Output 08/12/20 08/13/20 19:00 07:00 Intake Total 1895.000 ml 2519.700 ml Output Total 2200 ml 1850 ml Balance -305.000 ml 669.700 ml Free Water 70 ml 150 ml IV Total 1465.000 ml 1829.700 ml Tube Feeding 360 ml 360 ml Other 180 ml Output Urine Total 2200 ml 1850 ml Current Medications Medications (Trade) Dose Ordered Sig/Armand Route PRN Reason Start Time Stop Time Status Last Admin Dose Admin Acetaminophen (Tylenol) 650 mg Q6H PRN NG Mild Pain (Pain Scale 1-3) 08/08/20 14:00 09/07/20 13:59 08/09/20 20:31 Acetaminophen (Tylenol) 650 mg Q6H PRN NG Temp >100.5 08/08/20 14:00 09/07/20 13:59 Albuterol/ Ipratropium (Albuterol/ Ipratropium) 3 ml Q4H PRN HHN Shortness of Breath 08/12/20 09:00 08/17/20 08:59 Albuterol/ Ipratropium (Albuterol/ Ipratropium) 3 ml Q8HRT HHN 08/12/20 09:00 08/17/20 08:59 08/13/20 07:20 Cefepime HCl 2 gm/ Dextrose 110 ml @ 220 mls/hr EVERY 12 HOURS IV 08/05/20 21:00 08/18/20 23:59 08/13/20 09:02 Chlorhexidine Gluconate (Maddie-Hex 2%) 1 applic DAILY@2000 TOPIC 08/07/20 20:00 11/05/20 19:59 08/12/20 20:09 Dextrose/Sodium Chloride 1,000 ml @ 75 mls/hr [id number] IV 08/06/20 11:00 09/05/20 10:59 08/13/20 00:31 Docusate Sodium (Colace) 100 mg TWICE A DAY NG 08/12/20 18:00 09/11/20 17:59 08/13/20 09:04 Enoxaparin Sodium (Lovenox) 60 mg EVERY 12 HOURS SUBQ 08/05/20 21:00 11/03/20 20:59 08/13/20 09:03 Famotidine (Pepcid I.v.) 20 mg Q12HR IVP 08/06/20 11:00 09/05/20 10:59 08/13/20 09:04 Fentanyl Citrate 250 ml @ 0 mls/hr Q24H PRN IV . 08/13/20 04:00 08/15/20 03:59 08/13/20 03:15 Gabapentin (Neurontin) 300 mg EVERY 8 HOURS NG 08/08/20 22:00 09/04/20 08:59 08/13/20 06:12 Methylprednisolone Sodium Succinate (Solu-MEDROL) 40 mg EVERY 6 HOURS IVP 08/05/20 12:00 11/03/20 11:59 08/13/20 06:12 Metronidazole 100 ml @ 100 mls/hr Q8HR IVPB 08/09/20 22:00 08/16/20 21:59 08/13/20 06:12 Norepinephrine Bitartrate 250 ml @ 0 mls/hr Q24H IV 08/12/20 00:30 08/15/20 00:21 08/12/20 00:59 Polyethylene Glycol (Miralax) 17 gm BEDTIME ORAL 08/12/20 21:00 09/11/20 20:59 08/12/20 20:10 Vancomycin HCl 250 ml @ 166.667 mls/hr Q8HR@0400,1200,2000 IVPB 08/08/20 20:00 08/16/20 23:59 08/13/20 03:14 Vancomycin HCl ([facility] pharmacy to dose) 1 ea DAILY PRN MISC Per rx protocol 08/04/20 09:15 09/03/20 09:14 Laboratory Tests 08/13/20 05:10: White Blood Count 17.7H, Red Blood Count 3.25L, Hemoglobin 8.8L, Hematocrit 28.7L, Mean Corpuscular Volume 88, Mean Corpuscular Hemoglobin 27.1, Mean Cor puscular Hemoglobin Concent 30.7L, Red Cell Distribution Width 13.8, Platelet Count 285, Mean Platelet Volume 6.9, Neutrophils (%) (Auto) , Lymphocytes (%) (Auto) , Monocytes (%) (Auto) , Eosinophils (%) (Auto) , Basophils (%) (Auto) , Differential Total Cells Counted 100, Neutrophils % (Manual) 91H, Lymphocytes % (Manual) 5L, Monocytes % (Manual) 4, Eosinophils % (Manual) 0, Basophils % (Manual) 0, Band Neutrophils 0, Platelet Estimate Adequate, Platelet Morphology Normal, Hypochromasia 1+, Sodium Level 138, Potassium Level 3.8, Chloride Level 102, Carbon Dioxide Level 34H, Anion Gap 2L, Blood Urea Nitrogen 17, Creatinine 0.7, Estimat Glomerular Filtration Rate > 60, Glucose Level 140H, Calcium Level 8.6 Height (Feet): 6 Height (Inches): 1.00 Weight (Pounds): 190 General Appearance: no apparent distress EENT: other - Intubated on ventilator Cardiovascular: normal rate Respiratory/Chest: decreased breath sounds Abdomen: distended Aashish Burgess MD Aug 13, 2020 10:26
--- NOTE | 2020-08-13 10:57 | Cardiac Electrophysiology PN ---
Assessment/Plan Assessment/Plan 1. Respiratory failure. On the Vent and IV antibiotic. On 40% Fio2 Echocardiogram showed EF 50% 2. Questionable congestive heart failure. EF normal and BNP is only 39. 3. Septic shock off Levo 4. History of COVID pneumonia, status post vaccination for COVID. Currently on IV antibiotic and prednisone. Now off isolation 5. Questionable history of atrial fibrillation versus DVT. The patient is on Eliquis 2.5 mg b.i.d. Currently in SR 6. Full Code Subjective Subjective In ICU on 40% Fio2 and PEEP 5. OGT in place In SR. Off restraints off fentanyl drip Off levo and off pressors Objective Last 24 Hour Vital Signs Date Time Temp Pulse Resp B/P (MAP) Pulse Ox O2 Delivery O2 Flow Rate FiO2 08/13/20 09:30 81 24 109/80 (90) 98 08/13/20 09:00 78 22 131/83 (99) 98 08/13/20 08:30 76 19 133/69 (90) 99 08/13/20 08:00 Mechanical Ventilator 08/13/20 08:00 40 08/13/20 08:00 98.0 83 26 148/75 (99) 94 08/13/20 07:40 65 08/13/20 07:30 65 18 108/73 (85) 99 08/13/20 07:20 74 20 99 40 74 24 08/13/20 07:00 75 19 92/65 (74) 99 08/13/20 07:00 20 105/56 Mechanical Ventilator 40 08/13/20 06:30 70 21 08/13/20 06:00 22 126/73 Mechanical Ventilator 40 08/13/20 06:00 76 13 115/59 (77) 08/13/20 05:00 22 126/73 Mechanical Ventilator 40 08/13/20 05:00 77 22 111/67 (82) 96 08/13/20 04:48 75 17 40 08/13/20 04:30 80 24 130/75 (93) 96 08/13/20 04:00 79 08/13/20 04:00 84 24 142/84 (103) 95 08/13/20 04:00 Mechanical Ventilator 08/13/20 04:00 23 130/75 Mechanical Ventilator 40 08/13/20 04:00 40 08/13/20 03:25 75 21 40 08/13/20 03:15 19 128/81 Mechanical Ventilator 10.0 40 08/13/20 03:14 20 116/67 Mechanical Ventilator 40 08/13/20 03:00 77 19 128/81 (97) 97 08/13/20 03:00 21 116/67 Mechanical Ventilator 40 08/13/20 02:00 81 24 116/76 (89) 97 08/13/20 02:00 20 107/74 Mechanical Ventilator 40 08/13/20 01:07 79 17 40 08/13/20 01:00 78 19 103/58 (73) 97 08/13/20 01:00 18 97/64 Mechanical Ventilator 40 08/13/20 00:30 101/58 08/13/20 00:00 86 08/13/20 00:00 40 08/13/20 00:00 Mechanical Ventilator 08/13/20 00:00 18 101/58 Mechanical Ventilator 40 08/13/20 00:00 82 08/13/20 00:00 98.5 80 15 101/58 (72) 97 08/12/20 23:00 18 101/54 Mechanical Ventilator 40 08/12/20 23:00 81 16 101/54 (70) 99 08/12/20 22:54 76 21 100 Mechanical Ventilator 40 79 22 08/12/20 22:00 81 19 112/57 (75) 97 08/12/20 22:00 17 97/65 Mechanical Ventilator 40 08/12/20 21:09 86 22 40 08/12/20 21:00 18 121/57 Mechanical Ventilator 40 08/12/20 21:00 81 14 115/66 (82) 97 08/12/20 20:00 21 117/65 Mechanical Ventilator 40 08/12/20 20:00 Mechanical Ventilator 08/12/20 20:00 40 08/12/20 20:00 98.7 83 20 117/65 (82) 96 08/12/20 19:07 87 28 40 08/12/20 19:00 27 147/96 Mechanical Ventilator 40 08/12/20 19:00 89 27 147/96 (113) 98 08/12/20 18:00 78 19 119/65 (83) 98 08/12/20 18:00 19 119/65 Mechanical Ventilator 40 08/12/20 17:00 77 22 130/67 (88) 99 08/12/20 17:00 22 130/67 Mechanical Ventilator 40 08/12/20 16:00 98.5 73 21 115/63 (80) 99 08/12/20 16:00 21 115/63 Mechanical Ventilator 40 08/12/20 16:00 Mechanical Ventilator 08/12/20 16:00 40 08/12/20 16:00 72 08/12/20 15:00 70 18 107/61 (76) 100 08/12/20 15:00 18 107/61 Mechanical Ventilator 40 08/12/20 14:50 78 20 99 Mechanical Ventilator 40 78 18 08/12/20 14:00 16 119/72 Mechanical Ventilator 40 08/12/20 14:00 72 21 114/66 (82) 99 08/12/20 13:00 16 129/68 Mechanical Ventilator 40 08/12/20 13:00 74 22 116/68 (84) 100 08/12/20 12:00 Mechanical Ventilator 08/12/20 12:00 18 127/61 Mechanical Ventilator 40 08/12/20 12:00 40 08/12/20 12:00 66 08/12/20 12:00 98.6 68 13 121/64 (83) 100 08/12/20 11:00 63 16 122/68 (86) 100 08/12/20 11:00 17 120/62 Mechanical Ventilator 40 Intake and Output 08/12/20 08/13/20 19:00 07:00 Intake Total 1895.000 ml 2519.700 ml Output Total 2200 ml 1850 ml Balance -305.000 ml 669.700 ml Free Water 70 ml 150 ml IV Total 1465.000 ml 1829.700 ml Tube Feeding 360 ml 360 ml Other 180 ml Output Urine Total 2200 ml 1850 ml Laboratory Tests Test 08/13/20 05:10 White Blood Count 17.7 K/UL (4.8-10.8) H Red Blood Count 3.25 M/UL (4.70-6.10) L Hemoglobin 8.8 G/DL (14.2-18.0) L Hematocrit 28.7 % (42.0-52.0) L Mean Corpuscular Volume 88 FL (80-99) Mean Corpuscular Hemoglobin 27.1 PG (27.0-31.0) Mean Corpuscular Hemoglobin Concent 30.7 G/DL (32.0-36.0) L Red Cell Distribution Width 13.8 % (11.6-14.8) Platelet Count 285 K/UL (150-450) Mean Platelet Volume 6.9 FL (6.5-10.1) Neutrophils (%) (Auto) % (45.0-75.0) Lymphocytes (%) (Auto) % (20.0-45.0) Monocytes (%) (Auto) % (1.0-10.0) Eosinophils (%) (Auto) % (0.0-3.0) Basophils (%) (Auto) % (0.0-2.0) Differential Total Cells Counted 100 Neutrophils % (Manual) 91 % (45-75) H Lymphocytes % (Manual) 5 % (20-45) L Monocytes % (Manual) 4 % (1-10) Eosinophils % (Manual) 0 % (0-3) Basophils % (Manual) 0 % (0-2) Band Neutrophils 0 % (0-8) Platelet Estimate Adequate Platelet Morphology Normal Hypochromasia 1+ Sodium Level 138 MMOL/L (136-145) Potassium Level 3.8 MMOL/L (3.5-5.1) Chloride Level 102 MMOL/L (98-107) Carbon Dioxide Level 34 MMOL/L (21-32) H Anion Gap 2 mmol/L (5-15) L Blood Urea Nitrogen 17 mg/dL (7-18) Creatinine 0.7 MG/DL (0.55-1.30) Estimat Glomerular Filtration Rate > 60 mL/min (>60) Glucose Level 140 MG/DL (74-106) H Calcium Level 8.6 MG/DL (8.5-10.1) Objective HEAD AND NECK: Orally intubated LUNGS: Coarse rhonchi. CARDIOVASCULAR: Regular S1 and S2 with no gallop. ABDOMEN: Soft. EXTREMITIES: 1 plus pitting edema. Devyn Magdaleno MD Aug 13, 2020 10:57
--- NOTE | 2020-08-13 11:18 | Surgery Progress Note ---
Surgery Progress Note Subjective Additional Comments awake. looks better eyes open on vent settings minimal. unfortunately continues to fail weaning labs noted Objective Last 24 Hour Vital Signs Date Time Temp Pulse Resp B/P (MAP) Pulse Ox O2 Delivery O2 Flow Rate FiO2 08/13/20 11:00 92 24 154/81 (105) 97 08/13/20 10:30 84 24 121/78 (92) 97 08/13/20 10:00 86 25 149/79 (102) 96 08/13/20 09:30 81 24 109/80 (90) 98 08/13/20 09:00 78 22 131/83 (99) 98 08/13/20 08:30 76 19 133/69 (90) 99 08/13/20 08:00 Mechanical Ventilator 08/13/20 08:00 40 08/13/20 08:00 98.0 83 26 148/75 (99) 94 08/13/20 07:40 65 08/13/20 07:30 65 18 108/73 (85) 99 08/13/20 07:20 74 20 99 40 74 24 08/13/20 07:00 75 19 92/65 (74) 99 08/13/20 07:00 20 105/56 Mechanical Ventilator 40 08/13/20 06:30 70 21 08/13/20 06:00 22 126/73 Mechanical Ventilator 40 08/13/20 06:00 76 13 115/59 (77) 08/13/20 05:00 22 126/73 Mechanical Ventilator 40 08/13/20 05:00 77 22 111/67 (82) 96 08/13/20 04:48 75 17 40 08/13/20 04:30 80 24 130/75 (93) 96 08/13/20 04:00 79 08/13/20 04:00 84 24 142/84 (103) 95 08/13/20 04:00 Mechanical Ventilator 08/13/20 04:00 23 130/75 Mechanical Ventilator 40 08/13/20 04:00 40 08/13/20 03:25 75 21 40 08/13/20 03:15 19 128/81 Mechanical Ventilator 10.0 40 08/13/20 03:14 20 116/67 Mechanical Ventilator 40 08/13/20 03:00 77 19 128/81 (97) 97 08/13/20 03:00 21 116/67 Mechanical Ventilator 40 08/13/20 02:00 81 24 116/76 (89) 97 08/13/20 02:00 20 107/74 Mechanical Ventilator 40 08/13/20 01:07 79 17 40 08/13/20 01:00 78 19 103/58 (73) 97 08/13/20 01:00 18 97/64 Mechanical Ventilator 40 08/13/20 00:30 101/58 08/13/20 00:00 86 08/13/20 00:00 40 08/13/20 00:00 Mechanical Ventilator 08/13/20 00:00 18 101/58 Mechanical Ventilator 40 08/13/20 00:00 82 08/13/20 00:00 98.5 80 15 101/58 (72) 97 08/12/20 23:00 18 101/54 Mechanical Ventilator 40 08/12/20 23:00 81 16 101/54 (70) 99 08/12/20 22:54 76 21 100 Mechanical Ventilator 40 79 22 08/12/20 22:00 81 19 112/57 (75) 97 08/12/20 22:00 17 97/65 Mechanical Ventilator 40 08/12/20 21:09 86 22 40 08/12/20 21:00 18 121/57 Mechanical Ventilator 40 08/12/20 21:00 81 14 115/66 (82) 97 08/12/20 20:00 21 117/65 Mechanical Ventilator 40 08/12/20 20:00 Mechanical Ventilator 08/12/20 20:00 40 08/12/20 20:00 98.7 83 20 117/65 (82) 96 08/12/20 19:07 87 28 40 08/12/20 19:00 27 147/96 Mechanical Ventilator 40 08/12/20 19:00 89 27 147/96 (113) 98 08/12/20 18:00 78 19 119/65 (83) 98 08/12/20 18:00 19 119/65 Mechanical Ventilator 40 08/12/20 17:00 77 22 130/67 (88) 99 08/12/20 17:00 22 130/67 Mechanical Ventilator 40 08/12/20 16:00 98.5 73 21 115/63 (80) 99 08/12/20 16:00 21 115/63 Mechanical Ventilator 40 08/12/20 16:00 Mechanical Ventilator 08/12/20 16:00 40 2/24/21 16:00 72 08/12/20 15:00 70 18 107/61 (76) 100 08/12/20 15:00 18 107/61 Mechanical Ventilator 40 08/12/20 14:50 78 20 99 Mechanical Ventilator 40 78 18 08/12/20 14:00 16 119/72 Mechanical Ventilator 40 08/12/20 14:00 72 21 114/66 (82) 99 08/12/20 13:00 16 129/68 Mechanical Ventilator 40 08/12/20 13:00 74 22 116/68 (84) 100 08/12/20 12:00 Mechanical Ventilator 08/12/20 12:00 18 127/61 Mechanical Ventilator 40 08/12/20 12:00 40 08/12/20 12:00 66 08/12/20 12:00 98.6 68 13 121/64 (83) 100 I&O Intake and Output 08/12/20 08/13/20 19:00 07:00 Intake Total 1895.000 ml 2519.700 ml Output Total 2200 ml 1850 ml Balance -305.000 ml 669.700 ml Free Water 70 ml 150 ml IV Total 1465.000 ml 1829.700 ml Tube Feeding 360 ml 360 ml Other 180 ml Output Urine Total 2200 ml 1850 ml Dressing: saturated Cardiovascular: RSR Respiratory: decreased breath sounds Abdomen: soft, distended, non-tender, decreased bowel sounds Extremities: no edema, no tenderness, no cyanosis Laboratory Tests Test 08/13/20 05:10 White Blood Count 17.7 K/UL (4.8-10.8) H Red Blood Count 3.25 M/UL (4.70-6.10) L Hemoglobin 8.8 G/DL (14.2-18.0) L Hematocrit 28.7 % (42.0-52.0) L Mean Corpuscular Volume 88 FL (80-99) Mean Corpuscular Hemoglobin 27.1 PG (27.0-31.0) Mean Corpuscular Hemoglobin Concent 30.7 G/DL (32.0-36.0) L Red Cell Distribution Width 13.8 % (11.6-14.8) Platelet Count 285 K/UL (150-450) Mean Platelet Volume 6.9 FL (6.5-10.1) Neutrophils (%) (Auto) % (45.0-75.0) Lymphocytes (%) (Auto) % (20.0-45.0) Monocytes (%) (Auto) % (1.0-10.0) Eosinophils (%) (Auto) % (0.0-3.0) Basophils (%) (Auto) % (0.0-2.0) Differential Total Cells Counted 100 Neutrophils % (Manual) 91 % (45-75) H Lymphocytes % (Manual) 5 % (20-45) L Monocytes % (Manual) 4 % (1-10) Eosinophils % (Manual) 0 % (0-3) Basophils % (Manual) 0 % (0-2) Band Neutrophils 0 % (0-8) Platelet Estimate Adequate Platelet Morphology Normal Hypochromasia 1+ Sodium Level 138 MMOL/L (136-145) Potassium Level 3.8 MMOL/L (3.5-5.1) Chloride Level 102 MMOL/L (98-107) Carbon Dioxide Level 34 MMOL/L (21-32) H Anion Gap 2 mmol/L (5-15) L Blood Urea Nitrogen 17 mg/dL (7-18) Creatinine 0.7 MG/DL (0.55-1.30) Estimat Glomerular Filtration Rate > 60 mL/min (>60) Glucose Level 140 MG/DL (74-106) H Calcium Level 8.6 MG/DL (8.5-10.1) Plan Problems: (1) Abdominal distension Assessment & Plan: 80M abdominal distention, respiratory decline, altered mental status. on exam noted abd soft, mild distended, non tender. no n/v/f/c. unlikely aspiration. non tender one exam. pending urine and covid test. no acute surgical intervention. hold on ct. kub ordered. will follow with exam and recs. keep npo for now. iv fluids. respiratory pulm support. will follow with recs thank you decline since admission now intubated ng tube to suction no acute surgical intervention cont abx kub noted wean vent enema when stable The rectum is considerably distended with stool. Considerable stool is also seen in the descending colon. The colon is diffusely gas filled, upper limits of normal in caliber. No significant small bowel gas demonstrated. No masses or unusual calcifications. The included lung bases demonstrate bilateral right greater than left pleural effusions. There is a Butler catheter Impression: Distended stool-filled rectum, fecal impaction possible Gas-filled upper limits of normal caliber colon, nonspecific Bilateral right greater than left pleural effusions (2) UTI (urinary tract infection) (3) Pneumonia (4) Multiple pulmonary nodules (5) Respiratory failure with hypoxia Assessment & Plan: cont weaning (6) Pneumonia due to COVID-19 virus (7) History of CVA (cerebrovascular accident) (8) COPD (chronic obstructive pulmonary disease) (9) HTN (hypertension) (10) Hx of prostatic malignancy (11) Major depression (12) Seizure disorder Destin Brown Aug 13, 2020 11:18
--- NOTE | 2020-08-13 13:53 | Diagnostic Imaging Report ---
Procedure: XRAY Chest 1v Reason for study: Shortness of breath. Comparison films: 08/11/2020. FINDINGS: Endotracheal tube, NG tube and right PICC line imaging in place. Vascularity is normal. Basilar infiltrates and small effusions are unchanged. Cardiac and mediastinal silhouette are within normal limits. The bony thorax appear unremarkable. IMPRESSION: NO SIGNIFICANT CHANGE COMPARED TO PREVIOUS EXAM.
--- NOTE | 2020-08-13 15:16 | NUR ---
NURSE NOTES: Dr. Nichole at bedside. Aware of today's WBC level.
--- NOTE | 2020-08-13 15:21 | Infectious Diseases Prog Note ---
Assessment/Plan Assessment/Plan ASSESSMENT AND PLAN: 1. aspiration pna/hcap, [place] blood culturues - ? contaminant vs bacteremia, uti, sepsis, shock, respiratory failure, vent sirs, leukocytosis, fevers mrsa colonization + femoral line -now patient with picc line covid-19 testing negative - vancomycin, cefepime and flagyl - day # 9/10 abx - f/u on labs and chest x-ray - icu care, vent care, bp support - off pressors - d/w RN at length (primary and charge nurse) - off pressors - leukocytosis likely secondary to steroids - clinically improved - cannot wean yet per RN 2. await COVID testing. Patient is in COVID isolation with history of COVID in the past. 3. Patient is on steroids. 4. If patient has COVID infection or new COVID infection, patient is a poor candidate for remdesivir because of respiratory failure, mechanical ventilation. Probably not very beneficial action in a patient like this. 5. Vent care per Pulmonary Medicine. 6. Blood pressure support. 7. Hypertension. 8. CHF. 9. COPD. 10. Prostate cancer. 11. Anemia. 12. CVA. 13. Aspiration risk. 14. Peripheral vascular disease. 15. GERD. 16. Seizures. 17. Depression. 18. History of COVID infection in February 2020. 19. Continue treatment per primary consultants. 20. Orders were noted and entered. 21. Skin care protocol. 22. Allergies to penicillin and phenytoin. 23. Social history is negative. 24. Family history is noncontributory. 25. MAR is noted. 26. Case was discussed with RN. Subjective Constitutional: Denies: fever HEENT: Reports: congestion Respiratory: Reports: shortness of breath Cardiovascular: Denies: chest pain Gastrointestinal/Abdominal: Denies: vomiting, diarrhea Genitourinary: Reports: other - no bee Neurologic: Reports: other - opens eyes Skin: Denies: rash Hematologic: Denies: bleeding Musculoskeletal: Reports: other - NA Allergies: Coded Allergies: PENICILLINS (Verified Allergy, Unknown, 03/10/20) PHENYTOIN (Verified Allergy, Unknown, 03/10/20) Objective Last 24 Hour Vital Signs Date Time Temp Pulse Resp B/P (MAP) Pulse Ox O2 Delivery O2 Flow Rate FiO2 08/13/20 14:24 93 27 40 2/25/21 14:00 80 22 115/75 (88) 96 08/13/20 13:00 84 19 125/74 (91) 97 08/13/20 12:00 98.5 84 19 122/73 (89) 97 08/13/20 12:00 Mechanical Ventilator 08/13/20 12:00 19 122/73 Mechanical Ventilator 40 08/13/20 12:00 40 08/13/20 11:45 69 18 40 08/13/20 11:30 85 20 136/88 (104) 98 08/13/20 11:18 89 08/13/20 11:15 94 24 149/80 (103) 97 08/13/20 11:00 24 154/81 Mechanical Ventilator 40 08/13/20 11:00 92 24 154/81 (105) 97 08/13/20 10:45 84 28 124/76 (92) 97 08/13/20 10:30 84 24 121/78 (92) 97 08/13/20 10:00 86 25 149/79 (102) 96 08/13/20 09:30 81 24 109/80 (90) 98 08/13/20 09:00 78 22 131/83 (99) 98 08/13/20 08:30 76 19 133/69 (90) 99 08/13/20 08:00 Mechanical Ventilator 08/13/20 08:00 40 08/13/20 08:00 98.0 83 26 148/75 (99) 94 08/13/20 07:40 65 08/13/20 07:30 65 18 108/73 (85) 99 08/13/20 07:20 74 20 99 40 74 24 08/13/20 07:00 75 19 92/65 (74) 99 08/13/20 07:00 20 105/56 Mechanical Ventilator 40 08/13/20 06:30 70 21 08/13/20 06:00 22 126/73 Mechanical Ventilator 40 08/13/20 06:00 76 13 115/59 (77) 08/13/20 05:00 22 126/73 Mechanical Ventilator 40 08/13/20 05:00 77 22 111/67 (82) 96 08/13/20 04:48 75 17 40 08/13/20 04:30 80 24 130/75 (93) 96 08/13/20 04:00 79 08/13/20 04:00 84 24 142/84 (103) 95 08/13/20 04:00 Mechanical Ventilator 08/13/20 04:00 23 130/75 Mechanical Ventilator 40 08/13/20 04:00 40 08/13/20 03:25 75 21 40 08/13/20 03:15 19 128/81 Mechanical Ventilator 10.0 40 08/13/20 03:14 20 116/67 Mechanical Ventilator 40 08/13/20 03:00 77 19 128/81 (97) 97 08/13/20 03:00 21 116/67 Mechanical Ventilator 40 08/13/20 02:00 81 24 116/76 (89) 97 08/13/20 02:00 20 107/74 Mechanical Ventilator 40 08/13/20 01:07 79 17 40 08/13/20 01:00 78 19 103/58 (73) 97 08/13/20 01:00 18 97/64 Mechanical Ventilator 40 08/13/20 00:30 101/58 08/13/20 00:00 86 08/13/20 00:00 40 08/13/20 00:00 Mechanical Ventilator 08/13/20 00:00 18 101/58 Mechanical Ventilator 40 08/13/20 00:00 82 08/13/20 00:00 98.5 80 15 101/58 (72) 97 08/12/20 23:00 18 101/54 Mechanical Ventilator 40 08/12/20 23:00 81 16 101/54 (70) 99 08/12/20 22:54 76 21 100 Mechanical Ventilator 40 79 22 08/12/20 22:00 81 19 112/57 (75) 97 08/12/20 22:00 17 97/65 Mechanical Ventilator 40 08/12/20 21:09 86 22 40 08/12/20 21:00 18 121/57 Mechanical Ventilator 40 08/12/20 21:00 81 14 115/66 (82) 97 08/12/20 20:00 21 117/65 Mechanical Ventilator 40 08/12/20 20:00 Mechanical Ventilator 08/12/20 20:00 40 08/12/20 20:00 98.7 83 20 117/65 (82) 96 08/12/20 19:07 87 28 40 08/12/20 19:00 27 147/96 Mechanical Ventilator 40 08/12/20 19:00 89 27 147/96 (113) 98 08/12/20 18:00 78 19 119/65 (83) 98 08/12/20 18:00 19 119/65 Mechanical Ventilator 40 08/12/20 17:00 77 22 130/67 (88) 99 08/12/20 17:00 22 130/67 Mechanical Ventilator 40 08/12/20 16:00 98.5 73 21 115/63 (80) 99 08/12/20 16:00 21 115/63 Mechanical Ventilator 40 08/12/20 16:00 Mechanical Ventilator 08/12/20 16:00 40 08/12/20 16:00 72 Height (Feet): 6 Height (Inches): 1.00 Weight (Pounds): 190 General Appearance: no acute distress HEENT: normocephalic, atraumatic, anicteric, no JVD, other - oral - inubated Respiratory/Chest: crackles/rales, rhonchi - bilaterally, other - on vent Cardiovascular: normal rate, regular rhythm Abdomen: normal bowel sounds, soft, non tender, no organomegaly, non distended Genitourinary: other - + bee Extremities: no cyanosis Skin: no rash, no lesions 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 Considerable right upper lobe atelectatic changes. COPD changes A few areas of atelectasis and possibly some consolidation is seen in the left lung Small right pleural fluid Evidence of old granulomatous disease 3 mm mm noncalcified nodule in the right middle lobe, not definitely evident previously. Recommend short interval 6 to 12 month follow-up CT scan Dilated right main pulmonary artery, indicative of pulmonary arterial hypertension Satisfactory endotracheal intubation Cholelithiasis Chest x-ray - 08/06/20 - Procedure: XRAY Chest 1v Indication: Abnormal chest sounds Technique: One view of the chest Comparison: 08/05/2020 Findings: Stable satisfactory the position of endotracheal tube. There is developing atelectasis in the right upper lung. There is persistent pleural fluid on the right and increasing parenchymal consolidation. Left lung pleural space remain clear. The heart size is normal Impression: Increasing right upper lobe atelectasis and right lung infiltrate. Unchanged right pleural effusion Chest x-ray - 08/09/20 Procedure: XRAY Chest 1v EXAM: XR Chest, 1 View CLINICAL HISTORY: INFECT TECHNIQUE: Frontal view of the chest. COMPARISON: Chest radiograph August 06, 2020. FINDINGS/IMPRESSION: Stable endotracheal tube. Opacity within the right lower lung field consistent with infiltrate, which is mild improving. Mild-moderate pleural effusion which is mildly worsening. No pneumothorax. The heart size is within normal limit. Calcified, tortuous aorta. Chest x-ray - 08/11/20 - IMPRESSION: No change in bibasilar infiltrate and small bilateral effusions. Endotracheal tube and NG tube remain in place. Chest x-ray - 08/13/20- Procedure: XRAY Chest 1v Procedure: XRAY Chest 1v Reason for study: Shortness of breath. Comparison films: 08/11/2020. FINDINGS: Endotracheal tube, NG tube and right PICC line imaging in place. Vascularity is normal. Basilar infiltrates and small effusions are unchanged. Cardiac and mediastinal silhouette are within normal limits. The bony thorax appear unremarkable. IMPRESSION: NO SIGNIFICANT CHANGE COMPARED TO PREVIOUS EXAM. Microbiology Date/Time Source Procedure Growth Status 08/07/20 04:00 Sputum Gram Stain - Final Complete 08/07/20 04:00 Sputum Sputum Culture - Final NO GROWTH AFTER 48 HOURS Complete 08/06/20 03:20 Blood Blood Culture - Final NO GROWTH AFTER 5 DAYS Complete 08/04/20 05:50 Rectum - Final NO CARBAPENEM-RESISTANT ENTEROBACTERI... Complete 08/03/20 19:41 Urine,Clean Catch Urine Culture - Final Mixed Gram Positive Organism Complete Laboratory Tests Test 08/13/20 05:10 08/13/20 09:34 White Blood Count 17.7 K/UL (4.8-10.8) H Red Blood Count 3.25 M/UL (4.70-6.10) L Hemoglobin 8.8 G/DL (14.2-18.0) L Hematocrit 28.7 % (42.0-52.0) L Mean Corpuscular Volume 88 FL (80-99) Mean Corpuscular Hemoglobin 27.1 PG (27.0-31.0) Mean Corpuscular Hemoglobin Concent 30.7 G/DL (32.0-36.0) L Red Cell Distribution Width 13.8 % (11.6-14.8) Platelet Count 285 K/UL (150-450) Mean Platelet Volume 6.9 FL (6.5-10.1) Neutrophils (%) (Auto) % (45.0-75.0) Lymphocytes (%) (Auto) % (20.0-45.0) Monocytes (%) (Auto) % (1.0-10.0) Eosinophils (%) (Auto) % (0.0-3.0) Basophils (%) (Auto) % (0.0-2.0) Differential Total Cells Counted 100 Neutrophils % (Manual) 91 % (45-75) H Lymphocytes % (Manual) 5 % (20-45) L Monocytes % (Manual) 4 % (1-10) Eosinophils % (Manual) 0 % (0-3) Basophils % (Manual) 0 % (0-2) Band Neutrophils 0 % (0-8) Platelet Estimate Adequate Platelet Morphology Normal Hypochromasia 1+ Sodium Level 138 MMOL/L (136-145) Potassium Level 3.8 MMOL/L (3.5-5.1) Chloride Level 102 MMOL/L (98-107) Carbon Dioxide Level 34 MMOL/L (21-32) H Anion Gap 2 mmol/L (5-15) L Blood Urea Nitrogen 17 mg/dL (7-18) Creatinine 0.7 MG/DL (0.55-1.30) Estimat Glomerular Filtration Rate > 60 mL/min (>60) Glucose Level 140 MG/DL (74-106) H Calcium Level 8.6 MG/DL (8.5-10.1) Arterial Blood pH 7.471 (7.350-7.450) Arterial Blood Partial Pressure CO2 47.8 mmHg (35.0-45.0) H Arterial Blood Partial Pressure O2 70.8 mmHg (75.0-100.0) L Arterial Blood HCO3 34.1 mmol/L (22.0-26.0) H Arterial Blood Oxygen Saturation 94.1 % (95-100) L Arterial Blood Base Excess 9.3 (-2-2) *H Chadwick Test Positive Current Medications Medications (Trade) Dose Ordered Sig/Armand Route PRN Reason Start Time Stop Time Status Last Admin Dose Admin Acetaminophen (Tylenol) 650 mg Q6H PRN NG Mild Pain (Pain Scale 1-3) 08/08/20 14:00 09/07/20 13:59 08/09/20 20:31 Acetaminophen (Tylenol) 650 mg Q6H PRN NG Temp >100.5 08/08/20 14:00 09/07/20 13:59 Albuterol/ Ipratropium (Albuterol/ Ipratropium) 3 ml Q4H PRN HHN Shortness of Breath 08/12/20 09:00 08/17/20 08:59 Albuterol/ Ipratropium (Albuterol/ Ipratropium) 3 ml Q8HRT HHN 08/12/20 09:00 08/17/20 08:59 08/13/20 07:20 Cefepime HCl 2 gm/ Dextrose 110 ml @ 220 mls/hr EVERY 12 HOURS IV 08/05/20 21:00 08/18/20 23:59 08/13/20 09:02 Chlorhexidine Gluconate (Maddie-Hex 2%) 1 applic DAILY@2000 TOPIC 08/07/20 20:00 11/05/20 19:59 08/12/20 20:09 Dextrose/Sodium Chloride 1,000 ml @ 75 mls/hr [id number] IV 08/06/20 11:00 09/05/20 10:59 08/13/20 13:29 Docusate Sodium (Colace) 100 mg EVERY 12 HOURS NG 08/13/20 21:00 09/11/20 17:59 Enoxaparin Sodium (Lovenox) 60 mg EVERY 12 HOURS SUBQ 08/05/20 21:00 11/03/20 20:59 08/13/20 09:03 Famotidine (Pepcid I.v.) 20 mg Q12HR IVP 08/06/20 11:00 09/05/20 10:59 08/13/20 09:04 Fentanyl Citrate 250 ml @ 0 mls/hr Q24H PRN IV . 08/13/20 04:00 08/15/20 03:59 08/13/20 03:15 Gabapentin (Neurontin) 300 mg EVERY 8 HOURS NG 08/08/20 22:00 09/04/20 08:59 08/13/20 13:31 Methylprednisolone Sodium Succinate (Solu-MEDROL) 40 mg EVERY 6 HOURS IVP 08/05/20 12:00 11/03/20 11:59 08/13/20 12:03 Metronidazole 100 ml @ 100 mls/hr Q8HR IVPB 08/09/20 22:00 08/16/20 21:59 08/13/20 13:36 Norepinephrine Bitartrate 250 ml @ 0 mls/hr Q24H IV 08/12/20 00:30 08/15/20 00:21 08/12/20 00:59 Polyethylene Glycol (Miralax) 17 gm BEDTIME ORAL 08/12/20 21:00 09/11/20 20:59 08/12/20 20:10 Vancomycin HCl 250 ml @ 166.667 mls/hr Q8HR@0400,1200,2000 IVPB 08/08/20 20:00 08/16/20 23:59 08/13/20 12:03 Vancomycin HCl ([facility] pharmacy to dose) 1 ea DAILY PRN MISC Per rx protocol 08/04/20 09:15 09/03/20 09:14 Kemar Nichole MD Aug 13, 2020 15:21
[2020-08-13] MEDS: Acetaminophen 650mg/20.3ml NG PRN (17:02)
--- NOTE | 2020-08-13 17:13 | NUR ---
NURSE NOTES: Dr. Womack at bedside, covering MD for Dr. Saul.
--- NOTE | 2020-08-13 17:29 | General Progress Note ---
Subjective Date patient seen: Aug 13, 2020 Time patient seen: 16:00 ROS Limited/Unobtainable: Yes Allergies: Coded Allergies: PENICILLINS (Verified Allergy, Unknown, 03/10/20) PHENYTOIN (Verified Allergy, Unknown, 03/10/20) Subjective No complains. Intubated. Awake. Objective Last 24 Hour Vital Signs Date Time Temp Pulse Resp B/P (MAP) Pulse Ox O2 Delivery O2 Flow Rate FiO2 08/13/20 16:00 40 08/13/20 16:00 Mechanical Ventilator 08/13/20 16:00 91 20 132/73 (92) 100 08/13/20 15:55 93 08/13/20 15:30 88 22 136/83 (100) 100 08/13/20 15:00 77 17 104/65 (78) 97 08/13/20 14:24 76 16 100 Mechanical Ventilator 40 77 18 08/13/20 14:00 80 22 115/75 (88) 96 08/13/20 13:00 84 19 125/74 (91) 97 08/13/20 12:00 98.5 84 19 122/73 (89) 97 08/13/20 12:00 Mechanical Ventilator 08/13/20 12:00 19 122/73 Mechanical Ventilator 40 08/13/20 12:00 40 08/13/20 11:45 69 18 40 08/13/20 11:30 85 20 136/88 (104) 98 08/13/20 11:18 89 08/13/20 11:15 94 24 149/80 (103) 97 08/13/20 11:00 24 154/81 Mechanical Ventilator 40 08/13/20 11:00 92 24 154/81 (105) 97 08/13/20 10:45 84 28 124/76 (92) 97 08/13/20 10:30 84 24 121/78 (92) 97 08/13/20 10:00 86 25 149/79 (102) 96 08/13/20 09:30 81 24 109/80 (90) 98 08/13/20 09:00 78 22 131/83 (99) 98 08/13/20 08:30 76 19 133/69 (90) 99 08/13/20 08:00 Mechanical Ventilator 08/13/20 08:00 40 08/13/20 08:00 98.0 83 26 148/75 (99) 94 08/13/20 07:40 65 08/13/20 07:30 65 18 108/73 (85) 99 08/13/20 07:20 74 20 99 40 74 24 08/13/20 07:00 75 19 92/65 (74) 99 08/13/20 07:00 20 105/56 Mechanical Ventilator 40 08/13/20 06:30 70 21 08/13/20 06:00 22 126/73 Mechanical Ventilator 40 08/13/20 06:00 76 13 115/59 (77) 08/13/20 05:00 22 126/73 Mechanical Ventilator 40 08/13/20 05:00 77 22 111/67 (82) 96 08/13/20 04:48 75 17 40 08/13/20 04:30 80 24 130/75 (93) 96 08/13/20 04:00 79 08/13/20 04:00 84 24 142/84 (103) 95 08/13/20 04:00 Mechanical Ventilator 08/13/20 04:00 23 130/75 Mechanical Ventilator 40 08/13/20 04:00 40 08/13/20 03:25 75 21 40 08/13/20 03:15 19 128/81 Mechanical Ventilator 10.0 40 08/13/20 03:14 20 116/67 Mechanical Ventilator 40 08/13/20 03:00 77 19 128/81 (97) 97 08/13/20 03:00 21 116/67 Mechanical Ventilator 40 08/13/20 02:00 81 24 116/76 (89) 97 08/13/20 02:00 20 107/74 Mechanical Ventilator 40 08/13/20 01:07 79 17 40 08/13/20 01:00 78 19 103/58 (73) 97 08/13/20 01:00 18 97/64 Mechanical Ventilator 40 08/13/20 00:30 101/58 08/13/20 00:00 86 08/13/20 00:00 40 08/13/20 00:00 Mechanical Ventilator 08/13/20 00:00 18 101/58 Mechanical Ventilator 40 08/13/20 00:00 82 08/13/20 00:00 98.5 80 15 101/58 (72) 97 08/12/20 23:00 18 101/54 Mechanical Ventilator 40 08/12/20 23:00 81 16 101/54 (70) 99 08/12/20 22:54 76 21 100 Mechanical Ventilator 40 79 22 08/12/20 22:00 81 19 112/57 (75) 97 08/12/20 22:00 17 97/65 Mechanical Ventilator 40 08/12/20 21:09 86 22 40 08/12/20 21:00 18 121/57 Mechanical Ventilator 40 08/12/20 21:00 81 14 115/66 (82) 97 08/12/20 20:00 21 117/65 Mechanical Ventilator 40 08/12/20 20:00 Mechanical Ventilator 08/12/20 20:00 40 08/12/20 20:00 98.7 83 20 117/65 (82) 96 08/12/20 19:07 87 28 40 08/12/20 19:00 27 147/96 Mechanical Ventilator 40 08/12/20 19:00 89 27 147/96 (113) 98 08/12/20 18:00 78 19 119/65 (83) 98 08/12/20 18:00 19 119/65 Mechanical Ventilator 40 Intake and Output 08/12/20 08/13/20 19:00 07:00 Intake Total 1895.000 ml 2519.700 ml Output Total 2200 ml 1850 ml Balance -305.000 ml 669.700 ml Free Water 70 ml 150 ml IV Total 1465.000 ml 1829.700 ml Tube Feeding 360 ml 360 ml Other 180 ml Output Urine Total 2200 ml 1850 ml Laboratory Tests 08/13/20 05:10: White Blood Count 17.7H, Red Blood Count 3.25L, Hemoglobin 8.8L, Hematocrit 28.7L, Mean Corpuscular Volume 88, Mean Corpuscular Hemoglobin 27.1, Mean Corpuscular Hemoglobin Concent 30.7L, Red Cell Distribution Width 13.8, Platelet Count 285, Mean Platelet Volume 6.9, Neutrophils (%) (Auto) , Lymphocytes (%) (Auto) , Monocytes (%) (Auto) , Eosinophils (%) (Auto) , Basophils (%) (Auto) , Differential Total Cells Counted 100, Neutrophils % (Manual) 91H, Lymphocytes % (Manual) 5L, Monocytes % (Manual) 4, Eosinophils % (Manual) 0, Basophils % (Manual) 0, Band Neutrophils 0, Platelet Estimate Adequate, Platelet Morphology Normal, Hypochromasia 1+, Sodium Level 138, Potassium Level 3.8, Chloride Level 102, Carbon Dioxide Level 34H, Anion Gap 2L, Blood Urea Nitrogen 17, Creatinine 0.7, Estimat Glomerular Filtration Rate > 60, Glucose Level 140H, Calcium Level 8.6 08/13/20 09:34: Arterial Blood pH 7.471H, Arterial Blood Partial Pressure CO2 47.8H, Arterial Blood Partial Pressure O2 70.8L, Arterial Blood HCO3 34.1H, Arterial Blood Oxygen Saturation 94.1L, Arterial Blood Base Excess 9.3*H, Chadwick Test Positive Height (Feet): 6 Height (Inches): 1.00 Weight (Pounds): 190 General Appearance: WD/WN EENT: PERRL/EOMI Neck: non-tender Cardiovascular: normal rate Respiratory/Chest: lungs clear Abdomen: non tender Extremities: normal range of motion Edema: trace edema 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 contaminant vs bacteremia, uti, sepsis, shock, respiratory failure, vent sirs, leukocytosis, fevers mrsa colonization + femoral line -now patient with picc line in the RUE covid-19 testing negative ID consultation in place: - vancomycin, cefepime and flagyl - day # 02/26 abx - f/u on labs and chest x-ray - icu care, vent care, bp support - off pressors - d/w RN at length and he failed weaning trial today. - off pressors - leukocytosis likely secondary to steroids # Vent care per Pulmonary Medicine. He needs daily trials to wean off vs TRACH in the near future. # Hypertension. # CHF. # COPD. # Prostate cancer. # Anemia. # CVA. # Peripheral vascular disease. # GERD. # Seizures. # Depression. # PRIOR COVID infection in February 2020. # Skin care protocol. FULL CODE Beth Womack MD Aug 13, 2020 17:29
--- NOTE | 2020-08-13 19:13 | NUR ---
RESPIRATORY NOTE: Received pt on AC VC 16, 500VT, 40%, PEEP +5. Pt is intubated w/ ETT 7.5 @ 23cm lipline, secured by anchorfast. Pt is lightly sedated, but is arousable & follows commands. B/S vinod. clear/diminished, sxn small amounts of thick/thin/frothy, heard-brown secretions w/ occasional blood clots. Vent plugged into red outlet, ambubag at bedside. Pt resting comfortably, in no apparent distress at this time. Will continue to monitor pt.
--- NOTE | 2020-08-13 19:28 | NUR ---
NURSE HAND-OFF REPORT: Latest Vital Signs: Temperature 98.0 , Pulse 79 , B/P 104 /61 , Respiratory Rate 19 , O2 SAT 100 , Mechanical Ventilator, O2 Flow Rate . Vital Sign Comment: RASS -2 EKG Rhythm: Sinus Rhythm Rhythm change?: N Latest Castro Fall Score: 50 Fall Risk: High Risk Safety Measures: Call light Within Reach, Bed Alarm Zone 2, Side Rails Side Rails x2, Bed position Low and Locked. Fall Precautions: Yellow Socks Yellow Gown Door Sign Patient Fall Education Contact isolation endorsed Report given to Cailin Colon RN.
--- NOTE | 2020-08-13 19:28 | NUR ---
Received report from ION Rivera and assumed care of patient.
[2020-08-13] MEDS: Dyna-Hex 2% Top Sol 2oz TOPIC SCH (20:01)
[2020-08-13] MEDS: Miralax 17gm pkt ORAL SCH (20:02)
--- NOTE | 2020-08-13 20:30 | NUR ---
Assessment completed. Pt shivering so +artifact on environmental monitoring specialist. Checked temperature axillary and was 97.7 so brought the patient 2 blankets and placed on him for comfort. Pt denies pain or anxiety. Watching basketball on television per his request. Pt VSS. Will continue to monitor.
--- NOTE | 2020-08-13 22:00 | NUR ---
Patient in NAD, sleeping at this time. VSS, will continue to monitor.
[2020-08-14] VITALS (51 sets, daily range): BP systolic 63–160; BP diastolic 38–110
--- NOTE | 2020-08-14 | NUR ---
Midnight assessment completed. Pt sleeping, awakens easily to noise in the room. Pt in NAD. Repositioned and oral care provided. Will continue to monitor.
[2020-08-14] MEDS: Norepinephrine 4mg/NS Premix 250 ML IV SCH (00:30)
[2020-08-14] MEDS: Solu-MEDROL 40mg Inj IVP SCH ×4 (01:25→17:33)
--- NOTE | 2020-08-14 02:35 | NUR ---
Called Dr. Womack on cell phone to report hypotension in patient. SBP in 80's for last couple of hours but stable, pt now in 60's Systolic. Per Dr. Womack administer 500ml Albumin 5% and if BP is not better within 1 hour, restart levophed gtt to maintain SBP>90; MAP>65.
--- NOTE | 2020-08-14 04:30 | NUR ---
Complete bath and linen chaqnge performed on patient. Patient wet under body on pad, but could not identify source except that patient has been diaphoretic. Patient penis is very edematous and appears abnormal in appearance. When attempting to pull foreskin back to perform Butler care discharge came out that was thick and white in appearance. Cleansed as able, however, feel this should be assessed by Physician. Lifted penis and made a hammock out of a pillow case to alleviate discomfort. Patient only states painful when asked. Denies normal pain in penis. Affirmatively nods it is unusual to have this pain in his penis. Pt repositioned, oral care provided and VSS (B/P) post Albumin. Pt normothermic. Will continue to monitor.
[2020-08-14] MEDS: Vancomycin 1.25gm/250ml Premix IVPB SCH ×3 (04:54→19:55)
[2020-08-14] MEDS: D5 1/2NS 1,000 ML IV SCH ×2 (04:55→19:00)
[2020-08-14 05:53] LABS: ALANINE AMINOTRANSFERASE 36 U/L (12-78); ALBUMIN 2.3 G/DL (3.4-5.0); ALBUMIN/GLOBULIN RATIO 0.9 (1.0-2.7); ALKALINE PHOSPHATASE 41 U/L (46-116); ANION GAP 3 mmol/L (5-15); ASPARTATE AMINO TRANSFERASE 27 U/L (15-37); BILIRUBIN,TOTAL 0.2 MG/DL (0.2-1.0); BLOOD UREA NITROGEN 16 mg/dL (7-18); CALCIUM 8.4 MG/DL (8.5-10.1); CARBON DIOXIDE 34 MMOL/L (21-32); CHLORIDE 102 MMOL/L (98-107); CREATININE 0.8 MG/DL (0.55-1.30); PHOSPHORUS 3.3 MG/DL (2.5-4.9); POTASSIUM 3.6 MMOL/L (3.5-5.1); SODIUM 139 MMOL/L (136-145)
--- NOTE | 2020-08-14 06:15 | NUR ---
R UA PICC line dressing was wet. Changed dressing using sterile technique. Attempted to flush and draw back on line and unable to do so via the red port. The purple port was very difficult to flush and very sluggish to draw back. This is not changed from the report given prior. Recommend removal or manipulation of R PICC line for it to work properly so that R femoral TLC can be removed. Pt repositioned, oral care provided, and VSS. Will continue to monitor.
[2020-08-14] MEDS: Gabapentin 300 MG/6 ML Soln NG SCH ×3 (06:20→22:23)
--- NOTE | 2020-08-14 07:16 | NUR ---
Report given to ION Loza who assumed care of patient.
[2020-08-14] MEDS: fentaNYL 2500mcg/NS 250ml 250 ML IV PRN (07:55)
[2020-08-14] MEDS: Albuterol/Ipratropium 3ml neb HHN SCH ×3 (08:26→23:14)
[2020-08-14 09:42] LABS: HEMOGLOBIN 7.7 G/DL (14.2-18.0); MEAN CORPUSCULAR VOLUME 89 FL (80-99); PLATELET COUNT 257 K/UL (150-450); RED CELL DISTRIBUTION WIDTH 14.7 % (11.6-14.8); WHITE BLOOD COUNT 12.2 K/UL (4.8-10.8)
--- NOTE | 2020-08-14 10:38 | Pulmonology Progress Note ---
Subjective ROS Limited/Unobtainable: Yes Interval Events: Intubated 08/05/20 Constitutional: Denies: fever HEENT: Repors: no symptoms Respiratory: Reports: shortness of breath Cardiovascular: Reports: no symptoms Gastrointestinal/Abdominal: Denies: vomiting, diarrhea Genitourinary: Reports: no symptoms Neurologic: Reports: no symptoms Psychiatric: Reports: other - NA Skin: Denies: rash Musculoskeletal: Reports: other - NA Allergies: Coded Allergies: PENICILLINS (Verified Allergy, Unknown, 03/10/20) PHENYTOIN (Verified Allergy, Unknown, 03/10/20) Objective Last 24 Hour Vital Signs Date Time Temp Pulse Resp B/P (MAP) Pulse Ox O2 Delivery O2 Flow Rate FiO2 08/14/20 07:55 19 96/53 Mechanical Ventilator 40 08/14/20 07:35 68 16 100 Mechanical Ventilator 40 72 20 40 08/14/20 06:30 70 16 08/14/20 06:00 84 21 102/84 (90) 100 08/14/20 06:00 16 98/61 Mechanical Ventilator 40 08/14/20 05:30 79 16 96/51 (66) 100 08/14/20 05:14 81 17 40 08/14/20 05:00 89 22 111/59 (76) 100 08/14/20 05:00 16 112/62 Mechanical Ventilator 40 08/14/20 04:30 88 21 112/62 (79) 100 08/14/20 04:00 65 08/14/20 04:00 16 96/51 Mechanical Ventilator 40 08/14/20 04:00 40 08/14/20 04:00 Mechanical Ventilator 08/14/20 04:00 97.6 71 16 90/49 (63) 100 08/14/20 03:30 79 18 123/62 (82) 100 08/14/20 03:25 88 19 40 08/14/20 03:12 0 110/81 (91) 97 08/14/20 03:02 65 6 83/47 (59) 100 08/14/20 03:00 16 83/47 Mechanical Ventilator 40 08/14/20 03:00 66 16 73/53 (60) 100 08/14/20 02:30 68 16 63/38 (46) 100 08/14/20 02:23 74 16 85/52 (63) 100 08/14/20 02:00 16 85/52 Mechanical Ventilator 40 08/14/20 02:00 74 16 86/47 (60) 100 08/14/20 01:30 73 16 88/63 (71) 100 08/14/20 01:00 88 20 109/55 (73) 100 08/14/20 01:00 16 82/49 Mechanical Ventilator 40 08/14/20 00:52 75 16 89/57 (68) 100 08/14/20 00:49 80 16 40 08/14/20 00:30 112/62 08/14/20 00:30 78 16 82/49 (60) 100 08/14/20 00:00 79 08/14/20 00:00 Mechanical Ventilator 08/14/20 00:00 16 117/65 Mechanical Ventilator 40 08/14/20 00:00 98.3 77 17 93/65 (74) 100 08/14/20 00:00 40 08/13/20 23:30 87 16 117/65 (82) 100 08/13/20 23:00 85 9 118/74 (89) 100 08/13/20 23:00 16 97/72 Mechanical Ventilator 40 08/13/20 22:48 77 16 100 Mechanical Ventilator 40 79 16 40 08/13/20 22:30 80 17 97/72 (80) 100 08/13/20 22:00 16 97/72 Mechanical Ventilator 40 08/13/20 22:00 0 96/68 (77) 100 08/13/20 21:45 78 17 40 08/13/20 21:30 78 17 103/63 (76) 100 08/13/20 21:00 16 103/63 Mechanical Ventilator 40 08/13/20 21:00 80 19 105/64 (78) 100 08/13/20 20:30 97.7 76 8 133/73 (93) 100 08/13/20 20:00 71 08/13/20 20:00 40 08/13/20 20:00 20 133/73 Mechanical Ventilator 40 08/13/20 20:00 Mechanical Ventilator 08/13/20 20:00 80 11 121/81 (94) 100 08/13/20 19:45 73 16 126/68 (87) 100 08/13/20 19:30 79 19 104/61 (75) 100 08/13/20 19:10 79 18 40 08/13/20 19:00 73 16 114/69 (84) 100 08/13/20 19:00 16 114/69 Mechanical Ventilator 40 08/13/20 18:00 82 18 118/100 (106) 100 08/13/20 18:00 18 118/100 Mechanical Ventilator 40 08/13/20 17:30 77 18 109/68 (82) 100 08/13/20 17:00 19 118/67 Mechanical Ventilator 40 08/13/20 17:00 78 19 118/67 (84) 100 08/13/20 16:00 40 08/13/20 16:00 Mechanical Ventilator 08/13/20 16:00 20 132/73 Mechanical Ventilator 40 08/13/20 16:00 98.0 91 20 132/73 (92) 100 08/13/20 15:55 93 08/13/20 15:30 88 22 136/83 (100) 100 08/13/20 15:00 77 17 104/65 (78) 97 08/13/20 15:00 17 104/65 Mechanical Ventilator 40 08/13/20 14:24 76 16 100 Mechanical Ventilator 40 77 18 08/13/20 14:00 22 115/75 Mechanical Ventilator 40 08/13/20 14:00 80 22 115/75 (88) 96 08/13/20 13:00 84 19 125/74 (91) 97 08/13/20 13:00 19 125/74 Mechanical Ventilator 40 08/13/20 12:00 98.5 84 19 122/73 (89) 97 08/13/20 12:00 Mechanical Ventilator 08/13/20 12:00 19 122/73 Mechanical Ventilator 40 08/13/20 12:00 40 08/13/20 11:45 69 18 40 08/13/20 11:30 85 20 136/88 (104) 98 08/13/20 11:18 89 08/13/20 11:15 94 24 149/80 (103) 97 08/13/20 11:00 24 154/81 Mechanical Ventilator 40 08/13/20 11:00 92 24 154/81 (105) 97 08/13/20 10:45 84 28 124/76 (92) 97 Intake and Output 08/13/20 08/14/20 19:00 07:00 Intake Total 1874.080 ml 1355.0 ml Output Total 1280 ml 1305 ml Balance 594.080 ml 50.0 ml Free Water 100 ml IV Total 1514.080 ml 925.0 ml Tube Feeding 360 ml 330 ml Output Urine Total 1280 ml 1305 ml General Appearance: no acute distress HEENT: normocephalic Respiratory: chest wall non-tender, lungs clear Cardiovascular: normal peripheral pulses, normal rate Abdomen: normal bowel sounds Extremities: no cyanosis Laboratory Tests 08/13/20 18:40: Vancomycin Level Trough 18.6H 08/14/20 04:00: White Blood Count 12.2H, Red Blood Count 2.80L, Hemoglobin 7.7L, Hematocrit 25.0L, Mean Corpuscular Volume 89, Mean Corpuscular Hemoglobin 27.7, Mean Corpuscular Hemoglobin Concent 31.0L, Red Cell Distribution Width 14.7, Platelet Count 257, Mean Platelet Volume 6.5, Neutrophils (%) (Auto) , Lymphocytes (%) (Auto) , Monocytes (%) (Auto) , Eosinophils (%) (Auto) , Basophils (%) (Auto) , Neutrophils % (Manual) [Pending], Lymphocytes % (Manual) [Pending], Platelet Estimate [Pending], Platelet Morphology [Pending], Sodium Level 139, Potassium Level 3.6, Chloride Level 102, Carbon Dioxide Level 34H, Anion Gap 3L, Blood Urea Nitrogen 16, Creatinine 0.8, Estimat Glomerular Filtration Rate > 60, Glucose Level 137H, Calcium Level 8.4L, Phosphorus Level 3.3, Magnesium Level 1.9, Total Bilirubin 0.2, Aspartate Amino Transf (AST/SGOT) 27, Alanine Aminotransferase (ALT/SGPT) 36, Alkaline Phosphatase 41L, C-Reactive Protein, Quantitative 0.9, Pro-B-Type Natriuretic Peptide 276H, Total Protein 5.0L, Albumin 2.3L, Globulin 2.7, Albumin/Globulin Ratio 0.9L 08/14/20 07:59: Arterial Blood pH 7.472H, Arterial Blood Partial Pressure CO2 44.8, Arterial Blood Partial Pressure O2 81.4, Arterial Blood HCO3 32.0H, Arterial Blood Oxygen Saturation 95.3, Arterial Blood Base Excess 7.6H, Chadwick Test Positive Current Medications Medications (Trade) Dose Ordered Sig/Armand Route PRN Reason Start Time Stop Time Status Last Admin Dose Admin Acetaminophen (Tylenol) 650 mg Q6H PRN NG Mild Pain (Pain Scale 1-3) 08/08/20 14:00 09/07/20 13:59 08/13/20 17:02 Acetaminophen (Tylenol) 650 mg Q6H PRN NG Temp >100.5 08/08/20 14:00 09/07/20 13:59 Albuterol/ Ipratropium (Albuterol/ Ipratropium) 3 ml Q4H PRN HHN Shortness of Breath 08/12/20 09:00 08/17/20 08:59 Albuterol/ Ipratropium (Albuterol/ Ipratropium) 3 ml Q8HRT HHN 08/12/20 09:00 08/17/20 08:59 08/14/20 08:26 Cefepime HCl 2 gm/ Dextrose 110 ml @ 220 mls/hr EVERY 12 HOURS IV 08/05/20 21:00 08/18/20 23:59 08/13/20 20:02 Chlorhexidine Gluconate (Maddie-Hex 2%) 1 applic DAILY@2000 TOPIC 08/07/20 20:00 11/05/20 19:59 08/13/20 20:01 Dextrose/Sodium Chloride 1,000 ml @ 75 mls/hr [id number] IV 08/06/20 11:00 09/05/20 10:59 08/14/20 04:55 Docusate Sodium (Colace) 100 mg EVERY 12 HOURS NG 08/13/20 21:00 09/11/20 17:59 08/13/20 20:06 Enoxaparin Sodium (Lovenox) 60 mg EVERY 12 HOURS SUBQ 08/05/20 21:00 11/03/20 20:59 08/13/20 20:03 Famotidine (Pepcid I.v.) 20 mg Q12HR IVP 08/06/20 11:00 09/05/20 10:59 08/13/20 20:02 Fentanyl Citrate 250 ml @ 0 mls/hr Q24H PRN IV . 08/13/20 04:00 08/15/20 03:59 08/14/20 07:55 Gabapentin (Neurontin) 300 mg EVERY 8 HOURS NG 08/08/20 22:00 09/04/20 08:59 08/14/20 06:20 Methylprednisolone Sodium Succinate (Solu-MEDROL) 40 mg EVERY 6 HOURS IVP 08/05/20 12:00 11/03/20 11:59 08/14/20 06:20 Metronidazole 100 ml @ 100 mls/hr Q8HR IVPB 08/09/20 22:00 08/16/20 21:59 08/14/20 06:20 Norepinephrine Bitartrate 250 ml @ 0 mls/hr Q24H IV 08/12/20 00:30 08/15/20 00:21 08/12/20 00:59 Polyethylene Glycol (Miralax) 17 gm BEDTIME ORAL 08/12/20 21:00 09/11/20 20:59 08/13/20 20:02 Vancomycin HCl 250 ml @ 166.667 mls/hr Q8HR@0400,1200,2000 IVPB 08/08/20 20:00 08/16/20 23:59 08/14/20 04:54 Vancomycin HCl ([facility] pharmacy to dose) 1 ea DAILY PRN MISC Per rx protocol 08/04/20 09:15 09/03/20 09:14 Assessment/Plan Assessment/Plan 1. UTI -On empiric antibiotics -Follow-up UCx negative (08/03) 2. Pneumonia -On broad-spectrum antibiotics - CXR concerning for volume loss; reviewed chest CT - CT chest shows dense RUL and RML consolidation - High suspicion for RBI narrowing ; no obvious endobronchial narrowing noted on bronchoscopy 3. COPD exacerbation -Now intubated 4. Respiratory distress - Continue steroids 5. History of seizures -Risk of aspiration -Monitor for seizure activity 6. Elevated CRP -D-dimer wnl -His outpatient medications include Eliquis (hx of A fib?) - Continue Eliquis 7. Monitor carefully in ICU S/p intubation On Levophed; low dose;n Continue AC mode; will continue weaning FiO2 90->80 ->40% PEEP 5 Will attempt to extubate Weaning well Micha Schneider MD Aug 14, 2020 10:38
[2020-08-14] MEDS: Docusate 100mg/10ml Liq NG SCH ×2 (10:44→19:56)
[2020-08-14] MEDS: Cefepime 2gm/D5W 110ml IV SCH ×4 (10:44→19:57)
[2020-08-14] MEDS: Enoxaparin 60mg Inj SUBQ SCH ×2 (10:45→19:57)
--- NOTE | 2020-08-14 10:59 | Diagnostic Imaging Report ---
Procedure: XRAY Chest 1v Reason for study: Reason For Exam: SOB Comparison films: 08/13/2020. FINDINGS: Radiograph is underexposed. Endotracheal tube and NG tube remain in place . Bilateral infiltrates and small effusions unchanged. Cardiac and mediastinal silhouette are within normal limits. The bony thorax appear unremarkable. IMPRESSION: NO SIGNIFICANT CHANGE COMPARED TO PREVIOUS EXAM.
--- NOTE | 2020-08-14 11:59 | Nephrology Progress Note ---
Assessment/Plan Problem List: (1) Oliguria (2) Electrolyte imbalance (3) Pneumonia (4) Respiratory failure with hypoxia (5) Pneumonia due to COVID-19 virus (6) Seizure disorder (7) Anemia Assessment Sepsis, respiratory failure Pneumonia and possible aspiration. Questionable COVID-19 infection UTI Abnormal electrolytes Questionable CHF Anemia Plan August 14: Status unchanged. Remains full code, intubated, on ventilator, FiO2 of 40%. Labs reviewed. Renal parameters stable. Hemoglobin lower. Suggest transfusion. August 13: Status quo. Remains full code, intubated, on FiO2 of 40%. Labs reviewed. Renal parameters stable. Continue per consultants. August 12: Intubated on ventilator. FiO2 40% unchanged. Full code. Labs reviewed. Renal parameters stable. Continue per consultants. August 11: Intubated on ventilator. O2 40%. Full code. Medication list reviewed. Labs reviewed. Stable from renal standpoint of view. Continue per consultants. August 10: Status quo. Intubated on ventilator. FiO2 remains 40%. Renal parameters stable. Continue per current management. Potassium and phosphorus supplement given August 09: Full code. Intubated on ventilator. FiO2 40%. Labs reviewed. Stable from renal standpoint of view. August 08: Labs reviewed. Renal parameters stable. Abnormal electrolytes addressed. Remains full code. FiO2 50%. Continue per consultants. Discussed with RN. August 07: Labs reviewed. K Phos IV given. Patient intubated. Full code. FiO2 60%. Medication list reviewed. Continue per consultants. Previously: Optimize pulmonary status Optimize cardiac status Monitor renal parameters, urine output, electrolytes Change IV to half-normal saline Anemia mansfield Insert NG tube and start feeding Per orders Subjective ROS Limited/Unobtainable: Yes Objective Objective Last 24 Hour Vital Signs Date Time Temp Pulse Resp B/P (MAP) Pulse Ox O2 Delivery O2 Flow Rate FiO2 08/14/20 07:55 19 96/53 Mechanical Ventilator 40 08/14/20 07:35 68 16 100 Mechanical Ventilator 40 72 20 40 08/14/20 06:30 70 16 08/14/20 06:00 84 21 102/84 (90) 100 08/14/20 06:00 16 98/61 Mechanical Ventilator 40 08/14/20 05:30 79 16 96/51 (66) 100 08/14/20 05:14 81 17 40 08/14/20 05:00 89 22 111/59 (76) 100 08/14/20 05:00 16 112/62 Mechanical Ventilator 40 08/14/20 04:30 88 21 112/62 (79) 100 08/14/20 04:00 65 08/14/20 04:00 16 96/51 Mechanical Ventilator 40 08/14/20 04:00 40 08/14/20 04:00 Mechanical Ventilator 08/14/20 04:00 97.6 71 16 90/49 (63) 100 08/14/20 03:30 79 18 123/62 (82) 100 08/14/20 03:25 88 19 40 08/14/20 03:12 0 110/81 (91) 97 08/14/20 03:02 65 6 83/47 (59) 100 08/14/20 03:00 16 83/47 Mechanical Ventilator 40 08/14/20 03:00 66 16 73/53 (60) 100 08/14/20 02:30 68 16 63/38 (46) 100 08/14/20 02:23 74 16 85/52 (63) 100 08/14/20 02:00 16 85/52 Mechanical Ventilator 40 08/14/20 02:00 74 16 86/47 (60) 100 08/14/20 01:30 73 16 88/63 (71) 100 08/14/20 01:00 88 20 109/55 (73) 100 08/14/20 01:00 16 82/49 Mechanical Ventilator 40 08/14/20 00:52 75 16 89/57 (68) 100 08/14/20 00:49 80 16 40 08/14/20 00:30 112/62 08/14/20 00:30 78 16 82/49 (60) 100 08/14/20 00:00 79 08/14/20 00:00 Mechanical Ventilator 08/14/20 00:00 16 117/65 Mechanical Ventilator 40 08/14/20 00:00 98.3 77 17 93/65 (74) 100 08/14/20 00:00 40 08/13/20 23:30 87 16 117/65 (82) 100 08/13/20 23:00 85 9 118/74 (89) 100 08/13/20 23:00 16 97/72 Mechanical Ventilator 40 08/13/20 22:48 77 16 100 Mechanical Ventilator 40 79 16 40 08/13/20 22:30 80 17 97/72 (80) 100 08/13/20 22:00 16 97/72 Mechanical Ventilator 40 08/13/20 22:00 0 96/68 (77) 100 08/13/20 21:45 78 17 40 08/13/20 21:30 78 17 103/63 (76) 100 08/13/20 21:00 16 103/63 Mechanical Ventilator 40 08/13/20 21:00 80 19 105/64 (78) 100 08/13/20 20:30 97.7 76 8 133/73 (93) 100 08/13/20 20:00 71 08/13/20 20:00 40 08/13/20 20:00 20 133/73 Mechanical Ventilator 40 08/13/20 20:00 Mechanical Ventilator 08/13/20 20:00 80 11 121/81 (94) 100 08/13/20 19:45 73 16 126/68 (87) 100 08/13/20 19:30 79 19 104/61 (75) 100 08/13/20 19:10 79 18 40 08/13/20 19:00 73 16 114/69 (84) 100 08/13/20 19:00 16 114/69 Mechanical Ventilator 40 08/13/20 18:00 82 18 118/100 (106) 100 08/13/20 18:00 18 118/100 Mechanical Ventilator 40 08/13/20 17:30 77 18 109/68 (82) 100 08/13/20 17:00 19 118/67 Mechanical Ventilator 40 08/13/20 17:00 78 19 118/67 (84) 100 08/13/20 16:00 40 08/13/20 16:00 Mechanical Ventilator 08/13/20 16:00 20 132/73 Mechanical Ventilator 40 08/13/20 16:00 98.0 91 20 132/73 (92) 100 08/13/20 15:55 93 08/13/20 15:30 88 22 136/83 (100) 100 08/13/20 15:00 77 17 104/65 (78) 97 08/13/20 15:00 17 104/65 Mechanical Ventilator 40 08/13/20 14:24 76 16 100 Mechanical Ventilator 40 77 18 08/13/20 14:00 22 115/75 Mechanical Ventilator 40 08/13/20 14:00 80 22 115/75 (88) 96 2/25/21 13:00 84 19 125/74 (91) 97 08/13/20 13:00 19 125/74 Mechanical Ventilator 40 08/13/20 12:00 98.5 84 19 122/73 (89) 97 08/13/20 12:00 Mechanical Ventilator 08/13/20 12:00 19 122/73 Mechanical Ventilator 40 08/13/20 12:00 40 l Intake and Output 08/13/20 08/14/20 19:00 07:00 Intake Total 1874.080 ml 1355.0 ml Output Total 1280 ml 1305 ml Balance 594.080 ml 50.0 ml Free Water 100 ml IV Total 1514.080 ml 925.0 ml Tube Feeding 360 ml 330 ml Output Urine Total 1280 ml 1305 ml Current Medications Medications (Trade) Dose Ordered Sig/Armand Route PRN Reason Start Time Stop Time Status Last Admin Dose Admin Acetaminophen (Tylenol) 650 mg Q6H PRN NG Mild Pain (Pain Scale 1-3) 08/08/20 14:00 09/07/20 13:59 08/13/20 17:02 Acetaminophen (Tylenol) 650 mg Q6H PRN NG Temp >100.5 08/08/20 14:00 09/07/20 13:59 Albuterol/ Ipratropium (Albuterol/ Ipratropium) 3 ml Q4H PRN HHN Shortness of Breath 08/12/20 09:00 08/17/20 08:59 Albuterol/ Ipratropium (Albuterol/ Ipratropium) 3 ml Q8HRT HHN 08/12/20 09:00 08/17/20 08:59 08/14/20 08:26 Cefepime HCl 2 gm/ Dextrose 110 ml @ 220 mls/hr EVERY 12 HOURS IV 08/05/20 21:00 08/18/20 23:59 08/14/20 10:44 Chlorhexidine Gluconate (Maddie-Hex 2%) 1 applic DAILY@2000 TOPIC 08/07/20 20:00 11/05/20 19:59 08/13/20 20:01 Dextrose/Sodium Chloride 1,000 ml @ 75 mls/hr [id number] IV 08/06/20 11:00 09/05/20 10:59 08/14/20 04:55 Docusate Sodium (Colace) 100 mg EVERY 12 HOURS NG 08/13/20 21:00 09/11/20 17:59 08/14/20 10:44 Enoxaparin Sodium (Lovenox) 60 mg EVERY 12 HOURS SUBQ 08/05/20 21:00 11/03/20 20:59 08/14/20 10:45 Famotidine (Pepcid I.v.) 20 mg Q12HR IVP 08/06/20 11:00 09/05/20 10:59 08/14/20 10:44 Fentanyl Citrate 250 ml @ 0 mls/hr Q24H PRN IV . 08/13/20 04:00 08/15/20 03:59 08/14/20 07:55 Gabapentin (Neurontin) 300 mg EVERY 8 HOURS NG 08/08/20 22:00 09/04/20 08:59 08/14/20 06:20 Methylprednisolone Sodium Succinate (Solu-MEDROL) 40 mg EVERY 6 HOURS IVP 08/05/20 12:00 11/03/20 11:59 08/14/20 06:20 Metronidazole 100 ml @ 100 mls/hr Q8HR IVPB 08/09/20 22:00 08/16/20 21:59 08/14/20 06:20 Norepinephrine Bitartrate 250 ml @ 0 mls/hr Q24H IV 08/12/20 00:30 08/15/20 00:21 08/12/20 00:59 Polyethylene Glycol (Miralax) 17 gm BEDTIME ORAL 08/12/20 21:00 09/11/20 20:59 08/13/20 20:02 Vancomycin HCl 250 ml @ 166.667 mls/hr Q8HR@0400,1200,2000 IVPB 08/08/20 20:00 08/16/20 23:59 08/14/20 04:54 Vancomycin HCl ([facility] pharmacy to dose) 1 ea DAILY PRN MISC Per rx protocol 08/04/20 09:15 09/03/20 09:14 Laboratory Tests 08/13/20 18:40: Vancomycin Level Trough 18.6H 08/14/20 04:00: White Blood Count 12.2H, Red Blood Count 2.80L, Hemoglobin 7.7L, Hematocrit 25.0L, Mean Corpuscular Volume 89, Mean Corpuscular Hemoglobin 27.7, Mean Corpuscular Hemoglobin Concent 31.0L, Red Cell Distribution Width 14.7, Platelet Count 257, Mean Platelet Volume 6.5, Neutrophils (%) (Auto) , Lymphocytes (%) (Auto) , Monocytes (%) (Auto) , Eosinophils (%) (Auto) , Basophils (%) (Auto) , Differential Total Cells Counted 100, Neutrophils % (Manual) 92H, Lymphocytes % (Manual) 3L, Monocytes % (Manual) 5, Eosinophils % (Manual) 0, Basophils % (Manual) 0, Band Neutrophils 0, Platelet Estimate Adequate, Platelet Morphology Normal, Hypochromasia 1+, Anisocytosis 1+, Schistocytes Occasional, Sodium Level 139, Potassium Level 3.6, Chloride Level 102, Carbon Dioxide Level 34H, Anion Gap 3L, Blood Urea Nitrogen 16, Creatinine 0.8, Estimat Glomerular Filtration Rate > 60, Glucose Level 137H, Calcium Level 8.4L, Phosphorus Level 3.3, Magnesium Level 1.9, Total Bilirubin 0.2, Aspartate Amino Transf (AST/SGOT) 27, Alanine Aminotransferase (ALT/SGPT) 36, Alkaline Phosphatase 41L, C-Reactive Protein, Quantitative 0.9, Pro-B-Type Natriuretic Peptide 276H, Total Protein 5.0L, Albumin 2.3L, Globulin 2.7, Albumin/Globulin Ratio 0.9L 08/14/20 07:59: Arterial Blood pH 7.472H, Arterial Blood Partial Pressure CO2 44.8, Arterial Blood Partial Pressure O2 81.4, Arterial Blood HCO3 32.0H, Arterial Blood Oxygen Saturation 95.3, Arterial Blood Base Excess 7.6H, Chadwick Test Positive Height (Feet): 6 Height (Inches): 1.00 Weight (Pounds): 190 General Appearance: no apparent distress EENT: other - Intubated on ventilator Cardiovascular: normal rate Respiratory/Chest: decreased breath sounds Abdomen: distended Aashish Burgess MD Aug 14, 2020 11:59
--- NOTE | 2020-08-14 12:29 | NUR ---
RADIOLOGY DEPT., CHEST X-RAY DONE.-P.DYE
[2020-08-14] MEDS ORDERED: Cathflo Alteplase 2mg Inj INJ SCH (15:15)
--- NOTE | 2020-08-14 15:36 | Cardiac Electrophysiology PN ---
Assessment/Plan Assessment/Plan 1. Respiratory failure. On the Vent and IV antibiotic. Extubated today Echocardiogram showed EF 50% 2. Questionable congestive heart failure. EF normal and BNP is only 39. 3. Septic shock off Levo 4. History of COVID pneumonia, status post vaccination for COVID. Currently on IV antibiotic and prednisone. Now off isolation 5. Questionable history of atrial fibrillation versus DVT. The patient is on Eliquis 2.5 mg b.i.d. Currently in SR 6. Full Code Subjective Subjective In ICU just extubated. OGT in place In SR. Off restraints off fentanyl drip Off pressors Objective Last 24 Hour Vital Signs Date Time Temp Pulse Resp B/P (MAP) Pulse Ox O2 Delivery O2 Flow Rate FiO2 08/14/20 10:00 24 130/66 Mechanical Ventilator 40 08/14/20 09:00 25 114/66 Mechanical Ventilator 40 08/14/20 08:00 22 107/53 Mechanical Ventilator 40 08/14/20 07:55 19 96/53 Mechanical Ventilator 40 08/14/20 07:35 68 16 100 Mechanical Ventilator 40 72 20 40 08/14/20 07:00 16 95/49 Mechanical Ventilator 40 08/14/20 06:30 70 16 08/14/20 06:00 84 21 102/84 (90) 100 08/14/20 06:00 16 98/61 Mechanical Ventilator 40 08/14/20 05:30 79 16 96/51 (66) 100 08/14/20 05:14 81 17 40 08/14/20 05:00 89 22 111/59 (76) 100 08/14/20 05:00 16 112/62 Mechanical Ventilator 40 08/14/20 04:30 88 21 112/62 (79) 100 08/14/20 04:00 65 08/14/20 04:00 16 96/51 Mechanical Ventilator 40 08/14/20 04:00 40 08/14/20 04:00 Mechanical Ventilator 08/14/20 04:00 97.6 71 16 90/49 (63) 100 08/14/20 03:30 79 18 123/62 (82) 100 08/14/20 03:25 88 19 40 08/14/20 03:12 0 110/81 (91) 97 08/14/20 03:02 65 6 83/47 (59) 100 08/14/20 03:00 16 83/47 Mechanical Ventilator 40 08/14/20 03:00 66 16 73/53 (60) 100 08/14/20 02:30 68 16 63/38 (46) 100 08/14/20 02:23 74 16 85/52 (63) 100 08/14/20 02:00 16 85/52 Mechanical Ventilator 40 08/14/20 02:00 74 16 86/47 (60) 100 08/14/20 01:30 73 16 88/63 (71) 100 08/14/20 01:00 88 20 109/55 (73) 100 08/14/20 01:00 16 82/49 Mechanical Ventilator 40 08/14/20 00:52 75 16 89/57 (68) 100 08/14/20 00:49 80 16 40 08/14/20 00:30 112/62 08/14/20 00:30 78 16 82/49 (60) 100 08/14/20 00:00 79 08/14/20 00:00 Mechanical Ventilator 08/14/20 00:00 16 117/65 Mechanical Ventilator 40 08/14/20 00:00 98.3 77 17 93/65 (74) 100 08/14/20 00:00 40 08/13/20 23:30 87 16 117/65 (82) 100 08/13/20 23:00 85 9 118/74 (89) 100 08/13/20 23:00 16 97/72 Mechanical Ventilator 40 08/13/20 22:48 77 16 100 Mechanical Ventilator 40 79 16 40 08/13/20 22:30 80 17 97/72 (80) 100 08/13/20 22:00 16 97/72 Mechanical Ventilator 40 08/13/20 22:00 0 96/68 (77) 100 08/13/20 21:45 78 17 40 08/13/20 21:30 78 17 103/63 (76) 100 08/13/20 21:00 16 103/63 Mechanical Ventilator 40 08/13/20 21:00 80 19 105/64 (78) 100 08/13/20 20:30 97.7 76 8 133/73 (93) 100 08/13/20 20:00 71 08/13/20 20:00 40 08/13/20 20:00 20 133/73 Mechanical Ventilator 40 08/13/20 20:00 Mechanical Ventilator 08/13/20 20:00 80 11 121/81 (94) 100 08/13/20 19:45 73 16 126/68 (87) 100 08/13/20 19:30 79 19 104/61 (75) 100 08/13/20 19:10 79 18 40 08/13/20 19:00 73 16 114/69 (84) 100 08/13/20 19:00 16 114/69 Mechanical Ventilator 40 08/13/20 18:00 82 18 118/100 (106) 100 08/13/20 18:00 18 118/100 Mechanical Ventilator 40 08/13/20 17:30 77 18 109/68 (82) 100 08/13/20 17:00 19 118/67 Mechanical Ventilator 40 08/13/20 17:00 78 19 118/67 (84) 100 08/13/20 16:00 40 08/13/20 16:00 Mechanical Ventilator 08/13/20 16:00 20 132/73 Mechanical Ventilator 40 08/13/20 16:00 98.0 91 20 132/73 (92) 100 08/13/20 15:55 93 Intake and Output 08/13/20 08/14/20 19:00 07:00 Intake Total 1874.080 ml 1537.5 ml Output Total 1280 ml 1305 ml Balance 594.080 ml 232.5 ml Free Water 100 ml IV Total 1514.080 ml 1107.5 ml Tube Feeding 360 ml 330 ml Output Urine Total 1280 ml 1305 ml Laboratory Tests Test 08/13/20 18:40 08/14/20 04:00 08/14/20 07:59 Vancomycin Level Trough 18.6 ug/mL (5.0-12.0) H White Blood Count 12.2 K/UL (4.8-10.8) H Red Blood Count 2.80 M/UL (4.70-6.10) L Hemoglobin 7.7 G/DL (14.2-18.0) L Hematocrit 25.0 % (42.0-52.0) L Mean Corpuscular Volume 89 FL (80-99) Mean Corpuscular Hemoglobin 27.7 PG (27.0-31.0) Mean Corpuscular Hemoglobin Concent 31.0 G/DL (32.0-36.0) L Red Cell Distribution Width 14.7 % (11.6-14.8) Platelet Count 257 K/UL (150-450) Mean Platelet Volume 6.5 FL (6.5-10.1) Neutrophils (%) (Auto) % (45.0-75.0) Lymphocytes (%) (Auto) % (20.0-45.0) Monocytes (%) (Auto) % (1.0-10.0) Eosinophils (%) (Auto) % (0.0-3.0) Basophils (%) (Auto) % (0.0-2.0) Differential Total Cells Counted 100 Neutrophils % (Manual) 92 % (45-75) H Lymphocytes % (Manual) 3 % (20-45) L Monocytes % (Manual) 5 % (1-10) Eosinophils % (Manual) 0 % (0-3) Basophils % (Manual) 0 % (0-2) Band Neutrophils 0 % (0-8) Platelet Estimate Adequate Platelet Morphology Normal Hypochromasia 1+ Anisocytosis 1+ Schistocytes Occasional Sodium Level 139 MMOL/L (136-145) Potassium Level 3.6 MMOL/L (3.5-5.1) Chloride Level 102 MMOL/L (98-107) Carbon Dioxide Level 34 MMOL/L (21-32) H Anion Gap 3 mmol/L (5-15) L Blood Urea Nitrogen 16 mg/dL (7-18) Creatinine 0.8 MG/DL (0.55-1.30) Estimat Glomerular Filtration Rate > 60 mL/min (>60) Glucose Level 137 MG/DL (74-106) H Calcium Level 8.4 MG/DL (8.5-10.1) L Phosphorus Level 3.3 MG/DL (2.5-4.9) Magnesium Level 1.9 MG/DL (1.8-2.4) Total Bilirubin 0.2 MG/DL (0.2-1.0) Aspartate Amino Transf (AST/SGOT) 27 U/L (15-37) Alanine Aminotransferase (ALT/SGPT) 36 U/L (12-78) Alkaline Phosphatase 41 U/L (46-116) L C-Reactive Protein, Quantitative 0.9 mg/dL (0.00-0.90) Pro-B-Type Natriuretic Peptide 276 pg/mL (0-125) H Total Protein 5.0 G/DL (6.4-8.2) L Albumin 2.3 G/DL (3.4-5.0) L Globulin 2.7 g/dL Albumin/Globulin Ratio 0.9 (1.0-2.7) L Arterial Blood pH 7.472 (7.350-7.450) Arterial Blood Partial Pressure CO2 44.8 mmHg (35.0-45.0) Arterial Blood Partial Pressure O2 81.4 mmHg (75.0-100.0) Arterial Blood HCO3 32.0 mmol/L (22.0-26.0) H Arterial Blood Oxygen Saturation 95.3 % (95-100) Arterial Blood Base Excess 7.6 (-2-2) H Chadwick Test Positive Objective HEAD AND NECK: Extubated LUNGS: Coarse rhonchi. CARDIOVASCULAR: Regular S1 and S2 with no gallop. ABDOMEN: Soft. EXTREMITIES: 1 plus pitting edema. Devyn Magdaleno MD Aug 14, 2020 15:36
--- NOTE | 2020-08-14 15:49 | General Progress Note ---
Subjective Date patient seen: Aug 14, 2020 Time patient seen: 17:00 ROS Limited/Unobtainable: Yes Allergies: Coded Allergies: PENICILLINS (Verified Allergy, Unknown, 03/10/20) PHENYTOIN (Verified Allergy, Unknown, 03/10/20) Subjective No complains. extubated today. Awake. Objective Last 24 Hour Vital Signs Date Time Temp Pulse Resp B/P (MAP) Pulse Ox O2 Delivery O2 Flow Rate FiO2 08/14/20 10:00 24 130/66 Mechanical Ventilator 40 08/14/20 09:00 25 114/66 Mechanical Ventilator 40 08/14/20 08:00 22 107/53 Mechanical Ventilator 40 08/14/20 07:55 19 96/53 Mechanical Ventilator 40 08/14/20 07:35 68 16 100 Mechanical Ventilator 40 72 20 40 08/14/20 07:00 16 95/49 Mechanical Ventilator 40 08/14/20 06:30 70 16 08/14/20 06:00 84 21 102/84 (90) 100 08/14/20 06:00 16 98/61 Mechanical Ventilator 40 08/14/20 05:30 79 16 96/51 (66) 100 08/14/20 05:14 81 17 40 08/14/20 05:00 89 22 111/59 (76) 100 08/14/20 05:00 16 112/62 Mechanical Ventilator 40 08/14/20 04:30 88 21 112/62 (79) 100 08/14/20 04:00 65 08/14/20 04:00 16 96/51 Mechanical Ventilator 40 08/14/20 04:00 40 08/14/20 04:00 Mechanical Ventilator 08/14/20 04:00 97.6 71 16 90/49 (63) 100 08/14/20 03:30 79 18 123/62 (82) 100 08/14/20 03:25 88 19 40 08/14/20 03:12 0 110/81 (91) 97 08/14/20 03:02 65 6 83/47 (59) 100 08/14/20 03:00 16 83/47 Mechanical Ventilator 40 08/14/20 03:00 66 16 73/53 (60) 100 08/14/20 02:30 68 16 63/38 (46) 100 08/14/20 02:23 74 16 85/52 (63) 100 08/14/20 02:00 16 85/52 Mechanical Ventilator 40 08/14/20 02:00 74 16 86/47 (60) 100 08/14/20 01:30 73 16 88/63 (71) 100 08/14/20 01:00 88 20 109/55 (73) 100 08/14/20 01:00 16 82/49 Mechanical Ventilator 40 08/14/20 00:52 75 16 89/57 (68) 100 08/14/20 00:49 80 16 40 08/14/20 00:30 112/62 08/14/20 00:30 78 16 82/49 (60) 100 08/14/20 00:00 79 08/14/20 00:00 Mechanical Ventilator 08/14/20 00:00 16 117/65 Mechanical Ventilator 40 08/14/20 00:00 98.3 77 17 93/65 (74) 100 08/14/20 00:00 40 08/13/20 23:30 87 16 117/65 (82) 100 08/13/20 23:00 85 9 118/74 (89) 100 08/13/20 23:00 16 97/72 Mechanical Ventilator 40 08/13/20 22:48 77 16 100 Mechanical Ventilator 40 79 16 40 08/13/20 22:30 80 17 97/72 (80) 100 08/13/20 22:00 16 97/72 Mechanical Ventilator 40 08/13/20 22:00 0 96/68 (77) 100 08/13/20 21:45 78 17 40 08/13/20 21:30 78 17 103/63 (76) 100 08/13/20 21:00 16 103/63 Mechanical Ventilator 40 08/13/20 21:00 80 19 105/64 (78) 100 08/13/20 20:30 97.7 76 8 133/73 (93) 100 08/13/20 20:00 71 08/13/20 20:00 40 08/13/20 20:00 20 133/73 Mechanical Ventilator 40 08/13/20 20:00 Mechanical Ventilator 08/13/20 20:00 80 11 121/81 (94) 100 08/13/20 19:45 73 16 126/68 (87) 100 08/13/20 19:30 79 19 104/61 (75) 100 08/13/20 19:10 79 18 40 08/13/20 19:00 73 16 114/69 (84) 100 08/13/20 19:00 16 114/69 Mechanical Ventilator 40 08/13/20 18:00 82 18 118/100 (106) 100 08/13/20 18:00 18 118/100 Mechanical Ventilator 40 08/13/20 17:30 77 18 109/68 (82) 100 08/13/20 17:00 19 118/67 Mechanical Ventilator 40 08/13/20 17:00 78 19 118/67 (84) 100 08/13/20 16:00 40 08/13/20 16:00 Mechanical Ventilator 08/13/20 16:00 20 132/73 Mechanical Ventilator 40 08/13/20 16:00 98.0 91 20 132/73 (92) 100 08/13/20 15:55 93 Intake and Output 08/13/20 08/14/20 19:00 07:00 Intake Total 1874.080 ml 1537.5 ml Output Total 1280 ml 1305 ml Balance 594.080 ml 232.5 ml Free Water 100 ml IV Total 1514.080 ml 1107.5 ml Tube Feeding 360 ml 330 ml Output Urine Total 1280 ml 1305 ml Laboratory Tests 08/13/20 18:40: Vancomycin Level Trough 18.6H 08/14/20 04:00: White Blood Count 12.2H, Red Blood Count 2.80L, Hemoglobin 7.7L, Hematocrit 25.0L, Mean Corpuscular Volume 89, Mean Corpuscular Hemoglobin 27.7, Mean Corpuscular Hemoglobin Concent 31.0L, Red Cell Distribution Width 14.7, Platelet Count 257, Mean Platelet Volume 6.5, Neutrophils (%) (Auto) , Lymphocytes (%) (Auto) , Monocytes (%) (Auto) , Eosinophils (%) (Auto) , Basophils (%) (Auto) , Differential Total Cells Counted 100, Neutrophils % (Manual) 92H, Lymphocytes % (Manual) 3L, Monocytes % (Manual) 5, Eosinophils % (Manual) 0, Basophils % (Manual) 0, Band Neutrophils 0, Platelet Estimate Adequate, Platelet Morphology Normal, Hypochromasia 1+, Anisocytosis 1+, Schistocytes Occasional, Sodium Level 139, Potassium Level 3.6, Chloride Level 102, Carbon Dioxide Level 34H, Anion Gap 3L, Blood Urea Nitrogen 16, Creatinine 0.8, Estimat Glomerular Filtration Rate > 60, Glucose Level 137H, Calcium Level 8.4L, Phosphorus Level 3.3, Magnesium Level 1.9, Total Bilirubin 0.2, Aspartate Amino Transf (AST/SGOT) 27, Alanine Aminotransferase (ALT/SGPT) 36, Alkaline Phosphatase 41L, C-Reactive Protein, Quantitative 0.9, Pro-B-Type Natriuretic Peptide 276H, Total Protein 5.0L, Albumin 2.3L, Globulin 2.7, Albumin/Globulin Ratio 0.9L 08/14/20 07:59: Arterial Blood pH 7.472H, Arterial Blood Partial Pressure CO2 44.8, Arterial Blood Partial Pressure O2 81.4, Arterial Blood HCO3 32.0H, Arterial Blood Oxygen Saturation 95.3, Arterial Blood Base Excess 7.6H, Chadwick Test Positive Height (Feet): 6 Height (Inches): 1.00 Weight (Pounds): 190 General Appearance: WD/WN EENT: PERRL/EOMI Cardiovascular: normal rate Respiratory/Chest: lungs clear Abdomen: non tender Extremities: normal range of motion Edema: trace edema 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 contaminant vs bacteremia, uti, sepsis, shock, respiratory failure, vent sirs, leukocytosis, fevers mrsa colonization + femoral line -now patient with picc line in the RUE covid-19 testing negative ID consultation in place: - vancomycin, cefepime and flagyl - day # 02/26 abx - f/u on labs and chest x-ray - icu care, vent care, bp support - off pressors - d/w RN at length and he failed weaning trial today. - off pressors - leukocytosis likely secondary to steroids # Vent care per Pulmonary Medicine. He needs daily trials to wean off vs TRACH in the near future. # Hypertension. # CHF. # COPD. # Prostate cancer. # Anemia. # CVA. # Peripheral vascular disease. # GERD. # Seizures. # Depression. # PRIOR COVID infection in February 2020. # Skin care protocol. # PT evaluation ordered and bedside RN swallowing evaluation. FULL CODE Beth Womack MD Aug 14, 2020 15:49
--- NOTE | 2020-08-14 17:24 | Surgery Progress Note ---
Surgery Progress Note Subjective Symptoms: improved Additional Comments plan extubate Objective Last 24 Hour Vital Signs Date Time Temp Pulse Resp B/P (MAP) Pulse Ox O2 Delivery O2 Flow Rate FiO2 08/14/20 15:45 79 27 100 Venturi Mask 14.0 55 77 25 99 08/14/20 11:35 Venturi Mask 14.0 55 08/14/20 11:35 76 28 98 Venturi Mask 15.0 55 08/14/20 10:00 24 130/66 Mechanical Ventilator 40 08/14/20 09:00 25 114/66 Mechanical Ventilator 40 08/14/20 08:26 40 08/14/20 08:00 22 107/53 Mechanical Ventilator 40 08/14/20 07:55 19 96/53 Mechanical Ventilator 40 08/14/20 07:35 68 16 100 Mechanical Ventilator 40 72 20 40 08/14/20 07:00 16 95/49 Mechanical Ventilator 40 08/14/20 06:30 70 16 08/14/20 06:00 84 21 102/84 (90) 100 08/14/20 06:00 16 98/61 Mechanical Ventilator 40 08/14/20 05:30 79 16 96/51 (66) 100 08/14/20 05:14 81 17 40 08/14/20 05:00 89 22 111/59 (76) 100 08/14/20 05:00 16 112/62 Mechanical Ventilator 40 08/14/20 04:30 88 21 112/62 (79) 100 08/14/20 04:00 65 08/14/20 04:00 16 96/51 Mechanical Ventilator 40 08/14/20 04:00 40 08/14/20 04:00 Mechanical Ventilator 08/14/20 04:00 97.6 71 16 90/49 (63) 100 08/14/20 03:30 79 18 123/62 (82) 100 08/14/20 03:25 88 19 40 08/14/20 03:12 0 110/81 (91) 97 08/14/20 03:02 65 6 83/47 (59) 100 08/14/20 03:00 16 83/47 Mechanical Ventilator 40 08/14/20 03:00 66 16 73/53 (60) 100 08/14/20 02:30 68 16 63/38 (46) 100 08/14/20 02:23 74 16 85/52 (63) 100 08/14/20 02:00 16 85/52 Mechanical Ventilator 40 08/14/20 02:00 74 16 86/47 (60) 100 08/14/20 01:30 73 16 88/63 (71) 100 08/14/20 01:00 88 20 109/55 (73) 100 08/14/20 01:00 16 82/49 Mechanical Ventilator 40 08/14/20 00:52 75 16 89/57 (68) 100 08/14/20 00:49 80 16 40 08/14/20 00:30 112/62 08/14/20 00:30 78 16 82/49 (60) 100 08/14/20 00:00 79 08/14/20 00:00 Mechanical Ventilator 08/14/20 00:00 16 117/65 Mechanical Ventilator 40 08/14/20 00:00 98.3 77 17 93/65 (74) 100 08/14/20 00:00 40 08/13/20 23:30 87 16 117/65 (82) 100 08/13/20 23:00 85 9 118/74 (89) 100 08/13/20 23:00 16 97/72 Mechanical Ventilator 40 08/13/20 22:48 77 16 100 Mechanical Ventilator 40 79 16 40 08/13/20 22:30 80 17 97/72 (80) 100 08/13/20 22:00 16 97/72 Mechanical Ventilator 40 08/13/20 22:00 0 96/68 (77) 100 08/13/20 21:45 78 17 40 08/13/20 21:30 78 17 103/63 (76) 100 08/13/20 21:00 16 103/63 Mechanical Ventilator 40 08/13/20 21:00 80 19 105/64 (78) 100 08/13/20 20:30 97.7 76 8 133/73 (93) 100 08/13/20 20:00 71 08/13/20 20:00 40 08/13/20 20:00 20 133/73 Mechanical Ventilator 40 08/13/20 20:00 Mechanical Ventilator 08/13/20 20:00 80 11 121/81 (94) 100 08/13/20 19:45 73 16 126/68 (87) 100 08/13/20 19:30 79 19 104/61 (75) 100 08/13/20 19:10 79 18 40 08/13/20 19:00 73 16 114/69 (84) 100 08/13/20 19:00 16 114/69 Mechanical Ventilator 40 08/13/20 18:00 82 18 118/100 (106) 100 08/13/20 18:00 18 118/100 Mechanical Ventilator 40 08/13/20 17:30 77 18 109/68 (82) 100 I&O Intake and Output 08/13/20 08/14/20 19:00 07:00 Intake Total 1874.080 ml 1537.5 ml Output Total 1280 ml 1305 ml Balance 594.080 ml 232.5 ml Free Water 100 ml IV Total 1514.080 ml 1107.5 ml Tube Feeding 360 ml 330 ml Output Urine Total 1280 ml 1305 ml Dressing: dry Wound: clean Cardiovascular: RSR Respiratory: clear Abdomen: soft, flat, non-tender, present bowel sounds, non-distended Extremities: no edema, no tenderness, no cyanosis Laboratory Tests Test 08/13/20 18:40 08/14/20 04:00 08/14/20 07:59 Vancomycin Level Trough 18.6 ug/mL (5.0-12.0) H White Blood Count 12.2 K/UL (4.8-10.8) H Red Blood Count 2.80 M/UL (4.70-6.10) L Hemoglobin 7.7 G/DL (14.2-18.0) L Hematocrit 25.0 % (42.0-52.0) L Mean Corpuscular Volume 89 FL (80-99) Mean Corpuscular Hemoglobin 27.7 PG (27.0-31.0) Mean Corpuscular Hemoglobin Concent 31.0 G/DL (32.0-36.0) L Red Cell Distribution Width 14.7 % (11.6-14.8) Platelet Count 257 K/UL (150-450) Mean Platelet Volume 6.5 FL (6.5-10.1) Neutrophils (%) (Auto) % (45.0-75.0) Lymphocytes (%) (Auto) % (20.0-45.0) Monocytes (%) (Auto) % (1.0-10.0) Eosinophils (%) (Auto) % (0.0-3.0) Basophils (%) (Auto) % (0.0-2.0) Differential Total Cells Counted 100 Neutrophils % (Manual) 92 % (45-75) H Lymphocytes % (Manual) 3 % (20-45) L Monocytes % (Manual) 5 % (1-10) Eosinophils % (Manual) 0 % (0-3) Basophils % (Manual) 0 % (0-2) Band Neutrophils 0 % (0-8) Platelet Estimate Adequate Platelet Morphology Normal Hypochromasia 1+ Anisocytosis 1+ Schistocytes Occasional Sodium Level 139 MMOL/L (136-145) Potassium Level 3.6 MMOL/L (3.5-5.1) Chloride Level 102 MMOL/L (98-107) Carbon Dioxide Level 34 MMOL/L (21-32) H Anion Gap 3 mmol/L (5-15) L Blood Urea Nitrogen 16 mg/dL (7-18) Creatinine 0.8 MG/DL (0.55-1.30) Estimat Glomerular Filtration Rate > 60 mL/min (>60) Glucose Level 137 MG/DL (74-106) H Calcium Level 8.4 MG/DL (8.5-10.1) L Phosphorus Level 3.3 MG/DL (2.5-4.9) Magnesium Level 1.9 MG/DL (1.8-2.4) Total Bilirubin 0.2 MG/DL (0.2-1.0) Aspartate Amino Transf (AST/SGOT) 27 U/L (15-37) Alanine Aminotransferase (ALT/SGPT) 36 U/L (12-78) Alkaline Phosphatase 41 U/L (46-116) L C-Reactive Protein, Quantitative 0.9 mg/dL (0.00-0.90) Pro-B-Type Natriuretic Peptide 276 pg/mL (0-125) H Total Protein 5.0 G/DL (6.4-8.2) L Albumin 2.3 G/DL (3.4-5.0) L Globulin 2.7 g/dL Albumin/Globulin Ratio 0.9 (1.0-2.7) L Arterial Blood pH 7.472 (7.350-7.450) Arterial Blood Partial Pressure CO2 44.8 mmHg (35.0-45.0) Arterial Blood Partial Pressure O2 81.4 mmHg (75.0-100.0) Arterial Blood HCO3 32.0 mmol/L (22.0-26.0) H Arterial Blood Oxygen Saturation 95.3 % (95-100) Arterial Blood Base Excess 7.6 (-2-2) H Chadwick Test Positive Plan Problems: (1) Abdominal distension Assessment & Plan: 79M abdominal distention, respiratory decline, altered mental status. on exam noted abd soft, mild distended, non tender. no n/v/f/c. unlikely aspiration. non tender one exam. pending urine and covid test. no acute surgical intervention. hold on ct. kub ordered. will follow with exam and recs. keep npo for now. iv fluids. respiratory pulm support. will follow with recs thank you decline since admission now intubated ng tube to suction no acute surgical intervention cont abx kub noted wean vent enema when stable The rectum is considerably distended with stool. Considerable stool is also seen in the descending colon. The colon is diffusely gas filled, upper limits of normal in caliber. No significant small bowel gas demonstrated. No masses or unusual calcifications. The included lung bases demonstrate bilateral right greater than left pleural effusions. There is a Butler catheter Impression: Distended stool-filled rectum, fecal impaction possible Gas-filled upper limits of normal caliber colon, nonspecific Bilateral right greater than left pleural effusions (2) UTI (urinary tract infection) (3) Pneumonia (4) Multiple pulmonary nodules (5) Respiratory failure with hypoxia Assessment & Plan: cont weaning (6) Pneumonia due to COVID-19 virus (7) History of CVA (cerebrovascular accident) (8) COPD (chronic obstructive pulmonary disease) (9) HTN (hypertension) (10) Hx of prostatic malignancy (11) Major depression (12) Seizure disorder Destin Brown Aug 14, 2020 17:24
[2020-08-14] MEDS ORDERED: Varibar Pudding 230ml MC PRN (18:45)
[2020-08-14] MEDS ORDERED: Varibar Nectar 240ml MC PRN (18:45)
[2020-08-14] MEDS ORDERED: Varibar Thin Liquid powder 148gm MC PRN (18:45)
[2020-08-14] MEDS ORDERED: Varibar Honey 250ml MC PRN (18:45)
--- NOTE | 2020-08-14 19:15 | NUR ---
NURSE HAND-OFF REPORT: Latest Vital Signs: Temperature 98.9 , Pulse 80 , B/P 113 /63 , Respiratory Rate 31 , O2 SAT 100 , Venturi Mask, O2 Flow Rate 4.0 . Vital Sign Comment: EKG Rhythm: Sinus Rhythm Rhythm change?: N MD Notified?: - N Response: Latest Castro Fall Score: 50 Fall Risk: High Risk Safety Measures: Call light Within Reach, Bed Alarm Zone 1, Side Rails Side Rails x2, Bed position Low and Locked. Fall Precautions: Yellow Socks Yellow Gown Door Sign Patient Fall Education Report given to
--- NOTE | 2020-08-14 19:15 | NUR ---
Received report from ION Loza and assumed care of patient.
[2020-08-14] MEDS: Miralax 17gm pkt ORAL SCH (19:55)
[2020-08-14] MEDS: Dyna-Hex 2% Top Sol 2oz TOPIC SCH (19:55)
--- NOTE | 2020-08-14 20:30 | NUR ---
Assessment completed on patient. Patient not cooperative with medications. Took 1/2 of liquid medications, and refused to drink the remainder. Patient began yelling racial slurs at this RN. Patient noted to be very confused. Oriented patient to place, purpose, and date. patient is oriented to self. Patient very resistive to care. Patient allowed assessment, hanging of antibiotics, and temperature check. Will continue to monitor patient.
--- NOTE | 2020-08-14 22:32 | NUR ---
Pt sleeping at this time. Pt self repositioned in the bed. Decreased O2 via NC down to 3LPM due to O2 saturation maintaining at 100% and HX COPD.
[2020-08-15] VITALS (26 sets, daily range): BP systolic 91–158; BP diastolic 53–98
[2020-08-15] MEDS: Solu-MEDROL 40mg Inj IVP SCH ×4 (00:20→17:22)
--- NOTE | 2020-08-15 02:04 | NUR ---
Pt remains afebrile. VSS. Requested another breathing treatment, however, RT was in room recently and provided breathing treatment. Reoriented patient. Educated that his oxygen requirements have further decreased. He is now on 2LPM NC and his O2 sat remains at 100%.
[2020-08-15] MEDS: Vancomycin 1.25gm/250ml Premix IVPB SCH ×3 (03:47→20:10)
--- NOTE | 2020-08-15 03:57 | NUR ---
0400 assessment complete. See charting for details. Pt remains stable and in NAD. Denies pain. Will continue to monitor the patient.
[2020-08-15 04:22] LABS: HEMATOCRIT 28.9 % (42.0-52.0); HEMOGLOBIN 8.8 G/DL (14.2-18.0); MEAN CORPUSCULAR VOLUME 88 FL (80-99); PLATELET COUNT 311 K/UL (150-450); RED BLOOD COUNT 3.27 M/UL (4.70-6.10); RED CELL DISTRIBUTION WIDTH 14.6 % (11.6-14.8); WHITE BLOOD COUNT 13.6 K/UL (4.8-10.8)
[2020-08-15 04:39] LABS: ANION GAP 3 mmol/L (5-15); BLOOD UREA NITROGEN 13 mg/dL (7-18); CALCIUM 8.9 MG/DL (8.5-10.1); CARBON DIOXIDE 36 MMOL/L (21-32); CHLORIDE 103 MMOL/L (98-107); CREATININE 0.8 MG/DL (0.55-1.30); POTASSIUM 3.6 MMOL/L (3.5-5.1); SODIUM 142 MMOL/L (136-145)
[2020-08-15] MEDS: Gabapentin 300 MG/6 ML Soln NG SCH ×3 (05:35→22:31)
--- NOTE | 2020-08-15 05:41 | NUR ---
RD ASSESSMENT & RECOMMENDATIONS SEE CARE ACTIVITY FOR COMPLETE ASSESSMENT DAILY ESTIMATED NEEDS: Needs based on Critical Care/ 75.7kg abw 22-28 kcals/kg 7981-2207 total kcals 1.2-2 g protein/kg 90-151 g total protein 25-30 mL/kg 1217-3651 total fluid mLs NUTRITION DIAGNOSIS: Swallowing difficulty R/T respiratory failure as evidenced by pt is now extubated (08/14), NPO, TURNTABLE OPERATOR eval pending. CURRENT DIET:NPO, s/p extubation on 08/14 PO DIET RECOMMENDATIONS: LOW NA/ texture per TURNTABLE OPERATOR ADDITIONAL RECOMMENDATIONS: 1) Calibrated bedscale wts 2) F/up w/ TURNTABLE OPERATOR eval and rec 3) Monitor BGs w/ Solumedrol, need for carb controlled diet and/or NISS 4) Monitor lytes, replete as needed 5) Monitor respiratory status: s/p extubation (08/14), now on NC .
--- NOTE | 2020-08-15 06:10 | NUR ---
Pt in NAD, VS remain stable. Patient currently on 2lpm NC and satting well. Anticipate physician transfer order today out of ICU to lower level of care. Will continue to monitor.
[2020-08-15] MEDS: Albuterol/Ipratropium 3ml neb HHN SCH ×3 (07:00→23:04)
--- NOTE | 2020-08-15 07:07 | NUR ---
Report given to Day RN who assumed care of patient.
[2020-08-15] MEDS: Docusate 100mg/10ml Liq NG SCH ×2 (09:06→20:52)
[2020-08-15] MEDS: Enoxaparin 60mg Inj SUBQ SCH ×2 (09:06→20:53)
[2020-08-15] MEDS: Cefepime 2gm/D5W 110ml IV SCH ×4 (09:07→20:55)
[2020-08-15] MEDS: D5 1/2NS 1,000 ML IV SCH ×2 (09:07→22:31)
--- NOTE | 2020-08-15 09:20 | Surgery Progress Note ---
Surgery Progress Note Subjective Additional Comments extubated looks much better responsive no n/v Objective Last 24 Hour Vital Signs Date Time Temp Pulse Resp B/P (MAP) Pulse Ox O2 Delivery O2 Flow Rate FiO2 08/15/20 08:00 88 08/15/20 08:00 88 35 140/80 (100) 100 08/15/20 07:01 78 27 100 Nasal Cannula 2.0 28 80 37 100 08/15/20 07:01 100 Nasal Cannula 2.0 28 08/15/20 07:00 88 35 140/80 (100) 100 08/15/20 06:00 84 30 134/61 (85) 99 08/15/20 05:30 93 33 131/64 (86) 99 08/15/20 05:00 100 41 146/70 (95) 100 08/15/20 04:30 85 36 134/98 (110) 99 08/15/20 04:00 84 08/15/20 04:00 98.3 80 32 109/57 (74) 100 08/15/20 04:00 Nasal Cannula 2.0 08/15/20 03:30 84 33 140/76 (97) 99 08/15/20 03:00 84 26 158/70 (99) 100 08/15/20 02:30 77 31 106/57 (73) 100 08/15/20 02:00 98.4 80 28 114/60 (78) 100 08/15/20 01:30 79 33 111/53 (72) 100 08/15/20 01:00 84 34 105/58 (74) 100 08/15/20 00:30 86 28 111/59 (76) 99 08/15/20 00:00 3.0 08/15/20 00:00 98.3 76 28 121/76 (91) 100 08/15/20 00:00 Nasal Cannula 3.0 08/15/20 00:00 82 08/14/20 23:30 77 28 99/56 (70) 100 08/14/20 23:14 83 26 100 Nasal Cannula 2.0 28 69 22 100 08/14/20 23:00 75 29 105/52 (69) 100 08/14/20 22:30 68 26 103/50 (67) 100 08/14/20 22:00 83 31 121/64 (83) 100 08/14/20 21:30 74 27 105/55 (72) 100 08/14/20 21:00 85 28 123/68 (86) 100 08/14/20 20:30 83 37 121/59 (79) 100 08/14/20 20:16 97 Nasal Cannula 4.0 36 08/14/20 20:00 98.6 78 29 112/63 (79) 100 08/14/20 20:00 Nasal Cannula 4.0 08/14/20 20:00 103 08/14/20 19:30 90 32 119/61 (80) 100 08/14/20 19:00 80 31 113/63 (80) 100 08/14/20 18:30 79 27 105/65 (78) 100 08/14/20 18:00 81 30 105/60 (75) 100 08/14/20 17:30 90 29 111/62 (78) 100 08/14/20 17:00 87 32 130/78 (95) 100 08/14/20 16:30 83 31 116/59 (78) 100 08/14/20 16:27 4.0 08/14/20 16:00 98.9 85 25 140/67 (91) 100 08/14/20 16:00 10.0 45 08/14/20 16:00 Mechanical Ventilator Venturi Mask 08/14/20 15:45 79 27 100 Venturi Mask 14.0 55 77 25 99 08/14/20 15:30 97 33 147/72 (97) 100 08/14/20 15:15 10.0 45 08/14/20 15:00 91 29 141/71 (94) 100 08/14/20 14:30 82 31 123/78 (93) 100 08/14/20 14:00 87 23 131/73 (92) 100 08/14/20 13:30 87 24 131/75 (93) 100 08/14/20 13:00 93 28 136/72 (93) 100 08/14/20 12:30 90 25 133/68 (89) 100 08/14/20 12:00 14.0 55 08/14/20 12:00 99.8 90 25 124/65 (84) 100 08/14/20 12:00 Mechanical Ventilator Venturi Mask 08/14/20 11:35 Venturi Mask 14.0 55 08/14/20 11:35 76 28 98 Venturi Mask 15.0 55 08/14/20 11:30 89 28 126/68 (87) 100 08/14/20 11:15 14.0 55 08/14/20 11:00 81 27 160/110 (127) 100 08/14/20 10:30 79 27 136/78 (97) 100 08/14/20 10:00 24 130/66 Mechanical Ventilator 40 08/14/20 10:00 83 26 130/68 (88) 100 08/14/20 09:30 84 24 119/68 (85) 100 I&O Intake and Output 08/14/20 08/15/20 19:00 07:00 Intake Total 1751.250 ml 555 ml Output Total 2750 ml 2875 ml Balance -998.750 ml -2320 ml Intake Oral 80 ml 30 ml Free Water 180 ml IV Total 1386.250 ml 525 ml Tube Feeding 105 ml Output Urine Total 2750 ml 2875 ml Cardiovascular: RSR Respiratory: clear, decreased breath sounds Abdomen: soft, non-tender, present bowel sounds Extremities: no tenderness, no cyanosis Laboratory Tests Test 08/15/20 04:00 White Blood Count 13.6 K/UL (4.8-10.8) H Red Blood Count 3.27 M/UL (4.70-6.10) L Hemoglobin 8.8 G/DL (14.2-18.0) L Hematocrit 28.9 % (42.0-52.0) L Mean Corpuscular Volume 88 FL (80-99) Mean Corpuscular Hemoglobin 27.0 PG (27.0-31.0) Mean Corpuscular Hemoglobin Concent 30.6 G/DL (32.0-36.0) L Red Cell Distribution Width 14.6 % (11.6-14.8) Platelet Count 311 K/UL (150-450) Mean Platelet Volume 6.5 FL (6.5-10.1) Neutrophils (%) (Auto) % (45.0-75.0) Lymphocytes (%) (Auto) % (20.0-45.0) Monocytes (%) (Auto) % (1.0-10.0) Eosinophils (%) (Auto) % (0.0-3.0) Basophils (%) (Auto) % (0.0-2.0) Differential Total Cells Counted 100 Neutrophils % (Manual) 94 % (45-75) H Lymphocytes % (Manual) 4 % (20-45) L Monocytes % (Manual) 2 % (1-10) Eosinophils % (Manual) 0 % (0-3) Basophils % (Manual) 0 % (0-2) Band Neutrophils 0 % (0-8) Platelet Estimate Adequate Platelet Morphology Normal Hypochromasia 1+ Anisocytosis 1+ Sodium Level 142 MMOL/L (136-145) Potassium Level 3.6 MMOL/L (3.5-5.1) Chloride Level 103 MMOL/L (98-107) Carbon Dioxide Level 36 MMOL/L (21-32) H Anion Gap 3 mmol/L (5-15) L Blood Urea Nitrogen 13 mg/dL (7-18) Creatinine 0.8 MG/DL (0.55-1.30) Estimat Glomerular Filtration Rate > 60 mL/min (>60) Glucose Level 137 MG/DL (74-106) H Calcium Level 8.9 MG/DL (8.5-10.1) Plan Problems: (1) Abdominal distension Assessment & Plan: 79M abdominal distention, respiratory decline, altered me ntal status. on exam noted abd soft, mild distended, non tender. no n/v/f/c. unlikely aspiration. non tender one exam. pending urine and covid test. no acute surgical intervention. hold on ct. kub ordered. will follow with exam and recs. keep npo for now. iv fluids. respiratory pulm support. will follow with recs thank you decline since admission now intubated ng tube to suction no acute surgical intervention cont abx kub noted wean vent enema when stable The rectum is considerably distended with stool. Considerable stool is also seen in the descending colon. The colon is diffusely gas filled, upper limits of normal in caliber. No significant small bowel gas demonstrated. No masses or unusual calcifications. The included lung bases demonstrate bilateral right greater than left pleural effusions. There is a Butler catheter Impression: Distended stool-filled rectum, fecal impaction possible Gas-filled upper limits of normal caliber colon, nonspecific Bilateral right greater than left pleural effusions (2) UTI (urinary tract infection) (3) Pneumonia (4) Multiple pulmonary nodules (5) Respiratory failure with hypoxia Assessment & Plan: cont weaning (6) Pneumonia due to COVID-19 virus (7) History of CVA (cerebrovascular accident) (8) COPD (chronic obstructive pulmonary disease) (9) HTN (hypertension) (10) Hx of prostatic malignancy (11) Major depression (12) Seizure disorder Destin Brown Aug 15, 2020 09:20
--- NOTE | 2020-08-15 11:19 | Pulmonology Progress Note ---
Subjective ROS Limited/Unobtainable: Yes Interval Events: Intubated 08/05/20; extubated 08/14/20 Constitutional: Denies: fever HEENT: Repors: no symptoms Respiratory: Reports: shortness of breath Cardiovascular: Reports: no symptoms Gastrointestinal/Abdominal: Denies: vomiting, diarrhea Genitourinary: Reports: no symptoms Neurologic: Reports: no symptoms Psychiatric: Reports: other - NA Skin: Denies: rash Musculoskeletal: Reports: other - NA Allergies: Coded Allergies: PENICILLINS (Verified Allergy, Unknown, 03/10/20) PHENYTOIN (Verified Allergy, Unknown, 03/10/20) Objective Last 24 Hour Vital Signs Date Time Temp Pulse Resp B/P (MAP) Pulse Ox O2 Delivery O2 Flow Rate FiO2 08/15/20 10:00 88 30 119/64 (82) 100 08/15/20 09:00 88 29 146/78 (100) 100 08/15/20 08:00 Nasal Cannula 2.0 08/15/20 08:00 88 08/15/20 08:00 88 35 140/80 (100) 100 08/15/20 07:01 78 27 100 Nasal Cannula 2.0 28 80 37 100 08/15/20 07:01 100 Nasal Cannula 2.0 28 08/15/20 07:00 88 35 140/80 (100) 100 08/15/20 06:00 84 30 134/61 (85) 99 08/15/20 05:30 93 33 131/64 (86) 99 08/15/20 05:00 100 41 146/70 (95) 100 08/15/20 04:30 85 36 134/98 (110) 99 08/15/20 04:00 84 08/15/20 04:00 98.3 80 32 109/57 (74) 100 08/15/20 04:00 Nasal Cannula 2.0 08/15/20 03:30 84 33 140/76 (97) 99 08/15/20 03:00 84 26 158/70 (99) 100 08/15/20 02:30 77 31 106/57 (73) 100 08/15/20 02:00 98.4 80 28 114/60 (78) 100 08/15/20 01:30 79 33 111/53 (72) 100 08/15/20 01:00 84 34 105/58 (74) 100 08/15/20 00:30 86 28 111/59 (76) 99 08/15/20 00:00 3.0 08/15/20 00:00 98.3 76 28 121/76 (91) 100 08/15/20 00:00 Nasal Cannula 3.0 08/15/20 00:00 82 08/14/20 23:30 77 28 99/56 (70) 100 08/14/20 23:14 83 26 100 Nasal Cannula 2.0 28 69 22 100 08/14/20 23:00 75 29 105/52 (69) 100 08/14/20 22:30 68 26 103/50 (67) 100 08/14/20 22:00 83 31 121/64 (83) 100 08/14/20 21:30 74 27 105/55 (72) 100 08/14/20 21:00 85 28 123/68 (86) 100 08/14/20 20:30 83 37 121/59 (79) 100 08/14/20 20:16 97 Nasal Cannula 4.0 36 08/14/20 20:00 98.6 78 29 112/63 (79) 100 08/14/20 20:00 Nasal Cannula 4.0 08/14/20 20:00 103 08/14/20 19:30 90 32 119/61 (80) 100 08/14/20 19:00 80 31 113/63 (80) 100 08/14/20 18:30 79 27 105/65 (78) 100 08/14/20 18:00 81 30 105/60 (75) 100 08/14/20 17:30 90 29 111/62 (78) 100 08/14/20 17:00 87 32 130/78 (95) 100 08/14/20 16:30 83 31 116/59 (78) 100 08/14/20 16:27 4.0 08/14/20 16:00 98.9 85 25 140/67 (91) 100 08/14/20 16:00 10.0 45 08/14/20 16:00 Mechanical Ventilator Venturi Mask 08/14/20 15:45 79 27 100 Venturi Mask 14.0 55 77 25 99 08/14/20 15:30 97 33 147/72 (97) 100 08/14/20 15:15 10.0 45 08/14/20 15:00 91 29 141/71 (94) 100 08/14/20 14:30 82 31 123/78 (93) 100 08/14/20 14:00 87 23 131/73 (92) 100 08/14/20 13:30 87 24 131/75 (93) 100 08/14/20 13:00 93 28 136/72 (93) 100 08/14/20 12:30 90 25 133/68 (89) 100 08/14/20 12:00 14.0 55 08/14/20 12:00 99.8 90 25 124/65 (84) 100 08/14/20 12:00 Mechanical Ventilator Venturi Mask 08/14/20 11:35 Venturi Mask 14.0 55 08/14/20 11:35 76 28 98 Venturi Mask 15.0 55 08/14/20 11:30 89 28 126/68 (87) 100 Intake and Output 08/14/20 08/15/20 19:00 07:00 Intake Total 1751.250 ml 555 ml Output Total 2750 ml 3075 ml Balance -998.750 ml -2520 ml Intake Oral 80 ml 30 ml Free Water 180 ml IV Total 1386.250 ml 525 ml Tube Feeding 105 ml Output Urine Total 2750 ml 3075 ml General Appearance: no acute distress HEENT: normocephalic Respiratory: chest wall non-tender, lungs clear Cardiovascular: normal peripheral pulses, normal rate Abdomen: normal bowel sounds Extremities: no cyanosis Laboratory Tests 08/15/20 04:00: White Blood Count 13.6H, Red Blood Count 3.27L, Hemoglobin 8.8L, Hematocrit 28.9L, Mean Corpuscular Volume 88, Mean Corpuscular Hemoglobin 27.0, Mean Corpuscular Hemoglobin Concent 30.6L, Red Cell Distribution Width 14.6, Platelet Count 311, Mean Platelet Volume 6.5, Neutrophils (%) (Auto) , Lymphocytes (%) (Auto) , Monocytes (%) (Auto) , Eosinophils (%) (Auto) , Basophils (%) (Auto) , Differential Total Cells Counted 100, Neutrophils % (Manual) 94H, Lymphocytes % (Manual) 4L, Monocytes % (Manual) 2, Eosinophils % (Manual) 0, Basophils % (Manual) 0, Band Neutrophils 0, Platelet Estimate Adequate, Platelet Morphology Normal, Hypochromasia 1+, Anisocytosis 1+, Sodium Level 142, Potassium Level 3.6, Chloride Level 103, Carbon Dioxide Level 36H, Anion Gap 3L, Blood Urea Nitrogen 13, Creatinine 0.8, Estimat Glomerular Filtration Rate > 60, Glucose Level 137H, Calcium Level 8.9 Current Medications Medications (Trade) Dose Ordered Sig/Armand Route PRN Reason Start Time Stop Time Status Last Admin Dose Admin Acetaminophen (Tylenol) 650 mg Q6H PRN NG Mild Pain (Pain Scale 1-3) 08/08/20 14:00 09/07/20 13:59 08/13/20 17:02 Acetaminophen (Tylenol) 650 mg Q6H PRN NG Temp >100.5 08/08/20 14:00 09/07/20 13:59 Albuterol/ Ipratropium (Albuterol/ Ipratropium) 3 ml Q4H PRN HHN Shortness of Breath 08/12/20 09:00 08/17/20 08:59 Albuterol/ Ipratropium (Albuterol/ Ipratropium) 3 ml Q8HRT HHN 08/12/20 09:00 08/17/20 08:59 08/15/20 07:00 Barium Sulfate (Varibar Honey) 250 ml NOW PRN MC RAD 08/14/20 18:45 08/17/20 18:36 Barium Sulfate (Varibar [place]) 240 ml NOW PRN MC RAD 08/14/20 18:45 08/17/20 18:36 Barium Sulfate (Varibar Pudding) 230 ml NOW PRN MC RAD 08/14/20 18:45 08/17/20 18:36 Barium Sulfate (Varibar Thin Liquid powder) 148 gm NOW PRN MC RAD 08/14/20 18:45 08/17/20 18:36 Cefepime HCl 2 gm/ Dextrose 110 ml @ 220 mls/hr EVERY 12 HOURS IV 08/05/20 21:00 08/18/20 23:59 08/15/20 09:07 Chlorhexidine Gluconate (Maddie-Hex 2%) 1 applic DAILY@2000 TOPIC 08/07/20 20:00 11/05/20 19:59 08/14/20 19:55 Dextrose/Sodium Chloride 1,000 ml @ 75 mls/hr [id number] IV 08/06/20 11:00 09/05/20 10:59 08/15/20 09:07 Docusate Sodium (Colace) 100 mg EVERY 12 HOURS NG 08/13/20 21:00 09/11/20 17:59 08/15/20 09:06 Enoxaparin Sodium (Lovenox) 60 mg EVERY 12 HOURS SUBQ 08/05/20 21:00 11/03/20 20:59 08/15/20 09:06 Famotidine (Pepcid I.v.) 20 mg Q12HR IVP 08/06/20 11:00 09/05/20 10:59 08/15/20 09:07 Gabapentin (Neurontin) 300 mg EVERY 8 HOURS NG 08/08/20 22:00 09/04/20 08:59 08/15/20 09:06 Methylprednisolone Sodium Succinate (Solu-MEDROL) 40 mg EVERY 6 HOURS IVP 08/05/20 12:00 11/03/20 11:59 08/15/20 05:35 Metronidazole 100 ml @ 100 mls/hr Q8HR IVPB 08/09/20 22:00 08/16/20 21:59 08/15/20 05:35 Polyethylene Glycol (Miralax) 17 gm BEDTIME ORAL 08/12/20 21:00 09/11/20 20:59 08/14/20 19:55 Vancomycin HCl 250 ml @ 166.667 mls/hr Q8HR@0400,1200,2000 IVPB 08/08/20 20:00 08/16/20 23:59 08/15/20 03:47 Vancomycin HCl (Vanco pharmacy to dose) 1 ea DAILY PRN MISC Per rx protocol 08/04/20 09:15 09/03/20 09:14 Assessment/Plan Assessment/Plan 1. UTI -On empiric antibiotics -Follow-up UCx negative (08/03) 2. Pneumonia -On broad-spectrum antibiotics - CXR concerning for volume loss; reviewed chest CT - CT chest shows dense RUL and RML consolidation - High suspicion for RBI narrowing ; no obvious endobronchial narrowing noted on bronchoscopy 3. COPD exacerbation -Now extubated 4. Respiratory distress - Continue steroids 5. History of seizures -Risk of aspiration -Monitor for seizure activity 6. Elevated CRP -D-dimer wnl -His outpatient medications include Eliquis (hx of A fib?) - Continue Eliquis 7. Monitor carefully, may transfer to tele Continue medications Micha Schneider MD Aug 15, 2020 11:19
--- NOTE | 2020-08-15 13:41 | Nephrology Progress Note ---
Assessment/Plan Problem List: (1) Oliguria (2) Electrolyte imbalance (3) Pneumonia (4) Respiratory failure with hypoxia (5) Pneumonia due to COVID-19 virus (6) Seizure disorder (7) Anemia Assessment Sepsis, respiratory failure Pneumonia and possible aspiration. Questionable COVID-19 infection UTI Abnormal electrolytes Questionable CHF Anemia Plan August 15: Patient extubated on oxygen with cannula. Variable asking for coffee. Renal parameters stable. Continue per consultants. August 14: Status unchanged. Remains full code, intubated, on ventilator, FiO2 of 40%. Labs reviewed. Renal parameters stable. Hemoglobin lower. Suggest transfusion. August 13: Status quo. Remains full code, intubated, on FiO2 of 40%. Labs reviewed. Renal parameters stable. Continue per consultants. August 12: Intubated on ventilator. FiO2 40% unchanged. Full code. Labs reviewed. Renal parameters stable. Continue per consultants. August 11: Intubated on ventilator. O2 40%. Full code. Medication list reviewed. Labs reviewed. Stable from renal standpoint of view. Continue per consultants. August 10: Status quo. Intubated on ventilator. FiO2 remains 40%. Renal parameters stable. Continue per current management. Potassium and phosphorus supplement given August 09: Full code. Intubated on ventilator. FiO2 40%. Labs reviewed. Stable from renal standpoint of view. August 08: Labs reviewed. Renal parameters stable. Abnormal electrolytes addressed. Remains full code. FiO2 50%. Continue per consultants. Discussed with RN. August 07: Labs reviewed. K Phos IV given. Patient intubated. Full code. FiO2 60%. Medication list reviewed. Continue per consultants. Previously: Optimize pulmonary status Optimize cardiac status Monitor renal parameters, urine output, electrolytes Change IV to half-normal saline Anemia [place] Insert NG tube and start feeding Per orders Subjective ROS Limited/Unobtainable: No Constitutional: Reports: malaise Objective Objective Last 24 Hour Vital Signs Date Time Temp Pulse Resp B/P (MAP) Pulse Ox O2 Delivery O2 Flow Rate FiO2 08/15/20 12:00 Nasal Cannula 2.0 08/15/20 11:00 103 36 113/64 (80) 100 08/15/20 10:00 88 30 119/64 (82) 100 08/15/20 09:00 88 29 146/78 (100) 100 08/15/20 08:00 Nasal Cannula 2.0 08/15/20 08:00 88 08/15/20 08:00 88 35 140/80 (100) 100 08/15/20 07:01 78 27 100 Nasal Cannula 2.0 28 80 37 100 08/15/20 07:01 100 Nasal Cannula 2.0 28 08/15/20 07:00 88 35 140/80 (100) 100 08/15/20 06:00 84 30 134/61 (85) 99 08/15/20 05:30 93 33 131/64 (86) 99 08/15/20 05:00 100 41 146/70 (95) 100 08/15/20 04:30 85 36 134/98 (110) 99 08/15/20 04:00 84 08/15/20 04:00 98.3 80 32 109/57 (74) 100 08/15/20 04:00 Nasal Cannula 2.0 08/15/20 03:30 84 33 140/76 (97) 99 08/15/20 03:00 84 26 158/70 (99) 100 08/15/20 02:30 77 31 106/57 (73) 100 08/15/20 02:00 98.4 80 28 114/60 (78) 100 08/15/20 01:30 79 33 111/53 (72) 100 08/15/20 01:00 84 34 105/58 (74) 100 08/15/20 00:30 86 28 111/59 (76) 99 08/15/20 00:00 3.0 08/15/20 00:00 98.3 76 28 121/76 (91) 100 08/15/20 00:00 Nasal Cannula 3.0 08/15/20 00:00 82 08/14/20 23:30 77 28 99/56 (70) 100 08/14/20 23:14 83 26 100 Nasal Cannula 2.0 28 69 22 100 08/14/20 23:00 75 29 105/52 (69) 100 08/14/20 22:30 68 26 103/50 (67) 100 08/14/20 22:00 83 31 121/64 (83) 100 08/14/20 21:30 74 27 105/55 (72) 100 08/14/20 21:00 85 28 123/68 (86) 100 08/14/20 20:30 83 37 121/59 (79) 100 08/14/20 20:16 97 Nasal Cannula 4.0 36 08/14/20 20:00 98.6 78 29 112/63 (79) 100 08/14/20 20:00 Nasal Cannula 4.0 08/14/20 20:00 103 08/14/20 19:30 90 32 119/61 (80) 100 08/14/20 19:00 80 31 113/63 (80) 100 08/14/20 18:30 79 27 105/65 (78) 100 08/14/20 18:00 81 30 105/60 (75) 100 08/14/20 17:30 90 29 111/62 (78) 100 08/14/20 17:00 87 32 130/78 (95) 100 08/14/20 16:30 83 31 116/59 (78) 100 08/14/20 16:27 4.0 08/14/20 16:00 98.9 85 25 140/67 (91) 100 08/14/20 16:00 10.0 45 08/14/20 16:00 Mechanical Ventilator Venturi Mask 08/14/20 15:45 79 27 100 Venturi Mask 14.0 55 77 25 99 08/14/20 15:30 97 33 147/72 (97) 100 08/14/20 15:15 10.0 45 08/14/20 15:00 91 29 141/71 (94) 100 08/14/20 14:30 82 31 123/78 (93) 100 08/14/20 14:00 87 23 131/73 (92) 100 Intake and Output 08/14/20 08/15/20 19:00 07:00 Intake Total 1751.250 ml 555 ml Output Total 2750 ml 3075 ml Balance -998.750 ml -2520 ml Intake Oral 80 ml 30 ml Free Water 180 ml IV Total 1386.250 ml 525 ml Tube Feeding 105 ml Output Urine Total 2750 ml 3075 ml Current Medications Medications (Trade) Dose Ordered Sig/Armand Route PRN Reason Start Time Stop Time Status Last Admin Dose Admin Acetaminophen (Tylenol) 650 mg Q6H PRN NG Mild Pain (Pain Scale 1-3) 08/08/20 14:00 09/07/20 13:59 08/13/20 17:02 Acetaminophen (Tylenol) 650 mg Q6H PRN NG Temp >100.5 2/20/21 14:00 09/07/20 13:59 Albuterol/ Ipratropium (Albuterol/ Ipratropium) 3 ml Q4H PRN HHN Shortness of Breath 08/12/20 09:00 08/17/20 08:59 Albuterol/ Ipratropium (Albuterol/ Ipratropium) 3 ml Q8HRT HHN 08/12/20 09:00 08/17/20 08:59 08/15/20 07:00 Barium Sulfate (Varibar Honey) 250 ml NOW PRN MC RAD 08/14/20 18:45 08/17/20 18:36 Barium Sulfate (Varibar [place]) 240 ml NOW PRN MC RAD 08/14/20 18:45 08/17/20 18:36 Barium Sulfate (Varibar Pudding) 230 ml NOW PRN MC RAD 08/14/20 18:45 08/17/20 18:36 Barium Sulfate (Varibar Thin Liquid powder) 148 gm NOW PRN RAD 08/14/20 18:45 08/17/20 18:36 Cefepime HCl 2 gm/ Dextrose 110 ml @ 220 mls/hr EVERY 12 HOURS IV 08/05/20 21:00 08/18/20 23:59 08/15/20 09:07 Chlorhexidine Gluconate (Maddie-Hex 2%) 1 applic DAILY@2000 TOPIC 08/07/20 20:00 11/05/20 19:59 08/14/20 19:55 Dextrose/Sodium Chloride 1,000 ml @ 75 mls/hr [id number] IV 08/06/20 11:00 09/05/20 10:59 08/15/20 09:07 Docusate Sodium (Colace) 100 mg EVERY 12 HOURS NG 08/13/20 21:00 09/11/20 17:59 08/15/20 09:06 Enoxaparin Sodium (Lovenox) 60 mg EVERY 12 HOURS SUBQ 08/05/20 21:00 11/03/20 20:59 08/15/20 09:06 Famotidine (Pepcid I.v.) 20 mg Q12HR IVP 08/06/20 11:00 09/05/20 10:59 08/15/20 09:07 Gabapentin (Neurontin) 300 mg EVERY 8 HOURS NG 08/08/20 22:00 09/04/20 08:59 08/15/20 09:06 Methylprednisolone Sodium Succinate (Solu-MEDROL) 40 mg EVERY 6 HOURS IVP 08/05/20 12:00 11/03/20 11:59 08/15/20 12:52 Metronidazole 100 ml @ 100 mls/hr Q8HR IVPB 08/09/20 22:00 08/16/20 21:59 08/15/20 05:35 Polyethylene Glycol (Miralax) 17 gm BEDTIME ORAL 08/12/20 21:00 09/11/20 20:59 08/14/20 19:55 Vancomycin HCl 250 ml @ 166.667 mls/hr Q8HR@0400,1200,2000 IVPB 08/08/20 20:00 08/16/20 23:59 08/15/20 12:52 Vancomycin HCl (Vanco pharmacy to dose) 1 ea DAILY PRN MISC Per rx protocol 08/04/20 09:15 09/03/20 09:14 Laboratory Tests 08/15/20 04:00: White Blood Count 13.6H, Red Blood Count 3.27L, Hemoglobin 8.8L, Hematocrit 28.9L, Mean Corpuscular Volume 88, Mean Corpuscular Hemoglobin 27.0, Mean Corpuscular Hemoglobin Concent 30.6L, Red Cell Distribution Width 14.6, Platelet Count 311, Mean Platelet Volume 6.5, Neutrophils (%) (Auto) , Lymphocytes (%) (Auto) , Monocytes (%) (Auto) , Eosinophils (%) (Auto) , Basophils (%) (Auto) , Differential Total Cells Counted 100, Neutrophils % (Manual) 94H, Lymphocytes % (Manual) 4L, Monocytes % (Manual) 2, Eosinophils % (Manual) 0, Basophils % (Manual) 0, Band Neutrophils 0, Platelet Estimate Adequate, Platelet Morphology Normal, Hypochromasia 1+, Anisocytosis 1+, Sodium Level 142, Potassium Level 3.6, Chloride Level 103, Carbon Dioxide Level 36H, Anion Gap 3L, Blood Urea Nitrogen 13, Creatinine 0.8, Estimat Glomerular Filtration Rate > 60, Glucose Level 137H, Calcium Level 8.9 Height (Feet): 6 Height (Inches): 1.00 Weight (Pounds): 190 General Appearance: no apparent distress EENT: other - Now extubated, on nasal cannula Cardiovascular: tachycardia Respiratory/Chest: decreased breath sounds Abdomen: distended Aashish Burgess MD Aug 15, 2020 13:41
--- NOTE | 2020-08-15 15:45 | NUR ---
PT Note Attempted to see patient for PT eval/tx but was advised by RN/CN to hold off on PT till tomorrow.
--- NOTE | 2020-08-15 15:55 | Cardiac Electrophysiology PN ---
Assessment/Plan Assessment/Plan 1. Respiratory failure. On IV antibiotic. Extubated 08/14/20 Echo showed EF 50% 2. Questionable congestive heart failure. EF normal and BNP is only 39. 3. Septic shock off Levo 4. History of COVID pneumonia, status post vaccination for COVID. Currently on IV antibiotic and prednisone. Now off isolation 5. Questionable history of atrial fibrillation versus DVT. The patient is on Eliquis 2.5 mg b.i.d. Currently in SR 6. Full Code Subjective Subjective In ICU extubated yesterday. OGT in place In SR. Off restraints off fentanyl drip Off pressors Objective Last 24 Hour Vital Signs Date Time Temp Pulse Resp B/P (MAP) Pulse Ox O2 Delivery O2 Flow Rate FiO2 08/15/20 15:00 88 41 116/71 (86) 100 08/15/20 14:47 84 26 100 Nasal Cannula 2.0 28 81 28 100 08/15/20 14:00 85 35 99/72 (81) 100 08/15/20 13:00 97.5 81 30 113/87 (96) 100 08/15/20 12:00 Nasal Cannula 2.0 08/15/20 12:00 82 08/15/20 12:00 81 33 119/74 (89) 100 08/15/20 11:00 103 36 113/64 (80) 100 08/15/20 10:00 88 30 119/64 (82) 100 08/15/20 09:00 88 29 146/78 (100) 100 08/15/20 08:00 Nasal Cannula 2.0 08/15/20 08:00 88 08/15/20 08:00 88 35 140/80 (100) 100 08/15/20 07:01 78 27 100 Nasal Cannula 2.0 28 80 37 100 08/15/20 07:01 100 Nasal Cannula 2.0 28 08/15/20 07:00 88 35 140/80 (100) 100 08/15/20 06:00 84 30 134/61 (85) 99 08/15/20 05:30 93 33 131/64 (86) 99 08/15/20 05:00 100 41 146/70 (95) 100 08/15/20 04:30 85 36 134/98 (110) 99 08/15/20 04:00 84 08/15/20 04:00 98.3 80 32 109/57 (74) 100 08/15/20 04:00 Nasal Cannula 2.0 08/15/20 03:30 84 33 140/76 (97) 99 08/15/20 03:00 84 26 158/70 (99) 100 08/15/20 02:30 77 31 106/57 (73) 100 08/15/20 02:00 98.4 80 28 114/60 (78) 100 08/15/20 01:30 79 33 111/53 (72) 100 08/15/20 01:00 84 34 105/58 (74) 100 08/15/20 00:30 86 28 111/59 (76) 99 08/15/20 00:00 3.0 08/15/20 00:00 98.3 76 28 121/76 (91) 100 08/15/20 00:00 Nasal Cannula 3.0 08/15/20 00:00 82 08/14/20 23:30 77 28 99/56 (70) 100 08/14/20 23:14 83 26 100 Nasal Cannula 2.0 28 69 22 100 08/14/20 23:00 75 29 105/52 (69) 100 08/14/20 22:30 68 26 103/50 (67) 100 08/14/20 22:00 83 31 121/64 (83) 100 08/14/20 21:30 74 27 105/55 (72) 100 08/14/20 21:00 85 28 123/68 (86) 100 08/14/20 20:30 83 37 121/59 (79) 100 08/14/20 20:16 97 Nasal Cannula 4.0 36 08/14/20 20:00 98.6 78 29 112/63 (79) 100 08/14/20 20:00 Nasal Cannula 4.0 08/14/20 20:00 103 08/14/20 19:30 90 32 119/61 (80) 100 08/14/20 19:00 80 31 113/63 (80) 100 08/14/20 18:30 79 27 105/65 (78) 100 08/14/20 18:00 81 30 105/60 (75) 100 08/14/20 17:30 90 29 111/62 (78) 100 08/14/20 17:00 87 32 130/78 (95) 100 08/14/20 16:30 83 31 116/59 (78) 100 08/14/20 16:27 4.0 08/14/20 16:00 98.9 85 25 140/67 (91) 100 08/14/20 16:00 10.0 45 08/14/20 16:00 Mechanical Ventilator Venturi Mask Intake and Output 08/14/20 08/15/20 19:00 07:00 Intake Total 1751.250 ml 555 ml Output Total 2750 ml 3075 ml Balance -998.750 ml -2520 ml Intake Oral 80 ml 30 ml Free Water 180 ml IV Total 1386.250 ml 525 ml Tube Feeding 105 ml Output Urine Total 2750 ml 3075 ml Laboratory Tests Test 08/15/20 04:00 White Blood Count 13.6 K/UL (4.8-10.8) H Red Blood Count 3.27 M/UL (4.70-6.10) L Hemoglobin 8.8 G/DL (14.2-18.0) L Hematocrit 28.9 % (42.0-52.0) L Mean Corpuscular Volume 88 FL (80-99) Mean Corpuscular Hemoglobin 27.0 PG (27.0-31.0) Mean Corpuscular Hemoglobin Concent 30.6 G/DL (32.0-36.0) L Red Cell Distribution Width 14.6 % (11.6-14.8) Platelet Count 311 K/UL (150-450) Mean Platelet Volume 6.5 FL (6.5-10.1) Neutrophils (%) (Auto) % (45.0-75.0) Lymphocytes (%) (Auto) % (20.0-45.0) Monocytes (%) (Auto) % (1.0-10.0) Eosinophils (%) (Auto) % (0.0-3.0) Basophils (%) (Auto) % (0.0-2.0) Differential Total Cells Counted 100 Neutrophils % (Manual) 94 % (45-75) H Lymphocytes % (Manual) 4 % (20-45) L Monocytes % (Manual) 2 % (1-10) Eosinophils % (Manual) 0 % (0-3) Basophils % (Manual) 0 % (0-2) Band Neutrophils 0 % (0-8) Platelet Estimate Adequate Platelet Morphology Normal Hypochromasia 1+ Anisocytosis 1+ Sodium Level 142 MMOL/L (136-145) Potassium Level 3.6 MMOL/L (3.5-5.1) Chloride Level 103 MMOL/L (98-107) Carbon Dioxide Level 36 MMOL/L (21-32) H Anion Gap 3 mmol/L (5-15) L Blood Urea Nitrogen 13 mg/dL (7-18) Creatinine 0.8 MG/DL (0.55-1.30) Estimat Glomerular Filtration Rate > 60 mL/min (>60) Glucose Level 137 MG/DL (74-106) H Calcium Level 8.9 MG/DL (8.5-10.1) Objective HEAD AND NECK: Extubated LUNGS: Coarse rhonchi. CARDIOVASCULAR: Regular S1 and S2 with no gallop. ABDOMEN: Soft. EXTREMITIES: 1 plus pitting edema. Devyn Magdaleno MD Aug 15, 2020 15:55
--- NOTE | 2020-08-15 16:54 | Internal Med Progress Note ---
Subjective Date of Service: Aug 15, 2020 Physician Name HickmanPablo Attending Physician Torres Saul MD Current Medications Medications (Trade) Dose Ordered Sig/Armand Route PRN Reason Start Time Stop Time Status Last Admin Dose Admin Acetaminophen (Tylenol) 650 mg Q6H PRN NG Mild Pain (Pain Scale 1-3) 08/08/20 14:00 09/07/20 13:59 08/13/20 17:02 Acetaminophen (Tylenol) 650 mg Q6H PRN NG Temp >100.5 08/08/20 14:00 09/07/20 13:59 Albuterol/ Ipratropium (Albuterol/ Ipratropium) 3 ml Q4H PRN HHN Shortness of Breath 08/12/20 09:00 08/17/20 08:59 Albuterol/ Ipratropium (Albuterol/ Ipratropium) 3 ml Q8HRT HHN 08/12/20 09:00 08/17/20 08:59 08/15/20 14:46 Barium Sulfate (Varibar Honey) 250 ml NOW PRN MC RAD 08/14/20 18:45 08/17/20 18:36 Barium Sulfate (Varibar [place]) 240 ml NOW PRN MC RAD 08/14/20 18:45 08/17/20 18:36 Barium Sulfate (Varibar Pudding) 230 ml NOW PRN MC RAD 08/14/20 18:45 08/17/20 18:36 Barium Sulfate (Varibar Thin Liquid powder) 148 gm NOW PRN MC RAD 08/14/20 18:45 08/17/20 18:36 Cefepime HCl 2 gm/ Dextrose 110 ml @ 220 mls/hr EVERY 12 HOURS IV 08/05/20 21:00 08/18/20 23:59 08/15/20 09:07 Chlorhexidine Gluconate (Maddie-Hex 2%) 1 applic DAILY@2000 TOPIC 08/07/20 20:00 11/05/20 19:59 08/14/20 19:55 Dextrose/Sodium Chloride 1,000 ml @ 75 mls/hr [id number] IV 08/06/20 11:00 09/05/20 10:59 08/15/20 09:07 Docusate Sodium (Colace) 100 mg EVERY 12 HOURS NG 08/13/20 21:00 09/11/20 17:59 08/15/20 09:06 Enoxaparin Sodium (Lovenox) 60 mg EVERY 12 HOURS SUBQ 08/05/20 21:00 11/03/20 20:59 08/15/20 09:06 Famotidine (Pepcid I.v.) 20 mg Q12HR IVP 08/06/20 11:00 09/05/20 10:59 08/15/20 09:07 Gabapentin (Neurontin) 300 mg EVERY 8 HOURS NG 08/08/20 22:00 09/04/20 08:59 08/15/20 09:06 Methylprednisolone Sodium Succinate (Solu-MEDROL) 40 mg EVERY 6 HOURS IVP 08/05/20 12:00 11/03/20 11:59 08/15/20 12:52 Metronidazole 100 ml @ 100 mls/hr Q8HR IVPB 08/09/20 22:00 08/16/20 21:59 08/15/20 14:17 Polyethylene Glycol (Miralax) 17 gm BEDTIME ORAL 08/12/20 21:00 09/11/20 20:59 08/14/20 19:55 Vancomycin HCl 250 ml @ 166.667 mls/hr Q8HR@0400,1200,2000 IVPB 08/08/20 20:00 08/16/20 23:59 08/15/20 12:52 Vancomycin HCl (Vanco pharmacy to dose) 1 ea DAILY PRN MISC Per rx protocol 08/04/20 09:15 09/03/20 09:14 Allergies: Coded Allergies: PENICILLINS (Verified Allergy, Unknown, 03/10/20) PHENYTOIN (Verified Allergy, Unknown, 03/10/20) ROS Limited/Unobtainable: Yes Subjective 79 YO M admitted with respiratory distress. Now pneumonia. Cover for Int Med- Dr Saul. ICU. Extubated 08/14/20 Objective Last Vital Signs Date Time Temp Pulse Resp B/P (MAP) Pulse Ox O2 Delivery O2 Flow Rate FiO2 08/15/20 16:00 90 37 107/61 (76) 100 08/15/20 16:00 Nasal Cannula 2.0 08/15/20 14:47 28 08/15/20 13:00 97.5 Laboratory Tests Test 08/15/20 04:00 White Blood Count 13.6 K/UL (4.8-10.8) H Red Blood Count 3.27 M/UL (4.70-6.10) L Hemoglobin 8.8 G/DL (14.2-18.0) L Hematocrit 28.9 % (42.0-52.0) L Mean Corpuscular Volume 88 FL (80-99) Mean Corpuscular Hemoglobin 27.0 PG (27.0-31.0) Mean Corpuscular Hemoglobin Concent 30.6 G/DL (32.0-36.0) L Red Cell Distribution Width 14.6 % (11.6-14.8) Platelet Count 311 K/UL (150-450) Mean Platelet Volume 6.5 FL (6.5-10.1) Neutrophils (%) (Auto) % (45.0-75.0) Lymphocytes (%) (Auto) % (20.0-45.0) Monocytes (%) (Auto) % (1.0-10.0) Eosinophils (%) (Auto) % (0.0-3.0) Basophils (%) (Auto) % (0.0-2.0) Differential Total Cells Counted 100 Neutrophils % (Manual) 94 % (45-75) H Lymphocytes % (Manual) 4 % (20-45) L Monocytes % (Manual) 2 % (1-10) Eosinophils % (Manual) 0 % (0-3) Basophils % (Manual) 0 % (0-2) Band Neutrophils 0 % (0-8) Platelet Estimate Adequate Platelet Morphology Normal Hypochromasia 1+ Anisocytosis 1+ Sodium Level 142 MMOL/L (136-145) Potassium Level 3.6 MMOL/L (3.5-5.1) Chloride Level 103 MMOL/L (98-107) Carbon Dioxide Level 36 MMOL/L (21-32) H Anion Gap 3 mmol/L (5-15) L Blood Urea Nitrogen 13 mg/dL (7-18) Creatinine 0.8 MG/DL (0.55-1.30) Estimat Glomerular Filtration Rate > 60 mL/min (>60) Glucose Level 137 MG/DL (74-106) H Calcium Level 8.9 MG/DL (8.5-10.1) Intake and Output 0 08/14/20 08/15/20 19:00 07:00 Intake Total 1751.250 ml 555 ml Output Total 2750 ml 3075 ml Balance -998.750 ml -2520 ml Intake Oral 80 ml 30 ml Free Water 180 ml IV Total 1386.250 ml 525 ml Tube Feeding 105 ml Output Urine Total 2750 ml 3075 ml Objective PHYSICAL EXAMINATION: GENERAL: The patient is well-developed, well-nourished male, in moderate respiratory distress. HEENT: Eyes, pupils are equal and responsive to light and accommodation. Extraocular movements are intact. NECK: Supple. No lymphadenopathy. CHEST: nasal canula; Lungs are clear to auscultation bilaterally without wheezes or rales. CARDIOVASCULAR: Regular rhythm and rate. S1-S2 are normal without murmurs, rubs, or gallops. ABDOMEN: Soft, nontender, and nondistended. Positive bowel sounds. No evidence of hepatosplenomegaly. Currently, no rebound or guarding noted. EXTREMITIES: Negative for clubbing, cyanosis, or edema. RECTAL/GENITAL: Not performed. NEUROLOGIC: Cranial nerves II through XII are grossly intact without focal deficits. Motor strength is 5/5 bilaterally. Deep tendon reflexes are 2+ plantar. Assessment/Plan Assessment/Plan ASSESSMENT: This is an 79-year-old male with. 1. Respiratory failure-intubated 08/05/20; extubated 08/14/20 2. Right-sided pneumonia. 3. Hypertension. 4. Congestive heart failure. 5. Chronic obstructive pulmonary disease. 6. Anemia. 7. Cerebrovascular disease, status post cerebrovascular accident. 8. Peripheral vascular disease. 9. Gastroesophageal reflux disease. 10. Major depression. 11. Seizure disorder. 12. History of COVID-19 positive in February 2020. 13. Benign prostatic hypertrophy. TREATMENT: 1. Respiratory failure/right-sided pneumonia pulmonary consultation= Dr. Micha Schneider. ABX= vancomycin, flagyl and S/P cefepime. Infectious Disease= Dr. Urrutia. Follow recommendations of Infectious Disease and Pulmonary. 2. Hypertension. The patient is currently hypotensive. 3. Congestive heart failure. 4. Chronic obstructive pulmonary disease. Continue DuoNeb as above. 5. Anemia. 6. Cerebrovascular disease. 7. Peripheral vascular disease. 8. Gastroesophageal reflux disease. Continue famotidine as above. 9. Major depression. Seizure disorder. 10. COVID-19 positive, history in February 2020. 11. Benign prostatic hypertrophy. Continue Flomax as above. Pablo Hickman MD Aug 15, 2020 16:54
--- NOTE | 2020-08-15 17:54 | Infectious Diseases Prog Note ---
Assessment/Plan Assessment/Plan ASSESSMENT AND PLAN: 1. 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 contaminant vs bacteremia, uti, sepsis, shock, respiratory failure, vent sirs, leukocytosis, fevers mrsa colonization + femoral line -now patient with picc line covid-19 testing negative - vancomycin, cefepime and flagyl - finish course - f/u on labs and chest x-ray - clinically better, extubated - d/w RN at length (primary and charge nurse) - off pressors - leukocytosis likely secondary to steroids - clinically improved 2. await COVID testing. Patient is in COVID isolation with history of COVID in the past. 3. Patient is on steroids. 4. If patient has COVID infection or new COVID infection, patient is a poor candidate for remdesivir because of respiratory failure, mechanical ventilation. Probably not very beneficial action in a patient like this. 5. Vent care per Pulmonary Medicine. 6. Blood pressure support. 7. Hypertension. 8. CHF. 9. COPD. 10. Prostate cancer. 11. Anemia. 12. CVA. 13. Aspiration risk. 14. Peripheral vascular disease. 15. GERD. 16. Seizures. 17. Depression. 18. History of COVID infection in February 2020. 19. Continue treatment per primary consultants. 20. Orders were noted and entered. 21. Skin care protocol. 22. Allergies to penicillin and phenytoin. 23. Social history is negative. 24. Family history is noncontributory. 25. MAR is noted. 26. Case was discussed with RN. Subjective Constitutional: Reports: fatigue, other - extubated, alert ; Denies: fever HEENT: Reports: congestion Respiratory: Reports: shortness of breath Cardiovascular: Reports: other - no pressors ; Denies: chest pain Genitourinary: Reports: other - + bee Neurologic: Reports: weakness Psychiatric: Reports: other - NA Skin: Denies: rash Hematologic: Denies: bleeding Musculoskeletal: Denies: pain Allergies: Coded Allergies: PENICILLINS (Verified Allergy, Unknown, 03/10/20) PHENYTOIN (Verified Allergy, Unknown, 03/10/20) Objective Last 24 Hour Vital Signs Date Time Temp Pulse Resp B/P (MAP) Pulse Ox O2 Delivery O2 Flow Rate FiO2 08/15/20 16:00 90 37 107/61 (76) 100 2/27/21 16:00 Nasal Cannula 2.0 08/15/20 16:00 89 08/15/20 15:00 88 41 116/71 (86) 100 08/15/20 14:47 84 26 100 Nasal Cannula 2.0 28 81 28 100 08/15/20 14:00 85 35 99/72 (81) 100 08/15/20 13:00 97.5 81 30 113/87 (96) 100 08/15/20 12:00 Nasal Cannula 2.0 08/15/20 12:00 82 08/15/20 12:00 81 33 119/74 (89) 100 08/15/20 11:00 103 36 113/64 (80) 100 08/15/20 10:00 88 30 119/64 (82) 100 08/15/20 09:00 88 29 146/78 (100) 100 08/15/20 08:00 Nasal Cannula 2.0 08/15/20 08:00 88 08/15/20 08:00 88 35 140/80 (100) 100 08/15/20 07:01 78 27 100 Nasal Cannula 2.0 28 80 37 100 08/15/20 07:01 100 Nasal Cannula 2.0 28 08/15/20 07:00 88 35 140/80 (100) 100 08/15/20 06:00 84 30 134/61 (85) 99 08/15/20 05:30 93 33 131/64 (86) 99 08/15/20 05:00 100 41 146/70 (95) 100 08/15/20 04:30 85 36 134/98 (110) 99 08/15/20 04:00 84 08/15/20 04:00 98.3 80 32 109/57 (74) 100 08/15/20 04:00 Nasal Cannula 2.0 08/15/20 03:30 84 33 140/76 (97) 99 08/15/20 03:00 84 26 158/70 (99) 100 08/15/20 02:30 77 31 106/57 (73) 100 08/15/20 02:00 98.4 80 28 114/60 (78) 100 08/15/20 01:30 79 33 111/53 (72) 100 08/15/20 01:00 84 34 105/58 (74) 100 08/15/20 00:30 86 28 111/59 (76) 99 08/15/20 00:00 3.0 08/15/20 00:00 98.3 76 28 121/76 (91) 100 08/15/20 00:00 Nasal Cannula 3.0 08/15/20 00:00 82 08/14/20 23:30 77 28 99/56 (70) 100 08/14/20 23:14 83 26 100 Nasal Cannula 2.0 28 69 22 100 08/14/20 23:00 75 29 105/52 (69) 100 08/14/20 22:30 68 26 103/50 (67) 100 08/14/20 22:00 83 31 121/64 (83) 100 08/14/20 21:30 74 27 105/55 (72) 100 08/14/20 21:00 85 28 123/68 (86) 100 08/14/20 20:30 83 37 121/59 (79) 100 08/14/20 20:16 97 Nasal Cannula 4.0 36 08/14/20 20:00 98.6 78 29 112/63 (79) 100 08/14/20 20:00 Nasal Cannula 4.0 08/14/20 20:00 103 08/14/20 19:30 90 32 119/61 (80) 100 08/14/20 19:00 80 31 113/63 (80) 100 08/14/20 18:30 79 27 105/65 (78) 100 08/14/20 18:00 81 30 105/60 (75) 100 Height (Feet): 6 Height (Inches): 1.00 Weight (Pounds): 190 General Appearance: no acute distress HEENT: normocephalic, atraumatic, anicteric Respiratory/Chest: no respiratory distress, no accessory muscle use, crackles/rales, rhonchi - bilaterally Cardiovascular: normal rate, regular rhythm, no gallop/murmur Abdomen: normal bowel sounds, soft, non tender, no organomegaly, non distended Genitourinary: other - + bee Extremities: no cyanosis Skin: no rash 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 Considerable right upper lobe atelectatic changes. COPD changes A few areas of atelectasis and possibly some consolidation is seen in the left lung Small right pleural fluid Evidence of old granulomatous disease 3 mm mm noncalcified nodule in the right middle lobe, not definitely evident previously. Recommend short interval 6 to 12 month follow-up CT scan Dilated right main pulmonary artery, indicative of pulmonary arterial hypertension Satisfactory endotracheal intubation Cholelithiasis Chest x-ray - 08/06/20 - Procedure: XRAY Chest 1v Indication: Abnormal chest sounds Technique: One view of the chest Comparison: 08/05/2020 Findings: Stable satisfactory the position of endotracheal tube. There is developing atelectasis in the right upper lung. There is persistent pleural fluid on the right and increasing parenchymal consolidation. Left lung pleural space remain clear. The heart size is normal Impression: Increasing right upper lobe atelectasis and right lung infiltrate. Unchanged right pleural effusion Chest x-ray - 08/09/20 Procedure: XRAY Chest 1v EXAM: XR Chest, 1 View CLINICAL HISTORY: INFECT TECHNIQUE: Frontal view of the chest. COMPARISON: Chest radiograph August 06, 2020. FINDINGS/IMPRESSION: Stable endotracheal tube. Opacity within the right lower lung field consistent with infiltrate, which is mild improving. Mild-moderate pleural effusion which is mildly worsening. No pneumothorax. The heart size is within normal limit. Calcified, tortuous aorta. Chest x-ray - 08/11/20 - IMPRESSION: No change in bibasilar infiltrate and small bilateral effusions. Endotracheal tube and NG tube remain in place. Chest x-ray - 08/13/20- Procedure: XRAY Chest 1v Procedure: XRAY Chest 1v Reason for study: Shortness of breath. Comparison films: 08/11/2020. FINDINGS: Endotracheal tube, NG tube and right PICC line imaging in place. Vascularity is normal. Basilar infiltrates and small effusions are unchanged. Cardiac and mediastinal silhouette are within normal limits. The bony thorax appear unremarkable. IMPRESSION: NO SIGNIFICANT CHANGE COMPARED TO PREVIOUS EXAM. Chest x-ray - 08/14/20 - Procedure: XRAY Chest 1v Procedure: XRAY Chest 1v Reason for study: Reason For Exam: SOB Comparison films: 08/13/2020. FINDINGS: Radiograph is underexposed. Endotracheal tube and NG tube remain in place . Bilateral infiltrates and small effusions unchanged. Cardiac and mediastinal silhouette are within normal limits. The bony thorax appear unremarkable. IMPRESSION: NO SIGNIFICANT CHANGE COMPARED TO PREVIOUS EXAM. Microbiology Date/Time Source Procedure Growth Status 08/07/20 04:00 Sputum Gram Stain - Final Complete 08/07/20 04:00 Sputum Sputum Culture - Final NO GROWTH AFTER 48 HOURS Complete 08/06/20 03:20 Blood Blood Culture - Final NO GROWTH AFTER 5 DAYS Complete 08/04/20 05:50 Rectum - Final NO CARBAPENEM-RESISTANT ENTEROBACTERI... Complete 08/03/20 19:41 Urine,Clean Catch Urine Culture - Final Mixed Gram Positive Organism Complete Laboratory Tests Test 08/15/20 04:00 White Blood Count 13.6 K/UL (4.8-10.8) H Red Blood Count 3.27 M/UL (4.70-6.10) L Hemoglobin 8.8 G/DL (14.2-18.0) L Hematocrit 28.9 % (42.0-52.0) L Mean Corpuscular Volume 88 FL (80-99) Mean Corpuscular Hemoglobin 27.0 PG (27.0-31.0) Mean Corpuscular Hemoglobin Concent 30.6 G/DL (32.0-36.0) L Red Cell Distribution Width 14.6 % (11.6-14.8) Platelet Count 311 K/UL (150-450) Mean Platelet Volume 6.5 FL (6.5-10.1) Neutrophils (%) (Auto) % (45.0-75.0) Lymphocytes (%) (Auto) % (20.0-45.0) Monocytes (%) (Auto) % (1.0-10.0) Eosinophils (%) (Auto) % (0.0-3.0) Basophils (%) (Auto) % (0.0-2.0) Differential Total Cells Counted 100 Neutrophils % (Manual) 94 % (45-75) H Lymphocytes % (Manual) 4 % (20-45) L Monocytes % (Manual) 2 % (1-10) Eosinophils % (Manual) 0 % (0-3) Basophils % (Manual) 0 % (0-2) Band Neutrophils 0 % (0-8) Platelet Estimate Adequate Platelet Morphology Normal Hypochromasia 1+ Anisocytosis 1+ Sodium Level 142 MMOL/L (136-145) Potassium Level 3.6 MMOL/L (3.5-5.1) Chloride Level 103 MMOL/L (98-107) Carbon Dioxide Level 36 MMOL/L (21-32) H Anion Gap 3 mmol/L (5-15) L Blood Urea Nitrogen 13 mg/dL (7-18) Creatinine 0.8 MG/DL (0.55-1.30) Estimat Glomerular Filtration Rate > 60 mL/min (>60) Glucose Level 137 MG/DL (74-106) H Calcium Level 8.9 MG/DL (8.5-10.1) Current Medications Medications (Trade) Dose Ordered Sig/Armand Route PRN Reason Start Time Stop Time Status Last Admin Dose Admin Acetaminophen (Tylenol) 650 mg Q6H PRN NG Mild Pain (Pain Scale 1-3) 08/08/20 14:00 09/07/20 13:59 08/13/20 17:02 Acetaminophen (Tylenol) 650 mg Q6H PRN NG Temp >100.5 08/08/20 14:00 09/07/20 13:59 Albuterol/ Ipratropium (Albuterol/ Ipratropium) 3 ml Q4H PRN HHN Shortness of Breath 08/12/20 09:00 08/17/20 08:59 Albuterol/ Ipratropium (Albuterol/ Ipratropium) 3 ml Q8HRT HHN 08/12/20 09:00 08/17/20 08:59 08/15/20 14:46 Barium Sulfate (Varibar Honey) 250 ml NOW PRN MC RAD 08/14/20 18:45 08/17/20 18:36 Barium Sulfate (Varibar [place]) 240 ml NOW PRN MC RAD 08/14/20 18:45 08/17/20 18:36 Barium Sulfate (Varibar Pudding) 230 ml NOW PRN MC RAD 08/14/20 18:45 08/17/20 18:36 Barium Sulfate (Varibar Thin Liquid powder) 148 gm NOW PRN MC RAD 08/14/20 18:45 08/17/20 18:36 Cefepime HCl 2 gm/ Dextrose 110 ml @ 220 mls/hr EVERY 12 HOURS IV 08/05/20 21:00 08/18/20 23:59 08/15/20 09:07 Chlorhexidine Gluconate (Maddie-Hex 2%) 1 applic DAILY@2000 TOPIC 08/07/20 20:00 11/05/20 19:59 08/14/20 19:55 Dextrose/Sodium Chloride 1,000 ml @ 75 mls/hr [id number] IV 08/06/20 11:00 09/05/20 10:59 08/15/20 09:07 Docusate Sodium (Colace) 100 mg EVERY 12 HOURS NG 08/13/20 21:00 09/11/20 17:59 08/15/20 09:06 Enoxaparin Sodium (Lovenox) 60 mg EVERY 12 HOURS SUBQ 08/05/20 21:00 11/03/20 20:59 08/15/20 09:06 Famotidine (Pepcid I.v.) 20 mg Q12HR IVP 08/06/20 11:00 09/05/20 10:59 08/15/20 09:07 Gabapentin (Neurontin) 300 mg EVERY 8 HOURS NG 08/08/20 22:00 09/04/20 08:59 08/15/20 09:06 Methylprednisolone Sodium Succinate (Solu-MEDROL) 40 mg EVERY 6 HOURS IVP 08/05/20 12:00 11/03/20 11:59 08/15/20 17:22 Metronidazole 100 ml @ 100 mls/hr Q8HR IVPB 08/09/20 22:00 08/16/20 21:59 08/15/20 14:17 Polyethylene Glycol (Miralax) 17 gm BEDTIME ORAL 08/12/20 21:00 09/11/20 20:59 08/14/20 19:55 Vancomycin HCl 250 ml @ 166.667 mls/hr Q8HR@0400,1200,2000 IVPB 08/08/20 20:00 08/16/20 23:59 08/15/20 12:52 Vancomycin HCl (Vanco pharmacy to dose) 1 ea DAILY PRN MISC Per rx protocol 08/04/20 09:15 09/03/20 09:14 Kemar Nichole MD Aug 15, 2020 17:54
--- NOTE | 2020-08-15 19:05 | NUR ---
NURSE NOTES: Recieved patient from [facility] under the care of Dr. Saul for the admitting dx. of COPD exacerbation, respiratory distress, and sepsis r/t UTI. Patient is noted allergic to PCN and phenytoin. Noted Full code status. 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 Fall, aspiration, isolation, and seizure precautions observed and maintained at all times. Patient is alert and oriented to self, with periods of confusion. patient is tolerating meds well. On 2lpm via [place] tolerating settings well. Will continue to monitor.
[2020-08-15] MEDS: Miralax 17gm pkt ORAL SCH (20:52)
[2020-08-15] MEDS: Dyna-Hex 2% Top Sol 2oz TOPIC SCH (20:52)
--- NOTE | 2020-08-15 21:00 | NUR ---
NURSE NOTES: Patient is awake and asked to watched "the game". TV channel changed to a sports program. Patient denies any pain at this time. Will continue to monitor.
[2020-08-16] VITALS: BP 109/64
--- NOTE | 2020-08-16 | NUR ---
NURSE NOTES: Patient asleep, tolerating IV meds well. No acute distress noted. Will continue to monitor.
[2020-08-16] MEDS: Solu-MEDROL 40mg Inj IVP SCH ×5 (00:14→23:31)
--- NOTE | 2020-08-16 03:00 | NUR ---
NURSE NOTES: Patient continues to be asleep. No acute distress noted. Will continue to monitor.
[2020-08-16 04:00] VITALS: BP 137/80
[2020-08-16] MEDS: Vancomycin 1.25gm/250ml Premix IVPB SCH ×3 (04:01→20:00)
[2020-08-16] MEDS: Gabapentin 300 MG/6 ML Soln NG SCH ×3 (05:17→21:13)
[2020-08-16 05:54] LABS: HEMATOCRIT 29.4 % (42.0-52.0); HEMOGLOBIN 9.1 G/DL (14.2-18.0); MEAN CORPUSCULAR VOLUME 89 FL (80-99); PLATELET COUNT 290 K/UL (150-450); RED BLOOD COUNT 3.32 M/UL (4.70-6.10); RED CELL DISTRIBUTION WIDTH 14.8 % (11.6-14.8); WHITE BLOOD COUNT 10.9 K/UL (4.8-10.8)
--- NOTE | 2020-08-16 06:00 | NUR ---
NURSE NOTES: Patient noted drifting in and out of sleep. Continues to deny any pain and any distress. Will continue to monitor.
[2020-08-16 06:54] LABS: ALANINE AMINOTRANSFERASE 37 U/L (12-78); ALBUMIN 2.5 G/DL (3.4-5.0); ALBUMIN/GLOBULIN RATIO 0.8 (1.0-2.7); ALKALINE PHOSPHATASE 44 U/L (46-116); ANION GAP 4 mmol/L (5-15); ASPARTATE AMINO TRANSFERASE 32 U/L (15-37); BILIRUBIN,TOTAL 0.4 MG/DL (0.2-1.0); BLOOD UREA NITROGEN 13 mg/dL (7-18); CARBON DIOXIDE 36 MMOL/L (21-32); CHLORIDE 102 MMOL/L (98-107); CREATININE 0.7 MG/DL (0.55-1.30); PHOSPHORUS 3.2 MG/DL (2.5-4.9); POTASSIUM 3.4 MMOL/L (3.5-5.1); SODIUM 142 MMOL/L (136-145)
--- NOTE | 2020-08-16 07:10 | NUR ---
NURSE HAND-OFF REPORT: Important Events on Shift: - Patient Status: Stable Diet: low Na regular consistency Pending Orders: Pending Results/Labs: Pending MD notification: Latest Vital Signs: Temperature 99.1 , Pulse 80 , B/P 137 /80 , Respiratory Rate 24 , O2 SAT 100 , Venturi Mask, O2 Flow Rate 2.0 . Vital Sign Comment: WNL EKG Rhythm: Sinus Rhythm Rhythm change?: N MD Notified?: - MD Response: Latest Castro Fall Score: 50 Fall Risk: High Risk Safety Measures: Call light Within Reach, Bed Alarm Zone 1, Side Rails Side Rails x2, Bed position Low and Locked. Fall Precautions: Yellow Socks Yellow Gown Door Sign Patient Fall Education Report given to ION Truong.
--- NOTE | 2020-08-16 07:15 | NUR ---
NURSE NOTES: Received report from ION Subramanian. Patient in bed resting, no active s/s cardiac, respiratory distress noticed at this time, Patient on NC 2L O2 sat 99% at this time. PICC line on right upper arm, flushing, IVF D5 1/2 NS @ 75ml/h. Left hallux and left 1st toe purplish discoloration, DTI noted, picture taken, elevated, heels floating. Bed in lowest position, side rails upx3, call light within reach, bed alarm on, Will continue to monitor.
[2020-08-16 08:00] VITALS: BP 135/77
[2020-08-16] MEDS: Albuterol/Ipratropium 3ml neb HHN SCH ×3 (08:18→22:58)
[2020-08-16] MEDS: Docusate 100mg/10ml Liq NG SCH ×2 (09:04→21:12)
[2020-08-16] MEDS: Cefepime 2gm/D5W 110ml IV SCH ×4 (09:04→21:12)
[2020-08-16] MEDS: Enoxaparin 60mg Inj SUBQ SCH ×2 (09:19→21:15)
--- NOTE | 2020-08-16 10:51 | Pulmonology Progress Note ---
Subjective ROS Limited/Unobtainable: Yes Interval Events: Intubated 08/05/20; extubated 08/14/20 Constitutional: Reports: fatigue, other - extubated, alert ; Denies: fever HEENT: Repors: no symptoms Respiratory: Reports: shortness of breath Cardiovascular: Reports: no symptoms Gastrointestinal/Abdominal: Denies: vomiting, diarrhea Genitourinary: Reports: no symptoms Neurologic: Reports: no symptoms Psychiatric: Reports: other - NA Skin: Denies: rash Musculoskeletal: Denies: pain Allergies: Coded Allergies: PENICILLINS (Verified Allergy, Unknown, 03/10/20) PHENYTOIN (Verified Allergy, Unknown, 03/10/20) Objective Last 24 Hour Vital Signs Date Time Temp Pulse Resp B/P (MAP) Pulse Ox O2 Delivery O2 Flow Rate FiO2 08/16/20 08:19 69 22 100 Nasal Cannula 2.0 70 22 100 08/16/20 08:19 100 Nasal Cannula 2.0 28 08/16/20 08:00 98.1 80 20 135/77 (96) 100 08/16/20 08:00 78 08/16/20 08:00 Nasal Cannula 2.0 08/16/20 04:00 Nasal Cannula 2.0 08/16/20 04:00 80 08/16/20 04:00 99.1 86 24 137/80 (99) 100 08/16/20 00:00 Nasal Cannula 2.0 08/16/20 00:00 98.3 80 28 109/64 (79) 100 08/15/20 23:53 77 08/15/20 23:05 79 24 100 Nasal Cannula 2.0 84 24 100 08/15/20 20:00 Nasal Cannula 2.0 08/15/20 20:00 97.9 87 28 139/77 (97) 100 08/15/20 19:43 96 Nasal Cannula 2.0 28 08/15/20 18:00 87 40 91/56 (68) 100 08/15/20 17:00 86 35 118/65 (82) 100 08/15/20 16:00 90 37 107/61 (76) 100 08/15/20 16:00 Nasal Cannula 2.0 08/15/20 16:00 89 08/15/20 15:00 88 41 116/71 (86) 100 08/15/20 14:47 84 26 100 Nasal Cannula 2.0 28 81 28 100 08/15/20 14:00 85 35 99/72 (81) 100 08/15/20 13:00 97.5 81 30 113/87 (96) 100 08/15/20 12:00 Nasal Cannula 2.0 08/15/20 12:00 82 08/15/20 12:00 81 33 119/74 (89) 100 08/15/20 11:00 103 36 113/64 (80) 100 Intake and Output 08/15/20 08/16/20 19:00 07:00 Intake Total 50 ml Output Total 1550 ml 3500 ml Balance -1550 ml -3450 ml Intake Oral 50 ml Output Urine Total 1550 ml 3500 ml General Appearance: no acute distress HEENT: normocephalic Respiratory: chest wall non-tender, lungs clear Cardiovascular: normal peripheral pulses, normal rate Abdomen: normal bowel sounds Extremities: no cyanosis Laboratory Tests 08/16/20 04:03: White Blood Count 10.9H, Red Blood Count 3.32L, Hemoglobin 9.1L, Hematocrit 29.4L, Mean Corpuscular Volume 89, Mean Corpuscular Hemoglobin 27.3, Mean Corpuscular Hemoglobin Concent 30.8L, Red Cell Distribution Width 14.8, Platelet Count 290, Mean Platelet Volume 6.2L, Neutrophils (%) (Auto) , Lymphocytes (%) (Auto) , Monocytes (%) (Auto) , Eosinophils (%) (Auto) , Basophils (%) (Auto) , Differential Total Cells Counted 100, Neutrophils % (Manual) 91H, Lymphocytes % (Manual) 6L, Monocytes % (Manual) 3, Eosinophils % (Manual) 0, Basophils % (Manual) 0, Band Neutrophils 0, Platelet Estimate Adequate, Platelet Morphology Normal, Hypochromasia 1+, Anisocytosis 1+, Sodium Level 142, Potassium Level 3.4L, Chloride Level 102, Carbon Dioxide Level 36H, Anion Gap 4L, Blood Urea Nitrogen 13, Creatinine 0.7, Estimat Glomerular Filtration Rate > 60, Glucose Level 123H, Calcium Level 9.0, Phosphorus Level 3.2, Magnesium Level 2.1, Total Bilirubin 0.4, Aspartate Amino Transf (AST/SGOT) 32, Alanine Aminotransferase (ALT/SGPT) 37, Alkaline Phosphatase 44L, C-Reactive Protein, Quantitative < 0.4, Pro-B-Type Natriuretic Peptide 431H, Total Protein 5.5L, Albumin 2.5L, Globulin 3.0, Albumin/Globulin Ratio 0.8L Current Medications Medications (Trade) Dose Ordered Sig/Armand Route PRN Reason Start Time Stop Time Status Last Admin Dose Admin Acetaminophen (Tylenol) 650 mg Q6H PRN NG Mild Pain (Pain Scale 1-3) 08/08/20 14:00 09/07/20 13:59 08/13/20 17:02 Acetaminophen (Tylenol) 650 mg Q6H PRN NG Temp >100.5 08/08/20 14:00 09/07/20 13:59 Albuterol/ Ipratropium (Albuterol/ Ipratropium) 3 ml Q4H PRN HHN Shortness of Breath 08/12/20 09:00 08/17/20 08:59 Albuterol/ Ipratropium (Albuterol/ Ipratropium) 3 ml Q8HRT HHN 08/12/20 09:00 08/17/20 08:59 08/16/20 08:18 Barium Sulfate (Varibar Honey) 250 ml NOW PRN MC RAD 08/14/20 18:45 08/17/20 18:36 Barium Sulfate (Varibar [place]) 240 ml NOW PRN RAD 08/14/20 18:45 08/17/20 18:36 Barium Sulfate (Varibar Pudding) 230 ml NOW PRN RAD 08/14/20 18:45 08/17/20 18:36 Barium Sulfate (Varibar Thin Liquid powder) 148 gm NOW PRN RAD 08/14/20 18:45 08/17/20 18:36 Cefepime HCl 2 gm/ Dextrose 110 ml @ 220 mls/hr EVERY 12 HOURS IV 08/05/20 21:00 08/18/20 23:59 08/16/20 09:04 Chlorhexidine Gluconate (Maddie-Hex 2%) 1 applic DAILY@2000 TOPIC 08/07/20 20:00 11/05/20 19:59 08/15/20 20:52 Dextrose/Sodium Chloride 1,000 ml @ 75 mls/hr [id number] IV 08/06/20 11:00 09/05/20 10:59 08/15/20 22:31 Docusate Sodium (Colace) 100 mg EVERY 12 HOURS NG 08/13/20 21:00 09/11/20 17:59 08/16/20 09:04 Enoxaparin Sodium (Lovenox) 60 mg EVERY 12 HOURS SUBQ 08/05/20 21:00 11/03/20 20:59 08/16/20 09:19 Famotidine (Pepcid I.v.) 20 mg Q12HR IVP 08/06/20 11:00 09/05/20 10:59 08/16/20 09:04 Gabapentin (Neurontin) 300 mg EVERY 8 HOURS NG 08/08/20 22:00 09/04/20 08:59 08/16/20 05:17 Methylprednisolone Sodium Succinate (Solu-MEDROL) 40 mg EVERY 6 HOURS IVP 08/05/20 12:00 11/03/20 11:59 08/16/20 05:17 Metronidazole 100 ml @ 100 mls/hr Q8HR IVPB 08/09/20 22:00 08/16/20 21:59 08/16/20 05:17 Polyethylene Glycol (Miralax) 17 gm BEDTIME ORAL 08/12/20 21:00 09/11/20 20:59 08/15/20 20:52 Vancomycin HCl 250 ml @ 166.667 mls/hr Q8HR@0400,1200,2000 IVPB 08/08/20 20:00 08/16/20 23:59 08/16/20 04:01 Vancomycin HCl ([facility] pharmacy to dose) 1 ea DAILY PRN MISC Per rx protocol 08/04/20 09:15 09/03/20 09:14 Assessment/Plan Assessment/Plan 1. UTI -On empiric antibiotics -Follow-up UCx negative (08/03) 2. Pneumonia -On broad-spectrum antibiotics - CXR concerning for volume loss; reviewed chest CT - CT chest shows dense RUL and RML consolidation - High suspicion for RBI narrowing ; no obvious endobronchial narrowing noted on bronchoscopy 3. COPD exacerbation -Now extubated 4. Respiratory distress - Continue steroids 5. History of seizures -Risk of aspiration -Monitor for seizure activity 6. Elevated CRP -D-dimer wnl -His outpatient medications include Eliquis (hx of A fib?) - Continue Eliquis 7. Monitor carefully, may transfer to tele Continue medications The care for this patient was discussed with my supervising physician Time spent for this case was approximately 31 minutes Edwin Beckham Aug 16, 2020 10:51
[2020-08-16] MEDS ORDERED: Heparin Sod 1000 units/ml 10ml INJ ONE (11:00)
--- NOTE | 2020-08-16 11:11 | Surgery Progress Note ---
Surgery Progress Note Subjective Additional Comments improved downgraded picc line slughish plan cathflow hep lock Objective Last 24 Hour Vital Signs Date Time Temp Pulse Resp B/P (MAP) Pulse Ox O2 Delivery O2 Flow Rate FiO2 08/16/20 08:19 69 22 100 Nasal Cannula 2.0 28 70 22 100 08/16/20 08:19 100 Nasal Cannula 2.0 28 08/16/20 08:00 98.1 80 20 135/77 (96) 100 08/16/20 08:00 78 08/16/20 08:00 Nasal Cannula 2.0 08/16/20 04:00 Nasal Cannula 2.0 08/16/20 04:00 80 08/16/20 04:00 99.1 86 24 137/80 (99) 100 08/16/20 00:00 Nasal Cannula 2.0 08/16/20 00:00 98.3 80 28 109/64 (79) 100 08/15/20 23:53 77 08/15/20 23:05 79 24 100 Nasal Cannula 2.0 28 84 24 100 08/15/20 20:00 Nasal Cannula 2.0 08/15/20 20:00 97.9 87 28 139/77 (97) 100 08/15/20 19:43 96 Nasal Cannula 2.0 28 08/15/20 18:00 87 40 91/56 (68) 100 08/15/20 17:00 86 35 118/65 (82) 100 08/15/20 16:00 90 37 107/61 (76) 100 08/15/20 16:00 Nasal Cannula 2.0 08/15/20 16:00 89 08/15/20 15:00 88 41 116/71 (86) 100 08/15/20 14:47 84 26 100 Nasal Cannula 2.0 28 81 28 100 08/15/20 14:00 85 35 99/72 (81) 100 08/15/20 13:00 97.5 81 30 113/87 (96) 100 08/15/20 12:00 Nasal Cannula 2.0 08/15/20 12:00 82 08/15/20 12:00 81 33 119/74 (89) 100 I&O Intake and Output 08/15/20 08/16/20 19:00 07:00 Intake Total 50 ml Output Total 1550 ml 3500 ml Balance -1550 ml -3450 ml Intake Oral 50 ml Output Urine Total 1550 ml 3500 ml Dressing: saturated Cardiovascular: RSR Respiratory: clear, decreased breath sounds Abdomen: soft, non-tender, present bowel sounds, non-distended Extremities: no edema, no tenderness, no cyanosis Laboratory Tests Test 08/16/20 04:03 White Blood Count 10.9 K/UL (4.8-10.8) H Red Blood Count 3.32 M/UL (4.70-6.10) L Hemoglobin 9.1 G/DL (14.2-18.0) L Hematocrit 29.4 % (42.0-52.0) L Mean Corpuscular Volume 89 FL (80-99) Mean Corpuscular Hemoglobin 27.3 PG (27.0-31.0) Mean Corpuscular Hemoglobin Concent 30.8 G/DL (32.0-36.0) L Red Cell Distribution Width 14.8 % (11.6-14.8) Platelet Count 290 K/UL (150-450) Mean Platelet Volume 6.2 FL (6.5-10.1) L Neutrophils (%) (Auto) % (45.0-75.0) Lymphocytes (%) (Auto) % (20.0-45.0) Monocytes (%) (Auto) % (1.0-10.0) Eosinophils (%) (Auto) % (0.0-3.0) Basophils (%) (Auto) % (0.0-2.0) Differential Total Cells Counted 100 Neutrophils % (Manual) 91 % (45-75) H Lymphocytes % (Manual) 6 % (20-45) L Monocytes % (Manual) 3 % (1-10) Eosinophils % (Manual) 0 % (0-3) Basophils % (Manual) 0 % (0-2) Band Neutrophils 0 % (0-8) Platelet Estimate Adequate Platelet Morphology Normal Hypochromasia 1+ Anisocytosis 1+ Sodium Level 142 MMOL/L (136-145) Potassium Level 3.4 MMOL/L (3.5-5.1) L Chloride Level 102 MMOL/L (98-107) Carbon Dioxide Level 36 MMOL/L (21-32) H Anion Gap 4 mmol/L (5-15) L Blood Urea Nitrogen 13 mg/dL (7-18) Creatinine 0.7 MG/DL (0.55-1.30) Estimat Glomerular Filtration Rate > 60 mL/min (>60) Glucose Level 123 MG/DL (74-106) H Calcium Level 9.0 MG/DL (8.5-10.1) Phosphorus Level 3.2 MG/DL (2.5-4.9) Magnesium Level 2.1 MG/DL (1.8-2.4) Total Bilirubin 0.4 MG/DL (0.2-1.0) Aspartate Amino Transf (AST/SGOT) 32 U/L (15-37) Alanine Aminotransferase (ALT/SGPT) 37 U/L (12-78) Alkaline Phosphatase 44 U/L (46-116) L C-Reactive Protein, Quantitative < 0.4 mg/dL (0.00-0.90) Pro-B-Type Natriuretic Peptide 431 pg/mL (0-125) H Total Protein 5.5 G/DL (6.4-8.2) L Albumin 2.5 G/DL (3.4-5.0) L Globulin 3.0 g/dL Albumin/Globulin Ratio 0.8 (1.0-2.7) L Plan Problems: (1) Abdominal distension Assessment & Plan: 79M abdominal distention, respiratory decline, altered mental status. on exam noted abd soft, mild distended, non tender. no n/v/f/c. unlikely aspiration. non tender one exam. pending urine and covid test. no acute surgical intervention. hold on ct. kub ordered. will follow with exam and recs. keep npo for now. iv fluids. respiratory pulm support. will follow with recs thank you decline since admission now intubated ng tube to suction no acute surgical intervention cont abx kub noted wean vent enema when stable The rectum is considerably distended with stool. Considerable stool is also seen in the descending colon. The colon is diffusely gas filled, upper limits of normal in caliber. No significant small bowel gas demonstrated. No masses or unusual calcifications. The included lung bases demonstrate bilateral right greater than left pleural effusions. There is a Butler catheter Impression: Distended stool-filled rectum, fecal impaction possible Gas-filled upper limits of normal caliber colon, nonspecific Bilateral right greater than left pleural effusions (2) UTI (urinary tract infection) (3) Pneumonia (4) Multiple pulmonary nodules (5) Respiratory failure with hypoxia Assessment & Plan: cont weaning (6) Pneumonia due to COVID-19 virus (7) History of CVA (cerebrovascular accident) (8) COPD (chronic obstructive pulmonary disease) (9) HTN (hypertension) (10) Hx of prostatic malignancy (11) Major depression (12) Seizure disorder Destin Brown Aug 16, 2020 11:11
[2020-08-16] MEDS: D5 1/2NS 1,000 ML IV SCH ×2 (11:28→23:50)
[2020-08-16 11:36] VITALS: BP 115/75
--- NOTE | 2020-08-16 12:44 | Nephrology Progress Note ---
Assessment/Plan Problem List: (1) Oliguria (2) Electrolyte imbalance (3) Pneumonia (4) Respiratory failure with hypoxia (5) Pneumonia due to COVID-19 virus (6) Seizure disorder (7) Anemia Assessment Sepsis, respiratory failure Pneumonia and possible aspiration. Questionable COVID-19 infection UTI Abnormal electrolytes Questionable CHF Anemia Plan August 16: Post extubation. Tolerating well. Labs reviewed. Low potassium addressed. Continue per consultants. Stable from renal standpoint of view. Full code. August 15: Patient extubated on oxygen with cannula. Variable asking for coffee. Renal parameters stable. Continue per consultants. August 14: Status unchanged. Remains full code, intubated, on ventilator, FiO2 of 40%. Labs reviewed. Renal parameters stable. Hemoglobin lower. Suggest transfusion. August 13: Status quo. Remains full code, intubated, on FiO2 of 40%. Labs reviewed. Renal parameters stable. Continue per consultants. August 12: Intubated on ventilator. FiO2 40% unchanged. Full code. Labs reviewed. Renal parameters stable. Continue per consultants. August 11: Intubated on ventilator. O2 40%. Full code. Medication list reviewed. Labs reviewed. Stable from renal standpoint of view. Continue per consultants. August 10: Status quo. Intubated on ventilator. FiO2 remains 40%. Renal parameters stable. Continue per current management. Potassium and phosphorus supplement given August 09: Full code. Intubated on ventilator. FiO2 40%. Labs reviewed. Stable from renal standpoint of view. August 08: Labs reviewed. Renal parameters stable. Abnormal electrolytes addressed. Remains full code. FiO2 50%. Continue per consultants. Discussed with RN. August 07: Labs reviewed. K Phos IV given. Patient intubated. Full code. FiO2 60%. Medication list reviewed. Continue per consultants. Previously: Optimize pulmonary status Optimize cardiac status Monitor renal parameters, urine output, electrolytes Change IV to half-normal saline Anemia mansfield Insert NG tube and start feeding Per orders Subjective ROS Limited/Unobtainable: No Constitutional: Reports: malaise Objective Objective Last 24 Hour Vital Signs Date Time Temp Pulse Resp B/P (MAP) Pulse Ox O2 Delivery O2 Flow Rate FiO2 08/16/20 12:00 Nasal Cannula 2.0 08/16/20 12:00 85 08/16/20 11:36 98.1 82 20 115/75 (88) 100 08/16/20 08:19 69 22 100 Nasal Cannula 2.0 28 70 22 100 08/16/20 08:19 100 Nasal Cannula 2.0 28 08/16/20 08:00 98.1 80 20 135/77 (96) 100 08/16/20 08:00 78 08/16/20 08:00 Nasal Cannula 2.0 08/16/20 04:00 Nasal Cannula 2.0 08/16/20 04:00 80 08/16/20 04:00 99.1 86 24 137/80 (99) 100 08/16/20 00:00 Nasal Cannula 2.0 08/16/20 00:00 98.3 80 28 109/64 (79) 100 08/15/20 23:53 77 08/15/20 23:05 79 24 100 Nasal Cannula 2.0 28 84 24 100 08/15/20 20:00 Nasal Cannula 2.0 08/15/20 20:00 97.9 87 28 139/77 (97) 100 08/15/20 19:43 96 Nasal Cannula 2.0 28 08/15/20 18:00 87 40 91/56 (68) 100 08/15/20 17:00 86 35 118/65 (82) 100 08/15/20 16:00 90 37 107/61 (76) 100 08/15/20 16:00 Nasal Cannula 2.0 08/15/20 16:00 89 08/15/20 15:00 88 41 116/71 (86) 100 08/15/20 14:47 84 26 100 Nasal Cannula 2.0 81 28 100 08/15/20 14:00 85 35 99/72 (81) 100 08/15/20 13:00 97.5 81 30 113/87 (96) 100 Intake and Output 08/15/20 08/16/20 19:00 07:00 Intake Total 50 ml Output Total 1550 ml 3500 ml Balance -1550 ml -3450 ml Intake Oral 50 ml Output Urine Total 1550 ml 3500 ml Current Medications Medications (Trade) Dose Ordered Sig/Armand Route PRN Reason Start Time Stop Time Status Last Admin Dose Admin Acetaminophen (Tylenol) 650 mg Q6H PRN NG Mild Pain (Pain Scale 1-3) 08/08/20 14:00 09/07/20 13:59 08/13/20 17:02 Acetaminophen (Tylenol) 650 mg Q6H PRN NG Temp >100.5 08/08/20 14:00 09/07/20 13:59 Albuterol/ Ipratropium (Albuterol/ Ipratropium) 3 ml Q4H PRN HHN Shortness of Breath 08/12/20 09:00 08/17/20 08:59 Albuterol/ Ipratropium (Albuterol/ Ipratropium) 3 ml Q8HRT HHN 08/12/20 09:00 08/17/20 08:59 08/16/20 08:18 Barium Sulfate (Varibar Honey) 250 ml NOW PRN MC RAD 08/14/20 18:45 08/17/20 18:36 Barium Sulfate (Varibar [place]) 240 ml NOW PRN MC RAD 08/14/20 18:45 08/17/20 18:36 Barium Sulfate (Varibar Pudding) 230 ml NOW PRN RAD 08/14/20 18:45 08/17/20 18:36 Barium Sulfate (Varibar Thin Liquid powder) 148 gm NOW PRN RAD 08/14/20 18:45 08/17/20 18:36 Cefepime HCl 2 gm/ Dextrose 110 ml @ 220 mls/hr EVERY 12 HOURS IV 08/05/20 21:00 08/18/20 23:59 08/16/20 09:04 Chlorhexidine Gluconate (Maddie-Hex 2%) 1 applic DAILY@2000 TOPIC 08/07/20 20:00 11/05/20 19:59 08/15/20 20:52 Dextrose/Sodium Chloride 1,000 ml @ 75 mls/hr [id number] IV 08/06/20 11:00 09/05/20 10:59 08/16/20 11:28 Docusate Sodium (Colace) 100 mg EVERY 12 HOURS NG 08/13/20 21:00 09/11/20 17:59 08/16/20 09:04 Enoxaparin Sodium (Lovenox) 60 mg EVERY 12 HOURS SUBQ 08/05/20 21:00 11/03/20 20:59 08/16/20 09:19 Famotidine (Pepcid I.v.) 20 mg Q12HR IVP 08/06/20 11:00 09/05/20 10:59 08/16/20 09:04 Gabapentin (Neurontin) 300 mg EVERY 8 HOURS NG 08/08/20 22:00 09/04/20 08:59 08/16/20 05:17 Methylprednisolone Sodium Succinate (Solu-MEDROL) 40 mg EVERY 6 HOURS IVP 08/05/20 12:00 11/03/20 11:59 08/16/20 11:28 Metronidazole 100 ml @ 100 mls/hr Q8HR IVPB 08/09/20 22:00 08/16/20 21:59 08/16/20 05:17 Polyethylene Glycol (Miralax) 17 gm BEDTIME ORAL 08/12/20 21:00 09/11/20 20:59 08/15/20 20:52 Potassium Chloride (K-Dur) 40 meq ONCE ORAL 08/16/20 11:30 08/16/20 13:30 08/16/20 11:28 Vancomycin HCl 250 ml @ 166.667 mls/hr Q8HR@0400,1200,2000 IVPB 08/08/20 20:00 08/16/20 23:59 08/16/20 11:27 Vancomycin HCl ([facility] pharmacy to dose) 1 ea DAILY PRN MISC Per rx protocol 08/04/20 09:15 09/03/20 09:14 Laboratory Tests 08/16/20 04:03: White Blood Count 10.9H, Red Blood Count 3.32L, Hemoglobin 9.1L, Hematocrit 29.4L, Mean Corpuscular Volume 89, Mean Corpuscular Hemoglobin 27.3, Mean Corpuscular Hemoglobin Concent 30.8L, Red Cell Distribution Width 14.8, Platelet Count 290, Mean Platelet Volume 6.2L, Neutrophils (%) (Auto) , Lymphocytes (%) (Auto) , Monocytes (%) (Auto) , Eosinophils (%) (Auto) , Basophils (%) (Auto) , Differential Total Cells Counted 100, Neutrophils % (Manual) 91H, Lymphocytes % (Manual) 6L, Monocytes % (Manual) 3, Eosinophils % (Manual) 0, Basophils % (Manual) 0, Band Neutrophils 0, Platelet Estimate Adequate, Platelet Morphology Normal, Hypochromasia 1+, Anisocytosis 1+, Sodium Level 142, Potassium Level 3.4L, Chloride Level 102, Carbon Dioxide Level 36H, Anion Gap 4L, Blood Urea Nitrogen 13, Creatinine 0.7, Estimat Glomerular Filtration Rate > 60, Glucose Level 123H, Calcium Level 9.0, Phosphorus Level 3.2, Magnesium Level 2.1, Total Bilirubin 0.4, Aspartate Amino Transf (AST/SGOT) 32, Alanine Aminotransferase (ALT/SGPT) 37, Alkaline Phosphatase 44L, C-Reactive Protein, Quantitative < 0.4, Pro-B-Type Natriuretic Peptide 431H, Total Protein 5.5L, Albumin 2.5L, Globulin 3.0, Albumin/Globulin Ratio 0.8L Height (Feet): 6 Height (Inches): 1.00 Weight (Pounds): 190 General Appearance: no apparent distress Cardiovascular: tachycardia Respiratory/Chest: decreased breath sounds Abdomen: distended Aashish Burgess MD Aug 16, 2020 12:44
--- NOTE | 2020-08-16 13:58 | Cardiac Electrophysiology PN ---
Assessment/Plan Assessment/Plan 1. Respiratory failure. On IV antibiotic. Extubated 08/14/20 Echo showed EF 50% 2. Questionable congestive heart failure. EF normal and BNP is only 39. 3. S/P Septic shock, now off Levo 4. History of COVID pneumonia, status post vaccination for COVID. Currently on IV antibiotic and prednisone. Now off isolation 5. Questionable history of atrial fibrillation versus DVT on Eliquis 2.5 mg b.i.d. Currently in SR 6. Full Code Subjective Subjective Out of ICU extubated 08/14/20 In SR. Off restraints off fentanyl drip Off pressors Objective Last 24 Hour Vital Signs Date Time Temp Pulse Resp B/P (MAP) Pulse Ox O2 Delivery O2 Flow Rate FiO2 08/16/20 12:00 Nasal Cannula 2.0 08/16/20 12:00 85 08/16/20 11:36 98.1 82 20 115/75 (88) 100 08/16/20 08:19 69 22 100 Nasal Cannula 2.0 28 70 22 100 08/16/20 08:19 100 Nasal Cannula 2.0 28 08/16/20 08:00 98.1 80 20 135/77 (96) 100 08/16/20 08:00 78 08/16/20 08:00 Nasal Cannula 2.0 08/16/20 04:00 Nasal Cannula 2.0 08/16/20 04:00 80 08/16/20 04:00 99.1 86 24 137/80 (99) 100 08/16/20 00:00 Nasal Cannula 2.0 08/16/20 00:00 98.3 80 28 109/64 (79) 100 08/15/20 23:53 77 08/15/20 23:05 79 24 100 Nasal Cannula 2.0 28 84 24 100 08/15/20 20:00 Nasal Cannula 2.0 08/15/20 20:00 97.9 87 28 139/77 (97) 100 08/15/20 19:43 96 Nasal Cannula 2.0 28 08/15/20 18:00 87 40 91/56 (68) 100 08/15/20 17:00 86 35 118/65 (82) 100 08/15/20 16:00 90 37 107/61 (76) 100 08/15/20 16:00 Nasal Cannula 2.0 08/15/20 16:00 89 08/15/20 15:00 88 41 116/71 (86) 100 08/15/20 14:47 84 26 100 Nasal Cannula 2.0 28 81 28 100 08/15/20 14:00 85 35 99/72 (81) 100 Intake and Output 08/15/20 08/16/20 19:00 07:00 Intake Total 50 ml Output Total 1550 ml 3500 ml Balance -1550 ml -3450 ml Intake Oral 50 ml Output Urine Total 1550 ml 3500 ml Laboratory Tests Test 08/16/20 04:03 White Blood Count 10.9 K/UL (4.8-10.8) H Red Blood Count 3.32 M/UL (4.70-6.10) L Hemoglobin 9.1 G/DL (14.2-18.0) L Hematocrit 29.4 % (42.0-52.0) L Mean Corpuscular Volume 89 FL (80-99) Mean Corpuscular Hemoglobin 27.3 PG (27.0-31.0) Mean Corpuscular Hemoglobin Concent 30.8 G/DL (32.0-36.0) L Red Cell Distribution Width 14.8 % (11.6-14.8) Platelet Count 290 K/UL (150-450) Mean Platelet Volume 6.2 FL (6.5-10.1) L Neutrophils (%) (Auto) % (45.0-75.0) Lymphocytes (%) (Auto) % (20.0-45.0) Monocytes (%) (Auto) % (1.0-10.0) Eosinophils (%) (Auto) % (0.0-3.0) Basophils (%) (Auto) % (0.0-2.0) Differential Total Cells Counted 100 Neutrophils % (Manual) 91 % (45-75) H Lymphocytes % (Manual) 6 % (20-45) L Monocytes % (Manual) 3 % (1-10) Eosinophils % (Manual) 0 % (0-3) Basophils % (Manual) 0 % (0-2) Band Neutrophils 0 % (0-8) Platelet Estimate Adequate Platelet Morphology Normal Hypochromasia 1+ Anisocytosis 1+ Sodium Level 142 MMOL/L (136-145) Potassium Level 3.4 MMOL/L (3.5-5.1) L Chloride Level 102 MMOL/L (98-107) Carbon Dioxide Level 36 MMOL/L (21-32) H Anion Gap 4 mmol/L (5-15) L Blood Urea Nitrogen 13 mg/dL (7-18) Creatinine 0.7 MG/DL (0.55-1.30) Estimat Glomerular Filtration Rate > 60 mL/min (>60) Glucose Level 123 MG/DL (74-106) H Calcium Level 9.0 MG/DL (8.5-10.1) Phosphorus Level 3.2 MG/DL (2.5-4.9) Magnesium Level 2.1 MG/DL (1.8-2.4) Total Bilirubin 0.4 MG/DL (0.2-1.0) Aspartate Amino Transf (AST/SGOT) 32 U/L (15-37) Alanine Aminotransferase (ALT/SGPT) 37 U/L (12-78) Alkaline Phosphatase 44 U/L (46-116) L C-Reactive Protein, Quantitative < 0.4 mg/dL (0.00-0.90) Pro-B-Type Natriuretic Peptide 431 pg/mL (0-125) H Total Protein 5.5 G/DL (6.4-8.2) L Albumin 2.5 G/DL (3.4-5.0) L Globulin 3.0 g/dL Albumin/Globulin Ratio 0.8 (1.0-2.7) L Objective HEAD AND NECK: No JVD on 2 liter NC LUNGS: Coarse rhonchi. CARDIOVASCULAR: Regular S1 and S2 with no gallop. ABDOMEN: Soft. EXTREMITIES: 1 plus pitting edema. Devyn Magdaleno MD Aug 16, 2020 13:58
--- NOTE | 2020-08-16 14:49 | Internal Med Progress Note ---
Subjective Date of Service: Aug 16, 2020 Physician Name HickmanPablo Attending Physician Torres Saul MD Current Medications Medications (Trade) Dose Ordered Sig/Armand Route PRN Reason Start Time Stop Time Status Last Admin Dose Admin Acetaminophen (Tylenol) 650 mg Q6H PRN NG Mild Pain (Pain Scale 1-3) 08/08/20 14:00 09/07/20 13:59 08/13/20 17:02 Acetaminophen (Tylenol) 650 mg Q6H PRN NG Temp >100.5 08/08/20 14:00 09/07/20 13:59 Albuterol/ Ipratropium (Albuterol/ Ipratropium) 3 ml Q4H PRN HHN Shortness of Breath 08/12/20 09:00 08/17/20 08:59 Albuterol/ Ipratropium (Albuterol/ Ipratropium) 3 ml Q8HRT HHN 08/12/20 09:00 08/17/20 08:59 08/16/20 08:18 Barium Sulfate (Varibar Honey) 250 ml NOW PRN MC RAD 08/14/20 18:45 08/17/20 18:36 Barium Sulfate (Varibar [place]) 240 ml NOW PRN MC RAD 08/14/20 18:45 08/17/20 18:36 Barium Sulfate (Varibar Pudding) 230 ml NOW PRN MC RAD 08/14/20 18:45 08/17/20 18:36 Barium Sulfate (Varibar Thin Liquid powder) 148 gm NOW PRN MC RAD 08/14/20 18:45 08/17/20 18:36 Cefepime HCl 2 gm/ Dextrose 110 ml @ 220 mls/hr EVERY 12 HOURS IV 08/05/20 21:00 08/18/20 23:59 08/16/20 09:04 Chlorhexidine Gluconate (Maddie-Hex 2%) 1 applic DAILY@2000 TOPIC 08/07/20 20:00 11/05/20 19:59 08/15/20 20:52 Dextrose/Sodium Chloride 1,000 ml @ 75 mls/hr [id number] IV 08/06/20 11:00 09/05/20 10:59 08/16/20 11:28 Docusate Sodium (Colace) 100 mg EVERY 12 HOURS NG 08/13/20 21:00 09/11/20 17:59 08/16/20 09:04 Enoxaparin Sodium (Lovenox) 60 mg EVERY 12 HOURS SUBQ 08/05/20 21:00 11/03/20 20:59 08/16/20 09:19 Famotidine (Pepcid I.v.) 20 mg Q12HR IVP 08/06/20 11:00 09/05/20 10:59 08/16/20 09:04 Gabapentin (Neurontin) 300 mg EVERY 8 HOURS NG 08/08/20 22:00 09/04/20 08:59 08/16/20 14:08 Methylprednisolone Sodium Succinate (Solu-MEDROL) 40 mg EVERY 6 HOURS IVP 08/05/20 12:00 11/03/20 11:59 08/16/20 11:28 Metronidazole 100 ml @ 100 mls/hr Q8HR IVPB 08/09/20 22:00 08/16/20 21:59 08/16/20 14:08 Polyethylene Glycol (Miralax) 17 gm BEDTIME ORAL 08/12/20 21:00 09/11/20 20:59 08/15/20 20:52 Vancomycin HCl 250 ml @ 166.667 mls/hr Q8HR@0400,1200,2000 IVPB 08/08/20 20:00 08/16/20 23:59 08/16/20 11:27 Vancomycin HCl (Vanco pharmacy to dose) 1 ea DAILY PRN MISC Per rx protocol 08/04/20 09:15 09/03/20 09:14 Allergies: Coded Allergies: PENICILLINS (Verified Allergy, Unknown, 03/10/20) PHENYTOIN (Verified Allergy, Unknown, 03/10/20) ROS Limited/Unobtainable: Yes Subjective 79 YO M admitted with respiratory distress. Now pneumonia. Cover for Int [facility]- Dr Saul. Step down unit. Extubated 08/14/20 Objective Last Vital Signs Date Time Temp Pulse Resp B/P (MAP) Pulse Ox O2 Delivery O2 Flow Rate FiO2 08/16/20 12:00 Nasal Cannula 2.0 08/16/20 12:00 85 08/16/20 11:36 98.1 20 115/75 (88) 100 08/16/20 08:19 28 Laboratory Tests Test 08/16/20 04:03 White Blood Count 10.9 K/UL (4.8-10.8) H Red Blood Count 3.32 M/UL (4.70-6.10) L Hemoglobin 9.1 G/DL (14.2-18.0) L Hematocrit 29.4 % (42.0-52.0) L Mean Corpuscular Volume 89 FL (80-99) Mean Corpuscular Hemoglobin 27.3 PG (27.0-31.0) Mean Corpuscular Hemoglobin Concent 30.8 G/DL (32.0-36.0) L Red Cell Distribution Width 14.8 % (11.6-14.8) Platelet Count 290 K/UL (150-450) Mean Platelet Volume 6.2 FL (6.5-10.1) L Neutrophils (%) (Auto) % (45.0-75.0) Lymphocytes (%) (Auto) % (20.0-45.0) Monocytes (%) (Auto) % (1.0-10.0) Eosinophils (%) (Auto) % (0.0-3.0) Basophils (%) (Auto) % (0.0-2.0) Differential Total Cells Counted 100 Neutrophils % (Manual) 91 % (45-75) H Lymphocytes % (Manual) 6 % (20-45) L Monocytes % (Manual) 3 % (1-10) Eosinophils % (Manual) 0 % (0-3) Basophils % (Manual) 0 % (0-2) Band Neutrophils 0 % (0-8) Platelet Estimate Adequate Platelet Morphology Normal Hypochromasia 1+ Anisocytosis 1+ Sodium Level 142 MMOL/L (136-145) Potassium Level 3.4 MMOL/L (3.5-5.1) L Chloride Level 102 MMOL/L (98-107) Carbon Dioxide Level 36 MMOL/L (21-32) H Anion Gap 4 mmol/L (5-15) L Blood Urea Nitrogen 13 mg/dL (7-18) Creatinine 0.7 MG/DL (0.55-1.30) Estimat Glomerular Filtration Rate > 60 mL/min (>60) Glucose Level 123 MG/DL (74-106) H Calcium Level 9.0 MG/DL (8.5-10.1) Phosphorus Level 3.2 MG/DL (2.5-4.9) Magnesium Level 2.1 MG/DL (1.8-2.4) Total Bilirubin 0.4 MG/DL (0.2-1.0) Aspartate Amino Transf (AST/SGOT) 32 U/L (15-37) Alanine Aminotransferase (ALT/SGPT) 37 U/L (12-78) Alkaline Phosphatase 44 U/L (46-116) L C-Reactive Protein, Quantitative < 0.4 mg/dL (0.00-0.90) Pro-B-Type Natriuretic Peptide 431 pg/mL (0-125) H Total Protein 5.5 G/DL (6.4-8.2) L Albumin 2.5 G/DL (3.4-5.0) L Globulin 3.0 g/dL Albumin/Globulin Ratio 0.8 (1.0-2.7) L Intake and Output 08/15/20 08/16/20 19:00 07:00 Intake Total 50 ml Output Total 1550 ml 3500 ml Balance -1550 ml -3450 ml Intake Oral 50 ml Output Urine Total 1550 ml 3500 ml Objective PHYSICAL EXAMINATION: GENERAL: The patient is well-developed, well-nourished male, in moderate respiratory distress. HEENT: Eyes, pupils are equal and responsive to light and accommodation. Extraocular movements are intact. NECK: Supple. No lymphadenopathy. CHEST: nasal canula; Lungs are clear to auscultation bilaterally without wheezes or rales. CARDIOVASCULAR: Regular rhythm and rate. S1-S2 are normal without murmurs, rubs, or gallops. ABDOMEN: Soft, nontender, and nondistended. Positive bowel sounds. No evidence of hepatosplenomegaly. Currently, no rebound or guarding noted. EXTREMITIES: Negative for clubbing, cyanosis, or edema. RECTAL/GENITAL: Not performed. NEUROLOGIC: Cranial nerves II through XII are grossly intact without focal deficits. Motor strength is 5/5 bilaterally. Deep tendon reflexes are 2+ plantar. Assessment/Plan Assessment/Plan ASSESSMENT: This is an 79-year-old male with. 1. Respiratory failure-intubated 08/05/20; extubated 08/14/20 2. Right-sided pneumonia. 3. Hypertension. 4. Congestive heart failure. 5. Chronic obstructive pulmonary disease. 6. Anemia. 7. Cerebrovascular disease, status post cerebrovascular accident. 8. Peripheral vascular disease. 9. Gastroesophageal reflux disease. 10. Major depression. 11. Seizure disorder. 12. History of COVID-19 positive in February 2020. 13. Benign prostatic hypertrophy. TREATMENT: 1. Respiratory failure/right-sided pneumonia pulmonary consultation= Dr. Micha Schneider. ABX= vancomycin and flagyl; S/P cefepime. Infectious Disease= Dr. Urrutia. Follow recommendations of Infectious Disease and Pulmonary. 2. Hypertension. The patient is currently hypotensive. 3. Congestive heart failure. 4. Chronic obstructive pulmonary disease. Continue DuoNeb as above. 5. Anemia. 6. Cerebrovascular disease. 7. Peripheral vascular disease. 8. Gastroesophageal reflux disease. Continue famotidine as above. 9. Major depression. Seizure disorder. 10. COVID-19 positive, history in February 2020. 11. Benign prostatic hypertrophy. Continue Flomax as above. Pablo Hickman MD Aug 16, 2020 14:49
[2020-08-16 16:00] VITALS: BP 131/74
--- NOTE | 2020-08-16 16:00 | NUR ---
NURSE NOTES: Central line removed per Dr. Nichole, no s/s bleeding noted at this time, IV on left hand 22G, asymptomatic, patent, intact.
--- NOTE | 2020-08-16 16:35 | NUR ---
PT Note PT steffen completed. Patient was uncooperative with eval/tx. Has B knee/hip flexion contractures. Patient is not a good candidate for physical therapy. Will DC physical therapy. Addendum: 08/16/20 at 1636 by VERONICA BATEMAN PT Amended: Links added.
--- NOTE | 2020-08-16 18:11 | NUR ---
NURSE NOTES: Per Dr. Nichole, culture tip from femoral TLC, order noted, entered.
--- NOTE | 2020-08-16 19:19 | NUR ---
NURSE HAND-OFF REPORT: Important Events on Shift: TLC removed, transfer tele Patient Status: stable, DTI on left foot noted Diet: pending ST Pending Orders: ST eval Pending Results/Labs:TLC tip culture Pending MD notification:na Latest Vital Signs: Temperature 97.0 , Pulse 87 , B/P 131 /74 , Respiratory Rate 22 , O2 SAT 98 , Venturi Mask, O2 Flow Rate 2.0 . Vital Sign Comment: stable EKG Rhythm: Sinus Rhythm Rhythm change?: N MD Notified?: - MD Response: Latest Castro Fall Score: 50 Fall Risk: High Risk Safety Measures: Call light Within Reach, Bed Alarm Zone 1, Side Rails Side Rails x2, Bed position Low and Locked. Fall Precautions: Yellow Socks Yellow Gown Door Sign Patient Fall Education Report given to ION Gatica.
--- NOTE | 2020-08-16 19:20 | NUR ---
NURSE NOTES: Got report from Haroverto/Graham RN. Patient in bed resting comfortably. No s/s of distress or discomfort noticed at this time. Pt on NC 2L O2 sat 98%. Pt A+Ox1 forgetful. Pt has bee 14 fr intact patent. PICC line on right upper arm intact patent w/ D5 1/2 NS@75. Pt has L hand 22g tko patent intact. Pt running Sinus rhythm on the monitor. Skin issues noted. Bed in lowest position, side rails upx3, call light within reach, bed alarm on, Will continue to monitor.
[2020-08-16 20:00] VITALS: BP 125/86
[2020-08-16] MEDS: Miralax 17gm pkt ORAL SCH (21:12)
[2020-08-16] MEDS: Dyna-Hex 2% Top Sol 2oz TOPIC SCH (21:12)
[2020-08-17] VITALS (7 sets, daily range): BP systolic 111–139; BP diastolic 66–84
[2020-08-17 05:23] LABS: BASOPHILS % (AUTO) 1.1 % (0.0-2.0); EOSINOPHILS % (AUTO) 0.1 % (0.0-3.0); HEMATOCRIT 32.3 % (42.0-52.0); LYMPHOCYTES % (AUTO) 5.5 % (20.0-45.0); MEAN CORPUSCULAR VOLUME 89 FL (80-99); MONOCYTES % (AUTO) 8.3 % (1.0-10.0); NEUTROPHILS % (AUTO) 84.9 % (45.0-75.0); PLATELET COUNT 286 K/UL (150-450); RED BLOOD COUNT 3.65 M/UL (4.70-6.10); RED CELL DISTRIBUTION WIDTH 15.1 % (11.6-14.8); WHITE BLOOD COUNT 11.4 K/UL (4.8-10.8)
[2020-08-17] MEDS: Solu-MEDROL 40mg Inj IVP SCH ×2 (05:43→21:01)
[2020-08-17] MEDS: Gabapentin 300 MG/6 ML Soln NG SCH ×4 (05:43→21:10)
[2020-08-17 05:44] LABS: ANION GAP 6 mmol/L (5-15); BLOOD UREA NITROGEN 11 mg/dL (7-18); CALCIUM 8.7 MG/DL (8.5-10.1); CARBON DIOXIDE 36 MMOL/L (21-32); CHLORIDE 101 MMOL/L (98-107); CREATININE 0.7 MG/DL (0.55-1.30); SODIUM 142 MMOL/L (136-145)
--- NOTE | 2020-08-17 07:00 | NUR ---
NURSE NOTES: Received report from ION Marion. Patient in bed resting, no active s/s cardiac, respiratory distress noticed at this time, Patient on NC 2L O2 sat 99% at this time. Tanisha Beckham made aware and received a new orders to Titrate O2 to maintain O2 Sat more than 90%. PICC line on right upper arm, flushing, IVF D5 1/2 NS @ 75ml/hr and red lumen only flush hardly and purple line not able to be flushed. Left hallux and left 1st toe purplish discoloration, DTI noted, picture taken, elevated, heels floating. Bed in lowest position, side rails upx3, call light within reach, bed alarm on, Will continue to monitor.
--- NOTE | 2020-08-17 07:00 | NUR ---
NURSE HAND-OFF REPORT: Important Events on Shift:[] Patient Status: [STABLE] Diet: [NPO] Pending Orders: [ST EVAL] Pending Results/Labs:[] Pending MD notification:[] Latest Vital Signs: Temperature 97.7 , Pulse 90 , B/P 119 /79 , Respiratory Rate 22 , O2 SAT 95 , Venturi Mask, O2 Flow Rate 2.0 . Vital Sign Comment: [] EKG Rhythm: Sinus Rhythm Rhythm change?: N MD Notified?: - MD Response: Latest Castro Fall Score: 50 Fall Risk: High Risk Safety Measures: Call light Within Reach, Bed Alarm Zone 1, Side Rails Side Rails x2, Bed position Low and Locked. Fall Precautions: Yellow Socks Yellow Gown Door Sign Patient Fall Education Report given to [MIN RN].
[2020-08-17] MEDS: Albuterol/Ipratropium 3ml neb HHN SCH ×2 (07:37→23:53)
--- NOTE | 2020-08-17 08:27 | Pulmonology Progress Note ---
Subjective ROS Limited/Unobtainable: Yes Interval Events: Intubated 08/05/20; extubated 08/14/20 Constitutional: Reports: fatigue, other - extubated, alert ; Denies: fever HEENT: Repors: no symptoms Respiratory: Reports: shortness of breath Cardiovascular: Reports: no symptoms Gastrointestinal/Abdominal: Denies: vomiting, diarrhea Genitourinary: Reports: no symptoms Neurologic: Reports: no symptoms Psychiatric: Reports: other - NA Skin: Denies: rash Musculoskeletal: Denies: pain Allergies: Coded Allergies: PENICILLINS (Verified Allergy, Unknown, 03/10/20) PHENYTOIN (Verified Allergy, Unknown, 03/10/20) Objective Last 24 Hour Vital Signs Date Time Temp Pulse Resp B/P (MAP) Pulse Ox O2 Delivery O2 Flow Rate FiO2 08/17/20 07:36 90 20 95 Nasal Cannula 3.0 32 84 18 96 08/17/20 07:26 96 Nasal Cannula 3.0 32 08/17/20 04:20 Nasal Cannula 2.0 08/17/20 04:00 90 08/17/20 04:00 97.7 75 22 119/79 (92) 95 08/17/20 00:00 96 08/17/20 00:00 Nasal Cannula 2.0 08/17/20 00:00 98.1 87 22 111/66 (81) 96 08/16/20 23:00 84 24 100 Nasal Cannula 4.0 36 76 22 98 08/16/20 20:00 97.3 82 22 125/86 (99) 99 08/16/20 20:00 82 08/16/20 20:00 Nasal Cannula 2.0 08/16/20 19:42 100 Nasal Cannula 2.0 28 08/16/20 16:20 69 28 100 Nasal Cannula 2.0 28 76 28 100 08/16/20 16:00 Nasal Cannula 2.0 08/16/20 16:00 80 08/16/20 16:00 97.0 87 22 131/74 (93) 98 08/16/20 12:00 Nasal Cannula 2.0 08/16/20 12:00 85 08/16/20 11:36 98.1 82 20 115/75 (88) 100 Intake and Output 08/16/20 08/17/20 19:00 07:00 Intake Total 1410.000 ml Output Total 2600 ml 2800 ml Balance -1190.000 ml -2800 ml Intake Oral 50 ml IV Total 1360.000 ml Output Urine Total 2600 ml 2800 ml # Bowel Movements 2 5 General Appearance: no acute distress HEENT: normocephalic Respiratory: chest wall non-tender, lungs clear Cardiovascular: normal peripheral pulses, normal rate Abdomen: normal bowel sounds Extremities: no cyanosis Laboratory Tests 08/17/20 04:46: White Blood Count 11.4H, Red Blood Count 3.65L, Hemoglobin 10.0L, Hematocrit 32.3L, Mean Corpuscular Volume 89, Mean Corpuscular Hemoglobin 27.4, Mean Corpuscular Hemoglobin Concent 31.0L, Red Cell Distribution Width 15.1H, Platelet Count 286, Mean Platelet Volume 5.6L, Neutrophils (%) (Auto) 84.9H, Lymphocytes (%) (Auto) 5.5L, Monocytes (%) (Auto) 8.3, Eosinophils (%) (Auto) 0.1, Basophils (%) (Auto) 1.1, Sodium Level 142, Potassium Level 3.0L, Chloride Level 101, Carbon Dioxide Level 36H, Anion Gap 6, Blood Urea Nitrogen 11, Creatinine 0.7, Estimat Glomerular Filtration Rate > 60, Glucose Level 96, Calcium Level 8.7 Current Medications Medications (Trade) Dose Ordered Sig/Armand Route PRN Reason Start Time Stop Time Status Last Admin Dose Admin Acetaminophen (Tylenol) 650 mg Q6H PRN NG Mild Pain (Pain Scale 1-3) 08/08/20 14:00 09/07/20 13:59 08/13/20 17:02 Acetaminophen (Tylenol) 650 mg Q6H PRN NG Temp >100.5 08/08/20 14:00 09/07/20 13:59 Albuterol/ Ipratropium (Albuterol/ Ipratropium) 3 ml Q4H PRN HHN Shortness of Breath 08/12/20 09:00 08/17/20 08:59 Albuterol/ Ipratropium (Albuterol/ Ipratropium) 3 ml Q8HRT HHN 08/12/20 09:00 08/17/20 08:59 08/17/20 07:37 Barium Sulfate (Varibar Honey) 250 ml NOW PRN RAD 08/14/20 18:45 08/17/20 18:36 Barium Sulfate (Varibar [place]) 240 ml NOW PRN MC RAD 08/14/20 18:45 08/17/20 18:36 Barium Sulfate (Varibar Pudding) 230 ml NOW PRN MC RAD 08/14/20 18:45 08/17/20 18:36 Barium Sulfate (Varibar Thin Liquid powder) 148 gm NOW PRN MC RAD 08/14/20 18:45 08/17/20 18:36 Cefepime HCl 2 gm/ Dextrose 110 ml @ 220 mls/hr EVERY 12 HOURS IV 08/05/20 21:00 08/18/20 23:59 08/16/20 21:12 Chlorhexidine Gluconate (Maddie-Hex 2%) 1 applic DAILY@2000 TOPIC 08/07/20 20:00 11/05/20 19:59 08/16/20 21:12 Dextrose/Sodium Chloride 1,000 ml @ 75 mls/hr [id number] IV 08/06/20 11:00 09/05/20 10:59 08/16/20 23:50 Docusate Sodium (Colace) 100 mg EVERY 12 HOURS NG 08/13/20 21:00 09/11/20 17:59 08/16/20 21:12 Enoxaparin Sodium (Lovenox) 60 mg EVERY 12 HOURS SUBQ 08/05/20 21:00 11/03/20 20:59 08/16/20 21:15 Famotidine (Pepcid I.v.) 20 mg Q12HR IVP 08/06/20 11:00 09/05/20 10:59 08/16/20 21:13 Gabapentin (Neurontin) 300 mg EVERY 8 HOURS NG 08/08/20 22:00 09/04/20 08:59 08/17/20 05:43 Methylprednisolone Sodium Succinate (Solu-MEDROL) 40 mg EVERY 6 HOURS IVP 08/05/20 12:00 11/03/20 11:59 08/17/20 05:43 Polyethylene Glycol (Miralax) 17 gm BEDTIME ORAL 08/12/20 21:00 09/11/20 20:59 08/16/20 21:12 Vancomycin HCl (Vanco pharmacy to dose) 1 ea DAILY PRN MISC Per rx protocol 08/04/20 09:15 09/03/20 09:14 Assessment/Plan Assessment/Plan 1. UTI -On empiric antibiotics -Follow-up UCx negative (08/03) 2. Pneumonia -On broad-spectrum antibiotics - CXR concerning for volume loss; reviewed chest CT - CT chest shows dense RUL and RML consolidation - High suspicion for RBI narrowing ; no obvious endobronchial narrowing noted on bronchoscopy 3. COPD exacerbation -Now extubated 4. Respiratory distress; improving - currently saturating well on 2L NC -> will wean as tolerated - continue steroid -> will taper 5. History of seizures -Risk of aspiration -Monitor for seizure activity 6. Elevated CRP -D-dimer wnl -His outpatient medications include Eliquis (hx of A fib?) - Continue Eliquis 7. Monitor carefully, may transfer to tele 8. Nutrition - NPO; ST eval pending Continue medications The care for this patient was discussed with my supervising physician Time spent for this case was approximately 31 minutes Edwin Beckham Aug 17, 2020 08:27
[2020-08-17] MEDS: Cefepime 2gm/D5W 110ml IV SCH ×4 (08:54→21:04)
[2020-08-17] MEDS: Docusate 100mg/10ml Liq NG SCH ×3 (08:58→21:01)
[2020-08-17] MEDS: Enoxaparin 60mg Inj SUBQ SCH ×2 (09:10→21:03)
--- NOTE | 2020-08-17 09:34 | NUR ---
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 CURRENT DIET:NPO, s/p extubation on 08/14, [employer] eval pending PO DIET RECOMMENDATIONS--->>> LOW NA/ texture per [employer] ADDITIONAL RECOMMENDATIONS: 1) Calibrated bedscale wts 2) F/up w/ [employer] eval and rec 3) Monitor BGs w/ Solumedrol, need for carb controlled diet and/or NISS 4) Monitor lytes, replete as needed (K 3.0) 5) Monitor respiratory status: s/p extubation (08/14), now on NC 6) With oral diet add FÉLIX BID for skin integrity
--- NOTE | 2020-08-17 11:28 | Nephrology Progress Note ---
Assessment/Plan Problem List: (1) Oliguria (2) Electrolyte imbalance (3) Pneumonia (4) Respiratory failure with hypoxia (5) Pneumonia due to COVID-19 virus (6) Seizure disorder (7) Anemia Assessment Sepsis, respiratory failure Pneumonia and possible aspiration. Questionable COVID-19 infection UTI Abnormal electrolytes Questionable CHF Anemia Plan August 17: Continues to tolerate extubation. Not in any distress and verbal. Labs reviewed. Low potassium addressed. Patient full code. Medication list reviewed. Continue per consultants. August 16: Post extubation. Tolerating well. Labs reviewed. Low potassium addressed. Continue per consultants. Stable from renal standpoint of view. Full code. August 15: Patient extubated on oxygen with cannula. Variable asking for coffee. Renal parameters stable. Continue per consultants. August 14: Status unchanged. Remains full code, intubated, on ventilator, FiO2 of 40%. Labs reviewed. Renal parameters stable. Hemoglobin lower. Suggest transfusion. August 13: Status quo. Remains full code, intubated, on FiO2 of 40%. Labs reviewed. Renal parameters stable. Continue per consultants. August 12: Intubated on ventilator. FiO2 40% unchanged. Full code. Labs reviewed. Renal parameters stable. Continue per consultants. August 11: Intubated on ventilator. O2 40%. Full code. Medication list reviewed. Labs reviewed. Stable from renal standpoint of view. Continue per c onsultants. August 10: Status quo. Intubated on ventilator. FiO2 remains 40%. Renal parameters stable. Continue per current management. Potassium and phosphorus supplement given August 09: Full code. Intubated on ventilator. FiO2 40%. Labs reviewed. Stable from renal standpoint of view. August 08: Labs reviewed. Renal parameters stable. Abnormal electrolytes addressed. Remains full code. FiO2 50%. Continue per consultants. Discussed with RN. August 07: Labs reviewed. K Phos IV given. Patient intubated. Full code. FiO2 60%. Medication list reviewed. Continue per consultants. Previously: Optimize pulmonary status Optimize cardiac status Monitor renal parameters, urine output, electrolytes Change IV to half-normal saline Anemia mansfield Insert NG tube and start feeding Per orders Subjective ROS Limited/Unobtainable: No Constitutional: Reports: malaise Objective Objective Last 24 Hour Vital Signs Date Time Temp Pulse Resp B/P (MAP) Pulse Ox O2 Delivery O2 Flow Rate FiO2 08/17/20 08:00 97.0 90 22 134/83 (100) 99 08/17/20 08:00 89 08/17/20 07:36 90 20 95 Nasal Cannula 3.0 32 84 18 96 08/17/20 07:26 96 Nasal Cannula 3.0 32 08/17/20 04:20 Nasal Cannula 2.0 08/17/20 04:00 90 08/17/20 04:00 97.7 75 22 119/79 (92) 95 08/17/20 00:00 96 08/17/20 00:00 Nasal Cannula 2.0 08/17/20 00:00 98.1 87 22 111/66 (81) 96 08/16/20 23:00 84 24 100 Nasal Cannula 4.0 36 76 22 98 08/16/20 20:00 97.3 82 22 125/86 (99) 99 08/16/20 20:00 82 08/16/20 20:00 Nasal Cannula 2.0 08/16/20 19:42 100 Nasal Cannula 2.0 28 08/16/20 16:20 69 28 100 Nasal Cannula 2.0 28 76 28 100 08/16/20 16:00 Nasal Cannula 2.0 08/16/20 16:00 80 08/16/20 16:00 97.0 87 22 131/74 (93) 98 08/16/20 12:00 Nasal Cannula 2.0 08/16/20 12:00 85 08/16/20 11:36 98.1 82 20 115/75 (88) 100 Intake and Output 08/16/20 08/17/20 19:00 07:00 Intake Total 1410.000 ml Output Total 2600 ml 2800 ml Balance -1190.000 ml -2800 ml Intake Oral 50 ml IV Total 1360.000 ml Output Urine Total 2600 ml 2800 ml # Bowel Movements 2 5 Current Medications Medications (Trade) Dose Ordered Sig/Armand Route PRN Reason Start Time Stop Time Status Last Admin Dose Admin Acetaminophen (Tylenol) 650 mg Q6H PRN NG Mild Pain (Pain Scale 1-3) 08/08/20 14:00 09/07/20 13:59 08/13/20 17:02 Acetaminophen (Tylenol) 650 mg Q6H PRN NG Temp >100.5 08/08/20 14:00 09/07/20 13:59 Barium Sulfate (Varibar Honey) 250 ml NOW PRN MC RAD 08/14/20 18:45 08/17/20 18:36 Barium Sulfate (Varibar [place]) 240 ml NOW PRN MC RAD 08/14/20 18:45 08/17/20 18:36 Barium Sulfate (Varibar Pudding) 230 ml NOW PRN MC RAD 08/14/20 18:45 08/17/20 18:36 Barium Sulfate (Varibar Thin Liquid powder) 148 gm NOW PRN MC RAD 08/14/20 18:45 08/17/20 18:36 Cefepime HCl 2 gm/ Dextrose 110 ml @ 220 mls/hr EVERY 12 HOURS IV 08/05/20 21:00 08/18/20 23:59 08/17/20 08:54 Chlorhexidine Gluconate (Maddie-Hex 2%) 1 applic DAILY@2000 TOPIC 08/07/20 20:00 11/05/20 19:59 08/16/20 21:12 Dextrose/Sodium Chloride 1,000 ml @ 75 mls/hr [id number] IV 08/06/20 11:00 09/05/20 10:59 08/16/20 23:50 Docusate Sodium (Colace) 100 mg EVERY 12 HOURS NG 08/13/20 21:00 09/11/20 17:59 08/16/20 21:12 Enoxaparin Sodium (Lovenox) 60 mg EVERY 12 HOURS SUBQ 08/05/20 21:00 11/03/20 20:59 08/17/20 09:10 Famotidine (Pepcid I.v.) 20 mg Q12HR IVP 08/06/20 11:00 09/05/20 10:59 08/17/20 08:54 Gabapentin (Neurontin) 300 mg EVERY 8 HOURS NG 08/08/20 22:00 09/04/20 08:59 08/17/20 05:43 Methylprednisolone Sodium Succinate (Solu-MEDROL) 40 mg EVERY 12 HOURS IVP 08/17/20 21:00 11/15/20 20:59 Polyethylene Glycol (Miralax) 17 gm BEDTIME ORAL 08/12/20 21:00 09/11/20 20:59 08/16/20 21:12 Potassium Chloride (K-Dur) 40 meq TWICE A DAY ORAL 08/17/20 10:00 11/15/20 09:59 08/17/20 10:44 Laboratory Tests 08/17/20 04:46: White Blood Count 11.4H, Red Blood Count 3.65L, Hemoglobin 10.0L, Hematocrit 32.3L, Mean Corpuscular Volume 89, Mean Corpuscular Hemoglobin 27.4, Mean Corpuscular Hemoglobin Concent 31.0L, Red Cell Distribution Width 15.1H, Platelet Count 286, Mean Platelet Volume 5.6L, Neutrophils (%) (Auto) 84.9H, Lymphocytes (%) (Auto) 5.5L, Monocytes (%) (Auto) 8.3, Eosinophils (%) (Auto) 0.1, Basophils (%) (Auto) 1.1, Sodium Level 142, Potassium Level 3.0L, Chloride Level 101, Carbon Dioxide Level 36H, Anion Gap 6, Blood Urea Nitrogen 11, Creatinine 0.7, Estimat Glomerular Filtration Rate > 60, Glucose Level 96, Calcium Level 8.7 Height (Feet): 6 Height (Inches): 1.00 Weight (Pounds): 190 General Appearance: no apparent distress Cardiovascular: normal rate Respiratory/Chest: decreased breath sounds Abdomen: distended Aashish Burgess MD Aug 17, 2020 11:28
--- NOTE | 2020-08-17 12:12 | Surgery Progress Note ---
Surgery Progress Note Subjective Symptoms: improved, tolerating diet, passing flatus Objective Last 24 Hour Vital Signs Date Time Temp Pulse Resp B/P (MAP) Pulse Ox O2 Delivery O2 Flow Rate FiO2 08/17/20 08:00 97.0 90 22 134/83 (100) 99 08/17/20 08:00 89 08/17/20 07:36 90 20 95 Nasal Cannula 3.0 32 84 18 96 08/17/20 07:26 96 Nasal Cannula 3.0 32 08/17/20 04:20 Nasal Cannula 2.0 08/17/20 04:00 90 08/17/20 04:00 97.7 75 22 119/79 (92) 95 08/17/20 00:00 96 08/17/20 00:00 Nasal Cannula 2.0 08/17/20 00:00 98.1 87 22 111/66 (81) 96 08/16/20 23:00 84 24 100 Nasal Cannula 4.0 36 76 22 98 08/16/20 20:00 97.3 82 22 125/86 (99) 99 08/16/20 20:00 82 08/16/20 20:00 Nasal Cannula 2.0 08/16/20 19:42 100 Nasal Cannula 2.0 28 08/16/20 16:20 69 28 100 Nasal Cannula 2.0 28 76 28 100 08/16/20 16:00 Nasal Cannula 2.0 08/16/20 16:00 80 08/16/20 16:00 97.0 87 22 131/74 (93) 98 I&O Intake and Output 08/16/20 08/17/20 19:00 07:00 Intake Total 1410.000 ml Output Total 2600 ml 2800 ml Balance -1190.000 ml -2800 ml Intake Oral 50 ml IV Total 1360.000 ml Output Urine Total 2600 ml 2800 ml # Bowel Movements 2 5 Dressing: saturated Cardiovascular: RSR Respiratory: clear, decreased breath sounds Abdomen: soft, non-tender, present bowel sounds, non-distended Extremities: no edema, no tenderness, no cyanosis Laboratory Tests Test 08/17/20 04:46 White Blood Count 11.4 K/UL (4.8-10.8) H Red Blood Count 3.65 M/UL (4.70-6.10) L Hemoglobin 10.0 G/DL (14.2-18.0) L Hematocrit 32.3 % (42.0-52.0) L Mean Corpuscular Volume 89 FL (80-99) Mean Corpuscular Hemoglobin 27.4 PG (27.0-31.0) Mean Corpuscular Hemoglobin Concent 31.0 G/DL (32.0-36.0) L Red Cell Distribution Width 15.1 % (11.6-14.8) H Platelet Count 286 K/UL (150-450) Mean Platelet Volume 5.6 FL (6.5-10.1) L Neutrophils (%) (Auto) 84.9 % (45.0-75.0) H Lymphocytes (%) (Auto) 5.5 % (20.0-45.0) L Monocytes (%) (Auto) 8.3 % (1.0-10.0) Eosinophils (%) (Auto) 0.1 % (0.0-3.0) Basophils (%) (Auto) 1.1 % (0.0-2.0) Sodium Level 142 MMOL/L (136-145) Potassium Level 3.0 MMOL/L (3.5-5.1) L Chloride Level 101 MMOL/L (98-107) Carbon Dioxide Level 36 MMOL/L (21-32) H Anion Gap 6 mmol/L (5-15) Blood Urea Nitrogen 11 mg/dL (7-18) Creatinine 0.7 MG/DL (0.55-1.30) Estimat Glomerular Filtration Rate > 60 mL/min (>60) Glucose Level 96 MG/DL (74-106) Calcium Level 8.7 MG/DL (8.5-10.1) Plan Problems: (1) Abdominal distension Assessment & Plan: 79M abdominal distention, respiratory decline, altered mental status. on exam noted abd soft, mild distended, non tender. no n/v/f/c. unlikely aspiration. non tender one exam. pending urine and covid test. no acute surgical intervention. hold on ct. kub ordered. will follow with exam and recs. keep npo for now. iv fluids. respiratory pulm support. will follow with recs thank you decline since admission now intubated ng tube to suction no acute surgical intervention cont abx kub noted wean vent enema when stable The rectum is considerably distended with stool. Considerable stool is also seen in the descending colon. The colon is diffusely gas filled, upper limits of normal in caliber. No significant small bowel gas demonstrated. No masses or u nusual calcifications. The included lung bases demonstrate bilateral right greater than left pleural effusions. There is a Butler catheter Impression: Distended stool-filled rectum, fecal impaction possible Gas-filled upper limits of normal caliber colon, nonspecific Bilateral right greater than left pleural effusions (2) UTI (urinary tract infection) (3) Pneumonia (4) Multiple pulmonary nodules (5) Respiratory failure with hypoxia Assessment & Plan: cont weaning (6) Pneumonia due to COVID-19 virus (7) History of CVA (cerebrovascular accident) (8) COPD (chronic obstructive pulmonary disease) (9) HTN (hypertension) (10) Hx of prostatic malignancy (11) Major depression (12) Seizure disorder Destin Brown Aug 17, 2020 12:12
--- NOTE | 2020-08-17 12:14 | Cardiac Electrophysiology PN ---
Assessment/Plan Assessment/Plan 1. Respiratory failure. On IV antibiotic. Extubated 08/14/20 Echo showed EF 50%. On 2 liter NC 2. Questionable congestive heart failure. EF normal and BNP is only 39. 3. S/P Septic shock, now off Levo 4. History of COVID pneumonia, status post vaccination for COVID. Currently on IV antibiotic and prednisone. Now off isolation 5. Questionable history of atrial fibrillation versus DVT on Eliquis 2.5 mg b.i.d. Currently in SR 6. Full Code Subjective Subjective Out of ICU extubated 08/14/20 In SR. Off restraints off fentanyl drip Off pressors on 2 liter NC Objective Last 24 Hour Vital Signs Date Time Temp Pulse Resp B/P (MAP) Pulse Ox O2 Delivery O2 Flow Rate FiO2 08/17/20 08:00 97.0 90 22 134/83 (100) 99 08/17/20 08:00 89 08/17/20 07:36 90 20 95 Nasal Cannula 3.0 32 84 18 96 08/17/20 07:26 96 Nasal Cannula 3.0 32 08/17/20 04:20 Nasal Cannula 2.0 08/17/20 04:00 90 08/17/20 04:00 97.7 75 22 119/79 (92) 95 08/17/20 00:00 96 08/17/20 00:00 Nasal Cannula 2.0 08/17/20 00:00 98.1 87 22 111/66 (81) 96 08/16/20 23:00 84 24 100 Nasal Cannula 4.0 36 76 22 98 08/16/20 20:00 97.3 82 22 125/86 (99) 99 08/16/20 20:00 82 08/16/20 20:00 Nasal Cannula 2.0 08/16/20 19:42 100 Nasal Cannula 2.0 28 08/16/20 16:20 69 28 100 Nasal Cannula 2.0 28 76 28 100 08/16/20 16:00 Nasal Cannula 2.0 08/16/20 16:00 80 08/16/20 16:00 97.0 87 22 131/74 (93) 98 Intake and Output 08/16/20 08/17/20 19:00 07:00 Intake Total 1410.000 ml Output Total 2600 ml 2800 ml Balance -1190.000 ml -2800 ml Intake Oral 50 ml IV Total 1360.000 ml Output Urine Total 2600 ml 2800 ml # Bowel Movements 2 5 Laboratory Tests Test 08/17/20 04:46 White Blood Count 11.4 K/UL (4.8-10.8) H Red Blood Count 3.65 M/UL (4.70-6.10) L Hemoglobin 10.0 G/DL (14.2-18.0) L Hematocrit 32.3 % (42.0-52.0) L Mean Corpuscular Volume 89 FL (80-99) Mean Corpuscular Hemoglobin 27.4 PG (27.0-31.0) Mean Corpuscular Hemoglobin Concent 31.0 G/DL (32.0-36.0) L Red Cell Distribution Width 15.1 % (11.6-14.8) H Platelet Count 286 K/UL (150-450) Mean Platelet Volume 5.6 FL (6.5-10.1) L Neutrophils (%) (Auto) 84.9 % (45.0-75.0) H Lymphocytes (%) (Auto) 5.5 % (20.0-45.0) L Monocytes (%) (Auto) 8.3 % (1.0-10.0) Eosinophils (%) (Auto) 0.1 % (0.0-3.0) Basophils (%) (Auto) 1.1 % (0.0-2.0) Sodium Level 142 MMOL/L (136-145) Potassium Level 3.0 MMOL/L (3.5-5.1) L Chloride Level 101 MMOL/L (98-107) Carbon Dioxide Level 36 MMOL/L (21-32) H Anion Gap 6 mmol/L (5-15) Blood Urea Nitrogen 11 mg/dL (7-18) Creatinine 0.7 MG/DL (0.55-1.30) Estimat Glomerular Filtration Rate > 60 mL/min (>60) Glucose Level 96 MG/DL (74-106) Calcium Level 8.7 MG/DL (8.5-10.1) Microbiology Date/Time Source Procedure Growth Status 08/16/20 17:33 Femoral Right Catheter Tip Culture - Preliminary NO GROWTH Resulted Objective HEAD AND NECK: No JVD on 2 liter NC LUNGS: Coarse rhonchi. CARDIOVASCULAR: Regular S1 and S2 with no gallop. ABDOMEN: Soft. EXTREMITIES: 1 plus pitting edema. Devyn Magdaleno MD Aug 17, 2020 12:14
[2020-08-17] MEDS ORDERED: Tubing IV Secondary IV ONE ×2 (13:40→13:54)
[2020-08-17] MEDS ORDERED: D5 1/2NS 1000ml IV ONE ×2 (13:40→13:54)
--- NOTE | 2020-08-17 13:50 | NUR ---
NURSE NOTES:WOUND CARE NOTES: Pt presented with Multiple Pressure Injuries. An area than that is darker than is normal skin tone noted to L Buttocks. Affected area is fluctuant when palpated (L)2.5cm x (W)2cm. No evidence of erythema, induration surrounding areas of buttocks. R and L Heels are boggy with non-blanchable erythema. DTPI L Hallux(L)5.2cm x (W)4.9cm. Wound is an intact blood filled blister with surrounding non-blanchable erythema.Pt easily agitated when wound and surrounding skin is minimally palpated. DTPI Lateral L 1st Metatarsal(L)0.7cm x (W)2.5cm. Wound is a Blood filled blister. Edges are callused and has blanched appearance, Non-blanchable erythema with fluctuance periwound and at head of metatarsal. Tx.Plan: Apply Betadine to L Hallux and L 1st Metatarsal. Cover affected areas with Optifoam drsgs. Change every 3 days and prn. Apply Moisture Barrier Paste to Sacrum. Cover with Optifoam drsg. Change every 3 days and prn. Monitor L Buttocks for skin changes. Apply Cavilon Skin Barrier to R and L Heela and Malleoli. Cover each site with Optifoam drsgs. Change every 7 days and prn. Reposition at least every 2hours or as tolerated. Place Pillow between legs. Off-load heels with Pillow. APM/CHIVO Mattress overlay.
[2020-08-17] MEDS ORDERED: NS 275ml ONE (13:54)
[2020-08-17] MEDS: D5 1/2NS 1,000 ML IV SCH (14:36)
--- NOTE | 2020-08-17 16:58 | NUR ---
Speech Pathology Note (Bedside Dysphagia Evaluation) Previous Hospitalization: 03/10/2020~03/19/2020 for COVID 19 Residency: [facility] SNF: 03/19/2020~ Current Hospital Admission: 08/03/2020 Hospital Days: 14days RFA: Sepsis (Pneumonia) Intubation days: 9 days (08/05/2020~08/14/2020) Septic shock and respiratory failure with right lung whiteouy Imaging Study: CT chest 08/06/2020 comparison 03/18/2020 Bronchoscopy: (08/08/2020) for right bronchus intermidious narrowing -No evidence of endobronchial pathology identified Pressors: 08/05/2020~08/12/2020 Antibiotic Regimen: Vanco, Cefepime and Flagyl Brief Note: Mr. Mahmood is am 79 year old male presents with complexed medical history include CHF, HTN, PVD, CVA, COPD seizure, GERD depression and prostate CA. He was BIBA on 08/03/2020 for tachypneic and tachycardia insetting of COPD. On arrival he was found to have fever 102.9. consists with R filed infiltrate via CXR and UTI without leukocytosis. On 08/05, he became hypotensive, leukocytosis and subsequently intubated and transferred to ICU for BP and vent management. The CT chest was remarkable for right filed consolidation concerning for endobronchial mass vs. mucus pug. He underwent the bronchoscopy possible BAL of . The was no evidence pathology was identified at that time. He was hemodynamically managed to be off pressors and wean to be extubated on 08/14/2020 and down graded to step down unit on . Current labs: CBC: 11.4/10/32.3/286 Electrolytes: 142/3.0/101/36/11/0.7/96 LFT, Cardiac enzyme are grossly unremarkable and stable. Imaginging CT chest reviewed and comparison noted. CXR reviewed: Findings at his bedside today: Mr. Robert is alert and oriented to self, "Hospital" and year. He was able to ask me " can you give me a breathing treatment." His speech is dysarthric and shortness of utterance. His voice is intact. His right side lung sound is partially diminished and crackle in upper lobe. The wheezing was noted on left. Paradoxical breathing pattern is seen with tachypneic in high 20's to low 30's. SPO2 on 2 liter is 87~89. I cranked up to 5 liter and it improved to 93 to 94. I titrate down again to 3 liter to keep it 90. The oral mucosa is very dried. The soft palate elevated bilaterally during phonation. PO trials were given with apple sauce and thick liquid. He tolerated well without overt s.s of aspiration. Interpretation: 1. Dyspnea with consists with right side lung field involvement with possible aspiration, mucus plug 2. Oropharyngeal dysphagia with aspiration risk due to oropharyngeal dysmotility with dysarthria 3. Septic shock resolved 4. paradoxical breathing pattern Plan: 1. Pureed and Honey thick liquid for now -Crush medication with apple sauce -Close pulmonary observation 2. Speech follow up for diet advancement Beth Knight
--- NOTE | 2020-08-17 17:33 | NUR ---
RESPIRATORY NOTE: ABG drawn at this time. Results reported to Min RN.
--- NOTE | 2020-08-17 17:52 | NUR ---
NURSE NOTES: At 5:40pm Pt altered and unable to follow the simple direction. BP 130/71, P 88, RR 40, T 98.7 F, O2 Sat 88-91% on 2LPM via N/C. Breathing hard with pursed lip. ABG stat ordered and RT at the bedside. At 5:54pm Dr. Schneider paged and awaiting for reply.
--- NOTE | 2020-08-17 18:10 | NUR ---
NURSE NOTES: Dr. Schneider Paged again. No phone call received. Made nurse forming department supervisor aware.
--- NOTE | 2020-08-17 18:20 | Infectious Diseases Prog Note ---
Assessment/Plan Assessment/Plan ASSESSMENT AND PLAN: 1. 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 contaminant vs bacteremia, uti, sepsis, shock, respiratory failure, vent sirs, leukocytosis, fevers mrsa colonization patient with picc line, femoral line removed covid-19 testing negative - s/p vancomycin, cefepime and flagyl antibiotic course - f/u on labs and chest x-ray - clinically better, extubated - d/w RN - off pressors, monitor hypoxia - leukocytosis likely secondary to steroids - clinically improved 2. covid-19 testing negative - isolation removed 3. Patient is on steroids for copd 4. aspiration precautions, pulmonary f/u 5. cou care 6. Blood pressure support. 7. Hypertension. 8. CHF. 9. COPD. 10. Prostate cancer. 11. Anemia. 12. CVA. 13. Aspiration risk. 14. Peripheral vascular disease. 15. GERD. 16. Seizures. 17. Depression. 18. History of COVID infection in February 2020. 19. Continue treatment per primary consultants. 20. Orders were noted and entered. 21. Skin care protocol. 22. Allergies to penicillin and phenytoin. 23. Social history is negative. 24. Family history is noncontributory. 25. MAR is noted. 26. Case was discussed with RN. Subjective Constitutional: Denies: fever HEENT: Reports: congestion - mild Respiratory: Reports: shortness of breath - mild Cardiovascular: Denies: chest pain Gastrointestinal/Abdominal: Denies: nausea, vomiting, diarrhea Genitourinary: Reports: other - + bee Neurologic: Denies: headache Psychiatric: Reports: other - NA Skin: Denies: rash Hematologic: Denies: bleeding Musculoskeletal: Denies: pain Allergies: Coded Allergies: PENICILLINS (Verified Allergy, Unknown, 03/10/20) PHENYTOIN (Verified Allergy, Unknown, 03/10/20) Objective Last 24 Hour Vital Signs Date Time Temp Pulse Resp B/P (MAP) Pulse Ox O2 Delivery O2 Flow Rate FiO2 08/17/20 17:36 98.4 88 22 130/71 (90) 91 08/17/20 16:00 Nasal Cannula 2.0 08/17/20 16:00 98.2 90 22 139/80 (99) 94 08/17/20 12:00 98.2 96 22 131/75 (93) 100 08/17/20 12:00 101 08/17/20 12:00 Nasal Cannula 2.0 08/17/20 08:00 97.0 90 22 134/83 (100) 99 08/17/20 08:00 Nasal Cannula 2.0 08/17/20 08:00 89 08/17/20 07:36 90 20 95 Nasal Cannula 3.0 32 84 18 96 08/17/20 07:26 96 Nasal Cannula 3.0 32 08/17/20 04:20 Nasal Cannula 2.0 08/17/20 04:00 90 08/17/20 04:00 97.7 75 22 119/79 (92) 95 08/17/20 00:00 96 08/17/20 00:00 Nasal Cannula 2.0 08/17/20 00:00 98.1 87 22 111/66 (81) 96 08/16/20 23:00 84 24 100 Nasal Cannula 4.0 36 76 22 98 08/16/20 20:00 97.3 82 22 125/86 (99) 99 08/16/20 20:00 82 08/16/20 20:00 Nasal Cannula 2.0 08/16/20 19:42 100 Nasal Cannula 2.0 28 Height (Feet): 6 Height (Inches): 1.00 Weight (Pounds): 190 General Appearance: no acute distress HEENT: normocephalic, atraumatic, anicteric, mucous membranes moist, no JVD Respiratory/Chest: no respiratory distress, no accessory muscle use, crackles/rales, rhonchi - bilaterally Cardiovascular: normal rate, regular rhythm, no gallop/murmur Abdomen: normal bowel sounds, soft, non tender, no organomegaly, non distended Genitourinary: other - + bee Extremities: no cyanosis Skin: no rash Neurologic/Psychiatric: edi consultant II-XII grossly normal, responsive, other - generalized weakness Lymphatic: no neck adenopathy Musculoskeletal: no effusion CT Chest - Impression: Dense consolidation, likely representing pneumonia, involving the vast majority the right lower lobe, as well as a significant portion of the right upper lobe. Considerable right upper lobe atelectatic changes. COPD changes A few areas of atelectasis and possibly some consolidation is seen in the left lung Small right pleural fluid Evidence of old granulomatous disease 3 mm mm noncalcified nodule in the right middle lobe, not definitely evident previously. Recommend short interval 6 to 12 month follow-up CT scan Dilated right main pulmonary artery, indicative of pulmonary arterial hypertension Satisfactory endotracheal intubation Cholelithiasis Chest x-ray - 08/06/20 - Procedure: XRAY Chest 1v Indication: Abnormal chest sounds Technique: One view of the chest Comparison: 08/05/2020 Findings: Stable satisfactory the position of endotracheal tube. There is d eveloping atelectasis in the right upper lung. There is persistent pleural fluid on the right and increasing parenchymal consolidation. Left lung pleural space remain clear. The heart size is normal Impression: Increasing right upper lobe atelectasis and right lung infiltrate. Unchanged right pleural effusion Chest x-ray - 08/09/20 Procedure: XRAY Chest 1v EXAM: XR Chest, 1 View CLINICAL HISTORY: INFECT TECHNIQUE: Frontal view of the chest. COMPARISON: Chest radiograph August 06, 2020. FINDINGS/IMPRESSION: Stable endotracheal tube. Opacity within the right lower lung field consistent with infiltrate, which is mild improving. Mild-moderate pleural effusion which is mildly worsening. No pneumothorax. The heart size is within normal limit. Calcified, tortuous aorta. Chest x-ray - 08/11/20 - IMPRESSION: No change in bibasilar infiltrate and small bilateral effusions. Endotracheal tube and NG tube remain in place. Chest x-ray - 08/13/20- Procedure: XRAY Chest 1v Procedure: XRAY Chest 1v Reason for study: Shortness of breath. Comparison films: 08/11/2020. FINDINGS: Endotracheal tube, NG tube and right PICC line imaging in place. Vascularity is normal. Basilar infiltrates and small effusions are unchanged. Cardiac and mediastinal silhouette are within normal limits. The bony thorax appear unremarkable. IMPRESSION: NO SIGNIFICANT CHANGE COMPARED TO PREVIOUS EXAM. Chest x-ray - 08/14/20 - Procedure: XRAY Chest 1v Procedure: XRAY Chest 1v Reason for study: Reason For Exam: SOB Comparison films: 08/13/2020. FINDINGS: Radiograph is underexposed. Endotracheal tube and NG tube remain in place . Bilateral infiltrates and small effusions unchanged. Cardiac and mediastinal silhouette are within normal aponte its. The bony thorax appear unremarkable. IMPRESSION: NO SIGNIFICANT CHANGE COMPARED TO PREVIOUS EXAM. Microbiology Date/Time Source Procedure Growth Status 08/16/20 17:33 Femoral Right Catheter Tip Culture - Preliminary NO GROWTH Resulted 08/07/20 04:00 Sputum Gram Stain - Final Complete 08/07/20 04:00 Sputum Sputum Culture - Final NO GROWTH AFTER 48 HOURS Complete 08/06/20 03:20 Blood Blood Culture - Final NO GROWTH AFTER 5 DAYS Complete 08/03/20 19:41 Urine,Clean Catch Urine Culture - Final Mixed Gram Positive Organism Complete Microbiology Date/Time Source Procedure Growth Status 08/16/20 17:33 Femoral Right Catheter Tip Culture - Preliminary NO GROWTH Resulted Laboratory Tests Test 08/17/20 04:46 08/17/20 17:33 White Blood Count 11.4 K/UL (4.8-10.8) H Red Blood Count 3.65 M/UL (4.70-6.10) L Hemoglobin 10.0 G/DL (14.2-18.0) L Hematocrit 32.3 % (42.0-52.0) L Mean Corpuscular Volume 89 FL (80-99) Mean Corpuscular Hemoglobin 27.4 PG (27.0-31.0) Mean Corpuscular Hemoglobin Concent 31.0 G/DL (32.0-36.0) L Red Cell Distribution Width 15.1 % (11.6-14.8) H Platelet Count 286 K/UL (150-450) Mean Platelet Volume 5.6 FL (6.5-10.1) L Neutrophils (%) (Auto) 84.9 % (45.0-75.0) H Lymphocytes (%) (Auto) 5.5 % (20.0-45.0) L Monocytes (%) (Auto) 8.3 % (1.0-10.0) Eosinophils (%) (Auto) 0.1 % (0.0-3.0) Basophils (%) (Auto) 1.1 % (0.0-2.0) Sodium Level 142 MMOL/L (136-145) Potassium Level 3.0 MMOL/L (3.5-5.1) L Chloride Level 101 MMOL/L (98-107) Carbon Dioxide Level 36 MMOL/L (21-32) H Anion Gap 6 mmol/L (5-15) Blood Urea Nitrogen 11 mg/dL (7-18) Creatinine 0.7 MG/DL (0.55-1.30) Estimat Glomerular Filtration Rate > 60 mL/min (>60) Glucose Level 96 MG/DL (74-106) Calcium Level 8.7 MG/DL (8.5-10.1) Arterial Blood pH 7.444 (7.350-7.450) Arterial Blood Partial Pressure CO2 60.6 mmHg (35.0-45.0) *H Arterial Blood Partial Pressure O2 55.4 mmHg (75.0-100.0) L Arterial Blood HCO3 40.6 mmol/L (22.0-26.0) *H Arterial Blood Oxygen Saturation 87.4 % (95-100) *L Arterial Blood Base Excess 14.2 (-2-2) *H Chadwick Test Positive Current Medications Medications (Trade) Dose Ordered Sig/Armand Route PRN Reason Start Time Stop Time Status Last Admin Dose Admin Acetaminophen (Tylenol) 650 mg Q6H PRN NG Mild Pain (Pain Scale 1-3) 08/08/20 14:00 09/07/20 13:59 08/13/20 17:02 Acetaminophen (Tylenol) 650 mg Q6H PRN NG Temp >100.5 08/08/20 14:00 09/07/20 13:59 Barium Sulfate (Varibar Honey) 250 ml NOW PRN MC RAD 08/14/20 18:45 08/17/20 18:36 Barium Sulfate (Varibar [place]) 240 ml NOW PRN MC RAD 08/14/20 18:45 08/17/20 18:36 Barium Sulfate (Varibar Pudding) 230 ml NOW PRN MC RAD 08/14/20 18:45 08/17/20 18:36 Barium Sulfate (Varibar Thin Liquid powder) 148 gm NOW PRN RAD 08/14/20 18:45 08/17/20 18:36 Cefepime HCl 2 gm/ Dextrose 110 ml @ 220 mls/hr EVERY 12 HOURS IV 08/05/20 21:00 08/18/20 23:59 08/17/20 08:54 Chlorhexidine Gluconate (Maddie-Hex 2%) 1 applic DAILY@2000 TOPIC 08/07/20 20:00 11/05/20 19:59 08/16/20 21:12 Dextrose/Sodium Chloride 1,000 ml @ 75 mls/hr [id number] IV 08/06/20 11:00 09/05/20 10:59 08/17/20 14:36 Docusate Sodium (Colace) 100 mg EVERY 12 HOURS NG 08/13/20 21:00 09/11/20 17:59 08/16/20 21:12 Enoxaparin Sodium (Lovenox) 60 mg EVERY 12 HOURS SUBQ 08/05/20 21:00 11/03/20 20:59 08/17/20 09:10 Famotidine (Pepcid I.v.) 20 mg Q12HR IVP 08/06/20 11:00 09/05/20 10:59 08/17/20 08:54 Gabapentin (Neurontin) 300 mg EVERY 8 HOURS NG 08/08/20 22:00 09/04/20 08:59 08/17/20 14:36 Methylprednisolone Sodium Succinate (Solu-MEDROL) 40 mg EVERY 12 HOURS IVP 08/17/20 21:00 11/15/20 20:59 Polyethylene Glycol (Miralax) 17 gm BEDTIME ORAL 08/12/20 21:00 09/11/20 20:59 08/16/20 21:12 Potassium Chloride (K-Dur) 40 meq TWICE A DAY ORAL 08/17/20 10:00 11/15/20 09:59 08/17/20 10:44 Kemar Nichole MD Aug 17, 2020 18:19
--- NOTE | 2020-08-17 18:25 | NUR ---
NURSE NOTES: Dr. Saul paged for AMS and desat with 88-90% with 2LPM via N/C. Bipap setting with 14/8 ordered. ABG in 1hr after Bipap applied and DuoNeb q8 ATC and Q4 PRN for SOB ordered. CXR STAT ordered and made radiology dept aware. Obtained all telephone orders and carried out.
--- NOTE | 2020-08-17 18:25 | NUR ---
NURSE NOTES: Dr Young paged for K-Dur 40mEq po BID. Pt in unable to swallow the meds by mouth due to altered mental status. Awaiting for reply
[2020-08-17] MEDS ORDERED: Albuterol/Ipratropium 3ml neb HHN PRN (18:30)
--- NOTE | 2020-08-17 19:19 | Internal Med Progress Note ---
Subjective Date of Service: Aug 17, 2020 Physician Name Pablo Hickman Attending Physician Torres Saul MD Current Medications Medications (Trade) Dose Ordered Sig/Armand Route PRN Reason Start Time Stop Time Status Last Admin Dose Admin Acetaminophen (Tylenol) 650 mg Q6H PRN NG Mild Pain (Pain Scale 1-3) 08/08/20 14:00 09/07/20 13:59 08/13/20 17:02 Acetaminophen (Tylenol) 650 mg Q6H PRN NG Temp >100.5 08/08/20 14:00 09/07/20 13:59 Albuterol/ Ipratropium (Albuterol/ Ipratropium) 3 ml Q4H PRN HHN Shortness of Breath 08/17/20 18:30 08/22/20 18:29 08/17/20 18:46 Albuterol/ Ipratropium (Albuterol/ Ipratropium) 3 ml Q8HRT HHN 08/17/20 23:00 08/22/20 22:59 Cefepime HCl 2 gm/ Dextrose 110 ml @ 220 mls/hr EVERY 12 HOURS IV 08/05/20 21:00 08/18/20 23:59 08/17/20 08:54 Chlorhexidine Gluconate (Maddie-Hex 2%) 1 applic DAILY@2000 TOPIC 08/07/20 20:00 11/05/20 19:59 08/16/20 21:12 Dextrose/Sodium Chloride 1,000 ml @ 75 mls/hr [id number] IV 08/06/20 11:00 09/05/20 10:59 08/17/20 14:36 Docusate Sodium (Colace) 100 mg EVERY 12 HOURS NG 08/13/20 21:00 09/11/20 17:59 08/16/20 21:12 Enoxaparin Sodium (Lovenox) 60 mg EVERY 12 HOURS SUBQ 08/05/20 21:00 11/03/20 20:59 08/17/20 09:10 Famotidine (Pepcid I.v.) 20 mg Q12HR IVP 08/06/20 11:00 09/05/20 10:59 08/17/20 08:54 Gabapentin (Neurontin) 300 mg EVERY 8 HOURS NG 08/08/20 22:00 09/04/20 08:59 08/17/20 14:36 Methylprednisolone Sodium Succinate (Solu-MEDROL) 40 mg EVERY 12 HOURS IVP 08/17/20 21:00 11/15/20 20:59 Polyethylene Glycol (Miralax) 17 gm BEDTIME ORAL 08/12/20 21:00 09/11/20 20:59 08/16/20 21:12 Potassium Chloride (K-Dur) 40 meq TWICE A DAY ORAL 08/17/20 10:00 11/15/20 09:59 08/17/20 10:44 Allergies: Coded Allergies: PENICILLINS (Verified Allergy, Unknown, 03/10/20) PHENYTOIN (Verified Allergy, Unknown, 03/10/20) ROS Limited/Unobtainable: Yes Subjective 79 YO M admitted with respiratory distress. Now pneumonia. Cover for Int Med- Dr Saul. Step down unit. Extubated 08/14/20 Objective Last Vital Signs Date Time Temp Pulse Resp B/P (MAP) Pulse Ox O2 Delivery O2 Flow Rate FiO2 08/17/20 18:47 84 23 97 Bi-Pap 40 85 24 92 08/17/20 17:36 98.4 130/71 (90) 08/17/20 16:00 2.0 Laboratory Tests Test 08/17/20 04:46 08/17/20 17:33 White Blood Count 11.4 K/UL (4.8-10.8) H Red Blood Count 3.65 M/UL (4.70-6.10) L Hemoglobin 10.0 G/DL (14.2-18.0) L Hematocrit 32.3 % (42.0-52.0) L Mean Corpuscular Volume 89 FL (80-99) Mean Corpuscular Hemoglobin 27.4 PG (27.0-31.0) Mean Corpuscular Hemoglobin Concent 31.0 G/DL (32.0-36.0) L Red Cell Distribution Width 15.1 % (11.6-14.8) H Platelet Count 286 K/UL (150-450) Mean Platelet Volume 5.6 FL (6.5-10.1) L Neutrophils (%) (Auto) 84.9 % (45.0-75.0) H Lymphocytes (%) (Auto) 5.5 % (20.0-45.0) L Monocytes (%) (Auto) 8.3 % (1.0-10.0) Eosinophils (%) (Auto) 0.1 % (0.0-3.0) Basophils (%) (Auto) 1.1 % (0.0-2.0) Sodium Level 142 MMOL/L (136-145) Potassium Level 3.0 MMOL/L (3.5-5.1) L Chloride Level 101 MMOL/L (98-107) Carbon Dioxide Level 36 MMOL/L (21-32) H Anion Gap 6 mmol/L (5-15) Blood Urea Nitrogen 11 mg/dL (7-18) Creatinine 0.7 MG/DL (0.55-1.30) Estimat Glomerular Filtration Rate > 60 mL/min (>60) Glucose Level 96 MG/DL (74-106) Calcium Level 8.7 MG/DL (8.5-10.1) Arterial Blood pH 7.444 (7.350-7.450) Arterial Blood Partial Pressure CO2 60.6 mmHg (35.0-45.0) *H Arterial Blood Partial Pressure O2 55.4 mmHg (75.0-100.0) L Arterial Blood HCO3 40.6 mmol/L (22.0-26.0) *H Arterial Blood Oxygen Saturation 87.4 % (95-100) *L Arterial Blood Base Excess 14.2 (-2-2) *H Chadwick Test Positive Microbiology Date/Time Source Procedure Growth Status 08/16/20 17:33 Femoral Right Catheter Tip Culture - Preliminary NO GROWTH Resulted Intake and Output 08/16/20 08/17/20 19:00 07:00 Intake Total 1410.000 ml Output Total 2600 ml 2800 ml Balance -1190.000 ml -2800 ml Intake Oral 50 ml IV Total 1360.000 ml Output Urine Total 2600 ml 2800 ml # Bowel Movements 2 5 Objective PHYSICAL EXAMINATION: GENERAL: The patient is well-developed, well-nourished male, in moderate respiratory distress. HEENT: Eyes, pupils are equal and responsive to light and accommodation. Extraocular movements are intact. NECK: Supple. No lymphadenopathy. CHEST: nasal canula; Lungs are clear to auscultation bilaterally without wheezes or rales. CARDIOVASCULAR: Regular rhythm and rate. S1-S2 are normal without murmurs, rubs, or gallops. ABDOMEN: Soft, nontender, and nondistended. Positive bowel sounds. No evidence of hepatosplenomegaly. Currently, no rebound or guarding noted. EXTREMITIES: Negative for clubbing, cyanosis, or edema. RECTAL/GENITAL: Not performed. NEUROLOGIC: Cranial nerves II through XII are grossly intact without focal deficits. Motor strength is 5/5 bilaterally. Deep tendon reflexes are 2+ plantar. Assessment/Plan Assessment/Plan ASSESSMENT: This is an 79-year-old male with. 1. Respiratory failure-intubated 08/05/20; extubated 08/14/20 2. Right-sided pneumonia. 3. Hypertension. 4. Congestive heart failure. 5. Chronic obstructive pulmonary disease. 6. Anemia. 7. Cerebrovascular disease, status post cerebrovascular accident. 8. Peripheral vascular disease. 9. Gastroesophageal reflux disease. 10. Major depression. 11. Seizure disorder. 12. History of COVID-19 positive in February 2020. 13. Benign prostatic hypertrophy. TREATMENT: 1. Respiratory failure/right-sided pneumonia pulmonary consultation= Dr. Micha Schneider. ABX= vancomycin and flagyl; S/P cefepime. Infectious Disease= Dr. Urrutia. Follow recommendations of Infectious Disease and Pulmonary. 2. Hypertension. The patient is currently hypotensive. 3. Congestive heart failure. 4. Chronic obstructive pulmonary disease. Continue DuoNeb as above. 5. Anemia. 6. Cerebrovascular disease. 7. Peripheral vascular disease. 8. Gastroesophageal reflux disease. Continue famotidine as above. 9. Major depression. Seizure disorder. 10. COVID-19 positive, history in February 2020. 11. Benign prostatic hypertrophy. Continue Flomax as above. Pablo Hickman MD Aug 17, 2020 19:19
--- NOTE | 2020-08-17 19:30 | NUR ---
NURSE HAND-OFF REPORT: Important Events on Shift: AMS, desating 88% Patient Status: stable Diet: NPO Pending Orders: ABG in 1hr, STAT CXR Pending Results/Labs:ABG Pending MD notification: Aditya Guerin due to K-Dur changing to IV potassium Latest Vital Signs: Temperature 98.4 , Pulse 84 , B/P 130 /71 , Respiratory Rate 35 , O2 SAT 93 , bipap with 14/8, 40% . Vital Sign Comment: stable EKG Rhythm: Sinus Rhythm Rhythm change?: N MD Notified?: - MD Response: Latest Castro Fall Score: 50 Fall Risk: High Risk Safety Measures: Call light Within Reach, Bed Alarm Zone 1, Side Rails Side Rails x3, Bed position Low and Locked. Fall Precautions: Yellow Socks Yellow Gown Door Sign Patient Fall Education Report given to ION Lopez.
--- NOTE | 2020-08-17 19:30 | NUR ---
NURSE NOTES: Pt report received from Leno LEMON. pt condition remains unchanged. pt is alert and oriented times 2, able to respond yes or no to simple questions. pt is on bipap, sating 92% O2, no further acute resp distress noted. pt is on school lunch monitor, showing NSR, no acute cardiac distress. pt bed is low, locked, armed, call light within reach, bed rails up times 3. will follow plan of care.
--- NOTE | 2020-08-17 19:40 | Diagnostic Imaging Report ---
EXAM: XR Chest, 1 View CLINICAL HISTORY: ALOC TECHNIQUE: Frontal view of the chest. COMPARISON: Chest radiograph on 08/14/2020 FINDINGS: Hardware: Interval removal of the endotracheal tube and enteric tube. Right-sided PICC line terminates in the region of the SVC. Lungs/pleura: Stable small bilateral pleural effusions with associated atelectasis versus pneumonia. Emphysematous changes. Mild volume loss of the right hemithorax again noted. Heart/mediastinum: Normal. No cardiomegaly. Soft tissues: Unremarkable. Bones: No acute fracture. Upper abdomen: Normal. IMPRESSION: 1. Interval removal of the endotracheal tube and enteric tube. Right- sided PICC line terminates in the region of the SVC. 2. Stable small bilateral pleural effusions with associated atelectasis versus pneumonia. Emphysematous changes.
[2020-08-17] MEDS: Miralax 17gm pkt ORAL SCH ×2 (21:00→21:01)
[2020-08-17] MEDS: Dyna-Hex 2% Top Sol 2oz TOPIC SCH (21:01)
--- NOTE | 2020-08-17 21:30 | NUR ---
NURSE NOTES: Pts 9PM meds passed.
--- NOTE | 2020-08-17 23:25 | NUR ---
NURSE NOTES: pt remains resting in bed. no change in condition. vital signs stable.
[2020-08-18] VITALS: BP 120/81
[2020-08-18] MEDS: D5 1/2NS 1,000 ML IV SCH (02:59)
[2020-08-18 04:00] VITALS: BP 112/80
[2020-08-18] MEDS: Gabapentin 300 MG/6 ML Soln NG SCH ×3 (05:06→21:02)
[2020-08-18 05:26] LABS: HEMATOCRIT 32.9 % (42.0-52.0); HEMOGLOBIN 9.9 G/DL (14.2-18.0); MEAN CORPUSCULAR VOLUME 89 FL (80-99); PLATELET COUNT 261 K/UL (150-450); RED BLOOD COUNT 3.67 M/UL (4.70-6.10); RED CELL DISTRIBUTION WIDTH 15.2 % (11.6-14.8); WHITE BLOOD COUNT 10.7 K/UL (4.8-10.8)
[2020-08-18 06:06] LABS: ALANINE AMINOTRANSFERASE 52 U/L (12-78); ALBUMIN 2.8 G/DL (3.4-5.0); ALBUMIN/GLOBULIN RATIO 0.9 (1.0-2.7); ALKALINE PHOSPHATASE 56 U/L (46-116); ANION GAP 4 mmol/L (5-15); ASPARTATE AMINO TRANSFERASE 41 U/L (15-37); BILIRUBIN,TOTAL 0.5 MG/DL (0.2-1.0); BLOOD UREA NITROGEN 11 mg/dL (7-18); CALCIUM 8.4 MG/DL (8.5-10.1); CARBON DIOXIDE 36 MMOL/L (21-32); CHLORIDE 95 MMOL/L (98-107); CREATININE 0.6 MG/DL (0.55-1.30); PHOSPHORUS 2.8 MG/DL (2.5-4.9); POTASSIUM 3.2 MMOL/L (3.5-5.1); SODIUM 135 MMOL/L (136-145)
--- NOTE | 2020-08-18 06:57 | NUR ---
NURSE HAND-OFF REPORT: Important Events on Shift:[Bipap monitoring.] Patient Status: [unchanged. monitor O2] Diet: [Dietitian Rand to follow up.] Pending Orders: [NA] Pending Results/Labs:[NA] Pending MD notification:[NA] Latest Vital Signs: Temperature 97.5 , Pulse 96 , B/P 112 /80 , Respiratory Rate 45 , O2 SAT 89 , Venturi Mask, O2 Flow Rate 2.0 . Vital Sign Comment: [monitor O2.] EKG Rhythm: Sinus Rhythm Rhythm change?: N MD Notified?: - MD Response: Latest Castro Fall Score: 50 Fall Risk: High Risk Safety Measures: Call light Within Reach, Bed Alarm Zone 1, Side Rails Side Rails x3, Bed position Low and Locked. Fall Precautions: Yellow Socks Yellow Gown Door Sign Patient Fall Education Report given to [Leno LEMON].
--- NOTE | 2020-08-18 07:00 | NUR ---
NURSE NOTES: Received report from ION Lopez. Pt in bed, closed eyes, responsive to verbal stimuli. Pt on Bipap with 14/8-60%. Sating 91-92%. Butler cath patent and intact. Side railsx3 up for safety. Pt on CHIVO mattress. PICC in right upper arm with 2 lumens and running D5 1/2NS @75ml/hr and purple lumen is unable to flush as endorsed. 2.5cm out as endorsed. Will continue to plan of care.
[2020-08-18 08:00] VITALS: BP 121/78
[2020-08-18] MEDS: Albuterol/Ipratropium 3ml neb HHN SCH ×4 (08:03→19:10)
--- NOTE | 2020-08-18 08:12 | NUR ---
RD ASSESSMENT & RECOMMENDATIONS SEE CARE ACTIVITY FOR COMPLETE ASSESSMENT DAILY ESTIMATED NEEDS: Needs based on Pulmonary, cardiac / 75.7kg abw 25-30 kcals/kg 4871-1051 total kcals 1.25-1.5 g protein/kg 95-114 g total protein 25-30 mL/kg 8190-1546 total fluid mLs NUTRITION DIAGNOSIS: Swallowing difficulty R/T respiratory failure as evidenced by pt is now extubated (08/14), NPO, now on Bipap w/ aspiration risk. CURRENT DIET:NPO, s/p extubation on 08/14, now on Bipap PO DIET RECOMMENDATIONS: LOW NA/ texture per BATTERY CHARGER TESTER ADDITIONAL RECOMMENDATIONS: 1) Calibrated bedscale wts 2) F/up w/ BATTERY CHARGER TESTER eval and rec 3) Monitor BGs w/ Solumedrol, need for carb controlled diet and/or NISS 4) Monitor lytes, replete as needed (K 3.2) 5) Monitor respiratory status: s/p extubation (08/14), now on Bipa W/ extended Bipap usage, rec TPN to meet est needs 6) With oral diet add FÉLIX BID for skin integrity
--- NOTE | 2020-08-18 08:43 | Cardiac Electrophysiology PN ---
Assessment/Plan Assessment/Plan 1. Respiratory failure. On IV antibiotic. Extubated 08/14/20 Echo showed EF 50%. On BIPAP again now 2. Questionable congestive heart failure. EF normal and BNP is only 39. 3. S/P Septic shock, off Levo 4. History of COVID pneumonia, status post vaccination for COVID. Currently on IV antibiotic and prednisone. Now off isolation 5. Questionable history of atrial fibrillation versus DVT on Eliquis 2.5 mg b. i.d. Currently in SR 6. Full Code Subjective Subjective In SDU extubated 08/14/20 In SR. Off restraints off fentanyl drip Off pressors on BIPAP with 60% Fio2. Altered Objective Last 24 Hour Vital Signs Date Time Temp Pulse Resp B/P (MAP) Pulse Ox O2 Delivery O2 Flow Rate FiO2 08/18/20 08:00 35 08/18/20 08:00 97.0 88 27 121/78 (92) 92 08/18/20 08:00 Bi-pap 2.0 08/18/20 05:34 96 45 89 60 08/18/20 04:00 Nasal Cannula 2.0 08/18/20 04:00 97.5 72 19 112/80 (91) 92 08/18/20 04:00 100 08/18/20 03:15 94 46 91 50 08/18/20 00:00 97.5 72 19 120/81 (94) 92 08/18/20 00:00 35 08/18/20 00:00 Nasal Cannula 2.0 08/18/20 00:00 93 08/17/20 23:53 90 43 96 50 08/17/20 23:53 91 41 90 Bi-Pap 50 90 43 96 08/17/20 21:28 84 43 95 50 08/17/20 20:00 97.7 84 20 111/84 (93) 91 08/17/20 20:00 Nasal Cannula 2.0 08/17/20 20:00 35 08/17/20 20:00 87 08/17/20 19:45 92 Bi-Pap 40 08/17/20 18:47 84 23 97 Bi-Pap 40 85 24 92 08/17/20 18:45 84 35 93 40 08/17/20 17:36 98.4 88 22 130/71 (90) 91 08/17/20 16:00 93 08/17/20 16:00 Nasal Cannula 2.0 08/17/20 16:00 98.2 90 22 139/80 (99) 94 08/17/20 12:00 98.2 96 22 131/75 (93) 100 08/17/20 12:00 101 08/17/20 12:00 Nasal Cannula 2.0 Intake and Output 08/17/20 08/18/20 19:00 07:00 Intake Total 75 ml 785 ml Output Total 3600 ml 900 ml Balance -3525 ml -115 ml IV Total 75 ml 785 ml Output Urine Total 3600 ml 900 ml # Bowel Movements 3 Laboratory Tests Test 08/17/20 17:33 08/17/20 19:45 08/18/20 02:55 08/18/20 08:24 Arterial Blood pH 7.444 (7.350-7.450) 7.476 (7.350-7.450) 7.466 (7.350-7.450) Arterial Blood Partial Pressure CO2 60.6 mmHg (35.0-45.0) *H 51.3 mmHg (35.0-45.0) H 47.0 mmHg (35.0-45.0) H Arterial Blood Partial Pressure O2 55.4 mmHg (75.0-100.0) L 56.2 mmHg (75.0-100.0) L 50.2 mmHg (75.0-100.0) L Arterial Blood HCO3 40.6 mmol/L (22.0-26.0) *H 37.0 mmol/L (22.0-26.0) H 33.1 mmol/L (22.0-26.0) H Arterial Blood Oxygen Saturation 87.4 % (95-100) *L 88.3 % (95-100) *L 85.5 % (95-100) *L Arterial Blood Base Excess 14.2 (-2-2) *H 11.8 (-2-2) *H 8.4 (-2-2) H Chawdick Test Positive Positive Positive White Blood Count 10.7 K/UL (4.8-10.8) Red Blood Count 3.67 M/UL (4.70-6.10) L Hemoglobin 9.9 G/DL (14.2-18.0) L Hematocrit 32.9 % (42.0-52.0) L Mean Corpuscular Volume 89 FL (80-99) Mean Corpuscular Hemoglobin 27.0 PG (27.0-31.0) Mean Corpuscular Hemoglobin Concent 30.1 G/DL (32.0-36.0) L Red Cell Distribution Width 15.2 % (11.6-14.8) H Platelet Count 261 K/UL (150-450) Mean Platelet Volume 6.3 FL (6.5-10.1) L Neutrophils (%) (Auto) % (45.0-75.0) Lymphocytes (%) (Auto) % (20.0-45.0) Monocytes (%) (Auto) % (1.0-10.0) Eosinophils (%) (Auto) % (0.0-3.0) Basophils (%) (Auto) % (0.0-2.0) Differential Total Cells Counted 100 Neutrophils % (Manual) 91 % (45-75) H Lymphocytes % (Manual) 5 % (20-45) L Monocytes % (Manual) 3 % (1-10) Eosinophils % (Manual) 0 % (0-3) Basophils % (Manual) 1 % (0-2) Band Neutrophils 0 % (0-8) Platelet Estimate Adequate Platelet Morphology Normal Hypochromasia 1+ Anisocytosis 1+ Sodium Level 135 MMOL/L (136-145) L Potassium Level 3.2 MMOL/L (3.5-5.1) L Chloride Level 95 MMOL/L (98-107) L Carbon Dioxide Level 36 MMOL/L (21-32) H Anion Gap 4 mmol/L (5-15) L Blood Urea Nitrogen 11 mg/dL (7-18) Creatinine 0.6 MG/DL (0.55-1.30) Estimat Glomerular Filtration Rate > 60 mL/min (>60) Glucose Level 152 MG/DL (74-106) H Calcium Level 8.4 MG/DL (8.5-10.1) L Phosphorus Level 2.8 MG/DL (2.5-4.9) Magnesium Level 1.8 MG/DL (1.8-2.4) Total Bilirubin 0.5 MG/DL (0.2-1.0) Aspartate Amino Transf (AST/SGOT) 41 U/L (15-37) H Alanine Aminotransferase (ALT/SGPT) 52 U/L (12-78) Alkaline Phosphatase 56 U/L (46-116) Total Protein 6.0 G/DL (6.4-8.2) L Albumin 2.8 G/DL (3.4-5.0) L Globulin 3.2 g/dL Albumin/Globulin Ratio 0.9 (1.0-2.7) L Microbiology Date/Time Source Procedure Growth Status 08/16/20 17:33 Femoral Right Catheter Tip Culture - Preliminary NO GROWTH Resulted Objective HEAD AND NECK: No JVD on BIPAP LUNGS: Coarse rhonchi. CARDIOVASCULAR: Regular S1 and S2 with no gallop. ABDOMEN: Soft. EXTREMITIES: 1 plus pitting edema. Devyn Magdaleno MD Aug 18, 2020 08:43
[2020-08-18] MEDS: Solu-MEDROL 40mg Inj IVP SCH ×4 (08:52→23:33)
[2020-08-18] MEDS: Docusate 100mg/10ml Liq NG SCH ×2 (08:52→20:48)
[2020-08-18] MEDS: Cefepime 2gm/D5W 110ml IV SCH ×4 (08:56→20:54)
[2020-08-18] MEDS: Enoxaparin 60mg Inj SUBQ SCH ×2 (08:59→20:57)
--- NOTE | 2020-08-18 09:29 | Pulmonology Progress Note ---
Subjective ROS Limited/Unobtainable: Yes Interval Events: Intubated 08/05/20; extubated 08/14/20; now on BiPAP Constitutional: Denies: fever HEENT: Repors: no symptoms Respiratory: Reports: shortness of breath Cardiovascular: Reports: no symptoms Gastrointestinal/Abdominal: Denies: nausea, vomiting, diarrhea Genitourinary: Reports: no symptoms Neurologic: Reports: no symptoms Psychiatric: Reports: other - NA Skin: Denies: rash Musculoskeletal: Denies: pain Allergies: Coded Allergies: PENICILLINS (Verified Allergy, Unknown, 03/10/20) PHENYTOIN (Verified Allergy, Unknown, 03/10/20) Objective Last 24 Hour Vital Signs Date Time Temp Pulse Resp B/P (MAP) Pulse Ox O2 Delivery O2 Flow Rate FiO2 08/18/20 08:00 35 08/18/20 08:00 96 08/18/20 08:00 97.0 88 27 121/78 (92) 92 08/18/20 08:00 Bi-pap 2.0 08/18/20 05:34 96 45 89 60 08/18/20 04:00 Nasal Cannula 2.0 08/18/20 04:00 97.5 72 19 112/80 (91) 92 08/18/20 04:00 100 08/18/20 03:15 94 46 91 50 08/18/20 00:00 97.5 72 19 120/81 (94) 92 08/18/20 00:00 35 08/18/20 00:00 Nasal Cannula 2.0 08/18/20 00:00 93 08/17/20 23:53 90 43 96 50 08/17/20 23:53 91 41 90 Bi-Pap 50 90 43 96 08/17/20 21:28 84 43 95 50 08/17/20 20:00 97.7 84 20 111/84 (93) 91 08/17/20 20:00 Nasal Cannula 2.0 08/17/20 20:00 35 08/17/20 20:00 87 08/17/20 19:45 92 Bi-Pap 40 08/17/20 18:47 84 23 97 Bi-Pap 40 85 24 92 08/17/20 18:45 84 35 93 40 08/17/20 17:36 98.4 88 22 130/71 (90) 91 08/17/20 16:00 93 08/17/20 16:00 Nasal Cannula 2.0 08/17/20 16:00 98.2 90 22 139/80 (99) 94 08/17/20 12:00 98.2 96 22 131/75 (93) 100 08/17/20 12:00 101 08/17/20 12:00 Nasal Cannula 2.0 Intake and Output 08/17/20 08/18/20 19:00 07:00 Intake Total 75 ml 785 ml Output Total 3600 ml 900 ml Balance -3525 ml -115 ml IV Total 75 ml 785 ml Output Urine Total 3600 ml 900 ml # Bowel Movements 3 Objective On BiPAP last 12 hours General Appearance: no acute distress HEENT: normocephalic Respiratory: chest wall non-tender, lungs clear Cardiovascular: normal peripheral pulses, normal rate Abdomen: normal bowel sounds Extremities: no cyanosis Microbiology Date/Time Source Procedure Growth Status 08/16/20 17:33 Femoral Right Catheter Tip Culture - Preliminary NO GROWTH Resulted Laboratory Tests 08/17/20 17:33: Arterial Blood pH 7.444, Arterial Blood Partial Pressure CO2 60.6*H, Arterial Blood Partial Pressure O2 55.4L, Arterial Blood HCO3 40.6*H, Arterial Blood Oxygen Saturation 87.4*L, Arterial Blood Base Excess 14.2*H, Chadwick Test Positive 08/17/20 19:45: Arterial Blood pH 7.476H, Arterial Blood Partial Pressure CO2 51.3H, Arterial Blood Partial Pressure O2 56.2L, Arterial Blood HCO3 37.0H, Arterial Blood Oxygen Saturation 88.3*L, Arterial Blood Base Excess 11.8*H, Chadwick Test Positive 08/18/20 02:55: White Blood Count 10.7, Red Blood Count 3.67L, Hemoglobin 9.9L, Hematocrit 32.9L , Mean Corpuscular Volume 89, Mean Corpuscular Hemoglobin 27.0, Mean Corpuscular Hemoglobin Concent 30.1L, Red Cell Distribution Width 15.2H, Platelet Count 261, Mean Platelet Volume 6.3L, Neutrophils (%) (Auto) , Lymphocytes (%) (Auto) , Monocytes (%) (Auto) , Eosinophils (%) (Auto) , Basophils (%) (Auto) , Differential Total Cells Counted 100, Neutrophils % (Manual) 91H, Lymphocytes % (Manual) 5L, Monocytes % (Manual) 3, Eosinophils % (Manual) 0, Basophils % (Ma nual) 1, Band Neutrophils 0, Platelet Estimate Adequate, Platelet Morphology Normal, Hypochromasia 1+, Anisocytosis 1+, Sodium Level 135L, Potassium Level 3.2L, Chloride Level 95L, Carbon Dioxide Level 36H, Anion Gap 4L, Blood Urea Nitrogen 11, Creatinine 0.6, Estimat Glomerular Filtration Rate > 60, Glucose Level 152H, Calcium Level 8.4L, Phosphorus Level 2.8, Magnesium Level 1.8, Total Bilirubin 0.5, Aspartate Amino Transf (AST/SGOT) 41H, Alanine Aminotransferase (ALT/SGPT) 52, Alkaline Phosphatase 56, Total Protein 6.0L, Albumin 2.8L, Globulin 3.2, Albumin/Globulin Ratio 0.9L 08/18/20 08:24: Arterial Blood pH 7.466H, Arterial Blood Partial Pressure CO2 47.0H, Arterial Blood Partial Pressure O2 50.2L, Arterial Blood HCO3 33.1H, Arterial Blood Oxygen Saturation 85.5*L, Arterial Blood Base Excess 8.4H, Chadwick Test Positive Current Medications Medications (Trade) Dose Ordered Sig/Armand Route PRN Reason Start Time Stop Time Status Last Admin Dose Admin Acetaminophen (Tylenol) 650 mg Q6H PRN NG Mild Pain (Pain Scale 1-3) 08/08/20 14:00 09/07/20 13:59 08/13/20 17:02 Acetaminophen (Tylenol) 650 mg Q6H PRN NG Temp >100.5 08/08/20 14:00 09/07/20 13:59 Albuterol/ Ipratropium (Albuterol/ Ipratropium) 3 ml Q4H PRN HHN Shortness of Breath 08/17/20 18:30 08/22/20 18:29 08/17/20 18:46 Albuterol/ Ipratropium (Albuterol/ Ipratropium) 3 ml Q8HRT HHN 08/17/20 23:00 08/22/20 22:59 08/18/20 08:03 Cefepime HCl 2 gm/ Dextrose 110 ml @ 220 mls/hr EVERY 12 HOURS IV 08/05/20 21:00 08/18/20 23:59 08/18/20 08:56 Chlorhexidine Gluconate (Maddie-Hex 2%) 1 applic DAILY@2000 TOPIC 08/07/20 20:00 11/05/20 19:59 08/17/20 21:01 Dextrose/Sodium Chloride 1,000 ml @ 75 mls/hr [id number] IV 08/06/20 11:00 09/05/20 10:59 08/18/20 02:59 Docusate Sodium (Colace) 100 mg EVERY 12 HOURS NG 08/13/20 21:00 09/11/20 17:59 08/16/20 21:12 Enoxaparin Sodium (Lovenox) 60 mg EVERY 12 HOURS SUBQ 08/05/20 21:00 11/03/20 20:59 08/18/20 08:59 Famotidine (Pepcid I.v.) 20 mg Q12HR IVP 08/06/20 11:00 09/05/20 10:59 08/18/20 08:52 Gabapentin (Neurontin) 300 mg EVERY 8 HOURS NG 08/08/20 22:00 09/04/20 08:59 08/17/20 14:36 Methylprednisolone Sodium Succinate (Solu-MEDROL) 40 mg Q6HR IVP 08/18/20 09:15 11/15/20 20:59 UNV Polyethylene Glycol (Miralax) 17 gm BEDTIME ORAL 08/12/20 21:00 09/11/20 20:59 08/16/20 21:12 Potassium Chloride (K-Dur) 40 meq TWICE A DAY ORAL 08/17/20 10:00 11/15/20 09:59 08/17/20 10:44 Assessment/Plan Assessment/Plan 1. UTI -On empiric antibiotics -Follow-up UCx negative (08/03) 2. Pneumonia -On broad-spectrum antibiotics - CXR concerning for volume loss; latest CXR shows RUL atelectasis - CT chest shows dense RUL and RML consolidation - High suspicion for RBI narrowing ; no obvious endobronchial narrowing noted on bronchoscopy 3. COPD exacerbation -Now extubated 4. Respiratory distress - desaturated and became confused on 2L NC overnight -> now on BPAP 148, 80% FiO2 saturating at 98% - continue steroids - added HHN with mucomyst and duonebs - intensified pulm hygiene with VEST and CPT 5. History of seizures -Risk of aspiration -Monitor for seizure activity 6. Elevated CRP -D-dimer wnl -His outpatient medications include Eliquis (hx of A fib?) - Continue Eliquis Transfer to tele order canceled due to acute change in status, now on BPAP The care for this patient was discussed with my supervising physician Time spent for this case was approximately 31 minutes Edwin Beckham Aug 18, 2020 09:28 Micha Schneider MD Aug 18, 2020 09:55
--- NOTE | 2020-08-18 11:44 | Surgery Progress Note ---
Surgery Progress Note Subjective Symptoms: improved, tolerating diet, passing flatus Objective Last 24 Hour Vital Signs Date Time Temp Pulse Resp B/P (MAP) Pulse Ox O2 Delivery O2 Flow Rate FiO2 08/18/20 08:00 35 08/18/20 08:00 96 08/18/20 08:00 97.0 88 27 121/78 (92) 92 08/18/20 08:00 Bi-pap 2.0 08/18/20 05:34 96 45 89 60 08/18/20 04:00 Nasal Cannula 2.0 08/18/20 04:00 97.5 72 19 112/80 (91) 92 08/18/20 04:00 100 08/18/20 03:15 94 46 91 50 08/18/20 00:00 97.5 72 19 120/81 (94) 92 08/18/20 00:00 35 08/18/20 00:00 Nasal Cannula 2.0 08/18/20 00:00 93 08/17/20 23:53 90 43 96 50 08/17/20 23:53 91 41 90 Bi-Pap 50 90 43 96 08/17/20 21:28 84 43 95 50 08/17/20 20:00 97.7 84 20 111/84 (93) 91 08/17/20 20:00 Nasal Cannula 2.0 08/17/20 20:00 35 08/17/20 20:00 87 08/17/20 19:45 92 Bi-Pap 40 08/17/20 18:47 84 23 97 Bi-Pap 40 85 24 92 08/17/20 18:45 84 35 93 40 08/17/20 17:36 98.4 88 22 130/71 (90) 91 08/17/20 16:00 93 08/17/20 16:00 Nasal Cannula 2.0 08/17/20 16:00 98.2 90 22 139/80 (99) 94 08/17/20 12:00 98.2 96 22 131/75 (93) 100 08/17/20 12:00 101 08/17/20 12:00 Nasal Cannula 2.0 I&O Intake and Output 08/17/20 08/18/20 19:00 07:00 Intake Total 900 ml 860 ml Output Total 3600 ml 900 ml Balance -2700 ml -40 ml IV Total 900 ml 860 ml Output Urine Total 3600 ml 900 ml # Bowel Movements 3 Dressing: saturated Cardiovascular: RSR Respiratory: decreased breath sounds Abdomen: soft, flat, non-tender, present bowel sounds, non-distended Extremities: no edema, no tenderness, no cyanosis Laboratory Tests Test 08/17/20 17:33 08/17/20 19:45 08/18/20 02:55 08/18/20 08:24 Arterial Blood pH 7.444 (7.350-7.450) 7.476 (7.350-7.450) 7.466 (7.350-7.450) Arterial Blood Partial Pressure CO2 60.6 mmHg (35.0-45.0) *H 51.3 mmHg (35.0-45.0) H 47.0 mmHg (35.0-45.0) H Arterial Blood Partial Pressure O2 55.4 mmHg (75.0-100.0) L 56.2 mmHg (75.0-100.0) L 50.2 mmHg (75.0-100.0) L Arterial Blood HCO3 40.6 mmol/L (22.0-26.0) *H 37.0 mmol/L (22.0-26.0) H 33.1 mmol/L (22.0-26.0) H Arterial Blood Oxygen Saturation 87.4 % (95-100) *L 88.3 % (95-100) *L 85.5 % (95-100) *L Arterial Blood Base Excess 14.2 (-2-2) *H 11.8 (-2-2) *H 8.4 (-2-2) H Chadwick Test Positive Positive Positive White Blood Count 10.7 K/UL (4.8-10.8) Red Blood Count 3.67 M/UL (4.70-6.10) L Hemoglobin 9.9 G/DL (14.2-18.0) L Hematocrit 32.9 % (42.0-52.0) L Mean Corpuscular Volume 89 FL (80-99) Mean Corpuscular Hemoglobin 27.0 PG (27.0-31.0) Mean Corpuscular Hemoglobin Concent 30.1 G/DL (32.0-36.0) L Red Cell Distribution Width 15.2 % (11.6-14.8) H Platelet Count 261 K/UL (150-450) Mean Platelet Volume 6.3 FL (6.5-10.1) L Neutrophils (%) (Auto) % (45.0-75.0) Lymphocytes (%) (Auto) % (20.0-45.0) Monocytes (%) (Auto) % (1.0-10.0) Eosinophils (%) (Auto) % (0.0-3.0) Basophils (%) (Auto) % (0.0-2.0) Differential Total Cells Counted 100 Neutrophils % (Manual) 91 % (45-75) H Lymphocytes % (Manual) 5 % (20-45) L Monocytes % (Manual) 3 % (1-10) Eosinophils % (Manual) 0 % (0-3) Basophils % (Manual) 1 % (0-2) Band Neutrophils 0 % (0-8) Platelet Estimate Adequate Platelet Morphology Normal Hypochromasia 1+ Anisocytosis 1+ Sodium Level 135 MMOL/L (136-145) L Potassium Level 3.2 MMOL/L (3.5-5.1) L Chloride Level 95 MMOL/L (98-107) L Carbon Dioxide Level 36 MMOL/L (21-32) H Anion Gap 4 mmol/L (5-15) L Blood Urea Nitrogen 11 mg/dL (7-18) Creatinine 0.6 MG/DL (0.55-1.30) Estimat Glomerular Filtration Rate > 60 mL/min (>60) Glucose Level 152 MG/DL (74-106) H Calcium Level 8.4 MG/DL (8.5-10.1) L Phosphorus Level 2.8 MG/DL (2.5-4.9) Magnesium Level 1.8 MG/DL (1.8-2.4) Total Bilirubin 0.5 MG/DL (0.2-1.0) Aspartate Amino Transf (AST/SGOT) 41 U/L (15-37) H Alanine Aminotransferase (ALT/SGPT) 52 U/L (12-78) Alkaline Phosphatase 56 U/L (46-116) Total Protein 6.0 G/DL (6.4-8.2) L Albumin 2.8 G/DL (3.4-5.0) L Globulin 3.2 g/dL Albumin/Globulin Ratio 0.9 (1.0-2.7) L Plan Problems: (1) Abdominal distension Assessment & Plan: 79M abdominal distention, respiratory decline, altered mental status. on exam noted abd soft, mild distended, non tender. no n/v/f/c. unlikely aspiration. non tender one exam. pending urine and covid test. no acute surgical intervention. hold on ct. kub ordered. will follow with exam and recs. keep npo for now. iv fluids. respiratory pulm support. will follow with recs thank you decline since admission now intubated ng tube to suction no acute surgical intervention cont abx kub noted wean vent enema when stable improved tolerating diet cont diet no n/v labs okay The rectum is considerably distended with stool. Considerable stool is also seen in the descending colon. The colon is diffusely gas filled, upper limits of normal in caliber. No significant small bowel gas demonstrated. No masses or unusual calcifications. The included lung bases demonstrate bilateral right greater than left pleural effusions. There is a Butler catheter Impression: Distended stool-filled rectum, fecal impaction possible Gas-filled upper limits of normal caliber colon, nonspecific Bilateral right greater than left pleural effusions (2) UTI (urinary tract infection) (3) Pneumonia (4) Multiple pulmonary nodules (5) Respiratory failure with hypoxia Assessment & Plan: cont weaning (6) Pneumonia due to COVID-19 virus (7) History of CVA (cerebrovascular accident) (8) COPD (chronic obstructive pulmonary disease) (9) HTN (hypertension) (10) Hx of prostatic malignancy (11) Major depression (12) Seizure disorder Destin Brown Aug 18, 2020 11:44
[2020-08-18] MEDS: Acetylcysteine 20% Soln 4ml HHN SCH ×3 (11:45→19:10)
[2020-08-18 12:00] VITALS: BP 108/68
--- NOTE | 2020-08-18 13:48 | Nephrology Progress Note ---
Assessment/Plan Problem List: (1) Oliguria (2) Electrolyte imbalance (3) Pneumonia (4) Respiratory failure with hypoxia (5) Pneumonia due to COVID-19 virus (6) Seizure disorder (7) Anemia Assessment Sepsis, respiratory failure Pneumonia and possible aspiration. Questionable COVID-19 infection UTI Abnormal electrolytes Questionable CHF Anemia Plan August 18: Patient's clinical condition deteriorated. Back on BiPAP. Mental status down. Cannot take p.o. Will give potassium IV. Patient remains full code. Continue per general production manager. Hypotonic IV fluid changed to isotonic August 17: Continues to tolerate extubation. Not in any distress and verbal. Labs reviewed. Low potassium addressed. Patient full code. Medication list reviewed. Continue per consultants. August 16: Post extubation. Tolerating well. Labs reviewed. Low potassium addressed. Continue per consultants. Stable from renal standpoint of view. Full code. August 15: Patient extubated on oxygen with cannula. Variable asking for coffee. Renal parameters stable. Continue per consultants. August 14: Status unchanged. Remains full code, intubated, on ventilator, FiO2 of 40%. Labs reviewed. Renal parameters stable. Hemoglobin lower. Suggest transfusion. August 13: Status quo. Remains full code, intubated, on FiO2 of 40%. Labs r eviewed. Renal parameters stable. Continue per consultants. August 12: Intubated on ventilator. FiO2 40% unchanged. Full code. Labs reviewed. Renal parameters stable. Continue per consultants. August 11: Intubated on ventilator. O2 40%. Full code. Medication list reviewed. Labs reviewed. Stable from renal standpoint of view. Continue per consultants. August 10: Status quo. Intubated on ventilator. FiO2 remains 40%. Renal parameters stable. Continue per current management. Potassium and phosphorus supplement given August 09: Full code. Intubated on ventilator. FiO2 40%. Labs reviewed. Stable from renal standpoint of view. August 08: Labs reviewed. Renal parameters stable. Abnormal electrolytes addressed. Remains full code. FiO2 50%. Continue per consultants. Discussed with RN. August 07: Labs reviewed. K Phos IV given. Patient intubated. Full code. FiO2 60%. Medication list reviewed. Continue per consultants. Previously: Optimize pulmonary status Optimize cardiac status Monitor renal parameters, urine output, electrolytes Change IV to half-normal saline Anemia mansfield Insert NG tube and start feeding Per orders Subjective ROS Limited/Unobtainable: Yes Objective Objective Last 24 Hour Vital Signs Date Time Temp Pulse Resp B/P (MAP) Pulse Ox O2 Delivery O2 Flow Rate FiO2 08/18/20 12:00 101 08/18/20 12:00 96.8 91 27 108/68 (81) 98 08/18/20 12:00 80 08/18/20 12:00 Bi-pap 08/18/20 08:00 60 08/18/20 08:00 96 08/18/20 08:00 97.0 88 27 121/78 (92) 92 08/18/20 08:00 Bi-pap 2.0 08/18/20 05:34 96 45 89 60 08/18/20 04:00 Nasal Cannula 2.0 08/18/20 04:00 97.5 72 19 112/80 (91) 92 08/18/20 04:00 100 08/18/20 03:15 94 46 91 50 08/18/20 00:00 97.5 72 19 120/81 (94) 92 08/18/20 00:00 35 08/18/20 00:00 Nasal Cannula 2.0 08/18/20 00:00 93 08/17/20 23:53 90 43 96 50 08/17/20 23:53 91 41 90 Bi-Pap 50 90 43 96 08/17/20 21:28 84 43 95 50 08/17/20 20:00 97.7 84 20 111/84 (93) 91 08/17/20 20:00 Nasal Cannula 2.0 08/17/20 20:00 35 08/17/20 20:00 87 08/17/20 19:45 92 Bi-Pap 40 08/17/20 18:47 84 23 97 Bi-Pap 40 85 24 92 08/17/20 18:45 84 35 93 40 08/17/20 17:36 98.4 88 22 130/71 (90) 91 08/17/20 16:00 93 08/17/20 16:00 Nasal Cannula 2.0 08/17/20 16:00 98.2 90 22 139/80 (99) 94 Intake and Output 08/17/20 08/18/20 19:00 07:00 Intake Total 900 ml 860 ml Output Total 3600 ml 900 ml Balance -2700 ml -40 ml IV Total 900 ml 860 ml Output Urine Total 3600 ml 900 ml # Bowel Movements 3 Current Medications Medications (Trade) Dose Ordered Sig/Armand Route PRN Reason Start Time Stop Time Status Last Admin Dose Admin Acetaminophen (Tylenol) 650 mg Q6H PRN NG Mild Pain (Pain Scale 1-3) 08/08/20 14:00 09/07/20 13:59 08/13/20 17:02 Acetaminophen (Tylenol) 650 mg Q6H PRN NG Temp >100.5 08/08/20 14:00 09/07/20 13:59 Acetylcysteine (Mucomyst) 200 mg Q6HRT HHN 08/18/20 10:30 11/16/20 10:29 08/18/20 11:45 Albuterol/ Ipratropium (Albuterol/ Ipratropium) 3 ml Q4H PRN HHN Shortness of Breath 08/17/20 18:30 08/22/20 18:29 08/17/20 18:46 Albuterol/ Ipratropium (Albuterol/ Ipratropium) 3 ml Q6HRT HHN 08/18/20 10:30 08/23/20 10:29 08/18/20 11:45 Cefepime HCl 2 gm/ Dextrose 110 ml @ 220 mls/hr EVERY 12 HOURS IV 08/05/20 21:00 08/18/20 23:59 08/18/20 08:56 Chlorhexidine Gluconate (Maddie-Hex 2%) 1 applic DAILY@2000 TOPIC 08/07/20 20:00 11/05/20 19:59 08/17/20 21:01 Dextrose/Sodium Chloride 1,000 ml @ 75 mls/hr [id number] IV 08/06/20 11:00 09/05/20 10:59 08/18/20 02:59 Docusate Sodium (Colace) 100 mg EVERY 12 HOURS NG 08/13/20 21:00 09/11/20 17:59 08/16/20 21:12 Enoxaparin Sodium (Lovenox) 60 mg EVERY 12 HOURS SUBQ 08/05/20 21:00 11/03/20 20:59 08/18/20 08:59 Famotidine (Pepcid I.v.) 20 mg Q12HR IVP 08/06/20 11:00 09/05/20 10:59 08/18/20 08:52 Gabapentin (Neurontin) 300 mg EVERY 8 HOURS NG 08/08/20 22:00 09/04/20 08:59 08/17/20 14:36 Methylprednisolone Sodium Succinate (Solu-MEDROL) 40 mg Q6HR IVP 08/18/20 12:00 11/15/20 11:59 08/18/20 12:33 Polyethylene Glycol (Miralax) 17 gm BEDTIME ORAL 08/12/20 21:00 09/11/20 20:59 08/16/20 21:12 Potassium Chloride 100 ml @ 100 mls/hr Q1HR IVPB 08/18/20 14:00 08/18/20 17:59 UNV Potassium Chloride (K-Dur) 40 meq TWICE A DAY ORAL 08/17/20 10:00 11/15/20 09:59 08/17/20 10:44 Laboratory Tests 08/17/20 17:33: Arterial Blood pH 7.444, Arterial Blood Partial Pressure CO2 60.6*H, Arterial Blood Partial Pressure O2 55.4L, Arterial Blood HCO3 40.6*H, Arterial Blood Oxygen Saturation 87.4*L, Arterial Blood Base Excess 14.2*H, Chadwick Test Positive 08/17/20 19:45: Arterial Blood pH 7.476H, Arterial Blood Partial Pressure CO2 51.3H, Arterial Blood Partial Pressure O2 56.2L, Arterial Blood HCO3 37.0H, Arterial Blood Oxygen Saturation 88.3*L, Arterial Blood Base Excess 11.8*H, Chadwick Test Positive 08/18/20 02:55: White Blood Count 10.7, Red Blood Count 3.67L, Hemoglobin 9.9L, Hematocrit 32.9L , Mean Corpuscular Volume 89, Mean Corpuscular Hemoglobin 27.0, Mean Corpuscular Hemoglobin Concent 30.1L, Red Cell Distribution Width 15.2H, Platelet Count 261, Mean Platelet Volume 6.3L, Neutrophils (%) (Auto) , Lymphocytes (%) (Auto) , Monocytes (%) (Auto) , Eosinophils (%) (Auto) , Basophils (%) (Auto) , Differential Total Cells Counted 100, Neutrophils % (Manual) 91H, Lymphocytes % (Manual) 5L, Monocytes % (Manual) 3, Eosinophils % (Manual) 0, Basophils % (Manual) 1, Band Neutrophils 0, Platelet Estimate Adequate, Platelet Morphology Normal, Hypochromasia 1+, Anisocytosis 1+, Sodium Level 135L, Potassium Level 3.2L, Chloride Level 95L, Carbon Dioxide Level 36H, Anion Gap 4L, Blood Urea Nitrogen 11, Creatinine 0.6, Estimat Glomerular Filtration Rate > 60, Glucose Level 152H, Calcium Level 8.4L, Phosphorus Level 2.8, Magnesium Level 1.8, Total Bilirubin 0.5, Aspartate Amino Transf (AST/SGOT) 41H, Alanine Aminotransferase (ALT/SGPT) 52, Alkaline Phosphatase 56, Total Protein 6.0L, Albumin 2.8L, Globulin 3.2, Albumin/Globulin Ratio 0.9L 08/18/20 08:24: Arterial Blood pH 7.466H, Arterial Blood Partial Pressure CO2 47.0H, Arterial Blood Partial Pressure O2 50.2L, Arterial Blood HCO3 33.1H, Arterial Blood Oxygen Saturation 85.5*L, Arterial Blood Base Excess 8.4H, Chadwick Test Positive Height (Feet): 6 Height (Inches): 1.00 Weight (Pounds): 190 General Appearance: mild distress EENT: other - Patient now on BiPAP Cardiovascular: tachycardia Respiratory/Chest: decreased breath sounds Abdomen: distended Aashish Burgess MD Aug 18, 2020 13:48
--- NOTE | 2020-08-18 15:37 | Diagnostic Imaging Report ---
Indication: Cough Technique: One view of the chest Comparison: 08/17/2020 Findings: There is increasing atelectasis and consolidation of the right upper lobe. Infiltrates versus chronic changes of the mid and lower lungs are again demonstrated. Right arm PICC remains. Right midlung and left lung emphysematous changes are stable. Right-sided pleural effusion persists, unchanged. Impression: New/increased right upper lobe infiltrate and atelectasis
[2020-08-18 16:00] VITALS: BP 107/68
--- NOTE | 2020-08-18 17:04 | Internal Med Progress Note ---
Subjective Date of Service: Aug 18, 2020 Physician Name Pablo Hickman Attending Physician Torres Saul MD Current Medications Medications (Trade) Dose Ordered Sig/Armand Route PRN Reason Start Time Stop Time Status Last Admin Dose Admin Acetaminophen (Tylenol) 650 mg Q6H PRN NG Mild Pain (Pain Scale 1-3) 08/08/20 14:00 09/07/20 13:59 08/13/20 17:02 Acetaminophen (Tylenol) 650 mg Q6H PRN NG Temp >100.5 08/08/20 14:00 09/07/20 13:59 Acetylcysteine (Mucomyst) 200 mg Q6HRT HHN 08/18/20 10:30 11/16/20 10:29 08/18/20 11:45 Albuterol/ Ipratropium (Albuterol/ Ipratropium) 3 ml Q4H PRN HHN Shortness of Breath 08/17/20 18:30 08/22/20 18:29 08/17/20 18:46 Albuterol/ Ipratropium (Albuterol/ Ipratropium) 3 ml Q6HRT HHN 08/18/20 10:30 08/23/20 10:29 08/18/20 11:45 Cefepime HCl 2 gm/ Dextrose 110 ml @ 220 mls/hr EVERY 12 HOURS IV 08/05/20 21:00 08/18/20 23:59 08/18/20 08:56 Chlorhexidine Gluconate (Maddie-Hex 2%) 1 applic DAILY@2000 TOPIC 08/07/20 20:00 11/05/20 19:59 08/17/20 21:01 Dextrose/ Electrolytes 1,000 ml @ 50 mls/hr Q20H IV 08/18/20 15:00 09/17/20 14:59 08/18/20 15:15 Docusate Sodium (Colace) 100 mg EVERY 12 HOURS NG 08/13/20 21:00 09/11/20 17:59 08/16/20 21:12 Enoxaparin Sodium (Lovenox) 60 mg EVERY 12 HOURS SUBQ 08/05/20 21:00 11/03/20 20:59 08/18/20 08:59 Famotidine (Pepcid I.v.) 20 mg Q12HR IVP 08/06/20 11:00 09/05/20 10:59 08/18/20 08:52 Gabapentin (Neurontin) 300 mg EVERY 8 HOURS NG 08/08/20 22:00 09/04/20 08:59 08/17/20 14:36 Methylprednisolone Sodium Succinate (Solu-MEDROL) 40 mg Q6HR IVP 08/18/20 12:00 11/15/20 11:59 08/18/20 12:33 Polyethylene Glycol (Miralax) 17 gm BEDTIME ORAL 08/12/20 21:00 09/11/20 20:59 08/16/20 21:12 Potassium Chloride 100 ml @ 100 mls/hr Q1HR IVPB 08/18/20 15:00 08/18/20 18:59 08/18/20 16:12 Allergies: Coded Allergies: PENICILLINS (Verified Allergy, Unknown, 03/10/20) PHENYTOIN (Verified Allergy, Unknown, 03/10/20) ROS Limited/Unobtainable: Yes Subjective 79 YO M admitted with respiratory distress. Now pneumonia. Cover for [facility] Med- Dr Saul. Step down unit. Extubated 08/14/20 Objective Last Vital Signs Date Time Temp Pulse Resp B/P (MAP) Pulse Ox O2 Delivery O2 Flow Rate FiO2 08/18/20 16:14 80 08/18/20 16:00 Bi-pap 08/18/20 16:00 98.1 92 24 107/68 (81) 100 08/18/20 08:00 2.0 Laboratory Tests Test 08/17/20 17:33 08/17/20 19:45 08/18/20 02:55 08/18/20 08:24 Arterial Blood pH 7.444 (7.350-7.450) 7.476 (7.350-7.450) 7.466 (7.350-7.450) Arterial Blood Partial Pressure CO2 60.6 mmHg (35.0-45.0) *H 51.3 mmHg (35.0-45.0) H 47.0 mmHg (35.0-45.0) H Arterial Blood Partial Pressure O2 55.4 mmHg (75.0-100.0) L 56.2 mmHg (75.0-100.0) L 50.2 mmHg (75.0-100.0) L Arterial Blood HCO3 40.6 mmol/L (22.0-26.0) *H 37.0 mmol/L (22.0-26.0) H 33.1 mmol/L (22.0-26.0) H Arterial Blood Oxygen Saturation 87.4 % (95-100) *L 88.3 % (95-100) *L 85.5 % (95-100) *L Arterial Blood Base Excess 14.2 (-2-2) *H 11.8 (-2-2) *H 8.4 (-2-2) H Chadwick Test Positive Positive Positive White Blood Count 10.7 K/UL (4.8-10.8) Red Blood Count 3.67 M/UL (4.70-6.10) L Hemoglobin 9.9 G/DL (14.2-18.0) L Hematocrit 32.9 % (42.0-52.0) L Mean Corpuscular Volume 89 FL (80-99) Mean Corpuscular Hemoglobin 27.0 PG (27.0-31.0) Mean Corpuscular Hemoglobin Concent 30.1 G/DL (32.0-36.0) L Red Cell Distribution Width 15.2 % (11.6-14.8) H Platelet Count 261 K/UL (150-450) Mean Platelet Volume 6.3 FL (6.5-10.1) L Neutrophils (%) (Auto) % (45.0-75.0) Lymphocytes (%) (Auto) % (20.0-45.0) Monocytes (%) (Auto) % (1.0-10.0) Eosinophils (%) (Auto) % (0.0-3.0) Basophils (%) (Auto) % (0.0-2.0) Differential Total Cells Counted 100 Neutrophils % (Manual) 91 % (45-75) H Lymphocytes % (Manual) 5 % (20-45) L Monocytes % (Manual) 3 % (1-10) Eosinophils % (Manual) 0 % (0-3) Basophils % (Manual) 1 % (0-2) Band Neutrophils 0 % (0-8) Platelet Estimate Adequate Platelet Morphology Normal Hypochromasia 1+ Anisocytosis 1+ Sodium Level 135 MMOL/L (136-145) L Potassium Level 3.2 MMOL/L (3.5-5.1) L Chloride Level 95 MMOL/L (98-107) L Carbon Dioxide Level 36 MMOL/L (21-32) H Anion Gap 4 mmol/L (5-15) L Blood Urea Nitrogen 11 mg/dL (7-18) Creatinine 0.6 MG/DL (0.55-1.30) Estimat Glomerular Filtration Rate > 60 mL/min (>60) Glucose Level 152 MG/DL (74-106) H Calcium Level 8.4 MG/DL (8.5-10.1) L Phosphorus Level 2.8 MG/DL (2.5-4.9) Magnesium Level 1.8 MG/DL (1.8-2.4) Total Bilirubin 0.5 MG/DL (0.2-1.0) Aspartate Amino Transf (AST/SGOT) 41 U/L (15-37) H Alanine Aminotransferase (ALT/SGPT) 52 U/L (12-78) Alkaline Phosphatase 56 U/L (46-116) Total Protein 6.0 G/DL (6.4-8.2) L Albumin 2.8 G/DL (3.4-5.0) L Globulin 3.2 g/dL Albumin/Globulin Ratio 0.9 (1.0-2.7) L Microbiology Date/Time Source Procedure Growth Status 08/16/20 17:33 Femoral Right Catheter Tip Culture - Preliminary NO GROWTH AFTER 48 HOURS Resulted Intake and Output 08/17/20 08/18/20 19:00 07:00 Intake Total 900 ml 860 ml Output Total 3600 ml 900 ml Balance -2700 ml -40 ml IV Total 900 ml 860 ml Output Urine Total 3600 ml 900 ml # Bowel Movements 3 Objective PHYSICAL EXAMINATION: GENERAL: The patient is well-developed, well-nourished male, in moderate respiratory distress. HEENT: Eyes, pupils are equal and responsive to light and accommodation. Extraocular movements are intact. NECK: Supple. No lymphadenopathy. CHEST: nasal canula; Lungs are clear to auscultation bilaterally without wheezes or rales. CARDIOVASCULAR: Regular rhythm and rate. S1-S2 are normal without murmurs, rubs, or gallops. ABDOMEN: Soft, nontender, and nondistended. Positive bowel sounds. No evidence of hepatosplenomegaly. Currently, no rebound or guarding noted. EXTREMITIES: Negative for clubbing, cyanosis, or edema. RECTAL/GENITAL: Not performed. NEUROLOGIC: Cranial nerves II through XII are grossly intact without focal deficits. Motor strength is 5/5 bilaterally. Deep tendon reflexes are 2+ plantar. Assessment/Plan Assessment/Plan ASSESSMENT: This is an 79-year-old male with. 1. Respiratory failure-intubated 08/05/20; extubated 08/14/20 2. Right-sided pneumonia. 3. Hypertension. 4. Congestive heart failure. 5. Chronic obstructive pulmonary disease. 6. Anemia. 7. Cerebrovascular disease, status post cerebrovascular accident. 8. Peripheral vascular disease. 9. Gastroesophageal reflux disease. 10. Major depression. 11. Seizure disorder. 12. History of COVID-19 positive in February 2020. 13. Benign prostatic hypertrophy. 14. Hypokalemia TREATMENT: 1. Respiratory failure/right-sided pneumonia pulmonary consultation= Dr. Micha Schneider. ABX= vancomycin and flagyl; S/P cefepime. Infectious Disease= Dr. Urrutia. Follow recommendations of Infectious Disease and Pulmonary. 2. Hypertension. The patient is currently hypotensive. 3. Congestive heart failure. 4. Chronic obstructive pulmonary disease. Continue DuoNeb as above. 5. Anemia. 6. Cerebrovascular disease. 7. Peripheral vascular disease. 8. Gastroesophageal reflux disease. Continue famotidine as above. 9. Major depression. Seizure disorder. 10. COVID-19 positive, history in February 2020. 11. Benign prostatic hypertrophy. Continue Flomax as above. 12. Oral potassium supp Pablo Hickman MD Aug 18, 2020 17:04
--- NOTE | 2020-08-18 19:15 | NUR ---
NURSE NOTES: Pt report received from Leno LEMON. pt condition remains unchanged. pt is alert and oriented times 2, able to respond yes or no to simple questions. pt is on bipap, sating 93% O2, no further acute resp distress noted. pt is on cardiac/vascular sonographer, showing NSR, no acute cardiac distress. pt bed is low, locked, armed, call light within reach, bed rails up times 3. will follow plan of care.
--- NOTE | 2020-08-18 19:20 | NUR ---
NURSE HAND-OFF REPORT: Important Events on Shift: hypokalemia with K+ 3.2 Patient Status: stable Diet: NPO Pending Orders: CXR Pending Results/Labs:N/A Pending MD notification:N/A Latest Vital Signs: Temperature 98.1 , Pulse 85 , B/P 107 /68 , Respiratory Rate 31 , O2 SAT 100 , Venturi Mask, O2 Flow Rate 2.0 . Vital Sign Comment: stable EKG Rhythm: Sinus Rhythm Rhythm change?: N MD Notified?: - MD Response: Latest Castro Fall Score: 70 Fall Risk: High Risk Safety Measures: Call light Within Reach, Bed Alarm Zone 1, Side Rails Side Rails x3, Bed position Low and Locked. Fall Precautions: y Yellow Socks Yellow Gown Door Sign Patient Fall Education Report given to ION Lopez.
[2020-08-18 20:00] VITALS: BP 85/64
[2020-08-18] MEDS: Miralax 17gm pkt ORAL SCH (20:48)
[2020-08-18] MEDS: Dyna-Hex 2% Top Sol 2oz TOPIC SCH (20:54)
[2020-08-19] VITALS: BP 130/85
[2020-08-19] MEDS: Acetylcysteine 20% Soln 4ml HHN SCH ×4 (01:22→19:34)
[2020-08-19] MEDS: Albuterol/Ipratropium 3ml neb HHN SCH ×4 (01:22→19:34)
[2020-08-19 04:00] VITALS: BP 156/81
[2020-08-19] MEDS: Gabapentin 300 MG/6 ML Soln NG SCH ×3 (05:03→21:37)
[2020-08-19 05:06] LABS: HEMATOCRIT 30.5 % (42.0-52.0); HEMOGLOBIN 9.1 G/DL (14.2-18.0); MEAN CORPUSCULAR VOLUME 89 FL (80-99); PLATELET COUNT 218 K/UL (150-450); RED BLOOD COUNT 3.41 M/UL (4.70-6.10); RED CELL DISTRIBUTION WIDTH 14.8 % (11.6-14.8); WHITE BLOOD COUNT 9.5 K/UL (4.8-10.8)
[2020-08-19] MEDS: Solu-MEDROL 40mg Inj IVP SCH ×3 (05:06→17:41)
[2020-08-19 05:38] LABS: ALANINE AMINOTRANSFERASE 45 U/L (12-78); ALBUMIN 2.8 G/DL (3.4-5.0); ALBUMIN/GLOBULIN RATIO 0.9 (1.0-2.7); ALKALINE PHOSPHATASE 48 U/L (46-116); ANION GAP 3 mmol/L (5-15); ASPARTATE AMINO TRANSFERASE 28 U/L (15-37); BILIRUBIN,TOTAL 0.5 MG/DL (0.2-1.0); BLOOD UREA NITROGEN 11 mg/dL (7-18); CALCIUM 8.7 MG/DL (8.5-10.1); CARBON DIOXIDE 36 MMOL/L (21-32); CHLORIDE 100 MMOL/L (98-107); CREATININE 0.6 MG/DL (0.55-1.30); PHOSPHORUS 2.1 MG/DL (2.5-4.9); SODIUM 139 MMOL/L (136-145)
--- NOTE | 2020-08-19 07:36 | NUR ---
NURSE HAND-OFF REPORT: Important Events on Shift:[NA] Patient Status: [unchanged] Diet: [per doctor order] Pending Orders: [NA] Pending Results/Labs:[NA] Pending MD notification:[NA] Latest Vital Signs: Temperature 98.9 , Pulse 96 , B/P 156 /81 , Respiratory Rate 20 , O2 SAT 96 , Venturi Mask, O2 Flow Rate 2.0 . Vital Sign Comment: [stable, monitor O2] EKG Rhythm: Sinus Rhythm Rhythm change?: N MD Notified?: - MD Response: Latest Castro Fall Score: 70 Fall Risk: High Risk Safety Measures: Call light Within Reach, Bed Alarm Zone 1, Side Rails Side Rails x3, Bed position Low and Locked. Fall Precautions: Yellow Socks Yellow Gown Door Sign Patient Fall Education Report given to [Martina Hercules RN].
[2020-08-19 08:00] VITALS: BP 123/83
[2020-08-19] MEDS: Docusate 100mg/10ml Liq NG SCH ×2 (09:00→20:36)
[2020-08-19] MEDS: Enoxaparin 60mg Inj SUBQ SCH ×2 (09:22→20:38)
[2020-08-19] MEDS ORDERED: Sodium Phosphate 15 MM in NS 275 ML IVPB ONE (10:00)
--- NOTE | 2020-08-19 10:00 | NUR ---
BIPAP FIO2 to 60% changed by RT Cody Per Dr. Schneider O2 saturation 96-97 1100 O2 saturation 89-91 respiration 38,RT-Lulu changed FIO2 to 80 % saturation 95-98 %,asleep breathing easy
--- NOTE | 2020-08-19 10:57 | Pulmonology Progress Note ---
Subjective ROS Limited/Unobtainable: Yes Interval Events: Intubated 08/05/20; extubated 08/14/20; now on BiPAP Constitutional: Denies: fever HEENT: Repors: no symptoms Respiratory: Reports: shortness of breath Cardiovascular: Reports: no symptoms Gastrointestinal/Abdominal: Denies: nausea, vomiting, diarrhea Genitourinary: Reports: no symptoms Neurologic: Reports: no symptoms Psychiatric: Reports: other - NA Skin: Denies: rash Musculoskeletal: Denies: pain Allergies: Coded Allergies: PENICILLINS (Verified Allergy, Unknown, 03/10/20) PHENYTOIN (Verified Allergy, Unknown, 03/10/20) Objective Last 24 Hour Vital Signs Date Time Temp Pulse Resp B/P (MAP) Pulse Ox O2 Delivery O2 Flow Rate FiO2 08/19/20 04:15 80 08/19/20 04:00 Bi-pap 08/19/20 04:00 98.9 96 20 156/81 (106) 96 08/19/20 04:00 96 08/19/20 03:15 70 08/19/20 03:13 98 39 95 60 08/19/20 01:21 94 32 100 Bi-Pap 60 97 34 100 60 08/19/20 00:00 98.0 92 22 130/85 (100) 96 08/19/20 00:00 Bi-pap 08/19/20 00:00 80 08/18/20 23:11 60 08/18/20 23:10 95 21 100 70 08/18/20 20:00 88 08/18/20 20:00 Bi-pap 08/18/20 20:00 80 08/18/20 20:00 97.6 90 24 85/64 (71) 99 08/18/20 19:09 70 08/18/20 19:06 100 Bi-Pap 80 08/18/20 19:06 85 31 100 Bi-Pap 80 88 34 100 80 08/18/20 16:14 80 08/18/20 16:00 Bi-pap 08/18/20 16:00 96 08/18/20 16:00 98.1 92 24 107/68 (81) 100 08/18/20 15:10 98 44 94 80 08/18/20 12:00 101 08/18/20 12:00 96.8 91 27 108/68 (81) 98 08/18/20 12:00 100 44 97 80 08/18/20 12:00 80 08/18/20 12:00 Bi-pap 08/18/20 12:00 101 45 96 Bi-Pap 80 100 44 97 Intake and Output 08/18/20 08/19/20 19:00 07:00 Intake Total 1222.5 ml 550 ml Output Total 1350 ml 1400 ml Balance -127.5 ml -850 ml IV Total 1222.5 ml 550 ml Output Urine Total 1350 ml 1400 ml # Bowel Movements 2 General Appearance: no acute distress HEENT: normocephalic Respiratory: chest wall non-tender, lungs clear Cardiovascular: normal peripheral pulses, normal rate Abdomen: normal bowel sounds Extremities: no cyanosis Microbiology Date/Time Source Procedure Growth Status 08/16/20 17:33 Femoral Right Catheter Tip Culture - Preliminary NO GROWTH AFTER 72 HOURS Resulted Laboratory Tests 08/19/20 03:11: White Blood Count 9.5, Red Blood Count 3.41L, Hemoglobin 9.1L, Hematocrit 30.5L, Mean Corpuscular Volume 89, Mean Corpuscular Hemoglobin 26.6L, Mean Corpuscular Hemoglobin Concent 29.8L, Red Cell Distribution Width 14.8, Platelet Count 218, Mean Platelet Volume 5.6L, Neutrophils (%) (Auto) , Lymphocytes (%) (Auto) , Monocytes (%) (Auto) , Eosinophils (%) (Auto) , Basophils (%) (Auto) , Differential Total Cells Counted 100, Neutrophils % (Manual) 85H, Lymphocytes % (Manual) 5L, Monocytes % (Manual) 7, Eosinophils % (Manual) 0, Basophils % (Manual) 0, Band Neutrophils 3, Platelet Estimate Adequate, Platelet Morphology Normal, Red Blood Cell Morphology Normal, Sodium Level 139, Potassium Level 4.0, Chloride Level 100, Carbon Dioxide Level 36H, Anion Gap 3L, Blood Urea Nitrogen 11, Creatinine 0.6, Estimat Glomerular Filtration Rate > 60, Glucose Level 150H, Calcium Level 8.7, Phosphorus Level 2.1L, Magnesium Level 2.0, Total Bilirubin 0.5, Aspartate Amino Transf (AST/SGOT) 28, Alanine Aminotransferase (ALT/SGPT) 45, Alkaline Phosphatase 48, C-Reactive Protein, Quantitative 6.0H, Total Protein 5.9L, Albumin 2.8L, Globulin 3.1, Albumin/Globulin Ratio 0.9L Current Medications Medications (Trade) Dose Ordered Sig/Armand Route PRN Reason Start Time Stop Time Status Last Admin Dose Admin Acetaminophen (Tylenol) 650 mg Q6H PRN NG Mild Pain (Pain Scale 1-3) 08/08/20 14:00 09/07/20 13:59 08/13/20 17:02 Acetaminophen (Tylenol) 650 mg Q6H PRN NG Temp >100.5 08/08/20 14:00 09/07/20 13:59 Acetylcysteine (Mucomyst) 200 mg Q6HRT HHN 08/18/20 10:30 11/16/20 10:29 08/19/20 07:55 Albuterol/ Ipratropium (Albuterol/ Ipratropium) 3 ml Q4H PRN HHN Shortness of Breath 08/17/20 18:30 08/22/20 18:29 08/17/20 18:46 Albuterol/ Ipratropium (Albuterol/ Ipratropium) 3 ml Q6HRT HHN 08/18/20 10:30 08/23/20 10:29 08/19/20 07:55 Chlorhexidine Gluconate (Maddie-Hex 2%) 1 applic DAILY@2000 TOPIC 08/07/20 20:00 11/05/20 19:59 08/18/20 20:54 Dextrose/ Electrolytes 1,000 ml @ 50 mls/hr Q20H IV 08/18/20 15:00 09/17/20 14:59 08/18/20 15:15 Docusate Sodium (Colace) 100 mg EVERY 12 HOURS NG 08/13/20 21:00 09/11/20 17:59 08/16/20 21:12 Enoxaparin Sodium (Lovenox) 60 mg EVERY 12 HOURS SUBQ 08/05/20 21:00 11/03/20 20:59 08/19/20 09:22 Famotidine (Pepcid I.v.) 20 mg Q12HR IVP 08/06/20 11:00 09/05/20 10:59 08/19/20 09:21 Gabapentin (Neurontin) 300 mg EVERY 8 HOURS NG 08/08/20 22:00 09/04/20 08:59 08/17/20 14:36 Methylprednisolone Sodium Succinate (Solu-MEDROL) 40 mg Q6HR IVP 08/18/20 12:00 11/15/20 11:59 08/19/20 05:06 Polyethylene Glycol (Miralax) 17 gm BEDTIME ORAL 08/12/20 21:00 09/11/20 20:59 08/16/20 21:12 Sodium Phosphate 15 mm/Sodium Chloride 280 ml @ 70.273 mls/ hr ONCE ONCE IVPB 08/19/20 10:00 08/19/20 13:59 08/19/20 09:34 Assessment/Plan Assessment/Plan 1. UTI -s/p empiric antibiotics -Follow-up UCx negative (08/03) 2. Pneumonia -s/p broad-spectrum antibiotics - CXR concerning for volume loss; latest CXR shows RUL atelectasis - CT chest shows dense RUL and RML consolidation - High suspicion for RBI narrowing ; no obvious endobronchial narrowing noted on bronchoscopy - CXR (08/18) New/increased right upper lobe infiltrate and atelectasis 3. COPD exacerbation -Now extubated 4. Respiratory distress - now on BPAP 30/01, 80% ->75% FiO2 saturating at 97% -> will continue weaning - continue steroids - added HHN with mucomyst and duonebs - intensified pulm hygiene with VEST and CPT 5. History of seizures -Risk of aspiration -Monitor for seizure activity 6. Elevated CRP -D-dimer wnl -His outpatient medications include Eliquis (hx of A fib?) - Continue Eliquis The care for this patient was discussed with my supervising physician Time spent for this case was approximately 31 minutes Edwin Beckham Aug 19, 2020 10:57
--- NOTE | 2020-08-19 11:01 | Nephrology Progress Note ---
Assessment/Plan Problem List: (1) Oliguria (2) Electrolyte imbalance (3) Pneumonia (4) Respiratory failure with hypoxia (5) Pneumonia due to COVID-19 virus (6) Seizure disorder (7) Anemia Assessment Sepsis, respiratory failure Pneumonia and possible aspiration. Questionable COVID-19 infection UTI Abnormal electrolytes Questionable CHF Anemia Plan August 19: Patient on BiPAP. Labs reviewed. Abnormal electrolytes addressed. Patient full code. Continue to monitor ABG and renal parameters. Continue per consultants. August 18: Patient's clinical condition deteriorated. Back on BiPAP. Mental status down. Cannot take p.o. Will give potassium IV. Patient remains full code. Continue per learning technologist. Hypotonic IV fluid changed to isotonic August 17: Continues to tolerate extubation. Not in any distress and verbal. Labs reviewed. Low potassium addressed. Patient full code. Medication list reviewed. Continue per consultants. August 16: Post extubation. Tolerating well. Labs reviewed. Low potassium addressed. Continue per consultants. Stable from renal standpoint of view. Full code. August 15: Patient extubated on oxygen with cannula. Variable asking for coffee. Renal parameters stable. Continue per consultants. August 14: Status unchanged. Remains full code, intubated, on ventilator, FiO2 of 40%. Labs reviewed. Renal parameters stable. Hemoglobin lower. Suggest transfusion. August 13: Status quo. Remains full code, intubated, on FiO2 of 40%. Labs reviewed. Renal parameters stable. Continue per consultants. August 12: Intubated on ventilator. FiO2 40% unchanged. Full code. Labs reviewed. Renal parameters stable. Continue per consultants. August 11: Intubated on ventilator. O2 40%. Full code. Medication list reviewed. Labs reviewed. Stable from renal standpoint of view. Continue per consultants. August 10: Status quo. Intubated on ventilator. FiO2 remains 40%. Renal parameters stable. Continue per current management. Potassium and phosphorus supplement given August 09: Full code. Intubated on ventilator. FiO2 40%. Labs reviewed. Stable from renal standpoint of view. August 08: Labs reviewed. Renal parameters stable. Abnormal electrolytes addressed. Remains full code. FiO2 50%. Continue per consultants. Discussed with RN. August 07: Labs reviewed. K Phos IV given. Patient intubated. Full code. FiO2 60%. Medication list reviewed. Continue per consultants. Previously: Optimize pulmonary status Optimize cardiac status Monitor renal parameters, urine output, electrolytes Change IV to half-normal saline Anemia mansfield Insert NG tube and start feeding Per orders Subjective ROS Limited/Unobtainable: Yes Objective Objective Last 24 Hour Vital Signs Date Time Temp Pulse Resp B/P (MAP) Pulse Ox O2 Delivery O2 Flow Rate FiO2 08/19/20 04:15 80 08/19/20 04:00 Bi-pap 08/19/20 04:00 98.9 96 20 156/81 (106) 96 08/19/20 04:00 96 08/19/20 03:15 70 08/19/20 03:13 98 39 95 60 08/19/20 01:21 94 32 100 Bi-Pap 60 97 34 100 60 08/19/20 00:00 98.0 92 22 130/85 (100) 96 08/19/20 00:00 Bi-pap 08/19/20 00:00 80 08/18/20 23:11 60 08/18/20 23:10 95 21 100 70 08/18/20 20:00 88 08/18/20 20:00 Bi-pap 08/18/20 20:00 80 08/18/20 20:00 97.6 90 24 85/64 (71) 99 08/18/20 19:09 70 08/18/20 19:06 100 Bi-Pap 80 08/18/20 19:06 85 31 100 Bi-Pap 80 88 34 100 80 08/18/20 16:14 80 08/18/20 16:00 Bi-pap 08/18/20 16:00 96 08/18/20 16:00 98.1 92 24 107/68 (81) 100 08/18/20 15:10 98 44 94 80 08/18/20 12:00 101 08/18/20 12:00 96.8 91 27 108/68 (81) 98 08/18/20 12:00 100 44 97 80 08/18/20 12:00 80 08/18/20 12:00 Bi-pap 08/18/20 12:00 101 45 96 Bi-Pap 80 100 44 97 Current Medications Medications (Trade) Dose Ordered Sig/Armand Route PRN Reason Start Time Stop Time Status Last Admin Dose Admin Acetaminophen (Tylenol) 650 mg Q6H PRN NG Mild Pain (Pain Scale 1-3) 08/08/20 14:00 09/07/20 13:59 08/13/20 17:02 Acetaminophen (Tylenol) 650 mg Q6H PRN NG Temp >100.5 08/08/20 14:00 09/07/20 13:59 Acetylcysteine (Mucomyst) 200 mg Q6HRT HHN 08/18/20 10:30 11/16/20 10:29 08/19/20 07:55 Albuterol/ Ipratropium (Albuterol/ Ipratropium) 3 ml Q4H PRN HHN Shortness of Breath 08/17/20 18:30 08/22/20 18:29 08/17/20 18:46 Albuterol/ Ipratropium (Albuterol/ Ipratropium) 3 ml Q6HRT HHN 08/18/20 10:30 08/23/20 10:29 08/19/20 07:55 Chlorhexidine Gluconate (Maddie-Hex 2%) 1 applic DAILY@2000 TOPIC 08/07/20 20:00 11/05/20 19:59 08/18/20 20:54 Dextrose/ Electrolytes 1,000 ml @ 50 mls/hr Q20H IV 08/18/20 15:00 09/17/20 14:59 08/18/20 15:15 Docusate Sodium (Colace) 100 mg EVERY 12 HOURS NG 08/13/20 21:00 09/11/20 17:59 08/16/20 21:12 Enoxaparin Sodium (Lovenox) 60 mg EVERY 12 HOURS SUBQ 08/05/20 21:00 11/03/20 20:59 08/19/20 09:22 Famotidine (Pepcid I.v.) 20 mg Q12HR IVP 08/06/20 11:00 09/05/20 10:59 08/19/20 09:21 Gabapentin (Neurontin) 300 mg EVERY 8 HOURS NG 08/08/20 22:00 09/04/20 08:59 08/17/20 14:36 Methylprednisolone Sodium Succinate (Solu-MEDROL) 40 mg Q6HR IVP 08/18/20 12:00 11/15/20 11:59 08/19/20 05:06 Polyethylene Glycol (Miralax) 17 gm BEDTIME ORAL 08/12/20 21:00 09/11/20 20:59 08/16/20 21:12 Sodium Phosphate 15 mm/Sodium Chloride 280 ml @ 70.273 mls/ hr ONCE ONCE IVPB 08/19/20 10:00 08/19/20 13:59 08/19/20 09:34 Laboratory Tests Test 08/19/20 03:11 White Blood Count 9.5 K/UL (4.8-10.8) Red Blood Count 3.41 M/UL (4.70-6.10) L Hemoglobin 9.1 G/DL (14.2-18.0) L Hematocrit 30.5 % (42.0-52.0) L Mean Corpuscular Volume 89 FL (80-99) Mean Corpuscular Hemoglobin 26.6 PG (27.0-31.0) L Mean Corpuscular Hemoglobin Concent 29.8 G/DL (32.0-36.0) L Red Cell Distribution Width 14.8 % (11.6-14.8) Platelet Count 218 K/UL (150-450) Mean Platelet Volume 5.6 FL (6.5-10.1) L Neutrophils (%) (Auto) % (45.0-75.0) Lymphocytes (%) (Auto) % (20.0-45.0) Monocytes (%) (Auto) % (1.0-10.0) Eosinophils (%) (Auto) % (0.0-3.0) Basophils (%) (Auto) % (0.0-2.0) Differential Total Cells Counted 100 Neutrophils % (Manual) 85 % (45-75) H Lymphocytes % (Manual) 5 % (20-45) L Monocytes % (Manual) 7 % (1-10) Eosinophils % (Manual) 0 % (0-3) Basophils % (Manual) 0 % (0-2) Band Neutrophils 3 % (0-8) Platelet Estimate Adequate Platelet Morphology Normal Red Blood Cell Morphology Normal Sodium Level 139 MMOL/L (136-145) Potassium Level 4.0 MMOL/L (3.5-5.1) Chloride Level 100 MMOL/L (98-107) Carbon Dioxide Level 36 MMOL/L (21-32) H Anion Gap 3 mmol/L (5-15) L Blood Urea Nitrogen 11 mg/dL (7-18) Creatinine 0.6 MG/DL (0.55-1.30) Estimat Glomerular Filtration Rate > 60 mL/min (>60) Glucose Level 150 MG/DL (74-106) H Calcium Level 8.7 MG/DL (8.5-10.1) Phosphorus Level 2.1 MG/DL (2.5-4.9) L Magnesium Level 2.0 MG/DL (1.8-2.4) Total Bilirubin 0.5 MG/DL (0.2-1.0) Aspartate Amino Transf (AST/SGOT) 28 U/L (15-37) Alanine Aminotransferase (ALT/SGPT) 45 U/L (12-78) Alkaline Phosphatase 48 U/L (46-116) C-Reactive Protein, Quantitative 6.0 mg/dL (0.00-0.90) H Total Protein 5.9 G/DL (6.4-8.2) L Albumin 2.8 G/DL (3.4-5.0) L Globulin 3.1 g/dL Albumin/Globulin Ratio 0.9 (1.0-2.7) L Intake and Output 08/18/20 08/19/20 19:00 07:00 Intake Total 1222.5 ml 550 ml Output Total 1350 ml 1400 ml Balance -127.5 ml -850 ml IV Total 1222.5 ml 550 ml Output Urine Total 1350 ml 1400 ml # Bowel Movements 2 Laboratory Tests 08/19/20 03:11: White Blood Count 9.5, Red Blood Count 3.41L, Hemoglobin 9.1L, Hematocrit 30.5L, Mean Corpuscular Volume 89, Mean Corpuscular Hemoglobin 26.6L, Mean Corpuscular Hemoglobin Concent 29.8L, Red Cell Distribution Width 14.8, Platelet Count 218, Mean Platelet Volume 5.6L, Neutrophils (%) (Auto) , Lymphocytes (%) (Auto) , M onocytes (%) (Auto) , Eosinophils (%) (Auto) , Basophils (%) (Auto) , Differential Total Cells Counted 100, Neutrophils % (Manual) 85H, Lymphocytes % (Manual) 5L, Monocytes % (Manual) 7, Eosinophils % (Manual) 0, Basophils % (Manual) 0, Band Neutrophils 3, Platelet Estimate Adequate, Platelet Morphology Normal, Red Blood Cell Morphology Normal, Sodium Level 139, Potassium Level 4.0, Chloride Level 100, Carbon Dioxide Level 36H, Anion Gap 3L, Blood Urea Nitrogen 11, Creatinine 0.6, Estimat Glomerular Filtration Rate > 60, Glucose Level 150H, Calcium Level 8.7, Phosphorus Level 2.1L, Magnesium Level 2.0, Total Bilirubin 0.5, Aspartate Amino Transf (AST/SGOT) 28, Alanine Aminotransferase (ALT/SGPT) 45, Alkaline Phosphatase 48, C-Reactive Protein, Quantitative 6.0H, Total Protein 5.9L, Albumin 2.8L, Globulin 3.1, Albumin/Globulin Ratio 0.9L Height (Feet): 6 Height (Inches): 1.00 Weight (Pounds): 190 General Appearance: mild distress EENT: other - On BiPAP Cardiovascular: tachycardia Respiratory/Chest: decreased breath sounds Abdomen: distended Aashish Burgess MD Aug 19, 2020 11:01
[2020-08-19 12:00] VITALS: BP 132/91
--- NOTE | 2020-08-19 12:47 | NUR ---
NURSE NOTES: with right upper arm PICC dressing dry intact,red port sluggish to flush,no blood return
--- NOTE | 2020-08-19 13:28 | Surgery Progress Note ---
Surgery Progress Note Subjective Additional Comments wbc resolved h/h stable no n/v respiratory okay Objective Last 24 Hour Vital Signs Date Time Temp Pulse Resp B/P (MAP) Pulse Ox O2 Delivery O2 Flow Rate FiO2 08/19/20 12:03 Bi-pap 08/19/20 12:00 80 08/19/20 12:00 97.7 95 28 132/91 (105) 95 08/19/20 11:46 97 08/19/20 11:00 80 08/19/20 10:00 60 08/19/20 09:35 60 08/19/20 08:30 Bi-pap 08/19/20 08:10 97 44 96 Bi-Pap 70 98 42 97 70 08/19/20 08:10 96 Bi-Pap 70 08/19/20 08:00 98.1 94 18 123/83 (96) 95 08/19/20 08:00 80 08/19/20 07:41 94 08/19/20 04:15 80 08/19/20 04:00 Bi-pap 08/19/20 04:00 98.9 96 20 156/81 (106) 96 08/19/20 04:00 96 08/19/20 03:15 70 08/19/20 03:13 98 39 95 60 08/19/20 01:21 94 32 100 Bi-Pap 60 97 34 100 60 08/19/20 00:00 98.0 92 22 130/85 (100) 96 08/19/20 00:00 Bi-pap 08/19/20 00:00 80 08/18/20 23:11 60 08/18/20 23:10 95 21 100 70 08/18/20 20:00 88 08/18/20 20:00 Bi-pap 08/18/20 20:00 80 08/18/20 20:00 97.6 90 24 85/64 (71) 99 08/18/20 19:09 70 08/18/20 19:06 100 Bi-Pap 80 08/18/20 19:06 85 31 100 Bi-Pap 80 88 34 100 80 08/18/20 16:14 80 08/18/20 16:00 Bi-pap 08/18/20 16:00 96 08/18/20 16:00 98.1 92 24 107/68 (81) 100 08/18/20 15:10 98 44 94 80 I&O Intake and Output 08/18/20 08/19/20 19:00 07:00 Intake Total 1222.5 ml 550 ml Output Total 1350 ml 1400 ml Balance -127.5 ml -850 ml IV Total 1222.5 ml 550 ml Output Urine Total 1350 ml 1400 ml # Bowel Movements 2 Dressing: saturated Cardiovascular: RSR Respiratory: decreased breath sounds Abdomen: soft, non-tender, present bowel sounds, non-distended Extremities: no tenderness, no cyanosis Laboratory Tests Test 08/19/20 03:11 White Blood Count 9.5 K/UL (4.8-10.8) Red Blood Count 3.41 M/UL (4.70-6.10) L Hemoglobin 9.1 G/DL (14.2-18.0) L Hematocrit 30.5 % (42.0-52.0) L Mean Corpuscular Volume 89 FL (80-99) Mean Corpuscular Hemoglobin 26.6 PG (27.0-31.0) L Mean Corpuscular Hemoglobin Concent 29.8 G/DL (32.0-36.0) L Red Cell Distribution Width 14.8 % (11.6-14.8) Platelet Count 218 K/UL (150-450) Mean Platelet Volume 5.6 FL (6.5-10.1) L Neutrophils (%) (Auto) % (45.0-75.0) Lymphocytes (%) (Auto) % (20.0-45.0) Monocytes (%) (Auto) % (1.0-10.0) Eosinophils (%) (Auto) % (0.0-3.0) Basophils (%) (Auto) % (0.0-2.0) Differential Total Cells Counted 100 Neutrophils % (Manual) 85 % (45-75) H Lymphocytes % (Manual) 5 % (20-45) L Monocytes % (Manual) 7 % (1-10) Eosinophils % (Manual) 0 % (0-3) Basophils % (Manual) 0 % (0-2) Band Neutrophils 3 % (0-8) Platelet Estimate Adequate Platelet Morphology Normal Red Blood Cell Morphology Normal Sodium Level 139 MMOL/L (136-145) Potassium Level 4.0 MMOL/L (3.5-5.1) Chloride Level 100 MMOL/L (98-107) Carbon Dioxide Level 36 MMOL/L (21-32) H Anion Gap 3 mmol/L (5-15) L Blood Urea Nitrogen 11 mg/dL (7-18) Creatinine 0.6 MG/DL (0.55-1.30) Estimat Glomerular Filtration Rate > 60 mL/min (>60) Glucose Level 150 MG/DL (74-106) H Calcium Level 8.7 MG/DL (8.5-10.1) Phosphorus Level 2.1 MG/DL (2.5-4.9) L Magnesium Level 2.0 MG/DL (1.8-2.4) Total Bilirubin 0.5 MG/DL (0.2-1.0) Aspartate Amino Transf (AST/SGOT) 28 U/L (15-37) Alanine Aminotransferase (ALT/SGPT) 45 U/L (12-78) Alkaline Phosphatase 48 U/L (46-116) C-Reactive Protein, Quantitative 6.0 mg/dL (0.00-0.90) H Total Protein 5.9 G/DL (6.4-8.2) L Albumin 2.8 G/DL (3.4-5.0) L Globulin 3.1 g/dL Albumin/Globulin Ratio 0.9 (1.0-2.7) L Plan Problems: (1) Abdominal distension Assessment & Plan: 79M abdominal distention, respiratory decline, altered mental status. on exam noted abd soft, mild distended, non tender. no n/v/f/c. unlikely aspiration. non tender one exam. pending urine and covid test. no acute surgical intervention. hold on ct. kub ordered. will follow with exam and recs. keep npo for now. iv fluids. respiratory pulm support. will follow with recs thank you decline since admission now intubated ng tube to suction no acute surgical intervention cont abx kub noted wean vent enema when stable improved tolerating diet cont diet no n/v labs okay The rectum is considerably distended with stool. Considerable stool is also seen in the descending colon. The colon is diffusely gas filled, upper limits of normal in caliber. No significant small bowel gas demonstrated. No masses or unusual calcifications. The included lung bases demonstrate bilateral right greater than left pleural effusions. There is a Butler catheter Impression: Distended stool-filled rectum, fecal impaction possible Gas-filled upper limits of normal caliber colon, nonspecific Bilateral right greater than left pleural effusions (2) UTI (urinary tract infection) (3) Pneumonia (4) Multiple pulmonary nodules (5) Respiratory failure with hypoxia Assessment & Plan: cont weaning (6) Pneumonia due to COVID-19 virus (7) History of CVA (cerebrovascular accident) (8) COPD (chronic obstructive pulmonary disease) (9) HTN (hypertension) (10) Hx of prostatic malignancy (11) Major depression (12) Seizure disorder Destin Brown Aug 19, 2020 13:28
--- NOTE | 2020-08-19 13:33 | Cardiac Electrophysiology PN ---
Assessment/Plan Assessment/Plan 1. Respiratory failure. On IV antibiotic. Extubated 08/14/20 Echo showed EF 50%. On BIPAP with 80% Fio2. May need reintubation. 2. Questionable congestive heart failure. EF normal and BNP is only 39. 3. S/P Septic shock, off Levo 4. History of COVID pneumonia, status post vaccination for COVID. Currently on IV antibiotic and prednisone. Now off isolation 5. DVT on Eliquis 2.5 mg b.i.d. Currently in SR 6. Full Code Subjective Subjective In SDU extubated 08/14/20 Off pressors on BIPAP with now 80% Fio2 May need to be reintubated. Objective Last 24 Hour Vital Signs Date Time Temp Pulse Resp B/P (MAP) Pulse Ox O2 Delivery O2 Flow Rate FiO2 08/19/20 12:03 Bi-pap 08/19/20 12:00 80 08/19/20 12:00 97.7 95 28 132/91 (105) 95 08/19/20 11:46 97 08/19/20 11:00 80 08/19/20 10:00 60 08/19/20 09:35 60 08/19/20 08:30 Bi-pap 08/19/20 08:10 97 44 96 Bi-Pap 70 98 42 97 70 08/19/20 08:10 96 Bi-Pap 70 08/19/20 08:00 98.1 94 18 123/83 (96) 95 08/19/20 08:00 80 08/19/20 07:41 94 08/19/20 04:15 80 08/19/20 04:00 Bi-pap 08/19/20 04:00 98.9 96 20 156/81 (106) 96 08/19/20 04:00 96 08/19/20 03:15 70 08/19/20 03:13 98 39 95 60 08/19/20 01:21 94 32 100 Bi-Pap 60 97 34 100 60 08/19/20 00:00 98.0 92 22 130/85 (100) 96 08/19/20 00:00 Bi-pap 08/19/20 00:00 80 08/18/20 23:11 60 08/18/20 23:10 95 21 100 70 08/18/20 20:00 88 08/18/20 20:00 Bi-pap 08/18/20 20:00 80 08/18/20 20:00 97.6 90 24 85/64 (71) 99 08/18/20 19:09 70 08/18/20 19:06 100 Bi-Pap 80 08/18/20 19:06 85 31 100 Bi-Pap 80 88 34 100 80 08/18/20 16:14 80 08/18/20 16:00 Bi-pap 08/18/20 16:00 96 08/18/20 16:00 98.1 92 24 107/68 (81) 100 08/18/20 15:10 98 44 94 80 Intake and Output 08/18/20 08/19/20 19:00 07:00 Intake Total 1222.5 ml 550 ml Output Total 1350 ml 1400 ml Balance -127.5 ml -850 ml IV Total 1222.5 ml 550 ml Output Urine Total 1350 ml 1400 ml # Bowel Movements 2 Laboratory Tests Test 08/19/20 03:11 White Blood Count 9.5 K/UL (4.8-10.8) Red Blood Count 3.41 M/UL (4.70-6.10) L Hemoglobin 9.1 G/DL (14.2-18.0) L Hematocrit 30.5 % (42.0-52.0) L Mean Corpuscular Volume 89 FL (80-99) Mean Corpuscular Hemoglobin 26.6 PG (27.0-31.0) L Mean Corpuscular Hemoglobin Concent 29.8 G/DL (32.0-36.0) L Red Cell Distribution Width 14.8 % (11.6-14.8) Platelet Count 218 K/UL (150-450) Mean Platelet Volume 5.6 FL (6.5-10.1) L Neutrophils (%) (Auto) % (45.0-75.0) Lymphocytes (%) (Auto) % (20.0-45.0) Monocytes (%) (Auto) % (1.0-10.0) Eosinophils (%) (Auto) % (0.0-3.0) Basophils (%) (Auto) % (0.0-2.0) Differential Total Cells Counted 100 Neutrophils % (Manual) 85 % (45-75) H Lymphocytes % (Manual) 5 % (20-45) L Monocytes % (Manual) 7 % (1-10) Eosinophils % (Manual) 0 % (0-3) Basophils % (Manual) 0 % (0-2) Band Neutrophils 3 % (0-8) Platelet Estimate Adequate Platelet Morphology Normal Red Blood Cell Morphology Normal Sodium Level 139 MMOL/L (136-145) Potassium Level 4.0 MMOL/L (3.5-5.1) Chloride Level 100 MMOL/L (98-107) Carbon Dioxide Level 36 MMOL/L (21-32) H Anion Gap 3 mmol/L (5-15) L Blood Urea Nitrogen 11 mg/dL (7-18) Creatinine 0.6 MG/DL (0.55-1.30) Estimat Glomerular Filtration Rate > 60 mL/min (>60) Glucose Level 150 MG/DL (74-106) H Calcium Level 8.7 MG/DL (8.5-10.1) Phosphorus Level 2.1 MG/DL (2.5-4.9) L Magnesium Level 2.0 MG/DL (1.8-2.4) Total Bilirubin 0.5 MG/DL (0.2-1.0) Aspartate Amino Transf (AST/SGOT) 28 U/L (15-37) Alanine Aminotransferase (ALT/SGPT) 45 U/L (12-78) Alkaline Phosphatase 48 U/L (46-116) C-Reactive Protein, Quantitative 6.0 mg/dL (0.00-0.90) H Total Protein 5.9 G/DL (6.4-8.2) L Albumin 2.8 G/DL (3.4-5.0) L Globulin 3.1 g/dL Albumin/Globulin Ratio 0.9 (1.0-2.7) L Microbiology Date/Time Source Procedure Growth Status 08/16/20 17:33 Femoral Right Catheter Tip Culture - Preliminary NO GROWTH AFTER 72 HOURS Resulted Objective HEAD AND NECK: No JVD on BIPAP LUNGS: Coarse rhonchi. CARDIOVASCULAR: Regular S1 and S2 with no gallop. ABDOMEN: Soft. EXTREMITIES: 1 plus pitting edema. Devyn Magdaleno MD Aug 19, 2020 13:33
[2020-08-19 16:00] VITALS: BP 132/91
--- NOTE | 2020-08-19 17:00 | NUR ---
NURSE NOTES: BIPAP sitting to 70% FIO2 changed by RT Cody O2 saturation 98-100 %
--- NOTE | 2020-08-19 17:20 | Infectious Diseases Prog Note ---
Assessment/Plan Assessment/Plan ASSESSMENT AND PLAN: 1. new infiltrate/atx on chest x-ray, ? 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 contaminant vs bacteremia mrsa colonization patient with picc line, femoral line removed covid-19 testing negative - will start vancomycin and meropenem, steroids started - f/u on labs and chest x-ray, sputum culture if possible - bipap, chest PT, breathing treatments, pulmonary f/u - d/w RN - off pressors - leukocytosis better, no fevers 2. covid-19 testing negative - isolation removed 3. Patient is on steroids for copd 4. aspiration precautions, pulmonary f/u 5. cou care 6. Blood pressure support. 7. Hypertension. 8. CHF. 9. COPD. 10. Prostate cancer. 11. Anemia. 12. CVA. 13. Aspiration risk. 14. Peripheral vascular disease. 15. GERD. 16. Seizures. 17. Depression. 18. History of COVID infection in February 2020. 19. Continue treatment per primary consultants. 20. Orders were noted and entered. 21. Skin care protocol. 22. Allergies to penicillin and phenytoin. 23. Social history is negative. 24. Family history is noncontributory. 25. MAR is noted. 26. Case was discussed with RN. Subjective Constitutional: Reports: other - more sob, on bipap, alert, no pressors ; Denies: fever HEENT: Reports: congestion Respiratory: Reports: shortness of breath Cardiovascular: Denies: chest pain Gastrointestinal/Abdominal: Denies: nausea, vomiting, diarrhea Genitourinary: Reports: other - + bee - no cva pain Neurologic: Reports: weakness, other - alert, responsive Psychiatric: Reports: other - NA Skin: Denies: rash Hematologic: Denies: bleeding Musculoskeletal: Reports: other - NA Allergies: Coded Allergies: PENICILLINS (Verified Allergy, Unknown, 03/10/20) PHENYTOIN (Verified Allergy, Unknown, 03/10/20) Objective Last 24 Hour Vital Signs Date Time Temp Pulse Resp B/P (MAP) Pulse Ox O2 Delivery O2 Flow Rate FiO2 08/19/20 16:00 Bi-pap 08/19/20 16:00 98 08/19/20 16:00 97.3 99 26 132/91 (105) 100 08/19/20 12:03 Bi-pap 08/19/20 12:00 80 08/19/20 12:00 97.7 95 28 132/91 (105) 95 08/19/20 11:46 97 08/19/20 11:00 80 08/19/20 10:30 100 33 96 80 08/19/20 10:00 60 08/19/20 09:35 60 08/19/20 08:30 Bi-pap 08/19/20 08:10 97 44 96 Bi-Pap 70 98 42 97 70 08/19/20 08:10 96 Bi-Pap 70 08/19/20 08:00 98.1 94 18 123/83 (96) 95 08/19/20 08:00 80 08/19/20 07:41 94 08/19/20 04:15 80 08/19/20 04:00 Bi-pap 08/19/20 04:00 98.9 96 20 156/81 (106) 96 08/19/20 04:00 96 08/19/20 03:15 70 08/19/20 03:13 98 39 95 60 08/19/20 01:21 94 32 100 Bi-Pap 60 97 34 100 60 08/19/20 00:00 98.0 92 22 130/85 (100) 96 08/19/20 00:00 Bi-pap 08/19/20 00:00 80 08/18/20 23:11 60 08/18/20 23:10 95 21 100 70 08/18/20 20:00 88 08/18/20 20:00 Bi-pap 08/18/20 20:00 80 08/18/20 20:00 97.6 90 24 85/64 (71) 99 08/18/20 19:09 70 08/18/20 19:06 100 Bi-Pap 80 08/18/20 19:06 85 31 100 Bi-Pap 80 88 34 100 80 Height (Feet): 6 Height (Inches): 1.00 Weight (Pounds): 190 General Appearance: other - + sob, on bipap HEENT: normocephalic, atraumatic, anicteric, mucous membranes moist Respiratory/Chest: accessory muscle use, crackles/rales, rhonchi - bilaterally, other - on bipap, sob Cardiovascular: normal rate, regular rhythm, no gallop/murmur, no JVD Abdomen: normal bowel sounds, soft, non tender, no organomegaly, non distended Genitourinary: other - + bee - urine clear Extremities: no cyanosis Skin: no rash Neurologic/Psychiatric: 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 Considerable right upper lobe atelectatic changes. COPD changes A few areas of atelectasis and possibly some consolidation is seen in the left lung Small right pleural fluid Evidence of old granulomatous disease 3 mm mm noncalcified nodule in the right middle lobe, not definitely evident previously. Recommend short interval 6 to 12 month follow-up CT scan Dilated right main pulmonary artery, indicative of pulmonary arterial hypertension Satisfactory endotracheal intubation Cholelithiasis Chest x-ray - 08/06/20 - Procedure: XRAY Chest 1v Indication: Abnormal chest sounds Technique: One view of the chest Comparison: 08/05/2020 Findings: Stable satisfactory the position of endotracheal tube. There is developing atelectasis in the right upper lung. There is persistent pleural fluid on the right and increasing parenchymal consolidation. Left lung pleural space remain clear. The heart size is normal Impression: Increasing right upper lobe atelectasis and right lung infiltrate. Unchanged right pleural effusion Chest x-ray - 08/09/20 Procedure: XRAY Chest 1v EXAM: XR Chest, 1 View CLINICAL HISTORY: INFECT TECHNIQUE: Frontal view of the chest. COMPARISON: Chest radiograph August 06, 2020. FINDINGS/IMPRESSION: Stable endotracheal tube. Opacity within the right lower lung field consistent with infiltrate, which is mild improving. Mild-moderate pleural effusion which is mildly worsening. No pneumothorax. The heart size is within normal limit. Calcified, tortuous aorta. Chest x-ray - 08/11/20 - IMPRESSION: No change in bibasilar infiltrate and small bilateral effusions. Endotracheal tube and NG tube remain in place. Chest x-ray - 08/13/20- Procedure: XRAY Chest 1v Procedure: XRAY Chest 1v Reason for study: Shortness of breath. Comparison films: 08/11/2020. FINDINGS: Endotracheal tube, NG tube and right PICC line imaging in place. Vascularity is normal. Basilar infiltrates and small effusions are unchanged. Cardiac and mediastinal silhouette are within normal limits. The bony thorax appear unremarkable. IMPRESSION: NO SIGNIFICANT CHANGE COMPARED TO PREVIOUS EXAM. Chest x-ray - 08/14/20 - Procedure: XRAY Chest 1v Procedure: XRAY Chest 1v Reason for study: Reason For Exam: SOB Comparison films: 08/13/2020. FINDINGS: Radiograph is underexposed. Endotracheal tube and NG tube remain in place . Bilateral infiltrates and small effusions unchanged. Cardiac and mediastinal silhouette are within normal limits. The bony thorax appear unremarkable. IMPRESSION: NO SIGNIFICANT CHANGE COMPARED TO PREVIOUS EXAM. Chest x-ray - 08/18/20 - Procedure: XRAY Chest 1v Indication: Cough Technique: One view of the chest Comparison: 08/17/2020 Findings: There is increasing atelectasis and consolidation of the right upper lobe. Infiltrates versus chronic changes of the mid and lower lungs are again demonstrated. Right arm PICC remains. Right midlung and left lung emphysematous changes are stable. Right-sided pleural effusion persists, unchanged. Impression: New/increased right upper lobe infiltrate and atelectasis Microbiology Date/Time Source Procedure Growth Status 08/16/20 17:33 Femoral Right Catheter Tip Culture - Preliminary NO GROWTH AFTER 72 HOURS Resulted 08/07/20 04:00 Sputum Gram Stain - Final Complete 08/07/20 04:00 Sputum Sputum Culture - Final NO GROWTH AFTER 48 HOURS Complete 08/06/20 03:20 Blood Blood Culture - Final NO GROWTH AFTER 5 DAYS Complete 08/03/20 19:41 Urine,Clean Catch Urine Culture - Final Mixed Gram Positive Organism Complete Microbiology Date/Time Source Procedure Growth Status 08/16/20 17:33 Femoral Right Catheter Tip Culture - Preliminary NO GROWTH AFTER 72 HOURS Resulted Laboratory Tests Test 08/19/20 03:11 White Blood Count 9.5 K/UL (4.8-10.8) Red Blood Count 3.41 M/UL (4.70-6.10) L Hemoglobin 9.1 G/DL (14.2-18.0) L Hematocrit 30.5 % (42.0-52.0) L Mean Corpuscular Volume 89 FL (80-99) Mean Corpuscular Hemoglobin 26.6 PG (27.0-31.0) L Mean Corpuscular Hemoglobin Concent 29.8 G/DL (32.0-36.0) L Red Cell Distribution Width 14.8 % (11.6-14.8) Platelet Count 218 K/UL (150-450) Mean Platelet Volume 5.6 FL (6.5-10.1) L Neutrophils (%) (Auto) % (45.0-75.0) Lymphocytes (%) (Auto) % (20.0-45.0) Monocytes (%) (Auto) % (1.0-10.0) Eosinophils (%) (Auto) % (0.0-3.0) Basophils (%) (Auto) % (0.0-2.0) Differential Total Cells Counted 100 Neutrophils % (Manual) 85 % (45-75) H Lymphocytes % (Manual) 5 % (20-45) L Monocytes % (Manual) 7 % (1-10) Eosinophils % (Manual) 0 % (0-3) Basophils % (Manual) 0 % (0-2) Band Neutrophils 3 % (0-8) Platelet Estimate Adequate Platelet Morphology Normal Red Blood Cell Morphology Normal Sodium Level 139 MMOL/L (136-145) Potassium Level 4.0 MMOL/L (3.5-5.1) Chloride Level 100 MMOL/L (98-107) Carbon Dioxide Level 36 MMOL/L (21-32) H Anion Gap 3 mmol/L (5-15) L Blood Urea Nitrogen 11 mg/dL (7-18) Creatinine 0.6 MG/DL (0.55-1.30) Estimat Glomerular Filtration Rate > 60 mL/min (>60) Glucose Level 150 MG/DL (74-106) H Calcium Level 8.7 MG/DL (8.5-10.1) Phosphorus Level 2.1 MG/DL (2.5-4.9) L Magnesium Level 2.0 MG/DL (1.8-2.4) Total Bilirubin 0.5 MG/DL (0.2-1.0) Aspartate Amino Transf (AST/SGOT) 28 U/L (15-37) Alanine Aminotransferase (ALT/SGPT) 45 U/L (12-78) Alkaline Phosphatase 48 U/L (46-116) C-Reactive Protein, Quantitative 6.0 mg/dL (0.00-0.90) H Total Protein 5.9 G/DL (6.4-8.2) L Albumin 2.8 G/DL (3.4-5.0) L Globulin 3.1 g/dL Albumin/Globulin Ratio 0.9 (1.0-2.7) L Current Medications Medications (Trade) Dose Ordered Sig/Armand Route PRN Reason Start Time Stop Time Status Last Admin Dose Admin Acetaminophen (Tylenol) 650 mg Q6H PRN NG Mild Pain (Pain Scale 1-3) 08/08/20 14:00 09/07/20 13:59 08/13/20 17:02 Acetaminophen (Tylenol) 650 mg Q6H PRN NG Temp >100.5 08/08/20 14:00 09/07/20 13:59 Acetylcysteine (Mucomyst) 200 mg Q6HRT HHN 08/18/20 10:30 11/16/20 10:29 08/19/20 13:55 Albuterol/ Ipratropium (Albuterol/ Ipratropium) 3 ml Q4H PRN HHN Shortness of Breath 08/17/20 18:30 08/22/20 18:29 08/17/20 18:46 Albuterol/ Ipratropium (Albuterol/ Ipratropium) 3 ml Q6HRT HHN 08/18/20 10:30 08/23/20 10:29 08/19/20 13:55 Chlorhexidine Gluconate (Maddie-Hex 2%) 1 applic DAILY@2000 TOPIC 08/07/20 20:00 11/05/20 19:59 08/18/20 20:54 Dextrose/ Electrolytes 1,000 ml @ 50 mls/hr Q20H IV 08/18/20 15:00 09/17/20 14:59 08/19/20 11:18 Docusate Sodium (Colace) 100 mg EVERY 12 HOURS NG 08/13/20 21:00 09/11/20 17:59 08/16/20 21:12 Enoxaparin Sodium (Lovenox) 60 mg EVERY 12 HOURS SUBQ 08/05/20 21:00 11/03/20 20:59 08/19/20 09:22 Famotidine (Pepcid I.v.) 20 mg Q12HR IVP 08/06/20 11:00 09/05/20 10:59 08/19/20 09:21 Gabapentin (Neurontin) 300 mg EVERY 8 HOURS NG 08/08/20 22:00 09/04/20 08:59 08/17/20 14:36 Meropenem 1 gm/ Sodium Chloride 100 ml @ 200 mls/hr Q8HR IVPB 08/19/20 22:00 08/24/20 21:59 Methylprednisolone Sodium Succinate (Solu-MEDROL) 40 mg Q6HR IVP 08/18/20 12:00 11/15/20 11:59 08/19/20 12:22 Polyethylene Glycol (Miralax) 17 gm BEDTIME ORAL 08/12/20 21:00 09/11/20 20:59 08/16/20 21:12 Vancomycin HCl 250 ml @ 166.667 mls/hr Q8HR@0400,1200,2000 IVPB 08/19/20 20:00 08/24/20 19:59 Vancomycin HCl (Vanco pharmacy to dose) 1 ea DAILY PRN MISC Per rx protocol 08/19/20 16:30 09/18/20 16:29 Kemar Nichole MD Aug 19, 2020 17:20
--- NOTE | 2020-08-19 18:24 | Internal Med Progress Note ---
Subjective Date of Service: Aug 19, 2020 Physician Name Pablo Hickman Attending Physician Torres Saul MD Current Medications Medications (Trade) Dose Ordered Sig/Armand Route PRN Reason Start Time Stop Time Status Last Admin Dose Admin Acetaminophen (Tylenol) 650 mg Q6H PRN NG Mild Pain (Pain Scale 1-3) 08/08/20 14:00 09/07/20 13:59 08/13/20 17:02 Acetaminophen (Tylenol) 650 mg Q6H PRN NG Temp >100.5 08/08/20 14:00 09/07/20 13:59 Acetylcysteine (Mucomyst) 200 mg Q6HRT HHN 08/18/20 10:30 11/16/20 10:29 08/19/20 13:55 Albuterol/ Ipratropium (Albuterol/ Ipratropium) 3 ml Q4H PRN HHN Shortness of Breath 08/17/20 18:30 08/22/20 18:29 08/17/20 18:46 Albuterol/ Ipratropium (Albuterol/ Ipratropium) 3 ml Q6HRT HHN 08/18/20 10:30 08/23/20 10:29 08/19/20 13:55 Chlorhexidine Gluconate (Maddie-Hex 2%) 1 applic DAILY@2000 TOPIC 08/07/20 20:00 11/05/20 19:59 08/18/20 20:54 Dextrose/ Electrolytes 1,000 ml @ 50 mls/hr Q20H IV 08/18/20 15:00 09/17/20 14:59 08/19/20 11:18 Docusate Sodium (Colace) 100 mg EVERY 12 HOURS NG 08/13/20 21:00 09/11/20 17:59 08/16/20 21:12 Enoxaparin Sodium (Lovenox) 60 mg EVERY 12 HOURS SUBQ 08/05/20 21:00 11/03/20 20:59 08/19/20 09:22 Famotidine (Pepcid I.v.) 20 mg Q12HR IVP 08/06/20 11:00 09/05/20 10:59 08/19/20 09:21 Gabapentin (Neurontin) 300 mg EVERY 8 HOURS NG 08/08/20 22:00 09/04/20 08:59 08/17/20 14:36 Meropenem 1 gm/ Sodium Chloride 100 ml @ 200 mls/hr Q8HR IVPB 08/19/20 22:00 08/24/20 21:59 Methylprednisolone Sodium Succinate (Solu-MEDROL) 40 mg Q6HR IVP 08/18/20 12:00 11/15/20 11:59 08/19/20 17:41 Polyethylene Glycol (Miralax) 17 gm BEDTIME ORAL 08/12/20 21:00 09/11/20 20:59 08/16/20 21:12 Vancomycin HCl 250 ml @ 166.667 mls/hr Q8HR@0400,1200,2000 IVPB 08/19/20 20:00 08/24/20 19:59 Vancomycin HCl ([facility] pharmacy to dose) 1 ea DAILY PRN MISC Per rx protocol 08/19/20 16:30 09/18/20 16:29 Allergies: Coded Allergies: PENICILLINS (Verified Allergy, Unknown, 03/10/20) PHENYTOIN (Verified Allergy, Unknown, 03/10/20) ROS Limited/Unobtainable: Yes Subjective 79 YO M admitted with respiratory distress. Now pneumonia. Cover for Int Med- Dr Saul. Step down unit. Extubated 08/14/20. Back on BIPAP Objective Last Vital Signs Date Time Temp Pulse Resp B/P (MAP) Pulse Ox O2 Delivery O2 Flow Rate FiO2 08/19/20 17:00 70 08/19/20 17:00 26 98 08/19/20 16:00 Bi-pap 08/19/20 16:00 98 08/19/20 16:00 97.3 132/91 (105) 08/18/20 08:00 2.0 Laboratory Tests Test 08/19/20 03:11 White Blood Count 9.5 K/UL (4.8-10.8) Red Blood Count 3.41 M/UL (4.70-6.10) L Hemoglobin 9.1 G/DL (14.2-18.0) L Hematocrit 30.5 % (42.0-52.0) L Mean Corpuscular Volume 89 FL (80-99) Mean Corpuscular Hemoglobin 26.6 PG (27.0-31.0) L Mean Corpuscular Hemoglobin Concent 29.8 G/DL (32.0-36.0) L Red Cell Distribution Width 14.8 % (11.6-14.8) Platelet Count 218 K/UL (150-450) Mean Platelet Volume 5.6 FL (6.5-10.1) L Neutrophils (%) (Auto) % (45.0-75.0) Lymphocytes (%) (Auto) % (20.0-45.0) Monocytes (%) (Auto) % (1.0-10.0) Eosinophils (%) (Auto) % (0.0-3.0) Basophils (%) (Auto) % (0.0-2.0) Differential Total Cells Counted 100 Neutrophils % (Manual) 85 % (45-75) H Lymphocytes % (Manual) 5 % (20-45) L Monocytes % (Manual) 7 % (1-10) Eosinophils % (Manual) 0 % (0-3) Basophils % (Manual) 0 % (0-2) Band Neutrophils 3 % (0-8) Platelet Estimate Adequate Platelet Morphology Normal Red Blood Cell Morphology Normal Sodium Level 139 MMOL/L (136-145) Potassium Level 4.0 MMOL/L (3.5-5.1) Chloride Level 100 MMOL/L (98-107) Carbon Dioxide Level 36 MMOL/L (21-32) H Anion Gap 3 mmol/L (5-15) L Blood Urea Nitrogen 11 mg/dL (7-18) Creatinine 0.6 MG/DL (0.55-1.30) Estimat Glomerular Filtration Rate > 60 mL/min (>60) Glucose Level 150 MG/DL (74-106) H Calcium Level 8.7 MG/DL (8.5-10.1) Phosphorus Level 2.1 MG/DL (2.5-4.9) L Magnesium Level 2.0 MG/DL (1.8-2.4) Total Bilirubin 0.5 MG/DL (0.2-1.0) Aspartate Amino Transf (AST/SGOT) 28 U/L (15-37) Alanine Aminotransferase (ALT/SGPT) 45 U/L (12-78) Alkaline Phosphatase 48 U/L (46-116) C-Reactive Protein, Quantitative 6.0 mg/dL (0.00-0.90) H Total Protein 5.9 G/DL (6.4-8.2) L Albumin 2.8 G/DL (3.4-5.0) L Globulin 3.1 g/dL Albumin/Globulin Ratio 0.9 (1.0-2.7) L Intake and Output 08/18/20 08/19/20 19:00 07:00 Intake Total 1222.5 ml 600 ml Output Total 1350 ml 1400 ml Balance -127.5 ml -800 ml IV Total 1222.5 ml 600 ml Output Urine Total 1350 ml 1400 ml # Bowel Movements 2 Objective PHYSICAL EXAMINATION: GENERAL: The patient is well-developed, well-nourished male, in moderate respiratory distress. HEENT: Eyes, pupils are equal and responsive to light and accommodation. Extraocular movements are intact. NECK: Supple. No lymphadenopathy. CHEST: BIPAP; Lungs are clear to auscultation bilaterally without wheezes or rales. CARDIOVASCULAR: Regular rhythm and rate. S1-S2 are normal without murmurs, rubs, or gallops. ABDOMEN: Soft, nontender, and nondistended. Positive bowel sounds. No evidence of hepatosplenomegaly. Currently, no rebound or guarding noted. EXTREMITIES: Negative for clubbing, cyanosis, or edema. RECTAL/GENITAL: Not performed. NEUROLOGIC: Cranial nerves II through XII are grossly intact without focal deficits. Motor strength is 5/5 bilaterally. Deep tendon reflexes are 2+ plantar. Assessment/Plan Assessment/Plan ASSESSMENT: This is an 79-year-old male with. 1. Respiratory failure-intubated 08/05/20; extubated 08/14/20>back on BIPAP 08/19/20 2. Right-sided pneumonia. 3. Hypertension. 4. Congestive heart failure. 5. Chronic obstructive pulmonary disease. 6. Anemia. 7. Cerebrovascular disease, status post cerebrovascular accident. 8. Peripheral vascular disease. 9. Gastroesophageal reflux disease. 10. Major depression. 11. Seizure disorder. 12. History of COVID-19 positive in February 2020. 13. Benign prostatic hypertrophy. 14. Hypokalemia TREATMENT: 1. Respiratory failure/right-sided pneumonia pulmonary consultation= Dr. Micha Schneider. ABX= meropenem, vanco and cefepime; S/P flagyl Infectious Disease= Dr. Urrutia. Follow recommendations of Infectious Disease and Pulmonary. 2. Hypertension. The patient is currently hypotensive. 3. Congestive heart failure. 4. Chronic obstructive pulmonary disease. Continue DuoNeb as above. 5. Anemia. 6. Cerebrovascular disease. 7. Peripheral vascular disease. 8. Gastroesophageal reflux disease. Continue famotidine as above. 9. Major depression. Seizure disorder. 10. COVID-19 positive, history in February 2020. 11. Benign prostatic hypertrophy. Continue Flomax as above. 12. Oral potassium supp Pablo Hickman MD Aug 19, 2020 18:24
--- NOTE | 2020-08-19 19:10 | NUR ---
NURSE HAND-OFF REPORT: Important Events on Shift:on BIPAP to titrate,keep watch pulling Patient Status: on BIPAP continous Diet: NPO aspitation risk head elevated Pending Orders: sputum collection Pending Results/Labs:N Pending notification:N Latest Vital Signs: Temperature 97.3 , Pulse 98 , B/P 132 /91 , Respiratory Rate 26 , O2 SAT 98 , Venturi Mask, O2 Flow Rate 2.0 . Vital Sign Comment: EKG Rhythm: Sinus Rhythm Rhythm change?: N MD Notified?: - MD Response: Latest Castro Fall Score: 50 Fall Risk: High Risk Safety Measures: Call light Within Reach, Bed Alarm Zone 1, Side Rails Side Rails x3, Bed position Low and Locked. Fall Precautions: Yellow Socks Yellow Gown Door Sign Patient Fall Education Report given to . Addendum: 08/19/20 at 1916 by Martina Moura RN report given to ION Pineda
--- NOTE | 2020-08-19 19:11 | NUR ---
NURSE NOTES: Report received from Martina LEMON. Upon assessment pt is A/Ox1; non-responsive to verbal stimuli. Vitals WNL. Afebrile. Left sided weakness observed. Attempts to remove BiPAP mask. Saturating 100% on prescribed BiPAP settings of 14/8 70% fiO2 LIBBY TLC running D5NS + 20mEq Kcl at 50 mL. Bed kept in lowest and locked position. Side rails up x3.Call light within reach. Will monitor.
[2020-08-19 20:00] VITALS: BP 104/71
--- NOTE | 2020-08-19 20:00 | NUR ---
NURSE NOTES: Initiate CPT with RT at bedside. Unable to collect sputum culture, pt noncompliant. Made aware of right lobe atelectasis; kept pt on left side. Will monitor.
[2020-08-19] MEDS: Miralax 17gm pkt ORAL SCH (20:36)
[2020-08-19] MEDS: Vancomycin 1.25gm/250ml Premix IVPB SCH (20:36)
[2020-08-19] MEDS: Dyna-Hex 2% Top Sol 2oz TOPIC SCH (20:36)
[2020-08-20] VITALS: BP 100/65
[2020-08-20] MEDS: Solu-MEDROL 40mg Inj IVP SCH ×3 (00:43→20:43)
[2020-08-20] MEDS: Acetylcysteine 20% Soln 4ml HHN SCH ×4 (01:29→20:08)
[2020-08-20] MEDS: Albuterol/Ipratropium 3ml neb HHN SCH ×4 (01:29→20:08)
[2020-08-20 04:00] VITALS: BP 131/72
--- NOTE | 2020-08-20 04:40 | NUR ---
NURSE NOTES: Bed bath provided. No distress noted. Will monitor.
--- NOTE | 2020-08-20 04:50 | NUR ---
NURSE NOTES: Made aware pt has not been getting Gabapentin PO secondary to NPO status/BiPAP. Will attempt to wean with RT as tolerated.
[2020-08-20] MEDS: Vancomycin 1.25gm/250ml Premix IVPB SCH ×2 (05:00→12:30)
[2020-08-20] MEDS: Gabapentin 300 MG/6 ML Soln NG SCH ×2 (05:01→14:13)
[2020-08-20 05:44] LABS: HEMATOCRIT 25.1 % (42.0-52.0); HEMOGLOBIN 7.6 G/DL (14.2-18.0); MEAN CORPUSCULAR VOLUME 90 FL (80-99); PLATELET COUNT 196 K/UL (150-450); RED BLOOD COUNT 2.79 M/UL (4.70-6.10); RED CELL DISTRIBUTION WIDTH 15.4 % (11.6-14.8); WHITE BLOOD COUNT 8.5 K/UL (4.8-10.8)
[2020-08-20 06:19] LABS: ALANINE AMINOTRANSFERASE 43 U/L (12-78); ALBUMIN 2.5 G/DL (3.4-5.0); ALBUMIN/GLOBULIN RATIO 0.9 (1.0-2.7); ALKALINE PHOSPHATASE 39 U/L (46-116); ANION GAP 3 mmol/L (5-15); ASPARTATE AMINO TRANSFERASE 24 U/L (15-37); BILIRUBIN,TOTAL 0.3 MG/DL (0.2-1.0); BLOOD UREA NITROGEN 14 mg/dL (7-18); CALCIUM 8.1 MG/DL (8.5-10.1); CARBON DIOXIDE 35 MMOL/L (21-32); CHLORIDE 104 MMOL/L (98-107); CREATININE 0.6 MG/DL (0.55-1.30); POTASSIUM 3.8 MMOL/L (3.5-5.1); SODIUM 142 MMOL/L (136-145)
--- NOTE | 2020-08-20 07:12 | NUR ---
NURSE HAND-OFF REPORT: Important Events on Shift: Unable to collect sputum; pt noncompliant. Patient Status: Stable Diet: NPO (BiPAP Pending Orders: Pending Results/Labs: Pending MD notification: Latest Vital Signs: Temperature 97.7 , Pulse 73 , B/P 131 /72 , Respiratory Rate 31 , O2 SAT 100 , Venturi Mask, O2 Flow Rate 2.0 . Vital Sign Comment: EKG Rhythm: Sinus Rhythm Rhythm change?: N MD Notified?: - MD Response: Latest Castro Fall Score: 50 Fall Risk: High Risk Safety Measures: Call light Within Reach, Bed Alarm Zone 1, Side Rails Side Rails x3, Bed position Low and Locked. Fall Precautions: Yellow Socks Yellow Gown Door Sign Patient Fall Education Report given to ION Foreman.
[2020-08-20 08:00] VITALS: BP 99/59
--- NOTE | 2020-08-20 08:15 | NUR ---
NURSE NOTES: I was notified respiratory therapist O2 now 2 L NC O2 saturation 92-93 0850 2L NC O2 saturation 89-90, given 3L NC O2 saturation 93-94 %,no complaints shortness of breath,continue to monitor
--- NOTE | 2020-08-20 08:16 | NUR ---
RADIOLOGY DEPT., CHEST X-RAY DONE.-P.DYE
--- NOTE | 2020-08-20 08:50 | NUR ---
NURSE NOTES: Called speech therapist-Antonia,he is not available today,he will come tomorrow,aspiration precaution,primary RN Melissa notified-O2 3L NC,speech therapist notified
[2020-08-20] MEDS: Docusate 100mg/10ml Liq NG SCH ×2 (09:00→20:50)
[2020-08-20] MEDS: Enoxaparin 60mg Inj SUBQ SCH ×2 (09:18→20:46)
--- NOTE | 2020-08-20 10:14 | NUR ---
NURSE NOTES: Received patient report from ION Pineda. Patient is AO x2 awake and able to make needs known. Patient shows no signs of distress or pain at the time. Patient has been titrated down to 3L nasal canula and tolerating well, saturating at 96%. Patient has also been removed from NPO and given Regular pureed food as long as he is tolerating. Patient shows no signs of aspiration. IV is intact and patent. Patient also has triple lumen PICC line flushed and patent. Bed is in the lowest position, call light is within reach, side rails up x3. Will continue to monitor.
--- NOTE | 2020-08-20 10:22 | Surgery Progress Note ---
Surgery Progress Note Subjective Additional Comments Patient seen examined bedside. Doing well. Alert awake talkative. States he is very hungry. No nausea vomit fever chills. No recent aspiration. Bedside trial p erformed patient tolerated well good reflex good swallow no retention. Okay to start diet evaluation. Objective Last 24 Hour Vital Signs Date Time Temp Pulse Resp B/P (MAP) Pulse Ox O2 Delivery O2 Flow Rate FiO2 08/20/20 08:50 3.0 08/20/20 08:15 2.0 08/20/20 08:00 70 08/20/20 08:00 97.7 80 20 99/59 (72) 99 08/20/20 07:54 78 08/20/20 07:48 80 31 100 40 08/20/20 07:48 100 Bi-Pap 40 08/20/20 05:33 73 31 100 40 08/20/20 04:00 97.7 74 20 131/72 (91) 100 08/20/20 04:00 70 08/20/20 04:00 88 08/20/20 04:00 Bi-pap 08/20/20 03:20 80 32 100 70 08/20/20 01:32 78 31 98 Bi-Pap 70 84 34 100 70 08/20/20 00:00 87 08/20/20 00:00 70 08/20/20 00:00 97.2 89 20 100/65 (77) 100 08/20/20 00:00 Bi-pap 08/19/20 23:30 95 38 97 70 08/19/20 21:12 98 40 100 70 08/19/20 20:00 96 08/19/20 20:00 70 08/19/20 20:00 Bi-pap 08/19/20 20:00 97.9 90 24 104/71 (82) 100 08/19/20 19:51 Bi-Pap 08/19/20 19:30 100 35 95 Bi-Pap 70 102 40 96 70 08/19/20 17:00 70 08/19/20 17:00 26 98 08/19/20 16:00 Bi-pap 08/19/20 16:00 98 08/19/20 16:00 97.3 99 26 132/91 (105) 100 08/19/20 16:00 80 08/19/20 14:05 97 41 98 Bi-Pap 70 08/19/20 14:05 97 44 96 Bi-Pap 70 98 42 97 70 08/19/20 12:03 Bi-pap 08/19/20 12:00 80 08/19/20 12:00 97.7 95 28 132/91 (105) 95 08/19/20 11:46 97 08/19/20 11:00 80 08/19/20 10:30 100 33 96 80 I&O Intake and Output 08/19/20 08/20/20 19:00 07:00 Intake Total 550 ml 783.5 ml Output Total 1550 ml 700 ml Balance -1000 ml 83.5 ml IV Total 550 ml 783.5 ml Output Urine Total 1550 ml 700 ml # Bowel Movements 2 Dressing: dry Wound: clean Cardiovascular: RSR Respiratory: clear, decreased breath sounds Abdomen: soft, flat, non-tender, present bowel sounds, non-distended Extremities: no edema, no tenderness, no cyanosis Laboratory Tests Test 08/20/20 04:55 White Blood Count 8.5 K/UL (4.8-10.8) Red Blood Count 2.79 M/UL (4.70-6.10) L Hemoglobin 7.6 G/DL (14.2-18.0) L Hematocrit 25.1 % (42.0-52.0) L Mean Corpuscular Volume 90 FL (80-99) Mean Corpuscular Hemoglobin 27.3 PG (27.0-31.0) Mean Corpuscular Hemoglobin Concent 30.3 G/DL (32.0-36.0) L Red Cell Distribution Width 15.4 % (11.6-14.8) H Platelet Count 196 K/UL (150-450) Mean Platelet Volume 6.2 FL (6.5-10.1) L Neutrophils (%) (Auto) % (45.0-75.0) Lymphocytes (%) (Auto) % (20.0-45.0) Monocytes (%) (Auto) % (1.0-10.0) Eosinophils (%) (Auto) % (0.0-3.0) Basophils (%) (Auto) % (0.0-2.0) Differential Total Cells Counted 100 Neutrophils % (Manual) 94 % (45-75) H Lymphocytes % (Manual) 5 % (20-45) L Monocytes % (Manual) 1 % (1-10) Eosinophils % (Manual) 0 % (0-3) Basophils % (Manual) 0 % (0-2) Band Neutrophils 0 % (0-8) Platelet Estimate Adequate Platelet Morphology Normal Hypochromasia 1+ Anisocytosis 1+ Sodium Level 142 MMOL/L (136-145) Potassium Level 3.8 MMOL/L (3.5-5.1) Chloride Level 104 MMOL/L (98-107) Carbon Dioxide Level 35 MMOL/L (21-32) H Anion Gap 3 mmol/L (5-15) L Blood Urea Nitrogen 14 mg/dL (7-18) Creatinine 0.6 MG/DL (0.55-1.30) Estimat Glomerular Filtration Rate > 60 mL/min (>60) Glucose Level 137 MG/DL (74-106) H Calcium Level 8.1 MG/DL (8.5-10.1) L Total Bilirubin 0.3 MG/DL (0.2-1.0) Aspartate Amino Transf (AST/SGOT) 24 U/L (15-37) Alanine Aminotransferase (ALT/SGPT) 43 U/L (12-78) Alkaline Phosphatase 39 U/L (46-116) L Total Protein 5.2 G/DL (6.4-8.2) L Albumin 2.5 G/DL (3.4-5.0) L Globulin 2.7 g/dL Albumin/Globulin Ratio 0.9 (1.0-2.7) L Plan Problems: (1) Abdominal distension Assessment & Plan: 79M abdominal distention, respiratory decline, altered mental status. on exam noted abd soft, mild distended, non tender. no n/v/f/c. unlikely aspiration. non tender one exam. pending urine and covid test. no acute surgical intervention. hold on ct. kub ordered. will follow with exam and recs. keep npo for now. iv fluids. respiratory pulm support. will follow with recs thank you decline since admission now intubated ng tube to suction no acute surgical intervention cont abx kub noted wean vent enema when stable improved tolerating diet cont diet no n/v labs okay The rectum is considerably distended with stool. Considerable stool is also seen in the descending colon. The colon is diffusely gas filled, upper limits of normal in caliber. No significant small bowel gas demonstrated. No masses or unusual calcifications. The included lung bases demonstrate bilateral right greater than left pleural effusions. There is a Butler catheter Impression: Distended stool-filled rectum, fecal impaction possible Gas-filled upper limits of normal caliber colon, nonspecific Bilateral right greater than left pleural effusions (2) UTI (urinary tract infection) (3) Pneumonia (4) Multiple pulmonary nodules (5) Respiratory failure with hypoxia Assessment & Plan: cont weaning (6) Pneumonia due to COVID-19 virus (7) History of CVA (cerebrovascular accident) (8) COPD (chronic obstructive pulmonary disease) (9) HTN (hypertension) (10) Hx of prostatic malignancy (11) Major depression (12) Seizure disorder Destin Brown Aug 20, 2020 10:22
--- NOTE | 2020-08-20 10:43 | Cardiac Electrophysiology PN ---
Assessment/Plan Assessment/Plan 1. Respiratory failure. On IV antibiotic. Extubated 08/14/20 Echo showed EF 50%. Was on BIPAP with 80% Fio2 yesterday but today on 3 liter NC and 96% sat. 2. Questionable congestive heart failure. EF normal and BNP is only 39. 3. S/P Septic shock, off Levo 4. History of COVID pneumonia, status post vaccination for COVID. Currently on IV antibiotic and prednisone. Now off isolation 5. DVT on Eliquis 2.5 mg b.i.d. Currently in SR 6. Full Code Subjective Subjective In SDU extubated 08/14/20 Off pressors off BIPAP this AM on 3 liter NC and 96% saturation Objective Last 24 Hour Vital Signs Date Time Temp Pulse Resp B/P (MAP) Pulse Ox O2 Delivery O2 Flow Rate FiO2 08/20/20 08:50 3.0 08/20/20 08:15 2.0 08/20/20 08:00 70 08/20/20 08:00 97.7 80 20 99/59 (72) 99 08/20/20 07:54 78 08/20/20 07:48 80 31 100 40 08/20/20 07:48 100 Bi-Pap 40 08/20/20 05:33 73 31 100 40 08/20/20 04:00 97.7 74 20 131/72 (91) 100 08/20/20 04:00 70 08/20/20 04:00 88 08/20/20 04:00 Bi-pap 08/20/20 03:20 80 32 100 70 08/20/20 01:32 78 31 98 Bi-Pap 70 84 34 100 70 08/20/20 00:00 87 08/20/20 00:00 70 08/20/20 00:00 97.2 89 20 100/65 (77) 100 08/20/20 00:00 Bi-pap 08/19/20 23:30 95 38 97 70 08/19/20 21:12 98 40 100 70 08/19/20 20:00 96 08/19/20 20:00 70 08/19/20 20:00 Bi-pap 08/19/20 20:00 97.9 90 24 104/71 (82) 100 08/19/20 19:51 Bi-Pap 08/19/20 19:30 100 35 95 Bi-Pap 70 102 40 96 70 08/19/20 17:00 70 08/19/20 17:00 26 98 08/19/20 16:00 Bi-pap 08/19/20 16:00 98 08/19/20 16:00 97.3 99 26 132/91 (105) 100 08/19/20 16:00 80 08/19/20 14:05 97 41 98 Bi-Pap 70 08/19/20 14:05 97 44 96 Bi-Pap 70 98 42 97 70 08/19/20 12:03 Bi-pap 08/19/20 12:00 80 08/19/20 12:00 97.7 95 28 132/91 (105) 95 08/19/20 11:46 97 08/19/20 11:00 80 Intake and Output 08/19/20 08/20/20 19:00 07:00 Intake Total 550 ml 783.5 ml Output Total 1550 ml 700 ml Balance -1000 ml 83.5 ml IV Total 550 ml 783.5 ml Output Urine Total 1550 ml 700 ml # Bowel Movements 2 Laboratory Tests Test 08/20/20 04:55 White Blood Count 8.5 K/UL (4.8-10.8) Red Blood Count 2.79 M/UL (4.70-6.10) L Hemoglobin 7.6 G/DL (14.2-18.0) L Hematocrit 25.1 % (42.0-52.0) L Mean Corpuscular Volume 90 FL (80-99) Mean Corpuscular Hemoglobin 27.3 PG (27.0-31.0) Mean Corpuscular Hemoglobin Concent 30.3 G/DL (32.0-36.0) L Red Cell Distribution Width 15.4 % (11.6-14.8) H Platelet Count 196 K/UL (150-450) Mean Platelet Volume 6.2 FL (6.5-10.1) L Neutrophils (%) (Auto) % (45.0-75.0) Lymphocytes (%) (Auto) % (20.0-45.0) Monocytes (%) (Auto) % (1.0-10.0) Eosinophils (%) (Auto) % (0.0-3.0) Basophils (%) (Auto) % (0.0-2.0) Differential Total Cells Counted 100 Neutrophils % (Manual) 94 % (45-75) H Lymphocytes % (Manual) 5 % (20-45) L Monocytes % (Manual) 1 % (1-10) Eosinophils % (Manual) 0 % (0-3) Basophils % (Manual) 0 % (0-2) Band Neutrophils 0 % (0-8) Platelet Estimate Adequate Platelet Morphology Normal Hypochromasia 1+ Anisocytosis 1+ Sodium Level 142 MMOL/L (136-145) Potassium Level 3.8 MMOL/L (3.5-5.1) Chloride Level 104 MMOL/L (98-107) Carbon Dioxide Level 35 MMOL/L (21-32) H Anion Gap 3 mmol/L (5-15) L Blood Urea Nitrogen 14 mg/dL (7-18) Creatinine 0.6 MG/DL (0.55-1.30) Estimat Glomerular Filtration Rate > 60 mL/min (>60) Glucose Level 137 MG/DL (74-106) H Calcium Level 8.1 MG/DL (8.5-10.1) L Total Bilirubin 0.3 MG/DL (0.2-1.0) Aspartate Amino Transf (AST/SGOT) 24 U/L (15-37) Alanine Aminotransferase (ALT/SGPT) 43 U/L (12-78) Alkaline Phosphatase 39 U/L (46-116) L Total Protein 5.2 G/DL (6.4-8.2) L Albumin 2.5 G/DL (3.4-5.0) L Globulin 2.7 g/dL Albumin/Globulin Ratio 0.9 (1.0-2.7) L Objective HEAD AND NECK: No JVD on BIPAP LUNGS: Coarse rhonchi. CARDIOVASCULAR: Regular S1 and S2 with no gallop. ABDOMEN: Soft. EXTREMITIES: 1 plus pitting edema. Devyn Magdaleno MD Aug 20, 2020 10:43
--- NOTE | 2020-08-20 11:08 | Pulmonology Progress Note ---
Subjective ROS Limited/Unobtainable: Yes Interval Events: Intubated 08/05/20; extubated 08/14/20; s/p BiPAP -> now 3L NC Constitutional: Reports: other - less sob, off bipap, alert, no pressors ; Denies: fever HEENT: Repors: no symptoms Respiratory: Reports: shortness of breath Cardiovascular: Reports: no symptoms Gastrointestinal/Abdominal: Denies: nausea, vomiting, diarrhea Genitourinary: Reports: no symptoms Neurologic: Reports: no symptoms Psychiatric: Reports: other - NA Skin: Denies: rash Musculoskeletal: Reports: other - NA Allergies: Coded Allergies: PENICILLINS (Verified Allergy, Unknown, 03/10/20) PHENYTOIN (Verified Allergy, Unknown, 03/10/20) Objective Last 24 Hour Vital Signs Date Time Temp Pulse Resp B/P (MAP) Pulse Ox O2 Delivery O2 Flow Rate FiO2 08/20/20 08:50 3.0 08/20/20 08:15 2.0 08/20/20 08:00 70 08/20/20 08:00 Bi-pap 08/20/20 08:00 97.7 80 20 99/59 (72) 99 08/20/20 07:54 78 08/20/20 07:48 80 31 100 40 08/20/20 07:48 100 Bi-Pap 40 08/20/20 05:33 73 31 100 40 08/20/20 04:00 97.7 74 20 131/72 (91) 100 08/20/20 04:00 70 08/20/20 04:00 88 08/20/20 04:00 Bi-pap 08/20/20 03:20 80 32 100 70 08/20/20 01:32 78 31 98 Bi-Pap 70 84 34 100 70 08/20/20 00:00 87 08/20/20 00:00 70 08/20/20 00:00 97.2 89 20 100/65 (77) 100 08/20/20 00:00 Bi-pap 08/19/20 23:30 95 38 97 70 08/19/20 21:12 98 40 100 70 08/19/20 20:00 96 08/19/20 20:00 70 08/19/20 20:00 Bi-pap 08/19/20 20:00 97.9 90 24 104/71 (82) 100 08/19/20 19:51 Bi-Pap 08/19/20 19:30 100 35 95 Bi-Pap 70 102 40 96 70 08/19/20 17:00 70 08/19/20 17:00 26 98 08/19/20 16:00 Bi-pap 08/19/20 16:00 98 08/19/20 16:00 97.3 99 26 132/91 (105) 100 08/19/20 16:00 80 08/19/20 14:05 97 41 98 Bi-Pap 70 08/19/20 14:05 97 44 96 Bi-Pap 70 98 42 97 70 08/19/20 12:03 Bi-pap 08/19/20 12:00 80 08/19/20 12:00 97.7 95 28 132/91 (105) 95 08/19/20 11:46 97 Intake and Output 08/19/20 08/20/20 19:00 07:00 Intake Total 550 ml 783.5 ml Output Total 1550 ml 700 ml Balance -1000 ml 83.5 ml IV Total 550 ml 783.5 ml Output Urine Total 1550 ml 700 ml # Bowel Movements 2 General Appearance: no acute distress HEENT: normocephalic Respiratory: chest wall non-tender, lungs clear Cardiovascular: normal peripheral pulses, normal rate Abdomen: normal bowel sounds Extremities: no cyanosis Laboratory Tests 08/20/20 04:55: White Blood Count 8.5, Red Blood Count 2.79L, Hemoglobin 7.6L, Hematocrit 25.1L, Mean Corpuscular Volume 90, Mean Corpuscular Hemoglobin 27.3, Mean Corpuscular Hemoglobin Concent 30.3L, Red Cell Distribution Width 15.4H, Platelet Count 196, Mean Platelet Volume 6.2L, Neutrophils (%) (Auto) , Lymphocytes (%) (Auto) , Monocytes (%) (Auto) , Eosinophils (%) (Auto) , Basophils (%) (Auto) , Differential Total Cells Counted 100, Neutrophils % (Manual) 94H, Lymphocytes % (Manual) 5L, Monocytes % (Manual) 1, Eosinophils % (Manual) 0, Basophils % (Manual) 0, Band Neutrophils 0, Platelet Estimate Adequate, Platelet Morphology Normal, Hypochromasia 1+, Anisocytosis 1+, Sodium Level 142, Potassium Level 3.8, Chloride Level 104, Carbon Dioxide Level 35H, Anion Gap 3L, Blood Urea Nitrogen 14, Creatinine 0.6, Estimat Glomerular Filtration Rate > 60, Glucose Level 137H, Calcium Level 8.1L, Total Bilirubin 0.3, Aspartate Amino Transf (AST/SGOT) 24, Alanine Aminotransferase (ALT/SGPT) 43, Alkaline Phosphatase 39L, Total Protein 5.2L, Albumin 2.5L, Globulin 2.7, Albumin/Globulin Ratio 0.9L Current Medications Medications (Trade) Dose Ordered Sig/Armand Route PRN Reason Start Time Stop Time Status Last Admin Dose Admin Acetaminophen (Tylenol) 650 mg Q6H PRN NG Mild Pain (Pain Scale 1-3) 08/08/20 14:00 09/07/20 13:59 08/13/20 17:02 Acetaminophen (Tylenol) 650 mg Q6H PRN NG Temp >100.5 08/08/20 14:00 09/07/20 13:59 Acetylcysteine (Mucomyst) 200 mg Q6HRT HHN 08/18/20 10:30 11/16/20 10:29 08/20/20 07:47 Albuterol/ Ipratropium (Albuterol/ Ipratropium) 3 ml Q4H PRN HHN Shortness of Breath 08/17/20 18:30 08/22/20 18:29 08/17/20 18:46 Albuterol/ Ipratropium (Albuterol/ Ipratropium) 3 ml Q6HRT HHN 08/18/20 10:30 08/23/20 10:29 08/20/20 07:47 Chlorhexidine Gluconate (Maddie-Hex 2%) 1 applic DAILY@2000 TOPIC 08/07/20 20:00 11/05/20 19:59 08/19/20 20:36 Dextrose/ Electrolytes 1,000 ml @ 50 mls/hr Q20H IV 08/18/20 15:00 09/17/20 14:59 08/20/20 05:06 Docusate Sodium (Colace) 100 mg EVERY 12 HOURS NG 08/13/20 21:00 09/11/20 17:59 08/19/20 20:36 Enoxaparin Sodium (Lovenox) 60 mg EVERY 12 HOURS SUBQ 08/05/20 21:00 11/03/20 20:59 08/20/20 09:18 Famotidine (Pepcid I.v.) 20 mg Q12HR IVP 08/06/20 11:00 09/05/20 10:59 08/20/20 09:16 Gabapentin (Neurontin) 300 mg EVERY 8 HOURS NG 08/08/20 22:00 09/04/20 08:59 08/17/20 14:36 Meropenem 1 gm/ Sodium Chloride 100 ml @ 200 mls/hr Q8HR IVPB 08/19/20 22:00 08/24/20 21:59 08/20/20 05:06 Methylprednisolone Sodium Succinate (Solu-MEDROL) 40 mg Q6HR IVP 08/18/20 12:00 11/15/20 11:59 08/20/20 05:00 Polyethylene Glycol (Miralax) 17 gm BEDTIME ORAL 08/12/20 21:00 09/11/20 20:59 08/19/20 20:36 Vancomycin HCl 250 ml @ 166.667 mls/hr Q8HR@0400,1200,2000 IVPB 08/19/20 20:00 08/24/20 19:59 08/20/20 05:00 Vancomycin HCl ([facility] pharmacy to dose) 1 ea DAILY PRN MISC Per rx protocol 08/19/20 16:30 09/18/20 16:29 Assessment/Plan Assessment/Plan 1. UTI -s/p empiric antibiotics -Follow-up UCx negative (08/03) 2. Pneumonia -s/p broad-spectrum antibiotics - CXR concerning for volume loss; latest CXR shows RUL atelectasis - CT chest shows dense RUL and RML consolidation - High suspicion for RBI narrowing ; no obvious endobronchial narrowing noted on bronchoscopy - CXR (08/18) New/increased right upper lobe infiltrate and atelectasis 3. COPD exacerbation -Now extubated 4. Respiratory distress - Was on BIPAP with 80% Fio2 yesterday but today on 3 L NC saturating at 96% - will taper steroid - added HHN with mucomyst and duonebs - intensified pulm hygiene with VEST and CPT 5. History of seizures -Risk of aspiration -Monitor for seizure activity 6. Elevated CRP -D-dimer wnl -His outpatient medications include Eliquis (hx of A fib?) - Continue Eliquis The care for this patient was discussed with my supervising physician Time spent for this case was approximately 31 minutes The patient was seen and examined at bedside and all new and available data was reviewed in the patients chart. I agree with the above findings, impression, and plan. (Patient was seen earlier today. Signature timestamp does not reflect patient encounter time) Edwin Ramirez MD Aug 20, 2020 11:08 Micha Schneider MD Aug 20, 2020 15:19
--- NOTE | 2020-08-20 11:22 | NUR ---
RD ASSESSMENT & RECOMMENDATIONS SEE CARE ACTIVITY FOR COMPLETE ASSESSMENT DAILY ESTIMATED NEEDS: Needs based on Pulmonary, cardiac / 75.7kg abw 25-30 kcals/kg 8742-3158 total kcals 1.25-1.5 g protein/kg 95-114 g total protein 25-30 mL/kg 0468-3878 total fluid mLs NUTRITION DIAGNOSIS: Swallowing difficulty R/T respiratory failure as evidenced by pt is now extubated (08/14), now on Bipap w/ aspiration risk, on puree texture diet. CURRENT DIET:On bipap, now Regular/ puree PO DIET RECOMMENDATIONS: LOW NA/ texture per WORKFLOW DEVELOPER ADDITIONAL RECOMMENDATIONS: 1) Calibrated bedscale wts 2) F/up w/ WORKFLOW DEVELOPER eval and rec 3) Monitor BGs w/ Solumedrol, need for carb controlled diet and/or NISS 4) Monitor lytes, replete as needed (phos 2.1) 5) Monitor respiratory status: s/p extubation (08/14), now on Bipa Now on puree texture diet-> add ensure enlive tid w/ meals 6) With oral diet add FÉLIX BID for skin integrity
[2020-08-20 12:00] VITALS: BP 97/61
--- NOTE | 2020-08-20 13:01 | Nephrology Progress Note ---
Assessment/Plan Problem List: (1) Oliguria (2) Electrolyte imbalance (3) Pneumonia (4) Respiratory failure with hypoxia (5) Pneumonia due to COVID-19 virus (6) Seizure disorder (7) Anemia Assessment Sepsis, respiratory failure Pneumonia and possible aspiration. Questionable COVID-19 infection UTI Abnormal electrolytes Questionable CHF Anemia Plan August 20: Patient on oxygen with nasal cannula. Labs reviewed. Renal parameters stable. Remains full code. Continue per pulmonary and other consultants. August 19: Patient on BiPAP. Labs reviewed. Abnormal electrolytes addressed. Patient full code. Continue to monitor ABG and renal parameters. Continue per consultants. August 18: Patient's clinical condition deteriorated. Back on BiPAP. Mental status down. Cannot take p.o. Will give potassium IV. Patient remains full code. Continue per ecommerce project manager. Hypotonic IV fluid changed to isotonic August 17: Continues to tolerate extubation. Not in any distress and verbal. Labs reviewed. Low potassium addressed. Patient full code. Medication list reviewed. Continue per consultants. August 16: Post extubation. Tolerating well. Labs reviewed. Low potassium addressed. Continue per consultants. Stable from renal standpoint of view. Full code. August 15: Patient extubated on oxygen with cannula. Variable asking for coffee. Renal parameters stable. Continue per consultants. August 14: Status unchanged. Remains full code, intubated, on ventilator, FiO2 of 40%. Labs reviewed. Renal parameters stable. Hemoglobin lower. Suggest transfusion. August 13: Status quo. Remains full code, intubated, on FiO2 of 40%. Labs reviewed. Renal parameters stable. Continue per consultants. August 12: Intubated on ventilator. FiO2 40% unchanged. Full code. Labs reviewed. Renal parameters stable. Continue per consultants. August 11: Intubated on ventilator. O2 40%. Full code. Medication list reviewed. Labs reviewed. Stable from renal standpoint of view. Continue per consultants. August 10: Status quo. Intubated on ventilator. FiO2 remains 40%. Renal parameters stable. Continue per current management. Potassium and phosphorus supplement given August 09: Full code. Intubated on ventilator. FiO2 40%. Labs reviewed. Stable from renal standpoint of view. August 08: Labs reviewed. Renal parameters stable. Abnormal electrolytes addressed. Remains full code. FiO2 50%. Continue per consultants. Discussed with RN. August 07: Labs reviewed. K Phos IV given. Patient intubated. Full code. FiO2 60%. Medication list reviewed. Continue per consultants. Previously: Optimize pulmonary status Optimize cardiac status Monitor renal parameters, urine output, electrolytes Change IV to half-normal saline Anemia mansfield Insert NG tube and start feeding Per orders Subjective ROS Limited/Unobtainable: Yes Objective Objective Last 24 Hour Vital Signs Date Time Temp Pulse Resp B/P (MAP) Pulse Ox O2 Delivery O2 Flow Rate FiO2 08/20/20 12:00 Nasal Cannula 3.0 08/20/20 12:00 97.7 93 20 97/61 (73) 96 08/20/20 11:47 93 08/20/20 08:50 3.0 08/20/20 08:15 2.0 08/20/20 08:00 70 08/20/20 08:00 Bi-pap 08/20/20 08:00 97.7 80 20 99/59 (72) 99 08/20/20 07:54 78 08/20/20 07:48 80 31 100 40 08/20/20 07:48 100 Bi-Pap 40 08/20/20 07:10 72 28 98 08/20/20 05:33 73 31 100 40 08/20/20 04:00 97.7 74 20 131/72 (91) 100 08/20/20 04:00 70 08/20/20 04:00 88 08/20/20 04:00 Bi-pap 08/20/20 03:20 80 32 100 70 08/20/20 01:32 78 31 98 Bi-Pap 70 84 34 100 70 08/20/20 00:00 87 08/20/20 00:00 70 08/20/20 00:00 97.2 89 20 100/65 (77) 100 08/20/20 00:00 Bi-pap 08/19/20 23:30 95 38 97 70 08/19/20 21:12 98 40 100 70 08/19/20 20:00 96 08/19/20 20:00 70 08/19/20 20:00 Bi-pap 08/19/20 20:00 97.9 90 24 104/71 (82) 100 08/19/20 19:51 Bi-Pap 08/19/20 19:30 100 35 95 Bi-Pap 70 102 40 96 70 08/19/20 17:00 70 08/19/20 17:00 26 98 08/19/20 16:00 Bi-pap 08/19/20 16:00 98 08/19/20 16:00 97.3 99 26 132/91 (105) 100 08/19/20 16:00 80 08/19/20 14:05 97 41 98 Bi-Pap 70 08/19/20 14:05 97 44 96 Bi-Pap 70 98 42 97 70 Intake and Output 08/19/20 08/20/20 19:00 07:00 Intake Total 550 ml 783.5 ml Output Total 1550 ml 700 ml Balance -1000 ml 83.5 ml IV Total 550 ml 783.5 ml Output Urine Total 1550 ml 700 ml # Bowel Movements 2 Current Medications Medications (Trade) Dose Ordered Sig/Armand Route PRN Reason Start Time Stop Time Status Last Admin Dose Admin Acetaminophen (Tylenol) 650 mg Q6H PRN NG Mild Pain (Pain Scale 1-3) 08/08/20 14:00 09/07/20 13:59 08/13/20 17:02 Acetaminophen (Tylenol) 650 mg Q6H PRN NG Temp >100.5 08/08/20 14:00 09/07/20 13:59 Acetylcysteine (Mucomyst) 200 mg Q6HRT HHN 08/18/20 10:30 11/16/20 10:29 08/20/20 07:47 Albuterol/ Ipratropium (Albuterol/ Ipratropium) 3 ml Q4H PRN HHN Shortness of Breath 08/17/20 18:30 08/22/20 18:29 08/17/20 18:46 Albuterol/ Ipratropium (Albuterol/ Ipratropium) 3 ml Q6HRT HHN 08/18/20 10:30 08/23/20 10:29 08/20/20 07:47 Chlorhexidine Gluconate (Maddie-Hex 2%) 1 applic DAILY@2000 TOPIC 08/07/20 20:00 11/05/20 19:59 08/19/20 20:36 Dextrose/ Electrolytes 1,000 ml @ 50 mls/hr Q20H IV 08/18/20 15:00 09/17/20 14:59 08/20/20 05:06 Docusate Sodium (Colace) 100 mg EVERY 12 HOURS NG 08/13/20 21:00 09/11/20 17:59 08/19/20 20:36 Enoxaparin Sodium (Lovenox) 60 mg EVERY 12 HOURS SUBQ 08/05/20 21:00 11/03/20 20:59 08/20/20 09:18 Famotidine (Pepcid I.v.) 20 mg Q12HR IVP 08/06/20 11:00 09/05/20 10:59 08/20/20 09:16 Gabapentin (Neurontin) 300 mg EVERY 8 HOURS NG 08/08/20 22:00 09/04/20 08:59 08/17/20 14:36 Meropenem 1 gm/ Sodium Chloride 100 ml @ 200 mls/hr Q8HR IVPB 08/19/20 22:00 08/24/20 21:59 08/20/20 05:06 Methylprednisolone Sodium Succinate (Solu-MEDROL) 40 mg EVERY 12 HOURS IVP 08/20/20 21:00 11/18/20 20:59 Polyethylene Glycol (Miralax) 17 gm BEDTIME ORAL 08/12/20 21:00 09/11/20 20:59 08/19/20 20:36 Vancomycin HCl 250 ml @ 166.667 mls/hr Q8HR@0400,1200,2000 IVPB 08/19/20 20:00 08/24/20 19:59 08/20/20 12:30 Vancomycin HCl ([facility] pharmacy to dose) 1 ea DAILY PRN MISC Per rx protocol 08/19/20 16:30 09/18/20 16:29 Laboratory Tests 08/20/20 04:55: White Blood Count 8.5, Red Blood Count 2.79L, Hemoglobin 7.6L, Hematocrit 25.1L, Mean Corpuscular Volume 90, Mean Corpuscular Hemoglobin 27.3, Mean Corpuscular Hemoglobin Concent 30.3L, Red Cell Distribution Width 15.4H, Platelet Count 196, Mean Platelet Volume 6.2L, Neutrophils (%) (Auto) , Lymphocytes (%) (Auto) , Monocytes (%) (Auto) , Eosinophils (%) (Auto) , Basophils (%) (Auto) , Differential Total Cells Counted 100, Neutrophils % (Manual) 94H, Lymphocytes % (Manual) 5L, Monocytes % (Manual) 1, Eosinophils % (Manual) 0, Basophils % (Manual) 0, Band Neutrophils 0, Platelet Estimate Adequate, Platelet Morphology Normal, Hypochromasia 1+, Anisocytosis 1+, Sodium Level 142, Potassium Level 3.8, Chloride Level 104, Carbon Dioxide Level 35H, Anion Gap 3L, Blood Urea Nitrogen 14, Creatinine 0.6, Estimat Glomerular Filtration Rate > 60, Glucose Level 137H, Calcium Level 8.1L, Total Bilirubin 0.3, Aspartate Amino Transf (AST/SGOT) 24, Alanine Aminotransferase (ALT/SGPT) 43, Alkaline Phosphatase 39L, Total Protein 5.2L, Albumin 2.5L, Globulin 2.7, Albumin/Globulin Ratio 0.9L Height (Feet): 6 Height (Inches): 1.00 Weight (Pounds): 190 General Appearance: no apparent distress, lethargic EENT: other - On nasal cannula Cardiovascular: tachycardia Respiratory/Chest: decreased breath sounds Abdomen: distended Aashish Burgess MD Aug 20, 2020 13:01
--- NOTE | 2020-08-20 13:23 | Internal Med Progress Note ---
Subjective Physician Name Torres Saul Attending Physician Torres Saul MD Current Medications Medications (Trade) Dose Ordered Sig/Armand Route PRN Reason Start Time Stop Time Status Last Admin Dose Admin Acetaminophen (Tylenol) 650 mg Q6H PRN NG Mild Pain (Pain Scale 1-3) 08/08/20 14:00 09/07/20 13:59 08/13/20 17:02 Acetaminophen (Tylenol) 650 mg Q6H PRN NG Temp >100.5 08/08/20 14:00 09/07/20 13:59 Acetylcysteine (Mucomyst) 200 mg Q6HRT HHN 08/18/20 10:30 11/16/20 10:29 08/20/20 07:47 Albuterol/ Ipratropium (Albuterol/ Ipratropium) 3 ml Q4H PRN HHN Shortness of Breath 08/17/20 18:30 08/22/20 18:29 08/17/20 18:46 Albuterol/ Ipratropium (Albuterol/ Ipratropium) 3 ml Q6HRT HHN 08/18/20 10:30 08/23/20 10:29 08/20/20 07:47 Chlorhexidine Gluconate (Maddie-Hex 2%) 1 applic DAILY@2000 TOPIC 08/07/20 20:00 11/05/20 19:59 08/19/20 20:36 Dextrose/ Electrolytes 1,000 ml @ 50 mls/hr Q20H IV 08/18/20 15:00 09/17/20 14:59 08/20/20 05:06 Docusate Sodium (Colace) 100 mg EVERY 12 HOURS NG 08/13/20 21:00 09/11/20 17:59 08/19/20 20:36 Enoxaparin Sodium (Lovenox) 60 mg EVERY 12 HOURS SUBQ 08/05/20 21:00 11/03/20 20:59 08/20/20 09:18 Famotidine (Pepcid I.v.) 20 mg Q12HR IVP 08/06/20 11:00 09/05/20 10:59 08/20/20 09:16 Gabapentin (Neurontin) 300 mg EVERY 8 HOURS NG 08/08/20 22:00 09/04/20 08:59 08/17/20 14:36 Meropenem 1 gm/ Sodium Chloride 100 ml @ 200 mls/hr Q8HR IVPB 08/19/20 22:00 08/24/20 21:59 08/20/20 05:06 Methylprednisolone Sodium Succinate (Solu-MEDROL) 40 mg EVERY 12 HOURS IVP 08/20/20 21:00 11/18/20 20:59 Polyethylene Glycol (Miralax) 17 gm BEDTIME ORAL 08/12/20 21:00 09/11/20 20:59 08/19/20 20:36 Vancomycin HCl 250 ml @ 166.667 mls/hr Q8HR@0400,1200,2000 IVPB 08/19/20 20:00 08/24/20 19:59 08/20/20 12:30 Vancomycin HCl ([facility] pharmacy to dose) 1 ea DAILY PRN MISC Per rx protocol 08/19/20 16:30 09/18/20 16:29 Allergies: Coded Allergies: PENICILLINS (Verified Allergy, Unknown, 03/10/20) PHENYTOIN (Verified Allergy, Unknown, 03/10/20) Subjective awake, alert, responsive, NAD, talking more, WBC: 8.5, Was on BIPAP with 80% Fio2 yesterday but today on 3 liter NC and 96% sat. Objective Last Vital Signs Date Time Temp Pulse Resp B/P (MAP) Pulse Ox O2 Delivery O2 Flow Rate FiO2 08/20/20 12:00 Nasal Cannula 3.0 08/20/20 12:00 97.7 93 20 97/61 (73) 96 08/20/20 08:00 70 Laboratory Tests Test 08/20/20 04:55 White Blood Count 8.5 K/UL (4.8-10.8) Red Blood Count 2.79 M/UL (4.70-6.10) L Hemoglobin 7.6 G/DL (14.2-18.0) L Hematocrit 25.1 % (42.0-52.0) L Mean Corpuscular Volume 90 FL (80-99) Mean Corpuscular Hemoglobin 27.3 PG (27.0-31.0) Mean Corpuscular Hemoglobin Concent 30.3 G/DL (32.0-36.0) L Red Cell Distribution Width 15.4 % (11.6-14.8) H Platelet Count 196 K/UL (150-450) Mean Platelet Volume 6.2 FL (6.5-10.1) L Neutrophils (%) (Auto) % (45.0-75.0) Lymphocytes (%) (Auto) % (20.0-45.0) Monocytes (%) (Auto) % (1.0-10.0) Eosinophils (%) (Auto) % (0.0-3.0) Basophils (%) (Auto) % (0.0-2.0) Differential Total Cells Counted 100 Neutrophils % (Manual) 94 % (45-75) H Lymphocytes % (Manual) 5 % (20-45) L Monocytes % (Manual) 1 % (1-10) Eosinophils % (Manual) 0 % (0-3) Basophils % (Manual) 0 % (0-2) Band Neutrophils 0 % (0-8) Platelet Estimate Adequate Platelet Morphology Normal Hypochromasia 1+ Anisocytosis 1+ Sodium Level 142 MMOL/L (136-145) Potassium Level 3.8 MMOL/L (3.5-5.1) Chloride Level 104 MMOL/L (98-107) Carbon Dioxide Level 35 MMOL/L (21-32) H Anion Gap 3 mmol/L (5-15) L Blood Urea Nitrogen 14 mg/dL (7-18) Creatinine 0.6 MG/DL (0.55-1.30) Estimat Glomerular Filtration Rate > 60 mL/min (>60) Glucose Level 137 MG/DL (74-106) H Calcium Level 8.1 MG/DL (8.5-10.1) L Total Bilirubin 0.3 MG/DL (0.2-1.0) Aspartate Amino Transf (AST/SGOT) 24 U/L (15-37) Alanine Aminotransferase (ALT/SGPT) 43 U/L (12-78) Alkaline Phosphatase 39 U/L (46-116) L Total Protein 5.2 G/DL (6.4-8.2) L Albumin 2.5 G/DL (3.4-5.0) L Globulin 2.7 g/dL Albumin/Globulin Ratio 0.9 (1.0-2.7) L Intake and Output 08/19/20 08/20/20 19:00 07:00 Intake Total 550 ml 783.5 ml Output Total 1550 ml 700 ml Balance -1000 ml 83.5 ml IV Total 550 ml 783.5 ml Output Urine Total 1550 ml 700 ml # Bowel Movements 2 Objective GENERAL: He is well-developed, well-nourished male, awake, alert, responsive, HEENT: pupil equal reactive to the light, EOMI, NECK: Supple. No JVD. CHEST: Decreased air in the bases, no rales or wheezes. CARDIOVASCULAR: Regular rhythm and rate. S1-S2 are normal without murmurs, ABDOMEN: Soft, nontender, and nondistended. Positive bowel sounds. Obesity, EXTREMITIES: Negative for clubbing, cyanosis, or edema. RECTAL/GENITAL: Butler cath. NEUROLOGIC: CN2-12 intact, Motor 5/5 bilateral upper extremities, 2/5 Bilateral lower extremities, RUL Piccline. Assessment/Plan Assessment/Plan ASSESSMENT: This is an 79-year-old male with. 1. Acute Hypoxemic Respiratory failure-intubated --> Extubated. 2. Right-sided pneumonia. 3. Hypertension. 4. Congestive heart failure. 5. Chronic obstructive pulmonary disease. 6. Anemia. 7. Cerebrovascular disease, status post cerebrovascular accident. 8. Peripheral vascular disease. 9. Gastroesophageal reflux disease. 10. Major depression. 11. Seizure disorder. 12. History of COVID-19 positive in February 2020. 13. Benign prostatic hypertrophy. TREATMENT: 1. Acute hypoxemic Respiratory failure/right-sided pneumonia. A pulmonary consultation has been obtained with Dr. Micha Schneider. 2. Hypertension. 3. Congestive heart failure. 4. Chronic obstructive pulmonary disease. Continue DuoNeb as above. 5. Anemia. 6. Cerebrovascular disease. 7. Peripheral vascular disease. 8. Gastroesophageal reflux disease. Continue famotidine as above. 9. Major depression. Seizure disorder. 10. COVID-19 positive, history in February 2020. 11. Benign prostatic hypertrophy. Continue Flomax as above. Follow-up with laboratory and cultures. Antibiotics: Vancomycin IV, Meropenem IV Penicillin allergy DVT treatment: Lovenox 60 mg subcu twice a day Prednisone 20mg po daily. CODE STATUS: Full code. Torres Saul MD Aug 20, 2020 13:23
--- NOTE | 2020-08-20 14:36 | Diagnostic Imaging Report ---
Indication: Dyspnea Technique: One view of the chest Comparison: 08/18/2020 Findings: There is improved aeration of the right upper lobe, with markedly decreased atelectasis. There is increasing consolidation of the right lower lobe as well as increasing pleural fluid on the right. Left pleural effusion appears increased as well. PICC remains Impression: Markedly improved right upper lobe volume loss, over 2 days Increased right basilar consolidation Increased bilateral pleural effusions
[2020-08-20 16:00] VITALS: BP 100/51
--- NOTE | 2020-08-20 18:02 | NUR ---
NURSE NOTES: Patient said he could not produce sputum culture. Asked several times but he denied. Tried placing new IV on him but he refused.
--- NOTE | 2020-08-20 18:59 | NUR ---
NURSE HAND-OFF REPORT: Important Events on Shift:[Patient did not produce sputum culture. 4L nasal canula] Patient Status: [full code] Diet: [Regular pureed] Pending Orders: [] Pending Results/Labs:[] Pending MD notification:[] Latest Vital Signs: Temperature 98.4 , Pulse 83 , B/P 100 /51 , Respiratory Rate 22 , O2 SAT 96 , Venturi Mask, O2 Flow Rate 4.0 . Vital Sign Comment: [] EKG Rhythm: Sinus Rhythm Rhythm change?: N MD Notified?: - MD Response: Latest Castro Fall Score: 50 Fall Risk: High Risk Safety Measures: Call light Within Reach, Bed Alarm Zone 1, Side Rails Side Rails x3, Bed position Low and Locked. Fall Precautions: Yellow Socks Yellow Gown Door Sign Patient Fall Education Report given to [ION Pineda].
--- NOTE | 2020-08-20 19:00 | NUR ---
NURSE NOTES: Report received from ION Foreman with update. Upon assessment pt is awake, A/Ox1. PERRLA. Left sided weakness noted. Shaking of left leg noted. NSR on the monitor. Vitals WNL. Afebrile. Saturating 96% on 4L N/C. Per previous shift, pt removed left IV. Will attempt to reinsert during shift. Butler draining well to gravity. Will monitor.
[2020-08-20 20:00] VITALS: BP 113/72
--- NOTE | 2020-08-20 20:30 | NUR ---
NURSE NOTES: Sputum culture collected and sent to lab. Appears blood tinged. Pt moaning and but when asked if pt has pain, 0/10 pain per pt. Pt seen continuously removing Nasal Cannula then desaturates to 90%.
[2020-08-20] MEDS: Dyna-Hex 2% Top Sol 2oz TOPIC SCH (20:42)
[2020-08-20] MEDS: Miralax 17gm pkt ORAL SCH (20:50)
--- NOTE | 2020-08-20 22:45 | NUR ---
NURSE NOTES: No Gabapentin solution available in hospital; will request to change capsule and administer PO. Pt in stable condition.
[2020-08-20] MEDS: Vancomycin 1gm/D5W 275ml IVPB SCH ×2 (23:06)
[2020-08-21] VITALS: BP 106/44
[2020-08-21] MEDS: Albuterol/Ipratropium 3ml neb HHN SCH ×4 (00:38→19:12)
[2020-08-21] MEDS: Acetylcysteine 20% Soln 4ml HHN SCH ×4 (00:38→19:13)
[2020-08-21 04:00] VITALS: BP 104/74
--- NOTE | 2020-08-21 05:00 | NUR ---
NURSE NOTES: Pt appears to have labored breathing and SOB despite 2L N/C and 96% saturation. Kept pt on left side. Will order ABG for AM.
[2020-08-21] MEDS: Vancomycin 1gm/D5W 275ml IVPB SCH ×6 (06:11→23:00)
--- NOTE | 2020-08-21 07:25 | NUR ---
NURSE HAND-OFF REPORT: Important Events on Shift: BiPAP Patient Status: Stable Diet: Pending Orders: Pending Results/Labs: Pending MD notification: Latest Vital Signs: Temperature 97.4 , Pulse 86 , B/P 104 /74 , Respiratory Rate 30 , O2 SAT 96 , Venturi Mask, O2 Flow Rate 3.0 . Vital Sign Comment: EKG Rhythm: Sinus Rhythm Rhythm change?: N MD Notified?: - MD Response: Latest Castro Fall Score: 50 Fall Risk: High Risk Safety Measures: Call light Within Reach, Bed Alarm Zone 1, Side Rails Side Rails x3, Bed position Low and Locked. Fall Precautions: Yellow Socks Yellow Gown Door Sign Patient Fall Education Report given to ION Nichole.
--- NOTE | 2020-08-21 07:30 | NUR ---
NURSE NOTES: Received pt from ION Pineda, pt is awake and confused, pt has Bipap 14/8 FIO2 40%, Pt is on continues heart monitoring. pt has intact PICC LIBBY D5NS 20meq kcl 50ml/hr is running well. pt has Butler cath in place is working well. no complain of pain at this moment. All needs attended, bed is locked and is in the lowest position, call light within easy reach. will continue to monitor.
--- NOTE | 2020-08-21 07:30 | NUR ---
RESPIRATORY NOTE: Received pt on BIPAP 30/01 backup rate 14, 40% FiO2. Pt is awake and alert. Pt SpO2 96%. Respirations in 40s. RN aware. ABG to be drawn. Will continue to closely monitor.
--- NOTE | 2020-08-21 07:30 | NUR ---
RESPIRATORY NOTE: Received pt on BIPAP 30/01 backup rate 14, 40% FiO2. Pt is awake and alert. Pt SpO2 96%. Respirations in 40s. RN aware. BIPAP plugged into red outlet. Alarms are on and audible. ABG to be drawn. Will continue to closely monitor.
[2020-08-21 08:00] VITALS: BP 136/69
--- NOTE | 2020-08-21 08:25 | Pulmonology Progress Note ---
Subjective ROS Limited/Unobtainable: Yes Interval Events: Intubated 08/05/20; extubated 08/14/20; SOB last night -> back on BiPAP Constitutional: Reports: other - less sob, off bipap, alert, no pressors ; Denies: fever HEENT: Repors: no symptoms Respiratory: Reports: shortness of breath Cardiovascular: Reports: no symptoms Gastrointestinal/Abdominal: Denies: nausea, vomiting, diarrhea Genitourinary: Reports: no symptoms Neurologic: Reports: no symptoms Psychiatric: Reports: other - NA Skin: Denies: rash Musculoskeletal: Reports: other - NA Allergies: Coded Allergies: PENICILLINS (Verified Allergy, Unknown, 03/10/20) PHENYTOIN (Verified Allergy, Unknown, 03/10/20) Objective Last 24 Hour Vital Signs Date Time Temp Pulse Resp B/P (MAP) Pulse Ox O2 Delivery O2 Flow Rate FiO2 08/21/20 07:55 96 Bi-Pap 40 08/21/20 07:55 89 47 97 Bi-Pap 40 92 47 98 40 08/21/20 04:57 86 30 96 40 08/21/20 04:00 90 08/21/20 04:00 Nasal Cannula 3.0 08/21/20 04:00 97.4 83 18 104/74 (84) 98 08/21/20 04:00 4.0 08/21/20 00:39 88 20 99 Nasal Cannula 2.0 28 90 20 98 08/21/20 00:00 97.8 93 18 106/44 (64) 98 08/21/20 00:00 Nasal Cannula 3.0 08/21/20 00:00 4.0 08/20/20 20:09 94 22 97 Nasal Cannula 4.0 36 88 22 95 08/20/20 20:08 95 Nasal Cannula 4.0 36 08/20/20 20:00 92 08/20/20 20:00 98.2 97 18 113/72 (86) 95 08/20/20 20:00 Nasal Cannula 3.0 08/20/20 20:00 4.0 08/20/20 16:00 83 08/20/20 16:00 Nasal Cannula 3.0 08/20/20 16:00 4.0 08/20/20 16:00 98.4 89 22 100/51 (67) 96 08/20/20 14:13 91 24 96 Nasal Cannula 2.0 28 89 24 95 08/20/20 12:00 Nasal Cannula 3.0 08/20/20 12:00 97.7 93 20 97/61 (73) 96 08/20/20 11:47 93 08/20/20 08:50 3.0 Intake and Output 08/20/20 08/21/20 19:00 07:00 Intake Total 410 ml 1048.708 ml Output Total 800 ml 900 ml Balance -390 ml 148.708 ml Intake Oral 360 ml 200 ml IV Total 50 ml 848.708 ml Output Urine Total 800 ml 900 ml # Bowel Movements 1 4 General Appearance: no acute distress HEENT: normocephalic Respiratory: chest wall non-tender, lungs clear Cardiovascular: normal peripheral pulses, normal rate Abdomen: normal bowel sounds Extremities: no cyanosis Laboratory Tests 08/20/20 18:40: Vancomycin Level Trough 22.4H Current Medications Medications (Trade) Dose Ordered Sig/Armand Route PRN Reason Start Time Stop Time Status Last Admin Dose Admin Acetaminophen (Tylenol) 650 mg Q6H PRN NG Mild Pain (Pain Scale 1-3) 08/08/20 14:00 09/07/20 13:59 08/13/20 17:02 Acetaminophen (Tylenol) 650 mg Q6H PRN NG Temp >100.5 08/08/20 14:00 09/07/20 13:59 Acetylcysteine (Mucomyst) 200 mg Q6HRT HHN 08/18/20 10:30 11/16/20 10:29 08/21/20 07:55 Albuterol/ Ipratropium (Albuterol/ Ipratropium) 3 ml Q4H PRN HHN Shortness of Breath 08/17/20 18:30 08/22/20 18:29 08/17/20 18:46 Albuterol/ Ipratropium (Albuterol/ Ipratropium) 3 ml Q6HRT HHN 08/18/20 10:30 08/23/20 10:29 08/21/20 07:55 Chlorhexidine Gluconate (Maddie-Hex 2%) 1 applic DAILY@2000 TOPIC 08/07/20 20:00 11/05/20 19:59 08/20/20 20:42 Dextrose/ Electrolytes 1,000 ml @ 50 mls/hr Q20H IV 08/18/20 15:00 09/17/20 14:59 08/21/20 05:34 Docusate Sodium (Colace) 100 mg EVERY 12 HOURS NG 08/13/20 21:00 09/11/20 17:59 08/19/20 20:36 Enoxaparin Sodium (Lovenox) 60 mg EVERY 12 HOURS SUBQ 08/05/20 21:00 11/03/20 20:59 08/20/20 20:46 Famotidine (Pepcid) 20 mg Q12H ORAL 08/20/20 21:00 11/18/20 20:59 08/20/20 20:50 Gabapentin (Neurontin) 300 mg THREE TIMES A DAY ORAL 08/20/20 22:00 09/19/20 21:59 08/20/20 22:53 Meropenem 1 gm/ Sodium Chloride 100 ml @ 200 mls/hr Q8HR IVPB 08/19/20 22:00 08/24/20 21:59 08/21/20 05:34 Methylprednisolone Sodium Succinate (Solu-MEDROL) 40 mg EVERY 12 HOURS IVP 08/20/20 21:00 11/18/20 20:59 08/20/20 20:43 Polyethylene Glycol (Miralax) 17 gm BEDTIME ORAL 08/12/20 21:00 09/11/20 20:59 08/19/20 20:36 Vancomycin HCl ([facility] pharmacy to dose) 1 ea DAILY PRN MISC Per rx protocol 08/19/20 16:30 09/18/20 16:29 Vancomycin HCl 1 gm/Dextrose 275 ml @ 183.708 mls/hr Q8H IVPB 08/20/20 23:00 08/25/20 22:59 08/21/20 06:11 Assessment/Plan Assessment/Plan 1. UTI -s/p empiric antibiotics -Follow-up UCx negative (08/03) 2. Pneumonia -s/p broad-spectrum antibiotics - CXR concerning for volume loss; latest CXR shows RUL atelectasis - CT chest shows dense RUL and RML consolidation - High suspicion for RBI narrowing ; no obvious endobronchial narrowing noted on bronchoscopy - CXR (08/18) New/increased right upper lobe infiltrate and atelectasis 3. COPD exacerbation -Now extubated 4. Respiratory distress - Was on 3L NC yesterday; SOB last night -> back on BiPAP 30% FiO2, will check ABG and attempt weaning - will taper steroid - added HHN with mucomyst and duonebs - intensified pulm hygiene with VEST and CPT 5. History of seizures -Risk of aspiration -Monitor for seizure activity 6. Elevated CRP -D-dimer wnl -His outpatient medications include Eliquis (hx of A fib?) - Continue Eliquis The care for this patient was discussed with my supervising physician Time spent for this case was approximately 31 minutes Edwin Beckham Aug 21, 2020 08:25
--- NOTE | 2020-08-21 08:35 | NUR ---
RESPIRATORY NOTE: Took pt on BIPAP and placed in 5L Nasal Cannula to eat. SpO2 97% on NC. ABG drawn. Pt to remain on NC as tolerated throughout the day per Bhavani CHURCHILL. Bhavani CHURCHILL bedside. RN made aware. Will continue to closely monitor. Addendum: 08/21/20 at 0906 by Gely Phillips, RT Correction Took pt *off BIPAP @3145.
[2020-08-21] MEDS: Docusate 100mg/10ml Liq NG SCH ×2 (08:49→21:00)
[2020-08-21] MEDS: Solu-MEDROL 40mg Inj IVP SCH ×2 (08:49→21:00)
[2020-08-21] MEDS: Enoxaparin 60mg Inj SUBQ SCH ×2 (08:50→21:00)
--- NOTE | 2020-08-21 09:09 | NUR ---
NURSE NOTES: KERLINE Beckham visited pt and is aware ABG stated put pt on 5lit NC, Noted and carried out. will continue to close monitoring.
--- NOTE | 2020-08-21 10:27 | Cardiac Electrophysiology PN ---
Assessment/Plan Assessment/Plan 1. Respiratory failure. On IV antibiotic. Extubated 08/14/20 Echo showed EF 50%. On 3 liter NC and 96% sat. 2. Questionable congestive heart failure. EF normal and BNP is only 39. 3. S/P Septic shock, off Levo 4. History of COVID pneumonia, status post vaccination for COVID. Currently on IV antibiotic and prednisone. Now off isolation 5. DVT on Eliquis 2.5 mg b.i.d. Currently in SR 6. Full Code Subjective Subjective In SDU extubated 08/14/20 Off BIPAP since yesterday on 3 liter NC and 96% saturation Objective Last 24 Hour Vital Signs Date Time Temp Pulse Resp B/P (MAP) Pulse Ox O2 Delivery O2 Flow Rate FiO2 08/21/20 08:35 97 Nasal Cannula 5.0 40 08/21/20 08:00 97.3 92 25 136/69 (91) 97 08/21/20 08:00 5.0 08/21/20 07:55 96 Bi-Pap 40 08/21/20 07:55 89 47 97 Bi-Pap 40 92 47 98 40 08/21/20 07:42 90 08/21/20 04:57 86 30 96 40 08/21/20 04:00 90 08/21/20 04:00 Nasal Cannula 3.0 08/21/20 04:00 97.4 83 18 104/74 (84) 98 08/21/20 04:00 4.0 08/21/20 00:39 88 20 99 Nasal Cannula 2.0 28 90 20 98 08/21/20 00:00 97.8 93 18 106/44 (64) 98 08/21/20 00:00 Nasal Cannula 3.0 08/21/20 00:00 4.0 08/20/20 20:09 94 22 97 Nasal Cannula 4.0 36 88 22 95 08/20/20 20:08 95 Nasal Cannula 4.0 36 08/20/20 20:00 92 08/20/20 20:00 98.2 97 18 113/72 (86) 95 08/20/20 20:00 Nasal Cannula 3.0 08/20/20 20:00 4.0 08/20/20 16:00 83 08/20/20 16:00 Nasal Cannula 3.0 08/20/20 16:00 4.0 08/20/20 16:00 98.4 89 22 100/51 (67) 96 08/20/20 14:13 91 24 96 Nasal Cannula 2.0 28 89 24 95 08/20/20 12:00 Nasal Cannula 3.0 08/20/20 12:00 97.7 93 20 97/61 (73) 96 08/20/20 11:47 93 Intake and Output 08/20/20 08/21/20 19:00 07:00 Intake Total 410 ml 1048.708 ml Output Total 800 ml 900 ml Balance -390 ml 148.708 ml Intake Oral 360 ml 200 ml IV Total 50 ml 848.708 ml Output Urine Total 800 ml 900 ml # Bowel Movements 1 4 Laboratory Tests Test 08/20/20 18:40 08/21/20 08:32 Vancomycin Level Trough 22.4 ug/mL (5.0-12.0) H Arterial Blood pH 7.424 (7.350-7.450) Arterial Blood Partial Pressure CO2 53.0 mmHg (35.0-45.0) H Arterial Blood Partial Pressure O2 74.7 mmHg (75.0-100.0) L Arterial Blood HCO3 33.9 mmol/L (22.0-26.0) H Arterial Blood Oxygen Saturation 94.3 % (95-100) L Arterial Blood Base Excess 8.5 (-2-2) H Chadwick Test Positive Objective HEAD AND NECK: No JVD on BIPAP LUNGS: Coarse rhonchi. CARDIOVASCULAR: Regular S1 and S2 with no gallop. ABDOMEN: Soft. EXTREMITIES: 1 plus pitting edema. Devyn Magdaleno MD Aug 21, 2020 10:27
--- NOTE | 2020-08-21 10:45 | Surgery Progress Note ---
Surgery Progress Note Subjective Additional Comments afebrile, HD stable labs improved cxr improved swallow picc tpa Objective Last 24 Hour Vital Signs Date Time Temp Pulse Resp B/P (MAP) Pulse Ox O2 Delivery O2 Flow Rate FiO2 08/21/20 08:35 97 Nasal Cannula 5.0 40 08/21/20 08:00 Nasal Cannula 4.0 08/21/20 08:00 97.3 92 25 136/69 (91) 97 08/21/20 08:00 5.0 08/21/20 07:55 96 Bi-Pap 40 08/21/20 07:55 89 47 97 Bi-Pap 40 92 47 98 40 08/21/20 07:42 90 08/21/20 04:57 86 30 96 40 08/21/20 04:00 90 08/21/20 04:00 Nasal Cannula 3.0 08/21/20 04:00 97.4 83 18 104/74 (84) 98 08/21/20 04:00 4.0 08/21/20 00:39 88 20 99 Nasal Cannula 2.0 28 90 20 98 08/21/20 00:00 97.8 93 18 106/44 (64) 98 08/21/20 00:00 Nasal Cannula 3.0 08/21/20 00:00 4.0 08/20/20 20:09 94 22 97 Nasal Cannula 4.0 36 88 22 95 08/20/20 20:08 95 Nasal Cannula 4.0 36 08/20/20 20:00 92 08/20/20 20:00 98.2 97 18 113/72 (86) 95 08/20/20 20:00 Nasal Cannula 3.0 08/20/20 20:00 4.0 08/20/20 16:00 83 08/20/20 16:00 Nasal Cannula 3.0 08/20/20 16:00 4.0 08/20/20 16:00 98.4 89 22 100/51 (67) 96 08/20/20 14:13 91 24 96 Nasal Cannula 2.0 28 89 24 95 08/20/20 12:00 Nasal Cannula 3.0 08/20/20 12:00 97.7 93 20 97/61 (73) 96 08/20/20 11:47 93 I&O Intake and Output 08/20/20 08/21/20 19:00 07:00 Intake Total 410 ml 1048.708 ml Output Total 800 ml 900 ml Balance -390 ml 148.708 ml Intake Oral 360 ml 200 ml IV Total 50 ml 848.708 ml Output Urine Total 800 ml 900 ml # Bowel Movements 1 4 Cardiovascular: RSR Respiratory: decreased breath sounds Abdomen: soft, non-tender, present bowel sounds, non-distended Extremities: no tenderness, no cyanosis Laboratory Tests Test 08/20/20 18:40 08/21/20 08:32 Vancomycin Level Trough 22.4 ug/mL (5.0-12.0) H Arterial Blood pH 7.424 (7.350-7.450) Arterial Blood Partial Pressure CO2 53.0 mmHg (35.0-45.0) H Arterial Blood Partial Pressure O2 74.7 mmHg (75.0-100.0) L Arterial Blood HCO3 33.9 mmol/L (22.0-26.0) H Arterial Blood Oxygen Saturation 94.3 % (95-100) L Arterial Blood Base Excess 8.5 (-2-2) H Chadwick Test Positive Plan Problems: (1) Abdominal distension Assessment & Plan: 79M abdominal distention, respiratory decline, altered mental status. on exam noted abd soft, mild distended, non tender. no n/v/f/c. unlikely aspiration. non tender one exam. pending urine and covid test. no acute surgical intervention. hold on ct. kub ordered. will follow with exam and recs. keep npo for now. iv fluids. respiratory pulm support. will follow with recs thank you decline since admission now intubated ng tube to suction no acute surgical intervention cont abx kub noted wean vent enema when stable improved tolerating diet cont diet no n/v labs okay The rectum is considerably distended with stool. Considerable stool is also seen in the descending colon. The colon is diffusely gas filled, upper limits of normal in caliber. No significant small bowel gas demonstrated. No masses or unusual calcifications. The included lung bases demonstrate bilateral right greater than left pleural effusions. There is a Butler catheter Impression: Distended stool-filled rectum, fecal impaction possible Gas-filled upper limits of normal caliber colon, nonspecific Bilateral right greater than left pleural effusions (2) UTI (urinary tract infection) (3) Pneumonia (4) Multiple pulmonary nodules (5) Respiratory failure with hypoxia Assessment & Plan: cont weaning (6) Pneumonia due to COVID-19 virus (7) History of CVA (cerebrovascular accident) (8) COPD (chronic obstructive pulmonary disease) (9) HTN (hypertension) (10) Hx of prostatic malignancy (11) Major depression (12) Seizure disorder Destin Brown Aug 21, 2020 10:45
[2020-08-21 12:00] VITALS: BP 122/78
--- NOTE | 2020-08-21 13:25 | Nephrology Progress Note ---
Assessment/Plan Problem List: (1) Oliguria (2) Electrolyte imbalance (3) Pneumonia (4) Respiratory failure with hypoxia (5) Pneumonia due to COVID-19 virus (6) Seizure disorder (7) Anemia Assessment Sepsis, respiratory failure Pneumonia and possible aspiration. Questionable COVID-19 infection UTI Abnormal electrolytes Questionable CHF Anemia Plan August 21: Patient confused. O2 with nasal cannula. Labs reviewed. Renal parameters stable. Full code. Continue as is. Continue per consultants. August 20: Patient on oxygen with nasal cannula. Labs reviewed. Renal parameters stable. Remains full code. Continue per pulmonary and other consultants. August 19: Patient on BiPAP. Labs reviewed. Abnormal electrolytes addressed. Patient full code. Continue to monitor ABG and renal parameters. Continue per consultants. August 18: Patient's clinical condition deteriorated. Back on BiPAP. Mental status down. Cannot take p.o. Will give potassium IV. Patient remains full code. Continue per biometrician. Hypotonic IV fluid changed to isotonic August 17: Continues to tolerate extubation. Not in any distress and verbal. Labs reviewed. Low potassium addressed. Patient full code. Medication list reviewed. Continue per consultants. August 16: Post extubation. Tolerating well. Labs reviewed. Low potassium addressed. Continue per consultants. Stable from renal standpoint of view. Full code. August 15: Patient extubated on oxygen with cannula. Variable asking for coffee. Renal parameters stable. Continue per consultants. August 14: Status unchanged. Remains full code, intubated, on ventilator, FiO2 of 40%. Labs reviewed. Renal parameters stable. Hemoglobin lower. Suggest transfusion. August 13: Status quo. Remains full code, intubated, on FiO2 of 40%. Labs reviewed. Renal parameters stable. Continue per consultants. August 12: Intubated on ventilator. FiO2 40% unchanged. Full code. Labs reviewed. Renal parameters stable. Continue per consultants. August 11: Intubated on ventilator. O2 40%. Full code. Medication list reviewed. Labs reviewed. Stable from renal standpoint of view. Continue per consultants. August 10: Status quo. Intubated on ventilator. FiO2 remains 40%. Renal parameters stable. Continue per current management. Potassium and phosphorus supplement given August 09: Full code. Intubated on ventilator. FiO2 40%. Labs reviewed. Stable from renal standpoint of view. August 08: Labs reviewed. Renal parameters stable. Abnormal electrolytes addressed. Remains full code. FiO2 50%. Continue per consultants. Discussed with RN. August 07: Labs reviewed. K Phos IV given. Patient intubated. Full code. FiO2 60%. Medication list reviewed. Continue per consultants. Previously: Optimize pulmonary status Optimize cardiac status Monitor renal parameters, urine output, electrolytes Change IV to half-normal saline Anemia mansfield Insert NG tube and start feeding Per orders Subjective ROS Limited/Unobtainable: Yes Objective Objective Last 24 Hour Vital Signs Date Time Temp Pulse Resp B/P (MAP) Pulse Ox O2 Delivery O2 Flow Rate FiO2 08/21/20 12:00 Nasal Cannula 4.0 08/21/20 12:00 97.7 93 24 122/78 (93) 98 08/21/20 12:00 5.0 08/21/20 11:45 91 08/21/20 08:35 97 Nasal Cannula 5.0 40 08/21/20 08:00 Nasal Cannula 4.0 08/21/20 08:00 97.3 92 25 136/69 (91) 97 08/21/20 08:00 5.0 08/21/20 07:55 96 Bi-Pap 40 08/21/20 07:55 89 47 97 Bi-Pap 40 92 47 98 40 08/21/20 07:42 90 08/21/20 04:57 86 30 96 40 08/21/20 04:00 90 08/21/20 04:00 Nasal Cannula 3.0 08/21/20 04:00 97.4 83 18 104/74 (84) 98 08/21/20 04:00 4.0 08/21/20 00:39 88 20 99 Nasal Cannula 2.0 28 90 20 98 08/21/20 00:00 97.8 93 18 106/44 (64) 98 08/21/20 00:00 Nasal Cannula 3.0 08/21/20 00:00 4.0 08/20/20 20:09 94 22 97 Nasal Cannula 4.0 36 88 22 95 08/20/20 20:08 95 Nasal Cannula 4.0 36 08/20/20 20:00 92 08/20/20 20:00 98.2 97 18 113/72 (86) 95 08/20/20 20:00 Nasal Cannula 3.0 08/20/20 20:00 4.0 08/20/20 16:00 83 08/20/20 16:00 Nasal Cannula 3.0 08/20/20 16:00 4.0 08/20/20 16:00 98.4 89 22 100/51 (67) 96 08/20/20 14:13 91 24 96 Nasal Cannula 2.0 28 89 24 95 Intake and Output 08/20/20 08/21/20 19:00 07:00 Intake Total 410 ml 1098.708 ml Output Total 800 ml 900 ml Balance -390 ml 198.708 ml Intake Oral 360 ml 200 ml IV Total 50 ml 898.708 ml Output Urine Total 800 ml 900 ml # Bowel Movements 1 4 Laboratory Tests 08/20/20 18:40: Vancomycin Level Trough 22.4H 08/21/20 08:32: Arterial Blood pH 7.424, Arterial Blood Partial Pressure CO2 53.0H, Arterial Blood Partial Pressure O2 74.7L, Arterial Blood HCO3 33.9H, Arterial Blood Oxygen Saturation 94.3L, Arterial Blood Base Excess 8.5H, Chadwick Test Positive Height (Feet): 6 Height (Inches): 1.00 Weight (Pounds): 190 General Appearance: no apparent distress, lethargic EENT: other - On nasal cannula Cardiovascular: tachycardia Respiratory/Chest: decreased breath sounds Abdomen: distended Aashish Burgess MD Aug 21, 2020 13:25
--- NOTE | 2020-08-21 14:02 | Internal Med Progress Note ---
Subjective Physician Name Torres Saul Attending Physician Torres Saul MD Current Medications Medications (Trade) Dose Ordered Sig/Armand Route PRN Reason Start Time Stop Time Status Last Admin Dose Admin Acetaminophen (Tylenol) 650 mg Q6H PRN NG Mild Pain (Pain Scale 1-3) 08/08/20 14:00 09/07/20 13:59 08/13/20 17:02 Acetaminophen (Tylenol) 650 mg Q6H PRN NG Temp >100.5 08/08/20 14:00 09/07/20 13:59 Acetylcysteine (Mucomyst) 200 mg Q6HRT HHN 08/18/20 10:30 11/16/20 10:29 08/21/20 13:41 Albuterol/ Ipratropium (Albuterol/ Ipratropium) 3 ml Q4H PRN HHN Shortness of Breath 08/17/20 18:30 08/22/20 18:29 08/17/20 18:46 Albuterol/ Ipratropium (Albuterol/ Ipratropium) 3 ml Q6HRT HHN 08/18/20 10:30 08/23/20 10:29 08/21/20 13:41 Chlorhexidine Gluconate (Maddie-Hex 2%) 1 applic DAILY@2000 TOPIC 08/07/20 20:00 11/05/20 19:59 08/20/20 20:42 Dextrose/ Electrolytes 1,000 ml @ 50 mls/hr Q20H IV 08/18/20 15:00 09/17/20 14:59 08/21/20 05:34 Docusate Sodium (Colace) 100 mg EVERY 12 HOURS NG 08/13/20 21:00 09/11/20 17:59 08/21/20 08:49 Enoxaparin Sodium (Lovenox) 60 mg EVERY 12 HOURS SUBQ 08/05/20 21:00 11/03/20 20:59 08/21/20 08:50 Famotidine (Pepcid) 20 mg Q12H ORAL 08/20/20 21:00 11/18/20 20:59 08/21/20 08:51 Gabapentin (Neurontin) 300 mg THREE TIMES A DAY ORAL 08/20/20 22:00 09/19/20 21:59 08/21/20 13:13 Meropenem 1 gm/ Sodium Chloride 100 ml @ 200 mls/hr Q8HR IVPB 08/19/20 22:00 08/24/20 21:59 08/21/20 13:13 Methylprednisolone Sodium Succinate (Solu-MEDROL) 40 mg EVERY 12 HOURS IVP 08/20/20 21:00 11/18/20 20:59 08/21/20 08:49 Polyethylene Glycol (Miralax) 17 gm BEDTIME ORAL 08/12/20 21:00 09/11/20 20:59 08/19/20 20:36 Vancomycin HCl (Vanco pharmacy to dose) 1 ea DAILY PRN MISC Per rx protocol 08/19/20 16:30 09/18/20 16:29 Vancomycin HCl 1 gm/Dextrose 275 ml @ 183.708 mls/hr Q8H IVPB 08/20/20 23:00 08/25/20 22:59 08/21/20 06:11 Allergies: Coded Allergies: PENICILLINS (Verified Allergy, Unknown, 03/10/20) PHENYTOIN (Verified Allergy, Unknown, 03/10/20) Subjective In PCU, awake, alert, responsive, NAD, on 3 liter NC.. Objective Last Vital Signs Date Time Temp Pulse Resp B/P (MAP) Pulse Ox O2 Delivery O2 Flow Rate FiO2 08/21/20 12:00 Nasal Cannula 4.0 08/21/20 12:00 97.7 93 24 122/78 (93) 98 08/21/20 08:35 40 Laboratory Tests Test 08/20/20 18:40 08/21/20 08:32 Vancomycin Level Trough 22.4 ug/mL (5.0-12.0) H Arterial Blood pH 7.424 (7.350-7.450) Arterial Blood Partial Pressure CO2 53.0 mmHg (35.0-45.0) H Arterial Blood Partial Pressure O2 74.7 mmHg (75.0-100.0) L Arterial Blood HCO3 33.9 mmol/L (22.0-26.0) H Arterial Blood Oxygen Saturation 94.3 % (95-100) L Arterial Blood Base Excess 8.5 (-2-2) H Chadwick Test Positive Microbiology Date/Time Source Procedure Growth Status 08/20/20 17:00 Sputum Induced Gram Stain - Final Resulted 08/20/20 17:00 Sputum Induced Sputum Culture Pending Resulted Intake and Output 08/20/20 08/21/20 19:00 07:00 Intake Total 410 ml 1098.708 ml Output Total 800 ml 900 ml Balance -390 ml 198.708 ml Intake Oral 360 ml 200 ml IV Total 50 ml 898.708 ml Output Urine Total 800 ml 900 ml # Bowel Movements 1 4 Objective GENERAL: He is well-developed, well-nourished male, awake, alert, responsive, HEENT: pupil equal reactive to the light, EOMI, NECK: Supple. No JVD. CHEST: Decreased air in the bases, no rales or wheezes. CARDIOVASCULAR: Regular rhythm and rate. S1-S2 are normal without murmurs, ABDOMEN: Soft, nontender, and nondistended. Positive bowel sounds. Obesity, EXTREMITIES: Negative for clubbing, cyanosis, or edema. RECTAL/GENITAL: Butler cath. NEUROLOGIC: CN2-12 intact, Motor 5/5 bilateral upper extremities, 2/5 Bilateral lower extremities, RUL Piccline. Assessment/Plan Assessment/Plan 1. Acute Hypoxemic Respiratory failure-intubated --> Extubated. 2. Right-sided pneumonia. 3. Hypertension. 4. Congestive heart failure. 5. Chronic obstructive pulmonary disease. 6. Anemia. 7. Cerebrovascular disease, status post cerebrovascular accident. 8. Peripheral vascular disease. 9. Gastroesophageal reflux disease. 10. Major depression. 11. Seizure disorder. 12. History of COVID-19 positive in February 2020. 13. Benign prostatic hypertrophy. TREATMENT: 1. Acute hypoxemic Respiratory failure/right-sided pneumonia. A pulmonary consultation has been obtained with Dr. Micha Schneider. 2. Hypertension. 3. Congestive heart failure. 4. Chronic obstructive pulmonary disease. Continue DuoNeb as above. 5. Anemia. 6. Cerebrovascular disease. 7. Peripheral vascular disease. 8. Gastroesophageal reflux disease. Continue famotidine as above. 9. Major depression. Seizure disorder. 10. COVID-19 positive, history in February 2020. 11. Benign prostatic hypertrophy. Continue Flomax as above. Follow-up with laboratory and cultures. Antibiotics: Vancomycin IV, Meropenem IV Penicillin allergy DVT treatment: Lovenox 60 mg subcu twice a day Prednisone 20mg po daily. CODE STATUS: Full code. Torres Saul MD Aug 21, 2020 14:02
[2020-08-21 16:00] VITALS: BP 103/69
--- NOTE | 2020-08-21 17:15 | Infectious Diseases Prog Note ---
Assessment/Plan Assessment/Plan ASSESSMENT AND PLAN: 1. new infiltrate/atx on chest x-ray, ? new aspiration pna/hcap - sob, on bipap, copd hx sirs, leukocytosis, fevers, s/p tx for pna, visual manager blood cultures - s/p tx, ? contaminant vs bacteremia mrsa colonization patient with picc covid-19 testing negative - vancomycin and meropenem, steroids - f/u on labs and chest x-ray, sputum culture pending - bipap, chest PT, breathing treatments, pulmonary f/u - d/w RN - off pressors - leukocytosis better, no fevers 2. covid-19 testing negative - isolation removed 3. Patient is on steroids for copd 4. aspiration precautions, pulmonary f/u 5. cou care 6. Blood pressure support. 7. Hypertension. 8. CHF. 9. COPD. 10. Prostate cancer. 11. Anemia. 12. CVA. 13. Aspiration risk. 14. Peripheral vascular disease. 15. GERD. 16. Seizures. 17. Depression. 18. History of COVID infection in February 2020. 19. Continue treatment per primary consultants. 20. Orders were noted and entered. 21. Skin care protocol. 22. Allergies to penicillin and phenytoin. 23. Social history is negative. 24. Family history is noncontributory. 25. MAR is noted. 26. Case was discussed with RN. Subjective Constitutional: Reports: fatigue; Denies: fever HEENT: Denies: congestion Respiratory: Denies: shortness of breath Cardiovascular: Denies: chest pain Gastrointestinal/Abdominal: Denies: nausea, vomiting, diarrhea Genitourinary: Reports: other - + foe Neurologic: Reports: weakness Skin: Denies: rash Hematologic: Denies: bleeding Musculoskeletal: Denies: pain Allergies: Coded Allergies: PENICILLINS (Verified Allergy, Unknown, 03/10/20) PHENYTOIN (Verified Allergy, Unknown, 03/10/20) Objective Last 24 Hour Vital Signs Date Time Temp Pulse Resp B/P (MAP) Pulse Ox O2 Delivery O2 Flow Rate FiO2 08/21/20 16:06 4.0 08/21/20 16:00 5.0 08/21/20 16:00 97.5 91 22 103/69 (80) 99 08/21/20 16:00 Nasal Cannula 4.0 08/21/20 15:43 91 08/21/20 13:51 84 28 98 Nasal Cannula 5.0 40 78 28 96 08/21/20 12:00 Nasal Cannula 4.0 08/21/20 12:00 97.7 93 24 122/78 (93) 98 08/21/20 12:00 5.0 08/21/20 11:45 91 08/21/20 08:35 97 Nasal Cannula 5.0 40 08/21/20 08:00 Nasal Cannula 4.0 08/21/20 08:00 97.3 92 25 136/69 (91) 97 08/21/20 08:00 5.0 08/21/20 07:55 96 Bi-Pap 40 08/21/20 07:55 89 47 97 Bi-Pap 40 92 47 98 40 08/21/20 07:42 90 08/21/20 04:57 86 30 96 40 08/21/20 04:00 90 08/21/20 04:00 Nasal Cannula 3.0 08/21/20 04:00 97.4 83 18 104/74 (84) 98 08/21/20 04:00 4.0 08/21/20 00:39 88 20 99 Nasal Cannula 2.0 28 90 20 98 08/21/20 00:00 97.8 93 18 106/44 (64) 98 08/21/20 00:00 Nasal Cannula 3.0 08/21/20 00:00 4.0 08/20/20 20:09 94 22 97 Nasal Cannula 4.0 36 88 22 95 08/20/20 20:08 95 Nasal Cannula 4.0 36 08/20/20 20:00 92 08/20/20 20:00 98.2 97 18 113/72 (86) 95 08/20/20 20:00 Nasal Cannula 3.0 08/20/20 20:00 4.0 Height (Feet): 6 Height (Inches): 1.00 Weight (Pounds): 190 General Appearance: no acute distress HEENT: normocephalic, atraumatic, anicteric, mucous membranes moist Respiratory/Chest: crackles/rales, rhonchi - bilaterally Cardiovascular: normal rate, regular rhythm, no gallop/murmur Abdomen: normal bowel sounds, soft, non tender, no organomegaly, non distended Genitourinary: other - + bee Extremities: no cyanosis Skin: no rash Neurologic/Psychiatric: educational specialist II-XII 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 Considerable right upper lobe atelectatic changes. COPD changes A few areas of atelectasis and possibly some consolidation is seen in the left lung Small right pleural fluid Evidence of old granulomatous disease 3 mm mm noncalcified nodule in the right middle lobe, not definitely evident previously. Recommend short interval 6 to 12 month follow-up CT scan Dilated right main pulmonary artery, indicative of pulmonary arterial hypertension Satisfactory endotracheal intubation Cholelithiasis Chest x-ray - 08/06/20 - Procedure: XRAY Chest 1v Indication: Abnormal chest sounds Technique: One view of the chest Comparison: 08/05/2020 Findings: Stable satisfactory the position of endotracheal tube. There is developing atelectasis in the right upper lung. There is persistent pleural fluid on the right and increasing parenchymal consolidation. Left lung pleural space remain clear. The heart size is normal Impression: Increasing right upper lobe atelectasis and right lung infiltrate. Unchanged right pleural effusion Chest x-ray - 08/09/20 Procedure: XRAY Chest 1v EXAM: XR Chest, 1 View CLINICAL HISTORY: INFECT TECHNIQUE: Frontal view of the chest. COMPARISON: Chest radiograph August 06, 2020. FINDINGS/IMPRESSION: Stable endotracheal tube. Opacity within the right lower lung field consistent with infiltrate, which is mild improving. Mild-moderate pleural effusion which is mildly worsening. No pneumothorax. The heart size is within normal limit. Calcified, tortuous aorta. Chest x-ray - 08/11/20 - IMPRESSION: No change in bibasilar infiltrate and small bilateral effusions. Endotracheal tube and NG tube remain in place. Chest x-ray - 08/13/20- Procedure: XRAY Chest 1v Procedure: XRAY Chest 1v Reason for study: Shortness of breath. Comparison films: 08/11/2020. FINDINGS: Endotracheal tube, NG tube and right PICC line imaging in place. Vascularity is normal. Basilar infiltrates and small effusions are unchanged. Cardiac and mediastinal silhouette are within normal limits. The bony thorax appear unremarkable. IMPRESSION: NO SIGNIFICANT CHANGE COMPARED TO PREVIOUS EXAM. Chest x-ray - 08/14/20 - Procedure: XRAY Chest 1v Procedure: XRAY Chest 1v Reason for study: Reason For Exam: SOB Comparison films: 08/13/2020. FINDINGS: Radiograph is underexposed. Endotracheal tube and NG tube remain in place . Bilateral infiltrates and small effusions unchanged. Cardiac and mediastinal silhouette are within normal limits. The bony thorax appear unremarkable. IMPRESSION: NO SIGNIFICANT CHANGE COMPARED TO PREVIOUS EXAM. Chest x-ray - 08/18/20 - Procedure: XRAY Chest 1v Indication: Cough Technique: One view of the chest Comparison: 08/17/2020 Findings: There is increasing atelectasis and consolidation of the right upper lobe. Infiltrates versus chronic changes of the mid and lower lungs are again demonstrated. Right arm PICC remains. Right midlung and left lung emphysematous changes are stable. Right-sided pleural effusion persists, unchanged. Impression: New/increased right upper lobe infiltrate and atelectasis Chest x-ray - 08/20/20 - Procedure: XRAY Chest 1v Indication: Dyspnea Technique: One view of the chest Comparison: 08/18/2020 Findings: There is improved aeration of the right upper lobe, with markedly decreased atelectasis. There is increasing consolidation of the right lower lobe as well as increasing pleural fluid on the right. Left pleural effusion appears increased as well. PICC remains Impression: Markedly improved right upper lobe volume loss, over 2 days Increased right basilar consolidation Increased bilateral pleural effusions Microbiology Date/Time Source Procedure Growth Status 08/20/20 17:00 Sputum Induced Gram Stain - Final Resulted 08/20/20 17:00 Sputum Induced Sputum Culture Pending Resulted Labs Test 08/19/20 03:11 08/20/20 04:55 08/20/20 18:40 08/21/20 08:32 White Blood Count 9.5 K/UL (4.8-10.8) 8.5 K/UL (4.8-10.8) Red Blood Count 3.41 M/UL (4.70-6.10) 2.79 M/UL (4.70-6.10) Hemoglobin 9.1 G/DL (14.2-18.0) 7.6 G/DL (14.2-18.0) Hematocrit 30.5 % (42.0-52.0) 25.1 % (42.0-52.0) Mean Corpuscular Volume 89 FL (80-99) 90 FL (80-99) Mean Corpuscular Hemoglobin 26.6 PG (27.0-31.0) 27.3 PG (27.0-31.0) Mean Corpuscular Hemoglobin Concent 29.8 G/DL (32.0-36.0) 30.3 G/DL (32.0-36.0) Red Cell Distribution Width 14.8 % (11.6-14.8) 15.4 % (11.6-14.8) Platelet Count 218 K/UL (150-450) 196 K/UL (150-450) Mean Platelet Volume 5.6 FL (6.5-10.1) 6.2 FL (6.5-10.1) Neutrophils (%) (Auto) % (45.0-75.0) % (45.0-75.0) Lymphocytes (%) (Auto) % (20.0-45.0) % (20.0-45.0) Monocytes (%) (Auto) % (1.0-10.0) % (1.0-10.0) Eosinophils (%) (Auto) % (0.0-3.0) % (0.0-3.0) Basophils (%) (Auto) % (0.0-2.0) % (0.0-2.0) Differential Total Cells Counted 100 100 Neutrophils % (Manual) 85 % (45-75) 94 % (45-75) Lymphocytes % (Manual) 5 % (20-45) 5 % (20-45) Monocytes % (Manual) 7 % (1-10) 1 % (1-10) Eosinophils % (Manual) 0 % (0-3) 0 % (0-3) Basophils % (Manual) 0 % (0-2) 0 % (0-2) Band Neutrophils 3 % (0-8) 0 % (0-8) Platelet Estimate Adequate Adequate Platelet Morphology Normal Normal Red Blood Cell Morphology Normal Sodium Level 139 MMOL/L (136-145) 142 MMOL/L (136-145) Potassium Level 4.0 MMOL/L (3.5-5.1) 3.8 MMOL/L (3.5-5.1) Chloride Level 100 MMOL/L (98-107) 104 MMOL/L (98-107) Carbon Dioxide Level 36 MMOL/L (21-32) 35 MMOL/L (21-32) Anion Gap 3 mmol/L (5-15) 3 mmol/L (5-15) Blood Urea Nitrogen 11 mg/dL (7-18) 14 mg/dL (7-18) Creatinine 0.6 MG/DL (0.55-1.30) 0.6 MG/DL (0.55-1.30) Estimat Glomerular Filtration Rate > 60 mL/min (>60) > 60 mL/min (>60) Glucose Level 150 MG/DL (74-106) 137 MG/DL (74-106) Calcium Level 8.7 MG/DL (8.5-10.1) 8.1 MG/DL (8.5-10.1) Phosphorus Level 2.1 MG/DL (2.5-4.9) Magnesium Level 2.0 MG/DL (1.8-2.4) Total Bilirubin 0.5 MG/DL (0.2-1.0) 0.3 MG/DL (0.2-1.0) Aspartate Amino Transf (AST/SGOT) 28 U/L (15-37) 24 U/L (15-37) Alanine Aminotransferase (ALT/SGPT) 45 U/L (12-78) 43 U/L (12-78) Alkaline Phosphatase 48 U/L (46-116) 39 U/L (46-116) C-Reactive Protein, Quantitative 6.0 mg/dL (0.00-0.90) Total Protein 5.9 G/DL (6.4-8.2) 5.2 G/DL (6.4-8.2) Albumin 2.8 G/DL (3.4-5.0) 2.5 G/DL (3.4-5.0) Globulin 3.1 g/dL 2.7 g/dL Albumin/Globulin Ratio 0.9 (1.0-2.7) 0.9 (1.0-2.7) Hypochromasia 1+ Anisocytosis 1+ Vancomycin Level Trough 22.4 ug/mL (5.0-12.0) Arterial Blood pH 7.424 (7.350-7.450) Arterial Blood Partial Pressure CO2 53.0 mmHg (35.0-45.0) Arterial Blood Partial Pressure O2 74.7 mmHg (75.0-100.0) Arterial Blood HCO3 33.9 mmol/L (22.0-26.0) Arterial Blood Oxygen Saturation 94.3 % (95-100) Arterial Blood Base Excess 8.5 (-2-2) Chadwick Test Positive Laboratory Tests Test 08/20/20 18:40 08/21/20 08:32 Vancomycin Level Trough 22.4 ug/mL (5.0-12.0) H Arterial Blood pH 7.424 (7.350-7.450) Arterial Blood Partial Pressure CO2 53.0 mmHg (35.0-45.0) H Arterial Blood Partial Pressure O2 74.7 mmHg (75.0-100.0) L Arterial Blood HCO3 33.9 mmol/L (22.0-26.0) H Arterial Blood Oxygen Saturation 94.3 % (95-100) L Arterial Blood Base Excess 8.5 (-2-2) H Chadiwck Test Positive Current Medications Medications (Trade) Dose Ordered Sig/Armand Route PRN Reason Start Time Stop Time Status Last Admin Dose Admin Acetaminophen (Tylenol) 650 mg Q6H PRN NG Mild Pain (Pain Scale 1-3) 08/08/20 14:00 09/07/20 13:59 08/13/20 17:02 Acetaminophen (Tylenol) 650 mg Q6H PRN NG Temp >100.5 08/08/20 14:00 09/07/20 13:59 Acetylcysteine (Mucomyst) 200 mg Q6HRT HHN 08/18/20 10:30 11/16/20 10:29 08/21/20 13:41 Albuterol/ Ipratropium (Albuterol/ Ipratropium) 3 ml Q4H PRN HHN Shortness of Breath 08/17/20 18:30 08/22/20 18:29 08/17/20 18:46 Albuterol/ Ipratropium (Albuterol/ Ipratropium) 3 ml Q6HRT HHN 08/18/20 10:30 08/23/20 10:29 08/21/20 13:41 Chlorhexidine Gluconate (Maddie-Hex 2%) 1 applic DAILY@2000 TOPIC 08/07/20 20:00 11/05/20 19:59 08/20/20 20:42 Dextrose/ Electrolytes 1,000 ml @ 50 mls/hr Q20H IV 08/18/20 15:00 09/17/20 14:59 08/21/20 05:34 Docusate Sodium (Colace) 100 mg EVERY 12 HOURS NG 08/13/20 21:00 09/11/20 17:59 08/21/20 08:49 Enoxaparin Sodium (Lovenox) 60 mg EVERY 12 HOURS SUBQ 08/05/20 21:00 11/03/20 20:59 08/21/20 08:50 Famotidine (Pepcid) 20 mg Q12H ORAL 08/20/20 21:00 11/18/20 20:59 08/21/20 08:51 Gabapentin (Neurontin) 300 mg THREE TIMES A DAY ORAL 08/20/20 22:00 09/19/20 21:59 08/21/20 13:13 Meropenem 1 gm/ Sodium Chloride 100 ml @ 200 mls/hr Q8HR IVPB 08/19/20 22:00 08/24/20 21:59 08/21/20 13:13 Methylprednisolone Sodium Succinate (Solu-MEDROL) 40 mg EVERY 12 HOURS IVP 08/20/20 21:00 11/18/20 20:59 08/21/20 08:49 Polyethylene Glycol (Miralax) 17 gm BEDTIME ORAL 08/12/20 21:00 09/11/20 20:59 08/19/20 20:36 Vancomycin HCl (Vanco pharmacy to dose) 1 ea DAILY PRN MISC Per rx protocol 08/19/20 16:30 09/18/20 16:29 Vancomycin HCl 1 gm/Dextrose 275 ml @ 183.708 mls/hr Q8H IVPB 08/20/20 23:00 08/25/20 22:59 08/21/20 14:07 Kemar Nichole MD Aug 21, 2020 17:15
--- NOTE | 2020-08-21 18:53 | NUR ---
Speech Note (Dysphagia Rx) CBC: 8.5/7.6/25.1/196 Electrolytes: 142/3.8/104/35/14/0.6/137 ABG on 5 liter: 7.42/53/74/33.9/8.5/94 Vital Signs: Temp: 97.5, Pulse 84~91, RR 22~28, BP: 103/69, SPO2 96~99 on 4 liter Daily CXR: from 08/17~today, to me improved in right lung field consolidation, so much better from 08/06/2020. S: Mr. Robert is much alert and coherent. He is able to carry out conversation. O: 1. Oral mucosa: The mucosa of palate is coagulopathic without any active bleeding. Spots of erythema with blood is seen. His laryngeal quality is wet consists with secretion. His voice is smoker's voice without any hoarseness. Given him pureed and thin liquid, he tolerated well without overt s.s of aspiration. A: 1. Remains stable and functional oropharyngeal motility and swallow function 2. Recovering from septic shock may related to aspiration P: 1. PO diet with pureed and thin liquid 2. Aspiration precaution -May consider esophagram in the future Beth Knight
--- NOTE | 2020-08-21 19:20 | NUR ---
Received report from ION Downs and assumed care of patient.
[2020-08-21 20:00] VITALS: BP 119/75
[2020-08-21] MEDS: Dyna-Hex 2% Top Sol 2oz TOPIC SCH (20:00)
--- NOTE | 2020-08-21 20:30 | NUR ---
Assessment complete, patient in NAD, however, does get very SOB with any movement. Pt also SOB at rest. O2 saturation is good on 4lpm NC. Pt lung sounds are rhonchorous throughout. See assessment for further details. VSS. Repositioned and oral care provided. Medications administered by crushing and administering via apple sauce. Tolerated well without coughing or other concerns. Will continue to monitor the patient.
[2020-08-21] MEDS: Miralax 17gm pkt ORAL SCH (21:00)
--- NOTE | 2020-08-21 22:30 | NUR ---
Pt placed on BIPAP for the evening by RT within the last hour. Patient was SOB and restless as well as dropping his O2 saturation. Pt was repositioned and appears comfortable and in NAD on the Bipap. Will continue to monitor the patient.
[2020-08-22] VITALS: BP 155/58
--- NOTE | 2020-08-22 00:30 | NUR ---
Midnight assessment completed. VSS, pt in NAD, repositioned patient. PICC line is very positional and did not work when the patient was supine repositioned back onto L side with hand i thermal cutter assistance.
[2020-08-22] MEDS: Acetylcysteine 20% Soln 4ml HHN SCH ×4 (00:58→19:02)
[2020-08-22] MEDS: Albuterol/Ipratropium 3ml neb HHN SCH ×4 (00:58→19:02)
[2020-08-22 04:00] VITALS: BP 112/73
--- NOTE | 2020-08-22 04:26 | NUR ---
0400 assessment completed, see charting for details. Pt in NAD and VSS. Pt remains on Bipap and appears comfortable. Will continue to monitor.
--- NOTE | 2020-08-22 06:35 | NUR ---
Pt had moderate sized BM, linen changed and patient cleansed. Pt repositioned and in NAD. Placed onto NC @2lpm and off of BIPAP around 0545 this am and tolerating well. Will continue to monitor.
[2020-08-22] MEDS: Vancomycin 1gm/D5W 275ml IVPB SCH ×4 (06:46→15:00)
--- NOTE | 2020-08-22 07:15 | NUR ---
Report given to ION Shah who assumed care of patient.
--- NOTE | 2020-08-22 07:20 | NUR ---
NURSE NOTES: Received report from ION Simeon. Patient is AOx3 in bed, asleep at this time. No pain or discomfort noted at this time. Patient on 4L NC satting at 95%, breathing is even and unlabored with no signs of respiratory distress. Bed in lowest position, locked with side rails x2 up. Call light within reach.
[2020-08-22 07:32] LABS: HEMATOCRIT 27.3 % (42.0-52.0); HEMOGLOBIN 8.5 G/DL (14.2-18.0); LYMPHOCYTES % (AUTO) 8.2 % (20.0-45.0); MEAN CORPUSCULAR VOLUME 88 FL (80-99); MONOCYTES % (AUTO) 8.3 % (1.0-10.0); NEUTROPHILS % (AUTO) 82.5 % (45.0-75.0); PLATELET COUNT 180 K/UL (150-450); RED BLOOD COUNT 3.09 M/UL (4.70-6.10); WHITE BLOOD COUNT 11.6 K/UL (4.8-10.8)
[2020-08-22 07:47] LABS: ALANINE AMINOTRANSFERASE 41 U/L (12-78); ALBUMIN 2.9 G/DL (3.4-5.0); ALBUMIN/GLOBULIN RATIO 0.9 (1.0-2.7); ALKALINE PHOSPHATASE 48 U/L (46-116); ANION GAP 4 mmol/L (5-15); ASPARTATE AMINO TRANSFERASE 19 U/L (15-37); BILIRUBIN,TOTAL 0.7 MG/DL (0.2-1.0); BLOOD UREA NITROGEN 9 mg/dL (7-18); CALCIUM 8.9 MG/DL (8.5-10.1); CARBON DIOXIDE 37 MMOL/L (21-32); CHLORIDE 104 MMOL/L (98-107); CREATININE 0.7 MG/DL (0.55-1.30); PHOSPHORUS 2.2 MG/DL (2.5-4.9); POTASSIUM 4.4 MMOL/L (3.5-5.1); SODIUM 145 MMOL/L (136-145)
[2020-08-22 08:00] VITALS: BP 115/60
[2020-08-22] MEDS: Solu-MEDROL 40mg Inj IVP SCH (08:06)
[2020-08-22] MEDS: Docusate 100mg/10ml Liq NG SCH ×2 (08:07→20:02)
[2020-08-22] MEDS: Enoxaparin 60mg Inj SUBQ SCH ×2 (08:08→20:03)
[2020-08-22] MEDS ORDERED: Tubing IV Secondary IV ONE (10:06)
--- NOTE | 2020-08-22 10:33 | Surgery Progress Note ---
Surgery Progress Note Subjective Additional Comments leukocytosis comfortable no n/v labs noted Objective Last 24 Hour Vital Signs Date Time Temp Pulse Resp B/P (MAP) Pulse Ox O2 Delivery O2 Flow Rate FiO2 08/22/20 08:00 4.0 08/22/20 08:00 98 08/22/20 08:00 97.8 89 18 115/60 (78) 96 08/22/20 08:00 Bi-pap 08/22/20 06:52 88 20 100 Nasal Cannula 3.0 32 89 20 97 08/22/20 06:51 98 Nasal Cannula 3.0 36 08/22/20 04:00 97.9 90 112/73 (86) 08/22/20 04:00 Bi-pap 08/22/20 04:00 35 08/22/20 04:00 91 08/22/20 03:04 92 33 98 35 08/22/20 01:13 93 28 100 Bi-Pap 35 08/22/20 00:58 91 27 100 Bi-Pap 35 08/22/20 00:58 91 27 100 35 08/22/20 00:00 35 08/22/20 00:00 99 08/22/20 00:00 Bi-pap 08/22/20 00:00 97.0 104 155/58 (90) 08/21/20 23:32 100 33 96 35 08/21/20 21:40 102 38 93 35 08/21/20 20:00 Nasal Cannula 4.0 08/21/20 20:00 97.5 92 26 119/75 (90) 97 08/21/20 20:00 102 08/21/20 19:28 97 22 99 Nasal Cannula 3.0 32 08/21/20 19:13 94 20 99 Nasal Cannula 3.0 32 08/21/20 19:13 99 Nasal Cannula 3.0 36 08/21/20 16:06 4.0 08/21/20 16:00 5.0 08/21/20 16:00 97.5 91 22 103/69 (80) 99 08/21/20 16:00 Nasal Cannula 4.0 08/21/20 15:43 91 08/21/20 13:51 84 28 98 Nasal Cannula 5.0 40 78 28 96 08/21/20 12:00 Nasal Cannula 4.0 08/21/20 12:00 97.7 93 24 122/78 (93) 98 08/21/20 12:00 5.0 08/21/20 11:45 91 I&O Intake and Output 08/21/20 08/22/20 19:00 07:00 Intake Total 1095.000 ml 200 ml Output Total 1000 ml 2100 ml Balance 95.000 ml -1900 ml Intake Oral 120 ml 50 ml IV Total 975.000 ml 150 ml Output Urine Total 1000 ml 2100 ml # Bowel Movements 1 1 Dressing: saturated Cardiovascular: RSR Respiratory: decreased breath sounds Abdomen: soft, flat, non-tender, present bowel sounds, non-distended Extremities: no edema, no tenderness, no cyanosis Laboratory Tests Test 08/22/20 07:00 White Blood Count 11.6 K/UL (4.8-10.8) H Red Blood Count 3.09 M/UL (4.70-6.10) L Hemoglobin 8.5 G/DL (14.2-18.0) L Hematocrit 27.3 % (42.0-52.0) L Mean Corpuscular Volume 88 FL (80-99) Mean Corpuscular Hemoglobin 27.5 PG (27.0-31.0) Mean Corpuscular Hemoglobin Concent 31.2 G/DL (32.0-36.0) L Red Cell Distribution Width 15.0 % (11.6-14.8) H Platelet Count 180 K/UL (150-450) Mean Platelet Volume 6.1 FL (6.5-10.1) L Neutrophils (%) (Auto) 82.5 % (45.0-75.0) H Lymphocytes (%) (Auto) 8.2 % (20.0-45.0) L Monocytes (%) (Auto) 8.3 % (1.0-10.0) Eosinophils (%) (Auto) 0.0 % (0.0-3.0) Basophils (%) (Auto) 1.0 % (0.0-2.0) Sodium Level 145 MMOL/L (136-145) Potassium Level 4.4 MMOL/L (3.5-5.1) Chloride Level 104 MMOL/L (98-107) Carbon Dioxide Level 37 MMOL/L (21-32) H Anion Gap 4 mmol/L (5-15) L Blood Urea Nitrogen 9 mg/dL (7-18) Creatinine 0.7 MG/DL (0.55-1.30) Estimat Glomerular Filtration Rate > 60 mL/min (>60) Glucose Level 136 MG/DL (74-106) H Calcium Level 8.9 MG/DL (8.5-10.1) Phosphorus Level 2.2 MG/DL (2.5-4.9) L Magnesium Level 2.0 MG/DL (1.8-2.4) Total Bilirubin 0.7 MG/DL (0.2-1.0) Aspartate Amino Transf (AST/SGOT) 19 U/L (15-37) Alanine Aminotransferase (ALT/SGPT) 41 U/L (12-78) Alkaline Phosphatase 48 U/L (46-116) C-Reactive Protein, Quantitative 1.9 mg/dL (0.00-0.90) H Total Protein 6.0 G/DL (6.4-8.2) L Albumin 2.9 G/DL (3.4-5.0) L Globulin 3.1 g/dL Albumin/Globulin Ratio 0.9 (1.0-2.7) L Plan Problems: (1) Abdominal distension Assessment & Plan: 79M abdominal distention, respiratory decline, altered mental status. on exam noted abd soft, mild distended, non tender. no n/v/f/c. unlikely aspiration. non tender one exam. pending urine and covid test. no acute surgical intervention. hold on ct. kub ordered. will follow with exam and recs. keep npo for now. iv fluids. respiratory pulm support. will follow with recs thank you decline since admission now intubated ng tube to suction no acute surgical intervention cont abx kub noted wean vent enema when stable improved tolerating diet cont diet no n/v labs okay The rectum is considerably distended with stool. Considerable stool is also seen in the descending colon. The colon is diffusely gas filled, upper limits of normal in caliber. No significant small bowel gas demonstrated. No masses or unusual calcifications. The included lung bases demonstrate bilateral right greater than left pleural effusions. There is a Butler catheter Impression: Distended stool-filled rectum, fecal impaction possible Gas-filled upper limits of normal caliber colon, nonspecific Bilateral right greater than left pleural effusions (2) UTI (urinary tract infection) (3) Pneumonia (4) Multiple pulmonary nodules (5) Respiratory failure with hypoxia Assessment & Plan: cont weaning (6) Pneumonia due to COVID-19 virus (7) History of CVA (cerebrovascular accident) (8) COPD (chronic obstructive pulmonary disease) (9) HTN (hypertension) (10) Hx of prostatic malignancy (11) Major depression (12) Seizure disorder Destin Brown Aug 22, 2020 10:33
[2020-08-22] MEDS ORDERED: NS 275ml ONE (11:21)
[2020-08-22] MEDS ORDERED: D5 1/2NS 1000ml IV ONE (11:21)
--- NOTE | 2020-08-22 11:26 | Pulmonology Progress Note ---
Subjective ROS Limited/Unobtainable: Yes Interval Events: Doing well on nasal O2 Constitutional: Reports: fatigue; Denies: fever HEENT: Repors: no symptoms Respiratory: Reports: shortness of breath Cardiovascular: Reports: no symptoms Gastrointestinal/Abdominal: Denies: nausea, vomiting, diarrhea Genitourinary: Reports: no symptoms Neurologic: Reports: no symptoms Psychiatric: Reports: other - NA Skin: Denies: rash Musculoskeletal: Denies: pain Allergies: Coded Allergies: PENICILLINS (Verified Allergy, Unknown, 03/10/20) PHENYTOIN (Verified Allergy, Unknown, 03/10/20) Objective Last 24 Hour Vital Signs Date Time Temp Pulse Resp B/P (MAP) Pulse Ox O2 Delivery O2 Flow Rate FiO2 08/22/20 08:00 4.0 08/22/20 08:00 98 08/22/20 08:00 97.8 89 18 115/60 (78) 96 08/22/20 08:00 Bi-pap 08/22/20 06:52 88 20 100 Nasal Cannula 3.0 32 89 20 97 08/22/20 06:51 98 Nasal Cannula 3.0 36 08/22/20 04:00 97.9 90 112/73 (86) 08/22/20 04:00 Bi-pap 08/22/20 04:00 35 08/22/20 04:00 91 08/22/20 03:04 92 33 98 35 08/22/20 01:13 93 28 100 Bi-Pap 35 08/22/20 00:58 91 27 100 Bi-Pap 35 08/22/20 00:58 91 27 100 35 08/22/20 00:00 35 08/22/20 00:00 99 08/22/20 00:00 Bi-pap 08/22/20 00:00 97.0 104 155/58 (90) 08/21/20 23:32 100 33 96 35 08/21/20 21:40 102 38 93 35 08/21/20 20:00 Nasal Cannula 4.0 08/21/20 20:00 97.5 92 26 119/75 (90) 97 08/21/20 20:00 102 08/21/20 19:28 97 22 99 Nasal Cannula 3.0 32 08/21/20 19:13 94 20 99 Nasal Cannula 3.0 32 08/21/20 19:13 99 Nasal Cannula 3.0 36 08/21/20 16:06 4.0 08/21/20 16:00 5.0 08/21/20 16:00 97.5 91 22 103/69 (80) 99 08/21/20 16:00 Nasal Cannula 4.0 08/21/20 15:43 91 08/21/20 13:51 84 28 98 Nasal Cannula 5.0 40 78 28 96 08/21/20 12:00 Nasal Cannula 4.0 08/21/20 12:00 97.7 93 24 122/78 (93) 98 08/21/20 12:00 5.0 08/21/20 11:45 91 Intake and Output 08/21/20 08/22/20 19:00 07:00 Intake Total 1095.000 ml 200 ml Output Total 1000 ml 2100 ml Balance 95.000 ml -1900 ml Intake Oral 120 ml 50 ml IV Total 975.000 ml 150 ml Output Urine Total 1000 ml 2100 ml # Bowel Movements 1 1 Objective Off BiPAP General Appearance: no acute distress HEENT: normocephalic Respiratory: chest wall non-tender, lungs clear Cardiovascular: normal peripheral pulses, normal rate Abdomen: normal bowel sounds Extremities: no cyanosis Microbiology Date/Time Source Procedure Growth Status 08/20/20 17:00 Sputum Induced Gram Stain - Final Resulted 08/20/20 17:00 Sputum Culture - Preliminary Staphylococcus Aureus Resulted Laboratory Tests 08/22/20 07:00: White Blood Count 11.6H, Red Blood Count 3.09L, Hemoglobin 8.5L, Hematocrit 27.3 L, Mean Corpuscular Volume 88, Mean Corpuscular Hemoglobin 27.5, Mean Corpuscular Hemoglobin Concent 31.2L, Red Cell Distribution Width 15.0H, Platelet Count 180, Mean Platelet Volume 6.1L, Neutrophils (%) (Auto) 82.5H, Lymphocytes (%) (Auto) 8.2L, Monocytes (%) (Auto) 8.3, Eosinophils (%) (Auto) 0.0, Basophils (%) (Auto) 1.0, Sodium Level 145, Potassium Level 4.4, Chloride Level 104, Carbon Dioxide Level 37H, Anion Gap 4L, Blood Urea Nitrogen 9, Creatinine 0.7, Estimat Glomerular Filtration Rate > 60, Glucose Level 136H, Calcium Level 8.9, Phosphorus Level 2.2L, Magnesium Level 2.0, Total Bilirubin 0.7, Aspartate Amino Transf (AST/SGOT) 19, Alanine Aminotransferase (ALT/SGPT) 41, Alkaline Phosphatase 48, C-Reactive Protein, Quantitative 1.9H, Total Protein 6.0L, Albumin 2.9L, Globulin 3.1, Albumin/Globulin Ratio 0.9L Current Medications Medications (Trade) Dose Ordered Sig/Armand Route PRN Reason Start Time Stop Time Status Last Admin Dose Admin Acetaminophen (Tylenol) 650 mg Q6H PRN NG Mild Pain (Pain Scale 1-3) 08/08/20 14:00 09/07/20 13:59 08/13/20 17:02 Acetaminophen (Tylenol) 650 mg Q6H PRN NG Temp >100.5 08/08/20 14:00 09/07/20 13:59 Acetylcysteine (Mucomyst) 200 mg Q6HRT HHN 08/18/20 10:30 11/16/20 10:29 08/22/20 06:48 Albuterol/ Ipratropium (Albuterol/ Ipratropium) 3 ml Q4H PRN HHN Shortness of Breath 08/17/20 18:30 08/22/20 18:29 08/17/20 18:46 Albuterol/ Ipratropium (Albuterol/ Ipratropium) 3 ml Q6HRT HHN 08/18/20 10:30 08/23/20 10:29 08/22/20 06:48 Chlorhexidine Gluconate (Maddie-Hex 2%) 1 applic DAILY@2000 TOPIC 08/07/20 20:00 11/05/20 19:59 08/21/20 20:00 Dextrose/ Electrolytes 1,000 ml @ 50 mls/hr Q20H IV 08/18/20 15:00 09/17/20 14:59 08/22/20 03:00 Docusate Sodium (Colace) 100 mg EVERY 12 HOURS NG 08/13/20 21:00 09/11/20 17:59 08/22/20 08:07 Enoxaparin Sodium (Lovenox) 60 mg EVERY 12 HOURS SUBQ 08/05/20 21:00 11/03/20 20:59 08/22/20 08:08 Famotidine (Pepcid) 20 mg Q12H ORAL 08/20/20 21:00 11/18/20 20:59 08/22/20 08:09 Gabapentin (Neurontin) 300 mg THREE TIMES A DAY ORAL 08/20/20 22:00 09/19/20 21:59 08/22/20 08:06 Meropenem 1 gm/ Sodium Chloride 100 ml @ 200 mls/hr Q8HR IVPB 08/19/20 22:00 08/24/20 21:59 08/22/20 06:00 Methylprednisolone Sodium Succinate (Solu-MEDROL) 40 mg EVERY 12 HOURS IVP 08/20/20 21:00 11/18/20 20:59 08/22/20 08:06 Polyethylene Glycol (Miralax) 17 gm BEDTIME ORAL 08/12/20 21:00 09/11/20 20:59 08/19/20 20:36 Vancomycin HCl (Vanco pharmacy to dose) 1 ea DAILY PRN MISC Per rx protocol 08/19/20 16:30 09/18/20 16:29 Vancomycin HCl 1 gm/Dextrose 275 ml @ 183.708 mls/hr Q8H IVPB 08/20/20 23:00 08/25/20 22:59 08/22/20 06:46 Assessment/Plan Assessment/Plan 1. UTI -s/p empiric antibiotics -Follow-up UCx negative (08/03) 2. Pneumonia -s/p broad-spectrum antibiotics - CXR concerning for volume loss; latest CXR shows RUL atelectasis - CT chest shows dense RUL and RML consolidation - High suspicion for RBI narrowing ; no obvious endobronchial narrowing noted on bronchoscopy - CXR (08/18) New/increased right upper lobe infiltrate and atelectasis 3. COPD exacerbation -Now extubated 4. Respiratory distress - Doing well off BiPAP; on nasal O2 - will taper steroid - continue HHN 5. History of seizures -Risk of aspiration -Monitor for seizure activity 6. Elevated CRP -D-dimer wnl -His outpatient medications include Eliquis (hx of A fib?) - Continue Eliquis (Patient was seen earlier today. Signature timestamp does not reflect patient encounter time) Micha Amezquita MD, MD Aug 22, 2020 11:26
[2020-08-22 12:00] VITALS: BP 105/71
--- NOTE | 2020-08-22 13:43 | Cardiac Electrophysiology PN ---
Assessment/Plan Assessment/Plan 1. Respiratory failure. On IV antibiotic. Extubated 08/14/20 Echo showed EF 50%. On 3 liter NC 2. Questionable congestive heart failure. EF normal and BNP is only 39. 3. S/P Septic shock, off Levo 4. History of COVID pneumonia, status post vaccination for COVID. Currently on IV antibiotic and prednisone. Now off isolation 5. DVT on Eliquis 2.5 mg b.i.d. 6. Full Code Subjective Subjective In SDU extubated 08/14/20 On 3 liter NC Getting nebulizer treatment Objective Last 24 Hour Vital Signs Date Time Temp Pulse Resp B/P (MAP) Pulse Ox O2 Delivery O2 Flow Rate FiO2 08/22/20 13:03 95 20 100 Nasal Cannula 3.0 32 94 20 100 08/22/20 12:00 97.7 89 20 105/71 (82) 98 08/22/20 12:00 4.0 08/22/20 12:00 Bi-pap 08/22/20 12:00 91 08/22/20 08:00 4.0 08/22/20 08:00 98 08/22/20 08:00 97.8 89 18 115/60 (78) 96 08/22/20 08:00 Bi-pap 08/22/20 06:52 88 20 100 Nasal Cannula 3.0 32 89 20 97 08/22/20 06:51 98 Nasal Cannula 3.0 36 08/22/20 04:00 97.9 90 112/73 (86) 08/22/20 04:00 Bi-pap 08/22/20 04:00 35 08/22/20 04:00 91 08/22/20 03:04 92 33 98 35 08/22/20 01:13 93 28 100 Bi-Pap 35 08/22/20 00:58 91 27 100 Bi-Pap 35 08/22/20 00:58 91 27 100 35 08/22/20 00:00 35 08/22/20 00:00 99 08/22/20 00:00 Bi-pap 08/22/20 00:00 97.0 104 155/58 (90) 08/21/20 23:32 100 33 96 35 08/21/20 21:40 102 38 93 35 08/21/20 20:00 Nasal Cannula 4.0 08/21/20 20:00 97.5 92 26 119/75 (90) 97 08/21/20 20:00 102 08/21/20 19:28 97 22 99 Nasal Cannula 3.0 32 08/21/20 19:13 94 20 99 Nasal Cannula 3.0 32 08/21/20 19:13 99 Nasal Cannula 3.0 36 08/21/20 16:06 4.0 08/21/20 16:00 5.0 08/21/20 16:00 97.5 91 22 103/69 (80) 99 08/21/20 16:00 Nasal Cannula 4.0 08/21/20 15:43 91 08/21/20 13:51 84 28 98 Nasal Cannula 5.0 40 78 28 96 Intake and Output 08/21/20 08/22/20 19:00 07:00 Intake Total 1095.000 ml 200 ml Output Total 1000 ml 2100 ml Balance 95.000 ml -1900 ml Intake Oral 120 ml 50 ml IV Total 975.000 ml 150 ml Output Urine Total 1000 ml 2100 ml # Bowel Movements 1 1 Laboratory Tests Test 08/22/20 07:00 White Blood Count 11.6 K/UL (4.8-10.8) H Red Blood Count 3.09 M/UL (4.70-6.10) L Hemoglobin 8.5 G/DL (14.2-18.0) L Hematocrit 27.3 % (42.0-52.0) L Mean Corpuscular Volume 88 FL (80-99) Mean Corpuscular Hemoglobin 27.5 PG (27.0-31.0) Mean Corpuscular Hemoglobin Concent 31.2 G/DL (32.0-36.0) L Red Cell Distribution Width 15.0 % (11.6-14.8) H Platelet Count 180 K/UL (150-450) Mean Platelet Volume 6.1 FL (6.5-10.1) L Neutrophils (%) (Auto) 82.5 % (45.0-75.0) H Lymphocytes (%) (Auto) 8.2 % (20.0-45.0) L Monocytes (%) (Auto) 8.3 % (1.0-10.0) Eosinophils (%) (Auto) 0.0 % (0.0-3.0) Basophils (%) (Auto) 1.0 % (0.0-2.0) Sodium Level 145 MMOL/L (136-145) Potassium Level 4.4 MMOL/L (3.5-5.1) Chloride Level 104 MMOL/L (98-107) Carbon Dioxide Level 37 MMOL/L (21-32) H Anion Gap 4 mmol/L (5-15) L Blood Urea Nitrogen 9 mg/dL (7-18) Creatinine 0.7 MG/DL (0.55-1.30) Estimat Glomerular Filtration Rate > 60 mL/min (>60) Glucose Level 136 MG/DL (74-106) H Calcium Level 8.9 MG/DL (8.5-10.1) Phosphorus Level 2.2 MG/DL (2.5-4.9) L Magnesium Level 2.0 MG/DL (1.8-2.4) Total Bilirubin 0.7 MG/DL (0.2-1.0) Aspartate Amino Transf (AST/SGOT) 19 U/L (15-37) Alanine Aminotransferase (ALT/SGPT) 41 U/L (12-78) Alkaline Phosphatase 48 U/L (46-116) C-Reactive Protein, Quantitative 1.9 mg/dL (0.00-0.90) H Total Protein 6.0 G/DL (6.4-8.2) L Albumin 2.9 G/DL (3.4-5.0) L Globulin 3.1 g/dL Albumin/Globulin Ratio 0.9 (1.0-2.7) L Microbiology Date/Time Source Procedure Growth Status 08/20/20 17:00 Sputum Induced Gram Stain - Final Resulted 08/20/20 17:00 Sputum Culture - Preliminary Staphylococcus Aureus Resulted Objective HEAD AND NECK: No JVD on BIPAP LUNGS: Coarse rhonchi. CARDIOVASCULAR: Regular S1 and S2 with no gallop. ABDOMEN: Soft. EXTREMITIES: 1 plus pitting edema. Devyn Magdaleno MD Aug 22, 2020 13:43
--- NOTE | 2020-08-22 14:17 | Nephrology Progress Note ---
Assessment/Plan Problem List: (1) Oliguria (2) Electrolyte imbalance (3) Pneumonia (4) Respiratory failure with hypoxia (5) Pneumonia due to COVID-19 virus (6) Seizure disorder (7) Anemia Assessment Sepsis, respiratory failure Pneumonia and possible aspiration. Questionable COVID-19 infection UTI Abnormal electrolytes Questionable CHF Anemia Plan August 22: Lethargic. Periodically on BiPAP alternate with O2 cannula. Labs reviewed. Renal parameters stable. Patient is full code. Abnormal electrolytes addressed. Continue as is. August 21: Patient confused. O2 with nasal cannula. Labs reviewed. Renal parameters stable. Full code. Continue as is. Continue per consultants. August 20: Patient on oxygen with nasal cannula. Labs reviewed. Renal parameters stable. Remains full code. Continue per pulmonary and other consultants. August 19: Patient on BiPAP. Labs reviewed. Abnormal electrolytes addressed. Patient full code. Continue to monitor ABG and renal parameters. Continue per consultants. August 18: Patient's clinical condition deteriorated. Back on BiPAP. Mental status down. Cannot take p.o. Will give potassium IV. Patient remains full code. Continue per special tester. Hypotonic IV fluid changed to isotonic August 17: Continues to tolerate extubation. Not in any distress and verbal. Labs reviewed. Low potassium addressed. Patient full code. Medication list reviewed. Continue per consultants. August 16: Post extubation. Tolerating well. Labs reviewed. Low potassium addressed. Continue per consultants. Stable from renal standpoint of view. Full code. August 15: Patient extubated on oxygen with cannula. Variable asking for coffee. Renal parameters stable. Continue per consultants. August 14: Status unchanged. Remains full code, intubated, on ventilator, FiO2 of 40%. Labs reviewed. Renal parameters stable. Hemoglobin lower. Suggest transfusion. August 13: Status quo. Remains full code, intubated, on FiO2 of 40%. Labs reviewed. Renal parameters stable. Continue per consultants. August 12: Intubated on ventilator. FiO2 40% unchanged. Full code. Labs reviewed. Renal parameters stable. Continue per consultants. August 11: Intubated on ventilator. O2 40%. Full code. Medication list reviewed. Labs reviewed. Stable from renal standpoint of view. Continue per consultants. August 10: Status quo. Intubated on ventilator. FiO2 remains 40%. Renal parameters stable. Continue per current management. Potassium and phosphorus supplement given August 09: Full code. Intubated on ventilator. FiO2 40%. Labs reviewed. Stable from renal standpoint of view. August 08: Labs reviewed. Renal parameters stable. Abnormal electrolytes addressed. Remains full code. FiO2 50%. Continue per consultants. Discussed with RN. August 07: Labs reviewed. K Phos IV given. Patient intubated. Full code. FiO2 60%. Medication list reviewed. Continue per consultants. Previously: Optimize pulmonary status Optimize cardiac status Monitor renal parameters, urine output, electrolytes Change IV to half-normal saline Anemia mansfield Insert NG tube and start feeding Per orders Subjective ROS Limited/Unobtainable: No Constitutional: Reports: malaise, weakness Objective Objective Last 24 Hour Vital Signs Date Time Temp Pulse Resp B/P (MAP) Pulse Ox O2 Delivery O2 Flow Rate FiO2 08/22/20 13:03 95 20 100 Nasal Cannula 3.0 32 94 20 100 08/22/20 12:00 97.7 89 20 105/71 (82) 98 08/22/20 12:00 4.0 08/22/20 12:00 Bi-pap 08/22/20 12:00 91 08/22/20 08:00 4.0 08/22/20 08:00 98 08/22/20 08:00 97.8 89 18 115/60 (78) 96 08/22/20 08:00 Bi-pap 08/22/20 06:52 88 20 100 Nasal Cannula 3.0 32 89 20 97 08/22/20 06:51 98 Nasal Cannula 3.0 36 08/22/20 04:00 97.9 90 112/73 (86) 08/22/20 04:00 Bi-pap 08/22/20 04:00 35 08/22/20 04:00 91 08/22/20 03:04 92 33 98 35 08/22/20 01:13 93 28 100 Bi-Pap 35 08/22/20 00:58 91 27 100 Bi-Pap 35 08/22/20 00:58 91 27 100 35 08/22/20 00:00 35 08/22/20 00:00 99 08/22/20 00:00 Bi-pap 08/22/20 00:00 97.0 104 155/58 (90) 08/21/20 23:32 100 33 96 35 08/21/20 21:40 102 38 93 35 08/21/20 20:00 Nasal Cannula 4.0 08/21/20 20:00 97.5 92 26 119/75 (90) 97 08/21/20 20:00 102 08/21/20 19:28 97 22 99 Nasal Cannula 3.0 32 08/21/20 19:13 94 20 99 Nasal Cannula 3.0 32 08/21/20 19:13 99 Nasal Cannula 3.0 36 08/21/20 16:06 4.0 08/21/20 16:00 5.0 08/21/20 16:00 97.5 91 22 103/69 (80) 99 08/21/20 16:00 Nasal Cannula 4.0 08/21/20 15:43 91 Intake and Output 08/21/20 08/22/20 19:00 07:00 Intake Total 1095.000 ml 200 ml Output Total 1000 ml 2100 ml Balance 95.000 ml -1900 ml Intake Oral 120 ml 50 ml IV Total 975.000 ml 150 ml Output Urine Total 1000 ml 2100 ml # Bowel Movements 1 1 Current Medications Medications (Trade) Dose Ordered Sig/Armand Route PRN Reason Start Time Stop Time Status Last Admin Dose Admin Acetaminophen (Tylenol) 650 mg Q6H PRN NG Mild Pain (Pain Scale 1-3) 08/08/20 14:00 09/07/20 13:59 08/13/20 17:02 Acetaminophen (Tylenol) 650 mg Q6H PRN NG Temp >100.5 08/08/20 14:00 09/07/20 13:59 Acetylcysteine (Mucomyst) 200 mg Q6HRT N 08/18/20 10:30 11/16/20 10:29 08/22/20 13:03 Albuterol/ Ipratropium (Albuterol/ Ipratropium) 3 ml Q4H PRN HHN Shortness of Breath 08/17/20 18:30 08/22/20 18:29 08/17/20 18:46 Albuterol/ Ipratropium (Albuterol/ Ipratropium) 3 ml Q6HRT HHN 08/18/20 10:30 08/23/20 10:29 08/22/20 13:03 Chlorhexidine Gluconate (Maddie-Hex 2%) 1 applic DAILY@1999 TOPIC 08/07/20 20:00 11/05/20 19:59 08/21/20 20:00 Dextrose/ Electrolytes 1,000 ml @ 50 mls/hr Q20H IV 08/18/20 15:00 09/17/20 14:59 08/22/20 03:00 Docusate Sodium (Colace) 100 mg EVERY 12 HOURS NG 08/13/20 21:00 09/11/20 17:59 08/22/20 08:07 Enoxaparin Sodium (Lovenox) 60 mg EVERY 12 HOURS SUBQ 08/05/20 21:00 11/03/20 20:59 08/22/20 08:08 Famotidine (Pepcid) 20 mg Q12H ORAL 08/20/20 21:00 11/18/20 20:59 08/22/20 08:09 Gabapentin (Neurontin) 300 mg THREE TIMES A DAY ORAL 08/20/20 22:00 09/19/20 21:59 08/22/20 13:00 Meropenem 1 gm/ Sodium Chloride 100 ml @ 200 mls/hr Q8HR IVPB 08/19/20 22:00 08/24/20 21:59 08/22/20 14:11 Polyethylene Glycol (Miralax) 17 gm BEDTIME ORAL 08/12/20 21:00 09/11/20 20:59 08/19/20 20:36 Prednisone (predniSONE) 20 mg DAILY ORAL 08/22/20 11:30 09/21/20 11:29 08/22/20 11:30 Vancomycin HCl (Vanco pharmacy to dose) 1 ea DAILY PRN MISC Per rx protocol 08/19/20 16:30 09/18/20 16:29 Vancomycin HCl 1 gm/Dextrose 275 ml @ 183.708 mls/hr Q8H IVPB 08/20/20 23:00 08/25/20 22:59 08/22/20 06:46 Laboratory Tests 08/22/20 07:00: White Blood Count 11.6H, Red Blood Count 3.09L, Hemoglobin 8.5L, Hematocrit 27.3L, Mean Corpuscular Volume 88, Mean Corpuscular Hemoglobin 27.5, Mean Corpuscular Hemoglobin Concent 31.2L, Red Cell Distribution Width 15.0H, Platelet Count 180, Mean Platelet Volume 6.1L, Neutrophils (%) (Auto) 82.5H, Lymphocytes (%) (Auto) 8.2L, Monocytes (%) (Auto) 8.3, Eosinophils (%) (Auto) 0.0, Basophils (%) (Auto) 1.0, Sodium Level 145, Potassium Level 4.4, Chloride Level 104, Carbon Dioxide Level 37H, Anion Gap 4L, Blood Urea Nitrogen 9, Creatinine 0.7, Estimat Glomerular Filtration Rate > 60, Glucose Level 136H, Calcium Level 8.9, Phosphorus Level 2.2L, Magnesium Level 2.0, Total Bilirubin 0.7, Aspartate Amino Transf (AST/SGOT) 19, Alanine Aminotransferase (ALT/SGPT) 41, Alkaline Phosphatase 48, C-Reactive Protein, Quantitative 1.9H, Total Protein 6.0L, Albumin 2.9L, Globulin 3.1, Albumin/Globulin Ratio 0.9L Height (Feet): 6 Height (Inches): 1.00 Weight (Pounds): 190 General Appearance: no apparent distress, confused Cardiovascular: tachycardia Respiratory/Chest: decreased breath sounds Abdomen: distended Aashish Burgess MD Aug 22, 2020 14:17
--- NOTE | 2020-08-22 15:04 | Internal Med Progress Note ---
Subjective Date of Service: Aug 22, 2020 Physician Name Pablo Hickman Attending Physician Torres Saul MD Current Medications Medications (Trade) Dose Ordered Sig/Armand Route PRN Reason Start Time Stop Time Status Last Admin Dose Admin Acetaminophen (Tylenol) 650 mg Q6H PRN NG Mild Pain (Pain Scale 1-3) 08/08/20 14:00 09/07/20 13:59 08/13/20 17:02 Acetaminophen (Tylenol) 650 mg Q6H PRN NG Temp >100.5 08/08/20 14:00 09/07/20 13:59 Acetylcysteine (Mucomyst) 200 mg Q6HRT HHN 08/18/20 10:30 11/16/20 10:29 08/22/20 13:03 Albuterol/ Ipratropium (Albuterol/ Ipratropium) 3 ml Q4H PRN HHN Shortness of Breath 08/17/20 18:30 08/22/20 18:29 08/17/20 18:46 Albuterol/ Ipratropium (Albuterol/ Ipratropium) 3 ml Q6HRT HHN 08/18/20 10:30 08/23/20 10:29 08/22/20 13:03 Chlorhexidine Gluconate (Maddie-Hex 2%) 1 applic DAILY@2000 TOPIC 08/07/20 20:00 11/05/20 19:59 08/21/20 20:00 Dextrose/ Electrolytes 1,000 ml @ 50 mls/hr Q20H IV 08/18/20 15:00 09/17/20 14:59 08/22/20 03:00 Docusate Sodium (Colace) 100 mg EVERY 12 HOURS NG 08/13/20 21:00 09/11/20 17:59 08/22/20 08:07 Enoxaparin Sodium (Lovenox) 60 mg EVERY 12 HOURS SUBQ 08/05/20 21:00 11/03/20 20:59 08/22/20 08:08 Famotidine (Pepcid) 20 mg Q12H ORAL 08/20/20 21:00 11/18/20 20:59 08/22/20 08:09 Gabapentin (Neurontin) 300 mg THREE TIMES A DAY ORAL 08/20/20 22:00 09/19/20 21:59 08/22/20 13:00 Meropenem 1 gm/ Sodium Chloride 100 ml @ 200 mls/hr Q8HR IVPB 08/19/20 22:00 08/24/20 21:59 08/22/20 14:11 Polyethylene Glycol (Miralax) 17 gm BEDTIME ORAL 08/12/20 21:00 09/11/20 20:59 08/19/20 20:36 Potassium Phosphate 20 mm/ Sodium Chloride 281.6667 ml @ 46.944 m... ONCE ONCE IV 08/22/20 16:00 08/22/20 21:59 Prednisone (predniSONE) 20 mg DAILY ORAL 08/22/20 11:30 09/21/20 11:29 08/22/20 11:30 Vancomycin HCl (Vanco pharmacy to dose) 1 ea DAILY PRN MISC Per rx protocol 08/19/20 16:30 09/18/20 16:29 Vancomycin HCl 1 gm/Dextrose 275 ml @ 183.708 mls/hr Q8H IVPB 08/20/20 23:00 08/25/20 22:59 08/22/20 06:46 Allergies: Coded Allergies: PENICILLINS (Verified Allergy, Unknown, 03/10/20) PHENYTOIN (Verified Allergy, Unknown, 03/10/20) ROS Limited/Unobtainable: Yes Subjective 79 YO M admitted with respiratory distress. Now pneumonia. Cover for Int Med- Dr Saul. Step down unit. Extubated 08/14/20. Back on BIPAP Objective Last Vital Signs Date Time Temp Pulse Resp B/P (MAP) Pulse Ox O2 Delivery O2 Flow Rate FiO2 08/22/20 13:03 95 20 100 Nasal Cannula 3.0 32 94 20 100 08/22/20 12:00 97.7 105/71 (82) Laboratory Tests Test 08/22/20 07:00 White Blood Count 11.6 K/UL (4.8-10.8) H Red Blood Count 3.09 M/UL (4.70-6.10) L Hemoglobin 8.5 G/DL (14.2-18.0) L Hematocrit 27.3 % (42.0-52.0) L Mean Corpuscular Volume 88 FL (80-99) Mean Corpuscular Hemoglobin 27.5 PG (27.0-31.0) Mean Corpuscular Hemoglobin Concent 31.2 G/DL (32.0-36.0) L Red Cell Distribution Width 15.0 % (11.6-14.8) H Platelet Count 180 K/UL (150-450) Mean Platelet Volume 6.1 FL (6.5-10.1) L Neutrophils (%) (Auto) 82.5 % (45.0-75.0) H Lymphocytes (%) (Auto) 8.2 % (20.0-45.0) L Monocytes (%) (Auto) 8.3 % (1.0-10.0) Eosinophils (%) (Auto) 0.0 % (0.0-3.0) Basophils (%) (Auto) 1.0 % (0.0-2.0) Sodium Level 145 MMOL/L (136-145) Potassium Level 4.4 MMOL/L (3.5-5.1) Chloride Level 104 MMOL/L (98-107) Carbon Dioxide Level 37 MMOL/L (21-32) H Anion Gap 4 mmol/L (5-15) L Blood Urea Nitrogen 9 mg/dL (7-18) Creatinine 0.7 MG/DL (0.55-1.30) Estimat Glomerular Filtration Rate > 60 mL/min (>60) Glucose Level 136 MG/DL (74-106) H Calcium Level 8.9 MG/DL (8.5-10.1) Phosphorus Level 2.2 MG/DL (2.5-4.9) L Magnesium Level 2.0 MG/DL (1.8-2.4) Total Bilirubin 0.7 MG/DL (0.2-1.0) Aspartate Amino Transf (AST/SGOT) 19 U/L (15-37) Alanine Aminotransferase (ALT/SGPT) 41 U/L (12-78) Alkaline Phosphatase 48 U/L (46-116) C-Reactive Protein, Quantitative 1.9 mg/dL (0.00-0.90) H Total Protein 6.0 G/DL (6.4-8.2) L Albumin 2.9 G/DL (3.4-5.0) L Globulin 3.1 g/dL Albumin/Globulin Ratio 0.9 (1.0-2.7) L Microbiology Date/Time Source Procedure Growth Status 08/20/20 17:00 Sputum Induced Gram Stain - Final Resulted 08/20/20 17:00 Sputum Culture - Preliminary Staphylococcus Aureus Resulted Intake and Output 08/21/20 08/22/20 19:00 07:00 Intake Total 1095.000 ml 200 ml Output Total 1000 ml 2100 ml Balance 95.000 ml -1900 ml Intake Oral 120 ml 50 ml IV Total 975.000 ml 150 ml Output Urine Total 1000 ml 2100 ml # Bowel Movements 1 1 Objective PHYSICAL EXAMINATION: GENERAL: The patient is well-developed, well-nourished male, in moderate respiratory distress. HEENT: Eyes, pupils are equal and responsive to light and accommodation. Extraocular movements are intact. NECK: Supple. No lymphadenopathy. CHEST: BIPAP; Lungs are clear to auscultation bilaterally without wheezes or rales. CARDIOVASCULAR: Regular rhythm and rate. S1-S2 are normal without murmurs, rubs, or gallops. ABDOMEN: Soft, nontender, and nondistended. Positive bowel sounds. No evidence of hepatosplenomegaly. Currently, no rebound or guarding noted. EXTREMITIES: Negative for clubbing, cyanosis, or edema. RECTAL/GENITAL: Not performed. NEUROLOGIC: Cranial nerves II through XII are grossly intact without focal deficits. Motor strength is 5/5 bilaterally. Deep tendon reflexes are 2+ plantar. Assessment/Plan Assessment/Plan ASSESSMENT: This is an 79-year-old male with. 1. Respiratory failure-intubated 08/05/20; extubated 08/14/20>back on BIPAP 08/19/20 2. Right-sided pneumonia. 3. Hypertension. 4. Congestive heart failure. 5. Chronic obstructive pulmonary disease. 6. Anemia. 7. Cerebrovascular disease, status post cerebrovascular accident. 8. Peripheral vascular disease. 9. Gastroesophageal reflux disease. 10. Major depression. 11. Seizure disorder. 12. History of COVID-19 positive in February 2020. 13. Benign prostatic hypertrophy. 14. Hypokalemia TREATMENT: 1. Respiratory failure/right-sided pneumonia pulmonary consultation= Dr. Micha Schneider. ABX= meropenem and vanco; Infectious Disease= Dr. Urrutia. Follow recommendations of Infectious Disease and Pulmonary. 2. Hypertension. The patient is currently hypotensive. 3. Congestive heart failure. 4. Chronic obstructive pulmonary disease. Continue DuoNeb as above. 5. Anemia. 6. Cerebrovascular disease. 7. Peripheral vascular disease. 8. Gastroesophageal reflux disease. Continue famotidine as above. 9. Major depression. Seizure disorder. 10. COVID-19 positive, history in February 2020. 11. Benign prostatic hypertrophy. Continue Flomax as above. 12. Oral potassium supp DVT treatment: Lovenox 60 mg subcu twice a day Prednisone 20mg po daily. CODE STATUS: Full code. Pablo Hickman MD Aug 22, 2020 15:04
[2020-08-22 16:00] VITALS: BP 112/73
[2020-08-22] MEDS ORDERED: Potassium Phosphate 20 MM in NS 275 ML IV ONE (16:00)
--- NOTE | 2020-08-22 19:25 | NUR ---
NURSE HAND-OFF REPORT: Important Events on Shift:NA Patient Status: Stable Diet: Regular with puree texture Pending Orders: NA Pending Results/Labs:NA Pending MD notification:NA Latest Vital Signs: Temperature 98.0 , Pulse 95 , B/P 112 /73 , Respiratory Rate 21 , O2 SAT 98 , Venturi Mask, O2 Flow Rate 3.0 . Vital Sign Comment: Stable EKG Rhythm: Sinus Rhythm Rhythm change?: N MD Notified?: - MD Response: Latest Castro Fall Score: 50 Fall Risk: High Risk Safety Measures: Call light Within Reach, Bed Alarm Zone 1, Side Rails Side Rails x3, Bed position Low and Locked. Fall Precautions: Yellow Socks Yellow Gown Door Sign Patient Fall Education Report given to ION Jaimes.
--- NOTE | 2020-08-22 19:32 | NUR ---
NURSE NOTES: Report received from ION Shah. Patient is awake on bed in stable condition. Alert and oriented x 2, air sampling and monitoring is in place, shows sinus rhythm with no chest pain reported. On nasal cannula @ 4Lpm saturating 95%. On regular diet, pureed moist, crush medications, 1:1 feed assist. With bee catheter in place, draining light mera color urine output. On seizure precaution, side rails are padded and suction were set-up. Fall and Aspiration precaution maintained and observed. Safety measures are in place, will continue plan of care.
[2020-08-22 20:00] VITALS: BP 108/73
[2020-08-22] MEDS: Miralax 17gm pkt ORAL SCH (20:02)
[2020-08-22] MEDS: Dyna-Hex 2% Top Sol 2oz TOPIC SCH (20:02)
--- NOTE | 2020-08-22 20:15 | NUR ---
NURSE NOTES: Assisted patient on his feeding, able to consumed 1/4 of his meal and half of ensure. No aspiration noted.
[2020-08-23] VITALS (7 sets, daily range): BP systolic 111–144; BP diastolic 54–88
--- NOTE | 2020-08-23 00:15 | NUR ---
NURSE NOTES: RN noted that patient's having purse-lip breathing, RR of 30's, explained the needs of Bipap but patient refused at this time, and started to be apprehensive. Repositioned on his back and place on high uriarte's position. Will closely monitor.
--- NOTE | 2020-08-23 01:00 | NUR ---
NURSE NOTES: Noted that patient has been much tachypneic, RR of 32-32, saturating 95%. Elevated head of bed, and suction secretions. With due Acetylcysteine and albuterol breathing treatment, called RT and spoke with "Juan Diego", will continue to monitor.
[2020-08-23] MEDS: Acetylcysteine 20% Soln 4ml HHN SCH ×4 (01:24→18:55)
[2020-08-23] MEDS: Albuterol/Ipratropium 3ml neb HHN SCH ×2 (01:24→06:45)
--- NOTE | 2020-08-23 01:30 | NUR ---
NURSE NOTES: Patient is still tachypneic after his breathing treatment, RN was able to convinced the patient to place the Bipap for at least a couple of hours until he feels better and his breathing be much more stabilized. Will closely monitor.
--- NOTE | 2020-08-23 04:20 | NUR ---
NURSE NOTES: Bed bath done, oral care provided, repositioned on his left side, still on Bipap saturating 98-99%. Will continue plan of care.
[2020-08-23] MEDS: Vancomycin 750mg/D5W 275ml IVPB SCH ×6 (06:44→22:34)
--- NOTE | 2020-08-23 07:02 | NUR ---
NURSE HAND-OFF REPORT: Important Events on Shift: Patient had an an episode of SOB, shifted nasal cannula to Bipap. No hypotension nor fever noted the whole shift. Patient Status: Patient is awake on bed. Plan of care endorsed. Diet:Regular, pureed moist, crush medications. 1:1 feeder. Pending Orders: None Pending Results/Labs:AM labs Pending MD notification:none Latest Vital Signs: Temperature 97.9 , Pulse 100 , B/P 111 /75 , Respiratory Rate 30 , O2 SAT 97 , Venturi Mask, O2 Flow Rate 4.0 . Vital Sign Comment: stable EKG Rhythm: Sinus Rhythm Rhythm change?: N MD Notified?: - MD Response: Latest Castro Fall Score: 50 Fall Risk: High Risk Safety Measures: Call light Within Reach, Bed Alarm Zone 1, Side Rails Side Rails x3, Bed position Low and Locked. Fall Precautions: Yellow Socks Yellow Gown Door Sign Patient Fall Education Report given to ION Lackey.
[2020-08-23] MEDS: Docusate 100mg/10ml Liq NG SCH ×2 (07:36→21:00)
[2020-08-23] MEDS: Enoxaparin 60mg Inj SUBQ SCH ×2 (07:44→21:00)
--- NOTE | 2020-08-23 07:45 | NUR ---
NURSE NOTES: Report received from Fiona LEMON. Patient is awake and AOx2, medical anthropologist is in place, shows sinus rhythm with no chest pain reported. NC @ 4L with no sign of resp distress or sob. Butler catheter in place, draining light mera color urine output. On seizure precaution, side rails are padded and suction were set-up. Fall and Aspiration precaution maintained and observed. Safety measures are in place, will continue plan of care.
[2020-08-23 09:15] LABS: BASOPHILS % (AUTO) 0.8 % (0.0-2.0); EOSINOPHILS % (AUTO) 0.1 % (0.0-3.0); HEMATOCRIT 27.3 % (42.0-52.0); HEMOGLOBIN 8.4 G/DL (14.2-18.0); LYMPHOCYTES % (AUTO) 8.7 % (20.0-45.0); MEAN CORPUSCULAR VOLUME 90 FL (80-99); MONOCYTES % (AUTO) 7.1 % (1.0-10.0); NEUTROPHILS % (AUTO) 83.4 % (45.0-75.0); PLATELET COUNT 192 K/UL (150-450); RED BLOOD COUNT 3.05 M/UL (4.70-6.10); RED CELL DISTRIBUTION WIDTH 16.2 % (11.6-14.8); WHITE BLOOD COUNT 14.9 K/UL (4.8-10.8)
[2020-08-23 09:26] LABS: ALANINE AMINOTRANSFERASE 41 U/L (12-78); ALBUMIN/GLOBULIN RATIO 0.9 (1.0-2.7); ALKALINE PHOSPHATASE 57 U/L (46-116); ANION GAP 6 mmol/L (5-15); ASPARTATE AMINO TRANSFERASE 29 U/L (15-37); BILIRUBIN,TOTAL 0.7 MG/DL (0.2-1.0); BLOOD UREA NITROGEN 12 mg/dL (7-18); CALCIUM 8.9 MG/DL (8.5-10.1); CARBON DIOXIDE 32 MMOL/L (21-32); CHLORIDE 104 MMOL/L (98-107); CREATININE 0.6 MG/DL (0.55-1.30); POTASSIUM 4.5 MMOL/L (3.5-5.1); SODIUM 142 MMOL/L (136-145)
--- NOTE | 2020-08-23 09:27 | Pulmonology Progress Note ---
Subjective ROS Limited/Unobtainable: Yes Interval Events: Doing well on nasal O2 Constitutional: Reports: fatigue; Denies: fever HEENT: Repors: no symptoms Respiratory: Reports: shortness of breath Cardiovascular: Reports: no symptoms Gastrointestinal/Abdominal: Denies: nausea, vomiting, diarrhea Genitourinary: Reports: no symptoms Neurologic: Reports: no symptoms Psychiatric: Reports: other - NA Skin: Denies: rash Musculoskeletal: Denies: pain Allergies: Coded Allergies: PENICILLINS (Verified Allergy, Unknown, 03/10/20) PHENYTOIN (Verified Allergy, Unknown, 03/10/20) Objective Last 24 Hour Vital Signs Date Time Temp Pulse Resp B/P (MAP) Pulse Ox O2 Delivery O2 Flow Rate FiO2 08/23/20 08:00 101 08/23/20 07:37 97.7 102 31 135/77 (96) 96 08/23/20 07:13 96 Nasal Cannula 5.0 40 08/23/20 07:07 97 Nasal Cannula 4.0 36 08/23/20 07:00 94 24 98 Nasal Cannula 4.0 26 90 24 95 08/23/20 06:42 100 30 97 35 08/23/20 04:00 4.0 08/23/20 04:00 95 08/23/20 04:00 97.9 95 31 111/75 (87) 95 08/23/20 04:00 Bi-pap 08/23/20 03:30 103 38 97 35 08/23/20 01:37 104 39 95 35 08/23/20 01:24 103 20 99 Nasal Cannula 3.0 32 101 20 96 08/23/20 00:25 4.0 08/23/20 00:00 106 08/23/20 00:00 97.2 104 26 117/54 (75) 99 08/23/20 00:00 Nasal Cannula 4.0 08/22/20 20:00 97.7 95 25 108/73 (85) 98 08/22/20 20:00 Nasal Cannula 4.0 08/22/20 20:00 4.0 08/22/20 20:00 92 08/22/20 19:05 94 20 100 Nasal Cannula 3.0 32 93 20 98 08/22/20 19:05 98 Nasal Cannula 3.0 32 08/22/20 16:00 Bi-pap 08/22/20 16:00 4.0 08/22/20 16:00 97 08/22/20 16:00 98.0 95 21 112/73 (86) 96 08/22/20 13:03 95 20 100 Nasal Cannula 3.0 32 94 20 100 08/22/20 12:00 97.7 89 20 105/71 (82) 98 08/22/20 12:00 4.0 08/22/20 12:00 Bi-pap 08/22/20 12:00 91 Intake and Output 08/22/20 08/23/20 19:00 07:00 Intake Total 290 ml 750 ml Output Total 2000 ml 900 ml Balance -1710 ml -150 ml Intake Oral 240 ml 350 ml IV Total 50 ml 400 ml Output Urine Total 2000 ml 900 ml # Bowel Movements 1 2 Objective Off BiPAP General Appearance: no acute distress HEENT: normocephalic Respiratory: chest wall non-tender, lungs clear Cardiovascular: normal peripheral pulses, normal rate Abdomen: normal bowel sounds Extremities: no cyanosis Microbiology Date/Time Source Procedure Growth Status 08/20/20 17:00 Sputum Induced Gram Stain - Final Complete 08/20/20 17:00 Sputum Culture - Final Staphylococcus Aureus - Mrsa Complete Laboratory Tests 08/22/20 21:48: Vancomycin Level Trough 22.1H 08/23/20 09:00: White Blood Count 14.9H, Red Blood Count 3.05L, Hemoglobin 8.4L, Hematocrit 27.3L, Mean Corpuscular Volume 90, Mean Corpuscular Hemoglobin 27.5, Mean Corpuscular Hemoglobin Concent 30.7L, Red Cell Distribution Width 16.2H, Platelet Count 192, Mean Platelet Volume 6.1L, Neutrophils (%) (Auto) 83.4H, Lymphocytes (%) (Auto) 8.7L, Monocytes (%) (Auto) 7.1, Eosinophils (%) (Auto) 0.1, Basophils (%) (Auto) 0.8, Sodium Level [Pending], Potassium Level [Pending], Chloride Level [Pending], Carbon Dioxide Level [Pending], Blood Urea Nitrogen [Pending], Creatinine [Pending], Estimat Glomerular Filtration Rate [Pending], Glucose Level [Pending], Calcium Level [Pending], Total Bilirubin [Pending], Aspartate Amino Transf (AST/SGOT) [Pending], Alanine Aminotransferase (ALT/SGPT) [Pending], Alkaline Phosphatase [Pending], Total Protein [Pending], Albumin [Pending], Globulin [Pending] Current Medications Medications (Trade) Dose Ordered Sig/Armand Route PRN Reason Start Time Stop Time Status Last Admin Dose Admin Acetaminophen (Tylenol) 650 mg Q6H PRN NG Mild Pain (Pain Scale 1-3) 08/08/20 14:00 09/07/20 13:59 08/13/20 17:02 Acetaminophen (Tylenol) 650 mg Q6H PRN NG Temp >100.5 08/08/20 14:00 09/07/20 13:59 Acetylcysteine (Mucomyst) 200 mg Q6HRT HHN 08/18/20 10:30 11/16/20 10:29 08/23/20 06:45 Albuterol/ Ipratropium (Albuterol/ Ipratropium) 3 ml Q6HRT HHN 08/18/20 10:30 08/23/20 10:29 08/23/20 06:45 Chlorhexidine Gluconate (Maddie-Hex 2%) 1 applic DAILY@2000 TOPIC 08/07/20 20:00 11/05/20 19:59 08/22/20 20:02 Dextrose/ Electrolytes 1,000 ml @ 50 mls/hr Q20H IV 08/18/20 15:00 09/17/20 14:59 08/22/20 19:28 Docusate Sodium (Colace) 100 mg EVERY 12 HOURS NG 08/13/20 21:00 09/11/20 17:59 08/22/20 20:02 Enoxaparin Sodium (Lovenox) 60 mg EVERY 12 HOURS SUBQ 08/05/20 21:00 11/03/20 20:59 08/23/20 07:44 Famotidine (Pepcid) 20 mg Q12H ORAL 08/20/20 21:00 11/18/20 20:59 08/23/20 07:42 Gabapentin (Neurontin) 300 mg THREE TIMES A DAY ORAL 08/20/20 22:00 09/19/20 21:59 08/23/20 07:42 Meropenem 1 gm/ Sodium Chloride 100 ml @ 200 mls/hr Q8HR IVPB 08/19/20 22:00 08/24/20 21:59 08/23/20 05:55 Polyethylene Glycol (Miralax) 17 gm BEDTIME ORAL 08/12/20 21:00 09/11/20 20:59 08/22/20 20:02 Prednisone (predniSONE) 20 mg DAILY ORAL 08/22/20 11:30 09/21/20 11:29 08/23/20 07:42 Vancomycin HCl (Vanco pharmacy to dose) 1 ea DAILY PRN MISC Per rx protocol 08/19/20 16:30 09/18/20 16:29 Vancomycin HCl 750 mg/Dextrose 275 ml @ 184 mls/hr Q8H IVPB 08/23/20 07:00 08/28/20 06:59 08/23/20 06:44 Assessment/Plan Assessment/Plan 1. UTI -s/p empiric antibiotics -Follow-up UCx negative (08/03) 2. Pneumonia -s/p broad-spectrum antibiotics - CXR concerning for volume loss; latest CXR shows RUL atelectasis - CT chest shows dense RUL and RML consolidation - High suspicion for RBI narrowing ; no obvious endobronchial narrowing noted on bronchoscopy - CXR (08/18) New/increased right upper lobe infiltrate and atelectasis 3. COPD exacerbation -Now extubated 4. Respiratory distress - Doing well off BiPAP; on nasal O2 - will taper steroid - continue HHN 5. History of seizures -Risk of aspiration -Monitor for seizure activity 6. Elevated CRP -D-dimer wnl -His outpatient medications include Eliquis (hx of A fib?) - Continue Eliquis (Patient was seen earlier today. Signature timestamp does not reflect patient encounter time) Micha Amezquita MD, MD Aug 23, 2020 09:27
--- NOTE | 2020-08-23 09:48 | NUR ---
RD ASSESSMENT & RECOMMENDATIONS SEE CARE ACTIVITY FOR COMPLETE ASSESSMENT DAILY ESTIMATED NEEDS: Needs based on Pulmonary, cardiac / 75.7kg abw 25-30 kcals/kg 2453-7511 total kcals 1.25-1.5 g protein/kg 95-114 g total protein 25-30 mL/kg 3484-8949 total fluid mLs NUTRITION DIAGNOSIS: Swallowing difficulty R/T respiratory failure as evidenced by pt is now extubated (08/14), now on Bipap w/ aspiration risk, on puree texture diet. CURRENT DIET:On bipap, now Regular/ puree PO DIET RECOMMENDATIONS: LOW NA/ texture per LABEL MACHINE OPERATOR ADDITIONAL RECOMMENDATIONS: 1) Calibrated bedscale wts 2) F/up w/ LABEL MACHINE OPERATOR eval and rec 3) Monitor BGs w/ Solumedrol, need for carb controlled diet and/or NISS 4) Monitor lytes, replete as needed (phos 2.2) 5) Monitor respiratory status: s/p extubation (08/14), now on Bipa Now on puree texture diet-> add ensure enlive tid w/ meals 6) With oral diet add FÉLIX BID for skin integrity
--- NOTE | 2020-08-23 10:13 | Diagnostic Imaging Report ---
EXAM: XR Chest, 1 View CLINICAL HISTORY: INFECT TECHNIQUE: Frontal view of the chest. COMPARISON: 08/20/20 FINDINGS: Lungs: There is been slight improvement in patchy diffuse right lung pneumonia with worsening left lower lobe pneumonia. The left lower lobe density has a round configuration measuring approximate 10 cm in diameter. This likely represent focal consolidation, however CT of the chest is recommended to exclude other etiologies such as pulmonary abscess. Pleural space: There is an unchanged small right pleural effusion. No pneumothorax. Heart: Unremarkable. No cardiomegaly. Mediastinum: Unremarkable. Bones/joints: Unremarkable. IMPRESSION: There is been slight improvement in patchy diffuse right lung pneumonia with worsening left lower lobe pneumonia. The left lower lobe density has a round configuration measuring approximate 10 cm in diameter. This likely represent focal consolidation, however CT of the chest is recommended to exclude other etiologies such as pulmonary abscess.
--- NOTE | 2020-08-23 10:58 | Surgery Progress Note ---
Surgery Progress Note Subjective Symptoms: improved, tolerating diet, passing flatus Objective Last 24 Hour Vital Signs Date Time Temp Pulse Resp B/P (MAP) Pulse Ox O2 Delivery O2 Flow Rate FiO2 08/23/20 08:00 Bi-pap 08/23/20 08:00 4.0 08/23/20 08:00 101 08/23/20 07:37 97.7 102 31 135/77 (96) 96 08/23/20 07:13 96 Nasal Cannula 5.0 40 08/23/20 07:07 97 Nasal Cannula 4.0 36 08/23/20 07:00 94 24 98 Nasal Cannula 4.0 26 90 24 95 08/23/20 06:42 100 30 97 35 08/23/20 04:00 4.0 08/23/20 04:00 95 08/23/20 04:00 97.9 95 31 111/75 (87) 95 08/23/20 04:00 Bi-pap 08/23/20 03:30 103 38 97 35 08/23/20 01:37 104 39 95 35 08/23/20 01:24 103 20 99 Nasal Cannula 3.0 32 101 20 96 08/23/20 00:25 4.0 08/23/20 00:00 106 08/23/20 00:00 97.2 104 26 117/54 (75) 99 08/23/20 00:00 Nasal Cannula 4.0 08/22/20 20:00 97.7 95 25 108/73 (85) 98 08/22/20 20:00 Nasal Cannula 4.0 08/22/20 20:00 4.0 08/22/20 20:00 92 08/22/20 19:05 94 20 100 Nasal Cannula 3.0 32 93 20 98 08/22/20 19:05 98 Nasal Cannula 3.0 32 08/22/20 16:00 Bi-pap 08/22/20 16:00 4.0 08/22/20 16:00 97 08/22/20 16:00 98.0 95 21 112/73 (86) 96 08/22/20 13:03 95 20 100 Nasal Cannula 3.0 32 94 20 100 08/22/20 12:00 97.7 89 20 105/71 (82) 98 08/22/20 12:00 4.0 08/22/20 12:00 Bi-pap 08/22/20 12:00 91 I&O Intake and Output 08/22/20 08/23/20 19:00 07:00 Intake Total 290 ml 750 ml Output Total 2000 ml 900 ml Balance -1710 ml -150 ml Intake Oral 240 ml 350 ml IV Total 50 ml 400 ml Output Urine Total 2000 ml 900 ml # Bowel Movements 1 2 Dressing: saturated Cardiovascular: RSR Respiratory: clear, decreased breath sounds Abdomen: soft, non-tender, present bowel sounds, non-distended Extremities: no edema, no tenderness, no cyanosis Laboratory Tests Test 08/22/20 21:48 08/23/20 09:00 Vancomycin Level Trough 22.1 ug/mL (5.0-12.0) H White Blood Count 14.9 K/UL (4.8-10.8) H Red Blood Count 3.05 M/UL (4.70-6.10) L Hemoglobin 8.4 G/DL (14.2-18.0) L Hematocrit 27.3 % (42.0-52.0) L Mean Corpuscular Volume 90 FL (80-99) Mean Corpuscular Hemoglobin 27.5 PG (27.0-31.0) Mean Corpuscular Hemoglobin Concent 30.7 G/DL (32.0-36.0) L Red Cell Distribution Width 16.2 % (11.6-14.8) H Platelet Count 192 K/UL (150-450) Mean Platelet Volume 6.1 FL (6.5-10.1) L Neutrophils (%) (Auto) 83.4 % (45.0-75.0) H Lymphocytes (%) (Auto) 8.7 % (20.0-45.0) L Monocytes (%) (Auto) 7.1 % (1.0-10.0) Eosinophils (%) (Auto) 0.1 % (0.0-3.0) Basophils (%) (Auto) 0.8 % (0.0-2.0) Sodium Level 142 MMOL/L (136-145) Potassium Level 4.5 MMOL/L (3.5-5.1) Chloride Level 104 MMOL/L (98-107) Carbon Dioxide Level 32 MMOL/L (21-32) Anion Gap 6 mmol/L (5-15) Blood Urea Nitrogen 12 mg/dL (7-18) Creatinine 0.6 MG/DL (0.55-1.30) Estimat Glomerular Filtration Rate > 60 mL/min (>60) Glucose Level 147 MG/DL (74-106) H Calcium Level 8.9 MG/DL (8.5-10.1) Total Bilirubin 0.7 MG/DL (0.2-1.0) Aspartate Amino Transf (AST/SGOT) 29 U/L (15-37) Alanine Aminotransferase (ALT/SGPT) 41 U/L (12-78) Alkaline Phosphatase 57 U/L (46-116) Total Protein 6.2 G/DL (6.4-8.2) L Albumin 3.0 G/DL (3.4-5.0) L Globulin 3.2 g/dL Albumin/Globulin Ratio 0.9 (1.0-2.7) L Plan Problems: (1) Abdominal distension Assessment & Plan: 79M abdominal distention, respiratory decline, altered mental status. on exam noted abd soft, mild distended, non tender. no n/v/f/c. unlikely aspiration. non tender one exam. pending urine and covid test. no acute surgical intervention. hold on ct. kub ordered. will follow with exam and recs. keep npo for now. iv fluids. respiratory pulm support. will follow with recs thank you decline since admission now intubated ng tube to suction no acute surgical intervention cont abx kub noted wean vent enema when stable improved tolerating diet cont diet no n/v labs okay The rectum is considerably distended with stool. Considerable stool is also seen in the descending colon. The colon is diffusely gas filled, upper limits of normal in caliber. No significant small bowel gas demonstrated. No masses or unusual calcifications. The included lung bases demonstrate bilateral right greater than left pleural effusions. There is a Butler catheter Impression: Distended stool-filled rectum, fecal impaction possible Gas-filled upper limits of normal caliber colon, nonspecific Bilateral right greater than left pleural effusions (2) UTI (urinary tract infection) (3) Pneumonia (4) Multiple pulmonary nodules (5) Respiratory failure with hypoxia Assessment & Plan: cont weaning (6) Pneumonia due to COVID-19 virus (7) History of CVA (cerebrovascular accident) (8) COPD (chronic obstructive pulmonary disease) (9) HTN (hypertension) (10) Hx of prostatic malignancy (11) Major depression (12) Seizure disorder Destin Brown Aug 23, 2020 10:58
[2020-08-23] MEDS ORDERED: NS 275ml ONE (11:32)
[2020-08-23] MEDS ORDERED: D5W 275ml ONE (11:32)
--- NOTE | 2020-08-23 13:08 | NUR ---
CASE MANAGEMENT:REVIEW 08/23/20 SI: PNA. COPD EXACERBATION. UTI 97.7 102 31 135/77 96% ON BIPAP WBC+14.9 IS: IV VANCOMYCIN Q8HR IV MEROPENEM Q8HRS PREDNISONE PO QD NEURONTIN PO TID PEPCID PO Q12 MUCOMYST HHN Q6HRS LOVENOX SQ Q12 : STEP DOWN UNIT DCP: FROM indico
--- NOTE | 2020-08-23 14:28 | Internal Med Progress Note ---
Subjective Date of Service: Aug 23, 2020 Physician Name Pablo Hickman Attending Physician Torres Saul MD Current Medications Medications (Trade) Dose Ordered Sig/Armand Route PRN Reason Start Time Stop Time Status Last Admin Dose Admin Acetaminophen (Tylenol) 650 mg Q6H PRN NG Mild Pain (Pain Scale 1-3) 08/08/20 14:00 09/07/20 13:59 08/13/20 17:02 Acetaminophen (Tylenol) 650 mg Q6H PRN NG Temp >100.5 08/08/20 14:00 09/07/20 13:59 Acetylcysteine (Mucomyst) 200 mg Q6HRT HHN 08/18/20 10:30 11/16/20 10:29 08/23/20 06:45 Chlorhexidine Gluconate (Maddie-Hex 2%) 1 applic DAILY@2000 TOPIC 08/07/20 20:00 11/05/20 19:59 08/22/20 20:02 Docusate Sodium (Colace) 100 mg EVERY 12 HOURS NG 08/13/20 21:00 09/11/20 17:59 08/22/20 20:02 Enoxaparin Sodium (Lovenox) 60 mg EVERY 12 HOURS SUBQ 08/05/20 21:00 11/03/20 20:59 08/23/20 07:44 Famotidine (Pepcid) 20 mg Q12H ORAL 08/20/20 21:00 11/18/20 20:59 08/23/20 07:42 Gabapentin (Neurontin) 300 mg THREE TIMES A DAY ORAL 08/20/20 22:00 09/19/20 21:59 08/23/20 12:02 Meropenem 1 gm/ Sodium Chloride 100 ml @ 200 mls/hr Q8HR IVPB 08/19/20 22:00 08/24/20 21:59 08/23/20 14:04 Polyethylene Glycol (Miralax) 17 gm BEDTIME ORAL 08/12/20 21:00 09/11/20 20:59 08/22/20 20:02 Prednisone (predniSONE) 20 mg DAILY ORAL 08/22/20 11:30 09/21/20 11:29 08/23/20 07:42 Vancomycin HCl (Vanco pharmacy to dose) 1 ea DAILY PRN MISC Per rx protocol 08/19/20 16:30 09/18/20 16:29 Vancomycin HCl 750 mg/Dextrose 275 ml @ 184 mls/hr Q8H IVPB 08/23/20 07:00 08/28/20 06:59 08/23/20 06:44 Allergies: Coded Allergies: PENICILLINS (Verified Allergy, Unknown, 03/10/20) PHENYTOIN (Verified Allergy, Unknown, 03/10/20) Subjective 79 YO M admitted with respiratory distress. Now pneumonia. Cover for Int Med- Dr Saul. Step down unit. Extubated 08/14/20. Objective Last Vital Signs Date Time Temp Pulse Resp B/P (MAP) Pulse Ox O2 Delivery O2 Flow Rate FiO2 08/23/20 12:00 99 08/23/20 11:58 Bi-pap 08/23/20 11:57 4.0 08/23/20 11:54 97.5 26 136/83 (100) 96 08/23/20 07:13 40 Laboratory Tests Test 08/22/20 21:48 08/23/20 09:00 Vancomycin Level Trough 22.1 ug/mL (5.0-12.0) H White Blood Count 14.9 K/UL (4.8-10.8) H Red Blood Count 3.05 M/UL (4.70-6.10) L Hemoglobin 8.4 G/DL (14.2-18.0) L Hematocrit 27.3 % (42.0-52.0) L Mean Corpuscular Volume 90 FL (80-99) Mean Corpuscular Hemoglobin 27.5 PG (27.0-31.0) Mean Corpuscular Hemoglobin Concent 30.7 G/DL (32.0-36.0) L Red Cell Distribution Width 16.2 % (11.6-14.8) H Platelet Count 192 K/UL (150-450) Mean Platelet Volume 6.1 FL (6.5-10.1) L Neutrophils (%) (Auto) 83.4 % (45.0-75.0) H Lymphocytes (%) (Auto) 8.7 % (20.0-45.0) L Monocytes (%) (Auto) 7.1 % (1.0-10.0) Eosinophils (%) (Auto) 0.1 % (0.0-3.0) Basophils (%) (Auto) 0.8 % (0.0-2.0) Sodium Level 142 MMOL/L (136-145) Potassium Level 4.5 MMOL/L (3.5-5.1) Chloride Level 104 MMOL/L (98-107) Carbon Dioxide Level 32 MMOL/L (21-32) Anion Gap 6 mmol/L (5-15) Blood Urea Nitrogen 12 mg/dL (7-18) Creatinine 0.6 MG/DL (0.55-1.30) Estimat Glomerular Filtration Rate > 60 mL/min (>60) Glucose Level 147 MG/DL (74-106) H Calcium Level 8.9 MG/DL (8.5-10.1) Total Bilirubin 0.7 MG/DL (0.2-1.0) Aspartate Amino Transf (AST/SGOT) 29 U/L (15-37) Alanine Aminotransferase (ALT/SGPT) 41 U/L (12-78) Alkaline Phosphatase 57 U/L (46-116) Total Protein 6.2 G/DL (6.4-8.2) L Albumin 3.0 G/DL (3.4-5.0) L Globulin 3.2 g/dL Albumin/Globulin Ratio 0.9 (1.0-2.7) L Microbiology Date/Time Source Procedure Growth Status 08/20/20 17:00 Sputum Induced Gram Stain - Final Complete 08/20/20 17:00 Sputum Culture - Final Staphylococcus Aureus - [facility] Complete Intake and Output 08/22/20 08/23/20 19:00 07:00 Intake Total 290 ml 750 ml Output Total 2000 ml 900 ml Balance -1710 ml -150 ml Intake Oral 240 ml 350 ml IV Total 50 ml 400 ml Output Urine Total 2000 ml 900 ml # Bowel Movements 1 2 Objective PHYSICAL EXAMINATION: GENERAL: The patient is well-developed, well-nourished male, in moderate respiratory distress. HEENT: Eyes, pupils are equal and responsive to light and accommodation. Extraocular movements are intact. NECK: Supple. No lymphadenopathy. CHEST: nasal cannula; Lungs are clear to auscultation bilaterally without wheezes or rales. CARDIOVASCULAR: Regular rhythm and rate. S1-S2 are normal without murmurs, rubs, or gallops. ABDOMEN: Soft, nontender, and nondistended. Positive bowel sounds. No evidence of hepatosplenomegaly. Currently, no rebound or guarding noted. EXTREMITIES: Negative for clubbing, cyanosis, or edema. RECTAL/GENITAL: Not performed. NEUROLOGIC: Cranial nerves II through XII are grossly intact without focal deficits. Motor strength is 5/5 bilaterally. Deep tendon reflexes are 2+ plantar. Assessment/Plan Assessment/Plan ASSESSMENT: This is an 79-year-old male with. 1. Respiratory failure-intubated 08/05/20; extubated 08/14/20>BIPAP 08/19/20>nasal cannula 2. Right-sided pneumonia. 3. Hypertension. 4. Congestive heart failure. 5. Chronic obstructive pulmonary disease. 6. Anemia. 7. Cerebrovascular disease, status post cerebrovascular accident. 8. Peripheral vascular disease. 9. Gastroesophageal reflux disease. 10. Major depression. 11. Seizure disorder. 12. History of COVID-19 positive in February 2020. 13. Benign prostatic hypertrophy. 14. Hypokalemia TREATMENT: 1. Respiratory failure/right-sided pneumonia pulmonary consultation= Dr. Micha Schneider. ABX= meropenem and vanco; Infectious Disease= Dr. Urrutia. Follow recommendations of Infectious Disease and Pulmonary. 2. Hypertension. The patient is currently hypotensive. 3. Congestive heart failure. 4. Chronic obstructive pulmonary disease. Continue DuoNeb as above. 5. Anemia. 6. Cerebrovascular disease. 7. Peripheral vascular disease. 8. Gastroesophageal reflux disease. Continue famotidine as above. 9. Major depression. Seizure disorder. 10. COVID-19 positive, history in February 2020. 11. Benign prostatic hypertrophy. Continue Flomax as above. 12. Oral potassium supp DVT treatment: Lovenox 60 mg subcu twice a day Prednisone 20mg po daily. CODE STATUS: Full code. Pablo Hickman MD Aug 23, 2020 14:27
--- NOTE | 2020-08-23 15:40 | NUR ---
RESPIRATORY NOTE: Received call from RN to place Pt back on bipap due to labored breathing. Upon arrival pt was found to have pink/ red frothy secretions coming out of his mouth. Orally SXN large amounts of pink/ red frothy secretions. Holding BIPAP therapy due to risk of aspiration. Spo2 94% on 5L NC. RN bedside. RN will notify MD. Stat ABG to be drawn. Pt has history of CHF. Will continue to monitor.
--- NOTE | 2020-08-23 16:00 | NUR ---
NURSE NOTES: Dr Schneider was notified of oral secretions while I was on break. Rt was notified and ABG are satisfactory. Will continue to monitor
--- NOTE | 2020-08-23 16:29 | Nephrology Progress Note ---
Assessment/Plan Problem List: (1) Oliguria (2) Electrolyte imbalance (3) Pneumonia (4) Respiratory failure with hypoxia (5) Pneumonia due to COVID-19 virus (6) Seizure disorder (7) Anemia Assessment Sepsis, respiratory failure Pneumonia and possible aspiration. Questionable COVID-19 infection UTI Abnormal electrolytes Questionable CHF Anemia Plan August 23: Tachypneic. Confused. Mouth is foaming. Discussed with RN. 1 dose of Lasix given. Respiratory treatment, BiPAP, per pulmonary advice. Continue monitor renal parameters and electrolytes. August 22: Lethargic. Periodically on BiPAP alternate with O2 cannula. Labs reviewed. Renal parameters stable. Patient is full code. Abnormal electrolytes addressed. Continue as is. August 21: Patient confused. O2 with nasal cannula. Labs reviewed. Renal parame ters stable. Full code. Continue as is. Continue per consultants. August 20: Patient on oxygen with nasal cannula. Labs reviewed. Renal parameters stable. Remains full code. Continue per pulmonary and other consultants. August 19: Patient on BiPAP. Labs reviewed. Abnormal electrolytes addressed. Patient full code. Continue to monitor ABG and renal parameters. Continue per consultants. August 18: Patient's clinical condition deteriorated. Back on BiPAP. Mental status down. Cannot take p.o. Will give potassium IV. Patient remains full code. Continue per analysis director. Hypotonic IV fluid changed to isotonic August 17: Continues to tolerate extubation. Not in any distress and verbal. Labs reviewed. Low potassium addressed. Patient full code. Medication list reviewed. Continue per consultants. August 16: Post extubation. Tolerating well. Labs reviewed. Low potassium addressed. Continue per consultants. Stable from renal standpoint of view. Full code. August 15: Patient extubated on oxygen with cannula. Variable asking for coffee. Renal parameters stable. Continue per consultants. August 14: Status unchanged. Remains full code, intubated, on ventilator, FiO2 of 40%. Labs reviewed. Renal parameters stable. Hemoglobin lower. [address] transfusion. August 13: Status quo. Remains full code, intubated, on FiO2 of 40%. Labs reviewed. Renal parameters stable. Continue per consultants. August 12: Intubated on ventilator. FiO2 40% unchanged. Full code. Labs reviewed. Renal parameters stable. Continue per consultants. August 11: Intubated on ventilator. O2 40%. Full code. Medication list reviewed. Labs reviewed. Stable from renal standpoint of view. Continue per consultants. August 10: Status quo. Intubated on ventilator. FiO2 remains 40%. Renal parameters stable. Continue per current management. Potassium and phosphorus supplement given August 09: Full code. Intubated on ventilator. FiO2 40%. Labs reviewed. Stable from renal standpoint of view. August 08: Labs reviewed. Renal parameters stable. Abnormal electrolytes addressed. Remains full code. FiO2 50%. Continue per consultants. Discussed with RN. August 07: Labs reviewed. K Phos IV given. Patient intubated. Full code. FiO2 60%. Medication list reviewed. Continue per consultants. Previously: Optimize pulmonary status Optimize cardiac status Monitor renal parameters, urine output, electrolytes Change IV to half-normal saline Anemia mansfield Insert NG tube and start feeding Per orders Subjective ROS Limited/Unobtainable: Yes Objective Objective Last 24 Hour Vital Signs Date Time Temp Pulse Resp B/P (MAP) Pulse Ox O2 Delivery O2 Flow Rate FiO2 08/23/20 12:00 99 08/23/20 11:58 Bi-pap 08/23/20 11:57 4.0 08/23/20 11:54 97.5 95 26 136/83 (100) 96 08/23/20 08:00 Bi-pap 08/23/20 08:00 4.0 08/23/20 08:00 101 08/23/20 07:37 97.7 102 31 135/77 (96) 96 08/23/20 07:13 96 Nasal Cannula 5.0 40 08/23/20 07:07 97 Nasal Cannula 4.0 36 08/23/20 07:00 94 24 98 Nasal Cannula 4.0 26 90 24 95 08/23/20 06:42 100 30 97 35 08/23/20 04:00 4.0 08/23/20 04:00 95 08/23/20 04:00 97.9 95 31 111/75 (87) 95 08/23/20 04:00 Bi-pap 08/23/20 03:30 103 38 97 35 08/23/20 01:37 104 39 95 35 08/23/20 01:24 103 20 99 Nasal Cannula 3.0 32 101 20 96 08/23/20 00:25 4.0 08/23/20 00:00 106 08/23/20 00:00 97.2 104 26 117/54 (75) 99 08/23/20 00:00 Nasal Cannula 4.0 08/22/20 20:00 97.7 95 25 108/73 (85) 98 08/22/20 20:00 Nasal Cannula 4.0 08/22/20 20:00 4.0 08/22/20 20:00 92 08/22/20 19:05 94 20 100 Nasal Cannula 3.0 32 93 20 98 08/22/20 19:05 98 Nasal Cannula 3.0 32 Intake and Output 08/22/20 08/23/20 19:00 07:00 Intake Total 290 ml 750 ml Output Total 2000 ml 900 ml Balance -1710 ml -150 ml Intake Oral 240 ml 350 ml IV Total 50 ml 400 ml Output Urine Total 2000 ml 900 ml # Bowel Movements 1 2 Current Medications Medications (Trade) Dose Ordered Sig/Armnad Route PRN Reason Start Time Stop Time Status Last Admin Dose Admin Acetaminophen (Tylenol) 650 mg Q6H PRN NG Mild Pain (Pain Scale 1-3) 08/08/20 14:00 09/07/20 13:59 08/13/20 17:02 Acetaminophen (Tylenol) 650 mg Q6H PRN NG Temp >100.5 08/08/20 14:00 09/07/20 13:59 Acetylcysteine (Mucomyst) 200 mg Q6HRT HHN 08/18/20 10:30 11/16/20 10:29 08/23/20 06:45 Chlorhexidine Gluconate (Maddie-Hex 2%) 1 applic DAILY@2000 TOPIC 08/07/20 20:00 11/05/20 19:59 08/22/20 20:02 Docusate Sodium (Colace) 100 mg EVERY 12 HOURS NG 08/13/20 21:00 09/11/20 17:59 08/22/20 20:02 Enoxaparin Sodium (Lovenox) 60 mg EVERY 12 HOURS SUBQ 08/05/20 21:00 11/03/20 20:59 08/23/20 07:44 Famotidine (Pepcid) 20 mg Q12H ORAL 08/20/20 21:00 11/18/20 20:59 08/23/20 07:42 Furosemide (Lasix) 40 mg ONCE IV 08/23/20 15:45 08/23/20 17:00 08/23/20 15:55 Gabapentin (Neurontin) 300 mg THREE TIMES A DAY ORAL 08/20/20 22:00 09/19/20 21:59 08/23/20 12:02 Meropenem 1 gm/ Sodium Chloride 100 ml @ 200 mls/hr Q8HR IVPB 08/19/20 22:00 08/24/20 21:59 08/23/20 14:04 Polyethylene Glycol (Miralax) 17 gm BEDTIME ORAL 08/12/20 21:00 09/11/20 20:59 08/22/20 20:02 Prednisone (predniSONE) 20 mg DAILY ORAL 08/22/20 11:30 09/21/20 11:29 08/23/20 07:42 [facility]a DAILY PRN MISC Per rx protocol 08/19/20 16:30 09/18/20 16:29 Vancomycin HCl 750 mg/Dextrose 275 ml @ 184 mls/hr Q8H IVPB 08/23/20 07:00 08/28/20 06:59 08/23/20 14:36 Laboratory Tests 08/22/20 21:48: Vancomycin Level Trough 22.1H 08/23/20 09:00: White Blood Count 14.9H, Red Blood Count 3.05L, Hemoglobin 8.4L, Hematocrit 27.3L, Mean Corpuscular Volume 90, Mean Corpuscular Hemoglobin 27.5, Mean Corpuscular Hemoglobin Concent 30.7L, Red Cell Distribution Width 16.2H, Platelet Count 192, Mean Platelet Volume 6.1L, Neutrophils (%) (Auto) 83.4H, Lymphocytes (%) (Auto) 8.7L, Monocytes (%) (Auto) 7.1, Eosinophils (%) (Auto) 0.1, Basophils (%) (Auto) 0.8, Sodium Level 142, Potassium Level 4.5, Chloride Level 104, Carbon Dioxide Level 32, Anion Gap 6, Blood Urea Nitrogen 12, Creatinine 0.6, Estimat Glomerular Filtration Rate > 60, Glucose Level 147H, Calcium Level 8.9, Total Bilirubin 0.7, Aspartate Amino Transf (AST/SGOT) 29, Alanine Aminotransferase (ALT/SGPT) 41, Alkaline Phosphatase 57, Total Protein 6.2L, Albumin 3.0L, Globulin 3.2, Albumin/Globulin Ratio 0.9L 08/23/20 15:51: Arterial Blood pH 7.413, Arterial Blood Partial Pressure CO2 53.6H, Arterial Blood Partial Pressure O2 67.3L, Arterial Blood HCO3 33.4H, Arterial Blood Oxygen Saturation 92.0L, Arterial Blood Base Excess 7.9H, Chadwick Test Positive Height (Feet): 6 Height (Inches): 1.00 Weight (Pounds): 190 General Appearance: moderate distress Neck: limited range of motion Cardiovascular: tachycardia Respiratory/Chest: decreased breath sounds, rhonchi - bilaterally Abdomen: distended Aashish Burgess MD Aug 23, 2020 16:29
--- NOTE | 2020-08-23 18:12 | Infectious Diseases Prog Note ---
Assessment/Plan Assessment/Plan ASSESSMENT AND PLAN: 1. mrsa pna, aspiration risk, sob, copd steroids, leukocytosis, hx sepsis mrsa colonization patient with picc covid-19 testing negative - vancomycin - day # 10/26 - meropenem - day # 10/23 - f/u on labs and chest x-ray, 08/23/20 - chest x-ray improved - pulmonary f/u/tx - d/w RN 2. covid-19 testing negative - isolation removed 3. Patient is on steroids for copd 4. aspiration precautions, pulmonary f/u 5. cou care 6. Blood pressure support. 7. Hypertension. 8. CHF. 9. COPD. 10. Prostate cancer. 11. Anemia. 12. CVA. 13. Aspiration risk. 14. Peripheral vascular disease. 15. GERD. 16. Seizures. 17. Depression. 18. History of COVID infection in February 2020. 19. Continue treatment per primary consultants. 20. Orders were noted and entered. 21. Skin care protocol. 22. Allergies to penicillin and phenytoin. 23. Social history is negative. 24. Family history is noncontributory. 25. MAR is noted. 26. Case was discussed with RN. Subjective Constitutional: Reports: fatigue, other - responsive ; Denies: fever HEENT: Reports: congestion - less Respiratory: Reports: shortness of breath - less Cardiovascular: Denies: chest pain Gastrointestinal/Abdominal: Denies: nausea Genitourinary: Reports: other - + bee Neurologic: Denies: headache Psychiatric: Reports: other - NA Skin: Denies: rash Hematologic: Denies: bleeding Musculoskeletal: Denies: pain Allergies: Coded Allergies: PENICILLINS (Verified Allergy, Unknown, 03/10/20) PHENYTOIN (Verified Allergy, Unknown, 03/10/20) Objective Last 24 Hour Vital Signs Date Time Temp Pulse Resp B/P (MAP) Pulse Ox O2 Delivery O2 Flow Rate FiO2 08/23/20 16:51 97.5 102 30 131/88 (102) 98 08/23/20 16:00 Bi-pap 08/23/20 16:00 97 08/23/20 16:00 97.5 102 30 131/88 (102) 85 08/23/20 16:00 5.0 08/23/20 12:00 99 08/23/20 11:58 Bi-pap 08/23/20 11:57 4.0 08/23/20 11:54 97.5 95 26 136/83 (100) 96 08/23/20 08:00 Bi-pap 08/23/20 08:00 4.0 08/23/20 08:00 101 08/23/20 07:37 97.7 102 31 135/77 (96) 96 08/23/20 07:13 96 Nasal Cannula 5.0 40 08/23/20 07:07 97 Nasal Cannula 4.0 36 08/23/20 07:00 94 24 98 Nasal Cannula 4.0 26 90 24 95 08/23/20 06:42 100 30 97 35 08/23/20 04:00 4.0 08/23/20 04:00 95 08/23/20 04:00 97.9 95 31 111/75 (87) 95 08/23/20 04:00 Bi-pap 08/23/20 03:30 103 38 97 35 08/23/20 01:37 104 39 95 35 08/23/20 01:24 103 20 99 Nasal Cannula 3.0 32 101 20 96 08/23/20 00:25 4.0 08/23/20 00:00 106 08/23/20 00:00 97.2 104 26 117/54 (75) 99 08/23/20 00:00 Nasal Cannula 4.0 08/22/20 20:00 97.7 95 25 108/73 (85) 98 08/22/20 20:00 Nasal Cannula 4.0 08/22/20 20:00 4.0 08/22/20 20:00 92 08/22/20 19:05 94 20 100 Nasal Cannula 3.0 32 93 20 98 08/22/20 19:05 98 Nasal Cannula 3.0 32 Height (Feet): 6 Height (Inches): 1.00 Weight (Pounds): 190 General Appearance: no acute distress HEENT: normocephalic, atraumatic, anicteric Respiratory/Chest: crackles/rales, rhonchi - bilaterally Cardiovascular: normal rate, regular rhythm, no gallop/murmur, no JVD Abdomen: normal bowel sounds, soft, non tender, no organomegaly, non distended Genitourinary: other - + bee - urine slt cloudy Extremities: no cyanosis Skin: no rash 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 Considerable right upper lobe atelectatic changes. COPD changes A few areas of atelectasis and possibly some consolidation is seen in the left lung Small right pleural fluid Evidence of old granulomatous disease 3 mm mm noncalcified nodule in the right middle lobe, not definitely evident previously. Recommend short interval 6 to 12 month follow-up CT scan Dilated right main pulmonary artery, indicative of pulmonary arterial hypertension Satisfactory endotracheal intubation Cholelithiasis Chest x-ray - 08/06/20 - Procedure: XRAY Chest 1v Indication: Abnormal chest sounds Technique: One view of the chest Comparison: 08/05/2020 Findings: Stable satisfactory the position of endotracheal tube. There is developing atelectasis in the right upper lung. There is persistent pleural fluid on the right and increasing parenchymal consolidation. Left lung pleural space remain clear. The heart size is normal Impression: Increasing right upper lobe atelectasis and right lung infiltrate. Unchanged right pleural effusion Chest x-ray - 08/09/20 Procedure: XRAY Chest 1v EXAM: XR Chest, 1 View CLINICAL HISTORY: INFECT TECHNIQUE: Frontal view of the chest. COMPARISON: Chest radiograph August 06, 2020. FINDINGS/IMPRESSION: Stable endotracheal tube. Opacity within the right lower lung field consistent with infiltrate, which is mild improving. Mild-moderate pleural effusion which is mildly worsening. No pneumothorax. The heart size is within normal limit. Calcified, tortuous aorta. Chest x-ray - 08/11/20 - IMPRESSION: No change in bibasilar infiltrate and small bilateral effusions. Endotracheal tube and NG tube remain in place. Chest x-ray - 08/13/20- Procedure: XRAY Chest 1v Procedure: XRAY Chest 1v Reason for study: Shortness of breath. Comparison films: 08/11/2020. FINDINGS: Endotracheal tube, NG tube and right PICC line imaging in place. Vascularity is normal. Basilar infiltrates and small effusions are unchanged. Cardiac and mediastinal silhouette are within normal limits. The bony thorax appear unremarkable. IMPRESSION: NO SIGNIFICANT CHANGE COMPARED TO PREVIOUS EXAM. Chest x-ray - 08/14/20 - Procedure: XRAY Chest 1v Procedure: XRAY Chest 1v Reason for study: Reason For Exam: SOB Comparison films: 08/13/2020. FINDINGS: Radiograph is underexposed. Endotracheal tube and NG tube remain in place . Bilateral infiltrates and small effusions unchanged. Cardiac and mediastinal silhouette are within normal limits. The bony thorax appear unremarkable. IMPRESSION: NO SIGNIFICANT CHANGE COMPARED TO PREVIOUS EXAM. Chest x-ray - 08/18/20 - Procedure: XRAY Chest 1v Indication: Cough Technique: One view of the chest Comparison: 08/17/2020 Findings: There is increasing atelectasis and consolidation of the right upper lobe. Infiltrates versus chronic changes of the mid and lower lungs are again demonstrated. Right arm PICC remains. Right midlung and left lung emphysematous changes are stable. Right-sided pleural effusion persists, unchanged. Impression: New/increased right upper lobe infiltrate and atelectasis Chest x-ray - 08/20/20 - Procedure: XRAY Chest 1v Indication: Dyspnea Technique: One view of the chest Comparison: 08/18/2020 Findings: There is improved aeration of the right upper lobe, with markedly decreased atelectasis. There is increasing consolidation of the right lower lobe as well as increasing pleural fluid on the right. Left pleural effusion appears increased as well. PICC remains Impression: Markedly improved right upper lobe volume loss, over 2 days Increased right basilar consolidation Increased bilateral pleural effusions Chest x-ray - 08/23/20 - IMPRESSION: There is been slight improvement in patchy diffuse right lung pneumonia with worsening left lower lobe pneumonia. The left lower lobe density has a round configuration measuring approximate 10 cm in diameter. This likely represent focal consolidation, however CT of the chest is recommended to exclude other etiologies such as pulmonary abscess. Microbiology Date/Time Source Procedure Growth Status 08/20/20 17:00 Sputum Induced Gram Stain - Final Complete 08/20/20 17:00 Sputum Culture - Final Staphylococcus Aureus - Mrsa Complete 08/16/20 17:33 Femoral Right Catheter Tip Culture - Final NO GROWTH AFTER 4 DAYS Complete 08/06/20 03:20 Blood Blood Culture - Final NO GROWTH AFTER 5 DAYS Complete 08/03/20 19:41 Urine,Clean Catch Urine Culture - Final Mixed Gram Positive Organism Complete Laboratory Tests Test 08/22/20 21:48 08/23/20 09:00 08/23/20 15:51 Vancomycin Level Trough 22.1 ug/mL (5.0-12.0) H White Blood Count 14.9 K/UL (4.8-10.8) H Red Blood Count 3.05 M/UL (4.70-6.10) L Hemoglobin 8.4 G/DL (14.2-18.0) L Hematocrit 27.3 % (42.0-52.0) L Mean Corpuscular Volume 90 FL (80-99) Mean Corpuscular Hemoglobin 27.5 PG (27.0-31.0) Mean Corpuscular Hemoglobin Concent 30.7 G/DL (32.0-36.0) L Red Cell Distribution Width 16.2 % (11.6-14.8) H Platelet Count 192 K/UL (150-450) Mean Platelet Volume 6.1 FL (6.5-10.1) L Neutrophils (%) (Auto) 83.4 % (45.0-75.0) H Lymphocytes (%) (Auto) 8.7 % (20.0-45.0) L Monocytes (%) (Auto) 7.1 % (1.0-10.0) Eosinophils (%) (Auto) 0.1 % (0.0-3.0) Basophils (%) (Auto) 0.8 % (0.0-2.0) Sodium Level 142 MMOL/L (136-145) Potassium Level 4.5 MMOL/L (3.5-5.1) Chloride Level 104 MMOL/L (98-107) Carbon Dioxide Level 32 MMOL/L (21-32) Anion Gap 6 mmol/L (5-15) Blood Urea Nitrogen 12 mg/dL (7-18) Creatinine 0.6 MG/DL (0.55-1.30) Estimat Glomerular Filtration Rate > 60 mL/min (>60) Glucose Level 147 MG/DL (74-106) H Calcium Level 8.9 MG/DL (8.5-10.1) Total Bilirubin 0.7 MG/DL (0.2-1.0) Aspartate Amino Transf (AST/SGOT) 29 U/L (15-37) Alanine Aminotransferase (ALT/SGPT) 41 U/L (12-78) Alkaline Phosphatase 57 U/L (46-116) Total Protein 6.2 G/DL (6.4-8.2) L Albumin 3.0 G/DL (3.4-5.0) L Globulin 3.2 g/dL Albumin/Globulin Ratio 0.9 (1.0-2.7) L Arterial Blood pH 7.413 (7.350-7.450) Arterial Blood Partial Pressure CO2 53.6 mmHg (35.0-45.0) H Arterial Blood Partial Pressure O2 67.3 mmHg (75.0-100.0) L Arterial Blood HCO3 33.4 mmol/L (22.0-26.0) H Arterial Blood Oxygen Saturation 92.0 % (95-100) L Arterial Blood Base Excess 7.9 (-2-2) H Chadwick Test Positive Current Medications Medications (Trade) Dose Ordered Sig/Armand Route PRN Reason Start Time Stop Time Status Last Admin Dose Admin Acetaminophen (Tylenol) 650 mg Q6H PRN NG Mild Pain (Pain Scale 1-3) 08/08/20 14:00 09/07/20 13:59 08/13/20 17:02 Acetaminophen (Tylenol) 650 mg Q6H PRN NG Temp >100.5 08/08/20 14:00 09/07/20 13:59 Acetylcysteine (Mucomyst) 200 mg Q6HRT HHN 08/18/20 10:30 11/16/20 10:29 08/23/20 06:45 Chlorhexidine Gluconate (Maddie-Hex 2%) 1 applic DAILY@2000 TOPIC 08/07/20 20:00 11/05/20 19:59 08/22/20 20:02 Docusate Sodium (Colace) 100 mg EVERY 12 HOURS NG 08/13/20 21:00 09/11/20 17:59 08/22/20 20:02 Enoxaparin Sodium (Lovenox) 60 mg EVERY 12 HOURS SUBQ 08/05/20 21:00 11/03/20 20:59 08/23/20 07:44 Famotidine (Pepcid) 20 mg Q12H ORAL 08/20/20 21:00 11/18/20 20:59 08/23/20 07:42 Gabapentin (Neurontin) 300 mg THREE TIMES A DAY ORAL 08/20/20 22:00 09/19/20 21:59 08/23/20 12:02 Meropenem 1 gm/ Sodium Chloride 100 ml @ 200 mls/hr Q8HR IVPB 08/19/20 22:00 08/24/20 21:59 08/23/20 14:04 Polyethylene Glycol (Miralax) 17 gm BEDTIME ORAL 08/12/20 21:00 09/11/20 20:59 08/22/20 20:02 Prednisone (predniSONE) 20 mg DAILY ORAL 08/22/20 11:30 09/21/20 11:29 08/23/20 07:42 Vancomycin HCl (Vanco pharmacy to dose) 1 ea DAILY PRN MISC Per rx protocol 08/19/20 16:30 09/18/20 16:29 Vancomycin HCl 750 mg/Dextrose 275 ml @ 184 mls/hr Q8H IVPB 08/23/20 07:00 08/28/20 06:59 08/23/20 14:36 Kemar Nichole MD Aug 23, 2020 18:12
--- NOTE | 2020-08-23 19:09 | NUR ---
NURSE HAND-OFF REPORT: Important Events on Shift: pink frothy sputum, Patient Status: Diet: puree, crush meds Pending Orders: Pending Results/Labs Pending MD notification Latest Vital Signs: Temperature 97.5 , Pulse 102 , B/P 131 /88 , Respiratory Rate 30 , O2 SAT 98 , Venturi Mask, O2 Flow Rate 5.0 . Vital Sign Comment: EKG Rhythm: Sinus Rhythm Rhythm change?: N MD Notified?: - MD Response: Latest Castro Fall Score: 50 Fall Risk: High Risk Safety Measures: Call light Within Reach, Bed Alarm Zone 1, Side Rails Side Rails x3, Bed position Low and Locked. Fall Precautions: Yellow Socks Yellow Gown Door Sign Patient Fall Education Report given to John Dsouza.
--- NOTE | 2020-08-23 19:20 | NUR ---
NURSE NOTES: Pt report received from Darya Humphreys pt is alert and oriented times 1, no acute change in neuro. pt is showing NSR on sports physiologist, no acute abnormalities cardiac roa. pt is on bipap sating 95% O2, no acute changes in resp. pt bed is low locked armed. call light within reach, bed rails up times 3. will follow plan of care.
--- NOTE | 2020-08-23 19:50 | NUR ---
NURSE HAND-OFF REPORT: Important Events on Shift:[NA] Patient Status: [stable] Diet: [NA] Pending Orders: [NA] Pending Results/Labs:[NA] Pending MD notification:[NA] Latest Vital Signs: Temperature 97.5 , Pulse 95 , B/P 131 /88 , Respiratory Rate 33 , O2 SAT 95 , Venturi Mask, O2 Flow Rate 5.0 . Vital Sign Comment: [stable] EKG Rhythm: Sinus Rhythm Rhythm change?: N MD Notified?: - MD Response: Latest Castro Fall Score: 50 Fall Risk: High Risk Safety Measures: Call light Within Reach, Bed Alarm Zone 1, Side Rails Side Rails x3, Bed position Low and Locked. Fall Precautions: Yellow Socks Yellow Gown Door Sign Patient Fall Education Report given to [Fiona Barr RN].
--- NOTE | 2020-08-23 19:52 | NUR ---
NURSE NOTES: Report received from ION Lopez. Patient is drowsy, open his eyes occasionally. lunchroom monitor is in place, shows sinus rhythm. On Bipap, 30/01, Fi02 35% saturating 92-93%. With bee catheter in place, drained via gravity with light mera urine output. Fall, aspiration and seizure precaution maintained and observed. With double lumen PICC line on right upper arm. Safety measures are in place, bed in lowest and locked position, side rails up x 2, call light button and bedside table within reach, will continue plan of care.
--- NOTE | 2020-08-23 20:05 | NUR ---
NURSE NOTES: Pateint's RR is on 30's, saturating 92-95% but visible distress noted. Will repositioned on his left side.
--- NOTE | 2020-08-23 20:30 | NUR ---
NURSE NOTES: Noticeable labored breathing, RR on 32-35cpm, saturating 89-92% other vitals were stable. Place on high fowlers position, will order ABG.
[2020-08-23] MEDS: Albuterol/Ipratropium 3ml neb HHN PRN (20:50)
[2020-08-23] MEDS: Miralax 17gm pkt ORAL SCH (21:00)
[2020-08-23] MEDS: Dyna-Hex 2% Top Sol 2oz TOPIC SCH (21:04)
--- NOTE | 2020-08-23 21:39 | NUR ---
NURSE NOTES: ABG done and relayed results to Dr. Schneider, awaiting for call back.
--- NOTE | 2020-08-23 22:00 | NUR ---
NURSE NOTES: Called Dr. Schneider again and awaiting for his call back, will closely monitor the patient.
--- NOTE | 2020-08-23 22:10 | NUR ---
NURSE NOTES: Received an order from Dr. Schneider to adjust Bipap settings to, 15/5 and Fi02 to 40%.
[2020-08-24] VITALS (8 sets, daily range): BP systolic 91–149; BP diastolic 69–106
--- NOTE | 2020-08-24 00:08 | NUR ---
NURSE NOTES: Patient's respirations is still labored but much better compared a few hours ago, repositioned on his right side, suction secretions and still noted streak of blood, will continue to monitor.
[2020-08-24] MEDS: Acetylcysteine 20% Soln 4ml HHN SCH ×2 (01:00→07:09)
[2020-08-24] MEDS: Albuterol/Ipratropium 3ml neb HHN PRN ×2 (03:12→07:09)
--- NOTE | 2020-08-24 04:20 | NUR ---
NURSE NOTES: Bed bath done, oral care provided, BP is stable, RR of 30's, and saturating 93%. Will continue to monitor.
--- NOTE | 2020-08-24 05:10 | NUR ---
NURSE NOTES: Noticed that patient's breathing is labored, cold clammy skin, saturating 94% on Bipap 15/5 and Fi02 40%. Will order stat ABG.
--- NOTE | 2020-08-24 05:35 | NUR ---
NURSE NOTES: Informed RT "[place]" for stat ABG, will follow up.
[2020-08-24] MEDS: Vancomycin 750mg/D5W 275ml IVPB SCH ×2 (06:15)
[2020-08-24 06:22] LABS: HEMATOCRIT 28.2 % (42.0-52.0); HEMOGLOBIN 8.5 G/DL (14.2-18.0); MEAN CORPUSCULAR VOLUME 91 FL (80-99); PLATELET COUNT 130 K/UL (150-450); RED BLOOD COUNT 3.11 M/UL (4.70-6.10); RED CELL DISTRIBUTION WIDTH 16.4 % (11.6-14.8); WHITE BLOOD COUNT 17.3 K/UL (4.8-10.8)
[2020-08-24 06:29] LABS: ALANINE AMINOTRANSFERASE 47 U/L (12-78); ALBUMIN 2.9 G/DL (3.4-5.0); ALKALINE PHOSPHATASE 63 U/L (46-116); ANION GAP 6 mmol/L (5-15); ASPARTATE AMINO TRANSFERASE 32 U/L (15-37); BILIRUBIN,TOTAL 0.7 MG/DL (0.2-1.0); BLOOD UREA NITROGEN 16 mg/dL (7-18); CALCIUM 8.5 MG/DL (8.5-10.1); CARBON DIOXIDE 36 MMOL/L (21-32); CHLORIDE 100 MMOL/L (98-107); CREATININE 0.6 MG/DL (0.55-1.30); POTASSIUM 4.7 MMOL/L (3.5-5.1); SODIUM 141 MMOL/L (136-145)
--- NOTE | 2020-08-24 06:31 | NUR ---
NURSE NOTES: ABG result relayed to Dr. Schneider, orders received to transfer to ICU and change the setting to Bipap 18/5 and Fi02 40. Will coordinate the transfer.
--- NOTE | 2020-08-24 06:36 | NUR ---
NURSE NOTES: Called casino slot supervisor "Gisela", awaiting for bed availability.
[2020-08-24 06:54] LABS: PHOSPHORUS 3.6 MG/DL (2.5-4.9)
--- NOTE | 2020-08-24 07:26 | NUR ---
TRANSFER TO FLOOR: Patient transferred to ICU, per bed. Report given to ION García. Patient open his eyes occasionally, saturating 92% on Bipap 18/5, Fi02 40%. Plan of care endorsed.
--- NOTE | 2020-08-24 07:27 | NUR ---
NURSE NOTES: Patient is transferred from [facility]. Received report from ION Jaimes. Patient open his eyes but unable to follow commands. Was on venturi mask and SOB noted, RR above 40s. Changed to Bipap 18/5, fio2 100% at this time. Kept dry, clean and comfortable. Inventory check done.
--- NOTE | 2020-08-24 07:35 | NUR ---
NURSE NOTES: RR 30s. O2 sat 100% on the monitor.
[2020-08-24] MEDS: Docusate 100mg/10ml Liq NG SCH (08:11)
[2020-08-24] MEDS: Enoxaparin 60mg Inj SUBQ SCH (08:13)
--- NOTE | 2020-08-24 09:23 | NUR ---
NURSE NOTES: Seen by Warehouse Lead, Edwin Beckham and assessed patient. Updated patient's condition. NNO at this time.
--- NOTE | 2020-08-24 09:55 | NUR ---
NURSE NOTES: Patient is desating 80s and fluctuating 80-90s. Talked with Edwin Beckham NP and recommended intubation. He said he talked with Dr. Schneider and Dr. Schneider will be here around 1000. Will follow up.
--- NOTE | 2020-08-24 10:00 | NUR ---
NURSE NOTES: Seen by Dr. Schneider and assessed patient. Called ER for intubation.
--- NOTE | 2020-08-24 10:15 | NUR ---
NURSE NOTES: Intubated by ER ETT 7.5/23cm at lip line with vent setting ac 18, vt 500, peep 5 and fio2 100%.
--- NOTE | 2020-08-24 10:22 | NUR ---
NURSE NOTES: Patient has code blue. See code blue sheet.
--- NOTE | 2020-08-24 10:30 | Nephrology Progress Note ---
Assessment/Plan Problem List: (1) Oliguria (2) Electrolyte imbalance (3) Pneumonia (4) Respiratory failure with hypoxia (5) Pneumonia due to COVID-19 virus (6) Seizure disorder (7) Anemia Assessment Sepsis, respiratory failure Pneumonia and possible aspiration. Questionable COVID-19 infection UTI Abnormal electrolytes Questionable CHF Anemia Plan August 24: Patient is back in ICU. Discussed with RN. Patient on BiPAP. Labs reviewed. ABG reviewed. Patient retaining CO2. Continue care per pulmonology. Remains stable from renal standpoint of view. Planned to be intubated. August 23: Tachypneic. Confused. Mouth is foaming. Discussed with RN. 1 dose of Lasix given. Respiratory treatment, BiPAP, per pulmonary advice. Continue monitor renal parameters and electrolytes. August 22: Lethargic. Periodically on BiPAP alternate with O2 cannula. Labs reviewed. Renal parameters stable. Patient is full code. Abnormal electrolytes addressed. Continue as is. August 21: Patient confused. O2 with nasal cannula. Labs reviewed. Renal parameters stable. Full code. Continue as is. Continue per consultants. August 20: Patient on oxygen with nasal cannula. Labs reviewed. Renal parameters stable. Remains full code. Continue per pulmonary and other consultants. August 19: Patient on BiPAP. Labs reviewed. Abnormal electrolytes addressed. Patient full code. Continue to monitor ABG and renal parameters. Continue per consultants. August 18: Patient's clinical condition deteriorated. Back on BiPAP. Mental status down. Cannot take p.o. Will give potassium IV. Patient remains full code. Continue per statement request clerk. Hypotonic IV fluid changed to isotonic August 17: Continues to tolerate extubation. Not in any distress and verbal. Labs reviewed. Low potassium addressed. Patient full code. Medication list reviewed. Continue per consultants. August 16: Post extubation. Tolerating well. Labs reviewed. Low potassium addressed. Continue per consultants. Stable from renal standpoint of view. Full code. August 15: Patient extubated on oxygen with cannula. Variable asking for coffee. Renal parameters stable. Continue per consultants. August 14: Status unchanged. Remains full code, intubated, on ventilator, FiO2 of 40%. Labs reviewed. Renal parameters stable. Hemoglobin lower. Suggest transfusion. August 13: Status quo. Remains full code, intubated, on FiO2 of 40%. Labs reviewed. Renal parameters stable. Continue per consultants. August 12: Intubated on ventilator. FiO2 40% unchanged. Full code. Labs reviewed. Renal parameters stable. Continue per consultants. August 11: Intubated on ventilator. O2 40%. Full code. Medication list reviewed. Labs reviewed. Stable from renal standpoint of view. Continue per consultants. August 10: Status quo. Intubated on ventilator. FiO2 remains 40%. Renal parameters stable. Continue per current management. Potassium and phosphorus supplement given August 09: Full code. Intubated on ventilator. FiO2 40%. Labs reviewed. Stable from renal standpoint of view. August 08: Labs reviewed. Renal parameters stable. Abnormal electrolytes addressed. Remains full code. FiO2 50%. Continue per consultants. Discussed with RN. August 07: Labs reviewed. K Phos IV given. Patient intubated. Full code. FiO2 60%. Medication list reviewed. Continue per consultants. Previously: Optimize pulmonary status Optimize cardiac status Monitor renal parameters, urine output, electrolytes Change IV to half-normal saline Anemia mansfield Insert NG tube and start feeding Per orders Subjective ROS Limited/Unobtainable: Yes Objective Objective Last 24 Hour Vital Signs Date Time Temp Pulse Resp B/P (MAP) Pulse Ox O2 Delivery O2 Flow Rate FiO2 08/24/20 08:00 100 08/24/20 08:00 Bi-pap 08/24/20 07:24 107 45 91 Bi-Pap 100 106 39 95 100 08/24/20 07:24 93 Bi-Pap 100 08/24/20 06:45 112 49 100 100 08/24/20 05:07 95 100 08/24/20 04:00 Bi-pap 08/24/20 04:00 40 08/24/20 04:00 97.7 105 32 116/73 (87) 92 08/24/20 04:00 102 08/24/20 03:14 94 70 08/24/20 03:11 98 45 92 60 08/24/20 00:41 99 45 96 Bi-Pap 60 102 47 98 60 08/24/20 00:00 Bi-pap 08/24/20 00:00 40 08/24/20 00:00 97.9 100 38 129/83 (98) 93 08/24/20 00:00 94 08/23/20 23:05 60 08/23/20 23:04 101 45 91 40 08/23/20 22:10 40 08/23/20 21:42 100 08/23/20 20:50 90 08/23/20 20:00 98 08/23/20 20:00 5.0 08/23/20 20:00 Bi-pap 08/23/20 20:00 97.5 106 37 144/76 (98) 92 08/23/20 19:27 96 Bi-Pap 35 08/23/20 19:27 95 33 95 35 08/23/20 16:51 97.5 102 30 131/88 (102) 98 08/23/20 16:00 Bi-pap 08/23/20 16:00 97 08/23/20 16:00 97.5 102 30 131/88 (102) 85 08/23/20 16:00 5.0 08/23/20 12:00 99 08/23/20 11:58 Bi-pap 08/23/20 11:57 4.0 08/23/20 11:54 97.5 95 26 136/83 (100) 96 Intake and Output 08/23/20 08/24/20 19:00 07:00 Intake Total 450 ml 375 ml Output Total 1600 ml 1100 ml Balance -1150 ml -725 ml Intake Oral 450 ml 0 ml IV Total 375 ml Output Urine Total 1600 ml 1100 ml # Bowel Movements 1 1 Current Medications Medications (Trade) Dose Ordered Sig/Armand Route PRN Reason Start Time Stop Time Status Last Admin Dose Admin Acetaminophen (Tylenol) 650 mg Q6H PRN NG Mild Pain (Pain Scale 1-3) 08/08/20 14:00 09/07/20 13:59 08/13/20 17:02 Acetaminophen (Tylenol) 650 mg Q6H PRN NG Temp >100.5 08/08/20 14:00 09/07/20 13:59 Acetylcysteine (Mucomyst) 200 mg Q6HRT HHN 08/18/20 10:30 11/16/20 10:29 08/24/20 07:09 Albuterol/ Ipratropium (Albuterol/ Ipratropium) 3 ml Q4H PRN HHN Shortness of Breath 08/23/20 19:30 08/28/20 19:29 08/24/20 07:09 Chlorhexidine Gluconate (Maddie-Hex 2%) 1 applic DAILY@1999 TOPIC 08/07/20 20:00 11/05/20 19:59 08/23/20 21:04 Docusate Sodium (Colace) 100 mg EVERY 12 HOURS NG 08/13/20 21:00 09/11/20 17:59 08/22/20 20:02 Enoxaparin Sodium (Lovenox) 60 mg EVERY 12 HOURS SUBQ 08/05/20 21:00 11/03/20 20:59 08/23/20 07:44 Famotidine (Pepcid) 20 mg Q12H ORAL 08/20/20 21:00 11/18/20 20:59 08/23/20 07:42 Gabapentin (Neurontin) 300 mg THREE TIMES A DAY ORAL 08/20/20 22:00 09/19/20 21:59 08/23/20 12:02 Meropenem 1 gm/ Sodium Chloride 100 ml @ 200 mls/hr Q8HR IVPB 08/19/20 22:00 08/25/20 23:59 08/24/20 05:17 Polyethylene Glycol (Miralax) 17 gm BEDTIME ORAL 08/12/20 21:00 09/11/20 20:59 08/22/20 20:02 Prednisone (predniSONE) 20 mg DAILY ORAL 08/22/20 11:30 09/21/20 11:29 08/23/20 07:42 Vancomycin HCl ([facility] pharmacy to dose) 1 ea DAILY PRN MISC Per rx protocol 08/19/20 16:30 09/18/20 16:29 Vancomycin HCl 500 mg/Dextrose 110 ml @ 110 mls/hr Q8H IVPB 08/24/20 18:00 08/29/20 17:59 Laboratory Tests 08/23/20 15:51: Arterial Blood pH 7.413, Arterial Blood Partial Pressure CO2 53.6H, Arterial Blood Partial Pressure O2 67.3L, Arterial Blood HCO3 33.4H, Arterial Blood Oxygen Saturation 92.0L, Arterial Blood Base Excess 7.9H, Chadwick Test Positive 08/23/20 21:24: Arterial Blood pH 7.345L, Arterial Blood Partial Pressure CO2 66.3*H, Arterial Blood Partial Pressure O2 63.0L, Arterial Blood HCO3 35.4H, Arterial Blood Oxygen Saturation 89.0*L, Arterial Blood Base Excess 8.4H, Chadwick Test Positive 08/24/20 06:06: White Blood Count 17.3H, Red Blood Count 3.11L, Hemoglobin 8.5L, Hematocrit 28.2L, Mean Corpuscular Volume 91, Mean Corpuscular Hemoglobin 27.3, Mean Corpuscular Hemoglobin Concent 30.1L, Red Cell Distribution Width 16.4H, Platelet Count 130L, Mean Platelet Volume 6.6, Neutrophils (%) (Auto) , L ymphocytes (%) (Auto) , Monocytes (%) (Auto) , Eosinophils (%) (Auto) , Basophils (%) (Auto) , Differential Total Cells Counted 100, Neutrophils % (Manual) 89H, Lymphocytes % (Manual) 9L, Monocytes % (Manual) 2, Eosinophils % (Manual) 0, Basophils % (Manual) 0, Band Neutrophils 0, Platelet Estimate Adequate, Platelet Morphology Normal, Hypochromasia 1+, Anisocytosis 1+, Sodium Level 141, Potassium Level 4.7, Chloride Level 100, Carbon Dioxide Level 36H, Anion Gap 6, Blood Urea Nitrogen 16, Creatinine 0.6, Estimat Glomerular Filtration Rate > 60, Glucose Level 110H, Calcium Level 8.5, Phosphorus Level 3.6, Magnesium Level 2.0, Total Bilirubin 0.7, Aspartate Amino Transf (AST/SGOT) 32, Alanine Aminotransferase (ALT/SGPT) 47, Alkaline Phosphatase 63, C-Reactive Protein, Quantitative 4.2H, Pro-B-Type Natriuretic Peptide 262H, Total Protein 5.7L, Albumin 2.9L, Globulin 2.8, Albumin/Globulin Ratio 1.0, Vancomycin Level Trough 20.0H 08/24/20 06:16: Arterial Blood pH 7.343L, Arterial Blood Partial Pressure CO2 72.4*H, Arterial Blood Partial Pressure O2 78.1, Arterial Blood HCO3 38.4H, Arterial Blood Oxygen Saturation 93.8L, Arterial Blood Base Excess 11.1*H, Chadwick Test Positive 08/24/20 07:56: Arterial Blood pH 7.320L, Arterial Blood Partial Pressure CO2 78.1*H, Arterial Blood Partial Pressure O2 136.5H, Arterial Blood HCO3 39.3H, Arterial Blood Oxygen Saturation 98.1, Arterial Blood Base Excess 11.4*H, Chadwick Test Positive Height (Feet): 6 Height (Inches): 1.00 Weight (Pounds): 190 General Appearance: no apparent distress EENT: other - On BiPAP Cardiovascular: tachycardia Respiratory/Chest: decreased breath sounds Abdomen: distended Aashish Burgess MD Aug 24, 2020 10:30
--- NOTE | 2020-08-24 10:35 | NUR ---
RESPIRATORY NOTES PT intubated @1015 with 7.5 ETT @23cm lipline. PT began to become bradycardic and code called @1022. ER readjusted ETT tube, while I began compressions. ROSC successful @1025. PT now placed on ventilator - AC/VC 18 500 +5 100%.
--- NOTE | 2020-08-24 10:58 | NUR ---
NURSE NOTES: Patient is coded #2. See code blue sheet.
--- NOTE | 2020-08-24 11:07 | NUR ---
NURSE NOTES: ER pronounced @1107.
--- NOTE | 2020-08-24 11:28 | NUR ---
NURSE NOTES: Dr. Saul made aware of patient's .
--- NOTE | 2020-08-24 11:35 | NUR ---
NURSE NOTES: Edwin Beckham NP made aware of pt's .
--- NOTE | 2020-08-24 11:37 | Surgery Progress Note ---
Surgery Progress Note Subjective Additional Comments acute decline respiratory insufficiency intubated code blue acls ?aspiration Objective Last 24 Hour Vital Signs Date Time Temp Pulse Resp B/P (MAP) Pulse Ox O2 Delivery O2 Flow Rate FiO2 08/24/20 10:15 140 19 100 08/24/20 08:00 100 08/24/20 08:00 Bi-pap 08/24/20 07:24 107 45 91 Bi-Pap 100 106 39 95 100 08/24/20 07:24 93 Bi-Pap 100 08/24/20 06:45 112 49 100 100 08/24/20 05:07 95 100 08/24/20 04:00 Bi-pap 08/24/20 04:00 40 08/24/20 04:00 97.7 105 32 116/73 (87) 92 08/24/20 04:00 102 08/24/20 03:14 94 70 08/24/20 03:11 98 45 92 60 08/24/20 00:41 99 45 96 Bi-Pap 60 102 47 98 60 08/24/20 00:00 Bi-pap 08/24/20 00:00 40 08/24/20 00:00 97.9 100 38 129/83 (98) 93 08/24/20 00:00 94 08/23/20 23:05 60 08/23/20 23:04 101 45 91 40 08/23/20 22:10 40 08/23/20 21:42 100 08/23/20 20:50 90 08/23/20 20:00 98 08/23/20 20:00 5.0 08/23/20 20:00 Bi-pap 08/23/20 20:00 97.5 106 37 144/76 (98) 92 08/23/20 19:27 96 Bi-Pap 35 08/23/20 19:27 95 33 95 35 08/23/20 16:51 97.5 102 30 131/88 (102) 98 08/23/20 16:00 Bi-pap 08/23/20 16:00 97 08/23/20 16:00 97.5 102 30 131/88 (102) 85 08/23/20 16:00 5.0 08/23/20 12:00 99 08/23/20 11:58 Bi-pap 08/23/20 11:57 4.0 08/23/20 11:54 97.5 95 26 136/83 (100) 96 I&O Intake and Output 08/23/20 08/24/20 19:00 07:00 Intake Total 450 ml 375 ml Output Total 1600 ml 1100 ml Balance -1150 ml -725 ml Intake Oral 450 ml 0 ml IV Total 375 ml Output Urine Total 1600 ml 1100 ml # Bowel Movements 1 1 Cardiovascular: RSR Respiratory: decreased breath sounds Abdomen: soft, present bowel sounds, non-distended Laboratory Tests Test 08/23/20 15:51 08/23/20 21:24 08/24/20 06:06 08/24/20 06:16 Arterial Blood pH 7.413 (7.350-7.450) 7.345 (7.350-7.450) 7.343 (7.350-7.450) Arterial Blood Partial Pressure CO2 53.6 mmHg (35.0-45.0) H 66.3 mmHg (35.0-45.0) *H 72.4 mmHg (35.0-45.0) *H Arterial Blood Partial Pressure O2 67.3 mmHg (75.0-100.0) L 63.0 mmHg (75.0-100.0) L 78.1 mmHg (75.0-100.0) Arterial Blood HCO3 33.4 mmol/L (22.0-26.0) H 35.4 mmol/L (22.0-26.0) H 38.4 mmol/L (22.0-26.0) H Arterial Blood Oxygen Saturation 92.0 % (95-100) L 89.0 % (95-100) *L 93.8 % (95-100) L Arterial Blood Base Excess 7.9 (-2-2) H 8.4 (-2-2) H 11.1 (-2-2) *H Chadwick Test Positive Positive Positive White Blood Count 17.3 K/UL (4.8-10.8) H Red Blood Count 3.11 M/UL (4.70-6.10) L Hemoglobin 8.5 G/DL (14.2-18.0) L Hematocrit 28.2 % (42.0-52.0) L Mean Corpuscular Volume 91 FL (80-99) Mean Corpuscular Hemoglobin 27.3 PG (27.0-31.0) Mean Corpuscular Hemoglobin Concent 30.1 G/DL (32.0-36.0) L Red Cell Distribution Width 16.4 % (11.6-14.8) H Platelet Count 130 K/UL (150-450) L Mean Platelet Volume 6.6 FL (6.5-10.1) Neutrophils (%) (Auto) % (45.0-75.0) Lymphocytes (%) (Auto) % (20.0-45.0) Monocytes (%) (Auto) % (1.0-10.0) Eosinophils (%) (Auto) % (0.0-3.0) Basophils (%) (Auto) % (0.0-2.0) Differential Total Cells Counted 100 Neutrophils % (Manual) 89 % (45-75) H Lymphocytes % (Manual) 9 % (20-45) L Monocytes % (Manual) 2 % (1-10) Eosinophils % (Manual) 0 % (0-3) Basophils % (Manual) 0 % (0-2) Band Neutrophils 0 % (0-8) Platelet Estimate Adequate Platelet Morphology Normal Hypochromasia 1+ Anisocytosis 1+ Sodium Level 141 MMOL/L (136-145) Potassium Level 4.7 MMOL/L (3.5-5.1) Chloride Level 100 MMOL/L (98-107) Carbon Dioxide Level 36 MMOL/L (21-32) H Anion Gap 6 mmol/L (5-15) Blood Urea Nitrogen 16 mg/dL (7-18) Creatinine 0.6 MG/DL (0.55-1.30) Estimat Glomerular Filtration Rate > 60 mL/min (>60) Glucose Level 110 MG/DL (74-106) H Calcium Level 8.5 MG/DL (8.5-10.1) Phosphorus Level 3.6 MG/DL (2.5-4.9) Magnesium Level 2.0 MG/DL (1.8-2.4) Total Bilirubin 0.7 MG/DL (0.2-1.0) Aspartate Amino Transf (AST/SGOT) 32 U/L (15-37) Alanine Aminotransferase (ALT/SGPT) 47 U/L (12-78) Alkaline Phosphatase 63 U/L (46-116) C-Reactive Protein, Quantitative 4.2 mg/dL (0.00-0.90) H Pro-B-Type Natriuretic Peptide 262 pg/mL (0-125) H Total Protein 5.7 G/DL (6.4-8.2) L Albumin 2.9 G/DL (3.4-5.0) L Globulin 2.8 g/dL Albumin/Globulin Ratio 1.0 (1.0-2.7) Vancomycin Level Trough 20.0 ug/mL (5.0-12.0) H Test 08/24/20 07:56 Arterial Blood pH 7.320 (7.350-7.450) Arterial Blood Partial Pressure CO2 78.1 mmHg (35.0-45.0) *H Arterial Blood Partial Pressure O2 136.5 mmHg (75.0-100.0) H Arterial Blood HCO3 39.3 mmol/L (22.0-26.0) H Arterial Blood Oxygen Saturation 98.1 % (95-100) Arterial Blood Base Excess 11.4 (-2-2) *H Chadwick Test Positive Plan Problems: (1) Abdominal distension Assessment & Plan: 79M abdominal distention, respiratory decline, altered mental status. on exam noted abd soft, mild distended, non tender. no n/v/f/c. unlikely aspiration. non tender one exam. pending urine and covid test. no acute surgical intervention. hold on ct. kub ordered. will follow with exam and recs. keep npo for now. iv fluids. respiratory pulm support. will follow with recs thank you decline since admission now intubated ng tube to suction no acute surgical intervention cont abx kub noted wean vent enema when stable improved tolerating diet cont diet no n/v labs okay The rectum is considerably distended with stool. Considerable stool is also seen in the descending colon. The colon is diffusely gas filled, upper limits of normal in caliber. No significant small bowel gas demonstrated. No masses or unusual calcifications. The included lung bases demonstrate bilateral right greater than left pleural effusions. There is a Butler catheter Impression: Distended stool-filled rectum, fecal impaction possible Gas-filled upper limits of normal caliber colon, nonspecific Bilateral right greater than left pleural effusions (2) UTI (urinary tract infection) (3) Pneumonia (4) Multiple pulmonary nodules (5) Respiratory failure with hypoxia Assessment & Plan: cont weaning acute worsening intubated on support acls code blue (6) Pneumonia due to COVID-19 virus (7) History of CVA (cerebrovascular accident) (8) COPD (chronic obstructive pulmonary disease) (9) HTN (hypertension) (10) Hx of prostatic malignancy (11) Major depression (12) Seizure disorder (13) Right lower lobe pneumonia (14) Respiratory failure (15) Oliguria (16) Electrolyte imbalance (17) Anemia Destin Brown Aug 24, 2020 11:37
--- NOTE | 2020-08-24 12:04 | Pulmonology Progress Note ---
Subjective ROS Limited/Unobtainable: Yes Interval Events: seen in ICU this AM Constitutional: Reports: fatigue, other - altered; Denies: fever HEENT: Repors: no symptoms Respiratory: Reports: shortness of breath Cardiovascular: Reports: no symptoms Gastrointestinal/Abdominal: Denies: nausea Genitourinary: Reports: no symptoms Neurologic: Reports: no symptoms Psychiatric: Reports: other - NA Skin: Denies: rash Musculoskeletal: Denies: pain Allergies: Coded Allergies: PENICILLINS (Verified Allergy, Unknown, 03/10/20) PHENYTOIN (Verified Allergy, Unknown, 03/10/20) Objective Last 24 Hour Vital Signs Date Time Temp Pulse Resp B/P (MAP) Pulse Ox O2 Delivery O2 Flow Rate FiO2 08/24/20 11:00 108 30 149/106 (120) 84 08/24/20 10:30 101 70 126/73 (90) 100 08/24/20 10:15 140 19 100 08/24/20 10:00 112 21 105/88 (94) 100 08/24/20 09:00 111 30 106/69 (81) 85 08/24/20 08:00 100 08/24/20 08:00 97.2 112 21 91/71 (78) 98 08/24/20 08:00 Bi-pap 08/24/20 08:00 110 08/24/20 07:24 107 45 91 Bi-Pap 100 106 39 95 100 08/24/20 07:24 93 Bi-Pap 100 08/24/20 07:02 102 27 97/84 (88) 77 08/24/20 06:45 112 49 100 100 08/24/20 05:07 95 100 08/24/20 04:00 Bi-pap 08/24/20 04:00 40 08/24/20 04:00 97.7 105 32 116/73 (87) 92 08/24/20 04:00 102 08/24/20 03:14 94 70 08/24/20 03:11 98 45 92 60 08/24/20 00:41 99 45 96 Bi-Pap 60 102 47 98 60 08/24/20 00:00 Bi-pap 08/24/20 00:00 40 08/24/20 00:00 97.9 100 38 129/83 (98) 93 08/24/20 00:00 94 08/23/20 23:05 60 08/23/20 23:04 101 45 91 40 08/23/20 22:10 40 08/23/20 21:42 100 08/23/20 20:50 90 08/23/20 20:00 98 08/23/20 20:00 5.0 08/23/20 20:00 Bi-pap 08/23/20 20:00 97.5 106 37 144/76 (98) 92 08/23/20 19:27 96 Bi-Pap 35 08/23/20 19:27 95 33 95 35 08/23/20 16:51 97.5 102 30 131/88 (102) 98 08/23/20 16:00 Bi-pap 08/23/20 16:00 97 08/23/20 16:00 97.5 102 30 131/88 (102) 85 08/23/20 16:00 5.0 08/23/20 12:00 99 Intake and Output 08/23/20 08/24/20 19:00 07:00 Intake Total 450 ml 375 ml Output Total 1600 ml 1100 ml Balance -1150 ml -725 ml Intake Oral 450 ml 0 ml IV Total 375 ml Output Urine Total 1600 ml 1100 ml # Bowel Movements 1 1 General Appearance: no acute distress HEENT: normocephalic Respiratory: chest wall non-tender, lungs clear Cardiovascular: normal peripheral pulses, normal rate Abdomen: normal bowel sounds Extremities: no cyanosis Laboratory Tests 08/23/20 15:51: Arterial Blood pH 7.413, Arterial Blood Partial Pressure CO2 53.6H, Arterial Blood Partial Pressure O2 67.3L, Arterial Blood HCO3 33.4H, Arterial Blood Oxygen Saturation 92.0L, Arterial Blood Base Excess 7.9H, Chadwick Test Positive 08/23/20 21:24: Arterial Blood pH 7.345L, Arterial Blood Partial Pressure CO2 66.3*H, Arterial Blood Partial Pressure O2 63.0L, Arterial Blood HCO3 35.4H, Arterial Blood Oxygen Saturation 89.0*L, Arterial Blood Base Excess 8.4H, Chadwick Test Positive 08/24/20 06:06: White Blood Count 17.3H, Red Blood Count 3.11L, Hemoglobin 8.5L, Hematocrit 28.2L, Mean Corpuscular Volume 91, Mean Corpuscular Hemoglobin 27.3, Mean Corpuscular Hemoglobin Concent 30.1L, Red Cell Distribution Width 16.4H, Platelet Count 130L, Mean Platelet Volume 6.6, Neutrophils (%) (Auto) , Lymphocytes (%) (Auto) , Monocytes (%) (Auto) , Eosinophils (%) (Auto) , Basophils (%) (Auto) , Differential Total Cells Counted 100, Neutrophils % (Manual) 89H, Lymphocytes % (Manual) 9L, Monocytes % (Manual) 2, Eosinophils % (Manual) 0, Basophils % (Manual) 0, Band Neutrophils 0, Platelet Estimate Adequate, Platelet Morphology Normal, Hypochromasia 1+, Anisocytosis 1+, Sodium Level 141, Potassium Level 4.7, Chloride Level 100, Carbon Dioxide Level 36H, Anion Gap 6, Blood Urea Nitrogen 16, Creatinine 0.6, Estimat Glomerular Filtration Rate > 60, Glucose Level 110H, Calcium Level 8.5, Phosphorus Level 3.6, Magnesium Level 2.0, Total Bilirubin 0.7, Aspartate Amino Transf (AST/SGOT) 32, Alanine Aminotransferase (ALT/SGPT) 47, Alkaline Phosphatase 63, C-Reactive Protein, Quantitative 4.2H, Pro-B-Type Natriuretic Peptide 262H, Total Protein 5.7L, Albumin 2.9L, Globulin 2.8, Albumin/Globulin Ratio 1.0, Vancomycin Level Trough 20.0H 08/24/20 06:16: Arterial Blood pH 7.343L, Arterial Blood Partial Pressure CO2 72.4*H, Arterial Blood Partial Pressure O2 78.1, Arterial Blood HCO3 38.4H, Arterial Blood Oxygen Saturation 93.8L, Arterial Blood Base Excess 11.1*H, Chadwick Test Positive 08/24/20 07:56: Arterial Blood pH 7.320L, Arterial Blood Partial Pressure CO2 78.1*H, Arterial Blood Partial Pressure O2 136.5H, Arterial Blood HCO3 39.3H, Arterial Blood Oxygen Saturation 98.1, Arterial Blood Base Excess 11.4*H, Chadwick Test Positive Current Medications Medications (Trade) Dose Ordered Sig/Armand Route PRN Reason Start Time Stop Time Status Last Admin Dose Admin Acetaminophen (Tylenol) 650 mg Q6H PRN NG Mild Pain (Pain Scale 1-3) 08/08/20 14:00 09/07/20 13:59 08/13/20 17:02 Acetaminophen (Tylenol) 650 mg Q6H PRN NG Temp >100.5 08/08/20 14:00 09/07/20 13:59 Acetylcysteine (Mucomyst) 200 mg Q6HRT HHN 08/18/20 10:30 11/16/20 10:29 08/24/20 07:09 Albuterol/ Ipratropium (Albuterol/ Ipratropium) 3 ml Q4H PRN HHN Shortness of Breath 08/23/20 19:30 08/28/20 19:29 08/24/20 07:09 Chlorhexidine Gluconate (Maddie-Hex 2%) 1 applic DAILY@2000 TOPIC 08/07/20 20:00 11/05/20 19:59 08/23/20 21:04 Docusate Sodium (Colace) 100 mg EVERY 12 HOURS NG 08/13/20 21:00 09/11/20 17:59 08/22/20 20:02 Enoxaparin Sodium (Lovenox) 60 mg EVERY 12 HOURS SUBQ 08/05/20 21:00 11/03/20 20:59 08/23/20 07:44 Famotidine (Pepcid) 20 mg Q12H ORAL 08/20/20 21:00 11/18/20 20:59 08/23/20 07:42 Gabapentin (Neurontin) 300 mg THREE TIMES A DAY ORAL 08/20/20 22:00 09/19/20 21:59 08/23/20 12:02 Meropenem 1 gm/ Sodium Chloride 100 ml @ 200 mls/hr Q8HR IVPB 08/19/20 22:00 08/25/20 23:59 08/24/20 05:17 Polyethylene Glycol (Miralax) 17 gm BEDTIME ORAL 08/12/20 21:00 09/11/20 20:59 08/22/20 20:02 Prednisone (predniSONE) 20 mg DAILY ORAL 08/22/20 11:30 09/21/20 11:29 08/23/20 07:42 Vancomycin HCl ([facility] pharmacy to dose) 1 ea DAILY PRN MISC Per rx protocol 08/19/20 16:30 09/18/20 16:29 Vancomycin HCl 500 mg/Dextrose 110 ml @ 110 mls/hr Q8H IVPB 08/24/20 18:00 08/29/20 17:59 Assessment/Plan Assessment/Plan 1. UTI -s/p empiric antibiotics -Follow-up UCx negative (08/03) 2. Pneumonia -s/p broad-spectrum antibiotics - CXR concerning for volume loss; latest CXR shows RUL atelectasis - CT chest shows dense RUL and RML consolidation - High suspicion for RBI narrowing ; no obvious endobronchial narrowing noted on bronchoscopy - CXR (08/18) New/increased right upper lobe infiltrate and atelectasis 3. COPD exacerbation -Now extubated 4. Respiratory distress - Doing well off BiPAP; on nasal O2 -> back on BiPAP this AM due to markedly worsening respiratory distress with right eye deviation and unresponsive to verbal stimulus -> Intubation was indicated - will taper steroid - continue HHN 5. History of seizures -Risk of aspiration -Monitor for seizure activity 6. Elevated CRP -D-dimer wnl -His outpatient medications include Eliquis (hx of A fib?) - Continue Eliquis Pt was seen this AM; pt appeared more altered than yesterday with right eye lateral deviation, unresponsive to verbal stimulus -> ER MD intubated him. Pt coded. CPR attempted and ROSC achieved. However, pt soon coded again and failed to get ROSC with CPR this time. Pt this AM. The care of this patient was discussed with my supervising physician Time spent for this encounter was approximately 31 minutes Edwin Beckham Aug 24, 2020 12:04
[2020-08-24] MEDS ORDERED: Sodium Bicarbonate 50ml Carp ONE (13:32)
--- NOTE | 2020-08-24 13:32 | NUR ---
NURSE NOTES: [place] [facility] [place]
--- NOTE | 2020-08-24 13:33 | Emergency Room Report ---
History of Present Illness General Chief Complaint: Altered Mental Status Source: Medical Record, PMD Present Illness Allergies: Coded Allergies: PENICILLINS (Verified Allergy, Unknown, 03/10/20) PHENYTOIN (Verified Allergy, Unknown, 03/10/20) COVID-19 Screening Contact w/high risk pt: No Experienced COVID-19 symptoms?: Yes COVID-19 Testing performed SURVEY ASSOCIATE: No COVID-19 Screening: Negative COVID-19 Nursing Documentation-PMH Past Medical History: No History, Except For Hx Cardiac Problems: Yes Hx Hypertension: Yes Hx COPD: Yes - COPD, ARDS Hx Cancer: Yes Hx Gastrointestinal Problems: Yes Hx Neurological Problems: Yes Hx Seizures: Yes Hx Weakness: Yes Physical Exam Vital Signs Date Time Temp Pulse Resp B/P (MAP) Pulse Ox O2 Delivery O2 Flow Rate FiO2 08/20/20 07:10 72 28 98 08/20/20 07:48 Bi-Pap 40 08/20/20 08:00 97.7 99/59 (72) 08/20/20 08:15 2.0 Procedures Intubation Intubation : Consent: Emergent Tube Size (cm): 7.5 Medications: Etomidate, Rocuronium Breath Sounds after Intubation: equal Intubation Complications: no complications Attempts: One Patient Tolerated: Well Medical Decision Making Diagnostic Impression: Primary Impression: Respiratory failure Qualified Codes: J96.01 - Acute respiratory failure with hypoxia; J96.02 - Acute respiratory failure with hypercapnia Additional Impression: Right lower lobe pneumonia Qualified Codes: J13 - Pneumonia due to Streptococcus pneumoniae ER Course I was called to the bedside as the patient had to be emergently intubated. When I arrived the patient was completely obtunded with agonal respirations on BiPAP. He was quickly intubated using RSI with medications etomidate and rocuronium given. Was performed under video glide scope laryngoscopy. Intubation was performed without complication and patient maintained a normal oxygen saturation throughout the process. However several minutes after the intubation was completed patient began to have gradually worsening bradycardia and eventually went pulseless. CPR was performed. Patient received epinephrine. At the first pulse check the patient had regained pulses and had a normal blood pressure. I was then soon called back to the ICU for another CODE BLUE. When I arrived CPR was in progress. Please see separate CPR note. Several rounds of CPR ACLS were performed with multiple doses of epinephrine and sodium bicarbonate given. Despite this the patient remained pulseless in PEA arrest throughout each pulse check. Time of 1107. Last Vital Signs Date Time Temp Pulse Resp B/P (MAP) Pulse Ox O2 Delivery O2 Flow Rate FiO2 08/24/20 11:00 108 30 149/106 (120) 84 08/24/20 10:15 100 08/24/20 08:00 97.2 08/24/20 08:00 Bi-pap 08/23/20 20:00 5.0 Disposition: ADMITTED INPATIENT Condition: Critical Referrals: NOT CHOSEN IPA/,REFERRING (PCP) David Sarmiento M.D. Aug 24, 2020 13:33
--- NOTE | 2020-08-24 13:51 | Cardiac Electrophysiology PN ---
Assessment/Plan Assessment/Plan 1. Respiratory failure. Extubated 08/14/20 and reintubated today Echo showed EF 50%. 2. Questionable congestive heart failure. EF normal and BNP was 39. 3. S/P Septic shock 4. History of COVID pneumonia, status post vaccination for COVID. 5. DVT 6. Full Code. Coded twice today and at 11.07 DW [employer] and Dr. Burgess who saw him earlier today Subjective Subjective In ICU, extubated on 08/14/20, transferred to ICU on BIPAP yesterday. COded this am for respiratory failure and was intubated and resuscitated Had a second code but did not make it and passed at 11.07 per ER MD and [employer] Objective Last 24 Hour Vital Signs Date Time Temp Pulse Resp B/P (MAP) Pulse Ox O2 Delivery O2 Flow Rate FiO2 08/24/20 11:00 108 30 149/106 (120) 84 08/24/20 10:30 101 70 126/73 (90) 100 08/24/20 10:15 140 19 100 08/24/20 10:00 112 21 105/88 (94) 100 08/24/20 09:00 111 30 106/69 (81) 85 08/24/20 08:00 100 08/24/20 08:00 97.2 112 21 91/71 (78) 98 08/24/20 08:00 Bi-pap 08/24/20 08:00 110 08/24/20 07:24 107 45 91 Bi-Pap 100 106 39 95 100 08/24/20 07:24 93 Bi-Pap 100 08/24/20 07:02 102 27 97/84 (88) 77 08/24/20 06:45 112 49 100 100 08/24/20 05:07 95 100 08/24/20 04:00 Bi-pap 08/24/20 04:00 40 08/24/20 04:00 97.7 105 32 116/73 (87) 92 08/24/20 04:00 102 08/24/20 03:14 94 70 08/24/20 03:11 98 45 92 60 08/24/20 00:41 99 45 96 Bi-Pap 60 102 47 98 60 08/24/20 00:00 Bi-pap 08/24/20 00:00 40 08/24/20 00:00 97.9 100 38 129/83 (98) 93 08/24/20 00:00 94 08/23/20 23:05 60 08/23/20 23:04 101 45 91 40 08/23/20 22:10 40 08/23/20 21:42 100 08/23/20 20:50 90 08/23/20 20:00 98 08/23/20 20:00 5.0 08/23/20 20:00 Bi-pap 08/23/20 20:00 97.5 106 37 144/76 (98) 92 08/23/20 19:27 96 Bi-Pap 35 08/23/20 19:27 95 33 95 35 08/23/20 16:51 97.5 102 30 131/88 (102) 98 08/23/20 16:00 Bi-pap 08/23/20 16:00 97 08/23/20 16:00 97.5 102 30 131/88 (102) 85 08/23/20 16:00 5.0 Intake and Output 08/23/20 08/24/20 19:00 07:00 Intake Total 450 ml 375 ml Output Total 1600 ml 1100 ml Balance -1150 ml -725 ml Intake Oral 450 ml 0 ml IV Total 375 ml Output Urine Total 1600 ml 1100 ml # Bowel Movements 1 1 Laboratory Tests Test 08/23/20 15:51 08/23/20 21:24 08/24/20 06:06 08/24/20 06:16 Arterial Blood pH 7.413 (7.350-7.450) 7.345 (7.350-7.450) 7.343 (7.350-7.450) Arterial Blood Partial Pressure CO2 53.6 mmHg (35.0-45.0) H 66.3 mmHg (35.0-45.0) *H 72.4 mmHg (35.0-45.0) *H Arterial Blood Partial Pressure O2 67.3 mmHg (75.0-100.0) L 63.0 mmHg (75.0-100.0) L 78.1 mmHg (75.0-100.0) Arterial Blood HCO3 33.4 mmol/L (22.0-26.0) H 35.4 mmol/L (22.0-26.0) H 38.4 mmol/L (22.0-26.0) H Arterial Blood Oxygen Saturation 92.0 % (95-100) L 89.0 % (95-100) *L 93.8 % (95-100) L Arterial Blood Base Excess 7.9 (-2-2) H 8.4 (-2-2) H 11.1 (-2-2) *H Chadwick Test Positive Positive Positive White Blood Count 17.3 K/UL (4.8-10.8) H Red Blood Count 3.11 M/UL (4.70-6.10) L Hemoglobin 8.5 G/DL (14.2-18.0) L Hematocrit 28.2 % (42.0-52.0) L Mean Corpuscular Volume 91 FL (80-99) Mean Corpuscular Hemoglobin 27.3 PG (27.0-31.0) Mean Corpuscular Hemoglobin Concent 30.1 G/DL (32.0-36.0) L Red Cell Distribution Width 16.4 % (11.6-14.8) H Platelet Count 130 K/UL (150-450) L Mean Platelet Volume 6.6 FL (6.5-10.1) Neutrophils (%) (Auto) % (45.0-75.0) Lymphocytes (%) (Auto) % (20.0-45.0) Monocytes (%) (Auto) % (1.0-10.0) Eosinophils (%) (Auto) % (0.0-3.0) Basophils (%) (Auto) % (0.0-2.0) Differential Total Cells Counted 100 Neutrophils % (Manual) 89 % (45-75) H Lymphocytes % (Manual) 9 % (20-45) L Monocytes % (Manual) 2 % (1-10) Eosinophils % (Manual) 0 % (0-3) Basophils % (Manual) 0 % (0-2) Band Neutrophils 0 % (0-8) Platelet Estimate Adequate Platelet Morphology Normal Hypochromasia 1+ Anisocytosis 1+ Sodium Level 141 MMOL/L (136-145) Potassium Level 4.7 MMOL/L (3.5-5.1) Chloride Level 100 MMOL/L (98-107) Carbon Dioxide Level 36 MMOL/L (21-32) H Anion Gap 6 mmol/L (5-15) Blood Urea Nitrogen 16 mg/dL (7-18) Creatinine 0.6 MG/DL (0.55-1.30) Estimat Glomerular Filtration Rate > 60 mL/min (>60) Glucose Level 110 MG/DL (74-106) H Calcium Level 8.5 MG/DL (8.5-10.1) Phosphorus Level 3.6 MG/DL (2.5-4.9) Magnesium Level 2.0 MG/DL (1.8-2.4) Total Bilirubin 0.7 MG/DL (0.2-1.0) Aspartate Amino Transf (AST/SGOT) 32 U/L (15-37) Alanine Aminotransferase (ALT/SGPT) 47 U/L (12-78) Alkaline Phosphatase 63 U/L (46-116) C-Reactive Protein, Quantitative 4.2 mg/dL (0.00-0.90) H Pro-B-Type Natriuretic Peptide 262 pg/mL (0-125) H Total Protein 5.7 G/DL (6.4-8.2) L Albumin 2.9 G/DL (3.4-5.0) L Globulin 2.8 g/dL Albumin/Globulin Ratio 1.0 (1.0-2.7) Vancomycin Level Trough 20.0 ug/mL (5.0-12.0) H Test 08/24/20 07:56 Arterial Blood pH 7.320 (7.350-7.450) Arterial Blood Partial Pressure CO2 78.1 mmHg (35.0-45.0) *H Arterial Blood Partial Pressure O2 136.5 mmHg (75.0-100.0) H Arterial Blood HCO3 39.3 mmol/L (22.0-26.0) H Arterial Blood Oxygen Saturation 98.1 % (95-100) Arterial Blood Base Excess 11.4 (-2-2) *H Chadwick Test Positive Devyn Magdaleno MD Aug 24, 2020 13:51
[2020-08-24] MEDS ORDERED: Vancomycin 500mg/D5W 110ml IVPB SCH ×2 (18:00)
== END 2020-08-24 13:33 | disposition expired | DRG 870 ==
LOC: EDBD 18:51 → EMR 19:05 → 2W 20:25 → EDBEDREQ 08-04 03:23 → ICU 08-05 10:35 → 2W 08-15 20:33 → ICU 08-24 07:00
PROC: 5A1955Z Respiratory Ventilation, Greater than 96 Consecutive Hours (ICD-10-PCS; principal; 2020-08-05)
PROC: 06HM33Z Insertion of Infusion Device into Right Femoral Vein, Percutaneous Approach (ICD-10-PCS; principal; 2020-08-05)
PROC: 0BH17EZ Insertion of Endotracheal Airway into Trachea, Via Natural or Artificial Opening (ICD-10-PCS; principal; 2020-08-05)
PROC: 0BJ08ZZ Inspection of Tracheobronchial Tree, Via Natural or Artificial Opening Endoscopic (ICD-10-PCS; 2020-08-08)
PROC: B548ZZA Ultrasonography of Superior Vena Cava, Guidance (ICD-10-PCS; 2020-08-10)
PROC: 02HV33Z Insertion of Infusion Device into Superior Vena Cava, Percutaneous Approach (ICD-10-PCS; 2020-08-10)
PROC: 5A12012 Performance of Cardiac Output, Single, Manual (ICD-10-PCS; 2020-08-24)
PROC: 0BH17EZ Insertion of Endotracheal Airway into Trachea, Via Natural or Artificial Opening (ICD-10-PCS; 2020-08-24)
DX: A41.9 Sepsis, unspecified organism (principal); J18.9 Pneumonia, unspecified organism; J96.01 Acute respiratory failure with hypoxia; J96.02 Acute respiratory failure with hypercapnia; J15.212 Pneumonia due to Methicillin resistant Staphylococcus aureus; J44.0 Chronic obstructive pulmonary disease with (acute) lower respiratory infection; N39.0 Urinary tract infection, site not specified; J44.1 Chronic obstructive pulmonary disease with (acute) exacerbation; G40.909 Epilepsy, unspecified, not intractable, without status epilepticus; I11.0 Hypertensive heart disease with heart failure; I50.9 Heart failure, unspecified; R34 Anuria and oliguria; Z85.46 Personal history of malignant neoplasm of prostate; Z86.73 Personal history of transient ischemic attack (TIA), and cerebral infarction without residual deficits; I73.9 Peripheral vascular disease, unspecified; K21.9 Gastro-esophageal reflux disease without esophagitis; F32.9 Major depressive disorder, single episode, unspecified; Z86.16 Personal history of COVID-19; R14.0 Abdominal distension (gaseous); D64.9 Anemia, unspecified; N40.0 Benign prostatic hyperplasia without lower urinary tract symptoms; E87.8 Other disorders of electrolyte and fluid balance, not elsewhere classified
CPT/HCPCS: 36415; 36569; 71045; 71250; 74018; 76937; 80048; 80053; 80061; 80202; 81003; 82306; 82550; 82553; 82607; 82728; 82746; 82803; 82962; 82977; 83036; 83540; 83550; 83605; 83615; 83690; 83735; 83880; 84100; 84443; 84484; 84550; 85007; 85025; 85379; 85610; 85730; 86140; 87040; 87070; 87081; 87086; 87181; 87205; 92950; 93005; 93306; 94002; 94003; 94640; 94660; 96361; 96365; 96375; 99291; J0171; J2250; J7030; J7620; J8499